=== PATIENT | female | born 1965 | race Caucasian/White ===

== ENCOUNTER → 2017-08-04 | Day surgery (SDC) | payer OTHER ==
[~2017-08-04] VITALS: Ht 170.2 cm; Wt 59.0 kg
[~2017-08-04] MED LIST: COSYNTROPIN INJ 1 MCG in SYRINGE 0 ML IV SCH; GABA-112 PO; GABA-1220 PO; GEODON; HYDR-600 PO; LIDOCAINE PATCH; MORP15TA19; NAPR-22; SIMV10TA2; TRAZ100T29 PO; TRICOR; VENL150C71 PO; [UNRECOGNIZED DRUG - OTHER] PO; [UNRECOGNIZED DRUG - OTHER] PO; cymbalta
[2017-08-04 08:01] VITALS: BP 105/68; PULSE 65; TEMP 36.6; O2SAT 98; Ht 170.2 cm; Wt 59.0 kg
[2017-08-04 08:55] VITALS: BP 107/67; PULSE 51; TEMP 36.6
[2017-08-04 09:27] VITALS: BP 96/45; PULSE 54; TEMP 36.5
--- NOTE | 2017-08-06 14:06 | EDITING REQUIRED CODING QUERY ---
TREATMENT RENDERED WITHOUT A DIAGNOSIS To promote full compliance with coding requirements relating to patient care, physician participation is requested in all cases of remote coders uncertainty. Please assist us with the question(s) below: Coding Question: The patient is receiving CORTROSYN INJECTION, as noted in the ORDER HISTORY of the record. Please document the diagnosis that is being addressed by the medication/treatment. Provider Response: Thank you Anna De Jesus
--- NOTE | 2017-09-04 08:59 | CODING QUERY NO DIAGNOSIS ---
TREATMENT RENDERED WITHOUT A DIAGNOSIS To promote full compliance with coding requirements relating to patient care, physician participation is requested in all cases of poultry scientist uncertainty. Please assist us with providing a diagnosis/symptom for the test(s) below: A diagnosis/symptom was not documented on your Order. A valid diagnosis/symptom is required to bill all insurances. Please remember that we are unable to code a diagnosis of rule out, probable, possible, questionable, or suspected. Tests that require a diagnosis: * IV COSYNTROPIN DIAGNOSIS: * DOS: 08/03/17 Provider Signature: Date: Thank you Anna De Jesus Health Information Management Once completed, please kindly fax back to [phone] For questions please call [phone]
== END | disposition home or self-care (01) ==
LOC: C.MTU 07:41
PROVIDERS: ATTEND Internal Medicine Endocrinology, Diabetes & Metabolism
DX: E27.40 Unspecified adrenocortical insufficiency (principal)

== ENCOUNTER 2024-04-01 12:08 | Inpatient (IN) ==
[2024-04-01 12:59] LABS: Appearance Urine Clear (Clear); Bilirubin Urine Negative (Negative); Blood Urine Negative (Negative); Color Urine Yellow; Glucose Urine UA Negative (Negative); Ketones Urine Trace (Negative); Leukocyte Esterase Urine Negative (Negative); Nitrite Urine Negative (Negative); Protein Urine Negative (Negative); Specific Gravity Urine 1.008 (1.000-1.030); Urobilinogen Urine Negative (Negative); pH Urine 6.5 (4.5-7.5)
[2024-04-01 13:17] LABS: Basophils # (auto) 0.08 K/uL (0.00-0.20); Basophils % (auto) 0.9 %; Eosinophils # (auto) 0.08 K/uL (0.00-0.50); Eosinophils % (auto) 0.9 %; Hematocrit (blood only) 50.3 % (37.0-47.0); Hemoglobin 17.2 g/dl (12.0-16.0); Immature Granulocytes # (auto) 0.03 K/uL (0.01-0.20); Immature Granulocytes % (auto) 0.3 %; Lymphocytes # (auto) 2.01 K/uL (1.20-3.40); Lymphocytes % (auto) 22.3 %; Mean Corpuscular Hemoglobin 28.8 pg (25.0-34.0); Mean Corpuscular Hgb Conc 34.2 g/dL (32.0-36.0); Mean Corpuscular Volume 84.3 fL (80.0-100.0); Mean Platelet Volume 9.9 fL (9.4-12.4); Monocytes # (auto) 0.65 K/uL (0.11-0.59); Monocytes % (auto) 7.2 %; Neutrophils # (auto) 6.18 K/uL (1.40-6.50); Neutrophils % (auto) 68.4 %; Platelet Count 299 K/uL (130-400); RDW Coefficient of Variation 14.2 % (11.5-14.5); RDW Standard Deviation 43.2 fL (36.4-46.3); Red Blood Count 5.97 M/uL (4.20-5.40); White Blood Count 9.03 K/ul (4.8-10.8)
[2024-04-01 13:38] LABS: Albumin Globulin Ratio 1.5 (0.9-2); Albumin Level 4.7 gm/dl (3.4-5.0); BUN Creatinine Ratio 14.7 (10-20); Bilirubin,Total 0.7 mg/dl (0.2-1.0); Calcium 10.3 mg/dl (8.6-10.3); Globulin 3.2 gm/dl (2.5-4.0); Total Protein 7.9 gm/dl (6.0-8.3)
--- NOTE | 2024-04-01 14:36 | Emergency Department Note ---
Impression & Plan Decreased sensation, Bilateral leg weakness, Back pain ED Provider Note Name: ZAY CREWS Age: 58 Sex: Female Arrives Via: Ambulance Informant: Patient ED Provider: Marcellus Pressley MD Chief Complaint: Leg paresthesias and weakness Impression: As per impressions above Medical Decision Makin-year-old female with a history of smoking and back surgeries arrives for evaluation of acute onset bilateral leg weakness and paresthesias. Patient states she awoke with left leg paresthesias and weakness which progressed to the right leg and then to mid abdomen downward. Initially associate with no pain whatsoever. On my evaluation patient has a cool somewhat mottled left lower leg which I cannot palpate pulses either posterior knee or in foot. Leg was wrapped in warm blankets and she was started on IV fluids and taken emergently to CT. CT angiography of abdomen with bilateral leg runoff was obtained. Fortunately shows no clear obstruction and by the time patient arrived back in the ER she has no further discoloration of legs they are now warm and pulses have returned. Unfortunately she is now describing severe lower back pain. She was given IV Dilaudid x 2 with improvement. Unclear etiology of acute ischemic findings of left leg but is now clearly resolved. Possibly just some sort of vasospasm in the setting of underlying pathology. Due to the now development of severe back pain and still having weakness of bilateral legs though no no loss of bowel bladder control MRIs indicated. MRI of thoracic and lumbar spine is ordered as symptoms are from umbilicus downward only. In the setting of degree of symptoms and and need for advanced imaging plan will be to bring in all awaiting imaging complete and for further workup. Orthopedic spine is on-call and is the surgeon who is previously operated on her. Patient has no upper neurodeficits or focal deficits on 1 side versus other thus we will hold off on neuroimaging of brain at this time. Triage/Nursing Notes reviewed by Me Differential:Infection, dehydration, metabolic abnormality, hypo/hyperglycemia, electrolyte disturbance, anemia, hypoxia, cardiac sources, intracerebral event, toxicologic, neurologic, as well as other pathologies. Vital Signs: reviewed and remarkable for no significant abnormalities Interventions: Dilaudid IV x 2, Decadron IV Labs:ED labs Reviewed by me and remarkable for no significant abnormalities Imaging:CT angiography of the abdomen and bilateral leg runoff reveals no evidence of occlusion as per my informal interpretation. This was confirmed by radiologist. MRI of the lumbar and thoracic spine ordered and pending. Consults:Discussed with hospitalist for further management and evaluation. Plan: Disposition:Hospitalization. Condition: Good History of Present Illness: 58-year-old female arrives for evaluation of bilateral leg weakness. Patient notes that she awoke this morning and felt like her left leg was dull and numb. It rapidly extended to her right leg. She now cannot use her legs there is severely weak. She states she cannot feel either leg either. Notes she has been told her left leg is very cold. She now cannot feel anything from her mid abdomen downwards. She denies any specific pain associated with this. She has had no recent falls, trauma, injuries. She has no history of similar and at times her left leg hurts due to previous surgery but this does not feel like those previous issues. Patient notes she had a fall a couple weeks ago but no specific injury at that time. She has no history of occlusive issues. She is a smoker. She does not have a history of A-fib or irregular heartbeats. Does have a history of low blood pressure at times. Past Medical History:See Below Home Medications:See Below Allergies:See Below Vitals:Blood Pressure: 142/95, Pulse 76, RR 18, T 36.7C, O2 99% on RA Physical Exam: GENERAL: Patient is mildly anxious appearing and in minimal distress. RESPIRATORY: No dyspnea. Clear to auscultation and equal bilaterally. CARDIOVASCULAR: Regular rate and rhythm.No murmur appreciated. GASTROINTESTINAL: Abdomen soft, non-tender, no peritonitis. BACK: No midline tenderness, no CVA tenderness EXTREMITIES: Left lower extremity is cool to touch mildly erythematous without pulses. Unable to move foot or knee. Unable to feel any sensation to left leg. Right foot is a bit warmer with better coloration. Very slight anterior foot pulse noted but no posterior pulse noted. Unable to palpate pulse behind knee either. NEUROLOGIC: Alert and oriented. No focal neurologic deficits appreciated SKIN: No rash, no jaundice, no diaphoresis. PSYCH: Appropriate GCS: 15 ED Course: Times/Reassessments: On return from CT patient noting severe low back pain following moving back and forth trying to get on and off the CT table. Does note that she can now feel her legs a little bit better though. She by examination has pulses in bilateral lower legs now left leg is better colored still complaining of decreased sensation. States feeling tingling and [id number] in the leg. Marcellus Pressley MD Past Med/Surg History Problem List (Updated 04/02/24 @ 14:46 by Marcellus Pressley MD) Back pain (Acute) Bilateral leg weakness (Acute) Decreased sensation (Acute) Encounter for pre-operative examination Medical History (Updated 04/02/24 @ 14:46 by Marcellus Pressley MD) Poor historian Necrotizing fasciitis Rectal bleeding complaints after lap babita (11/2019) > [place] CTS with evidence of right buttocks necrotizing fasciitis > life flighted to [facility], debridement/colostomy, I&D > subsequent colostomy reversal, no recent issues Rheumatoid arthritis Osteoarthritis Chronic back pain Cervical/lumbar region [place] disease Monitored by PCP (per 05/2020 note, "stable. Continue midodrine for hypotension. Not currently on steroids.") Chronic headaches Follows with Dr. Orellana Reflex sympathetic dystrophy Hx (reason for LLE ana cristina) Depression Anxiety Orthostatic hypotension Surgical History History of appendectomy Per [facility] records History of colon surgery Takedown loop sigmoid colostomy, sigmoid colectomy with colocolonic anastomosis per [facility] records History of laparotomy History of cholecystectomy Lap cholecystectomy (10/24/19): Grade view 1, [place]#2, ETT 7.0 at [facility] History of colonoscopy History of knee surgery x4 (including LLE ana cristina) History of hysterectomy + USO H/O section x3 Family History Father Arthritis Cardiac disorder Hypertension Thyroid disease Cancer Mother Thyroid disease Hypertension Kidney disease Cancer Social History (Updated 11/23/20 @ 16:03 by Nicki Peterson RN) Smoking Status: Current every day smoker Tobacco Type: Cigarettes Cigarettes Per Day: 1 pack/day; Second Hand Exposure: Yes (PARENTS SMOKED); Do You Dip or Chew Tobacco: No; Hx Alcohol Use: No Hx Substance Use: No Preferred Language: Paraguayan Communication Ability: Effective Antique Furniture Repairer Required: No Beliefs That Will Affect Care: None Current Living Situation: Family Current Living Situation Comment: granddaughter lives with her current occupational status: disabled Feels Safe at Home: Yes Safety Concerns: Feels Safe At This Time Assistive Devices: Cane Allergies Allergies Allergy/AdvReac Type Severity Reaction Status Date / Time No Known Allergies Allergy Verified 12/11/20 08:46 Home Meds Home Medications Medication Instructions Recorded Confirmed aspirin 81 mg tablet,delayed 81 mg PO DAILY 04/01/24 04/01/24 release atorvastatin 40 mg tablet (Lipitor) 40 mg PO DAILY 04/01/24 04/01/24 baclofen 20 mg tablet 20 mg PO TID 04/01/24 04/01/24 betamethasone dipropionate 0.05 % 1 applic topical BID 04/01/24 04/01/24 topical cream duloxetine 60 mg capsule,delayed 60 mg PO DAILY 04/01/24 04/01/24 release furosemide 40 mg tablet (Lasix) 40 mg PO DAILY PRN swelling 04/01/24 04/01/24 gabapentin 400 mg capsule 400 mg PO TID 04/01/24 04/01/24 hydrocortisone 5 mg tablet See Rx Instructions .Route .COMPLEX 04/01/24 04/01/24 hydroxychloroquine 200 mg tablet 400 mg PO HS 04/01/24 04/01/24 hydroxyzine HCl 25 mg tablet 25 mg PO TID PRN Anxiety 04/01/24 04/01/24 midodrine 10 mg tablet 10 mg PO TID 04/01/24 04/01/24 mirtazapine 7.5 mg tablet 7.5 mg PO HS 04/01/24 04/01/24 pantoprazole 40 mg tablet,delayed 40 mg PO BID 04/01/24 04/01/24 release plecanatide 3 mg tablet (Trulance) 3 mg PO DAILY 04/01/24 04/01/24 potassium chloride 10 mEq 10 meq PO BID 04/01/24 04/01/24 capsule,extended release ropinirole 2 mg tablet 2 mg PO HS 04/01/24 04/01/24 semaglutide (weight loss) 0.25 0.5 mg subcut WK 04/01/24 04/01/24 mg/0.5 mL subcutaneous pen injector (Yassine) trazodone 100 mg tablet 100 mg PO HS 04/01/24 04/01/24 Results & Data (ED) Vital Signs Vital Signs - 24 hr 04/01/24 15:00 04/01/24 15:00 04/01/24 15:02 Pulse Rate 85 Pulse Rate [Apical] 87 Pulse Rate from SpO2 Sensor 78 Respiratory Rate 21 23 Respiratory Effort / Characteristics Non-Labored Spontaneous Respiratory Depth Normal Respiratory Pattern Regular Blood Pressure 132/93 Blood Pressure [Right Arm] 132/93 Blood Pressure Mean 118 Blood Pressure Mean [Right Arm] 106 Blood Pressure Position [Right Arm] Lying Pulse Oximetry 97 96 Oxygen Delivery Method Room Air 04/01/24 15:02 04/01/24 15:06 04/01/24 15:17 Pulse Rate 79 Pulse Rate [Apical] Pulse Rate from SpO2 Sensor 80 Respiratory Rate 27 H Respiratory Effort / Characteristics Respiratory Depth Respiratory Pattern Blood Pressure 132/93 146/107 H Blood Pressure [Right Arm] Blood Pressure Mean 118 129 Blood Pressure Mean [Right Arm] Blood Pressure Position [Right Arm] Pulse Oximetry 99 Oxygen Delivery Method 04/01/24 15:17 04/01/24 15:17 04/01/24 15:18 Pulse Rate Pulse Rate [Apical] 77 Pulse Rate from SpO2 Sensor Respiratory Rate 19 Respiratory Effort / Characteristics Non-Labored Spontaneous Respiratory Depth Normal Respiratory Pattern Regular Blood Pressure 146/107 H 146/107 H Blood Pressure [Right Arm] 146/107 H Blood Pressure Mean 129 129 Blood Pressure Mean [Right Arm] 120 Blood Pressure Position [Right Arm] Lying Pulse Oximetry 97 Oxygen Delivery Method Room Air 04/01/24 15:21 04/01/24 15:45 04/01/24 15:45 Pulse Rate 79 Pulse Rate [Apical] Pulse Rate from SpO2 Sensor 78 Respiratory Rate 15 Respiratory Effort / Characteristics Respiratory Depth Respiratory Pattern Blood Pressure 147/83 H 147/83 H Blood Pressure [Right Arm] Blood Pressure Mean 111 111 Blood Pressure Mean [Right Arm] Blood Pressure Position [Right Arm] Pulse Oximetry 96 Oxygen Delivery Method 04/01/24 15:45 04/01/24 15:57 04/01/24 16:01 Pulse Rate 81 Pulse Rate [Apical] Pulse Rate from SpO2 Sensor 79 Respiratory Rate 18 Respiratory Effort / Characteristics Respiratory Depth Respiratory Pattern Blood Pressure 147/83 H 124/87 Blood Pressure [Right Arm] Blood Pressure Mean 111 115 Blood Pressure Mean [Right Arm] Blood Pressure Position [Right Arm] Pulse Oximetry 95 Oxygen Delivery Method 04/01/24 16:06 04/01/24 16:15 04/01/24 16:30 Pulse Rate 72 71 Pulse Rate [Apical] 63 Pulse Rate from SpO2 Sensor 73 69 Respiratory Rate 11 L 12 13 Respiratory Effort / Characteristics Non-Labored Spontaneous Respiratory Depth Normal Respiratory Pattern Regular Blood Pressure Blood Pressure [Right Arm] 143/81 H Blood Pressure Mean Blood Pressure Mean [Right Arm] 101 Blood Pressure Position [Right Arm] Semi-fowlers Pulse Oximetry 96 99 100 Oxygen Delivery Method Room Air 04/01/24 16:31 04/01/24 16:31 04/01/24 18:00 Pulse Rate Pulse Rate [Apical] 69 Pulse Rate from SpO2 Sensor Respiratory Rate 19 Respiratory Effort / Characteristics Non-Labored Spontaneous Respiratory Depth Normal Respiratory Pattern Regular Blood Pressure 159/114 H 159/114 H Blood Pressure [Right Arm] 135/89 Blood Pressure Mean 125 125 Blood Pressure Mean [Right Arm] 104 Blood Pressure Position [Right Arm] Semi-fowlers Pulse Oximetry 97 Oxygen Delivery Method Room Air 04/01/24 18:03 04/01/24 18:04 Pulse Rate 77 Pulse Rate [Apical] Pulse Rate from SpO2 Sensor 77 Respiratory Rate 11 L Respiratory Effort / Characteristics Respiratory Depth Respiratory Pattern Blood Pressure 135/89 Blood Pressure [Right Arm] Blood Pressure Mean 121 Blood Pressure Mean [Right Arm] Blood Pressure Position [Right Arm] Pulse Oximetry 98 Oxygen Delivery Method Laboratory Data 04/02/24 06:43 04/02/24 06:43 Lab Results 04/01/24 04/01/24 Range/Units 12:45 13:00 WBC 9.03 (4.8-10.8) K/ul RBC 5.97 H (4.20-5.40) M/uL Hgb 17.2 H (12.0-16.0) g/dl Hct 50.3 H (37.0-47.0) % MCV 84.3 (80.0-100.0) fL MCH 28.8 (25.0-34.0) pg MCHC 34.2 (32.0-36.0) g/dL RDW Std Deviation 43.2 (36.4-46.3) fL RDW Coeff of Marcy 14.2 (11.5-14.5) % Plt Count 299 (130-400) K/uL MPV 9.9 (9.4-12.4) fL Immature Gran % (Auto) 0.3 % Neut % (Auto) 68.4 % Lymph % (Auto) 22.3 % Catron % (Auto) 7.2 % Eos % (Auto) 0.9 % Baso % (Auto) 0.9 % Neut # (Auto) 6.18 (1.40-6.50) K/uL Lymph # (Auto) 2.01 (1.20-3.40) K/uL Catron # (Auto) 0.65 H (0.11-0.59) K/uL Eos # (Auto) 0.08 (0.00-0.50) K/uL Baso # (Auto) 0.08 (0.00-0.20) K/uL Immature Gran # (Auto) 0.03 (0.01-0.20) K/uL PT 10.9 (9.0-12.0) Seconds INR 1.0 (0.9-1.1) APTT 28 (21-31) Seconds PTT Ratio 1.0 Sodium 142 (136-145) mmol/L Potassium 4.0 (3.5-5.1) mmol/L Chloride 106 (98-107) mmol/L Carbon Dioxide 26 (21-32) mmol/L Anion Gap 10 (3-11) BUN 15 (6-23) mg/dl Creatinine 1.02 (0.6-1.2) mg/dl Est Cr Clr Drug Dosing 71.0 ml/min eGFR 63.77 BUN/Creatinine Ratio 14.7 (10-20) Glucose 81 (70-99(Fasting)) mg/dl Calcium 10.3 (8.6-10.3) mg/dl Total Bilirubin 0.7 (0.2-1.0) mg/dl AST 20 (13-39) U/L ALT 16 (7-52) U/L Alkaline Phosphatase 131 H (34-104) U/L Total Creatine Kinase 65 (26-192) U/L Total Protein 7.9 (6.0-8.3) gm/dl Albumin 4.7 (3.4-5.0) gm/dl Globulin 3.2 (2.5-4.0) gm/dl Albumin/Globulin Ratio 1.5 (0.9-2) Vitamin B12 437 (180-914) pg/ml TSH 0.895 (0.300-4.500) uIu/ml Urine Color Yellow Urine Appearance Clear (Clear) Urine pH 6.5 (4.5-7.5) Ur Specific [place] 1.008 (1.000-1.030) Urine Protein Negative (Negative) Urine Glucose (UA) Negative (Negative) Urine Ketones Trace H (Negative) Urine Blood Negative (Negative) Urine Nitrite Negative (Negative) Urine Bilirubin Negative (Negative) Urine Urobilinogen Negative (Negative) Ur Leukocyte Esterase Negative (Negative) Administered Medications Atorvastatin Calcium (Atorvastatin 40 Mg Tab) 40 mg PO DAILY KAREEN Stop: 05/02/24 08:59 Last Admin: 04/02/24 07:52 Dose: 40 mg Documented By: LISAR Duloxetine HCl (Duloxetine Hcl 60 Mg Cap) 60 mg PO DAILY KAREEN Stop: 05/02/24 08:59 Last Admin: 04/02/24 07:51 Dose: Not Given Documented By: LISAR Gabapentin (Gabapentin 400 Mg Cap) 400 mg PO TID KAREEN Stop: 05/01/24 20:59 Last Admin: 04/02/24 12:31 Dose: 400 mg Documented By: Admin: 04/02/24 07:51 Dose: 400 mg Documented By: Admin: 04/01/24 21:50 Dose: 400 mg Documented By: CRICKET Heparin Sodium (Porcine) (Heparin Sod 5,000 Unit/0.5 Ml Vial) 5,000 units SQ Q8 KAREEN Stop: 05/01/24 21:59 Last Admin: 04/02/24 12:33 Dose: 5,000 units Documented By: Admin: 04/02/24 04:31 Dose: Not Given Documented By: Admin: 04/01/24 21:57 Dose: Not Given Documented By: CRICKET Hydrocortisone (Hydrocortisone 10 Mg Tab) 5 mg PO DAILY@1400 KAREEN Stop: 05/02/24 13:59 Last Admin: 04/02/24 12:30 Dose: 5 mg Documented By: TOM Hydroxychloroquine Sulfate (Hydroxychloroquine Sulfate 200 Mg Tab) 400 mg PO HS KAREEN Stop: 05/01/24 20:59 Last Admin: 04/01/24 21:51 Dose: 400 mg Documented By: CRICKET Midodrine (Midodrine Hcl 10 Mg Tab) 10 mg PO 0700,1200,1500 KAREEN Stop: 05/02/24 06:59 Last Admin: 04/02/24 12:31 Dose: 10 mg Documented By: Admin: 04/02/24 07:50 Dose: 10 mg Documented By: TOM Mirtazapine (Mirtazapine Tab 15 Mg Tab) 7.5 mg PO HS [facility] Stop: 05/01/24 20:59 Last Admin: 04/01/24 21:52 Dose: 7.5 mg Documented By: CRICKET Miscellaneous (Order Awaiting Action) 1 each N/A QS KAREEN Stop: 05/02/24 00:00 Last Admin: 04/02/24 07:01 Dose: Not Given Documented By: Admin: 04/02/24 00:06 Dose: Not Given Documented By: CRICKET Oxycodone HCl (Oxycodone Hcl Ir 5 Mg Tab (Immediate Release)) 5 mg PO Q6H PRN PRN Reason: Mod-Sev Pain (Scale 4-10) Stop: 04/15/24 21:34 Last Admin: 04/02/24 07:57 Dose: 5 mg Documented By: Admin: 04/01/24 21:49 Dose: 5 mg Documented By: CRICKET Pantoprazole Sodium (Pantoprazole 40 Mg Tab) 40 mg PO BID [facility] Stop: 05/01/24 20:59 Last Admin: 04/02/24 07:51 Dose: 40 mg Documented By: Admin: 04/01/24 21:51 Dose: 40 mg Documented By: CRICKET Potassium Chloride (Potassium Chloride 10 Meq Tabcr) 10 meq PO BID [facility] Stop: 05/01/24 20:59 Last Admin: 04/02/24 07:54 Dose: 10 meq Documented By: Admin: 04/01/24 21:50 Dose: 10 meq Documented By: CRICKET Ropinirole HCl (Ropinirole Hcl 2 Mg Tablet) 2 mg PO HS [facility] Stop: 05/01/24 20:59 Last Admin: 04/01/24 21:53 Dose: 2 mg Documented By: CRICKET Triamcinolone Acetonide (Triamcinolone Acet 0.5% Cr 15 Gm Tube) 1 appln TOP BID [facility] Stop: 05/01/24 20:59 Last Admin: 04/02/24 07:53 Dose: Not Given Documented By: Admin: 04/01/24 21:51 Dose: Not Given Documented By: CRICKET Discontinued Medications Dexamethasone Sodium Phosphate (DexamethasonePf 10 Mg/Ml Vial) 10 mg IV NOW ONE Stop: 04/01/24 16:09 Last Admin: 04/01/24 16:27 Dose: 10 mg Documented By: JOHN Hydromorphone HCl (Hydromorphone Inj 1 Mg/Ml Syringe) 1 mg IV NOW STA Stop: 04/01/24 15:10 Last Admin: 04/01/24 15:16 Dose: 1 mg Documented By: JOHN Sodium Chloride (Nss) 1,000 mls @ 999 mls/hr IV .Q1H1M ONE Stop: 04/01/24 15:36 Last Infusion: 04/01/24 16:23 Dose: Infused Documented By: Admin: 04/01/24 15:06 Dose: 999 mls/hr Documented By: JOHN Ioversol (Optiray 320 125ml) 120 ml IV ONCE ONE Stop: 04/01/24 14:45 Last Admin: 04/01/24 14:44 Dose: 120 ml Documented By: FLOYD Discharge Plan Visit Data Chief Complaint: Leg Weakness, Bilateral Stated Complaint: numbness torso down ED Provider: Marcellus Pressley Discharge Problem: Decreased sensation, Bilateral leg weakness, Back pain Patient Disposition: Admitted As Inpatient Discharge Instructions Interventions: ED Discharge Assessment Last Done: 04/01/24 20:09 Discharge Problem: Back pain Qualifiers: Back pain location: low back pain Chronicity: acute Back pain laterality: b ilateral Sciatica presence: without sciatica Qualified Code(s): M54.50 - Low back pain, unspecified
[2024-04-01] MEDS: OPTIRAY 320 125ml IV ONE (14:44)
[2024-04-01] MEDS: SODIUM CHLORIDE 0.9% 1,000 ML IV ONE (15:06)
[2024-04-01] MEDS: HYDROmorphone INJ 1 MG/ML SYRINGE IV STA (15:16)
[2024-04-01 15:41] LABS: Partial Thromboplastin Time 28 Seconds (21-31); Prothrombin Time 10.9 Seconds (9.0-12.0)
--- NOTE | 2024-04-01 15:42 | CT Scan Report ---
CT ang AA amara velasquez prosper CLINICAL HISTORY: aortic occlusion concern TECHNIQUE: CT angiography of the abdomen and pelvis with bilateral lower extremity runoff after 120 c c Optiray IV. Sagittal and coronal reformats and MIPS were created. DLP is [id number]. COMPARISON STUDY: 11/03/[address] FINDINGS: Vascular findings: There are mild scattered atherosclerotic calcifications most prominent at the dist al aorta. No abdominal aortic aneurysm or significant aortic luminal narrowing seen. Mesenteric and r enal arteries are patent. Bilateral common, internal, and external iliac and bilateral common femoral arteries show no significant narrowing or occlusion. Right lower extremity: Deep femoral artery is patent. Right SFA/pop shows no significant narrowing or occlusion. There is three-vessel runoff to the right foot. Left lower extremity: Deep femoral artery is patent. Left SFA/pop shows no significant narrowing. The re is three-vessel runoff to the left foot. ABDOMEN: Gallbladder is surgically absent. Liver, spleen, pancreas, and adrenal glands are unremarkab le. Kidneys show no hydronephrosis. ABDOMEN: Wood catheter is present in the urinary bladder is decompressed. Uterus is absent. No adnex al mass. There is an interval [id number] sigmoid surgical anastomosis. No bowel inflammation or obs truction seen. No free fluid or free air. No enlarged adenopathy. Osseous structures: There is lower lumbar metallic fusion. José Miguel is present from the proximal left femu r to the distal left tibia. No acute osseous findings. IMPRESSION: 1. No acute findings. 2. No significant arterial narrowing or occlusion seen. 3. Otherwise as described. ACT 112: Negative or not required by law. Electronically signed by: Earl Alfonso M.D. 04/01/2024 3:40 PM
[2024-04-01] MEDS: dexAMETHasone**PF** 10 MG/ML VIAL IV ONE (16:27)
[2024-04-01] MEDS ORDERED: POLYETHYLENE (MIRALAX) 17 GM PACK PO PRN (18:37)
[2024-04-01] MEDS ORDERED: ACETAMINOPHEN 325 MG TAB PO PRN (18:37)
[2024-04-01] MEDS ORDERED: ALUMINUM/MAGNESIUM SUSP 30 ML UDC PO PRN (18:37)
[2024-04-01] MEDS ORDERED: MAGNESIUM HYDROXIDE SUSP 30 ML UDC PO PRN (18:37)
--- NOTE | 2024-04-01 18:44 | History & Physical Report ---
Date of Service April 01, 2024 Assessment & Plan (1) Decreased sensation: Plan Past medical history of Maxx's disease, hyperlipidemia, orthostatic hypotension, GERD, irritable bowel syndrome, CKD, lumbar degenerative disease, osteoarthritis, lupus, generalized anxiety disorder presented to the hospital for evaluation of decreased sensation gradually progressing from her feet since this morning up to mid abdomen. Altered sensorium of Lower extremities Patient presents with pins and needlelike sensation extending from feet up to subxiphoid area gradually over few hours. No motor weakness (left leg weakness at baseline). No history of trauma/fall recently. Electrolytes within normal limits CK within normal limits CTA aorta with runoffno acute finding MRI lumbar spine shows multilevel lumbar disc pathology and postoperative status at L1-L2 through L5-S1 level. Multiple other findings present. MRI of the thoracic spine showed a small round T1w/T2w hyperintense focus at T1 vertebral body. Will consult Ortho spine for further assessment; patient had a history of back surgery in [address] Tena as per records. Obtain vitamin B12 level, TSH. 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 It may contain grammatical, syntax or spelling errors. Any formal questions or concerns about the content, text or information contained within the body of this dictation should be directly addressed to the provider for clarification History of Present Illness Chief Complaint: Ascending decreasing sensation for 1 day Primary Care Provider: Shazia Bee MD History obtained from interview with the patient and chart review. Past medical history of Custer's disease, hyperlipidemia, orthostatic hypotension, GERD, irritable bowel syndrome, CKD, lumbar degenerative disease, osteoarthritis, lupus, generalized anxiety disorder Patient presented to the hospital for evaluation of decreased sensation gradually progressing from her feet since this morning up to mid abdomen. She reports that she started to feel "pins and needle" sensation starting in her bilateral foot that gradually ascending upward to just below subxiphoid area. She denies any recent fall, trauma or injuries. She has no motor issues. Patient denies any recent viral illness, diarrhea, fever, chills, sore throat, chest pain, shortness of breath or abdominal pain. Allergies Allergy/AdvReac Type Severity Reaction Status Date / Time No Known Allergies Allergy Verified 12/11/20 08:46 Home Medications Medication Instructions Recorded Confirmed Type aspirin 81 mg tablet,delayed 81 mg PO DAILY 04/01/24 04/01/24 History release atorvastatin 40 mg tablet (Lipitor) 40 mg PO DAILY 04/01/24 04/01/24 History baclofen 20 mg tablet 20 mg PO TID 04/01/24 04/01/24 History betamethasone dipropionate 0.05 % 1 applic topical BID 04/01/24 04/01/24 History topical cream duloxetine 60 mg capsule,delayed 60 mg PO DAILY 04/01/24 04/01/24 History release furosemide 40 mg tablet (Lasix) 40 mg PO DAILY PRN swelling 04/01/24 04/01/24 History gabapentin 400 mg capsule 400 mg PO TID 04/01/24 04/01/24 History hydrocortisone 5 mg tablet See Rx Instructions .Route .COMPLEX 04/01/24 04/01/24 History hydroxychloroquine 200 mg tablet 400 mg PO HS 04/01/24 04/01/24 History hydroxyzine HCl 25 mg tablet 25 mg PO TID PRN Anxiety 04/01/24 04/01/24 History midodrine 10 mg tablet 10 mg PO TID 04/01/24 04/01/24 History mirtazapine 7.5 mg tablet 7.5 mg PO HS 04/01/24 04/01/24 History pantoprazole 40 mg tablet,delayed 40 mg PO BID 04/01/24 04/01/24 History release plecanatide 3 mg tablet (Trulance) 3 mg PO DAILY 04/01/24 04/01/24 History potassium chloride 10 mEq 10 meq PO BID 04/01/24 04/01/24 History capsule,extended release ropinirole 2 mg tablet 2 mg PO HS 04/01/24 04/01/24 History semaglutide (weight loss) 0.25 0.5 mg subcut WK 04/01/24 04/01/24 History mg/0.5 mL subcutaneous pen injector ([email or web address]) trazodone 100 mg tablet 100 mg PO HS 04/01/24 04/01/24 History Past Med/Surg History Problem List (Updated 04/01/24 @ 19:54 by Hong Bobo MD) Decreased sensation Encounter for pre-operative examination Medical History (Updated 04/01/24 @ 19:54 by Hong Bobo MD) Poor historian Necrotizing fasciitis Rectal bleeding complaints after lap babita (11/2019) > [place] [facility] CTS with evidence of right buttocks necrotizing fasciitis > life flighted to [facility] [place], debridement/colostomy, I&D > subsequent colostomy reversal, no recent issues Rheumatoid arthritis Osteoarthritis Chronic back pain Cervical/lumbar region Custer disease Monitored by PCP (per 05/2020 note, "stable. Continue midodrine for hypotension. Not currently on steroids.") Chronic headaches Follows with Dr. Orellana Reflex sympathetic dystrophy Hx (reason for LLE ana cristina) Depression Anxiety Orthostatic hypotension Surgical History History of appendectomy Per [facility] records History of colon surgery Takedown loop sigmoid colostomy, sigmoid colectomy with colocolonic anastomosis per [facility] records History of laparotomy History of cholecystectomy Lap cholecystectomy (10/24/19): Grade view 1, Woodson#2, ETT [address] [facility] History of colonoscopy History of knee surgery x4 (including LLE ana cristina) History of hysterectomy + USO H/O section x3 Family History Father Arthritis Cardiac disorder Hypertension Thyroid disease Cancer Mother Thyroid disease Hypertension Kidney disease Cancer Social History (Updated 11/23/20 @ 16:03 by Nicki Peterson RN) Smoking Status: Current every day smoker Tobacco Type: Cigarettes Cigarettes Per Day: 20 cigs/day (tobacco use x 40 years); Second Hand Exposure: Yes (PARENTS SMOKED); Do You Dip or Chew Tobacco: No; Hx Alcohol Use: Yes Alcohol type: hard liquor Hx Substance Use: No Preferred Language: Sami Communication Ability: Effective Cns Required: No Beliefs That Will Affect Care: None Current Living Situation: Family Current Living Situation Comment: GRANDDAUGHTER-LIVES W PT CURRENTLY current occupational status: disabled Feels Safe at Home: Yes Assistive Devices: None Review of Systems Review of Systems: All systems reviewed & are unremarkable except as noted in Subjective Physical Exam Physical Exam: Constitutional: Alert oriented x 3; not in distress. Respiratory: Bilateral vesicular breath sound. Cardiovascular: RRR, no murmur, no edema Vessels: no JVD or carotid bruit Chest: normal inspection of chest Abdomen: normal bowel sounds, soft, nontender, no hepatosplenomegaly Musculoskeletal: no cyanosis or clubbing, extremities motor strength 5/5 Skin: no rashes, warm and dry normal turgor Neurologic: PERRL, EOMI, accommodation nl, no face palsy, no dysarthria Motor strength 5 x 5 in all extremities except left lower extremity. Reports that her left leg is weak at baseline due to " titanium" brought. Decree sensation to light touch after subxiphoid area. She withdraws to painful stimuli at some areas. Psychiatric: A+Ox3, euthymic affect Results & Data Results & Data Vital Signs (Past 12 Hours) Vital Signs Temp Pulse Pulse Resp BP BP Pulse Ox 04/01/24 18:00 69 19 135/89 97 04/01/24 16:15 63 12 143/81 H 99 04/01/24 15:18 77 19 146/107 H 97 04/01/24 15:00 87 21 132/93 97 04/01/24 13:30 76 18 142/95 H 99 04/01/24 13:30 142/95 H 04/01/24 13:18 74 18 98 04/01/24 13:00 153/85 H 04/01/24 12:33 77 16 96 04/01/24 12:25 75 04/01/24 12:20 36.7 C 78 14 133/80 98 04/01/24 12:17 133/80 O2 Del Method 04/01/24 18:00 Room Air 04/01/24 16:15 Room Air 04/01/24 15:18 Room Air 04/01/24 15:00 Room Air 04/01/24 13:30 Room Air 04/01/24 13:30 04/01/24 13:18 04/01/24 13:00 04/01/24 12:33 04/01/24 12:25 04/01/24 12:20 Room Air 04/01/24 12:17
--- NOTE | 2024-04-01 18:46 | Magnetic Resonance Report ---
EXAM: MR thoracic spine wo con CLINICAL HISTORY: Bilateral leg weakness. Numb umbilicus to toes. TECHNIQUE: Multiplanar multi-sequential MRI sequences of the thoracic spine without contrast administration were obtained. COMPARISON: None. FINDINGS: Vertebrae: Normal alignment of the thoracic vertebrae. No fractures, lytic or sclerotic lesions. Mild spondylotic change noted. Schmor's node at the upper endplate of T7 vertebra. A small round T1W/T2W hyperintense focus at T11 vertebral body, could be a hemangioma. Intervertebral Discs: Mild decreased height and signal intensity of the intervertebral discs. Pfirmann grade 2. Level by level analysis: C7-T1: No significant disc pathology. No significant spinal canal stenosis. T1-T2: No significant disc pathology. No significant spinal canal stenosis. T2-T3: No significant disc pathology. No significant spinal canal stenosis. T3-T4: No significant disc pathology. No significant spinal canal stenosis. T4-T5: No significant disc pathology. No significant spinal canal stenosis. T5-T6: No significant disc pathology. No significant spinal canal stenosis. T6-T7: Minimal posterior central disc protrusion, indenting ventral thecal aspect and no foraminal compromise. No significant spinal canal stenosis. T7-T8: No significant disc pathology. No significant spinal canal stenosis. T8-T9: No significant disc pathology. No significant spinal canal stenosis. T9-T10: No significant disc pathology. No significant spinal canal stenosis. T10-T11: No significant disc pathology. No significant spinal canal stenosis. T11-T12: No significant disc pathology. No significant spinal canal stenosis. Spinal Cord: Normal signal intensity and morphology of the spinal cord. No evidence of intrinsic cord lesions, syrinx, or abnormal signal changes. Spinal Canal and Neural Foramina: Spinal canal is of normal caliber with no evidence of spinal stenosis. Neural foramina are patent bilaterally at all levels. No evidence of nerve root compression. Normal ligamentum flava morphology. Facet Joints: Normal appearance of the facet joints. No evidence of facet arthropathy or significant degenerative changes. Soft Tissues: Normal appearance of the paraspinal soft tissues. No abnormal masses, fluid collections, or signs of inflammation. Thoracic Kyphosis: Normal thoracic kyphosis without abnormal curvature. IMPRESSION: 1. Normal alignment of the thoracic vertebral bodies, intervertebral discs, spinal cord, nerve roots, and paraspinal soft tissues. 2. A small round T1W/T2W hyperintense focus at T11 vertebral body, could be a hemangioma. Electronically signed by Mel Cornejo 04-01-2024 6:46 PM
--- NOTE | 2024-04-01 19:12 | Magnetic Resonance Report ---
EXAM: MR lumbar spine wo con CLINICAL HISTORY: bilateral leg weakness/numbness. TECHNIQUE: Different MRI pulse sequences were performed in different planes for the lumbar spine without contrast. Images were sent through PACs for diagnostic interpretation. COMPARISON: MRI lumbar spine 03/08/2021. FINDINGS: Preserved physiological lumbar lordosis. Status post metallic hardware fixation by transpedicular screws/ana cristina device at L4, L5 and S1 vertebrae. Metallic interbody fusion devices. The metallic hardware induces inevitable blooming (ferromagnetic) artifacts that degrade the image quality. Spinolaminectomies of L4 and L5 neural arches opposite the corresponding L4-L5 and L5-S1 intervertebral discs. Postoperative changes are seen in the paraspinal muscles and posterior subcutaneous fat. Posteriorly oriented orthostatic subcutaneous edema is seen opposite the lumbar vertebrae, exhibiting low signals on T1 WI and bright signals on T2 on STIRWI. Schmorl's node and buckling of the upper vertebral endplate of the L5 vertebra. Schmorl's node is seen at the L4 lower vertebral endplate. Modic II marrow change is seen, with no other remarkable marrow changes. The scanned intervertebral discs show variable degrees of degeneration, denoted by low signal intensity on T2 WI and a relative reduction in height. Marginal osteophytes are also seen. Level by Level analysis: T12-L1: There is no focal disc pathology, spinal canal stenosis, or neural foraminal stenosis. L1-L2: There is a 2.3 mm annular bulge and 3.8 mm right central and subarticular extrusion with cranial migration indenting the thecal sac and compromising subarticular recesses more on the right side with impingement of the emerging nerve roots. There is mild spinal canal stenosis. No neural foraminal stenosis.Buckled ligamenta flava and arthropathic facet joints augment effects. L2-L3: There are 3 mm subarticular protrusions compromising subarticular recesses and neural foramina with impingement of the emerging nerve roots. Buckled ligamenta flava and arthropathic facet joints augment effects. L3-L4: There is a 3.3 mm annular bulge indenting the thecal sac, compromising the subarticular recesses. There is mild central canal stenosis and mild bilateral neural foraminal stenosis with impingement of the emerging nerve roots. Buckled ligamenta flava and arthropathic facet joints augment effects. L4-L5: There is postoperative bone hypertrophy and Condensed right perineural scarring, compromising. The subarticular recesses more on the right side with entrapment of the L5 nerve roots. A contrast-enhanced MRI study is recommended. L5-S1: There is A 2.4 mm annular bulge and 3.4 mm recurrent central herniation indenting the anterior epidural fat attenuating the subarticular recesses with mild bilateral neural foraminal stenosis with impingement of the emerging nerve roots. Arthropathic facet joints augment effects. The lower dorsal spinal cord, conus medullaris, and cauda equina nerve roots are unremarkable. Paravertebral soft tissue is unremarkable. No developmental canal stenosis. IMPRESSION: 1. Multilevel lumbar disc pathologies and postoperative status at the L1-L2 through the L5-S1 levels with effects exerted upon the spinal canal, subarticular recesses, and neural foramina with impingement of the emerging nerve roots. Postoperative scarring, buckled ligamenta flava and arthropathic facet joints augment effects. 2. Posteriorly oriented orthostatic subcutaneous edema is seen opposite the lumbar vertebrae, exhibiting low signals on T1 WI and bright signals on T2 on STIRWI. 3. Modic II marrow change. 4. L1-L2: There is a 2.3 mm annular bulge and 3.8 mm right central and subarticular extrusion with cranial migration. 5. L2-L3: There are 3 mm subarticular protrusions. 6. L3-L4: There is a 3.3 mm annular bulge. 7. L4-L5: There is postoperative bone hypertrophy and Condensed right perineural scarring. 8. L5-S1: There is A 2.4 mm annular bulge and 3.4 mm recurrent central herniation. 9. The comparison is consistent with a stationary course. 10. The reported findings explain the current clinical status. Electronically signed by Mel Cornejo 04-01-2024 7:12 PM
--- OUTSIDE RECORDS SUMMARY | 2024-04-01 20:44 | External Medical Summary | Summary of Care ---
Author Name Unknown Organization [facility] Address [address] [facility] [address] Phone [phone] Care Team Providers Care Supervisor Display [employer]ation Name Role Phone Shazia Bee MD Primary Care Provide r Reason for Visit * Reason Comments eRx-Medication Refill Encounter Details Date Type Department Care Team (Late st Contact Info) Description 03/26/2024 Refill Gastroenterology [address] [place] [address] Sheryl Orellana CRNP [address] [place] [address] Allergies No known active allergiesdocumented as of this encounter (statuses as of 03/28/2024) Medications BLOOD PRESSURE CUFF MISCIndications:F all for home BP monitoring 1 Kit 1 014 Active FOLIC ACID 800 MCG PO TABS Take 1 Tablet by mouth in the morning. 014 Active CYANOCOBALAMIN (VITAMIN B-12) 100 MCG Tablet Take 1 Tablet by mouth in the morning. Active calcium-vit D 500mg-200 units per tab 500-200 MG-UNIT per tablet Take 2 Tablets by mouth every morning. 020 Active Iron 325 (65 Fe) MG Oral Tablet Take 1 Tablet by mouth at bedtime. Active Magnesium 500 MG Oral Tablet Take 1 Tablet by mouth in the morning. Active Pramoxine HCl 1 % External LotionIndications :Cutaneous lupus erythematosus Apply to back twice daily as needed (please provide lotion wand, pt lives alone) 222 mL 2 022 Active Aspirin EC 81 MG Oral Tablet Delayed Release Take 1 Tablet by mouth in the morning. Active hydrOXYzine HCl 25 MG Oral Tablet TAKE ONE TABLET BY MOUTH IN THE MORNING, at noon, in the evening, and before bedtime if needed for itching or anxiety 40 Tablet 022 Active traZODone HCl 100 MG Oral Tablet (Desyrel)Indicati ons:Other insomnia Take 2 tablets for the first week and then reduce to just 1 tablet at bedtime. 30 Tablet 5 023 Active Additional Information Patient taking differently: 200 mg Oral HS, Take 2 tablets for the first week and then reduce to just 1 tablet at bedtime., Reported on 03/07/2024 Mirtazapine 7.5 MG Oral Tablet (Remeron) Take 1 Tablet by mouth at bedtime. 023 Active Ondansetron 4 MG Oral Tablet Disintegrating Place 1 Tablet on tongue every 8 hours as needed for Nausea or Vomiting. dissolve on tongue. 30 Tablet 5 023 Active Midodrine HCl 10 MG Oral Tablet (Proamatine)Indic ations:Orthostati c hypotension,Hypot ension, unspecified hypotension type Take one tablet shortly before or upon rising in the morning, midday, and late afternoon (not later than 6 PM) 270 Tablet 3 024 Active Potassium Chloride ER 10 MEQ Oral Capsule Extended ReleaseIndication s:Hypokalemia Take 1 Capsule by mouth in the morning and 1 Capsule before bedtime. 180 Capsule 1 024 Active Hydroxychloroquin e Sulfate 200 MG Oral Tablet (Plaquenil)Indica tions:Cutaneous lupus erythematosus 2 tablets each evening 180 Tablet 1 024 Active Atorvastatin Calcium 40 MG Oral Tablet (Lipitor) TAKE ONE TABLET BY MOUTH IN THE MORNING 90 Tablet 2 024 Active Furosemide 40 MG Oral Tablet (Lasix)Indication s:Bilateral lower extremity edema TAKE ONE TABLET BY MOUTH DAILY NEEDED for swelling 90 Tablet 2 024 Active Pantoprazole Sodium 40 MG Oral Tablet Delayed Release (Protonix)Indicat ions:Nausea and vomiting, unspecified vomiting type Take 1 Tablet by mouth in the morning and 1 Tablet before bedtime. Do not crush, split or chew the tablet. 60 Tablet 5 024 Active DULoxetine HCl 60 MG Oral Capsule Delayed Release Particles (Cymbalta) 024 Active Gabapentin 400 MG Oral Capsule (Neurontin)Indica tions:Spinal stenosis of lumbar region with neurogenic claudication Take 1 Capsule by mouth in the morning and 1 Capsule at noon and 1 Capsule before bedtime. 270 Capsule 3 024 Active Meloxicam 7.5 MG Oral Tablet (Mobic)Indication s:Degeneration of intervertebral disc of lumbar region with discogenic back pain and lower extremity pain,DDD (degenerative disc disease), cervical Take 1 Tablet by mouth in the morning and 1 Tablet before bedtime. for pain.. 180 Tablet 3 024 Active rOPINIRole HCl 2 MG Oral Tablet (Requip)Indicatio ns:RLS (restless legs syndrome) TAKE ONE TABLET BY MOUTH ONCE DAILY IN THE EVENING 90 Tablet 1 024 Active Hydrocortisone 5 MG Oral Tablet (Cortef)Indicatio ns:History of adrenal insufficiency 2 tab in the morning, and 1 tab around 2 pm, triple dose during illness, MDD 9 tabs 270 Tablet 3 024 Active Sucralfate 1 GM Oral Tablet (Carafate) TAKE ONE TABLET BY MOUTH AT BEDTIME. may also take up to 4 times daily if needed for nausea, epigastric pain 360 Tablet 1 024 Active Additional Information Patient taking differently: CAN TAKE UP TO 4 TIMES A DAY NEEDED, AND AT BEDTIME, Reported on 03/07/2024 Baclofen 20 MG Oral TabletIndications :Lumbar degenerative disc disease TAKE ONE TABLET BY MOUTH IN THE MORNING, at noon, and before bedtime if needed for muscle spasms 90 Tablet 025 Active Betamethasone Dipropionate 0.05 % External Cream (Diprosone) Apply topically to affected area 2 times a day. To affected area. Maximum 2 weeks at a time 45 g 3 025 Active Wegovy 0.5 MG/0.5ML Subcutaneous Solution Auto-injector (Semaglutide-Miguelg Management)Indica tions:Obesity (BMI 30-39.9) Inject 0.5 mg (1 pen) under the skin once a week. 2 mL 1 025 Active Trulance 3 MG Oral Tablet (Plecanatide) TAKE ONE TABLET BY MOUTH EVERY DAY 30 Tablet 025 Active Trulance 3 MG Oral Tablet (Plecanatide) Take 3 mg by mouth daily. 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 Spinal stenosis of lumbar re gion with neurogenic claudication 07/16/2021 Primary adrenocortical insufficiency 06/22/2020 Moderate episode of recurrent major depressive d isorder 04/01/2019 Orthostatic hypotension 12/17/2018 Hx of nonmelanoma skin cancer 06/18/2016 Overview (10/21/2022): BCC L NLF 2015 LEVI (generalized anxiety disorder) 04/26/2015 Osteoarthritis of knee 06/29/2012 Joint arthrodesis status 06/10/2012 Overview (10/24/2014): left knee Lumbar degenerative disc disease 05/14/2012 Dyslipidemia, goal LDL below 130 10/04/2010 Tobacco use disorder 01/08/2007 Reflex sympathetic dystrophy of lower limb 10/09 Overview (12/01/2016): ICD-10 update of inactive term Osteoarthrosis, localized, primary, involving lo wer leg 08/23/2004 Overview (12/03/2020): ICD-10 update of inactive term Reflex sympathetic dystrophy of upper extremity 12/09/2000 Overview (12/01/2016): ICD-10 update of inactive term Loss of teeth due to trauma, extraction, or periodontal disease Degenerative disc disease, cervical documented as of this encounter (statuses as of 03/28/2024) Resolved Problems Problem Noted Date Diagnosed Date Resolved Date Necrotizing fasciitis 01/25/20242024 Encounter for long-term (cur rent) use of medications 04/27/2023 01/25/2024 Lupus erythematosus tumidus 11/26/2022 10/30/2023 Hx of atypical nevus 10/21/2022 024 Sacroiliitis 04/30/2022 10/30/2023 Parastomal hernia 04/27/2020 06/22/2020 Colostomy status 11/22/2019 06/22/2020 Urinary retention 11/08/2019 12/13/2019 Sepsis 2019 11/22/2019 Necrotizing fasciitis 11/03/20192020 Overview (2019): Right buttock and perianal region Encounter for examination fo r normal comparison and control in clinical research program 01/05/2019 04/24/2020 Overview (06/18/2020): PERT (Performance of Epi proColon in Repeated Testing in the Intended Use Population) Epi proColon is an FDA approved blood test designed to detect Colon Cancer. The object of this study is to evaluate longitudinal performance of Epi proColon with respect to test positivity, longitudinal adherence to Epi proColon screening, adherence to follow-up colonoscopy and diagnostic yield, as well as assay failure rates. Contacts: PI: Dr. Shima De Jesus [facility]- Keri Zaman ([phone]) [facility]- Cate Trinidad ([phone]) Tiffanie Quinonez CRC- Julia Villafana ([phone]) Diagnosis changed due to Research Module. Go to Snapshot for study details. Anxiety 04/26/2015 11/20/2016 Recurrent major depressive disorder 04/14/2014 06/21/2019 Adrenal insufficiency 12/12/20132016 [employer] OTHER*[id number] 11/02/2013 03/19/2016 Overview (03/19/2016): Patient has completed participation in this research study. 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 015 Osteoarthritis, knee 05/14/2012 013 Primary localized osteoarthrosis, lower leg 10/04/2010 10/24/2014 Dyslipidemia, goal to be determined 02/06/2009 12/03/2009 Overview (02/06/2009): Per Lipid Taxonomy. Glucocorticoid deficiency 09/04/2008 ADVANCE DIRECTIVE INFORMATION 05/30/2005 01/04/2024 Overview (05/30/2005): No, Advance Directive brochure given to patient at prior appointment. Excessive menstruation 12/26/200306/11 LUMBAGO 10/05/2003 10/24/2014 Dental caries 11/17/2002 12/01/2012 Overview (06/05/2015): ICD-10 update of inactive term JOINT PAIN-L-LEG 03/31/2002 10/24/2014 Overview (06/11/2012): S/p left knee fusion on 06/10/12 Cervicalgia 03/31/2002 10/24/2014 CERVICAL DISC DISPLACMNT 07/20/2001 Mixed dyslipidemia 12/09/2000 9 Overview (02/06/2009): Per Lipid Taxonomy. Hypothyroidism 10/24/2014 documented as of this encounter (statuses as of 03/28/2024) Immunizations Name Administration Dates Next Due Hepatitis B, 20+ yrs 03/07/2024 Pneumococcal Conjugate Vacci ne, 20-valent ([id number]) 11/15/2021 Pneumococcal Polysaccharide PPV23 (Pneumovax) 06/26/2008 Seasonal Influenza Vac., MDV , IM, 0.5 mL (Fluzone) 12/01/2013,12/06/2012,11/18/2011,12/06,12/03/2009,12/26/2008,12/27/2007 ,01/08/2007,12/09/2005 Seasonal Influenza, PF, 6 M & above, IM , (FluLaval or Fluzone) 01/20/2023,11/15/2021,12/04/2020,11/21,12/17/2018,11/19/2017,11/20/2016 Seasonal Influenza, Quadriva lent, No Preserve, IM 12/17/2015,12/27/2014 Seasonal Influenza, Trivalen t, (IIV3), PF, (Fluzone) 11/06/2023 TDAP (age 10 and older)(Boostrix) 06/08/2018 TDAP, Age 7 and older, IM (Adacel) 08/27/2007 Zoster Vaccine Recombinant (Shingrix) 05/31/2019 ,04/01/2019 documented as of this encounter Social History Tobacco Use Types Packs/Day Years Used Date Smoking Tobacco: Every Day Cigarettes 1 42 Smokeless Tobacco: Never Alcohol Use Standard Drinks/Week Comments Not Currently 0 (1 standard drink = 0.6 oz pur e alcohol) PHQ-2 Answer Date Recorded PHQ Adult Total Score 16 01/25/2024 Hunger Vital Sign Answer Date Recorded Within the past 12 months, y ou worried that your food would run out before you got the money to buy more. Never true Within the past 12 months, t he food you bought just didn't last and you didn't have money to get more. Sometimes true Childcare Answer Date Recorded Do you feel overwhelmed with taking care of a child, family member or friend? No 10/23/2023 Does your family need help f inding childcare? (Household - for ages 0-17 years) Not on file 10/23/2023 Clothing Answer Date Recorded Have you been unable to get clothing when it was really needed? No 10/23/2023 Is your family able to get c lothes or diapers when needed? (Household - for ages 0-17 years) Not on file 10/23/2023 Personal Safety Answer Date Recorded Do you feel unsafe or have concerns for your saf ety? No 10/23/2023 Do you have concerns for you r family's safety? (Household - for ages 0-17 years) Not on file 10/23/2023 Utilities Answer Date Recorded Do you have trouble paying y our heating, water, or electric bill? No 10/23/2023 Is your family able to pay t he heat, water, or electric bill? (Household - for ages 0-17 years) Not on file 10/23/2023 Does your family have access to good internet? (Household - for ages 0-17 years) Not on file 10/23/2023 Employment Status Answer Date Recorded Are you unemployed or without regular income? No 10/23/2023 Does the household have a re gular source of income? (Household - for ages 0-17 years) Not on file 10/23/2023 Social Connections Answer Date Recorded How often do you feel lonely or isolated from those around you? Sometimes 10/23/2023 Financial Resource Strain Answer Date R ecorded Do you have any trouble payi ng for your medications, or do you think you might in the future? No 10/23/2023 Does your family have troubl e paying for medicine? (Household - for ages 0-17 years) Not on file 10/23/2023 Transportation Needs Answer Date Record ed READ ONLY Do you have troubl e getting a ride to medical visits or work? Never True 10/23/2023 Does your family have a hard time getting a ride to doctors visits? (Household - for ages 0-17 years) Not on file 10/23/2023 Has lack of transportation k ept you from medical appointments, meetings, work, or from getting things needed for daily living? Check all that apply. No 10/23/2023 Do you (or your family) have trouble finding or paying for a ride (transportation)? (Household - for ages 0-17 years) Not on file 10/23/2023 Housing Stability Answer Date Recorded Do you currently live in a s helter or have no steady place to sleep at night? No 10/23/2023 READ ONLY Do you think you a re at risk of becoming homeless? No 10/23/2023 Does your family worry about paying for your home or becoming homeless? (Household - for ages 0-17 years) Not on file 0 10/23/2023 Are you homeless or worried that you might be in the future? No 10/23/2023 Are you (or your family) gina eless or worried that you might be in the future? (Household - for ages 0-17 years) Not on file Food Insecurity Answer Date Recorded Do you need food for this week? No 10/23/2023 Are you able to get enough f ood for your family? (Household - for ages 0-17 years) Not on file 10/23/2023 Does your family need food t his week? (Household - for ages 0-17 years) Not on file 10/23/2023 Do you always have enough fo od for your family? (Household - for ages 0-17 years) Not on file 10/23/2023 Comments No Sex and Gender Information Value Date Recorded Sex Assigned at Female 06/13/2021 7:46 AM EDT Legal Sex Female 5:26 AM EST Gender Identity Female 06/13/2021 7:46 AM EDT Sexual Orientation Straight 06/13/2021 7: 46 AM EDT Occupation Industry Job Start Date Job End Date Not on file Not on file Not on file Not on file documented as of this encounter Functional Status * Are you deaf or do you have serious difficulty hearing? Answer Date of Assessment Author No 04/24/2020 5:38 PM Alexis Tran RN * Are you blind or do you have serious difficulty seeing, even when wearing glasses? Answer Date of Assessment Author No 04/24/2020 5:38 PM Alexis Tran RN * Do you have serious difficulty walking or climbing stairs? (5 years old or older) Answer Date of Assessment Author No 04/26/2020 12:17 PM Liliana Mas RN * Do you have difficulty dressing or bathing? (5 years old or older) Answer Date of Assessment Author No 04/24/2020 5:38 PM Alexis Tran RN * Because of a physical, mental, or emotional condition, do you have difficulty doing errands alone such as visiting a doctors office or shopping? (15 years old or older) Answer Date of Assessment Author No 04/24/2020 5:38 PM Alexis Tran RN documented as of this encounter Mental Status * Because of a physical, mental, or emotional condition, do you have serious difficulty concentrating, remembering, or making decisions? (5 years old or older) Answer Entry Date Author No 04/24/2020 5:38 PM EST Alexis Florez RN documented in this encounter Miscellaneous Notes * Telephone Encounter - Sheryl Orellana CRNP - 03/28/2024 2:19 PM EST Signed Prescriptions: Disp Refills Trulance 3 MG Oral Tablet (Plecanatide) 30 Tab*0 Sig: TAKE ONE TABLET BY MOUTH EVERY DAY Authorizing Provider: SHERYL ORELLANA * Telephone Encounter - Marissa Rosario CMA - 03/28/2024 7:50 AM ESTPending Prescriptions: Disp Refills Trulance 3 MG Oral Tablet [Pharmacy Med Na*30 Tab*0 Sig: TAKE ONE TABLET BY MOUTH EVERY DAY * Telephone Encounter - Interface, [facility] S[facility] Inbound - 03/28/2024 6:03 AM EST Pending Prescriptions: Disp Refills Trulance 3 MG Oral Tablet [Pharmacy Med Na*30 Tab*0 Sig: TAKE ONE TABLET BY MOUTH EVERY DAY * Telephone Encounter - Tawanda Lamin deshaun - 03/26/2024 5:07 PM ESTPending Prescriptions: Disp Refills Trulance 3 MG Oral Tablet [Pharmacy Med Na*30 Tab*0 Sig: TAKE ONE TABLET BY MOUTH EVERY DAY * Telephone Encounter - Tawanda Lamin deshaun - 03/26/2024 5:04 PM EST Did you pend patient's preferred pharmacy and medication before forwarding?yes Pharmacy: [facility] [id number] Pending Prescriptions: Disp Refills Trulance 3 MG Oral Tablet (Plecanatide) [*30 Tab*0 Sig: TAKE ONE TABLET BY MOUTH EVERY DAY Last Visit: 11/06/2023 (in office), Visit date not found (telemedicine) Next Visit: Visit date not found If no future appointments scheduled, and last appointment is greater than a year ago, please schedule patient for a follow-up appointment Last date the medication was ordered: 11/23/2023 Is this request for a controlled substance?No Urine Drug Screen:No results found. However, due to the size of the patient record, not all encounters were searched. Please check Results Review for a complete set of results. Patient Phone Numbers Labs: Lab Results Component Value Date/Time CREAT 1.1 (H) 01/20/2024 01:50 PM CREAT 1.11 (A) 08/21/2023 12:00 AM CREAT 1.0 11/22/2019 12:25 PM POTASSIUM 4.6 01/20/2024 01:50 PM POTASSIUM 4.5 08/21/2023 12:00 AM POTASSIUM 4.1 11/22/2019 12:25 PM TSH 1.56 01/20/2024 01:56 PM TSH 1.120 01/19/2023 12:00 AM TSH 0.63 2019 10:03 PM LDL 83 10/08/2023 09:40 AM LDL 82 05/02/2022 01:19 PM LDL 104 04/01/2019 03:51 PM LDL NOT APPLICABLE 04/01/2019 03:51 PM ALT 24 01/20/2024 01:50 PM ALT 41 (H) 10/19/2019 11:43 AM HGBA1C 5.7 (H) 03/31/2023 01:35 PM HGBA1C 5.4 11/02/2013 12:36 PM documented in this encounter Plan of Treatment Upcoming Encounters Date Type Department Care Team (Late st Contact Info) Description 04/27/2024 1:40 PM EST Office Visit Family Medicine [address] [place] [phone] Arlet Groves MD [address] [place] [address] [place] [phone] 05/24/2024 9:00 AM EDT Office Visit Cardiology [address] [place] [address] Quinn Uriostegui PA-C [address] [place] [address] 06/20/2024 8:40 AM EDT Office Visit Neurology [facility] [address] [place] [address] Cesar Palma MD [address] [facility] [place] [address] 10/18/2024 12:30 PM EDT Imaging Radiology [address] [place] [address] 01/30/2025 1:20 PM EST Office Visit Rheumatology [facility] [address] [place] [phone] Isidro Phillips MD [address] [employer] [place] [address] 03/15/2025 3:40 PM EST Office Visit Dermatology [address] [place] [address] Zonia Jordan PA-C [address] [place] [address] [place] [phone] Health Maintenance Due Date Last Done Comments COVID-19 Vaccine (#1) 1970 Fecal Occult Blood Test 2010 Sigmoidoscopy 2010 CKD PHOS USE SMARTSET 90174 04/30/2021 03/0 03/2020, 04/29/2020, 04/28/2020, Additional history exists Cologuard 06/02/2021 06/02/2018 Hepatitis B Vaccine (2 of 3 - 19+ 3-dose series) 04/04/2024 03/07/2024 GFR 07/19/2024 01/20/2024, 08/01, 06/22/2023, Additional history exists Mammogram 10/14/2024 10/15/2023, 10/01, 08/30/2021, Additional history exists CKD HGB USE SMARTSET 93352 12/27/202412/27, 08/21/2023, 06/22/2023, Additional history exists Albumin/Creatinine Ratio 01/19/2025 01/20/2024 DISCUSS TOBACCO CESSATION (REFER TO SMARTSET #7111) 01/24/2025 01/25/2024 (Discussed) Depression Monitoring 01/24/2025 01/25/2024 Diabetes Screening 01/19/2027 01/20/2024, 0 08/21/2023, 06/22/2023, Additional history exists Colonoscopy 02/08/2027 02/09/2024, 01/30, 04/24/2020, Additional history exists Colorectal Cancer Screening 02/08/2027 DTap/Tdap Vaccines (3 - Td or Tdap) 06/08/2028 06/08/2018, 08/27/2007 Lipid Panel 10/07/2028 10/08/2023, 03/0 04/2022, 03/25/2021, Additional history exists Zoster Vaccines Completed 05/31/2019, 04/01/2019 Pneumococcal Vaccine: 50+ Years Completed 11/15/2021, 06/26/2008 Influenza Vaccine (FLU shot) Completed 08/2023, 01/20/2023, 11/15/2021, Additional history exists Lung Cancer Screening Completed 11/12/2023, 022 HPV (Gardasil) Vaccine Aged Out No lo nger eligible based on patient's age to complete this topic MENINGOCOCCAL (MENACTRA/MENVEO) Aged Out No longer eligible based on patient's age to complete this topic documented as of this encounter Medical Devices Implanted Type Area Job Honer Device Identifier Shelf Expiration Date Model / Serial / Lot Alfonzo Arthrodesis Nail, Left Implanted:Qty: 1 on 06/10/2012 at [place] [facility] [place] - Non Human Left: Leg Upper ALFONZO 04/01/2016 [id number] S / / [id number] Screw Locking 1896-5035s - [id number] Implanted:Qty: 1 on 06/10/2012 at [place] [facility] Left: Leg Upper ALFONZO : TRAUMA 08/29/2013 [id number] S / / [id number] Screw Locking 1896-5030s - [id number] Implanted:Qty: 1 on 06/10/2012 at [place] [facility] ALFONZO : TRAUMA 04/29/2013 [id number] S / / [id number] Screw Threaded Lckg 5x42.5mm - [id number] Implanted:05/31 (Quantity not on file) Left: Leg Upper ALFONZO : OR[employer] 12/31/2015 [id number] S / / [id number] Screw Locking 1896-5040s - [id number] Implanted:Qty: 1 on 06/10/2012 at [place] [facility] Left: Leg Upper ALFONZO : TRAUMA 07/30/2014 [id number] S / / [id number] Screw Compression 1825-0000s - [id number] Implanted:Qty: 1 on 06/10/2012 at [place] [facility] Left: Leg Upper ALFONZO : TRAUMA 12/30/2012 [id number] S / / [id number] Screw Shaft 189-5045s - [id number] Implanted:Qty: 1 on 06/10/2012 at [place] [facility] Left: Leg Upper ALFONZO : ORTHOPAEDICS 12/31/2015 [id number] S / / [id number] Mesh Vicryl 12 X 12 Vkm-L - [id number] Implanted:Qty: 1 on 04/25/2020 by Dejuan Kaufman MD at [place] [facility] N/A: Abdomen JNJ : [employer] 04/29/2024 VKM-L / / [id number] Mesh Soft [id number] - [id number] Implanted:Qty: 1 on 04/25/2020 by Dejuan Kaufman MD at [place] [facility] N/A: Abdomen CR BARD : DAVOL [id number] 07/27/2024 [id number] / / [id number] documented as of this encounter Advance Directives * Full Code (Latest Code Status on File) Date Activated Date Inactivated Comments 04/24/2020 5:21 PM 04/30/2020 5:25 PM Question Answer Comments Discussion of Advance Directives occurred with: Not Discussed Does the patient have a Living Will? No Does the patient have Health Care Power of Attor dajuan? No * Full Code Date Activated Date Inactivated Comments 2019 9:38 PM 11/15/2019 6:40 PM This order re flects the patients wishes and were consensually agreed upon. * Full Code Date Activated Date Inactivated Comments 06/10/2012 1:34 PM 06/12/2012 3:09 PM . Question Answer Comments Discussion of Advance Directives occurred with: Not Discussed Care Teams Supervisor Display Fabrication Relationship Specialty Start Date End Date Shazia Bee MD [address] [place] [address] [place] [phone] PCP - General Family Medicine 10/30/23 documented as of this encounter
--- OUTSIDE RECORDS SUMMARY | 2024-04-01 20:44 | External Medical Summary | Summary of Care ---
Author Name Unknown Organization [facility] Address [address] [place] [address] Phone [phone] Care Team Providers Care Towel Sewer Name Role Phone Shazia Bee MD Primary Care Provide r Encounter Details Date Type Department Care Team (Late st Contact Info) Description 03/16/2024 Refill Endocrinology, [place] [address] [place] [address] Annetta Menjivar M, [facility] [address] [facility] [place] [address] Obesity (BMI 30-39.9) Allergies No known active allergiesdocumented as of this encounter (statuses as of 03/17/2024) Medications BLOOD PRESSURE CUFF MISCIndications:Fa ll for home BP monitoring 1 Kit 1 03/16/19 14 Active FOLIC ACID 800 MCG PO TABS Take 1 Tablet by mouth in the morning. 11/08/19 14 Active CYANOCOBALAMIN (VITAMIN B-12) 100 MCG Tablet Take 1 Tablet by mouth in the morning. Active calcium-vit D 500mg-200 units per tab 500-200 MG-UNIT per tablet Take 2 Tablets by mouth every morning. 10/20/19 20 Active Iron 325 (65 Fe) MG Oral Tablet Take 1 Tablet by mouth at bedtime. Active Magnesium 500 MG Oral Tablet Take 1 Tablet by mouth in the morning. Active Pramoxine HCl 1 % External LotionIndications: Cutaneous lupus erythematosus Apply to back twice daily as needed (please provide lotion wand, pt lives alone) 222 mL 2 12/13/19 22 Active Aspirin EC 81 MG Oral Tablet Delayed Release Take 1 Tablet by mouth in the morning. Active hydrOXYzine HCl 25 MG Oral Tablet TAKE ONE TABLET BY MOUTH IN THE MORNING, at noon, in the evening, and before bedtime if needed for itching or anxiety 40 Tablet 02/26/20 22 Active traZODone HCl 100 MG Oral Tablet (Desyrel)Indicatio ns:Other insomnia Take 2 tablets for the first week and then reduce to just 1 tablet at bedtime. 30 Tablet 5 03/18/19 23 Active Additional Information Patient taking differently: 200 mg Oral HS, Take 2 tablets for the first week and then reduce to just 1 tablet at bedtime., Reported on 03/07/2024 Mirtazapine 7.5 MG Oral Tablet (Remeron) Take 1 Tablet by mouth at bedtime. 04/14/19 23 Active Ondansetron 4 MG Oral Tablet Disintegrating Place 1 Tablet on tongue every 8 hours as needed for Nausea or Vomiting. dissolve on tongue. 30 Tablet 5 05/07/19 23 Active Midodrine HCl 10 MG Oral Tablet (Proamatine)Indica tions:Orthostatic hypotension,Hypote nsion, unspecified hypotension type Take one tablet shortly before or upon rising in the morning, midday, and late afternoon (not later than 6 PM) 270 Tablet 3 05/19/19 24 Active Potassium Chloride ER 10 MEQ Oral Capsule Extended ReleaseIndications :Hypokalemia Take 1 Capsule by mouth in the morning and 1 Capsule before bedtime. 180 Capsule 1 06/18/19 24 Active Hydroxychloroquine Sulfate 200 MG Oral Tablet (Plaquenil)Indicat ions:Cutaneous lupus erythematosus 2 tablets each evening 180 Tablet 1 08/19/19 24 Active Trulance 3 MG Oral Tablet (Plecanatide) Take 3 mg by mouth daily. 30 Tablet 3 11/23/19 24 Active Atorvastatin Calcium 40 MG Oral Tablet (Lipitor) TAKE ONE TABLET BY MOUTH IN THE MORNING 90 Tablet 2 01/04/20 24 Active Furosemide 40 MG Oral Tablet (Lasix)Indications :Bilateral lower extremity edema TAKE ONE TABLET BY MOUTH DAILY NEEDED for swelling 90 Tablet 2 01/04/20 24 Active Pantoprazole Sodium 40 MG Oral Tablet Delayed Release (Protonix)Indicati ons:Nausea and vomiting, unspecified vomiting type Take 1 Tablet by mouth in the morning and 1 Tablet before bedtime. Do not crush, split or chew the tablet. 60 Tablet 5 01/18/20 24 Active DULoxetine HCl 60 MG Oral Capsule Delayed Release Particles (Cymbalta) 12/26/19 24 Active Gabapentin 400 MG Oral Capsule (Neurontin)Indicat ions:Spinal stenosis of lumbar region with neurogenic claudication Take 1 Capsule by mouth in the morning and 1 Capsule at noon and 1 Capsule before bedtime. 270 Capsule 3 01/25/20 24 Active Meloxicam 7.5 MG Oral Tablet (Mobic)Indications :Degeneration of intervertebral disc of lumbar region with discogenic back pain and lower extremity pain,DDD (degenerative disc disease), cervical Take 1 Tablet by mouth in the morning and 1 Tablet before bedtime. for pain.. 180 Tablet 3 01/25/20 24 Active rOPINIRole HCl 2 MG Oral Tablet (Requip)Indication s:RLS (restless legs syndrome) TAKE ONE TABLET BY MOUTH ONCE DAILY IN THE EVENING 90 Tablet 1 01/29/20 24 Active Hydrocortisone 5 MG Oral Tablet (Cortef)Indication s:History of adrenal insufficiency 2 tab in the morning, and 1 tab around 2 pm, triple dose during illness, MDD 9 tabs 270 Tablet 3 01/29/20 24 Active Sucralfate 1 GM Oral Tablet (Carafate) TAKE ONE TABLET BY MOUTH AT BEDTIME. may also take up to 4 times daily if needed for nausea, epigastric pain 360 Tablet 1 02/25/20 24 Active Additional Information Patient taking differently: CAN TAKE UP TO 4 TIMES A DAY NEEDED, AND AT BEDTIME, Reported on 03/07/2024 Baclofen 20 MG Oral TabletIndications: Lumbar degenerative disc disease TAKE ONE TABLET BY MOUTH IN THE MORNING, at noon, and before bedtime if needed for muscle spasms 90 Tablet 03/03/19 25 Active Betamethasone Dipropionate 0.05 % External Cream (Diprosone) Apply topically to affected area 2 times a day. To affected area. Maximum 2 weeks at a time 45 g 3 03/07/19 25 Active Wegovy 0.5 MG/0.5ML Subcutaneous Solution Auto-injector (Semaglutide-Weigh t Management)Indicat ions:Obesity (BMI 30-39.9) Inject 0.5 mg under the skin once a week. 2 mL 1 03/17/19 25 Active Wegovy 0.5 MG/0.5ML Subcutaneous Solution Auto-injector (Semaglutide-Weigh t Management)Indicat ions:Obesity (BMI 30-39.9) Inject 0.5 mg under the skin once a week. 2 mL 5 1:47 PM EST 01/20/20 24 025 Discontin ued(Refil l) documented as of this encounter (statuses as of 03/17/2024) Active Problems Problem Noted Date Diagnosed Date Chronic kidney disease, stage 3a 02/08/2024 Overview: Per CKD protocol GERD (gastroesophageal reflux disease) 4 Food insecurity 11/09/2023 Overview: Per [employer] [...] as of this encounter (statuses as of 03/17/2024) Resolved Problems Problem Noted Date Diagnosed Date [...] Dr. Shima De Jesus CRC- Keri Zaman ([phone]) [facility]- Cate Trinidad ([phone]) [facility]- Julia Villafana ([phone]) Diagnosis changed due to Research Module. Go to Snapshot for study details. Anxiety 04/26/2015 11/20/2016 Recurrent major depressive disorder 04/14/2014 06/21/2019 Adrenal insufficiency 12/12/20132016 [employer]CE TJR RESEARCH OTHER*[id number] 11/02/2013 03/19/2016 Overview (03/19/2016): Patient has completed [...] as of this encounter (statuses as of 03/17/2024) Immunizations Name Administration Dates Next Due Hepatitis B, 20+ yrs 03/07/2024 Pneumococcal Conjugate Vacci ne, 20-valent ([id number]) 11/15/2021 Pneumococcal Polysaccharide PPV23 (Pneumovax) 06/26/2008 Seasonal [...] of Assessment Author No 04/24/2020 5:38 PM EST Alexis Florez RN documented as of this encounter Mental Status * Because of a physical, mental, or emotional condition, do you have serious difficulty concentrating, remembering, or making decisions? (5 years old or older) Answer Entry Date Author No 04/24/2020 5:38 PM EST Alexis Florez RN documented in this encounter Miscellaneous Notes * Telephone Encounter - Tiara Gautam PA-C - 03/17/2024 2:20 PM EST Signed Prescriptions: Disp Refills Wegovy 0.5 MG/0.5ML Subcutaneous Solution *2 mL 1 Sig: Inject 0.5 mg under the skin once a week.Authorizing Provider: TIARA GAUTAM * Telephone Encounter - Annetta Menjivar RPh - 03/16/2024 2:54 PM EST Good afternoon, Patient doing well on Wegovy. Last dispensed 03/03/24 for a 28 days supply with 0 refills remaining. Please sign pended rx if agreeable to continue. Thanks! Annetta Menjivar RPh, Pharm.D., CACP Clinical Pharmacist [facility] documented in this encounter Plan of Treatment Upcoming Encounters Date Type Department Care Team (Late st Contact Info) Description 04/27/2024 1:40 PM EST Office Visit Family Medicine [address] [place] [phone] Arlet Groves MD [address] [place] [address] [place] [phone] 05/24/2024 9:00 AM EDT Office Visit Cardiology [address] [place] [address] Quinn Uriostegui, PAOpalC [address] [place] [address] 06/20/2024 8:40 AM EDT Office Visit Neurology [facility] [address] [facility] [place] [address] Cesar Palma MD [address] [place] [address] 10/18/2024 12:30 PM EDT Imaging Radiology [address] [place] [address] 01/30/2025 1:20 PM EST Office Visit Rheumatology [facility] [address] [place] [phone] Isidro Phillips MD [facility] [place] [address] 03/15/2025 3:40 PM EST Office Visit Dermatology [address] [place] [address] Zonia Jordan PA-C [address] [place] [address] [place] [address] Health Maintenance Due Date Last Done Comments COVID-19 Vaccine (#1) 1970 Fecal Occult Blood Test 2010 Sigmoidoscopy 2010 CKD PHOS USE SMARTSET 88293 04/30/2021 03/0 03/2020, 04/29/2020, 04/28/2020, Additional history exists Cologuard 06/02/2021 06/02/2018 Hepatitis B Vaccine (2 of 3 - 19+ 3-dose series) 04/04/2024 03/07/2024 GFR 07/19/2024 01/20/2024, 08/01, 06/22/2023, Additional history exists Mammogram 10/14/2024 10/15/2023, 10/01, 08/30/2021, Additional history exists CKD HGB USE SMARTSET 32904 12/27/202412/27, 08/21/2023, 06/22/2023, Additional history exists Albumin/Creatinine Ratio 01/19/2025 01/20/2024 DISCUSS TOBACCO CESSATION (REFER TO SMARTSET #3291) 01/24/2025 01/25/2024 (Discussed) Depression Monitoring 01/24/2025 01/25/2024 [...] this encounter Medical Devices Implanted Type Area Tractor Trailer Truck Driver Device Identifier Shelf Expiration Date Model / Serial / Lot [place] Arthrodesis Nail, Left Implanted:Qty: 1 on 06/10/2012 at OR [facility] [place] Tissue - Non Human Left: Leg Upper ALFONZO 04/01/2016 2220-0259 S / / [id number] Screw Locking 1896-5035s - [id number] Implanted:Qty: 1 on 06/10/2012 at OR [facility] [place] Left: Leg Upper ALFONZO : TRAUMA 08/29/2013 [id number] S / / [id number] Screw Locking 1896-5030s - [id number] Implanted:Qty: 1 on 06/10/2012 at OR [facility] [place] ALFONZO : TRAUMA 04/29/2013 [id number] S / / [id number] Screw Threaded Lckg 5x42.5mm - [id number] Implanted:05/31 (Quantity not on file) Left: Leg Upper ALFONZO : ORTHOPAEDICS 12/31/2015 2036-8480 S / / [id number] Screw Locking 1896-5040s - [id number] Implanted:Qty: 1 on 06/10/2012 at OR [facility] [place] Left: Leg Upper ALFONZO : TRAUMA 07/30/2014 [id number] S / / [id number] Screw Compression 1825-0000s - [id number] Implanted:Qty: 1 on 06/10/2012 at OR [facility] [place] Left: Leg Upper ALFONZO : TRAUMA 12/30/2012 8635-2078 S / / [id number] Screw Shaft 1891-5045s - [id number] Implanted:Qty: 1 on 06/10/2012 at OR [facility] [place] Left: Leg Upper ALFONZO : ORTHOPAEDICS 12/31/2015 5968-2137 S / / [id number] Mesh Vicryl 12 X 12 Vkm-L - [id number] Implanted:Qty: 1 on 04/25/2020 by Dejuan Kaufman MD at OR [facility] [place] N/A: Abdomen JNJ : [employer] 04/29/2024 VKM-L / / [id number] Mesh Soft [id number] - [id number] Implanted:Qty: 1 on 04/25/2020 by Dejuan Kaufman MD at OR [facility] [place] N/A: Abdomen CR BARD : DAVOL [id number] 07/27/2024 [id number] / / [id number] documented as of this encounter Visit Diagnoses Diagnosis Obesity (BMI 30-39.9) Obesity, unspecified documented in this encounter Advance Directives * Full Code [...] Directives occurred with: Not Discussed Care Teams Towel Sewer Relationship Specialty Start Date End Date Shazia Bee MD [address] [place] [address] [place] [phone] PCP - General Family Medicine 10/30/23 documented as of this encounter
--- OUTSIDE RECORDS SUMMARY | 2024-04-01 20:44 | External Medical Summary | Summary of Care ---
Author Name Unknown Organization [facility] Address [address] [facility] [address] Phone [phone] Care Team Providers Care Egg Producer Name Role Phone Sahzia Bee MD Primary Care Provide r Reason for Visit * Reason Onset Date Comments Precert Approved 03/30/2024 Trulance Encounter Details Date Type Department Care Team (Late st Contact Info) Description 03/30/2024 Telephone Gastroenterology, [facility] [address] [place] [address] Sheryl Low CRNP [address] [facility] [place] [address] Precert Approved (Trulance) Allergies No known active allergiesdocumented as of this encounter (statuses as of 03/31/2024) Medications BLOOD PRESSURE CUFF MISCIndications:Fa ll for [...] PM) 270 Tablet 3 05/19/19 24 Active Atorvastatin Calcium 40 MG Oral [...] Management)Indicat ions:Obesity (BMI 30-39.9) Inject 0.5 mg (1 pen) under the skin once a week. 2 mL 1 03/30/2024 2:38 PM EST 03/17/19 25 Active Trulance 3 MG Oral Tablet (Plecanatide) TAKE ONE TABLET BY MOUTH EVERY DAY 30 Tablet 03/28/19 25 Active Potassium Chloride ER 10 MEQ Oral Capsule Extended ReleaseIndications :Hypokalemia Take 1 Capsule by mouth in the morning and 1 Capsule before bedtime. 180 Capsule 1 03/29/19 25 Active Hydroxychloroquine Sulfate 200 MG Oral Tablet (Plaquenil)Indicat ions:Cutaneous lupus erythematosus 2 tablets each evening 180 Tablet 1 03/29/19 25 Active documented as of this encounter (statuses as of 03/31/2024) Active Problems Problem Noted Date Diagnosed Date Irritable bowel syndrome with constipation 03/30 Chronic kidney disease, stage 3a 02/08/2024 Overview: [...] as of this encounter (statuses as of 03/31/2024) Resolved Problems Problem Noted Date Diagnosed Date [...] Dr. Shima De Jesus [facility]- Keri Zaman ([phone]) [facility] CRC- Cate Trinidad ([phone]) [facility] Quinonez CRC- Julia Villafana ([phone]) Diagnosis changed due to Research Module. Go to Snapshot for study details. Anxiety 04/26/2015 11/20/2016 Recurrent major depressive disorder 04/14/2014 06/21/2019 Adrenal insufficiency 12/12/20132016 [employer] LILIAR RESEARCH OTHER*[id number] 11/02/2013 03/19/2016 Overview (03/19/2016): Patient has completed [...] as of this encounter (statuses as of 03/31/2024) Immunizations Name Administration Dates Next Due Hepatitis B, 20+ yrs 03/07/2024 Pneumococcal Conjugate Vacci ne, 20-valent (Upardcs55) 11/15/2021 Pneumococcal Polysaccharide PPV23 (Pneumovax) 06/26/2008 Seasonal Influenza Vac., MDV , IM, 0.5 mL (Fluzone) 12/01/2013,12/06/2012,11/18/2011,12/06,12/03/2009,12/26/2008,12/27/2007 ,01/08/2007,12/09/2005,01/02/2005,12/31 Seasonal Influenza, PF, 6 M & above, [...] 10/23/2023 Transportation Needs Answer Date Record ed Do you have trouble getting a ride to medical visits or work? (Adult - for ages 18 years and over) Not on file 10/23/2023 Does your family have a hard [...] place to sleep at night? No 10/23/2023 Do you think you are at risk of becoming homeless? (Adult - for ages 18 years and over) Not on file 10/23/2023 Does your family worry about paying [...] Entry Date Author No 04/24/2020 5:38 PM Alexis Tran RN documented in this encounter Miscellaneous Notes * Telephone Encounter - Marissa Rosario CMA - 03/31/2024 11:34 AM EST Type Date User Summary Attachment Precert 03/31/2024 10:40 AM Mey Perez OSA Please see scanned fax from insurance under the Media Tab. - Note: Please see scanned fax from insurance under the Media Tab. Approved/Denied: approved Drug Name and Formulation: Trulance 3 MG Oral Tablet (Plecanatide) TAKE ONE TABLET BY MOUTH EVERY DAY How Prescribed(directions/sig): Trulance 3 MG Oral Tablet (Plecanatide) TAKE ONE TABLET BY MOUTH EVERY DAY Qty and Day Supply: 30 Did you receive insurance information from outside the chart? No, received insurance information within the chart Valid auth start date: 03/02/2024 Valid auth end date: 03/31/2025 Rx Insurance Info: omi [place] Reference #: Mey Perez Medication Data Processing Control Clerk III [facility] ([facility]) P: [phone] F: [phone] 03/31/24,10:39 AM . Type Date User Summary Attachment Precert 03/31/2024 6:15 AM Mey Perez OSA [facility] Authorization Submission - Note: [facility] Authorization Submission Submission Information: Medication: Trulance 3 MG Oral Tablet (Plecanatide) TAKE ONE TABLET BY MOUTH EVERY DAY Portal used: [facility] Insurance: OMI Authorization #/Ray: [id number] * Telephone Encounter - Lashawn Armstrong LPN - 03/30/2024 1:36 PM EST Gastro Pre-Cert Request Specialty Medication: No. Medication/Disease State Information: Medication: Trulance 3 MG Oral Tablet (Plecanatide) TAKE ONE TABLET BY MOUTH EVERY DAY Diagnosis (including ICD-10): Irritable bowel syndrome with constipation [K58.1] Site of care: Self-administered - route pre-cert request to [id number] Office Information: Prescriber: RAJWINDER Celeste documented in this encounter Plan of Treatment Upcoming Encounters Date Type Department Care Team (Late st Contact Info) Description 04/27/2024 1:40 PM EST Office Visit Family Medicine [address] [place] [phone] Arlet Groves MD [address] [place] [address] [place] [phone] 05/24/2024 9:00 AM EDT Office Visit Cardiology [address] [place] [address] Quinn Uriostegui, PA-C [address] [place] [address] 06/20/2024 8:40 AM EDT Office Visit Neurology [facility] [address] [facility] [place] [address] Cesar Palma MD [address], [place] [phone] 10/18/2024 12:30 PM EDT Imaging Radiology [address] [place] [address] 01/30/2025 1:20 PM EST Office Visit Rheumatology [facility] [address] [place] [phone] Isidro Phillips MD [address] [facility] [place] [address] 03/15/2025 3:40 PM EST Office Visit Dermatology [address] [place] [address] Zonia Jordan PA-C [address] [place] [address] [place] [address] Health Maintenance Due Date Last Done Comments COVID-19 Vaccine (#1) 1970 Fecal Occult Blood Test 2010 Sigmoidoscopy 2010 CKD PHOS USE SMARTSET 57373 04/30/2021 03/0 03/2020, 04/29/2020, 04/28/2020, Additional history exists Cologuard 06/02/2021 06/02/2018 Hepatitis B Vaccine (2 of 3 - 19+ 3-dose series) 04/04/2024 03/07/2024 GFR 07/19/2024 01/20/2024, 08/01, 06/22/2023, Additional history exists Mammogram 10/14/2024 10/15/2023, 10/01, 08/30/2021, Additional history exists Albumin/Creatinine Ratio 01/19/2025 01/20/2024 DISCUSS TOBACCO CESSATION (REFER TO SMARTSET #1346) 01/24/2025 01/25/2024 (Discussed) Depression Monitoring 01/24/2025 01/25/2024 CKD HGB USE SMARTSET 48207 03/30/202503/30, 03/30/2024, 12/28/2023, Additional history exists Diabetes Screening 01/19/2027 01/20/2024, 0 08/21/2023, 06/22/2023, [...] this encounter Medical Devices Implanted Type Area Roll Mill Operator Device Identifier Shelf Expiration Date Model / Serial / Lot Alfonzo Arthrodesis Nail, Left Implanted:Qty: 1 on 06/10/2012 at OR [facility] [place] Tissue - Non Human Left: Leg Upper ALFONZO 04/01/2016 1488-9973 S / / [id number] Screw Locking 1896-5035s - [id number] Implanted:Qty: 1 on 06/10/2012 at OR [facility] [place] Left: Leg Upper ALFONZO : TRAUMA 08/29/2013 0342-6648 S / / [id number] Screw Locking 1896-5030s - [id number] Implanted:Qty: 1 on 06/10/2012 at OR [facility] [place] ALFONZO : TRAUMA 04/29/2013 8982-0801 S / / [id number] Screw Threaded Lckg 5x42.5mm - [id number] Implanted:05/31 (Quantity not on file) Left: Leg Upper ALFONZO : ORTHOPAEDICS 12/31/2015 3108-0415 S / / [id number] Screw Locking 1896-5040s - [id number] Implanted:Qty: 1 on 06/10/2012 at OR [facility] [place] Left: Leg Upper ALFONZO : TRAUMA 07/30/2014 0844-4426 S / / [id number] Screw Compression 1825-0000s - [id number] Implanted:Qty: 1 on 06/10/2012 at [facility] Left: Leg Upper ALFONZO : TRAUMA 12/30/2012 7833-9082 S / / [id number] Screw Shaft 1891-5045s - [id number] Implanted:Qty: 1 on 06/10/2012 at OR [facility] [place] Left: Leg Upper ALFONZO : ORTHOPAEDICS 12/31/2015 9369-3894 S / / [id number] Mesh Vicryl 12 X 12 Vkm-L - [id number] Implanted:Qty: 1 on 04/25/2020 by Dejuan Kaufman MD at OR [facility] [place] N/A: Abdomen JNJ : [employer] 04/29/2024 VKM-L / / [id number] Mesh Soft [id number] - [id number] Implanted:Qty: 1 on 04/25/2020 by Dejuan Kaufman MD at OR [facility] [place] N/A: Abdomen CR BARD : DAVOL [id number] 07/27/2024 [id number] / / [id number] documented as of this encounter Visit Diagnoses Diagnosis Irritable bowel syndrome with constipation- Primary Irritable bowel syndrome documented in this encounter Advance Directives * [...] Directives occurred with: Not Discussed Care Teams Egg Producer Relationship Specialty Start Date End Date Shazia Bee MD [address] [place] [address] [place] [phone] PCP - General Family Medicine 10/30/23 documented as of this encounter
--- OUTSIDE RECORDS SUMMARY | 2024-04-01 20:44 | External Medical Summary ---
Author Name Unknown Address Unknown Organization K01:[facility] [address] [facility] [address] Laboratory Report Ordering Provider Test Date Status CARMEN DURAN 03/30/2024 11:59:22 Final Observation Date Value Abnormality Reference (Units ) Status WBC, Total 03/30/2024 11:59:22 7.26 4.00-10.80 (K/uL) Final RBC 03/30/2024 11:59:22 5.58 3.85-5.15 (M/uL) Final Hemoglobin 03/30/2024 11:59:22 16.3 Above high normal 12.0-15.3 (g/dL) Final HCT 03/30/2024 11:59:22 49.3 Above high normal 36.0-45.2 (%) Final MCV 03/30/2024 11:59:22 88.4 81.5-97.5 (fL) Final MCH 03/30/2024 11:59:22 29.2 27.0-34.0 (pg) Final MCHC 03/30/2024 11:59:22 33.1 32.0-36.0 (g/dL) Final RDW 03/30/2024 11:59:22 14.6 11.5-15.5 (%) Final Platelets 03/30/2024 11:59:22 316 140-400 (K/uL) Final MPV 03/30/2024 11:59:22 10.5 6.6-11.1 (fL) Final Nucleated erythrocytes/100 leukocytes [Ratio] in Blood by Automated count 03/30/2024 11:59:22 0 <=0 (/100 WBCs) Final Performing Location [facility] [place] [address] [place] [address]
--- OUTSIDE RECORDS SUMMARY | 2024-04-01 20:44 | External Medical Summary ---
Author Name Unknown Address Unknown Organization K01:LABORATORY [facility] - [address] [place] [address] Laboratory Report Ordering Provider Test Date Status CARMEN DURAN 03/30/2024 11:59:22 Final Observation Date Value Abnormality Reference (Units ) Status [facility]DH 03/30/2024 11:59:22 194 <=250 (U/L ) Final Performing Location LABORATORY [facility] - [address] [place] [address]
--- OUTSIDE RECORDS SUMMARY | 2024-04-01 20:44 | External Medical Summary | Summary of Care ---
Author Name Unknown Organization [facility] Address [address] [facility] [address] Phone [phone] Care Team Providers Care Licensed Reactor Operator Name Role Phone Shazia Bee MD Primary Care Provide r Reason for Visit * Reason Onset Date Comments Precert In Process 03/30/2024 30 Mey Edwards verScript Trulanclisa Encounter Details Date Type Department Care Team (Late st Contact Info) Description 03/30/2024 Telephone Gastroenterology, [facility] [address] [place] [address] Sheryl Low CRNP [address] [place] [address] Precert In Process (30 Mey Jacobpt... Allergies No known active allergiesdocumented as of [...] twice daily as needed (please provide lotion wanzuleika, pt lives alone) 222 mL 2 12/13/19 [...] Dr. Shima De Jesus CRC- Keri Zaman ([phone]) [facility]- Cate Trinidad ([phone]) Tiffanie Keenans CRC- Julia Villafana ([phone]) Diagnosis changed due to Research Module. Go to Snapshot for study details. Anxiety 04/26/2015 11/20/2016 Recurrent major depressive disorder 04/14/2014 06/21/2019 Adrenal insufficiency 12/12/20132016 FORCE TJR RESEARCH OTHER*[id number] 11/02/2013 03/19/2016 Overview (03/19/2016): Patient has completed [...] yrs 03/07/2024 Pneumococcal Conjugate Vacci ne, 20-valent ([id number]) 11/15/2021 Pneumococcal Polysaccharide PPV23 (Pneumovax) 06/26/2008 Seasonal [...] of Assessment Author No 04/24/2020 5:38 PM Lisa Tran RN * Are you blind or do you have serious difficulty seeing, even when wearing glasses? Answer Date of Assessment Author No 04/24/2020 5:38 PM Lisa Tran RN * Do you have serious difficulty walking or climbing stairs? (5 years old or older) Answer Date of Assessment Author No 04/26/2020 12:17 PM Liliana Mas RN * Do you have difficulty dressing or bathing? (5 years old or older) Answer Date of Assessment Author No 04/24/2020 5:38 PM Lisa Tran RN * Because of a physical, mental, or emotional condition, do you have difficulty doing errands alone such as visiting a doctors office or shopping? (15 years old or older) Answer Date of Assessment Author No 04/24/2020 5:38 PM EST Lisa Florez RN documented as of this encounter Mental Status * Because of a physical, mental, or emotional condition, do you have serious difficulty concentrating, remembering, or making decisions? (5 years old or older) Answer Entry Date Author No 04/24/2020 5:38 PM EST Lisa Florez RN documented in this encounter Miscellaneous Notes * Telephone Encounter - Lashawn Armstrong LPN - 03/30/2024 1:36 PM EST Gastro Pre-Cert Request Specialty Medication: No. Medication/Disease State Information: Medication: Trulance 3 MG Oral Tablet (Plecanatide) TAKE ONE TABLET BY MOUTH EVERY DAY Diagnosis (including ICD-10): Irritable bowel syndrome with constipation [K58.1] Site of care: Self-administered - route pre-cert request to [facility] Office Information: Prescriber: RAJWINDER Celeste documented in this encounter Plan of Treatment Upcoming Encounters Date Type Department Care Team (Late st Contact Info) Description 04/27/2024 1:40 PM EST Office Visit Family Medicine [address] [place] [address] Arlet Groves MD [address] [place] [address] [place] [phone] 05/24/2024 9:00 AM EDT Office Visit Cardiology [address] [place] [address] Quinn Uriostegui PA-C [address] [place] [address] 06/20/2024 8:40 AM EDT Office Visit Neurology Nikki Villagran [place] [address] [facility] [place] [address] Cesar Palma MD [address] [facility] [place] [address] 10/18/2024 12:30 PM EDT Imaging Radiology [address] [place] [address] 01/30/2025 1:20 PM EST Office Visit Rheumatology [facility] [address] [place] [phone] Isidro Phillips MD [facility] [place] [address] 03/15/2025 3:40 PM EST Office Visit Dermatology [address] [place] [address] Zonia Jordan PA-C [address] [place] [address] [place] [address] Health Maintenance Due Date Last Done Comments COVID-19 Vaccine (#1) 1970 Fecal Occult Blood Test 2010 Sigmoidoscopy 2010 CKD PHOS USE SMARTSET 22207 04/30/2021 03/0 03/2020, 04/29/2020, 04/28/2020, Additional history exists Cologuard 06/02/2021 06/02/2018 Hepatitis B Vaccine (2 of 3 - 19+ 3-dose series) 04/04/2024 03/07/2024 GFR 07/19/2024 01/20/2024, 08/01, 06/22/2023, Additional history exists Mammogram 10/14/2024 10/15/2023, 10/01, 08/30/2021, Additional history exists Albumin/Creatinine Ratio 01/19/2025 01/20/2024 DISCUSS TOBACCO CESSATION (REFER TO SMARTSET #6352) 01/24/2025 01/25/2024 (Discussed) Depression Monitoring 01/24/2025 01/25/2024 CKD HGB USE SMARTSET 61427 03/30/202503/30, 03/30/2024, 12/28/2023, Additional history exists Diabetes [...] this encounter Medical Devices Implanted Type Area Commercial Hvac Service Technician Device Identifier Shelf Expiration Date Model / Serial / Lot Alfonzo Arthrodesis Nail, Left Im[place]ed:[place] [facility] [place] Human Left: Leg Upper ALFONZO 04/01/2016 [id number] S / / [id number] Screw Locking 1896-5035s - [id number] Implanted:Qty: 1 [place]10[place] [facility] [place]: Leg Upper ALFONZO : TRAUMA 08/29/2013 8967-3442 S / / [id number] Screw Locking 1896-5030s - [id number] Implanted:Qty: 1 on 06[place]10/2012 [place] [facility] [place]FONZO : TRAUMA 04/29/2013 4882-9664 S / / [id number] Screw Threaded Lckg 5x42.5mm - [id number] Implanted:05/31 (Quantity not on file) Left: Leg Upper ALFONZO : ORTHOPAEDICS 12/31/2015 3368-0293 S / / [id number] Screw Locking 1896-5040s - [id number] Implanted:Qty: 1 on 06/10/2012 [place] [facility] [place]: Leg Upper ALFONZO : TRAUMA 07/30/2014 2279-2364 S / / [id number] Screw Compression 1825-0000s - [id number] Implanted:Qty: 1 [place] 06/10/2012 [place] [facility] [place]: Leg Upper ALFONZO : TRAUMA 12/30/2012 1147-4303 S / / [id number] Screw Shaft 1891-5045s - [id number] Implanted:Qty: 1 on 06/10/2012 [place] [facility] [place]: Leg Upper ALFONZO : ORTHOPAEDICS 12/31/2015 4423-6991 S / / [id number] Mesh Vicryl 12 X 12 Vkm-L - [id number] Implanted:Qty: 1 on 04/25/2020 by Dejuan Kaufman [place] [facility] [place]/A: Abdomen JNJ : [employer] 04/29/2024 VKM-L / / [id number] Mesh Soft [id number] - [id number] Implanted:Qty: 1 on 04/25/2020 by Dejuan Kaufman [place] [facility] [place]/A: Abdomen CR BARD : DAVOL [id number] 07/27/2024 [id number] / / [id number] documented as of this encounter Visit Diagnoses [...] Directives occurred with: Not Discussed Care Teams Licensed Reactor Operator Relationship Specialty Start Date End Date Shazia Bee MD [address] [place] [address] [place] [address] PCP - General Family Medicine 10/30/23 documented as of this encounter
--- OUTSIDE RECORDS SUMMARY | 2024-04-01 20:44 | External Medical Summary ---
Author Name Unknown Address Unknown Organization K01:LABORATORY [facility] - [address] [place] [address] Laboratory Report Ordering Provider Test Date Status CARMEN DURAN 03/30/2024 11:59:22 Final Observation Date Value Abnormality Reference (Units ) Status SYNC LEUKOCYTES IN BLOOD BY AUTOMATED COUNT 03/30/2024 11:59:22 7.26 4.00-10.80 (K/uL) Final Segs 03/30/2024 11:59:22 57.9 40.0-75.0 (%) Final Lymphs % 03/30/2024 11:59:22 31.1 18.0-42.0 (%) Final Monos 03/30/2024 11:59:22 6.3 1.0-11.0 (%) Final Eosinophils 03/30/2024 11:59:22 3.0 0.0-6.0 (%) Final Basos 03/30/2024 11:59:22 1.4 0.0-2.0 (%) Final Immature Granulocyte, Percent 03/30/2024 11:59:22 0.3 0.0-2.0 (%) Final Absolute Segs 03/30/2024 11:59:22 4.20 1.80-7.70 (K/uL) Final Lymphs, absolute 03/30/2024 11:59:22 2.26 1.00-4.80 (K/ul) Final Monos, Abs 03/30/2024 11:59:22 0.46 0.00-1.10 (K/uL) Final Eos, Abs 03/30/2024 11:59:22 0.22 0.00-0.70 (K/uL) Final Basos, Abs 03/30/2024 11:59:22 0.10 0.00-0.20 (K/uL) Final Immature Granulocytes, Number 03/30/2024 11:59:22 0.02 0.00-0.20 (K/uL) Final Performing Location LABORATORY [facility] - [address] [facility] [address]
--- OUTSIDE RECORDS SUMMARY | 2024-04-01 20:44 | External Medical Summary | Summary of Care ---
Author Name Unknown Organization [facility] Address [address] [facility] [address] Phone [phone] Care Team Providers Care Bark Press Operator Name Role Phone Shazia Bee MD Primary Care Provide r Reason for Visit * Reason Onset Date Comments Precert Approved 03/30/2024 Trulance Encounter Details Date Type Department Care Team (Late st Contact Info) Description 03/30/2024 Telephone Gastroenterology, [facility] [address] [place] [address] Sheryl Low CRNP [address] [place] [address] Precert Approved (Trulance) Allergies No known active [...] Dr. Shima De Jesus CRC- Keri Zaman ([phone]) [facility] CRC- Cate Trinidad ([phone]) Tiffanie Quinonez CRC- Julia Villafana ([phone]) Diagnosis changed due to Research Module. Go to Snapshot for study details. Anxiety 04/26/2015 11/20/2016 Recurrent major depressive disorder 04/14/2014 06/21/2019 Adrenal insufficiency 12/12/20132016 FORCE LILIAR RESEARCH OTHER*[id number] 11/02/2013 03/19/2016 Overview (03/19/2016): Patient has completed [...] yrs 03/07/2024 Pneumococcal Conjugate Vacci ne, 20-valent ([id number]) 11/15/2021 Pneumococcal Polysaccharide PPV23 (Pneumovax) 06/26/2008 Seasonal [...] om[place] Reference #: Mey Perez Medication Tents Assembler III [facility] ([facility]) P: [phone] F: [phone] 03/31/24,10:39 AM . Type Date User Summary Attachment Precert 03/31/2024 6:15 AM Mey Perez OSA [facility] Authorization Submission - Note: [facility] Authorization Submission Submission Information: Medication: Trulance 3 MG Oral Tablet (Plecanatide) TAKE ONE TABLET BY MOUTH EVERY DAY Portal used: [facility] Insurance: OMI Authorization #/Ray: [id number] * Telephone Encounter - Lashawn Armstrong LPN - 03/30/2024 1:36 PM EST Gastro Pre-Cert Request Specialty Medication: No. Medication/Disease State Information: Medication: Trulance 3 MG Oral Tablet (Plecanatide) TAKE ONE TABLET BY MOUTH EVERY DAY Diagnosis (including ICD-10): Irritable bowel syndrome with constipation [K58.1] Site of care: Self-administered - route pre-cert request to [id number] Office Information: Prescriber: RAJWINDER Celeste documented in this encounter Plan of Treatment Upcoming Encounters Date Type Department Care Team (Late st Contact Info) Description 04/27/2024 1:40 PM EST Office Visit Family Medicine [address] [place] [phone] Arlet Groves MD [address] [place] [address] [place] [phone] 05/24/2024 9:00 AM EDT Office Visit Cardiology [address] [place] [address] Quinn Uriostegui, PA-C [address] [place] [address] 06/20/2024 8:40 AM EDT Office Visit Neurology [facility] [place] [address] [facility] [place] [address] Cesar Palma MD [address] [place], [place] [address] 10/18/2024 12:30 PM EDT Imaging Radiology [address] [place] [address] 01/30/2025 1:20 PM EST Office Visit Rheumatology [facility] [address] [place] [phone] Isidro Phillips MD [address] [facility] [place] [address] 03/15/2025 3:40 PM EST Office Visit Dermatology [address] [place] [address] Zonia Jordan PA-C [address] [place] [address] [place] [address] Health Maintenance Due Date Last Done Comments COVID-19 Vaccine (#1) 1970 Fecal Occult Blood Test 2010 Sigmoidoscopy 2010 CKD PHOS USE SMARTSET 45034 04/30/2021 03/0 03/2020, 04/29/2020, 04/28/2020, Additional history exists Cologuard 06/02/2021 06/02/2018 Hepatitis B Vaccine (2 of 3 - 19+ 3-dose series) 04/04/2024 03/07/2024 GFR 07/19/2024 01/20/2024, 08/01, 06/22/2023, Additional history exists Mammogram 10/14/2024 10/15/2023, 10/01, 08/30/2021, Additional history exists Albumin/Creatinine Ratio 01/19/2025 01/20/2024 DISCUSS TOBACCO CESSATION (REFER TO SMARTSET #6125) 01/24/2025 01/25/2024 (Discussed) Depression Monitoring 01/24/2025 01/25/2024 CKD HGB USE SMARTSET 74828 03/30/202503/30, 03/30/2024, 12/28/2023, Additional history exists Diabetes [...] this encounter Medical Devices Implanted Type Area Data Deliverables Manager Device Identifier Shelf Expiration Date Model / Serial / Lot Alfonzo Arthrodesis Nail, Left Implanted:Qty: 1 [place] [facility] [place] Human Left: Leg Upper ALFONZO 04/01/2016 5429-8245 S / / [id number] Screw Locking 1896-5035s - [id number] Implanted:Qty: 1 [place]10/2012 [place] [facility] [place]: Leg Upper ALFONZO : TRAUMA 08/29/2013 0837-5956 S / / [id number] Screw Locking 1896-5030s - [id number] Implanted:Qty: 1 on 06/10/2012 [place] [facility] [place]FONZO : TRAUMA 04/29/2013 2199-2794 S / / [id number] Screw Threaded Lckg 5x42.5mm - [id number] Implanted:05/31 (Quantity not on file) Left: Leg Upper ALFONZO : ORTHOPAEDICS 12/31/2015 3662-8326 S / / [id number] Screw Locking 1896-5040s - [id number] Implanted:Qty: 1 [place] 06[place]10/2012 [place] [facility] [place]: Leg Upper ALFONZO : TRAUMA 07/30/2014 2377-5922 S / / [id number] Screw Compression 1825-0000s - [id number] Implanted:Qty: 1 on 06/10/2012 at [facility] Left: Leg Upper ALFONZO : TRAUMA 12/30/2012 4884-4171 S / / [id number] Screw Shaft 1891-5045s - [id number] Implanted:Qty: 1 on 06/10/2012 [place] [facility] [place]: Leg Upper ALFONZO : ORTHOPAEDICS 12/31/2015 3248-1466 S / / [id number] Mesh Vicryl 12 X 12 Vkm-L - [id number] Implanted:Qty: 1 on 04/25/2020 by Dejuan [place]aufman [place] [facility] [place]A: Abdomen JNJ : [employer] 04/29/2024 VKM-L / / [id number] Mesh Soft [id number] - [id number] Implanted:Qty: 1 on 04/25/2020 by Dejuan Kaufman [place] [facility] [place]A: Abdomen CR BARD : DAVOL [id number] 07/27/2024 [id number] / / [id number] documented as of this encounter Visit Diagnoses [...] Directives occurred with: Not Discussed Care Teams Bark Press Operator Relationship Specialty Start Date End Date Shazia Bee MD [address] [place] [address] [place] [address] PCP - General Family Medicine 10/30/23 documented as of this encounter
--- OUTSIDE RECORDS SUMMARY | 2024-04-01 20:45 | External Medical Summary | Summary of Care ---
Author Name Unknown Organization [facility] Address [address] [facility] [place] [address] Phone [phone] Care Team Providers Care Strategy Manager Name Role Phone Shazia Bee MD Primary Care Provide r Reason for Visit * Reason Onset Date Comments Medication Refill 02/29/2024 Encounter Details Date Type Department Care Team (Late st Contact Info) Description 02/29/2024 Refill Family Medicine [address] [phone] Shazia Bee MD [address] [place], [place] [address] [address] Obesity (BMI 30-39.9) Allergies No known active allergiesdocumented as of this encounter (statuses as of 03/01/2024) Medications BLOOD PRESSURE CUFF MISCIndications:Fa ll for [...] just 1 tablet at bedtime., Reported on 02/09/2024 Mirtazapine 7.5 MG Oral Tablet (Remeron) Take [...] tablet. 60 Tablet 5 01/18/20 24 Active Wegovy 0.5 MG/0.5ML Subcutaneous Solution Auto-injector (Semaglutide-Weigh t Management)Indicat ions:Obesity (BMI 30-39.9) Inject 0.5 mg under the skin once a week. 2 mL 01/20/20 24 Active DULoxetine HCl 60 MG Oral [...] tabs 270 Tablet 3 01/29/20 24 Active Baclofen 20 MG Oral TabletIndications: Lumbar degenerative disc disease TAKE ONE TABLET BY MOUTH IN THE MORNING, at noon, and before bedtime if needed for muscle spasms 90 Tablet 02/03/20 24 Active Sucralfate 1 GM Oral Tablet (Carafate) TAKE ONE TABLET BY MOUTH AT BEDTIME. may also take up to 4 times daily if needed for nausea, epigastric pain 360 Tablet 1 02/25/20 24 Active documented as of this encounter (statuses as of 03/01/2024) Active Problems Problem Noted Date Diagnosed Date Chronic kidney disease, stage 3a 02/08/2024 Overview: Per CKD protocol Necrotizing fasciitis 01/25/2024 GERD (gastroesophageal reflux disease) Food insecurity 11/09/2023 [...] as of this encounter (statuses as of 03/01/2024) Resolved Problems Problem Noted Date Diagnosed Date Resolved Date Encounter for long-term (cur rent) use of [...] Dr. Shima De Jesus CRC- Keri Zaman ([phone]) [facility]- Cate Trinidad ([phone]) [facility] CRC- Julia Villafana ([phone]) Diagnosis changed due to Research Module. Go to Snapshot for study details. Anxiety 04/26/2015 11/20/2016 Recurrent major depressive disorder 04/14/2014 06/21/2019 Adrenal insufficiency 12/12/20132016 FORCE TJR RESEARCH OTHER*[id number] 11/02/2013 03/19/2016 Overview (03/19/2016): Patient has completed [...] as of this encounter (statuses as of 03/01/2024) Immunizations Name Administration Dates Next Due Pneumococcal Conjugate Vacci ne, 20-valent ([id number]) 11/15/2021 Pneumococcal Polysaccharide PPV23 (Pneumovax) 06/26/2008 Seasonal [...] encounter Miscellaneous Notes * Telephone Encounter - Shazia Bee MD - 03/01/2024 8:39 AM EST Refused Prescriptions: Disp Refills Wegovy 0.5 MG/0.5ML Subcutaneous Solution *2 mL 0 Sig: Inject 0.5 mg under the skin once a week. Refused By: SHAZIA BEE Reason for Refusal: Managed by another physician * Telephone Encounter - Rose Sparrow RN - 02/29/2024 3:33 PM ESTPending Prescriptions: Disp Refills Wegovy 0.5 MG/0.5ML Subcutaneous Solution *2 mL 0 Sig: Inject 0.5 mg under the skin once a week. * Telephone Encounter - Sarika Watson OSA - 02/29/2024 10:58 AM EST Did you pend patient's preferred pharmacy and medication before forwarding?yes Pharmacy: [id number] [address] [facility] Pending Prescriptions: Disp Refills Wegovy 0.5 MG/0.5ML Subcutaneous Solution*2 mL 0 Sig: Inject 0.5 mg under the skin once a week. Last Visit: 01/25/2024 (in office), Visit date not found (telemedicine) Next Visit: 04/27/2024 If no future appointments scheduled, and last appointment is greater than a year ago, please schedule patient for a follow-up appointment Last date the medication was ordered: 01.20.24 Is this request for a controlled substance?No [...] 1:40 PM EST Office Visit Family Medicine [address] [place] [phone] Arlet Groves MD [address] [place] [address] [place] [phone] 05/24/2024 9:00 AM EDT Office Visit Cardiology [address] [place] [address] Quinn Uriostegui PA-C [address] [place] [address] 06/20/2024 8:40 AM EDT Office Visit Neurology Nikki Villagran [place] 200 [facility] [place] [address] Cesar Palma MD [address] [place] [address] 10/18/2024 12:30 PM EDT Imaging Radiology [address] [place] [address] 01/30/2025 1:20 PM EST Office Visit Rheumatology [address] [place] [address] Isidro Phillips MD [address] [place] [address] [place] [address] Health Maintenance Due Date Last Done Comments COVID-19 Vaccine (#1) 1970 Albumin/Creatinine Ratio 11/04/1983 Hepatitis B Vaccine (1 of 3 - 19+ 3-dose series) 1984 Fecal Occult Blood Test 2010 Sigmoidoscopy 2010 CKD PHOS USE SMARTSET 06878 04/30/2021 03/0 03/2020, 04/29/2020, 04/28/2020, Additional history exists Cologuard 06/02/2021 06/02/2018 GFR 07/19/2024 01/20/2024, 08/01, 06/22/2023, Additional history exists Mammogram 10/14/2024 10/15/2023, 10/01, 08/30/2021, Additional history exists CKD HGB USE SMARTSET 87982 12/27/202412/27, 08/21/2023, 06/22/2023, Additional history exists DISCUSS TOBACCO CESSATION (REFER TO SMARTSET #3291) [...] this encounter Medical Devices Implanted Type Area Bilingual School Psychologist Device Identifier Shelf Expiration Date Model / Serial / Lot Alfonzo Arthrodesis Nail, Left Implanted:Qty: 1 on 06/10/2012 at [place] [facility] [place] Tissue - Non Human Left: Leg Upper ALFONZO 04/01/2016 4681-0738 S / / [id number] Screw Locking 1896-5035s - [id number] Implanted:Qty: 1 on 06/10/2012 at [place] [facility] [place] Left: Leg Upper ALFONZO : TRAUMA 08/29/2013 4568-4370 S / / [id number] Screw Locking 1896-5030s - [id number] Implanted:Qty: 1 on 06/10/2012 at [place] [facility] [place] ALFONZO : TRAUMA 04/29/2013 8828-7422 S / / [id number] Screw Threaded Lckg 5x42.5mm - [id number] Implanted:05/31 (Quantity not on file) Left: Leg Upper ALFONZO : ORTHOPAEDICS 12/31/2015 7992-8873 S / / [id number] Screw Locking 1896-5040s - [id number] Implanted:Qty: 1 on 06/10/2012 at OR [facility] [place] Left: Leg Upper ALFONZO : TRAUMA 07/30/2014 0305-4036 S / / [id number] Screw Compression 1825-0000s - [id number] Implanted:Qty: 1 on 06/10/2012 at OR [facility] [place] Left: Leg Upper ALFONZO : TRAUMA 12/30/2012 2413-8032 S / / [id number] Screw Shaft 1891-5045s - [id number] Implanted:Qty: 1 on 06/10/2012 at OR [facility] [place] Left: Leg Upper ALFONZO : ORTHOPAEDICS 12/31/2015 2879-6591 S / / [id number] Mesh Vicryl 12 X 12 Vkm-L - [id number] Implanted:Qty: 1 on 04/25/2020 by Dejuan Kaufman MD at OR [facility] [place] N/A: Abdomen JNJ : [employer] 04/29/2024 VKM-L / / [id number] Mesh Soft [id number] - [id number] Implanted:Qty: 1 on 04/25/2020 by Dejuan Kaufman MD at OR [facility] [place] N/A: Abdomen CR BARD : DAVOL [id number] 07/27/2024 [id number] / / [id number] documented as of this encounter Visit Diagnoses [...] Directives occurred with: Not Discussed Care Teams Strategy Manager Relationship Specialty Start Date End Date Shazia Bee MD [address] [place] [address] [place] [phone] PCP - General Family Medicine 10/30/23 documented as of this encounter
--- OUTSIDE RECORDS SUMMARY | 2024-04-01 20:45 | External Medical Summary | Summary of Care ---
Author Name Unknown Organization [facility] Address [address] [facility] [place] [address] Phone [phone] Care Team Providers Care Wood Tank Erector Name Role Phone Shazia Bee MD Primary Care Provide r Reason for Visit * Reason Comments Dosage Adjustment Via Phone (anticoag Cl inic) Encounter Details Date Type Department Care Team (Late st Contact Info) Description 03/16/2024 3:30 PM EST Telemedicine Endocrinology, [place] [address] [place] [address] Escobar, Pharmacist Endocrinology [address] [place] [address] Class 2 severe obesity due to excess calories with serious comorbidity and body mass index (BMI) of 35.0 to 35.9 in adult (HCC)* Allergies No known active allergiesdocumented as of this encounter (statuses as of 03/16/2024) Medications BLOOD PRESSURE CUFF MISCIndications:Fa ll for [...] the skin once a week. 2 mL 03/03/2024 1:47 PM EST 01/20/20 24 Active DULoxetine HCl 60 MG [...] time 45 g 3 03/07/19 25 Active documented as of this encounter (statuses as of 03/16/2024) Active Problems Problem Noted Date Diagnosed Date [...] as of this encounter (statuses as of 03/16/2024) Resolved Problems Problem Noted Date Diagnosed Date [...] Dr. Shima De Jesus CRC- Keri Zaman ([phone]) [facility] CRC- Cate Trinidad ([phone]) Tiffanie Keenans CRC- Julia Villafana ([phone]) Diagnosis changed due to Research Module. Go to Snapshot for study details. Anxiety 04/26/2015 11/20/2016 Recurrent major depressive disorder 04/14/2014 06/21/2019 Adrenal insufficiency 12/12/20132016 FORCE TJR RESEARCH OTHER*[id number] 11/02/2013 03/19/2016 Overview (03/19/2016): Patient has completed [...] as of this encounter (statuses as of 03/16/2024) Immunizations Name Administration Dates Next Due Hepatitis B, 20+ yrs 03/07/2024 Pneumococcal Conjugate Vacci ne, 20-valent ([id number]) 11/15/2021 Pneumococcal Polysaccharide PPV23 (Pneumovax) 06/26/2008 Seasonal [...] Alexis Florez RN documented in this encounter Progress Notes * Annetta Menjivar [facility] - 03/16/2024 2:57 PM EST I was present for visit and agree with the plan as outlined. Refill pended to provider. Annetta Menjivar [facility], Pharm.D., CACP Clinical Pharmacist Medication Therapy Management Clinic documented in this encounter Plan of Treatment Upcoming Encounters Date Type Department Care Team (Late st Contact Info) Description 04/27/2024 1:40 PM EST Office Visit Family Medicine [address] [phone] Arlet Groves MD [address] [place] [address] [place] [phone] 05/24/2024 9:00 AM EDT Office Visit Cardiology [address] [place] [address] Quinn Uriostegui, PAOpalC [address] [place] [address] 06/20/2024 8:40 AM EDT Office Visit Neurology [facility] [address] [place] [address] Cesar Palma MD [address] [place] [address] 10/18/2024 12:30 PM EDT Imaging Radiology [address] [place] [address] 01/30/2025 1:20 PM EST Office Visit Rheumatology [facility] [address] [place] [phone] Isidro Phillips MD [address] [place], [place] [address] 03/15/2025 3:40 PM EST Office Visit Dermatology [address] [place] [address] Zonia Jordan PA-C [address] [place] [address] [place] [address] Health Maintenance Due Date Last Done Comments COVID-19 Vaccine (#1) 1970 Fecal Occult Blood Test 2010 Sigmoidoscopy 2010 CKD PHOS USE SMARTSET 76311 04/30/2021 03/0 03/2020, 04/29/2020, 04/28/2020, Additional history exists Cologuard 06/02/2021 06/02/2018 Hepatitis B Vaccine (2 of 3 - 19+ 3-dose series) 04/04/2024 03/07/2024 GFR 07/19/2024 01/20/2024, 08/01, 06/22/2023, Additional history exists Mammogram 10/14/2024 10/15/2023, 10/01, 08/30/2021, Additional history exists CKD HGB USE SMARTSET 62888 12/27/202412/27, 08/21/2023, 06/22/2023, Additional history exists Albumin/Creatinine Ratio 01/19/2025 01/20/2024 DISCUSS TOBACCO CESSATION (REFER TO SMARTSET #3611) 01/24/2025 01/25/2024 (Discussed) Depression Monitoring 01/24/2025 01/25/2024 [...] this encounter Medical Devices Implanted Type Area Endbander Device Identifier Shelf Expiration Date Model / Serial / Lot [place] Arthrodesis Nail, Left Implanted:Qty: 1 on 06/10/2012 at [place] [facility] [place] Tissue - Non Human Left: Leg Upper ALFONZO 04/01/2016 [id number] S / / [id number] Screw Locking 1896-5035s - [id number] Implanted:Qty: 1 on 06/10/2012 at [place] [facility] [place] Left: Leg Upper ALFONZO : TRAUMA 08/29/2013 2033-7399 S / / [id number] Screw Locking 1896-5030s - [id number] Implanted:Qty: 1 on 06/10/2012 at [place] [facility] [place] ALFONZO : TRAUMA 04/29/2013 5304-7378 S / / [id number] Screw Threaded Lckg 5x42.5mm - [id number] Implanted:05/31 (Quantity not on file) Left: Leg Upper ALFONZO : ORTHOPAEDICS 12/31/2015 3178-7425 S / / [id number] Screw Locking 1896-5040s - [id number] Implanted:Qty: 1 on 06/10/2012 at [place] [facility] [place] Left: Leg Upper ALFONZO : TRAUMA 07/30/2014 5992-5720 S / / [id number] Screw Compression 1825-0000s - [id number] Implanted:Qty: 1 on 06/10/2012 at [place] [facility] [place] Left: Leg Upper ALFONZO : TRAUMA 12/30/2012 8119-4413 S / / [id number] Screw Shaft 189-5045s - [id number] Implanted:Qty: 1 on 06/10/2012 at [place] [facility] [place] Left: Leg Upper ALFONZO : ORTHOPAEDICS 12/31/2015 1369-5210 S / / [id number] Mesh Vicryl 12 X 12 Vkm-L - [id number] Implanted:Qty: 1 on 04/25/2020 by Dejuan Kaufman MD at [place] [facility] [place] N/A: Abdomen JNJ : [employer] 04/29/2024 VKM-L / / [id number] Mesh Soft [id number] - [id number] Implanted:Qty: 1 on 04/25/2020 by Dejuan Kaufman MD at [place] [facility] [place] N/A: Abdomen CR BARD : DAVOL [id number] 07/27/2024 [id number] / / [id number] documented as of this encounter Visit Diagnoses Diagnosis Class 2 severe obesity due to excess calories with serious comorbidity and body mass index (BMI) of 35.0 to 35.9 in adult (HCC)- Primary documented in this encounter Advance Directives * [...] Directives occurred with: Not Discussed Care Teams Wood Tank Erector Relationship Specialty Start Date End Date Shazia Bee MD [address] [place] [address] [place] [phone] PCP - General Family Medicine 10/30/23 documented as of this encounter
--- OUTSIDE RECORDS SUMMARY | 2024-04-01 20:45 | External Medical Summary | Summary of Care ---
Author Name Unknown Organization [facility] Address [address] [place] [address] Phone [phone] Care Team Providers Care Devops Developer Name Role Phone Shazia Bee MD Primary Care Provide r Reason for Visit * Reason Comments eRx-Medication Refill Encounter Details Date Type Department Care Team (Late st Contact Info) Description 03/13/2024 Refill Family Medicine [address] [phone] Kian Braswell MD [address] [place] [address] [place] [address] Spinal stenosis of lumbar region with neurogenic claudication Allergies No known active allergiesdocumented as of this encounter (statuses as of 03/14/2024) Medications BLOOD PRESSURE CUFF MISCIndications:Fa ll for [...] as of this encounter (statuses as of 03/14/2024) Active Problems Problem Noted Date Diagnosed Date [...] as of this encounter (statuses as of 03/14/2024) Resolved Problems Problem Noted Date Diagnosed Date [...] assay failure rates. Contacts: PI: Dr. Shima [facility] De Jesus CRC- Keri Zaman ([phone]) [facility] CRC- Cate Trinidad ([phone]) [facility] CRC- Julia Villafana ([phone]) Diagnosis changed due to Research Module. Go to Snapshot for study details. Anxiety 04/26/2015 11/20/2016 Recurrent major depressive disorder 04/14/2014 06/21/2019 Adrenal insufficiency 12/12/20132016 FORCE LILIAR RESEARCH OTHER*[id number] 11/02/2013 03/19/2016 Overview (03/19/2016): Patient has completed [...] as of this encounter (statuses as of 03/14/2024) Immunizations Name Administration Dates Next Due Hepatitis B, 20+ yrs 03/07/2024 Pneumococcal Conjugate Vacci ne, 20-valent (Ulspxhx26) 11/15/2021 Pneumococcal Polysaccharide PPV23 (Pneumovax) 06/26/2008 Seasonal [...] encounter Miscellaneous Notes * Telephone Encounter - Krystle Sparrow RN - 03/14/2024 10:11 AM ESTRefused Prescriptions: Disp Refills Gabapentin 600 MG Oral Tablet (Neurontin) 270 Ta*0 Sig: take 1tablet in the morning, 1 tablet at noon and 1 tablet before bedtimeRefused By: KRYSTLE SPARROW MReasonfor Refusal: Too soonReason for Refusal Comment: sent 01/25/24 with refills * Telephone Encounter - Lamin Neff - 03/13/2024 1:47 PM ESTPending Prescriptions: Disp Refills Gabapentin 600 MG Oral Tablet [Pharmacy Me*270 Ta*0 Sig: take 1tablet in the morning, 1 tablet at noon and 1 tablet before bedtime documented in this encounter Plan of Treatment Upcoming Encounters Date Type Department Care Team (Late st Contact Info) Description 04/27/2024 1:40 PM EST Office Visit Family Medicine [address] [place] [phone] Arlet Groves MD [address] [place] [address] [place] [phone] 05/24/2024 9:00 AM EDT Office Visit Cardiology [address] [place] [address] Quinn Uriostegui, PAOpalC [address] [place] [address] 06/20/2024 8:40 AM EDT Office Visit Neurology [facility] [address] [place] [address] Cesar Palma MD [address] [place], [place] [id number] 10/18/2024 12:30 PM EDT Imaging Radiology [address] [place] [address] 01/30/2025 1:20 PM EST Office Visit Rheumatology [facility] [address] [place] [phone] Isidro Phillips MD [facility] [place] [address] 03/15/2025 3:40 PM EST Office Visit Dermatology [address] [place] [address] Zonia Jordan PA-C [address] [place] [address] [place] [address] Health Maintenance Due Date Last Done Comments COVID-19 Vaccine (#1) 1970 Fecal Occult Blood Test 2010 Sigmoidoscopy 2010 CKD PHOS USE SMARTSET 97983 04/30/2021 03/0 03/2020, 04/29/2020, 04/28/2020, Additional history exists Cologuard 06/02/2021 06/02/2018 Hepatitis B Vaccine (2 of 3 - 19+ 3-dose series) 04/04/2024 03/07/2024 GFR 07/19/2024 01/20/2024, 08/01, 06/22/2023, Additional history exists Mammogram 10/14/2024 10/15/2023, 10/01, 08/30/2021, Additional history exists CKD HGB USE SMARTSET 59125 12/27/202412/27, 08/21/2023, 06/22/2023, Additional history exists Albumin/Creatinine Ratio 01/19/2025 01/20/2024 DISCUSS TOBACCO CESSATION (REFER TO SMARTSET #0855) 01/24/2025 01/25/2024 (Discussed) Depression Monitoring 01/24/2025 01/25/2024 [...] this encounter Medical Devices Implanted Type Area Barrel Bung Remover And Dumper Device Identifier Shelf Expiration Date Model / Serial / Lot Alfonzo Arthrodesis Nail, Left Implanted:Qty: 1 on 06/10[place]2012 [place] [facility] [place] - Non Human Left: Leg Upper ALFONZO 04/01/2016 0574-3644 S / / [id number] Screw Locking 1896-5035s - [id number] Implanted:Qty: 1 on 06/10/2012 [place] [facility] [place]: Leg Upper ALFONZO : TRAUMA 08/29/2013 1409-1764 S / / [id number] Screw Locking 1896-5030s - [id number] Implanted:Qty: 1 on 06/10/2012 [place] [facility] [place]FONZO : TRAUMA 04/29/2013 4319-6015 S / / [id number] Screw Threaded Lckg 5x42.5mm - [id number] Implanted:05/31 (Quantity not on file) Left: Leg Upper ALFONZO : ORTHOPAEDICS 12/31/2015 8721-7073 S / / [id number] Screw Locking 1896-5040s - [id number] Implanted:Qty: 1 on 06/10/2012 [place] [facility] [place]: Leg Upper ALFONZO : TRAUMA 07/30/2014 5432-3637 S / / [id number] Screw Compression 1825-0000s - [id number] Implanted:Qty: 1 on 06/10/2012 [place] [facility] [place]: Leg Upper ALFONZO : TRAUMA 12/30/2012 6899-3160 S / / [id number] Screw Shaft 1891-5045s - [id number] Implanted:Qty: 1 on 06/10/2012 [place] [facility] [place]: Leg Upper ALFONZO : ORTHOPAEDICS 12/31/2015 4252-8606 S / / [id number] Mesh Vicryl 12 X 12 Vkm-L - [id number] Implanted:Qty: 1 on 04/25/2020 by Dejuan Kaufman MD [place] [facility] [place]/A: Abdomen JNJ : [employer] 04/29/2024 VKM-L / / [id number] Mesh Soft [id number] - [id number] Implanted:Qty: 1 on 04/25/2020 by Dejuan Kaufman MD [place] [facility] [place]/A: Abdomen CR BARD : DAVOL [id number] 07/27/2024 [id number] / / [id number] documented as of this encounter Visit Diagnoses Diagnosis Spinal stenosis of lumbar region with neurogenic claudication Spinal stenosis, lumbar region, with neurogenic claudication documented in this encounter Advance Directives * [...] Directives occurred with: Not Discussed Care Teams Devops Developer Relationship Specialty Start Date End Date Shazia Bee MD [address] [place] [address] [place] [address] PCP - General Family Medicine 10/30/23 documented as of this encounter
--- OUTSIDE RECORDS SUMMARY | 2024-04-01 20:45 | External Medical Summary | Summary of Care ---
Author Name Unknown Organization [facility] Address [address] [facility] Phone [phone] Care Team Providers Care Skin Drier Name Role Phone Shazia Bee MD Primary Care Provide r Reason for Visit * Reason Comments Dosage Adjustment Via Phone (anticoag Cl inic) Encounter Details Date Type Department Care Team (Late st Contact Info) Description 03/16/2024 3:30 PM EST Telemedicine Endocrinology, [place] [address] [place] [address] Escobar, Pharmacist Endocrinology [address] [place] [address] Class 2 severe obesity due [...] Dr. Shima De Jesus CRC- Keri Zaman ([phone]) [facility] CRC- Cate Trinidad ([phone]) Tiff[facility] Keenans CRC- Julia Villafana ([phone]) Diagnosis changed due to Research Module. Go to Snapshot for study details. Anxiety 04/26/2015 11/20/2016 Recurrent major depressive disorder 04/14/2014 06/21/2019 Adrenal insufficiency 12/12/20132016 FORCE TJR RESEARCH OTHER*[id number] 11/02/2013 03/19/2016 Overview (03/19/2016): Patient has completed [...] yrs 03/07/2024 Pneumococcal Conjugate Vacci ne, 20-valent (Ukqvcli18) 11/15/2021 Pneumococcal Polysaccharide PPV23 (Pneumovax) 06/26/2008 Seasonal [...] Progress Notes * Annetta Menjivar [facility] - 03/16/2024 2:57 PM EST I was present for visit and agree with the plan as outlined. Refill pended to provider. Annetta Menjivar [facility], Pharm.D., CACP Clinical Pharmacist Medication Therapy Management Clinic * Terri Ramirez, PHARM Student - 03/16/2024 12:57 PM EST GLP-1 Medication Therapy Status Check After connecting to the patient via telephone, the patient was identified by name and date of . Patient was then informed that this was a telephone call only visit. The patient agreed to participate Visit Disposition: Status check Duration: 3:08 minutes Name: Tracy Benavides Diagnosis: Obesity Current GLP1 therapy: Wegovy 0.25mg weekly OBJECTIVE Estimated body mass index is 37.61 kg/m as calculated from the following: Height as of 03/07/24: 1.651 m (5' 5"). Weight as of 03/07/24: 102.5 kg (226 lb). BP Readings from Last 3 Encounters: 03/07/24 122/76 02/09/24 107/62 01/25/24 100/62 Hemoglobin AIC Results: Lab Results Component Value Date/Time HEMOGLOBIN A1C - [facility] 5.7 (H) 03/31/2023 01:35 PM HEMOGLOBIN A1C - [facility] 5.3 09/15/2022 01:12 PM HEMOGLOBIN A1C - [facility] 5.4 11/02/2013 12:36 PM No results found for: "MICROALBUMIN" MEDICATION USE ASSESSMENT Patient is adherent to current prescribed dose of GLP1 therapy? No, patient is not taking as prescribed. Unable to get medication in January due to shortage so went whole month without any doses. Back to prescribed dose as of first week of march Allergic / Local Reactions Reported: No Side Effects Reported: No side effects, tolerating well PLAN The patient was educated on when to contact provider with change of symptoms or tolerability to medication. Continue medication as prescribed. Terri Ramirez, PHARM Student Clinical Pharmacist Medication Therapy Disease Management 03/16/2024,12:57 PM documented in this encounter Plan of Treatment Upcoming Encounters Date Type Department Care Team (Late st Contact Info) Description 04/27/2024 1:40 PM EST Office Visit Family Medicine [address] [place] [phone] Arlet Groves MD [address] [place] [address] [place] [phone] 05/24/2024 9:00 AM EDT Office Visit Cardiology [address] [place] [address] Quinn Uriostegui PA-C [address] [place] [address] 06/20/2024 8:40 AM EDT Office Visit Neurology [facility] [address] [place] [address] Cesar Palma MD [address] [facility] [place] [phone] 10/18/2024 12:30 PM EDT Imaging Radiology [address] [place] [address] 01/30/2025 1:20 PM EST Office Visit Rheumatology [facility] [address] [place] [phone] Isidro Phillips MD [facility] [place] [address] 03/15/2025 3:40 PM EST Office Visit Dermatology [address] [place] [address] Zonia Jordan PA-C [address] [place] [address] [place] [phone] Health Maintenance Due Date Last Done Comments COVID-19 Vaccine (#1) 1970 Fecal Occult Blood Test 2010 Sigmoidoscopy 2010 CKD PHOS USE SMARTSET 92727 04/30/2021 03/0 03/2020, 04/29/2020, 04/28/2020, Additional history exists Cologuard 06/02/2021 06/02/2018 Hepatitis B Vaccine (2 of 3 - 19+ 3-dose series) 04/04/2024 03/07/2024 GFR 07/19/2024 01/20/2024, 08/01, 06/22/2023, Additional history exists Mammogram 10/14/2024 10/15/2023, 10/01, 08/30/2021, Additional history exists CKD HGB USE SMARTSET 06920 12/27/202412/27, 08/21/2023, 06/22/2023, Additional history exists Albumin/Creatinine Ratio 01/19/2025 01/20/2024 DISCUSS TOBACCO CESSATION (REFER TO SMARTSET #5318) 01/24/2025 01/25/2024 (Discussed) Depression Monitoring 01/24/2025 01/25/2024 [...] this encounter Medical Devices Implanted Type Area City Administrator Device Identifier Shelf Expiration Date Model / Serial / Lot Alfonzo Arthrodesis Nail, Left Implanted:Qty: 1 [place] [facility] [place] Human Left: Leg Upper ALFONZO 04/01/2016 2977-9074 S / / [id number] Screw Locking 1896-5035s - [id number] Implanted:Qty: 1 on 06/10/2012 [place] [facility] [place]: Leg Upper ALFONZO : TRAUMA 08/29/2013 6610-4972 S / / [id number] Screw Locking 1896-5030s - [id number] Implanted:Qty: 1 on 06/10/2012 at [facility] ALFONZO : TRAUMA 04/29/2013 6423-1857 S / / [id number] Screw Threaded Lckg 5x42.5mm - [id number] Implanted:05/31 (Quantity not on file) Left: Leg Upper ALFONZO : ORTHOPAEDICS 12/31/2015 6084-0960 S / / [id number] Screw Locking 1896-5040s - [id number] Implanted:Qty: 1 on 06/10/2012 [place] [facility] [place]: Leg Upper ALFNOZO : TRAUMA 07/30/2014 6168-4428 S / / [id number] Screw Compression 1825-0000s - [id number] Implanted:Qty: 1 on 06/10/2012 at [facility] Left: Leg Upper ALFONZO : TRAUMA 12/30/2012 7640-5493 S / / [id number] Screw Shaft 1891-5045s - [id number] Implanted:Qty: 1 on 06/10/2012 [place] [facility] [place]: Leg Upper ALFONZO : ORTHOPAEDICS 12/31/2015 2721-8668 S / / [id number] Mesh Vicryl 12 X 12 Vkm-L - [id number] Implanted:Qty: 1 on 04/25/2020 by Dejuan Kaufman [place] [facility] [place]A: Abdomen JNJ : [employer] 04/29/2024 VKM-L / / [id number] Mesh Soft [id number] - [id number] Implanted:Qty: 1 on 04/25/2020 by Dejuan Kaufman [place] [facility] [place]A: Abdomen CR BARD : DAVOL [id number] 07/27/2024 [id number] / / [id number] documented as of this encounter Visit Diagnoses [...] Directives occurred with: Not Discussed Care Teams Skin Drier Relationship Specialty Start Date End Date Shazia Bee MD [address] [place] [address] [place] [phone] PCP - General Family Medicine 10/30/23 documented as of this encounter
--- OUTSIDE RECORDS SUMMARY | 2024-04-01 20:45 | External Medical Summary | Summary of Care ---
Author Name Unknown Organization [facility] Address [address] [place] [address] Phone [phone] Care Team Providers Care Point Of Sale Associate Name Role Phone Shazia Bee MD Primary Care Provide r Reason for Referral * Evaluate & Treat - Unlimited Visits (Within 10 days (routine)) - Authorized Specialty Diagnoses / Procedures Referred By Amna alves Referred To Contact Dermatology Diagnoses Cutaneous lupus erythematosus Arlet Groves MD [address] [place] [address] [place] [phone] Phone: tel: fax: Referral ID Status Reason Start Date Expiration Date Visits Requested Visits Authorized [id number] Authorized Specialty Services Required 03/07/2024 999 999 Question Answer Referral Priority Within 10 days (routine) Where should this appointment be scheduled? [facility] Are you referring the patient for Mohs Surgery and have a current positive skin cancer biopsy result? No What is the reason for the patient referral? Rash/Skin Check/Eval of Lesion or Mole - cutaneous lupus, followed prior with Derm Reason for Visit * Reason Comments Acute Encounter Details Date Type Department Care Team (Latest Contact Info) Description 03/07/2024 2:40 PM EST Office Visit Family Medicine [address] [place] [address] Arlet Groves MD [address] [place] [address] [place] [phone] Cutaneous lupus erythematosus*; Chronic kidney disease, stage 3a (HCC); Primary adrenocortical insufficiency (HCC); Vaccine for viral hepatitis Allergies No known active allergiesdocumented as of this encounter (statuses as of 03/07/2024) Medications BLOOD PRESSURE CUFF MISCIndications:Fa ll for [...] time 45 g 3 03/07/19 25 Active Hepatitis B Vac Recombinant 20 MCG/ML Injection Suspension (Engerix-B)Indicat ions:Cutaneous lupus erythematosus,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 1 mL 03/07/19 25 025 Active documented as of this encounter (statuses as of 03/07/2024) Active Problems Problem Noted Date Diagnosed Date [...] as of this encounter (statuses as of 03/07/2024) Resolved Problems Problem Noted Date Diagnosed Date [...] Dr. Shima De Jesus [facility]- Keri Zaman ([phone]) [facility]- Cate Trinidad ([phone]) [facility]- Julia Villafana ([phone]) Diagnosis changed due to Research Module. Go to Snapshot for study details. Anxiety 04/26/2015 11/20/2016 Recurrent major depressive disorder 04/14/2014 06/21/2019 Adrenal insufficiency 12/12/20132016 FORCE TJR RESEARCH OTHER*[id number] 11/02/2013 03/19/2016 Overview (03/19/2016): Patient has completed [...] as of this encounter (statuses as of 03/07/2024) Immunizations Name Administration Dates Next Due Pneumococcal Conjugate Vacci ne, 20-valent ([id number]) 11/15/2021 Pneumococcal Polysaccharide PPV23 (Pneumovax) 06/26/2008 Seasonal [...] on file documented as of this encounter Last Filed Vital Signs Vital Sign Reading Time Taken Comments Blood Pressure 122/76 03/07/2024 2:26 PM EST Pulse 96 03/07/2024 2:26 PM EST Temperature 35.7 C (96.2 F) 03/07/2024 2:26 PM ES T Respiratory Rate - - Oxygen Saturation 94% 03/07/2024 2:26 PM EST Inhaled Oxygen Concentration - - Weight 102.5 kg (226 lb) 03/07/2024 2:26 PM EST Height 165.1 cm (5' 5") 03/07/2024 2:26 PM EST Body Mass Index 37.61 03/07/2024 2:26 PM EST documented in this encounter Functional Status * Are you [...] of Assessment Author No 04/26/2020 12:17 PM EST Liliana Meng RN * Do you have difficulty dressing [...] Alexis Tran RN documented in this encounter Progress Notes * Arlet Groves MD - 03/07/2024 2:31 PM EST Images from the original note were not included. History of Present Illness Tracy Benavides is a 58 year old female that presents for Acute Here today for rash on her back. Saw Derm previously. Dx with cutaneous lupus. Missed her appt in the fall. Worsened significantly again last week. Very itchy, scratches and open opens spots. All over her body. Spots on her back and both arms. Hx of lupus. Skin is very dry, does use moisturizers. Is on plaquenil. Getting an infusion. Starts as little red bumps, coleases into patches and gets very itchy. Does take PO steroids for adrenal insufficiency. Requesting Hep B vaccine, was to have at last visit and forgot prior to leaving. Physical Exam BP 122/76 | Pulse 96 | Temp 96.2 F (35.7 C) (Tympanic) | Ht 5' 5" (1.651 m) | Wt 226 lb (102.5 kg) | SpO2 94% | BMI 37.61 kg/m | BSA 2.17 m Physical Exam Vitals and nursing note reviewed. Constitutional: Appearance: Normal appearance. HENT: Head: Normocephalic and atraumatic. Mouth/Throat: Mouth: Mucous membranes are moist. Eyes: Extraocular Movements: Extraocular movements intact. Cardiovascular: Rate and Rhythm: Normal rate and regular rhythm. Pulmonary: Effort: Pulmonary effort is normal. Breath sounds: Normal breath sounds. Musculoskeletal: Cervical back: Normal range of motion and neck supple. Skin: General: Skin is warm. Findings: Rash present. Rash is macular and papular. Comments: Red macular papular rash over bilateral arms and low back, excoriation, some scabbed spots Neurological: Mental Status: She is alert and oriented to person, place, and time. Psychiatric: Mood and Affect: Mood normal. Behavior: Behavior normal. Assessment and Plan Cutaneous lupus erythematosus Will refer back to derm. With the acute worsened itchiness, will treat with topical betamethasone, no longer than 2 weeks at a time. Continue lupus treatment and infusions as well. - DERMATOLOGY REFERRAL OP Chronic kidney disease, stage 3a (HCC) Stable over the last year Primary adrenocortical insufficiency (HCC) On PO steroids chronically, to continue Need for Hep B vaccine First dosage today of 2. Wrap-Up Follow Up: Return if symptoms worsen or fail to improve. Time: I spent a total of 20-29 minutes (exact time 24 mins) on the date of service in preparation, delivery, and documentation of the care provided to Tracy Benavides excluding any time spent in the performance of separately billed services. documented in this encounter Nursing Notes * Angela Stallworth CMA - 03/07/2024 2:33 PM EST Pt here for referral to Derm. has developed rash on her back that is very itchy documented in this encounter Plan of Treatment Upcoming Encounters Date Type Department Care Team (Late st Contact Info) Description 04/27/2024 1:40 PM EST Office Visit Family Medicine [address] [place] [phone] Arlet Groves MD [address] [place] [address] [place] [phone] 05/24/2024 9:00 AM EDT Office Visit Cardiology [address] [place] [address] Quinn Uriostegui PA-C [address] [place] [address] 06/20/2024 8:40 AM EDT Office Visit Neurology [facility] [address] [place] [address] Cesar Palma MD [address] [place] [address] 10/18/2024 12:30 PM EDT Imaging Radiology [address] [place] [address] 01/30/2025 1:20 PM EST Office Visit Rheumatology [address] [place] [address] Isidro Phillips MD [address] [place] [address] 03/15/2025 3:40 PM EST Office Visit Dermatology [address] [place] [address] Zonia Jordan PA-C [address] [place] [address] [place] [phone] Scheduled Referrals Name Type Priority Associated Diagnoses Orde r Schedule DERMATOLOGY REFERRAL OP Referral Within 10 days (routine) Cutaneous lupus erythematosus Ordered: 03/07/2024 Health Maintenance Due Date Last Done Comments COVID-19 Vaccine (#1) 1970 Hepatitis B Vaccine (1 of 3 - 19+ 3-dose series) 1984 Fecal Occult Blood Test 2010 Sigmoidoscopy 2010 CKD PHOS USE SMARTSET 86512 04/30/2021 03/0 03/2020, 04/29/2020, 04/28/2020, Additional history exists Cologuard 06/02/2021 06/02/2018 GFR 07/19/2024 01/20/2024, 08/01, 06/22/2023, Additional history exists Mammogram 10/14/2024 10/15/2023, 10/01, 08/30/2021, Additional history exists CKD HGB USE SMARTSET 85656 12/27/202412/27, 08/21/2023, 06/22/2023, Additional history exists Albumin/Creatinine Ratio 01/19/2025 01/20/2024 DISCUSS TOBACCO CESSATION (REFER TO SMARTSET #5972) 01/24/2025 01/25/2024 (Discussed) Depression Monitoring 01/24/2025 01/25/2024 [...] this encounter Medical Devices Implanted Type Area Hop Grower Device Identifier Shelf Expiration Date Model / Serial / Lot [place] Arthrodesis Nail, Left Implanted:Qty: 1 on 06/10[place]2012 [place] [facility] [place] Human Left: Leg Upper ALFONZO 04/01/2016 [id number] S / / [id number] Screw Locking 1896-5035s - [id number] Implanted:Qty: 1 on 06/10/2012 [place] [facility] [place]: Leg Upper ALFONZO : TRAUMA 08/29/2013 [id number] S / / [id number] Screw Locking 1896-5030s - [id number] Implanted:Qty: 1 on 06/10/2012 [place] [facility] [place]FONZO : TRAUMA 04/29/2013 5093-7986 S / / [id number] Screw Threaded Lckg 5x42.5mm - [id number] Implanted:05/31 (Quantity not on file) Left: Leg Upper ALFONZO : ORTHOPAEDICS 12/31/2015 7558-1705 S / / [id number] Screw Locking 1896-5040s - [id number] Implanted:Qty: 1 on 06/10/2012 [place] [facility] [place]: Leg Upper ALFONZO : TRAUMA 07/30/2014 [id number] S / / [id number] Screw Compression 1825-0000s - [id number] Implanted:Qty: 1 on 06/10/2012 [place] [facility] [place]: Leg Upper ALFONZO : TRAUMA 12/30/2012 9687-3736 S / / [id number] Screw Shaft 189-5045s - [id number] Implanted:Qty: 1 on 06/10/2012 at [place] [facility] [place]: Leg Upper ALFONZO : ORTHOPAEDICS 12/31/2015 [id number] S / / [id number] Mesh Vicryl 12 X 12 Vkm-L - [id number] Implanted:Qty: 1 on 04/25/2020 by Dejuan Kaufman MD at [place] [facility] [place] N/A: Abdomen JNJ : [employer] 04/29/2024 VKM-L / / [id number] Mesh Soft 02s07ou - [id number] Implanted:Qty: 1 on 04/25/2020 by Dejuan Kaufman MD at [place] [facility] [place] N/A: Abdomen CR BARD : DAVOL [id number] 07/27/2024 [id number] / / [id number] documented as of this encounter Visit Diagnoses Diagnosis Cutaneous lupus erythematosus- Primary Lupus erythematosus Chronic kidney disease, stage 3a (HCC) Primary adrenocortical insufficiency (HCC) Glucocorticoid deficiency Vaccine for viral hepatitis Need for prophylactic vaccination and inoculation against viral hepatitis documented in this encounter Advance Directives * [...] 9:38 PM 11/15/2019 6:40 PM This order r eflects the patients wishes and were consensually agreed upon. * Full Code Date Activated Date Inactivated Comments 06/10/2012 1:34 PM 06/12/2012 3:09 PM . Question Answer Comments Discussion of Advance Directives occurred with: Not Discussed Care Teams Point Of Sale Associate Relationship Specialty Start Date End Date Shazia Bee MD [address] [place] [address] [place] [phone] PCP - General Family Medicine 10/30/23 documented as of this encounter
--- OUTSIDE RECORDS SUMMARY | 2024-04-01 20:45 | External Medical Summary | Summary of Care ---
Author Name Unknown Organization [facility] Address [address] [place] [address] Phone [phone] Care Team Providers Care Rock Wool Insulator Name Role Phone Shazia Bee MD Primary Care Provide r Reason for Referral * Evaluate & Treat - Unlimited Visits (Within 10 days (routine)) - Authorized Specialty Diagnoses / Procedures Referred By Amna alves Referred To Contact Dermatology Diagnoses Cutaneous lupus erythematosus Arlet Groves MD [address] [place] [address] [place] [phone] Phone: tel: fax: Referral ID Status Reason Start Date Expiration Date Visits Requested Visits Authorized [id number] Authorized Specialty Services Required 03/07/2024 999 999 [...] 2:40 PM EST Office Visit Family Medicine [address] [place] [phone] Arlet Groves MD [address] [place] [address] [place] [phone] Cutaneous lupus erythematosus*; Chronic [...] mL 5 1:47 PM EST 01/20/20 24 Active DULoxetine [...] 20 MCG/ML Injection Suspension (Engerix-B)Indicat ions:Cutaneous lupus erythematosus,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 1 mL 03/07/19 25 025 Discontin ued(Medic ation List Clean Up) documented as of this encounter (statuses as [...] assay failure rates. Contacts: PI: Dr. Shima Burns CRC- Keri Zaman ([phone]) [facility] CRC- Cate Trinidad ([phone]) [facility] CRC- Julia Villafana ([phone]) Diagnosis changed due to Research Module. Go to Snapshot for study details. Anxiety 04/26/2015 11/20/2016 Recurrent major depressive disorder 04/14/2014 06/21/2019 Adrenal insufficiency 12/12/20132016 FORCE TJR RESEARCH OTHER*[id number] 11/02/2013 03/19/2016 Overview (03/19/2016): Patient has completed [...] 03/07/2024) Immunizations Name Administration Dates Next Due Hepatitis B, 20+ yrs 03/07/2024 Pneumococcal Conjugate Vacci ne, 20-valent (Ozytkyz72) 11/15/2021 Pneumococcal Polysaccharide PPV23 (Pneumovax) 06/26/2008 Seasonal [...] documented in this encounter Progress Notes * Octavia Vargas, Arlet Kraus MD - 03/07/2024 2:31 PM EST Images [...] documented in this encounter Nursing Notes * Beryr Ramirez CMA - 03/07/2024 2:33 PM EST Pt here for referral to Derm. has developed rash on her back that is very itchy documented in this encounter Miscellaneous Notes * Addendum Note - Berry Ramirez CMA - 03/07/2024 3:06 PM ESTAddended by: BERRY RAMIREZ on: 03/07/2024 03:06 PM Modules accepted: Orders documented in this encounter Plan of Treatment Upcoming Encounters Date Type Department Care Team (Late st Contact Info) Description 04/27/2024 1:40 PM EST Office Visit Family Medicine [address] [place] [phone] Arlet Groves MD [address] [place] [address] [place] [phone] 05/24/2024 9:00 AM EDT Office Visit Cardiology [address] [place] [address] Quinn Uriostegui PA-C [address] [place] [address] 06/20/2024 8:40 AM EDT Office Visit [facility] [address] [place] [address] Cesar Palma MD [address] [place] [address] 10/18/2024 12:30 PM EDT Imaging Radiology [address] [place] [address] 01/30/2025 1:20 PM EST Office Visit Rheumatology [place] [address] [facility] [place] [address] Isidro Phillips MD [address] [facility] [place] [address] 03/15/2025 3:40 PM EST Office Visit Dermatology [address] [place] [address] Zonia Jordan PA-C [address] [place] [address] [place] [phone] Scheduled Referrals Name Type Priority Associated Diagnoses Orde r Schedule DERMATOLOGY REFERRAL OP Referral Within 10 days (routine) Cutaneous lupus erythematosus Ordered: 03/07/2024 Health Maintenance Due Date Last Done Comments COVID-19 Vaccine (#1) 1970 Fecal Occult Blood Test 2010 Sigmoidoscopy 2010 CKD PHOS USE SMARTSET 05925 04/30/2021 03/0 03/2020, 04/29/2020, 04/28/2020, Additional history exists Cologuard 06/02/2021 06/02/2018 Hepatitis B Vaccine (2 of 3 - 19+ 3-dose series) 04/04/2024 03/07/2024 GFR 07/19/2024 01/20/2024, 08/01, 06/22/2023, Additional history exists Mammogram 10/14/2024 10/15/2023, 10/01, 08/30/2021, Additional history exists CKD HGB USE SMARTSET 07489 12/27/202412/27, 08/21/2023, 06/22/2023, Additional history exists Albumin/Creatinine Ratio 01/19/2025 01/20/2024 DISCUSS TOBACCO CESSATION (REFER TO SMARTSET #3291) 01/24/2025 01/25/2024 (Discussed) Depression Monitoring 01/24/2025 01/25/2024 Diabetes Screening 01/19/2027 01/20/2024, 0 08/21/2023, 06/22/2023, Additional history exists Colonoscopy 02/08/2027 02/09/2024, 01/30, 04/24/2020, Additional history exists Colorectal Cancer Screening 02/08/2027 DTap/Tdap Vaccines (3 - Td or Tdap) 06/08/2028 06/08/2018, 08/27/2007 Lipid Panel 10/07/2028 10/08/2023, 0304/2022, 03/25/2021, Additional history exists Zoster Vaccines Completed [...] this encounter Medical Devices Implanted Type Area Sterilisation Technician Device Identifier Shelf Expiration Date Model / Serial / Lot [place] Arthrodesis Nail, Left [place]ed:[place] [facility] [place] Human Left: Leg Upper ALFONZO 04/01/2016 [id number] S / / [id number] Screw Locking 1896-5035s - [id number] Implanted:Qty: 1 [place]10[place] [facility] [place]: Leg Upper ALFONZO : TRAUMA 08/29/2013 [id number] S / / [id number] Screw Locking 1896-5030s - [id number] Implanted:Qty: 1 [place] 06[place]10/2012 [place] [facility] [place]FONZO : TRAUMA 04/29/2013 [id number] S / / [id number] Screw Threaded Lckg 5x42.5mm - [id number] Implanted:05/31 (Quantity not on file) Left: Leg Upper ALFONZO : ORTHOPAEDICS 12/31/2015 8904-4425 S / / [id number] Screw Locking 1896-5040s - [id number] Implanted:Qty: 1 [place] 06/10/2012 [place] [facility] [place]: Leg Upper ALFONZO : TRAUMA 07/30/2014 [id number] S / / [id number] Screw Compression 1825-0000s - [id number] Implanted:Qty: 1 [place] 06[place]10[place]2012 [place] [facility] [place]: Leg Upper ALFONZO : TRAUMA 12/30/2012 [id number] S / / [id number] Screw Shaft 1891-5045s - [id number] Implanted:Qty: 1 [place] 06/10/2012 [place] [facility] [place]: Leg Upper ALFONZO : ORTHOPAEDICS 12/31/2015 [id number] S / / [id number] Mesh Vicryl 12 X 12 Vkm-L - [id number] Implanted:Qty: 1 on 04/25/2020 by Dejuan Kaufman [place] [facility] [place]A: Abdomen JNJ : [employer] 04/29/2024 VKM-L / / [id number] Mesh Soft [id number] - [id number] Implanted:Qty: 1 on 04/25/2020 by Dejuan Kaufman [place] [facility] [place]A: Abdomen CR BARD : DAVOL [id number] 07/27/2024 [id number] / / [id number] documented as of this encounter Visit Diagnoses [...] Directives occurred with: Not Discussed Care Teams Rock Wool Insulator Relationship Specialty Start Date End Date Shazia Bee MD [address] [place] [address] [place] [address] PCP - General Family Medicine 10/30/23 documented as of this encounter
--- OUTSIDE RECORDS SUMMARY | 2024-04-01 20:45 | External Medical Summary | Summary of Care ---
Author Name Unknown Organization [facility] Address [address] [facility] [place] [address] Phone [phone] Care Team Providers Care Registrar Nurses' Registry Name Role Phone Shazia Bee MD Primary Care Provide r Reason for Visit * Reason Comments eRx-Medication Refill Encounter Details Date Type Department Care Team (Late st Contact Info) Description 03/02/2024 Refill Family Medicine [address] [phone] Shazia Bee MD [address] [place] [address] [place] [address] Lumbar degenerative disc disease Allergies No known active allergiesdocumented as of this encounter (statuses as of 03/03/2024) Medications BLOOD PRESSURE CUFF MISCIndications:F all for [...] each evening 180 Tablet 1 024 Active Trulance 3 MG Oral Tablet (Plecanatide) Take 3 mg by mouth daily. 30 Tablet 3 024 Active Atorvastatin Calcium 40 MG Oral [...] the tablet. 60 Tablet 5 024 Active Wegovy 0.5 MG/0.5ML Subcutaneous Solution Auto-injector (Semaglutide-Weig ht Management)Indica tions:Obesity (BMI 30-39.9) Inject 0.5 mg under the skin once a week. 2 mL 024 Active DULoxetine HCl 60 MG Oral [...] epigastric pain 360 Tablet 1 024 Active Baclofen 20 MG Oral TabletIndications :Lumbar degenerative disc disease TAKE ONE TABLET BY MOUTH IN THE MORNING, at noon, and before bedtime if needed for muscle spasms 90 Tablet 025 Active Baclofen 20 MG Oral TabletIndications :Lumbar degenerative disc disease TAKE ONE TABLET BY MOUTH IN THE MORNING, at noon, and before bedtime if needed for muscle spasms 90 Tablet 12/04/2 024 2024 Discontinued documented as of this encounter (statuses as of 03/03/2024) Active Problems Problem Noted Date Diagnosed Date Chronic kidney disease, stage 3a 02/08/2024 Overview: Per CKD protocol Necrotizing fasciitis 01/25/2024 GERD (gastroesophageal reflux disease) 4 Food insecurity [...] as of this encounter (statuses as of 03/03/2024) Resolved Problems Problem Noted Date Diagnosed Date [...] [facility]- Keri Zaman ([phone]) [facility]- Cate Trinidad ([phone]) [facility] CRC- Julia Villafana ([phone]) Diagnosis changed due to Research Module. Go to Snapshot for study details. Anxiety 04/26/2015 11/20/2016 Recurrent major depressive disorder 04/14/2014 06/21/2019 Adrenal insufficiency 12/12/20132016 [employer]CE TJR RESEARCH OTHER*[id number] 11/02/2013 03/19/2016 Overview (03/19/2016): Patient has completed participation in this research study. 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 015 Osteoarthritis, knee 05/14/2012 03/15/2 013 Primary localized osteoarthrosis, lower leg 10/04/2010 [...] as of this encounter (statuses as of 03/03/2024) Immunizations Name Administration Dates Next Due Pneumococcal Conjugate Vacci ne, 20-valent ([id number]) 11/15/2021 Pneumococcal Polysaccharide PPV23 (Pneumovax) 06/26/2008 Seasonal [...] of Assessment Author No 04/24/2020 5:38 PM Rose Tran RN * Because of a physical, [...] Telephone Encounter - Shazia Bee MD - 03/03/2024 10:10 AM EST Signed Prescriptions: Disp Refills Baclofen 20 MG Oral Tablet 90 Tab*0 Sig: TAKE ONE TABLET BY MOUTH IN THE MORNING, at noon, and before bedtime if needed for muscle spasms Authorizing Provider: SHAZIA BEE * Telephone Encounter - Judith Cortez LPN - 03/03/2024 9:16 AM ESTPending Prescriptions: Disp Refills Baclofen 20 MG Oral Tablet [Pharmacy Med N*90 Tab*0 Sig: TAKE ONE TABLET BY MOUTH IN THE MORNING, at noon, and before bedtime if needed for muscle spasms * Telephone Encounter - Judith Cortez LPN - 03/03/2024 9:15 AM EST Did you pend patient's preferred pharmacy and medication before forwarding?yes Pharmacy: [id number] [address] [facility] Pending Prescriptions: Disp Refills Baclofen 20 MG Oral Tablet [Pharmacy Med *90 Tab*0 Sig: TAKE ONE TABLET BY MOUTH IN THE MORNING, at noon, and before bedtime if needed for muscle spasms Last Visit: 01/25/2024 (in office), Visit date not found (telemedicine) Next Visit: 04/27/2024 If no future appointments scheduled, and last appointment is greater than a year ago, please schedule patient for a follow-up appointment Last date the medication was ordered: 02/03/24 Is this request for a controlled substance?No [...] 01:35 PM HGBA1C 5.4 11/02/2013 12:36 PM * Telephone Encounter - Lamin Neff - 03/02/2024 1:37 PM ESTPending Prescriptions: Disp Refills Baclofen 20 MG Oral Tablet [Pharmacy Med N*90 Tab*0 Sig: TAKE ONE TABLET BY MOUTH IN THE MORNING, at noon, and before bedtime if needed for muscle spasms documented in this encounter Plan of Treatment Upcoming Encounters Date Type Department Care Team (Late st Contact Info) Description 04/27/2024 1:40 PM EST Office Visit Family Medicine [address] [place] [phone] Arlet Groves MD [address] [place] [address] [place] [phone] 05/24/2024 9:00 AM EDT Office Visit Cardiology [address] [place] [address] Quinn Uriostegui PA-C [address] [place] [address] 06/20/2024 8:40 AM EDT Office Visit Neurology [facility] [place] [address] [place] [address] Cesar Palma MD [address] [place], [place] [id number] 10/18/2024 12:30 PM EDT Imaging Radiology [address] [place] [address] 01/30/2025 1:20 PM EST Office Visit Rheumatology [facility] [address] [facility] [place] [address] Isidro Phillips MD [address] [facility] [place] [address] Health Maintenance Due Date Last Done Comments COVID-19 Vaccine (#1) 1970 Albumin/Creatinine Ratio 11/04/1983 Hepatitis B Vaccine (1 of 3 - 19+ 3-dose series) 1984 Fecal Occult Blood Test 2010 Sigmoidoscopy 2010 CKD PHOS USE SMARTSET 18169 04/30/2021 03/0 03/2020, 04/29/2020, 04/28/2020, Additional history exists Cologuard 06/02/2021 06/02/2018 GFR 07/19/2024 01/20/2024, 06/2 03/2023, 06/22/2023, Additional history exists Mammogram 10/14/2024 10/15/2023, 10/01, 08/30/2021, Additional history exists CKD HGB USE SMARTSET 11114 12/27/202412/27, 08/21/2023, 06/22/2023, Additional history exists DISCUSS TOBACCO CESSATION (REFER TO SMARTSET #6463) 01/24/2025 01/25/2024 (Discussed) Depression Monitoring 01/24/2025 01/25/2024 [...] this encounter Medical Devices Implanted Type Area Truck Railroad And Bus Motor Mechanic Device Identifier Shelf Expiration Date Model / Serial / Lot [place] Arthrodesis Nail, Left Implanted:Qty: 1 on 06/10/2012 [place] [facility] [place] - Non Human Left: Leg Upper ALFONZO 04/01/2016 0680-2375 S / / [id number] Screw Locking 1896-5035s - [id number] Implanted:Qty: 1 on 06/10/2012 [place] [facility] [place]: Leg Upper ALFONZO : TRAUMA 08/29/2013 4085-9698 S / / [id number] Screw Locking 1896-5030s - [id number] Implanted:Qty: 1 on 06/10/2012 [place] [facility] [place] ALFONZO : TRAUMA 04/29/2013 0536-2115 S / / [id number] Screw Threaded Lckg 5x42.5mm - [id number] Implanted:05/31 (Quantity not on file) Left: Leg Upper ALFONZO : ORTHOPAEDICS 12/31/2015 7053-4998 S / / [id number] Screw Locking 1896-5040s - [id number] Implanted:Qty: 1 on 06/10/2012 [place] [facility] [place]: Leg Upper ALFONZO : TRAUMA 07/30/2014 6401-3739 S / / [id number] Screw Compression 1825-0000s - [id number] Implanted:Qty: 1 on 06/10/2012 [place] [facility] [place]: Leg Upper ALFONZO : TRAUMA 12/30/2012 2117-0474 S / / [id number] Screw Shaft 1891-5045s - [id number] Implanted:Qty: 1 on 06/10/2012 at [place] [facility] [place]: Leg Upper ALFONZO : ORTHOPAEDICS 12/31/2015 9666-2968 S / / [id number] Mesh Vicryl 12 X 12 Vkm-L - [id number] Implanted:Qty: 1 on 04/25/2020 by Dejuan Kaufman MD at [place] [facility] [place] N/A: Abdomen JNJ : [employer] 04/29/2024 VKM-L / / [id number] Mesh Soft 32n66co - [id number] Implanted:Qty: 1 on 04/25/2020 by Dejuan Kaufman MD at [place] [facility] [place] N/A: Abdomen CR BARD : DAVOL [id number] 07/27/2024 [id number] / / [id number] documented as of this encounter Visit Diagnoses Diagnosis Lumbar degenerative disc disease Degeneration of lumbar or lumbosacral intervertebral disc documented in this encounter Advance Directives * [...] Directives occurred with: Not Discussed Care Teams Registrar Nurses' Registry Relationship Specialty Start Date End Date Shazia Bee MD [address] [place] [address] [place] [phone] PCP - General Family Medicine 10/30/23 documented as of this encounter
--- OUTSIDE RECORDS SUMMARY | 2024-04-01 20:45 | External Medical Summary | Summary of Care ---
Author Name Unknown Organization [facility] Address [address] [place] [address] Phone [phone] Care Team Providers Care Picking Crew Supervisor Name Role Phone Shazia Bee MD Primary Care Provide r Reason for Referral * Evaluate & Treat - Unlimited Visits (Within 10 days (routine)) - Authorized Specialty Diagnoses / Procedures Referred By Amna alves Referred To Contact Dermatology Diagnoses Cutaneous lupus erythematosus Arlet Groves MD [address] [place] [address] [place] [phone] Phone: tel: fax: Referral ID Status Reason Start Date Expiration Date Visits Requested Visits Authorized [id number] Authorized Specialty Services Required 03/07/2024 999 999 [...] 2:40 PM EST Office Visit Family Medicine [address] [place] [phone] Arlet Groves MD [address] [place] [address] [place] [phone] Cutaneous lupus erythematosus*; Chronic [...] 20 MCG/ML Injection Suspension (Engerix-B)Indicat ions:Cutaneous lupus erythematosus,Dairy Farm Supervisor krzysztof kidney disease, stage 3a (HCC),Vaccine for [...] PI: Dr. Shima Burns CRC- Keri Zaman ([phone]) [facility] CRC- Cate Trinidad ([phone]) [facility] CRC- Julia Villafana ([phone]) Diagnosis changed due to Research Module. Go to Snapshot for study details. Anxiety 04/26/2015 11/20/2016 Recurrent major depressive disorder 04/14/2014 06/21/2019 Adrenal insufficiency 12/12/20132016 [employer] TJR RESEARCH OTHER*[id number] 11/02/2013 03/19/2016 Overview (03/19/2016): Patient has completed [...] yrs 03/07/2024 Pneumococcal Conjugate Vacci ne, 20-valent ([id number]) 11/15/2021 Pneumococcal Polysaccharide PPV23 (Pneumovax) 06/26/2008 Seasonal [...] documented in this encounter Nursing Notes * Berry Ramirez CMA - 03/07/2024 2:33 PM EST [...] 1:40 PM EST Office Visit Family Medicine [address] [place] [phone] Arlet Groves MD [address] [place] [address] [place] [phone] 05/24/2024 9:00 AM EDT Office Visit Cardiology [address] [place] [address] Quinn Uriostegui PA-C [address] [place] [address] 06/20/2024 8:40 AM EDT Office Visit Neurology [facility] [address] [place] [address] Cesar Palma MD [address] [place] [address] 10/18/2024 12:30 PM EDT Imaging Radiology [address] [place] [address] 01/30/2025 1:20 PM EST Office Visit Rheumatology [place] [address] [facility] [place] [address] Isidro Phillips MD [address] [facility] [place] [address] 03/15/2025 3:40 PM EST Office Visit Dermatology [address] [place] [address] Zonia Jordan PA-C [address] [place] [address] [place] [address] Scheduled Referrals Name Type Priority Associated Diagnoses Orde r Schedule DERMATOLOGY REFERRAL OP Referral Within 10 days (routine) Cutaneous lupus erythematosus Ordered: 03/07/2024 Health Maintenance Due Date Last Done Comments COVID-19 Vaccine (#1) 1970 Fecal Occult Blood Test 2010 Sigmoidoscopy 2010 CKD PHOS USE SMARTSET 54828 04/30/2021 03/0 03/2020, 04/29/2020, 04/28/2020, Additional history exists Cologuard 06/02/2021 06/02/2018 Hepatitis B Vaccine (2 of 3 - 19+ 3-dose series) 04/04/2024 03/07/2024 GFR 07/19/2024 01/20/2024, 08/01, 06/22/2023, Additional history exists Mammogram 10/14/2024 10/15/2023, 10/01, 08/30/2021, Additional history exists CKD HGB USE SMARTSET 39381 12/27/202412/27, 08/21/2023, 06/22/2023, Additional history exists Albumin/Creatinine [...] this encounter Medical Devices Implanted Type Area Anchor Operator Device Identifier Shelf Expiration Date Model / Serial / Lot [place] Arthrodesis Nail, Left Implanted:Qty: 1 on 06/10/2012 at [place] [facility] [place] Tissue - Non Human Left: Leg Upper ALFONZO 04/01/2016 7217-3133 S / / [id number] Screw Locking 1896-5035s - [id number] Implanted:Qty: 1 on 06/10/2012 at OR [facility] [place] Left: Leg Upper ALFONZO : TRAUMA 08/29/2013 2897-4221 S / / [id number] Screw Locking 1896-5030s - [id number] Implanted:Qty: 1 on 06/10/2012 at OR [facility] [place] ALFONZO : TRAUMA 04/29/2013 8863-9272 S / / [id number] Screw Threaded Lckg 5x42.5mm - [id number] Implanted:05/31 (Quantity not on file) Left: Leg Upper ALFONZO : ORTHOPAEDICS 12/31/2015 6813-1708 S / / [id number] Screw Locking 1896-5040s - [id number] Implanted:Qty: 1 on 06/10/2012 at OR [facility] [place] Left: Leg Upper ALFONZO : TRAUMA 07/30/2014 5140-1260 S / / [id number] Screw Compression 1825-0000s - [id number] Implanted:Qty: 1 on 06/10/2012 at OR [facility] [place] Left: Leg Upper ALFONZO : TRAUMA 12/30/2012 5746-2308 S / / [id number] Screw Shaft 1891-5045s - [id number] Implanted:Qty: 1 on 06/10/2012 at OR [facility] [place] Left: Leg Upper ALFONZO : ORTHOPAEDICS 12/31/2015 8633-6281 S / / [id number] Mesh Vicryl 12 X 12 Vkm-L - [id number] Implanted:Qty: 1 on 04/25/2020 by Dejuan Kaufman MD at OR [facility] [place] N/A: Abdomen JNJ : [employer] 04/29/2024 VKM-L / / [id number] Mesh Soft 82r40oq - [id number] Implanted:Qty: 1 on 04/25/2020 by Dejuan Kaufman MD at OR [facility] [place] N/A: Abdomen CR BARD : DAVOL [id number] 07/27/2024 [id number] / / [id number] documented as of this encounter Visit Diagnoses [...] Directives occurred with: Not Discussed Care Teams Picking Crew Supervisor Relationship Specialty Start Date End Date Shazia Bee MD [address] [place] [address] [place] [phone] PCP - General Family Medicine 10/30/23 documented as of this encounter
--- OUTSIDE RECORDS SUMMARY | 2024-04-01 20:46 | External Medical Summary | Summary of Care ---
Author Name Unknown Organization [facility] Address [address] [facility] [place] [address] Phone [phone] Care Team Providers Care Hall Monitor Name Role Phone Shazia Bee MD Primary Care Provide r Reason for Visit * Reason Comments eRx-Medication Refill Encounter Details Date Type Department Care Team (Late st Contact Info) Description 02/24/2024 Refill Gastroenterology [address] [place] [address] Sheryl Orellana CRNP [address] [place] [address] Allergies No known active allergiesdocumented as of this encounter (statuses as of 02/25/2024) Medications BLOOD PRESSURE CUFF MISCIndications:F all for [...] or chew the tablet. 60 Tablet 5 Active Wegovy 0.5 MG/0.5ML Subcutaneous Solution Auto-injector (Semaglutide-Miguelg ht Management)Indica tions:Obesity (BMI 30-39.9) Inject 0.5 mg under the skin once a week. 2 mL Active DULoxetine HCl 60 MG Oral Capsule Delayed Release Particles (Cymbalta) Active Gabapentin 400 MG Oral Capsule (Neurontin)Indica tions:Spinal stenosis of lumbar region with neurogenic claudication Take 1 Capsule by mouth in the morning and 1 Capsule at noon and 1 Capsule before bedtime. 270 Capsule 3 Active Meloxicam 7.5 MG Oral Tablet (Mobic)Indication [...] 9 tabs 270 Tablet 3 024 Active Baclofen 20 MG Oral TabletIndications :Lumbar degenerative disc disease TAKE ONE TABLET BY MOUTH IN THE MORNING, at noon, and before bedtime if needed for muscle spasms 90 Tablet 024 Active Sucralfate 1 GM Oral Tablet (Carafate) TAKE ONE TABLET BY MOUTH AT BEDTIME. may also take up to 4 times daily if needed for nausea, epigastric pain 360 Tablet 1 Active Sucralfate 1 GM Oral Tablet (Carafate) TAKE ONE TABLET BY MOUTH AT BEDTIME. may also take additionally up to 4 times daily if needed for nausea, epigastric pain 360 Tablet 024 2023 Discontinued documented as of this encounter (statuses as of 02/25/2024) Active Problems Problem Noted Date Diagnosed Date [...] as of this encounter (statuses as of 02/25/2024) Resolved Problems Problem Noted Date Diagnosed Date [...] rates. Contacts: PI: Dr. Shima [facility]- Keri Zaman ([phone]) [facility] CRC- Cate Trinidad ([phone]) [facility] CRC- Julia Villafana ([phone]) Diagnosis changed due to Research Module. Go to Snapshot for study details. Anxiety 04/26/2015 11/20/2016 Recurrent major depressive disorder 04/14/2014 06/21/2019 Adrenal insufficiency 12/12/20132016 [employer] TJR RESEARCH OTHER*[id number] 11/02/2013 03/19/2016 Overview (03/19/2016): Patient has completed [...] as of this encounter (statuses as of 02/25/2024) Immunizations Name Administration Dates Next Due Pneumococcal Conjugate Vacci ne, 20-valent ([id number]) 11/15/2021 Pneumococcal Polysaccharide PPV23 (Pneumovax) 06/26/2008 Seasonal [...] encounter Miscellaneous Notes * Telephone Encounter - Shaina James [facility] - 02/25/2024 4:20 PM ESTSigned Prescriptions: Disp Refills Sucralfate 1 GM Oral Tablet (Carafate) 360 Ta*1 Sig: TAKE ONE TABLET BY MOUTH AT BEDTIME. may also take up to 4 times daily if needed for nausea, epigastric painAuthorizing Provider: SHERYL ORELLANA User: SHAINA JAMES * Telephone Encounter - Shaina James [facility] - 02/25/2024 3:17 PM ESTPending Prescriptions: Disp Refills Sucralfate 1 GM Oral Tablet (Carafate) 360 Ta*0 Sig: TAKE ONE TABLET BY MOUTH AT BEDTIME. MAY ALSO TAKE ADDITIONALLY UP TO 4 TIMES DAILY IF NEEDED FOR NAUSEA, EPIGASTRIC PAIN documented in this encounter Plan of Treatment Upcoming Encounters Date Type Department Care Team (Late st Contact Info) Description 04/27/2024 1:40 PM EST Office Visit Family Medicine [address] [place] [phone] Arlet Groves MD [address] [place] [address] [place] [phone] 05/24/2024 9:00 AM EDT Office Visit Cardiology [address] [place] [phone] Quinn Uriostegui PA-C [address] [place] [address] 06/20/2024 8:40 AM EDT Office Visit Neurology [facility] [address] [place] [address] Cesar Palma MD [address] [facility] [place] [address] 10/18/2024 12:30 PM EDT Imaging Radiology [address] [place] [address] 01/30/2025 1:20 PM EST Office Visit Rheumatology [facility] [address] [place] [address] Isidro Phillips MD [address] [employer] [place] [address] Health Maintenance Due Date Last Done Comments COVID-19 Vaccine (#1) 1970 Albumin/Creatinine Ratio 11/04/1983 Hepatitis B Vaccine (1 of 3 - 19+ 3-dose series) 1984 Fecal Occult Blood Test 2010 Sigmoidoscopy 2010 CKD PHOS USE SMARTSET 67035 04/30/2021 03/0 03/2020, 04/29/2020, 04/28/2020, Additional history exists Cologuard 06/02/2021 06/02/2018 GFR 07/19/2024 01/20/2024, 08/01, 06/22/2023, Additional history exists Mammogram 10/14/2024 10/15/2023, 10/01, 08/30/2021, Additional history exists CKD HGB USE SMARTSET 30009 12/27/202412/27, 08/21/2023, 06/22/2023, Additional history exists DISCUSS TOBACCO CESSATION (REFER TO SMARTSET #1181) 01/24/2025 01/25/2024 (Discussed) Depression Monitoring 01/24/2025 01/25/2024 [...] this encounter Medical Devices Implanted Type Area Massotherapist Device Identifier Shelf Expiration Date Model / Serial / Lot [place] Arthrodesis Nail, Left Implanted:Qty: 1 on 06/10/2012 [place] [facility] [place] - Non Human Left: Leg Upper ALFONZO 04/01/2016 3107-1944 S / / [id number] Screw Locking 1896-5035s - [id number] Implanted:Qty: 1 on 06/10/2012 at [place] [facility] [place] Left: Leg Upper ALFONZO : TRAUMA 08/29/2013 8681-3633 S / / [id number] Screw Locking 1896-5030s - [id number] Implanted:Qty: 1 on 06/10/2012 at [place] [facility] [place] ALFONZO : TRAUMA 04/29/2013 2511-1016 S / / [id number] Screw Threaded Lckg 5x42.5mm - [id number] Implanted:05/31 (Quantity not on file) Left: Leg Upper ALFONZO : ORTHOPAEDICS 12/31/2015 3099-1746 S / / [id number] Screw Locking 1896-5040s - [id number] Implanted:Qty: 1 on 06/10/2012 at [place] [facility] [place] Left: Leg Upper ALFONZO : TRAUMA 07/30/2014 7168-7249 S / / [id number] Screw Compression 1825-0000s - [id number] Implanted:Qty: 1 on 06/10/2012 at [facility] Left: Leg Upper ALFONZO : TRAUMA 12/30/2012 6750-2885 S / / [id number] Screw Shaft 1891-5045s - [id number] Implanted:Qty: 1 on 06/10/2012 at [place] [facility] [place] Left: Leg Upper ALFONZO : ORTHOPAEDICS 12/31/2015 7019-0157 S / / [id number] Mesh Vicryl 12 X 12 Vkm-L - [id number] Implanted:Qty: 1 on 04/25/2020 by Dejuan Kaufman MD at OR [facility] [place] N/A: Abdomen JNJ : [employer] 04/29/2024 VKM-L / / [id number] Mesh Soft [id number] - [id number] Implanted:Qty: 1 on 04/25/2020 by Dejuan Kaufman MD at OR [facility] [place] N/A: Abdomen CR BARD : DAVOL [id number] 07/27/2024 [id number] / / [id number] documented as of this encounter Advance Directives [...] Directives occurred with: Not Discussed Care Teams Hall Monitor Relationship Specialty Start Date End Date Shazia Bee MD [address] [place] [address] [place] [address] PCP - General Family Medicine 10/30/23 documented as of this encounter
--- OUTSIDE RECORDS SUMMARY | 2024-04-01 20:46 | External Medical Summary | Summary of Care ---
Author Name Unknown Organization [facility] Address [address] [facility] [place] [address] Phone [phone] Care Team Providers Care School Bus Inspector Name Role Phone Shazia Bee MD Primary Care Provide r Reason for Visit * Reason Onset Date Comments Health Maintenance 02/19/2024 Encounter Details Date Type Department Care Team (Late st Contact Info) Description 02/19/2024 Telephone Family Medicine [address] [place] [phone] Shazia Bee MD [address] [place], [place] [address] [phone] Health Maintenance Allergies No known active allergiesdocumented as of this encounter (statuses as of 02/19/2024) Medications BLOOD PRESSURE CUFF MISCIndications:Fa ll for [...] evening 180 Tablet 1 08/19/19 24 Active Sucralfate 1 GM Oral Tablet (Carafate) TAKE ONE TABLET BY MOUTH AT BEDTIME. may also take additionally up to 4 times daily if needed for nausea, epigastric pain 360 Tablet 11/22/19 24 Active Trulance 3 MG Oral Tablet [...] muscle spasms 90 Tablet 02/03/20 24 Active documented as of this encounter (statuses as of 02/19/2024) Active Problems Problem Noted Date Diagnosed Date [...] as of this encounter (statuses as of 02/19/2024) Resolved Problems Problem Noted Date Diagnosed Date [...] Dr. Shima De Jesus [facility]- Keri Zaman ([phone]) [facility]- Cate Trinidad ([phone]) [facility]- Julia Villafana ([phone]) Diagnosis changed due to Research Module. Go to Snapshot for study details. Anxiety 04/26/2015 11/20/2016 Recurrent major depressive disorder 04/14/2014 06/21/2019 Adrenal insufficiency 12/12/20132016 [facility] RESEARCH OTHER*[id number] 11/02/2013 03/19/2016 Overview (03/19/2016): Patient has completed [...] as of this encounter (statuses as of 02/19/2024) Immunizations Name Administration Dates Next Due Pneumococcal Conjugate Vacci ne, 20-valent ([id number]) 11/15/2021 Pneumococcal Polysaccharide PPV23 (Pneumovax) 06/26/2008 Seasonal [...] encounter Miscellaneous Notes * Telephone Encounter - Valarie Hadley LPN - 02/19/2024 8:24 AM EST Care Gaps Comprehensive Care Outreach Last Office/Telemedicine Visit: 01/25/2024 (in office), Visit date not found (telemedicine) Next Office Visit: 04/27/2024 Hemoglobin AIC Results: Lab Results Component Value Date/Time HEMOGLOBIN A1C - [facility] 5.7 (H) 03/31/2023 01:35 PM HEMOGLOBIN A1C - [facility] 5.3 09/15/2022 01:12 PM HEMOGLOBIN A1C - [facility] 5.4 11/02/2013 12:36 PM BP Readings from Last 1 Encounters: 02/09/24 107/62 Reviewed Health Maintenance below: Health Maintenance Topic Date Due COVID-19 Vaccine (1) Never done Albumin/Creatinine Ratio Never done Hepatitis B Vaccine (1 of 3 - 19+ 3-dose series) Never done CKD PHOS USE SMARTSET 36283 04/30/2021 GFR 07/19/2024 Labs apr Mamm already scheduled for aug order placed Care Gap Outreach Action Taken: Left message documented in this encounter Plan of Treatment Upcoming Encounters Date Type Department Care Team (Late st Contact Info) Description 04/27/2024 1:40 PM EST Office Visit Family Medicine [address] [place] [phone] Arlet Groves MD [address] [place] [address] [place] [phone] 05/24/2024 9:00 AM EDT Office Visit Cardiology [address] [place] [address] Quinn Uriostegui PA-C [address] [facility] [address] 06/20/2024 8:40 AM EDT Office Visit Neurology [facility] [address] [place] [address] [facility] Palma [facility] [address] [facility] [address] 10/18/2024 12:30 PM EDT Imaging Radiology [address] [place] [address] 01/30/2025 1:20 PM EST Office Visit Rheumatology [place] [address] [employer] [place] [address] Isidro Phillips MD [address] [place] [address] Scheduled Orders Name Type Priority Associated Diagnoses Orde r Schedule MAMMOGRAM SCREENING TAMIR BILATERAL Medical Imaging Routine Encounter for screening mammogram for malignant neoplasm of breast Expected: 02/19/2024, Expires: 03/21/2025 Health Maintenance Due Date Last Done Comments COVID-19 Vaccine (#1) 1970 Albumin/Creatinine Ratio 11/04/1983 Hepatitis B Vaccine (1 of 3 - 19+ 3-dose series) 1984 Fecal Occult Blood Test 2010 Sigmoidoscopy 2010 CKD PHOS USE SMARTSET 11885 04/30/2021 03/0 03/2020, 04/29/2020, 04/28/2020, Additional history exists Cologuard 06/02/2021 06/02/2018 GFR 07/19/2024 01/20/2024, 08/01, 06/22/2023, Additional history exists Mammogram 10/14/2024 10/15/2023, 10/01, 08/30/2021, Additional history exists CKD HGB USE SMARTSET 43604 12/27/202412/27, 08/21/2023, 06/22/2023, Additional history exists DISCUSS TOBACCO CESSATION (REFER TO SMARTSET #3567) 01/24/2025 01/25/2024 (Discussed) Depression Monitoring 01/24/2025 01/25/2024 Diabetes Screening 01/19/2027 01/20/2024, 0 08/21/2023, 06/22/2023, Additional history exists Colonoscopy 02/08/2027 02/09/2024, 01/30, 04/24/2020, Additional history exists Colorectal Cancer Screening 02/08/2027 DTap/Tdap Vaccines (3 - Td or Tdap) 06/08/2028 06/08/2018, 08/27/2007 Lipid Panel 10/07/2028 10/08/2023, 03/0 04/2022, 03/25/2021, Additional history exists Zoster Vaccines Completed 05/31/2019, 04/01/2019 Pneumococcal Vaccine: Pediatrics (0 to 5 Years) and At-Risk Patients (6 to 64 Years) Completed 11/15/2021, 06/26/2008 Influenza Vaccine (FLU shot) Completed 08/2023, 01/20/2023, 11/15/2021, Additional history exists Lung Cancer Screening Completed 11/12/2023, 022 HPV (Gardasil) Vaccine Aged Out No lo nger eligible based on patient's age to complete this topic MENINGOCOCCAL (MENACTRA/MENVEO) Aged Out No longer eligible based on patient's age to complete this topic documented as of this encounter Medical Devices Implanted Type Area Geographic Information Systems Director Device Identifier Shelf Expiration Date Model / Serial / Lot [place] Arthrodesis Nail, Left Im[place]ed:Q[place]: 1 on 06[place]10/2012 [place] [facility] [place] - Non Human Left: Leg Upper ALFONZO 04/01/2016 [id number] S / / [id number] Screw Locking 1896-5035s - [id number] Implanted:Qty: 1 on 06/10/2012 [place] [facility] [place]: Leg Upper ALFONZO : TRAUMA 08/29/2013 5410-1427 S / / [id number] Screw Locking 1896-5030s - [id number] Implanted:Qty: 1 on 06/10/2012 [place] [facility] [place]FONZO : TRAUMA 04/29/2013 [id number] S / / [id number] Screw Threaded Lckg 5x42.5mm - [id number] Implanted:05/31 (Quantity not on file) Left: Leg Upper ALFONZO : ORTHOPAEDICS 12/31/2015 2150-3059 S / / [id number] Screw Locking 1896-5040s - [id number] Implanted:Qty: 1 on 06/10/2012 [place] [facility] [place]: Leg Upper ALFONZO : TRAUMA 07/30/2014 0359-1113 S / / [id number] Screw Compression 1825-0000s - [id number] Implanted:Qty: 1 on 06/10/2012 [place] [facility] [place]: Leg Upper ALFONZO : TRAUMA 12/30/2012 [id number] S / / [id number] Screw Shaft 1891-5045s - [id number] Implanted:Qty: 1 on 06/10/2012 [place] [facility] [place]: Leg Upper ALFONZO : ORTHOPAEDICS 12/31/2015 7981-0146 S / / [id number] Mesh Vicryl 12 X 12 Vkm-L - [id number] Implanted:Qty: 1 on 04/25/2020 by Dejuan Kaufman MD at [place] [facility] [place] N/A: Abdomen JNJ : [employer] 04/29/2024 VKM-L / / [id number] Mesh Soft [id number] - [id number] Implanted:Qty: 1 on 04/25/2020 by Dejuan Kaufman MD at [place] [facility] [place]/A: Abdomen CR BARD : DAVOL [id number] 07/27/2024 [id number] / / [id number] documented as of this encounter Visit Diagnoses Diagnosis Encounter for screening mammogram for malignant neoplasm of breast- Primary Other screening mammogram documented in this encounter Advance Directives * [...] Directives occurred with: Not Discussed Care Teams School Bus Inspector Relationship Specialty Start Date End Date Shazia Bee MD [address] [place] [address] [place] [phone] PCP - General Family Medicine 10/30/23 documented as of this encounter
--- OUTSIDE RECORDS SUMMARY | 2024-04-01 20:46 | External Medical Summary | Summary of Care ---
Author Name Unknown Organization [facility] Address [address] [place] [address] Phone [phone] Care Team Providers Care Grounds Foreman Name Role Phone Shazia Bee MD Primary Care Provide r Reason for Visit * Auth/Cert Specialty Diagnoses / Procedures Referred By Contdoug t Referred To Contact Diagnoses History of colon polyps Blood in stool History of colon polyps [Z86.0100] Blood in stool [K92.1] Procedures COLONOSCOPY, DIAGNOSTIC (RECTUM) COLONOSCOPY FLEXIBLE PROXIMAL DIAGNOSTIC Sixto Cedillo MD [address] [place] [address] Phone: tel: fax: [facility]O [facility], Endoscopy Room [facility] [address] [place] [address] Phone: tel: Referral ID Status Reason Start Date Expiration Date Visits Re quested Visits Authorized [id number] Encounter Details Date Type Department Care Team (Latest Contact Info) Description 02/09/2024 9:59 AM EST - 02/09/2024 12:51 PM EST Hospital Encounter [facility], Endoscopy Room [facility] [address] [place] [id number] Lee Porras MD [address] [place] [address] Colonoscopy Discharge Disposition: Home - Self Care Allergies No known active allergiesdocumented as of this encounter (statuses as of 02/10/2024) Medications BLOOD PRESSURE CUFF MISCIndications:F all for [...] later than 6 PM) 270 Tablet 3 03/19/2 024 Active Potassium Chloride ER 10 MEQ Oral Capsule Extended ReleaseIndication s:Hypokalemia Take 1 Capsule by mouth in the morning and 1 Capsule before bedtime. 180 Capsule 1 Active Hydroxychloroquin e Sulfate 200 MG Oral Tablet (Plaquenil)Indica tions:Cutaneous lupus erythematosus 2 tablets each evening 180 Tablet 1 024 Active Sucralfate 1 GM Oral Tablet (Carafate) TAKE ONE TABLET BY MOUTH AT BEDTIME. may also take additionally up to 4 times daily if needed for nausea, epigastric pain 360 Tablet 024 Active Trulance 3 MG Oral Tablet [...] DAILY IN THE EVENING 90 Tablet 1 Active Hydrocortisone 5 MG Oral Tablet (Cortef)Indicatio ns:History of adrenal insufficiency 2 tab in the morning, and 1 tab around 2 pm, triple dose during illness, MDD 9 tabs 270 Tablet 3 Active Baclofen 20 MG Oral TabletIndications :Lumbar degenerative disc disease TAKE ONE TABLET BY MOUTH IN THE MORNING, at noon, and before bedtime if needed for muscle spasms 90 Tablet Active Baclofen 20 MG Oral TabletIndications :Lumbar degenerative disc disease TAKE ONE TABLET BY MOUTH IN THE MORNING, at noon, and before bedtime if needed for muscle spasms 90 Tablet 024 2023 Discontinued documented as of this encounter (statuses as of 02/10/2024) Active Problems Problem Noted Date Diagnosed Date Necrotizing fasciitis 01/25/2024 GERD (gastroesophageal reflux disease) [...] as of this encounter (statuses as of 02/10/2024) Resolved Problems Problem Noted Date Diagnosed Date [...] [facility]- Keri Zaman ([phone]) [facility]- Cate Trinidad ([phone]) [facility] ([phone]) Diagnosis changed due to Research Module. Go to Snapshot for study details. Anxiety 04/26/2015 11/20/2016 Recurrent major depressive disorder 04/14/2014 06/21/2019 Adrenal insufficiency 12/12/20132016 [facility]EARCH OTHER*[id number] 11/02/2013 03/19/2016 Overview (03/19/2016): Patient has completed [...] as of this encounter (statuses as of 02/10/2024) Immunizations Name Administration Dates Next Due Pneumococcal Conjugate Vacci ne, 20-valent ([id number]) 11/15/2021 Pneumococcal Polysaccharide PPV23 (Pneumovax) 06/26/2008 Seasonal [...] Sign Reading Time Taken Comments Blood Pressure 107/62 02/09/2024 12:19 PM EST Pulse 66 02/09/2024 12:19 PM EST Temperature 36.1 C (97 F) 02/09/2024 12:19 PM EST Respiratory Rate 16 02/09/2024 12:19 PM EST Oxygen Saturation 94% 02/09/2024 12:19 PM EST Inhaled Oxygen Concentration - - Weight 98.4 kg (217 lb) 02/02/2024 3:02 PM EST Height 165.1 cm (5' 5") 02/02/2024 3:02 PM EST Body Mass Index 36.11 02/02/2024 3:02 PM EST documented in this encounter Functional Status * Are you deaf or do you have serious difficulty hearing? Answer Date of Assessment Author No 04/24/2020 5:38 PM EST Alexis Florez RN * Are you blind or do [...] Alexis Tran RN documented in this encounter H&P Notes * Lee Porras MD - 02/09/2024 11:29 AM EST Endoscopy Pre-Procedure Assessment Name: Tracy Benavides Date: 02/09/2024 Time: 11:36 AM Procedure(s): Colonoscopy; with Indication(s) of colon polyp surveillance Endoscopy Pre-Procedure Assessment: Prior to the procedure, the patient is identified. The patient's history, medications and allergieshave been reviewed. The patient is competent. The risks and benefits of the proposed procedure and the planned sedation have been discussed with the patient. All questions have been answered and informed consent for the procedure has been obtained. Prior to Admission medications Medication Sig Last Dose Discont. Baclofen 20 MG Oral Tablet TAKE ONE TABLET BY MOUTH IN THE MORNING, at noon, and before bedtime if needed for muscle spasms 02/09/2024 Hydrocortisone 5 MG Oral Tablet (Cortef) 2 tab in the morning, and 1 tab around 2 pm, triple dose during illness, MDD 9 tabs 02/09/2024 Morning rOPINIRole HCl 2 MG Oral Tablet (Requip) TAKE ONE TABLET BY MOUTH ONCE DAILY IN THE EVENING 02/08/2024 Bedtime Gabapentin 400 MG Oral Capsule (Neurontin) Take 1 Capsule by mouth in the morning and 1 Capsule at noon and 1 Capsule before bedtime. 02/09/2024 Meloxicam 7.5 MG Oral Tablet (Mobic) Take 1 Tablet by mouth in the morning and 1 Tablet before bedtime. for pain.. 02/09/2024 DULoxetine HCl 60 MG Oral Capsule Delayed Release Particles (Cymbalta) Past Month Wegovy 0.5 MG/0.5ML Subcutaneous Solution Auto-injector (Semaglutide-Weight Management) Inject 0.5 mg under the skin once a week. 01/26/2024 Pantoprazole Sodium 40 MG Oral Tablet Delayed Release (Protonix) Take 1 Tablet by mouth in the morning and 1 Tablet before bedtime. Do not crush, split or chew the tablet. 02/09/2024 Atorvastatin Calcium 40 MG Oral Tablet (Lipitor) TAKE ONE TABLET BY MOUTH IN THE MORNING 02/09/2024 Furosemide 40 MG Oral Tablet (Lasix) TAKE ONE TABLET BY MOUTH DAILY NEEDED for swelling Past Month Trulance 3 MG Oral Tablet (Plecanatide) Take 3 mg by mouth daily. 02/08/2024 Sucralfate 1 GM Oral Tablet (Carafate) TAKE ONE TABLET BY MOUTH AT BEDTIME. may also take additionally up to 4 times daily if needed for nausea, epigastric pain 02/08/2024 Bedtime Hydroxychloroquine Sulfate 200 MG Oral Tablet (Plaquenil) 2 tablets each evening 02/08/2024 Bedtime Potassium Chloride ER 10 MEQ Oral Capsule Extended Release Take 1 Capsule by mouth in the morning and 1 Capsule before bedtime. Past Month Midodrine HCl 10 MG Oral Tablet (Proamatine) Take one tablet shortly before or upon rising in the morning, midday, and late afternoon (not later than 6 PM) 02/09/2024 at 5:30 AM Ondansetron 4 MG Oral Tablet Disintegrating Place 1 Tablet on tongue every 8 hours as needed for Nausea or Vomiting. dissolve on tongue. 02/09/2024 Mirtazapine 7.5 MG Oral Tablet (Remeron) Take 1 Tablet by mouth at bedtime. 02/08/2024 Bedtime traZODone HCl 100 MG Oral Tablet (Desyrel) Take 2 tablets for the first week and then reduce to just 1 tablet at bedtime. Patient taking differently: Take 2 Tablets by mouth at bedtime. Take 2 tablets for the first week and then reduce to just 1 tablet at bedtime. 02/08/2024 Bedtime hydrOXYzine HCl 25 MG Oral Tablet TAKE ONE TABLET BY MOUTH IN THE MORNING, at noon, in the evening,and before bedtime if needed for itching or anxiety Past Week Aspirin EC 81 MG Oral Tablet Delayed Release Take 1 Tablet by mouth in the morning. Past Week Pramoxine HCl 1 % External Lotion Apply to back twice daily as needed (please provide lotion wand, pt lives alone) Past Month Iron 325 (65 Fe) MG Oral Tablet Take 1 Tablet by mouth at bedtime. Past Month Magnesium 500 MG Oral Tablet Take 1 Tablet by mouth in the morning. Past Month calcium-vit D 500mg-200 units per tab 500-200 MG-UNIT per tablet Take 2 Tablets by mouth every morning. Past Month CYANOCOBALAMIN (VITAMIN B-12) 100 MCG Tablet Take 1 Tablet by mouth in the morning. Past Month FOLIC ACID 800 MCG PO TABS Take 1 Tablet by mouth in the morning. Past Month BLOOD PRESSURE CUFF MISC for home BP monitoring Review of patient's allergies indicates: No Known Allergies BP 133/69 | Pulse 76 | Temp 36.9 C (98.5 F) (Tympanic) | Resp 17 | Ht 1.651 m (5' 5") | Wt 98.4kg (217 lb) | SpO2 98% | BMI 36.11 kg/m | BSA 2.12 m Physical Exam: Mental Status Examination: alert and oriented. Airway Examination: normal oropharyngeal airway and neck mobility. Respiratory Examination: clear to auscultation. CV Examination: normal. ASA Grade: III - A patient with severe systemic disease. Abdomen: negative This patient has undergone a preprocedural evaluation. A determination has been made to proceed with the planned procedure under [facility] procedural guidelines and the [facility] Non-Emergent, Elective Medical Services and Treatment Recommendations (published on 06-07-19). The community and hospital prevalence of COVID-19 has been discussed as well as this patient's specific risks associated with SARS-CoV-19 infection. Based upon the clinical acuity and patient-specific care considerations, this procedure is deemed a Tier II - Intermediate acuity treatment or service with either progression or the threat of progressive disease related to the delay in treatment. Not providing the service has the potential for increasing morbidity or mortality. After reviewing the risks and benefits, the patient is deemed in satisfactory condition to undergo the procedure. The anesthesia plan is to use general anesthesia. Lee Porras MD 02/09/2024 documented in this encounter Procedure Notes * Shazia Bee MD - 02/09/2024 11:47 AM ESTAssociated Order(s): COLONOSCOPY [facility] Patient Name: Tracy Benavides Procedure Date: 02/09/2024 11:47 AM Date of : 1965 Admit Type: Outpatient Note Status: Finalized Date of : 1965 Admit Type: Outpatient Age: 58 Room: Endo 3 Gender: Female Note Status: Finalized Procedure: Colonoscopy Indications: Rectal bleeding Providers: Lee Porras MD (Doctor) Referring MD: Shazia Bee MD (Referring MD) Medicines: See the Anesthesia note for documentation of the administered medications Complications: No immediate complications. Procedure: Pre-Anesthesia Assessment: - After reviewing the risks and benefits, the patient was deemed in satisfactory condition to undergo the procedure. - The heart rate, respiratory rate, oxygen saturations, blood pressure, adequacy of pulmonary ventilation, and response to care were monitored throughout the procedure. - ASA Grade Assessment: III - A patient with severe systemic disease. After I obtained informed consent, the scope was passed under direct vision. All instruments were visually inspected immediately before and after removal from the patient to ensure they are fully intact. Throughout the procedure, the patient's blood pressure, pulse, and oxygen saturations were monitored continuously. The [id number] Colonoscope ([id number]) was introduced through the anus and advanced to the cecum, identified by appendiceal orifice and ileocecal valve. The colonoscopy was performed without difficulty. The patient tolerated the procedure well. The quality of the bowel preparation was fair to poor. The quality of the bowel preparation was evaluated using the BBPS (Hardin Bowel Preparation Scale) with scores of: Right Colon = 1 (portion of mucosa seen, but other areas not well seen due to staining, residual stool and/or opaque liquid), Transverse Colon = 2 (minor amount of residual staining, small fragments of stool and/or opaque liquid, but mucosa seen well) and Left Colon = 2 (minor amount of residual staining, small fragments of stool and/or opaque liquid, but mucosa seen well). The total BBPS score equals 5. Findings & Specimens: The perianal and digital rectal examinations was significant for skin tags. There was evidence of a prior end-to-side colo-colonic anastomosis in the sigmoid colon. This was patent and was characterized by healthy appearing mucosa. The anastomosis was traversed. On rectal retroflexion, there were large hemorrhoids. There was prolapse change, with an erosion atthe dentate line. The exam was otherwise without abnormality, but was limited by prep quality. Impression: Rectal bleeding likely related to hemorrhoids. Otherwise unremarkable post surgical exam, but limited. Recommendation: - Discharge patient to home. - Repeat colonoscopy with more extensive laxative prep. Lee Porras MD 02/09/2024 12:15:07 PM This report has been signed electronically. documented in this encounter Nursing Notes * Em Paz RN - 02/09/2024 12:04 PM EST See anesthesia record for medication administered during procedure. Em Paz RN Pre cleaning of scope at the bedside started by support service tech. Pt tolerated her colonoscopy well. Abdominal pressure used during the procedure to assist with advancement of the scope under the direction of Dr. Porras, pt tolerated this well also. Escorted to the PACU lying quietly on her left side. * Christel Page RN - 02/09/2024 12:04 PM EST Patient transferred to post endo s/p colonoscopy. Patient awake Respirations are even and unlabored on room air. NSR in the 60s on the monitor. Abdomen soft and non distended. Vital signs stable. * Arabella Lozano RN - 02/09/2024 10:52 AM EST Pt arrived and prepped for GI procedure. Given opportunity to ask questions. No concerns or complaints at this time. Pt ready for procedure and call light in reach. The following pt discharge instructions reviewed with pt prior to prodedure: No driving today. No alcohol today. No signing of legal documents. Rest as much as possible today and can return to normal activities tomorrow. No operating any heavy equipment today. Diet as tolerated. Pt verbalized understanding. documented in this encounter Plan of Treatment Upcoming Encounters Date Type Department Care Team (Late st Contact Info) Description 04/27/2024 1:40 PM EST Office Visit Family Medicine [address] [place] [address] Arlet Groves MD [address] [place] [address] [place] [phone] 05/24/2024 9:00 AM EDT Office Visit Cardiology [address] [place] [address] Quinn Uriostegui PA-Mason [address] [place] [address] 06/20/2024 8:40 AM EDT Office Visit Neurology [facility] [place] [address] [facility] [place] [address] Cesar Palma MD [address] [place] [address] 10/18/2024 12:30 PM EDT Imaging Radiology [address] [place] [address] 01/30/2025 1:20 PM EST Office Visit Rheumatology [address] [place] [address] Isidro Phillips MD [facility] [place] [address] Scheduled Orders Name Type Priority Associated Diagnoses Orde r Schedule GLUCOSE METER, POINT OF CARE (COMMUNICATION ORDER) Point of Care Testing Routine As Needed until discontinued starting 02/09/2024 Health Maintenance Due Date Last Done Comments COVID-19 Vaccine (#1) 1970 Hepatitis B Vaccine (1 of 3 - 19+ 3-dose series) 1984 Fecal Occult Blood Test 2010 Sigmoidoscopy 2010 Cologuard 06/02/2021 06/02/2018 Mammogram 10/14/2024 10/15/2023, 10/01, 08/30/2021, Additional history exists DISCUSS TOBACCO CESSATION (REFER TO SMARTSET #3291) 01/24/2025 01/25/2024 (Discussed) Depression Monitoring 01/24/2025 01/25/2024 Diabetes Screening 01/19/2027 01/20/2024, 0 08/21/2023, 06/22/2023, Additional history exists Colonoscopy 02/08/2027 02/09/2024, 04/03, 04/24/2020 Colorectal Cancer Screening 02/08/2027 DTap/Tdap Vaccines (3 [...] this encounter Medical Devices Implanted Type Area Flooring Machine Feeder Device Identifier Shelf Expiration Date Model / Serial / Lot Alfonzo Arthrodesis Nail, Left Implanted:Qty: 1 on 06/10/2012 at OR [facility] [place] Tissue - Non Human Left: Leg Upper ALFONZO 04/01/2016 [id number] S / / [id number] Screw Locking 1896-5035s - [id number] Implanted:Qty: 1 on 06/10/2012 at OR [facility] [place] Left: Leg Upper ALFONZO : TRAUMA 08/29/2013 [id number] S / / [id number] Screw Locking 1896-5030s - [id number] Implanted:Qty: 1 on 06/10/2012 at OR [facility] [place] ALFONZO : TRAUMA 04/29/2013 0643-9714 S / / [id number] Screw Threaded Lckg 5x42.5mm - [id number] Implanted:05/31 (Quantity not on file) Left: Leg Upper ALFONZO : ORTHOPAEDICS 12/31/2015 [id number] S / / [id number] Screw Locking 1896-5040s - [id number] Implanted:Qty: 1 on 06/10/2012 at OR [facility] [place] Left: Leg Upper ALFONZO : TRAUMA 07/30/2014 9148-8114 S / / [id number] Screw Compression 1825-0000s - [id number] Implanted:Qty: 1 on 06/10/2012 at [facility] Left: Leg Upper ALFONZO : TRAUMA 12/30/2012 5105-9342 S / / [id number] Screw Shaft 1891-5045s - [id number] Implanted:Qty: 1 on 06/10/2012 at OR [facility] [place] Left: Leg Upper ALFONZO : ORTHOPAEDICS 12/31/2015 0616-8260 S / / [id number] Mesh Vicryl 12 X 12 Vkm-L - [id number] Implanted:Qty: 1 on 04/25/2020 by Dejuan Kaufman MD at OR [facility] [place] N/A: Abdomen JNJ : [employer] 04/29/2024 VKM-L / / [id number] Mesh Soft [id number] - [id number] Implanted:Qty: 1 on 04/25/2020 by Dejuan Kaufman MD at OR [facility] [place] N/A: Abdomen CR BARD : DAVOL [id number] 07/27/2024 [id number] / / [id number] documented as of this encounter Procedures Procedure Name Priority Date/Time Associated Diagnosis Comments COLONOSCOPY 02/09/2024 11:47 AM EST documented in this encounter Results * COLONOSCOPY (02/09/2024 11:47 AM EST) 02/09/2024 11:4 7 AM EST Narrative Procedure Note Shazia Bee MD - 02/09/2024 11:47 AM EST [facility] Patient Name: Tracy Benavides Procedure Date: 02/09/2024 11:47 AM Date of : 1965 Admit Type: Outpatient Note Status:Finalized Date of : 1965 Admit Type: Outpatient Age: 58 Room: Endo 3 Gender: Female Note Status: Finalized Procedure: Colonoscopy Indications: Rectal bleeding Providers: Lee Porras MD (Doctor) Referring MD: Shazia Bee MD (Referring MD) Medicines: See the Anesthesia note for documentation of theadministered medications Complications: No immediate complications. Procedure: Pre-Anesthesia Assessment: - After reviewing the risks and benefits, thepatient was deemed in satisfactory condition to undergo the procedure. - The heart rate, respiratory rate, oxygensaturations, blood pressure, adequacy of pulmonary ventilation, and response to care weremonitored throughout the procedure. - ASA Grade Assessment: III - A patient with severesystemic disease. After I obtained informed consent, the scope waspassed under direct vision. All instruments were visually inspected immediatelybefore and after removal from the patient to ensure they are fully intact. Throughout the procedure, the patient's bloodpressure, pulse, and oxygen saturations were monitored continuously. The [id number] ([id number]) was introduced through the anus and advanced to the cecum,identified by appendiceal orifice and ileocecal valve. The colonoscopy was performedwithout difficulty. The patient tolerated the procedure well. The quality of thebowel preparation was fair to poor. The quality of the bowel preparation was evaluatedusing the BBPS (Hardin Bowel Preparation Scale) with scores of: Right Colon = 1(portion of mucosa seen, but other areas not well seen due to staining, residual stooland/or opaque liquid), Transverse Colon = 2 (minor amount of residual staining, smallfragments of stool and/or opaque liquid, but mucosa seen well) and Left Colon = 2(minor amount of residual staining, small fragments of stool and/or opaque liquid, butmucosa seen well). The total BBPS score equals 5. Findings & Specimens: The perianal and digital rectal examinations was significant for skintags. There was evidence of a prior end-to-side colo-colonic anastomosis inthe sigmoid colon. This was patent and was characterized by healthy appearing mucosa. Theanastomosis was traversed. On rectal retroflexion, there were large hemorrhoids. There wasprolapse change, with an erosion at the dentate line. The exam was otherwise without abnormality, but was limited by prepquality. Impression: Rectal bleeding likely related to hemorrhoids.Otherwise unremarkable post surgical exam, but limited. Recommendation: - Discharge patient to home. - Repeat colonoscopy with more extensive laxativeprep. Lee Porras MD 02/09/2024 12:15:07 PM This report has been signed electronically. Shazia Bee MD [facility] Final Result documented in this encounter Administered Medications Inactive Administered Medications - up to 3 most recent administrations Medication Order MAR Action Action Date Dose Rate Site Acetaminophen (Tylenol) tab 650 mg 650 mg, Oral, PRN Pain, Mild, Starting on Thu02/09/24 at 1215, Until Thu02/09/24 at 1653, For 1 dose, Maximum of 4 grams (4000 mg) per day., Post-op Isolyte-S pH 7.4 infusion Intravenous, at 75 mL/hr, for Outpatient patient Plasma-LYTE 148, isolyte-S, and isolyte-S pH 7.4 are considered equivalent - including for MAR barcode scanning., CONTINUOUS, Starting on Thu02/09/24 at 1130, Until Thu02/09/24 at 1653, Pre-Op New Bag 02/09/2024 11:39 AM EST 50 mL/hr documented in this encounter Active and Recently Administered Medications Times are shown in EST. Continuous Medication Order 02/07/2024 02/08/2024 02/09/2024 Isolyte-S pH 7.4 infusion Intravenous, at 75 mL/hr, for Outpatient patient Plasma-LYTE 148, isolyte-S, and isolyte-S pH 7.4 are considered equivalent - including for MAR barcode scanning., CONTINUOUS, Starting on Thu02/09/24 at 1130, Until Thu02/09/24 at 1653, Pre-Op 1139 (New Bag - Prov ider: Stefany Atkinson CRNA)1205 (Anes Intra-Op Fluid - Provider: Stefany Atkinson CRNA) PRN Medication Order 02/07/2024 02/08/2024 02/09/2024 Acetaminophen (Tylenol) tab 650 mg 650 mg, Oral, PRN Pain, Mild, Starting on Thu02/09/24 at 1215, Until Thu02/09/24 at 1653, For 1 dose, Maximum of 4 grams (4000 mg) per day., Post-op documented in this encounter Advance Directives * [...] Directives occurred with: Not Discussed Care Teams Grounds Foreman Relationship Specialty Start Date End Date Shazia Bee MD [address] [place] [address] [place] [address] PCP - General Family Medicine 10/30/23 documented as of this encounter
--- OUTSIDE RECORDS SUMMARY | 2024-04-01 20:46 | External Medical Summary | Summary of Care ---
Author Name Unknown Organization [facility] Address [address] [facility] [address] Phone [phone] Care Team Providers Care Liquefaction Supervisor Name Role Phone Shazia Bee MD Primary Care Provide r Encounter Details Date Type Department Care Team (Late st Contact Info) Description 02/02/2024 Result Scan Unspecified Department Shazia Bee MD [address] [place] [address] [place] [phone] <No scans attached> Allergies No known active allergiesdocumented as of this encounter (statuses as of 02/09/2024) Medications BLOOD PRESSURE CUFF MISCIndications:F all for home BP monitoring 1 Kit 1 03/16/19 14 Suspended FOLIC ACID 800 MCG PO TABS Take 1 Tablet by mouth in the morning. 11/08/19 14 Suspended CYANOCOBALAMIN (VITAMIN B-12) 100 MCG Tablet Take 1 Tablet by mouth in the morning. Suspended calcium-vit D 500mg-200 units per tab 500-200 MG-UNIT per tablet Take 2 Tablets by mouth every morning. 10/20/19 20 Suspended Iron 325 (65 Fe) MG Oral Tablet Take 1 Tablet by mouth at bedtime. Suspended Magnesium 500 MG Oral Tablet Take 1 Tablet by mouth in the morning. Suspended Pramoxine HCl 1 % External LotionIndications :Cutaneous lupus erythematosus Apply to back twice daily as needed (please provide lotion wand, pt lives alone) 222 mL 2 12/13/19 22 Suspended Aspirin EC 81 MG Oral Tablet Delayed Release Take 1 Tablet by mouth in the morning. Suspended hydrOXYzine HCl 25 MG Oral Tablet TAKE ONE TABLET BY MOUTH IN THE MORNING, at noon, in the evening, and before bedtime if needed for itching or anxiety 40 Tablet 02/26/20 22 Suspended traZODone HCl 100 MG Oral Tablet (Desyrel)Indicati ons:Other insomnia Take 2 tablets for the first week and then reduce to just 1 tablet at bedtime. 30 Tablet 5 03/18/19 23 Suspended Additional Information Patient taking differently: 200 mg Oral HS, Take 2 tablets for the first week and then reduce to just 1 tablet at bedtime., Reported on 02/09/2024 Mirtazapine 7.5 MG Oral Tablet (Remeron) Take 1 Tablet by mouth at bedtime. 04/14/19 23 Suspended Ondansetron 4 MG Oral Tablet Disintegrating Place 1 Tablet on tongue every 8 hours as needed for Nausea or Vomiting. dissolve on tongue. 30 Tablet 5 05/07/19 23 Suspended Midodrine HCl 10 MG Oral Tablet (Proamatine)Indic ations:Orthostati c hypotension,Hypot ension, unspecified hypotension type Take one tablet shortly before or upon rising in the morning, midday, and late afternoon (not later than 6 PM) 270 Tablet 3 05/19/19 24 Suspended Potassium Chloride ER 10 MEQ Oral Capsule Extended ReleaseIndication s:Hypokalemia Take 1 Capsule by mouth in the morning and 1 Capsule before bedtime. 180 Capsule 1 06/18/19 24 Suspended Hydroxychloroquin e Sulfate 200 MG Oral Tablet (Plaquenil)Indica tions:Cutaneous lupus erythematosus 2 tablets each evening 180 Tablet 1 08/19/19 24 Suspended Sucralfate 1 GM Oral Tablet (Carafate) TAKE ONE TABLET BY MOUTH AT BEDTIME. may also take additionally up to 4 times daily if needed for nausea, epigastric pain 360 Tablet 11/22/19 24 Suspended Trulance 3 MG Oral Tablet (Plecanatide) Take 3 mg by mouth daily. 30 Tablet 3 11/23/19 24 Suspended Atorvastatin Calcium 40 MG Oral Tablet (Lipitor) TAKE ONE TABLET BY MOUTH IN THE MORNING 90 Tablet 2 01/04/20 24 Suspended Furosemide 40 MG Oral Tablet (Lasix)Indication s:Bilateral lower extremity edema TAKE ONE TABLET BY MOUTH DAILY NEEDED for swelling 90 Tablet 2 01/04/20 24 Suspended Pantoprazole Sodium 40 MG Oral Tablet Delayed Release (Protonix)Indicat ions:Nausea and vomiting, unspecified vomiting type Take 1 Tablet by mouth in the morning and 1 Tablet before bedtime. Do not crush, split or chew the tablet. 60 Tablet 5 01/18/20 24 Suspended Wegovy 0.5 MG/0.5ML Subcutaneous Solution Auto-injector (Semaglutide-Weig ht Management)Indica tions:Obesity (BMI 30-39.9) Inject 0.5 mg under the skin once a week. 2 mL 01/20/20 24 Suspended DULoxetine HCl 60 MG Oral Capsule Delayed Release Particles (Cymbalta) 12/26/19 24 Suspended Gabapentin 400 MG Oral Capsule (Neurontin)Indica tions:Spinal stenosis of lumbar region with neurogenic claudication Take 1 Capsule by mouth in the morning and 1 Capsule at noon and 1 Capsule before bedtime. 270 Capsule 3 01/25/20 24 Suspended Meloxicam 7.5 MG Oral Tablet (Mobic)Indication s:Degeneration of intervertebral disc of lumbar region with discogenic back pain and lower extremity pain,DDD (degenerative disc disease), cervical Take 1 Tablet by mouth in the morning and 1 Tablet before bedtime. for pain.. 180 Tablet 3 01/25/20 24 Suspended rOPINIRole HCl 2 MG Oral Tablet (Requip)Indicatio ns:RLS (restless legs syndrome) TAKE ONE TABLET BY MOUTH ONCE DAILY IN THE EVENING 90 Tablet 1 01/29/20 24 Suspended Hydrocortisone 5 MG Oral Tablet (Cortef)Indicatio ns:History of adrenal insufficiency 2 tab in the morning, and 1 tab around 2 pm, triple dose during illness, MDD 9 tabs 270 Tablet 3 01/29/20 24 Suspended Baclofen 20 MG Oral TabletIndications :Lumbar degenerative disc disease TAKE ONE TABLET BY MOUTH IN THE MORNING, at noon, and before bedtime if needed for muscle spasms 90 Tablet 02/03/20 24 Suspended documented as of this encounter (statuses as of 02/09/2024) Active Problems Problem Noted Date Diagnosed Date [...] as of this encounter (statuses as of 02/09/2024) Resolved Problems Problem Noted Date Diagnosed Date [...] [facility]- Keri Zaman ([phone]) [facility]- Cate Trinidad ([phone]) [facility]- Julia Villafana ([phone]) Diagnosis changed due to Research Module. Go to Snapshot for study details. Anxiety 04/26/2015 11/20/2016 Recurrent major depressive disorder 04/14/2014 06/21/2019 Adrenal insufficiency 12/12/20132016 [employer] [facility] RESEARCH OTHER*[id number] 11/02/2013 03/19/2016 Overview (03/19/2016): Patient has completed [...] as of this encounter (statuses as of 02/09/2024) Immunizations Name Administration Dates Next Due Pneumococcal Conjugate Vacci ne, 20-valent ([id number]) 11/15/2021 Pneumococcal Polysaccharide PPV23 (Pneumovax) 06/26/2008 Seasonal [...] Alexis Tran RN documented in this encounter Plan of Treatment Upcoming Encounters Date Type Department Care Team (Late st Contact Info) Description 04/27/2024 1:40 PM EST Office Visit Family Medicine [address] [place] [phone] Arlet Groves MD [address] [place] [address] [place] [phone] 05/24/2024 9:00 AM EDT Office Visit Cardiology [address] [place] [address] Quinn Uriostegui PA-C [address] [place] [address] 06/20/2024 8:40 AM EDT Office Visit Neurology [facility] [address] [place] [address] Cesar Palma MD [address] [place] [address] 10/18/2024 12:30 PM EDT Imaging Radiology [address] [place] [address] 01/30/2025 1:20 PM EST Office Visit Rheumatology [facility] [address] [place] [address] Isidro Phillips MD [address] [place] [address] Scheduled Procedures Name Priority Associated Diagnoses Date/Ti me COLONOSCOPY FLEXIBLE PROXIMAL DIAGNOSTIC Recall History of colon polyps Blood in stool 02/09/2024 11:33 AM EST Health Maintenance Due Date Last Done Comments COVID-19 Vaccine (#1) 1970 Hepatitis B Vaccine (1 of 3 - 19+ 3-dose series) 1984 Fecal Occult Blood Test 2010 Sigmoidoscopy 2010 Cologuard 06/02/2021 06/02/2018 Colonoscopy 04/24/2023 04/24/2020, 04/24/2020 Colorectal Cancer Screening 04/24/2023 Mammogram 10/14/2024 10/15/2023, 10/01, 08/30/2021, Additional history exists DISCUSS TOBACCO CESSATION (REFER TO SMARTSET #1441) 01/24/2025 01/25/2024 (Discussed) Depression Monitoring 01/24/2025 01/25/2024 Diabetes Screening 01/19/2027 01/20/2024, 0 08/21/2023, 06/22/2023, Additional history exists DTap/Tdap Vaccines (3 - Td or Tdap) 06/08/2028 06/08/2018, 08/27/2007 Lipid Panel 10/07/2028 10/08/2023, 03/04/2022, 03/25/2021, Additional history exists Zoster Vaccines Completed [...] this encounter Medical Devices Implanted Type Area Detailer Furniture Device Identifier Shelf Expiration Date Model / Serial / Lot [place] Arthrodesis Nail, Left Implanted:Qty: 1 on 06/10/2012 at [place] [facility] Tissue - Non Human Left: Leg Upper ALFONZO 04/01/2016 [id number] S / / [id number] Screw Locking 1896-5035s - [id number] Implanted:Qty: 1 on 06/10/2012 at [place] [facility] Left: Leg Upper ALFONZO : TRAUMA 08/29/2013 9101-1629 S / / [id number] Screw Locking 1896-5030s - [id number] Implanted:Qty: 1 on 06/10/2012 at [place] [facility] ALFONZO : TRAUMA 04/29/2013 6945-2648 S / / [id number] Screw Threaded Lckg 5x42.5mm - [id number] Implanted:05/31 (Quantity not on file) Left: Leg Upper ALFONZO : ORTHOPAEDICS 12/31/2015 5277-2205 S / / [id number] Screw Locking 1896-5040s - [id number] Implanted:Qty: 1 on 06/10/2012 at [facility] Left: Leg Upper ALFONZO : TRAUMA 07/30/2014 3328-4464 S / / [id number] Screw Compression 1825-0000s - [id number] Implanted:Qty: 1 on 06/10/2012 at [place] [facility] Left: Leg Upper ALFONZO : TRAUMA 12/30/2012 1851-7525 S / / [id number] Screw Shaft [id number] - [id number] Implanted:Qty: 1 on 06/10/2012 at OR [facility] Left: Leg Upper ALFONZO : ORTHOPAEDICS 12/31/2015 6314-7249 S / / [id number] Mesh Vicryl 12 X 12 Vkm-L - [id number] Implanted:Qty: 1 on 04/25/2020 by Dejuan Kaufman MD at [place] [facility] N/A: Abdomen JNJ : [employer] 04/29/2024 VKM-L / / [id number] Mesh Soft 52q59ok - [id number] Implanted:Qty: 1 on 04/25/2020 by Dejuan Kaufman MD at [place] [facility] N/A: Abdomen CR BARD : DAVOL [id number] 07/27/2024 [id number] / / [id number] documented as of this encounter Procedures Procedure Name Priority Date/Time Associated Diagnosis Comments PATHOLOGY SCANNED RESULT 02/02/2024 documented in this encounter Results * PATHOLOGY SCANNED RESULT (02/02/2024) 02/02/2024 Shazia Bee MD PATHOLOGY Final Result documented in this encounter Advance Directives * [...] Directives occurred with: Not Discussed Care Teams Liquefaction Supervisor Relationship Specialty Start Date End Date Shazia Bee MD [address] [place] [address] [place] [phone] PCP - General Family Medicine 10/30/23 documented as of this encounter
--- OUTSIDE RECORDS SUMMARY | 2024-04-01 20:46 | External Medical Summary | Summary of Care ---
Author Name Unknown Organization [facility] Address [address] [place] [address] Phone [phone] Care Team Providers Care Geospatial Technologist Name Role Phone Shazia Bee MD Primary Care Provide r Reason for Visit * Reason Onset Date Comments Medication Refill 01/29/2024 Encounter Details Date Type Department Care Team (Late st Contact Info) Description 01/29/2024 Refill [facility] [address] [place], [place] [phone] Joan López MD [address] [place], [place] [phone] History of adrenal insufficiency Allergies No known active allergiesdocumented as of this encounter (statuses as of 02/01/2024) Medications BLOOD PRESSURE CUFF MISCIndications:F all for [...] just 1 tablet at bedtime., Reported on 01/25/2024 Mirtazapine 7.5 MG Oral Tablet (Remeron) Take [...] mouth daily. 30 Tablet 3 024 Active Baclofen 20 MG Oral TabletIndications :Lumbar degenerative disc disease TAKE ONE TABLET BY MOUTH IN THE MORNING, at noon, and before bedtime if needed for muscle spasms 90 Tablet Active Atorvastatin Calcium 40 MG Oral Tablet (Lipitor) TAKE ONE TABLET BY MOUTH IN THE MORNING 90 Tablet 2 Active Furosemide 40 MG Oral Tablet (Lasix)Indication [...] Active Wegovy 0.5 MG/0.5ML Subcutaneous Solution Auto-injector (SemaglutideBactest Management)Indica tions:Obesity (BMI 30-39.9) Inject 0.5 mg [...] before bedtime. for pain.. 180 Tablet 3 Active Hydrocortisone 5 MG Oral Tablet (Cortef)Indicatio ns:History of adrenal insufficiency 2 tab in the morning, and 1 tab around 2 pm, triple dose during illness, MDD 9 tabs 270 Tablet 3 Active Hydrocortisone 5 MG Oral Tablet (Cortef)Indicatio ns:History of adrenal insufficiency 2 tab in the morning, and 1 tab around 2 pm, triple dose during illness, MDD 9 tabs 270 Tablet 3 024 2023 Discontinued(R efill) rOPINIRole HCl 2 MG Oral Tablet (Requip)Indicatio ns:RLS (restless legs syndrome) TAKE ONE TABLET BY MOUTH ONCE DAILY IN THE EVENING 90 Tablet 024 2023 Discontinued documented as of this encounter (statuses as of 02/01/2024) Active Problems Problem Noted Date Diagnosed Date [...] as of this encounter (statuses as of 02/01/2024) Resolved Problems Problem Noted Date Diagnosed Date [...] [facility]- Keri Zaman ([phone]) [facility]- Cate Trinidad ([phone]) [facility]- Juliasole Villafana ([phone]) Diagnosis changed due to Research Module. Go to Snapshot for study details. Anxiety 04/26/2015 11/20/2016 Recurrent major depressive disorder 04/14/2014 06/21/2019 Adrenal insufficiency 12/12/20132016 [employer] [facility] RESEARCH OTHER*[id number] 11/02/2013 03/19/2016 Overview (03/19/2016): Patient has completed [...] as of this encounter (statuses as of 02/01/2024) Immunizations Name Administration Dates Next Due Pneumococcal Conjugate Vacci ne, 20-valent ([id number]) 11/15/2021 Pneumococcal Polysaccharide PPV23 (Pneumovax) 06/26/2008 Seasonal [...] encounter Miscellaneous Notes * Telephone Encounter - Franchesca Roe DO - 01/29/2024 2:18 PM ESTSigned Prescriptions: Disp Refills Hydrocortisone 5 MG Oral Tablet (Cortef) 270 Ta*3 Si tab in the morning, and 1 tab around 2 pm, triple dose during illness, MDD 9 tabs Authorizing Provider: FRANCHESCA ROE * Telephone Encounter - Olivia Lynch LPN - 01/29/2024 12:56 PM ESTPending Prescriptions: Disp Refills Hydrocortisone 5 MG Oral Tablet (Cortef) 270 Ta*3 Si tab in the morning, and 1 tab around 2 pm, triple dose during illness, MDD 9 tabs * Telephone Encounter - Olivia Lynch LPN - 01/29/2024 12:54 PM EST Please contact patient to schedule a follow up visit. Thank you! Pending Prescriptions: Disp Refills Hydrocortisone 5 MG Oral Tablet (Cortef) 270 Ta*3 Si tab in the morning, and 1 tab around 2 pm, triple dose during illness, MDD 9 tabs 05/01/2023 (in office), Visit date not found (telemedicine) Last date the medication was ordered: 05/15/2023 Pharmacy: [id number] [address] [facility] * Telephone Encounter - Saadia Eldridge OSA - 01/29/2024 12:16 PM ESTPending Prescriptions: Disp Refills Hydrocortisone 5 MG Oral Tablet (Cortef) 270 Ta*3 Si tab inthe morning, and 1 tab around 2 pm, triple dose during illness, MDD 9 tabs documented in this encounter Plan of Treatment Upcoming Encounters Date Type Department Care Team (Late st Contact Info) Description 04/27/2024 1:40 PM EST Office Visit Family Medicine [address] [place] [phone] Arlet Groves MD [address] [place] [address] [place] [phone] 05/24/2024 9:00 AM EDT Office Visit Cardiology [address] [place] [address] Quinn Uriostegui PA-C [address] [place] [address] 06/20/2024 8:40 AM EDT Office Visit Neurology [facility] [place] [address] [facility] [place] [address] Cesar Palma MD [address] [place] [address] 10/18/2024 12:30 PM EDT Imaging Radiology [address] [place] [address] 01/30/2025 1:20 PM EST Office Visit Rheumatology [address] [place] [address] Franchesca Phillips MD [facility] [place] [address] Scheduled Procedures Name Priority Associated Diagnoses Date/Ti me COLONOSCOPY FLEXIBLE PROXIMAL DIAGNOSTIC Recall History of colon polyps Health Maintenance Due Date Last Done Comments [...] this encounter Medical Devices Implanted Type Area Seam Feller Device Identifier Shelf Expiration Date Model / Serial / Lot Alfonzo Arthrodesis Nail, Left Implanted:Qty: 1 on 06/10/2012 at [place] [facility] [place] Tissue - Non Human Left: Leg Upper ALFONZO 04/01/2016 [id number] S / / [id number] Screw Locking 1896-7888s - [id number] Implanted:Qty: 1 on 06/10/2012 at OR [facility] [place] Left: Leg Upper ALFONZO : TRAUMA 08/29/2013 0680-2586 S / / [id number] Screw Locking 1896-5030s - [id number] Implanted:Qty: 1 on 06/10/2012 at OR [facility] [place] ALFONZO : TRAUMA 04/29/2013 3367-9485 S / / [id number] Screw Threaded Lckg 5x42.5mm - [id number] Implanted:05/31 (Quantity not on file) Left: Leg Upper ALFONZO : ORTHOPAEDICS 12/31/2015 4603-3187 S / / [id number] Screw Locking 1896-5040s - [id number] Implanted:Qty: 1 on 06/10/2012 at OR [facility] [place] Left: Leg Upper ALFONZO : TRAUMA 07/30/2014 3794-7383 S / / [id number] Screw Compression 1825-0000s - [id number] Implanted:Qty: 1 on 06/10/2012 at OR [facility] [place] Left: Leg Upper ALFONZO : TRAUMA 12/30/2012 8750-0341 S / / [id number] Screw Shaft 1891-5045s - [id number] Implanted:Qty: 1 on 06/10/2012 at OR [facility] [place] Left: Leg Upper ALFONZO : ORTHOPAEDICS 12/31/2015 7968-3730 S / / [id number] Mesh Vicryl 12 X 12 Vkm-L - [id number] Implanted:Qty: 1 on 04/25/2020 by Dejuan Kaufman MD at OR [facility] [place] N/A: Abdomen JNJ : [employer] 04/29/2024 VKM-L / / [id number] Mesh Soft [id number] - [id number] Implanted:Qty: 1 on 04/25/2020 by Dejuan Kaufman MD at [facility] N/A: Abdomen CR BARD : DAVOL [id number] 07/27/2024 [id number] / / [id number] documented as of this encounter Visit Diagnoses Diagnosis History of adrenal insufficiency Personal history of other endocrine, metabolic, and immunity disorders documented in this encounter Advance Directives * [...] Directives occurred with: Not Discussed Care Teams Geospatial Technologist Relationship Specialty Start Date End Date Shazia Bee MD [address] [place] [address] [place] [phone] PCP - General Family Medicine 10/30/23 documented as of this encounter
--- OUTSIDE RECORDS SUMMARY | 2024-04-01 20:46 | External Medical Summary | Summary of Care ---
Author Name Unknown Organization [facility] Address [address] [place] [address] Phone [phone] Care Team Providers Care Curtain Hemmer Automatic Name Role Phone Shazia Bee MD Primary Care Provide r Reason for Visit * Reason Comments eRx-Medication Refill Encounter Details Date Type Department Care Team (Late st Contact Info) Description 02/02/2024 Refill Family Medicine [address] [phone] Shazia Bee MD [address] [place], [place] [address] [address] Lumbar degenerative disc disease Allergies No known active allergiesdocumented as of this encounter (statuses as of 02/03/2024) Medications BLOOD PRESSURE CUFF MISCIndications:F all for [...] twice daily as needed (please provide lotion gato, pt lives alone) 222 mL 2 022 [...] just 1 tablet at bedtime., Reported on 02/02/2024 Mirtazapine 7.5 MG Oral Tablet (Remeron) Take [...] DAILY NEEDED for swelling 90 Tablet 2 Active Pantoprazole Sodium 40 MG Oral Tablet [...] bedtime. for pain.. 180 Tablet 3 Active rOPINIRole HCl 2 MG Oral Tablet [...] for muscle spasms 90 Tablet 024 Active Baclofen 20 MG Oral TabletIndications :Lumbar degenerative disc disease TAKE ONE TABLET BY MOUTH IN THE MORNING, at noon, and before bedtime if needed for muscle spasms 90 Tablet 024 2023 Discontinued documented as of this encounter (statuses as of 02/03/2024) Active Problems Problem Noted Date Diagnosed Date [...] as of this encounter (statuses as of 02/03/2024) Resolved Problems Problem Noted Date Diagnosed Date [...] [facility]- Keri Zaman ([phone]) [facility]- Cate Trinidad ([phone]) [facility] Julia Villafana ([phone]) Diagnosis changed due to Research Module. Go to Snapshot for study details. Anxiety 04/26/2015 11/20/2016 Recurrent major depressive disorder 04/14/2014 06/21/2019 Adrenal insufficiency 12/12/20132016 FORCE TJR RESEARCH OTHER*[id number] 11/02/2013 03/19/2016 Overview (03/19/2016): Patient has completed [...] as of this encounter (statuses as of 02/03/2024) Immunizations Name Administration Dates Next Due Pneumococcal Conjugate Vacci ne, 20-valent ([id number]) 11/15/2021 Pneumococcal Polysaccharide PPV23 (Pneumovax) 06/26/2008 Seasonal [...] Telephone Encounter - Shazia Bee MD - 02/03/2024 12:46 PM EST Signed Prescriptions: Disp Refills Baclofen 20 MG Oral Tablet 90 Tab*0 Sig: TAKE ONE TABLET BY MOUTH IN THE MORNING, at noon, and before bedtime if needed for muscle spasms Authorizing Provider: SHAZIA BEE * Telephone Encounter - Paulino Shaw [facility] - 02/03/2024 12:37 PM EST Pending Prescriptions: Disp Refills Baclofen 20 MG Oral Tablet [Pharmacy Med N*90 Tab*0 Sig: TAKE ONE TABLET BY MOUTH IN THE MORNING, at noon, and before bedtime if needed for muscle spasms * Telephone Encounter - Paulino Shaw [facility] - 02/03/2024 12:36 PM EST Refill pharmacists currently not authorized to approve refills for this class of medication per refill protocol. Please approve if appropriate. Pending Prescriptions: Disp Refills Baclofen 20 MG Oral Tablet [Pharmacy Med N*90 Tab*0 Sig: TAKE ONE TABLET BY MOUTH IN THE MORNING, at noon, and before bedtime if needed for muscle spasms 01/25/2024 (in office), Visit date not found (telemedicine) 04/27/2024 If no future appointments scheduled, and last appointment is greater than a year ago, please schedule patient for a follow-up appointment Last date the medication was ordered: 01/04/2024 Pharmacy: [id number] [address] [facility] Is this request for a controlled substance? no Patient Phone Numbers Labs: Lab Results Component [...] 01:35 PM HGBA1C 5.4 11/02/2013 12:36 PM Thank You, Paulino Shaw, Pharm-D Clinical Pharmacist Telepharmacy 02/03/2024, 12:36 PM documented in this encounter Plan of Treatment Upcoming Encounters Date Type Department Care Team (Latest Contact Info) Description 02/09/2024 11:15 AM EST Hospital Encounter ENDO OSSC, Endoscopy Room [facility] [address] [place] [phone] Lee Porras MD [address] [place] [address] 02/09/2024 11:15 AM EST - 02/09/2024 11:45 AM EST Surgery ENDO O[facility]C, Endoscopy Room [facility] [address] [phone] Lee Porras MD [address] [place] [address] COLONOSCOPY FLEXIBLE PROXIMAL DIAGNOSTIC 04/27/2024 1:40 PM EST Office Visit Family Medicine [address] [place] [phone] Arlet Groves MD [address] [place] [address] [place] [phone] 05/24/2024 9:00 AM EDT Office Visit Cardiology [address] [place] [address] Quinn Uriostegui PA-C [address] [place] [address] 06/20/2024 8:40 AM EDT Office Visit Neurology [facility] [place] [address] [place] [address] Cesar Palma MD [address] [place], [place] [id number] 10/18/2024 12:30 PM EDT Imaging Radiology [address] [place] [address] 01/30/2025 1:20 PM EST Office Visit Rheumatology [address] [place] [address] Isidro Phillips MD [address] [place] [address] [place] [address] Scheduled Procedures Name Priority Associated Diagnoses Date/Ti me COLONOSCOPY FLEXIBLE PROXIMAL DIAGNOSTIC Recall History of colon polyps Blood in stool 02/09/2024 11:15 AM EST Health Maintenance Due Date Last Done Comments COVID-19 Vaccine (#1) 1970 Hepatitis B Vaccine (1 of 3 - 19+ 3-dose series) 1984 Fecal Occult Blood Test 2010 Sigmoidoscopy 2010 Cologuard 06/02/2021 06/02/2018 Colonoscopy 04/24/2023 04/24/2020, 04/24/2020 Colorectal Cancer Screening 04/24/2023 Mammogram 10/14/2024 10/15/2023, 10/01, 08/30/2021, Additional history exists DISCUSS TOBACCO CESSATION (REFER TO SMARTSET #2525) 01/24/2025 01/25/2024 (Discussed) Depression Monitoring 01/24/2025 01/25/2024 [...] this encounter Medical Devices Implanted Type Area Environmental Services Attendant Device Identifier Shelf Expiration Date Model / Serial / Lot Alfonzo Arthrodesis Nail, Left Implanted:Qty: 1 on 06/10/2012 at OR [facility] Tissue - Non Human Left: Leg Upper ALFONZO 04/01/2016 6121-5925 S / / [id number] Screw Locking 1896-5035s - [id number] Implanted:Qty: 1 on 06/10/2012 at OR [facility] Left: Leg Upper ALFONZO : TRAUMA 08/29/2013 2984-1083 S / / [id number] Screw Locking 1896-5030s - [id number] Implanted:Qty: 1 on 06/10/2012 at OR [facility] ALFONZO : TRAUMA 04/29/2013 1609-4596 S / / [id number] Screw Threaded Lckg 5x42.5mm - [id number] Implanted:05/31 (Quantity not on file) Left: Leg Upper ALFONZO : ORTHOPAEDICS 12/31/2015 5078-4830 S / / [id number] Screw Locking 1896-5040s - [id number] Implanted:Qty: 1 on 06/10/2012 at OR [facility] Left: Leg Upper ALFONZO : TRAUMA 07/30/2014 7566-1093 S / / [id number] Screw Compression 1825-0000s - [id number] Implanted:Qty: 1 on 06/10/2012 at OR [facility] Left: Leg Upper ALFONZO : TRAUMA 12/30/2012 7915-0241 S / / [id number] Screw Shaft 1891-5045s - [id number] Implanted:Qty: 1 on 06/10/2012 at OR [facility] Left: Leg Upper ALFONZO : ORTHOPAEDICS 12/31/2015 9446-9446 S / / [id number] Mesh Vicryl 12 X 12 Vkm-L - [id number] Implanted:Qty: 1 on 04/25/2020 by Dejuan Kaufman MD at OR [facility] N/A: Abdomen JNJ : [employer] 04/29/2024 VKM-L / / [id number] Mesh Soft [id number] - [id number] Implanted:Qty: 1 on 04/25/2020 by Dejuan Kaufman MD at OR [facility] N/A: Abdomen CR BARD : DAVOL [id number] 07/27/2024 [id number] / / [id number] documented as of this encounter Visit Diagnoses Diagnosis Lumbar degenerative disc disease Degeneration of lumbar or lumbosacral intervertebral disc History of colon polyps Personal history of colonic polyps Blood in stool documented in this encounter Advance Directives * [...] Directives occurred with: Not Discussed Care Teams Curtain Hemmer Automatic Relationship Specialty Start Date End Date Shazia Bee MD [address] [place] [address] [place] [address] PCP - General Family Medicine 10/30/23 documented as of this encounter
--- OUTSIDE RECORDS SUMMARY | 2024-04-01 20:46 | External Medical Summary | Summary of Care ---
Author Name Unknown Organization [facility] Address [address] [place] [address] Phone [phone] Care Team Providers Care Sprinkler Driver Name Role Phone Shazia Bee MD Primary Care Provide r Encounter Details Date Type Department Care Team (Late st Contact Info) Description 02/02/2024 Result Scan Unspecified Department <No scans attached> Allergies No known active allergiesdocumented as of this encounter (statuses as of 02/03/2024) Medications BLOOD PRESSURE CUFF MISCIndications:Fa ll for [...] needed for itching or anxiety 40 Tablet 12/27/20 22 Active traZODone HCl 100 MG Oral [...] daily. 30 Tablet 3 11/23/19 24 Active Baclofen 20 MG Oral TabletIndications: Lumbar degenerative disc disease TAKE ONE TABLET BY MOUTH IN THE MORNING, at noon, and before bedtime if needed for muscle spasms 90 Tablet 01/04/20 24 Active Atorvastatin Calcium 40 MG Oral [...] tabs 270 Tablet 3 01/29/20 24 Active documented as of this encounter (statuses as of 02/03/2024) Active Problems Problem Noted Date Diagnosed Date Necrotizing fasciitis 01/25/2024 GERD (gastroesophageal reflux disease) 4 Food insecurity 11/09/2023 Overview: Per [facility] Pharmacy Protocol Multinodular goiter 01/16/2023 Mild carotid [...] Dr. [facility]- Keri Zaman ([phone]) [facility]- Cate Trinidad ([phone]) [facility]- Julia Villafana ([phone]) Diagnosis changed due to Research Module. Go to Snapshot for study details. Anxiety 04/26/2015 11/20/2016 Recurrent major depressive disorder 04/14/2014 06/21/2019 Adrenal insufficiency 12/12/20132016 FORCE TJR RESEARCH OTHER*[id number] 11/02/2013 03/19/2016 Overview (03/19/2016): Patient has completed [...] Next Due Pneumococcal Conjugate Vacci ne, 20-valent ([id number]) 11/15/2021 Pneumococcal Polysaccharide PPV23 (Pneumovax) 06/26/2008 Seasonal [...] (Latest Contact Info) Description 02/09/2024 11:15 AM [facility] Hospital Encounter ENDO OSS, Endoscopy Room [facility] [address] [place] [phone] Lee Porras MD [address] [place] [address] 02/09/2024 11:15 AM EST - 02/09/2024 11:45 AM EST Surgery ENDO OSS, Endoscopy Room [facility] [address] [place] [phone] Lee Porras MD [address] [place] [address] COLONOSCOPY FLEXIBLE PROXIMAL DIAGNOSTIC 04/27/2024 1:40 PM EST Office Visit Family Medicine [address] [place] [phone] Arlet Groves MD [address] [place] [address] [place] [phone] 05/24/2024 9:00 AM EDT Office Visit Cardiology [address] [place] [address] Quinn Uriostegui PA-C [address] [place] [address] 06/20/2024 8:40 AM EDT Office Visit Neurology [facility] [place] [address] [place] [address] Cesar Palma MD [address] [place], [place] [address] 10/18/2024 12:30 PM EDT Imaging Radiology [address] [place] [address] 01/30/2025 1:20 PM EST Office Visit Rheumatology [facility] [address] [facility] [place] [address] Isidro Phillips MD [address] [place] [address] Scheduled Procedures Name Priority Associated Diagnoses Date/Ti [...] exists DISCUSS TOBACCO CESSATION (REFER TO SMARTSET #7228) 01/24/2025 01/25/2024 (Discussed) Depression Monitoring 01/24/2025 01/25/2024 [...] this encounter Medical Devices Implanted Type Area Post Closing Specialist Device Identifier Shelf Expiration Date Model / Serial / Lot Alfonzo Arthrodesis Nail, Left Implanted:Qty: 1 on 06/10/2012 [place] [facility] [place] - Non Human Left: Leg Upper ALFONZO 04/01/2016 4770-2845 S / / [id number] Screw Locking 1896-5035s - [id number] Implanted:Qty: 1 on 06/10/2012 [place] [facility]: Leg Upper ALFONZO : TRAUMA 08/29/2013 4124-1562 S / / [id number] Screw Locking 1896-5030s - [id number] Implanted:Qty: 1 on 06/10/2012 [place] [facility] ALFONZO : TRAUMA 04/29/2013 2638-7103 S / / [id number] Screw Threaded Lckg 5x42.5mm - [id number] Implanted:05/31 (Quantity not on file) Left: Leg Upper ALFONZO : ORTHOPAEDICS 12/31/2015 0957-2319 S / / [id number] Screw Locking 1896-5040s - [id number] Implanted:Qty: 1 on 06/10/2012 at [place] [facility] Left: Leg Upper ALFONZO : TRAUMA 07/30/2014 1274-5333 S / / [id number] Screw Compression 1825-0000s - [id number] Implanted:Qty: 1 on 06/10/2012 at [place] [facility] Left: Leg Upper ALFONZO : TRAUMA 12/30/2012 7910-0588 S / / [id number] Screw Shaft 189-5045s - [id number] Implanted:Qty: 1 on 06/10/2012 at [place] [facility] Left: Leg Upper ALFONZO : ORTHOPAEDICS 12/31/2015 1397-8438 S / / [id number] Mesh Vicryl 12 X 12 Vkm-L - [id number] Implanted:Qty: 1 on 04/25/2020 by Dejuan Kaufman MD at [place] [facility] N/A: Abdomen JNJ : [employer] 04/29/2024 VKM-L / / [id number] Mesh Soft [id number] - [id number] Implanted:Qty: 1 on 04/25/2020 by Dejuan Kaufman MD at [place] [facility] N/A: Abdomen CR BARD : DAVOL [id number] 07/27/2024 [id number] / / [id number] documented as of this encounter Procedures Procedure Name Priority Date/Time Associated Diagnosis Comments RADIOLOGY SCANNED RESULT 02/02/2024 documented in this encounter Results * RADIOLOGY SCANNED RESULT (02/02/2024) 02/02/2024 us No Physician Data Unknown DIAGNOSTIC RADIOLOGY S ERVICES Final Result documented in this encounter Advance [...] Directives occurred with: Not Discussed Care Teams Sprinkler Driver Relationship Specialty Start Date End Date Shazia Bee MD [address] [place] [address] [place] [address] PCP - General Family Medicine 10/30/23 documented as of this encounter
--- OUTSIDE RECORDS SUMMARY | 2024-04-01 20:46 | External Medical Summary | Summary of Care ---
Author Name Unknown Organization [facility] Address [address] [place] [address] Phone [phone] Care Team Providers Care Library Services Dean Name Role Phone Shazia Bee MD Primary Care Provide r Reason for Visit * Reason Comments eRx-Medication Refill Encounter Details Date Type Department Care Team (Late st Contact Info) Description 01/27/2024 Refill Neurology [facility] [place] [address] [place] [address] Cesar Castro MD [address] [place] [address] RLS (restless legs syndrome) Allergies No known active allergiesdocumented as of this encounter (statuses as of 01/29/2024) Medications BLOOD PRESSURE CUFF MISCIndications:F all for home BP monitoring 1 Kit 1 014 Active FOLIC ACID 800 MCG PO TABS Take 1 Tablet by mouth in the morning. Active CYANOCOBALAMIN (VITAMIN B-12) 100 MCG Tablet Take 1 Tablet by mouth in the morning. Active calcium-vit D 500mg-200 units per tab 500-200 MG-UNIT per tablet Take 2 Tablets by mouth every morning. Active Iron 325 (65 Fe) MG Oral [...] for muscle spasms 90 Tablet 024 Active Atorvastatin Calcium 40 MG Oral [...] Active Wegovy 0.5 MG/0.5ML Subcutaneous Solution Auto-injector (Semaglutide-Sunfireg ht Management)Indica tions:Obesity (BMI 30-39.9) Inject 0.5 [...] THE EVENING 90 Tablet 1 024 Active rOPINIRole HCl 2 MG Oral Tablet (Requip)Indicatio ns:RLS (restless legs syndrome) TAKE ONE TABLET BY MOUTH ONCE DAILY IN THE EVENING 90 Tablet 024 2023 Discontinued documented as of this encounter (statuses as of 01/29/2024) Active Problems Problem Noted Date Diagnosed Date Necrotizing fasciitis 01/25/2024 GERD (gastroesophageal reflux disease) 4 Food insecurity 11/09/2023 Overview: Per [facility] Protocol Joe mcdonalditer 01/16/2023 Mild carotid artery disease 04/30/2022 Severe [...] as of this encounter (statuses as of 01/29/2024) Resolved Problems Problem Noted Date Diagnosed Date [...] rates. Contacts: PI: Dr. Shima [facility]- Keri Zaman ([phone]) [facility]- Cate Trinidad ([phone]) [facility]- Julia Villafana ([phone]) Diagnosis changed due to Research Module. Go to Snapshot for study details. Anxiety 04/26/2015 11/20/2016 Recurrent major depressive disorder 04/14/2014 06/21/2019 Adrenal insufficiency 12/12/20132016 FORCE TJR RESEARCH OTHER*[id number] 11/02/2013 03/19/2016 Overview (03/19/2016): Patient has completed [...] as of this encounter (statuses as of 01/29/2024) Immunizations Name Administration Dates Next Due Pneumococcal Conjugate Vacci ne, 20-valent ([id number]) 11/15/2021 Pneumococcal Polysaccharide PPV23 (Pneumovax) 06/26/2008 Seasonal [...] encounter Miscellaneous Notes * Telephone Encounter - Jose Armando Lund [facility] - 01/29/2024 2:55 PM ESTSigned Prescriptions: Disp Refills rOPINIRole HCl 2 MG Oral Tablet (Requip) 90 Tab*1 Sig: TAKE ONE TABLET BY MOUTH ONCE DAILY IN THE EVENINGAuthorizing Provider: Sourav CASTRO User: AQUILES LUND * Telephone Encounter - Lamin Neff - 01/27/2024 7:19 PM ESTPending Prescriptions: Disp Refills rOPINIRole HCl 2 MG Oral Tablet [Pharmacy *90 Tab*0 Sig: TAKE ONE TABLET BY MOUTH ONCE DAILY IN THE EVENING * Telephone Encounter - Lamin Neff - 01/27/2024 7:17 PM EST Did you pend patient's preferred pharmacy and medication before forwarding?yes Pharmacy: [id number] [address] [facility] Pending Prescriptions: Disp Refills rOPINIRole HCl 2 MG Oral Tablet (Requip) *90 Tab*0 Sig: TAKE ONE TABLET BY MOUTH ONCE DAILY IN THE EVENING Last Visit: 12/14/2023 (in office), Visit date not found (telemedicine) Next Visit: 06/20/2024 If no future appointments scheduled, and last appointment is greater than a year ago, please schedule patient for a follow-up appointment Last date the medication was ordered: 11/10/2023 Is this request for a controlled substance?No [...] 1:40 PM EST Office Visit Family Medicine [address] [place] [phone] Arlet Groves MD [address] [place] [address] [place] [phone] 05/24/2024 9:00 AM EDT Office Visit Cardiology [address] [place] [address] Quinn Uriostegui, PA-C [address] [facility] [place] [address] 06/20/2024 8:40 AM EDT Office Visit Neurology [facility] [place] [address] [place] [address] Cesar Castro MD [address] [facility] [place] [address] 10/18/2024 12:30 PM EDT Imaging Radiology [address] [place] [address] 01/30/2025 1:20 PM EST Office Visit Rheumatology [facility] [address] [place] [address] Isidro Phillips MD [address] [place] [address] Scheduled Procedures Name Priority Associated Diagnoses Date/Ti [...] this encounter Medical Devices Implanted Type Area Flight Data Technician Device Identifier Shelf Expiration Date Model / Serial / Lot [place] Arthrodesis Nail, Left Implanted:Qty: 1 on [place]10[place]2012 [place] [facility] - Non Human Left: Leg Upper ALFONZO 04/01/2016 [id number] S / / [id number] Screw Locking 1896-5035s - [id number] Implanted:Qty: 1 on 06/10/2012 [place] [facility] [place]: Leg Upper ALFONZO : TRAUMA 08/29/2013 7671-4884 S / / [id number] Screw Locking 1896-5030s - [id number] Implanted:Qty: 1 on 06/10/2012 [place] [facility] ALFONZO : TRAUMA 04/29/2013 7444-0034 S / / [id number] Screw Threaded Lckg 5x42.5mm - [id number] Implanted:05/31 (Quantity not on file) Left: Leg Upper ALFONZO : ORTHOPAEDICS 12/31/2015 0533-6225 S / / [id number] Screw Locking 1896-5040s - [id number] Implanted:Qty: 1 on 06/10/2012 [place] [facility] [place]: Leg Upper ALFONZO : TRAUMA 07/30/2014 5467-4577 S / / [id number] Screw Compression 1825-0000s - [id number] Implanted:Qty: 1 on 06/10/2012 [place] [facility] [place]: Leg Upper ALFONZO : TRAUMA 12/30/2012 1061-0342 S / / [id number] Screw Shaft 1891-5045s - [id number] Implanted:Qty: 1 on 06/10/2012 [place] [facility] [place]: Leg Upper ALFONZO : ORTHOPAEDICS 12/31/2015 0567-3281 S / / [id number] Mesh Vicryl 12 X 12 Vkm-L - [id number] Implanted:Qty: 1 on 04/25/2020 by Dejuan Kaufman MD [place] [facility] [place]/A: Abdomen JNJ : [employer] 04/29/2024 VKM-L / / [id number] Mesh Soft [id number] - [id number] Implanted:Qty: 1 on 04/25/2020 by Dejuan Kaufman MD [place] [facility]/A: Abdomen CR BARD : ASHTYN [id number] 07/27/2024 [id number] / / [id number] documented as of this encounter Visit Diagnoses Diagnosis RLS (restless legs syndrome) Restless legs syndrome (RLS) documented in this encounter Advance Directives * [...] Directives occurred with: Not Discussed Care Teams Library Services Dean Relationship Specialty Start Date End Date Shazia Bee MD [address] [place] [address] [place] [address] PCP - General Family Medicine 10/30/23 documented as of this encounter
--- OUTSIDE RECORDS SUMMARY | 2024-04-01 20:46 | External Medical Summary | Summary of Care ---
Author Name Unknown Organization [facility] Address [address] [place] [address] Phone [phone] Care Team Providers Care Duplicator Punch Set Up Operator Name Role Phone Shazia Bee MD Primary Care Provide r Reason for Visit * Reason Onset Date Comments Medication Refill 01/29/2024 Encounter Details Date Type Department Care Team (Late st Contact Info) Description 01/29/2024 Refill [facility] [address] [place], [place] [phone] Joan López MD [address] [place], [place] [phone] History of adrenal insufficiency Allergies No known active allergiesdocumented as of this encounter (statuses as of 01/29/2024) Medications BLOOD PRESSURE CUFF MISCIndications:Fa ll for [...] evening 180 Tablet 1 08/19/19 24 Active rOPINIRole HCl 2 MG Oral Tablet (Requip)Indication s:RLS (restless legs syndrome) TAKE ONE TABLET BY MOUTH ONCE DAILY IN THE EVENING 90 Tablet 11/10/19 24 Active Sucralfate 1 GM Oral Tablet [...] pain.. 180 Tablet 3 01/25/20 24 Active Hydrocortisone 5 MG Oral Tablet (Cortef)Indication s:History of adrenal insufficiency 2 tab in the morning, and 1 tab around 2 pm, triple dose during illness, MDD 9 tabs 270 Tablet 3 01/29/20 24 Active Hydrocortisone 5 MG Oral Tablet (Cortef)Indication s:History of adrenal insufficiency 2 tab in the morning, and 1 tab around 2 pm, triple dose during illness, MDD 9 tabs 270 Tablet 3 05/15/19 24 024 Discontin ued(Refil l) documented as of this [...] Dr. Shima De Jesus CRC- Keri Zaman ([phone]) [facility]- Cate Trinidad ([phone]) [facility] Julia Villafana ([phone]) Diagnosis changed due to Research Module. Go to Snapshot for study details. Anxiety 04/26/2015 11/20/2016 Recurrent major depressive disorder 04/14/2014 06/21/2019 Adrenal insufficiency 12/12/20132016 [facility]CE [facility] RESEARCH OTHER*[id number] 11/02/2013 03/19/2016 Overview (03/19/2016): Patient has completed [...] Next Due Pneumococcal Conjugate Vacci ne, 20-valent ([id number]) 11/15/2021 Pneumococcal Polysaccharide PPV23 (Pneumovax) 06/26/2008 Seasonal [...] Entry Date Author No 04/24/2020 5:38 PM Aelxis Tran RN documented in this encounter Miscellaneous [...] the medication was ordered: 05/15/2023 Pharmacy: [id number] [address] [facility] * Telephone Encounter - Saadia Eldridge [...] 1:40 PM EST Office Visit Family Medicine [address] [place] [phone] Arlet Groves MD [address] [place] [address] [place] [phone] 05/24/2024 9:00 AM EDT Office Visit Cardiology [address] [place] [address] Quinn Uriostegui PA-C [address] [facility] [place] [address] 06/20/2024 8:40 AM EDT Office Visit Neurology [facility] [place] [address] [place] [address] Cesar Palma MD [address] [place] [address] 10/18/2024 12:30 PM EDT Imaging Radiology [address] [place] [address] 01/30/2025 1:20 PM EST Office Visit Rheumatology [place] [phone] [employer] [place], [place] [address] Franchesca Phillips MD [address] [employer] [facility] [place] [address] Scheduled Procedures Name Priority Associated Diagnoses Date/Ti me COLONOSCOPY FLEXIBLE PROXIMAL DIAGNOSTIC Recall History of colon polyps Health Maintenance Due Date Last Done Comments COVID-19 Vaccine (#1) 1970 Hepatitis B Vaccine (1 of 3 - 19+ 3-dose series) 1984 Fecal Occult Blood Test 2010 Sigmoidoscopy 2010 Cologuard 06/02/2021 06/02/2018 Colonoscopy 04/24/2023 04/24/2020, 04/24/2020 Colorectal Cancer Screening 04/24/2023 Mammogram 10/14/2024 10/15/2023, 08/2 04/2022, 08/30/2021, Additional history exists DISCUSS TOBACCO CESSATION [...] this encounter Medical Devices Implanted Type Area General Service Officer Device Identifier Shelf Expiration Date Model / Serial / Lot [place] Arthrodesis Nail, Left Implanted:Qty: 1 on 06[place]10[place] [facility] [place] - Non Human Left: Leg Upper ALFONZO 04/01/2016 [id number] S / / [id number] Screw Locking 1896-5030s - [id number] Implanted:Qty: 1 on 06/10/2012 [place] [facility] [place]: Leg Upper ALFONZO : TRAUMA 08/29/2013 [id number] S / / [id number] Screw Locking 1896-5030s - [id number] Implanted:Qty: 1 on 06/10/2012 [place] [facility] [place] ALFONZO : TRAUMA 04/29/2013 3112-9927 S / / [id number] Screw Threaded Lckg 5x42.5mm - [id number] Implanted:05/31 (Quantity not on file) Left: Leg Upper ALFONZO : ORTHOPAEDICS 12/31/2015 1511-3690 S / / [id number] Screw Locking 1896-5040s - [id number] Implanted:Qty: 1 on 06/10/2012 [place] [facility] [place]: Leg Upper ALFONZO : TRAUMA 07/30/2014 0246-7119 S / / [id number] Screw Compression 1825-0000s - [id number] Implanted:Qty: 1 on 06/10/2012 [place] [facility] [place]: Leg Upper ALFONZO : TRAUMA 12/30/2012 8090-9866 S / / [id number] Screw Shaft 1891-5045s - [id number] Implanted:Qty: 1 on 06/10/2012 [place] [facility] [place]: Leg Upper ALFONZO : ORTHOPAEDICS 12/31/2015 [id number] S / / [id number] Mesh Vicryl 12 X 12 Vkm-L - [id number] Implanted:Qty: 1 on 04/25/2020 by Dejuan Kaufman MD at [place] [facility] N/A: Abdomen JNJ : [employer] 04/29/2024 VKM-L / / [id number] Mesh Soft [id number] - [id number] Implanted:Qty: 1 on 04/25/2020 by Dejuan Kaufman MD at [place] [facility] N/A: Abdomen CR BARD : DAVOL [id number] 07/27/2024 [id number] / / [id number] documented as of this encounter Visit Diagnoses [...] Directives occurred with: Not Discussed Care Teams Duplicator Punch Set Up Operator Relationship Specialty Start Date End Date Shazia Bee MD [address] [place] [address] [place] [phone] PCP - General Family Medicine 10/30/23 documented as of this encounter
--- OUTSIDE RECORDS SUMMARY | 2024-04-01 20:47 | External Medical Summary | Summary of Care ---
Author Name Unknown Organization [facility] Address [address] [facility] [place] [address] Phone [phone] Care Team Providers Care Speech Language Pathologist Assistant Name Role Phone Shazia Bee MD Primary Care Provide r Reason for Visit * Reason Comments Outpatient Testing Encounter Details Date Type Department Care Team (Late st Contact Info) Description 01/20/2024 1:50 PM EST Laboratory Laboratory [address] [place] [phone] [place] [address] Non-toxic multinodular goiter Allergies No known active allergiesdocumented as of this encounter (statuses as of 01/20/2024) Medications BLOOD PRESSURE CUFF MISCIndications:Fa ll for [...] Tablet by mouth in the morning. Active valACYclovir HCl 1 GM Oral Tablet (Valtrex) as needed. 07/28/19 22 Active Pramoxine HCl 1 % External LotionIndications: [...] just 1 tablet at bedtime., Reported on 01/20/2024 Mirtazapine 7.5 MG Oral Tablet (Remeron) Take 1 Tablet by mouth at bedtime. 04/14/19 23 Active Ondansetron 4 MG Oral Tablet Disintegrating Place 1 Tablet on tongue every 8 hours as needed for Nausea or Vomiting. dissolve on tongue. 30 Tablet 5 05/07/19 23 Active Hydrocortisone 5 MG Oral Tablet (Cortef)Indication s:History of adrenal insufficiency 2 tab in the morning, and 1 tab around 2 pm, triple dose during illness, MDD 9 tabs 270 Tablet 3 05/15/19 24 Active Midodrine HCl 10 MG Oral Tablet [...] evening 180 Tablet 1 08/19/19 24 Active Gabapentin 600 MG Oral Tablet (Neurontin)Indicat ions:Spinal stenosis of lumbar region with neurogenic claudication take 1 tablet in the morning, 1 tablet at noon and 1 tablet before bedtime 270 Tablet 1 09/14/19 24 Active Meloxicam 15 MG Oral Tablet (Mobic)Indications :Lumbar degenerative disc disease,DDD (degenerative disc disease), cervical Take 1 Tablet by mouth in the morning. for pain.. 90 Tablet 1 10/30/19 24 Active rOPINIRole HCl 2 MG Oral Tablet (Requip)Indication s:RLS (restless legs syndrome) TAKE ONE TABLET BY MOUTH ONCE DAILY IN THE EVENING 90 Tablet 11/10/19 24 Active Wegovy 0.25 MG/0.5ML Subcutaneous Solution Auto-injector (Semaglutide-Weigh t Management) Inject 0.25 mg (1 pen) under the skin once a week. 2 mL 5 4 8:56 AM EDT 11/20/19 Active Additional Information Patient not taking.Reported on 01/20/2024 Sucralfate 1 GM Oral Tablet (Carafate) TAKE [...] MG Oral Capsule Delayed Release Particles (Cymbalta) 10/26/20 24 Active documented as of this encounter (statuses as of 01/20/2024) Active Problems Problem Noted Date Diagnosed Date GERD (gastroesophageal reflux disease) Food insecurity 11/09/2023 Overview: Per [facility] Protocol Encounter for long-term (current) use of medicat ions 04/27/2023 Hx of atypical nevus 10/21/2022 Mild carotid artery disease 04/30/2022 Thyroid nodule 01/21/2022 Lupus erythematosus tumidus [...] as of this encounter (statuses as of 01/20/2024) Resolved Problems Problem Noted Date Diagnosed Date Resolved Date 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 Shima Burns CRC- Keri Zaman ([phone]) [facility] CRC- Cate Trinidad ([phone]) [facility] CRC- Julia Villafana ([phone]) Diagnosis changed due to Research Module. Go to Snapshot for study details. Anxiety 04/26/2015 11/20/2016 Recurrent major depressive disorder 04/14/2014 06/21/2019 Adrenal insufficiency 12/12/20132016 [employer] [facility] RESEARCH OTHER*[id number] 11/02/2013 03/19/2016 Overview (03/19/2016): Patient has completed [...] as of this encounter (statuses as of 01/20/2024) Immunizations Name Administration Dates Next Due Pneumococcal Conjugate Vacci ne, 20-valent ([id number]) 11/15/2021 Pneumococcal Polysaccharide PPV23 (Pneumovax) 06/26/2008 Seasonal [...] Used Date Smoking Tobacco: Every Day Cigarettes 0.5 42 Smokeless Tobacco: Never Alcohol Use Standard Drinks/Week Comments Not Currently 0 (1 standard drink = 0.6 oz pur e alcohol) PHQ-2 Answer Date Recorded PHQ-2 Score 0 12/13/2019 Hunger Vital Sign Answer Date Recorded Within [...] Care Team (Late st Contact Info) Description 01/22/2024 2:00 PM EST Imaging Radiology [address] [place] [address] 05/24/2024 9:00 AM EDT Office Visit Cardiology [address] [place] [address] Quinn Uriostegui, [place]-C [address] [place] [address] 06/20/2024 8:40 AM EDT Office Visit Neurology [facility] [address] [place] [address] Cesar Palma MD [address] [place] [facility] [place] [address] 10/18/2024 12:30 PM EDT Imaging Radiology [address] [place] [address] 01/30/2025 1:20 PM EST Office Visit Rheumatology [facility] [address] [place] [address] Isidro Phillips MD [address] [employer] [place] [address] Pending Results Name Type Priority Associated Diagnoses Date /Time TSH Lab Routine Non-toxic multinodular goiter 01/20/2024 1:56 PM EST Scheduled Procedures Name Priority Associated Diagnoses Date/Ti me COLONOSCOPY FLEXIBLE PROXIMAL DIAGNOSTIC Recall History of colon polyps Health Maintenance Due Date Last Done Comments DISCUSS TOBACCO CESSATION (REFER TO SMARTSET #8699) 1965 COVID-19 Vaccine (#1) 1970 Hepatitis B Vaccine (1 of 3 - 19+ 3-dose series) 1984 Fecal Occult Blood Test 2010 Sigmoidoscopy 2010 Depression Monitoring 12/12/2020 12/13/2019 Cologuard 06/02/2021 06/02/2018 Colonoscopy 04/24/2023 04/24/2020, 04/24/2020 Colorectal Cancer Screening 04/24/2023 Mammogram 10/14/2024 10/15/2023, 10/01, 08/30/2021, Additional history exists Diabetes Screening 08/20/2026 08/21/2023, 0 06/22/2023, 03/31/2023, Additional history exists DTap/Tdap Vaccines (3 - Td or Tdap) 06/08/2028 06/08/2018, 08/27/2007 Lipid Panel 10/07/2028 10/08/2023, 04/2022, 03/25/2021, Additional history exists Zoster Vaccines [...] this encounter Medical Devices Implanted Type Area Beam Saw Operator Device Identifier Shelf Expiration Date Model / Serial / Lot [place] Arthrodesis Nail, Left Implanted:Qty: 1 on 06/10/2012 at [place] [facility] [place] Tissue - Non Human Left: Leg Upper ALFONZO 04/01/2016 [id number] S / / [id number] Screw Locking 1896-5035s - [id number] Implanted:Qty: 1 on 06/10/2012 at [place] [facility] [place] Left: Leg Upper ALFONZO : TRAUMA 08/29/2013 9422-1957 S / / [id number] Screw Locking 1896-5030s - [id number] Implanted:Qty: 1 on 06/10/2012 at [place] [facility] [place] ALFONZO : TRAUMA 04/29/2013 4815-4777 S / / [id number] Screw Threaded Lckg 5x42.5mm - [id number] Implanted:05/31 (Quantity not on file) Left: Leg Upper ALFONZO : ORTHOPAEDICS 12/31/2015 8544-5229 S / / [id number] Screw Locking 1896-5040s - [id number] Implanted:Qty: 1 on 06/10/2012 at [place] [facility] [place] Left: Leg Upper ALFONZO : TRAUMA 07/30/2014 4903-4105 S / / [id number] Screw Compression 1825-0000s - [id number] Implanted:Qty: 1 on 06/10/2012 at [place] [facility] Left: Leg Upper ALFONZO : TRAUMA 12/30/2012 0385-8125 S / / [id number] Screw Shaft 1891-5045s - [id number] Implanted:Qty: 1 on 06/10/2012 at [place] [facility] Left: Leg Upper ALFONZO : ORTHOPAEDICS 12/31/2015 6099-0014 S / / [id number] Mesh Vicryl 12 X 12 Vkm-L - [id number] Implanted:Qty: 1 on 04/25/2020 by Dejuan Kaufman MD at [place] [facility] N/A: Abdomen JNJ : [employer] 04/29/2024 VKM-L / / [id number] Mesh Soft [id number] - [id number] Implanted:Qty: 1 on 04/25/2020 by Dejuan Kaufman MD at OR [facility] N/A: Abdomen CR BARD : DAVOL [id number] 07/27/2024 [id number] / / [id number] documented as of this encounter Visit Diagnoses Diagnosis Non-toxic multinodular goiter Nontoxic multinodular goiter documented in this encounter Advance Directives * [...] Directives occurred with: Not Discussed Care Teams Speech Language Pathologist Assistant Relationship Specialty Start Date End Date Shazia Bee MD [address] [place] [address] [place] [address] PCP - General Family Medicine 10/30/23 documented as of this encounter
--- OUTSIDE RECORDS SUMMARY | 2024-04-01 20:47 | External Medical Summary | Summary of Care ---
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 Name Role Phone Shazia Bee MD Primary Care Provide r Reason for Visit * Reason Onset Date Comments Medication Refill 09/12/2023 Encounter Details Date Type Department Care Team (Late st Contact Info) Description 09/12/2023 Refill Family Medicine [address] [place] [phone] Shazia Bee MD [address] [place] [address] [place] [phone] Spinal stenosis of lumbar region with neurogenic claudication Allergies No known active allergiesdocumented as of this encounter (statuses as of 01/22/2024) Medications BLOOD PRESSURE CUFF MISCIndications:F all for [...] 1 GM Oral Tablet (Valtrex) as needed. 022 Active Pramoxine HCl 1 % External LotionIndications :Cutaneous lupus erythematosus Apply to back twice daily as needed (please provide lotion wanzuleika, pt lives alone) 222 mL 2 022 [...] on tongue. 30 Tablet 5 023 Active Hydrocortisone 5 MG Oral Tablet (Cortef)Indicatio ns:History of adrenal insufficiency 2 tab in the morning, and 1 tab around 2 pm, triple dose during illness, MDD 9 tabs 270 Tablet 3 024 Active Midodrine HCl 10 MG Oral Tablet [...] each evening 180 Tablet 1 024 Active Gabapentin 600 MG Oral Tablet (Neurontin)Indica tions:Spinal stenosis of lumbar region with neurogenic claudication take 1 tablet in the morning, 1 tablet at noon and 1 tablet before bedtime 270 Tablet 1 024 Active Omeprazole 40 MG Oral Capsule Delayed Release (PriLOSEC) Take by mouth 1 Capsule in the morning. 90 Capsule 3 022 2023 Discontinued(M edication List Clean Up) DULoxetine HCl 60 MG Oral Capsule Delayed Release Particles (Cymbalta)Indicat ions:LEVI (generalized anxiety disorder),Moderat e episode of recurrent major depressive disorder (HCC) Take by mouth 2 Capsules in the morning. 180 Capsule 1 022 2023 Discontinued(M edication List Clean Up) busPIRone HCl 10 MG Oral Tablet (Buspar) TAKE ONE TABLET BY MOUTH IN THE MORNING, at noon, and before bedtime for anxiety 270 Tablet 1 023 2023 Discontinued(M edication List Clean Up) Atorvastatin Calcium 40 MG Oral Tablet (Lipitor) TAKE 1 TABLET BY MOUTH EVERY MORNING 90 Tablet 1 023 2023 Discontinued Gabapentin 600 MG Oral Tablet (Neurontin)Indica tions:Spinal stenosis of lumbar region with neurogenic claudication take 1 tablet in the morning, 1 tablet at noon and 1 tablet before bedtime 270 Tablet 3 023 2023 Discontinued(R efill) Pantoprazole Sodium 40 MG Oral Tablet Delayed Release (Protonix)Indicat ions:Nausea and vomiting, unspecified vomiting type Take 1 Tablet by mouth in the morning. 30 minutes before the first meal of the day. Do not crush, split or chew the tablet. 30 Tablet 5 024 2023 Discontinued Furosemide 40 MG Oral Tablet (Lasix)Indication s:Bilateral lower extremity edema TAKE ONE TABLET BY MOUTH DAILY NEEDED for swelling 90 Tablet 1 024 2023 Discontinued rOPINIRole HCl 2 MG Oral Tablet (Requip)Indicatio ns:RLS (restless legs syndrome) TAKE ONE TABLET BY MOUTH ONCE DAILY IN THE EVENING 90 Tablet 024 2023 Discontinued Linzess 72 MCG Oral Capsule (linaCLOtide) TAKE 1 CAPSULE BY MOUTH DAILY BEFORE BREAKFAST 90 Capsule 3 024 2023 Discontinued Wegovy 0.25 MG/0.5ML Subcutaneous Solution Auto-injector (Semaglutide-Weig ht Management)Indica tions:Class 1 obesity due to excess calories with serious comorbidity and body mass index (BMI) of 31.0 to 31.9 in adult Inject 0.25 mg under the skin once a week. 2 mL 3 024 2023 Discontinued Sucralfate 1 GM Oral Tablet (Carafate) TAKE ONE TABLET BY MOUTH AT BEDTIME. may also take additionally up to 4 times daily if needed for nausea, epigastric pain 360 Tablet 024 2023 Discontinued Baclofen 20 MG Oral TabletIndications :Lumbar degenerative disc disease TAKE ONE TABLET BY MOUTH THREE TIMES DAILY in the morning, at noon, and before bedtime if needed for muscle spasms 90 Tablet 2 024 2023 Discontinued documented as of this encounter (statuses as of 01/22/2024) Active Problems Problem Noted Date Diagnosed Date [...] as of this encounter (statuses as of 01/22/2024) Resolved Problems Problem Noted Date Diagnosed Date [...] PI: Dr. Shima Burns [facility]- Keri Zaman ([phone]) [facility]- Cate Trinidad ([phone]) [facility]- Julia Villafana ([phone]) Diagnosis changed due to Research Module. Go to Snapshot for study details. Anxiety 04/26/2015 11/20/2016 Recurrent major depressive disorder 04/14/2014 06/21/2019 Adrenal insufficiency 12/12/20132016 [facility] RESEARCH OTHER*[id number] 11/02/2013 03/19/2016 Overview (03/19/2016): Patient has completed [...] as of this encounter (statuses as of 01/22/2024) Immunizations Name Administration Dates Next Due Pneumococcal Conjugate Vacci ne, 20-valent ([id number]) 11/15/2021 Pneumococcal Polysaccharide PPV23 (Pneumovax) 06/26/2008 Seasonal [...] encounter Miscellaneous Notes * Telephone Encounter - Dawson Berger OSA - 01/22/2024 1:54 PM ESTSigned Prescriptions: Disp Refills Gabapentin 600 MG Oral Tablet (Neurontin) 270 Ta*1 Sig: take 1 tablet in the morning, 1 tablet at noon and 1 tablet before bedtimeAuthorizing Provider: SHIVA DANGELO * Telephone Encounter - Dawson Berger OSA - 01/22/2024 1:53 PM EST I spoke to pt. She is scheduled with Dr. Dudley * Telephone Encounter - Rose Sparrow RN - 09/14/2023 11:22 AM EDTPending Prescriptions: Disp Refills Gabapentin 600 MG Oral Tablet (Neurontin) 270 Ta*3 Sig: take 1 tablet in the morning, 1 tablet at noon and 1 tablet before bedtime * Telephone Encounter - Rose Sparrow RN - 09/14/2023 11:21 AM EDT Meds pended. Lisbet, please call pt with an appt to establish( ok for wait list for new provider) * Telephone Encounter - Rose Sparrow RN - 09/14/2023 11:21 AM EDT Pending Prescriptions: Disp Refills Gabapentin 600 MG Oral Tablet (Neurontin) 270 Ta*3 Sig: take 1 tablet in the morning, 1 tablet at noon and 1 tablet before bedtime Last Visit: 07/20/2023 (in office), Visit date not found (telemedicine) Next Visit: Visit date not found Last date the medication was ordered: 09/2022 Patient Active Problem List Diagnosis Reflex sympathetic dystrophy of upper extremity Osteoarthrosis, localized, primary, involving lower leg ADVANCE DIRECTIVE INFORMATION Reflex sympathetic dystrophy of lower limb Tobacco use disorder Loss of teeth due to trauma, extraction, or periodontal disease Dyslipidemia, goal LDL below 130 Lumbar degenerative disc disease Degenerative disc disease, cervical Osteoarthritis of knee Joint arthrodesis status LEVI (generalized anxiety disorder) Hx of nonmelanoma skin cancer Orthostatic hypotension Moderate episode of recurrent major depressive disorder (HCC) Primary adrenocortical insufficiency (HCC) Spinal stenosis of lumbar region with neurogenic claudication Lupus erythematosus tumidus Thyroid nodule Sacroiliitis (HCC) Mild carotid artery disease (HCC) Severe obesity with body mass index (BMI) of 35.0 to 39.9 with serious comorbidity (HCC) Hx of atypical nevus Lupus erythematosus tumidus Encounter for long-term (current) use of medications Labs: Lab Results Component Value Date/Time CREATININE - [facility] 1.1 (H) 03/31/2023 01:35 PM CREATININE - [facility] 1.0 11/22/2019 12:25 PM CREATININE-[facility] 1.11 (A) 08/21/2023 12:00 AM Lab Results Component Value Date/Time POTASSIUM - [facility] 5.1 03/31/2023 01:35 PM POTASSIUM - [facility] 4.1 11/22/2019 12:25 PM POTASSIUM, RANDOM URINE - [facility] 47.2 11/04/2019 02:00 PM POTASSIUM, WHOLE BLOOD - [facility] 3.8 04/25/2020 10:33 AM POTASSIUM-[facility] 4.5 08/21/2023 12:00 AM Lab Results Component Value Date/Time TSH - [facility] 1.04 03/31/2023 01:35 PM TSH - [facility] 0.63 2019 10:03 PM TSH - [facility] 1.120 01/19/2023 12:00 AM Lab Results Component Value Date/Time LDL CHOLESTEROL (CALCULATED) - [facility] 82 05/02/2022 01:19 PM LDL CHOLESTEROL (CALCULATED) - [facility] 78 03/25/2021 02:49 PM LDL CHOLESTEROL (CALCULATED) - [facility] 104 04/01/2019 03:51 PM LDL CHOLESTEROL (CALCULATED) - [facility] 120 06/08/2018 09:56 AM LDL CHOLESTEROL (DIRECT MEASURE) - [facility] 140 (H) 04/16/2020 09:59 AM LDL CHOLESTEROL (DIRECT MEASURE) - [facility] NOT APPLICABLE 04/01/2019 03:51 PM LDL CHOLESTEROL (DIRECT MEASURE) - [facility] NOT APPLICABLE 06/08/2018 09:56 AM Lab Results Component Value Date/Time ALT - [facility] 22 03/31/2023 01:35 PM ALT - [facility] 41 (H) 10/19/2019 11:43 AM Hemoglobin AIC Results: Lab Results Component Value Date/Time HEMOGLOBIN A1C - [facility] 5.7 (H) 03/31/2023 01:35 PM HEMOGLOBIN A1C - [facility] 5.3 09/15/2022 01:12 PM HEMOGLOBIN A1C - [facility] 5.4 11/02/2013 12:36 PM * Telephone Encounter - Lamin Neff - 09/12/2023 2:26 PM EDTPending Prescriptions: Disp Refills Gabapentin 600 MG Oral Tablet (Neurontin) 270 Ta*3 Sig: take 1 tablet in the morning, 1 tablet at noon and 1 tablet before bedtime documented in this encounter Plan of Treatment Upcoming Encounters Date Type Department Care Team (Late st Contact Info) Description 01/22/2024 2:00 PM EST Imaging Radiology [address] [place] [address] Non-toxic multinodular goiter 01/25/2024 2:00 PM EST Office Visit Family Medicine [address] [place] [phone] Arlet Groves MD [address] [place] [address] [place] [phone] 05/24/2024 9:00 AM EDT Office Visit Cardiology [address] [place] [address] Quinn Uriostegui PA-C [address] [facility] [place] [address] 06/20/2024 8:40 AM EDT Office Visit Neurology [facility] [place] [address] [place] [address] Cesar Palma MD [address] [place] [address] 10/18/2024 12:30 PM EDT Imaging Radiology [address] [place] [address] 01/30/2025 1:20 PM EST Office Visit Rheumatology [facility] [address] [place] [address] Isidro Phillips MD [address] [place] [address] Scheduled Procedures Name Priority Associated Diagnoses Date/Ti me COLONOSCOPY FLEXIBLE PROXIMAL DIAGNOSTIC Recall History of colon polyps Health Maintenance Due Date Last Done Comments DISCUSS TOBACCO CESSATION (REFER TO SMARTSET #3625) 1965 COVID-19 Vaccine (#1) 1970 Hepatitis B Vaccine (1 of 3 - 19+ 3-dose series) 1984 Fecal Occult Blood Test 2010 Sigmoidoscopy 2010 Depression Monitoring 12/12/2020 12/13/2019 Cologuard 06/02/2021 06/02/2018 Colonoscopy 04/24/2023 04/24/2020, 04/24/2020 Colorectal Cancer Screening 04/24/2023 Mammogram 10/14/2024 10/15/2023, 10/01, 08/30/2021, Additional history exists Diabetes Screening 01/19/2027 01/20/2024, [...] this encounter Medical Devices Implanted Type Area Mirror Inspector Device Identifier Shelf Expiration Date Model / Serial / Lot Alfonzo Arthrodesis Nail, Left Implanted:Qty: 1 on 06/10/2012 at [place] [facility] Tissue - Non Human Left: Leg Upper ALFONZO 04/01/2016 [id number] S / / [id number] Screw Locking 1896-5035s - [id number] Implanted:Qty: 1 on 06/10/2012 at [place] [facility] [place] Left: Leg Upper ALFONZO : TRAUMA 08/29/2013 [id number] S / / [id number] Screw Locking 1896-5030s - [id number] Implanted:Qty: 1 on 06/10/2012 at [place] [facility] [place] ALFONZO : TRAUMA 04/29/2013 [id number] S / / [id number] Screw Threaded Lckg 5x42.5mm - [id number] Implanted:05/31 (Quantity not on file) Left: Leg Upper ALFONZO : ORTHOPAEDICS 12/31/2015 [id number] S / / [id number] Screw Locking 1896-5040s - [id number] Implanted:Qty: 1 on 06/10/2012 at [place] [facility] [place] Left: Leg Upper ALFONZO : TRAUMA 07/30/2014 [id number] S / / [id number] Screw Compression 1825-0000s - [id number] Implanted:Qty: 1 on 06/10/2012 at [place] [facility] Left: Leg Upper ALFONZO : TRAUMA 12/30/2012 [id number] S / / [id number] Screw Shaft 1891-5045s - [id number] Implanted:Qty: 1 on 06/10/2012 at [place] [facility] [place] Left: Leg Upper ALFONZO : ORTHOPAEDICS 12/31/2015 [id number] S / / [id number] Mesh Vicryl 12 X 12 Vkm-L - [id number] Implanted:Qty: 1 on 04/25/2020 by Dejuan Kaufman MD at [place] [facility] N/A: Abdomen JNJ : [employer] 04/29/2024 VKM-L / / [id number] Mesh Soft [id number] - [id number] Implanted:Qty: 1 on 04/25/2020 by Dejuan Kaufman MD at [place] [facility] N/A: Abdomen CR BARD : DAVOL [id number] 07/27/2024 [id number] / / [id number] documented as of this encounter Visit Diagnoses Diagnosis Spinal stenosis of lumbar region with neurogenic claudication Spinal stenosis, lumbar region, with neurogenic claudication Non-toxic multinodular goiter Nontoxic multinodular goiter documented [...] Directives occurred with: Not Discussed Care Teams Poultry Inseminator Relationship Specialty Start Date End Date Shazia Bee MD [address] [place] [address] [place] [phone] PCP - General Family Medicine 10/30/23 documented as of this encounter
--- OUTSIDE RECORDS SUMMARY | 2024-04-01 20:47 | External Medical Summary | Summary of Care ---
Author Name Unknown Organization [facility] Address [address] [place] [address] Phone [phone] Care Team Providers Care Construction Carpenters Helper Name Role Phone Shazia Bee MD Primary Care Provide r Reason for Referral * Ancillary Services (Within 10 days (routine)) - Authorized Specialty Diagnoses / Procedures Referred By Contac t Referred To Contact Gastroenterology Diagnoses Blood in stool Hx of necrotizing fasciitis Arlet Groves MD [address] [place] [address] [place] [phone] Phone: tel: fax: Referral ID Status Reason Start Date Expiration Date Visits Requested Visits Authorized [id number] Authorized Ancillary Services Required 4 [phone] Question Answer Referral Priority Within 10 days (routine) Where should this appointment be scheduled? Aditya Comments ALERT: Do not order for pediatric patients (18 years or younger). Cancel off screen and order PEDS GASTROENTEROLOGY CONSULT (Type: 1 visit only-Evaluate and Treat) The following Pt. Instructions are available: - Gastro Colonoscopy Prep Instructions [[id number]] - Gastro Colonoscopy Prep Instructions (Filipino Version) [[id number]] Go to the Pt. Instructions section within the Visit Navigator to access. Colonoscopy ASGE Guidelines: Hx of nec fasc, recommend close f/u; blood in stool ADDITIONAL INFORMATION 1. Is the patient on Coumadin? No 2. Is the patient on Pradaxa? No Reason for Visit * Reason Comments Re-Check Encounter Details Date Type Department Care Team (Latest Contact Info) Description 01/25/2024 2:00 PM EST Office Visit Family Medicine [address] [place] [phone] Arlet Groves MD [address] [place] [address] [place] [phone] Spinal stenosis of lumbar region with neurogenic claudication*; Degeneration of intervertebral disc of lumbar region with discogenic back pain and lower extremity pain; DDD (degenerative disc disease), cervical; Blood in stool; Hx of necrotizing fasciitis; Other polyneuropathy; COVID-19 vaccination refused; Moderate episode of recurrent major depressive disorder (HCC); Orthostatic hypotension; Tobacco use disorder; Severe obesity with body mass index (BMI) of 35.0 to 39.9 with serious comorbidity (HCC) Allergies No known active allergiesdocumented as of this encounter (statuses as of 01/25/2024) Medications BLOOD PRESSURE CUFF MISCIndications:F all for [...] each evening 180 Tablet 1 024 Active rOPINIRole HCl 2 MG Oral Tablet (Requip)Indicatio ns:RLS (restless legs syndrome) TAKE ONE TABLET BY MOUTH ONCE DAILY IN THE EVENING 90 Tablet 024 Active Sucralfate 1 GM [...] if needed for muscle spasms 90 Tablet 11/04/2 024 Active Atorvastatin Calcium 40 MG Oral [...] Active Wegovy 0.5 MG/0.5ML Subcutaneous Solution Auto-injector (Semaglutide-Yelp Management)Indica tions:Obesity (BMI 30-39.9) Inject 0.5 mg [...] bedtime. for pain.. 180 Tablet 3 Active valACYclovir HCl 1 GM Oral Tablet (Valtrex) as needed. 022 2023 Discontinued Gabapentin 600 MG Oral Tablet (Neurontin)Indica tions:Spinal stenosis of lumbar region with neurogenic claudication take 1 tablet in the morning, 1 tablet at noon and 1 tablet before bedtime 270 Tablet 1 024 2023 Discontinued(R efill) Meloxicam 15 MG Oral Tablet (Mobic)Indication s:Lumbar degenerative disc disease,DDD (degenerative disc disease), cervical Take 1 Tablet by mouth in the morning. for pain.. 90 Tablet 1 024 2023 Discontinued(R efill) Wegovy 0.25 MG/0.5ML Subcutaneous Solution Auto-injector (Semaglutide-Weig ht Management) Inject 0.25 mg (1 pen) under the skin once a week. 2 mL 5 12/31/19 24 8:56 AM EDT 024 2023 Discontinued documented as of this encounter (statuses as of 01/25/2024) Active Problems Problem Noted Date Diagnosed Date [...] as of this encounter (statuses as of 01/25/2024) Resolved Problems Problem Noted Date Diagnosed Date [...] Dr. Shima De Jesus CRC- Keri Zaman ([phone]) [facility] CRC- Cate Trinidad ([phone]) [facility] CRC- Julia Villafana ([phone]) Diagnosis changed due to Research Module. Go to Snapshot for study details. Anxiety 04/26/2015 11/20/2016 Recurrent major depressive disorder 04/14/2014 06/21/2019 Adrenal insufficiency 12/12/20132016 JAMESON [facility] RESEARCH OTHER*[id number] 11/02/2013 03/19/2016 Overview (03/19/2016): Patient has completed [...] as of this encounter (statuses as of 01/25/2024) Immunizations Name Administration Dates Next Due Pneumococcal Conjugate Vacci ne, 20-valent ([id number]) 11/15/2021 Pneumococcal Polysaccharide PPV23 (Pneumovax) 06/26/2008 Seasonal [...] Sign Reading Time Taken Comments Blood Pressure 100/62 01/25/2024 1:46 PM EST Pulse 88 01/25/2024 1:46 PM EST Temperature 35.4 C (95.7 F) 01/25/2024 1:46 PM ES T Respiratory Rate - - Oxygen Saturation 95% 01/25/2024 1:46 PM EST Inhaled Oxygen Concentration - - Weight 101.2 kg (223 lb) 01/25/2024 1:46 PM EST Height 165.1 cm (5' 5") 01/25/2024 1:46 PM EST Body Mass Index 37.11 01/25/2024 1:46 PM EST documented in this encounter Functional [...] * Octavia Vargas, Arlet Kraus MD - 01/25/2024 1:49 PM EST Images from the original note were not included. History of Present Illness Tracy Benavides is a 58 year old female that presents for Re-Check. Pt of Dr Bee. Needs refill of the gabapentin. Uses for pain, will be seeing [facility] tomorrow. Takes meloxicam once daily. Opiates did help, had them after she had nec fasc. Depression- PHQ score today 16. States that her mood hasn't been great. Sees [facility] in [place]. Is on mertazepine. No SI or HI. Due for colonoscopy. Had nec fasc in the past. Last done in Apr 2020, they recommend more frequent follow up. Is having blood in the stool recently. Smoking- smokes about a pack per day since age 11. Not interested in quitting right now. Tried patches and gum. Has some stress at home, has custody of her granddaughter. Not interested in Covid vaccines. Uses lasix about 3x week for leg swelling. Is on midodrine for orthostatic hypotension. PHQ Adult 01/25/2024 13:51 Depression Screening (PHQ2_9)-Adult (Pt Reported) Little interest or pleasure in doing things More than half the days [2] Feeling down, depressed or hopeless More than half the days [2] Trouble falling or staying asleep, or sleeping too much Nearly everyday [3] Feeling tired or having little energy Nearly everyday [3] Poor appetite or overeating Not at all [0] Feeling bad about yourself - or that you are a failure, or have let yourself or your family down Several days [1] Trouble concentrating on things, such as reading the newspaper or watching television More than half the days [2] Moving or speaking so slowly that other people could have noticed. Or the opposite - being so fidgety or restless that you have been moving around a lot more than usual Nearly everyday [3] Thoughts that you would be better off , or of hurting yourself Not at all [0] PHQ Adult Total Score 16 PHQ Adult Score Description Moderately Severe Depression Depression Screening (PHQ2) - Adult Little interest or pleasure in doing things More than half the days [2] Feeling down, depressed or hopeless More than half the days [2] Details Patient-reported Physical Exam BP 100/62 | Pulse 88 | Temp 95.7 F (35.4 C) (Infrared ) | Ht 5' 5" (1.651 m) | Wt 223 lb (101.2kg) | SpO2 95% | BMI 37.11 kg/m | BSA 2.15 m Physical Exam Vitals and nursing note reviewed. Constitutional: General: She is not in acute distress. HENT: Head: Normocephalic and atraumatic. Eyes: Extraocular Movements: Extraocular movements intact. Neck: Thyroid: No thyromegaly. Cardiovascular: Rate and Rhythm: Normal rate and regular rhythm. Pulmonary: Breath sounds: Normal breath sounds. No wheezing or rhonchi. Abdominal: General: Bowel sounds are normal. There is no distension. Palpations: Abdomen is soft. Tenderness: There is no abdominal tenderness. Musculoskeletal: Cervical back: Normal range of motion and neck supple. Right lower leg: Edema present. Left lower leg: Edema present. Comments: Trace edema bilaterally; L leg held straight at rest Skin: General: Skin is warm and dry. Findings: No lesion or rash. Neurological: Mental Status: She is alert and oriented to person, place, and time. Psychiatric: Mood and Affect: Mood normal. Behavior: Behavior normal. Assessment and Plan Spinal stenosis of lumbar region with neurogenic claudication Chronic pain related to back issues. She is on gabapentin 600 mg three times daily. Took herself down to twice a day. States that she does not feel it really works. Interested in weaning off. We willtake it down to 400 mg and if no worsening of symptoms, can consider weaning further at next visit.To see pain management tomorrow for appointment - Gabapentin 400 MG Oral Capsule (Neurontin); Take 1 Capsule by mouth in the morning and 1 Capsule at noon and 1 Capsule before bedtime. Lumbar degenerative disc disease; DDD cervical As above. Feels that the meloxicam wears off by afternoon. Discussed that 15 mg is the maximum daily dose. Can try 7.5 mg twice a day however. - Meloxicam 7.5 MG Oral Tablet (Mobic); Take 1 Tablet by mouth in the morning and 1 Tablet before bedtime. for pain.. Blood in stool; Hx of necrotizing fasciitis Chronic issues. Patient states that she is overdue for a colonoscopy as she had to cancel the previously scheduled one. We will put in referral to GI for repeat at this time - COLONOSCOPY, GI REFERRAL OP COVID-19 vaccination refused Patient declines COVID vaccine Moderate episode of recurrent major depressive disorder (HCC) PHQ score today elevated. Patient is under the care of Psychiatry. Denies suicidal ideation and contracts for safety. Likely worsened by her chronic pain issues Orthostatic hypotension Is on midodrine, to continue Tobacco use disorder Up-to-date lung cancer screening. She declines tobacco cessation counseling at this time. Severe obesity with body mass index (BMI) of 35.0 to 39.9 with serious comorbidity (HCC) Recommend healthy lifestyle, has difficulty with exercise due to her chronic knee issues and back issues Wrap-Up Follow Up: Return in about 3 months (around 04/26/2024) for Return with Physician. | For: Return with Physician Time: I spent a total of 30-39 minutes (exact time 39 mins) on the date of service in preparation, delivery, and documentation of the care provided to Tracy Benavides excluding any time spent in the performance of separately billed services. documented in this encounter Nursing Notes * Angela Stallworth CMA - 01/25/2024 1:54 PM EST Was advised needed seen for Gabapentin for refills documented in this encounter Plan of Treatment Upcoming Encounters Date Type Department Care Team (Late st Contact Info) Description 04/27/2024 1:40 PM EST Office Visit Family Medicine [address] [place] [phone] Arlet Groves MD [address] [place] [address] [place] [phone] 05/24/2024 9:00 AM EDT Office Visit Cardiology [address] [place] [address] Quinn Uriostegui PA-C [address] [place] [address] 06/20/2024 8:40 AM EDT Office Visit Neurology [facility] [address] [place] [address] Cesar Palma MD [address] [facility] [place] [address] 10/18/2024 12:30 PM EDT Imaging Radiology [address] [place] [address] 01/30/2025 1:20 PM EST Office Visit Rheumatology [address] [place] [address] Isidro Phillips MD [address] [place] [address] [place] [address] Scheduled Procedures Name Priority Associated Diagnoses Date/Ti me COLONOSCOPY FLEXIBLE PROXIMAL DIAGNOSTIC Recall History of colon polyps Scheduled Referrals Name Type Priority Associated Diagnoses Orde r Schedule COLONOSCOPY, GI REFERRAL OP Referral Within 10 days (routine) Blood in stool Hx of necrotizing fasciitis Ordered: 01/25/2024 Health Maintenance Due Date Last Done Comments COVID-19 Vaccine (#1) 1970 Hepatitis B Vaccine (1 of 3 - 19+ 3-dose series) 1984 Fecal Occult Blood Test 2010 Sigmoidoscopy 2010 Cologuard 06/02/2021 06/02/2018 Colonoscopy 04/24/2023 04/24/2020, 04/24/2020 Colorectal Cancer Screening 04/24/2023 Mammogram 10/14/2024 10/15/2023, 10/01, 08/30/2021, Additional history exists DISCUSS TOBACCO CESSATION (REFER TO SMARTSET #1493) 01/24/2025 01/25/2024 (Discussed) Depression Monitoring 01/24/2025 01/25/2024 [...] this encounter Medical Devices Implanted Type Area Punch Press Operator Helper Device Identifier Shelf Expiration Date Model / Serial / Lot Wildwood Arthrodesis Nail, Left Implanted:Qty: 1 on 06/10/2012 [place] [facility] [place] - Non Human Left: Leg Upper ALFONZO 04/01/2016 [id number] S / / [id number] Screw Locking 1896-1365s - [id number] Implanted:Qty: 1 on 06/10/2012 at [place] [facility] [place] Left: Leg Upper ALFONZO : TRAUMA 08/29/2013 [id number] S / / [id number] Screw Locking 1896-5030s - [id number] Implanted:Qty: 1 on 06/10/2012 at [place] [facility] [place] ALFONZO : TRAUMA 04/29/2013 4840-9437 S / / [id number] Screw Threaded Lckg 5x42.5mm - [id number] Implanted:05/31 (Quantity not on file) Left: Leg Upper ALFONZO : ORTHOPAEDICS 12/31/2015 9014-2973 S / / [id number] Screw Locking 1896-5040s - [id number] Implanted:Qty: 1 on 06/10/2012 at [place] [facility] [place] Left: Leg Upper ALFONZO : TRAUMA 07/30/2014 9089-6963 S / / [id number] Screw Compression 1825-0000s - [id number] Implanted:Qty: 1 on 06/10/2012 at [place] [facility] [place] Left: Leg Upper ALFONZO : TRAUMA 12/30/2012 [id number] S / / [id number] Screw Shaft 1891-5045s - [id number] Implanted:Qty: 1 on 06/10/2012 at [place] [facility] [place] Left: Leg Upper ALFONZO : ORTHOPAEDICS 12/31/2015 1206-2875 S / / [id number] Mesh Vicryl 12 X 12 Vkm-L - [id number] Implanted:Qty: 1 on 04/25/2020 by Dejuan Kaufman MD at [place] [facility] [place] N/A: Abdomen JNJ : [employer] 04/29/2024 VKM-L / / [id number] Mesh Soft [id number] - [id number] Implanted:Qty: 1 on 04/25/2020 by Dejuan Kaufman MD at [place] [facility] [place] N/A: Abdomen CR BARD : DAVOL [id number] 07/27/2024 [id number] / / [id number] documented as of this encounter Visit Diagnoses Diagnosis Spinal stenosis of lumbar region with neurogenic claudication- Primary Spinal stenosis, lumbar region, with neurogenic claudication Degeneration of intervertebral disc of lumbar region with discogenic back pain and lower extremity pain DDD (degenerative disc disease), cervical Degeneration of cervical intervertebral disc Blood in stool Hx of necrotizing fasciitis Personal history of diseases of skin and subcutaneous tissue Other polyneuropathy COVID-19 vaccination refused Moderate episode of recurrent major depressive disorder (HCC) Orthostatic hypotension Tobacco use disorder Severe obesity with body mass index (BMI) of 35.0 to 39.9 with serious comorbidity (HCC) documented in this encounter Advance Directives * [...] Directives occurred with: Not Discussed Care Teams Construction Carpenters Helper Relationship Specialty Start Date End Date Shazia Bee MD [address] [place] [address] [place] [phone] PCP - General Family Medicine 10/30/23 documented as of this encounter
--- OUTSIDE RECORDS SUMMARY | 2024-04-01 20:47 | External Medical Summary | Summary of Care ---
Author Name Unknown Organization [facility] Address [address] [place] [address] Phone [phone] Care Team Providers Care Project Control Analyst Name Role Phone Shazia Bee MD Primary Care Provide r Reason for Visit * Reason Comments eRx-Medication Refill Encounter Details Date Type Department Care Team (Late st Contact Info) Description 01/23/2024 Refill Family Medicine [address] [phone] Shazia Bee MD [address] [place] [address] [place] [address] Lumbar degenerative disc disease; DDD (degenerative disc disease), cervical Allergies No known active allergiesdocumented as of this encounter (statuses as of 01/25/2024) Medications BLOOD PRESSURE CUFF MISCIndications:Fa ll for [...] 2 Tablets by mouth every morning. 10/20/19 Active Iron 325 (65 Fe) MG Oral Tablet Take 1 Tablet by mouth at bedtime. Active Magnesium 500 MG Oral Tablet Take 1 Tablet by mouth in the morning. Active valACYclovir HCl 1 GM Oral Tablet (Valtrex) as needed. 07/28/19 Active Pramoxine HCl 1 % External LotionIndications: [...] mL 5 4 8:56 AM EDT 11/20/19 24 Active Additional Information Patient not taking.Reported on [...] Delayed Release Particles (Cymbalta) 12/26/19 24 Active documented as of this encounter [...] Dr. Shima De Jesus CRC- Keri Zaman ([phone]) [facility]- Cate Trinidad ([phone]) [facility]- Julia Villafana ([phone]) Diagnosis changed due to Research Module. Go to Snapshot for study details. Anxiety 04/26/2015 11/20/2016 Recurrent major depressive disorder 04/14/2014 06/21/2019 Adrenal insufficiency 12/12/20132016 [facility] RESEARCH OTHER*[id number] 11/02/2013 03/19/2016 Overview (03/19/2016): Patient has completed [...] Next Due Pneumococcal Conjugate Vacci ne, 20-valent ([id number]) 11/15/2021 Pneumococcal Polysaccharide PPV23 (Pneumovax) 06/26/2008 Seasonal [...] Miscellaneous Notes * Telephone Encounter - Franchesca Villalobos, [facility] - 01/25/2024 9:15 AM ESTRefused Prescriptions: Disp Refills Meloxicam 15 MG Oral Tablet (Mobic) 90 Tab*0 Sig: TAKE ONE TABLET BY MOUTH IN THE MORNING for pain Refused By: FRANCHESCA VILLALOBOS Reason for Refusal: Too soon * Telephone Encounter - Interface, E-Rx Ss Inbound - 01/25/2024 6:04 AM EST Pending Prescriptions: Disp Refills Meloxicam 15 MG Oral Tablet [Pharmacy Med *90 Tab*0 Sig: TAKE ONE TABLET BY MOUTH IN THE MORNING for pain documented in this encounter Plan of Treatment Upcoming Encounters Date Type Department Care Team (Late st Contact Info) Description 01/25/2024 2:00 PM EST Office Visit Family Medicine [address] [phone] Arlet Groves MD [address] [place] [address] [place] [phone] 05/24/2024 9:00 AM EDT Office Visit Cardiology [address] [place] [address] Quinn Uriostegui PA-Mason [address] [place] [address] 06/20/2024 8:40 AM EDT Office Visit Neurology [facility] [place] [address] [facility] [place] [address] Cesar Palma MD [address] [place] [facility] [place] [address] 10/18/2024 12:30 PM EDT Imaging Radiology [address] [place] [address] 01/30/2025 1:20 PM EST Office Visit Rheumatology [place] [address] [employer] [place] [address] Franchesca Phillips MD [facility] [email or web address] [place] [address] Scheduled Procedures Name Priority Associated Diagnoses Date/Ti me COLONOSCOPY FLEXIBLE PROXIMAL DIAGNOSTIC Recall History of colon polyps Health Maintenance Due Date Last Done Comments DISCUSS TOBACCO CESSATION (REFER TO SMARTSET #1344) 1965 COVID-19 Vaccine (#1) 1970 Hepatitis B [...] this encounter Medical Devices Implanted Type Area Tree Pruner Device Identifier Shelf Expiration Date Model / Serial / Lot Alfonzo Arthrodesis Nail, Left Implanted:Qty: 1 [place] [facility] [place] Human Left: Leg Upper ALFONZO 04/01/2016 [id number] S / / [id number] Screw Locking 1896-5035s - [id number] Implanted:Qty: 1 on 06/10/2012 [place] [facility] [place]: Leg Upper ALFONZO : TRAUMA 08/29/2013 6260-1328 S / / [id number] Screw Locking 1896-5030s - [id number] Implanted:Qty: 1 on 06/10/2012 [place] [facility] [place] ALFONZO : TRAUMA 04/29/2013 2882-0131 S / / [id number] Screw Threaded Lckg 5x42.5mm - [id number] Implanted:05/31 (Quantity not on file) Left: Leg Upper ALFONZO : ORTHOPAEDICS 12/31/2015 6261-7056 S / / [id number] Screw Locking 1896-5040s - [id number] Implanted:Qty: 1 on 06/10/2012 [place] [facility] [place]: Leg Upper ALFONZO : TRAUMA 07/30/2014 1556-2367 S / / [id number] Screw Compression 1825-0000s - [id number] Implanted:Qty: 1 on 06/10/2012 at [facility] Left: Leg Upper ALFONZO : TRAUMA 12/30/2012 6228-9719 S / / [id number] Screw Shaft 1891-5045s - [id number] Implanted:Qty: 1 on 06/10/2012 [place] [facility] [place]: Leg Upper ALFONZO : ORTHOPAEDICS 12/31/2015 6529-7470 S / / [id number] Mesh Vicryl 12 X 12 Vkm-L - [id number] Implanted:Qty: 1 on 04/25/2020 by Dejuan Kaufman MD [place] [facility] [place] N/A: Abdomen JNJ : [employer] 04/29/2024 VKM-L / / [id number] Mesh Soft [id number] - [id number] Implanted:Qty: 1 on 04/25/2020 by Dejuan Kaufman MD [place] [facility] [place]/A: Abdomen CR BARD : DAVOL [id number] 07/27/2024 [id number] / / [id number] documented as of this encounter Visit Diagnoses Diagnosis Lumbar degenerative disc disease Degeneration of lumbar or lumbosacral intervertebral disc DDD (degenerative disc disease), cervical Degeneration of cervical intervertebral disc documented in this encounter Advance [...] Directives occurred with: Not Discussed Care Teams Project Control Analyst Relationship Specialty Start Date End Date Shazia Bee MD [address] [place] [address] [place] [phone] PCP - General Family Medicine 10/30/23 documented as of this encounter
--- OUTSIDE RECORDS SUMMARY | 2024-04-01 20:47 | External Medical Summary | Summary of Care ---
Author Name Unknown Organization [facility] Address [address] [facility] [place] [address] Phone [phone] Care Team Providers Care Machine Sizer Name Role Phone Shazia Bee MD Primary Care Provide r Reason for Visit * Reason Onset Date Comments Appointment 01/25/2024 Colonoscopy Encounter Details Date Type Department Care Team (Late st Contact Info) Description 01/25/2024 Telephone Family Medicine [address] [place] [phone] Arlet Groves MD [address] [place] [address] [place] [phone] Appointment (Colonoscopy ) Allergies No known active allergiesdocumented as of [...] skin once a week. 2 mL 01/20/20 Active DULoxetine HCl 60 MG Oral Capsule [...] pain.. 180 Tablet 3 01/25/20 24 Active documented as of this encounter [...] Shima [facility]- Keri Zaman ([phone]) [facility]- Cate Trinidad ([phone]) [facility] CRC- Julia Villafana ([phone]) Diagnosis changed due to Research Module. Go to Snapshot for study details. Anxiety 04/26/2015 11/20/2016 Recurrent major depressive disorder 04/14/2014 06/21/2019 Adrenal insufficiency 12/12/20132016 FORCE TJR RESEARCH OTHER*[id number] 11/02/2013 03/19/2016 Overview (03/19/2016): Patient has completed [...] Next Due Pneumococcal Conjugate Vacci ne, 20-valent ([id number]) 11/15/2021 Pneumococcal Polysaccharide PPV23 (Pneumovax) 06/26/2008 Seasonal [...] encounter Miscellaneous Notes * Telephone Encounter - Carolyn Keenan OSA - 01/25/2024 2:29 PM EST Tracy gray scheduled for colonoscopy for: Blood in stool [K92.1] Hx of necrotizing fasciitis [Z87.39] documented in this encounter Plan of Treatment Upcoming Encounters Date Type Department Care Team (Late st Contact Info) Description 04/27/2024 1:40 PM EST Office Visit Family Medicine [address] [place] [phone] Arlet Groves MD [address] [place] [address] [place] [phone] 05/24/2024 9:00 AM EDT Office Visit Cardiology [address] [place] [address] Quinn Uriostegui PA-C [address] [place] [address] 06/20/2024 8:40 AM EDT Office Visit Neurology [facility] [address] [place] [address] Cesar Palma MD [address] [place], [place] [id number] 10/18/2024 12:30 PM EDT Imaging Radiology [address] [place] [address] 01/30/2025 1:20 PM EST Office Visit Rheumatology [address] [place] [address] Isidro Phillips MD [facility] [place] [address] Scheduled Procedures Name Priority Associated Diagnoses Date/Ti [...] this encounter Medical Devices Implanted Type Area Ship Boss Device Identifier Shelf Expiration Date Model / Serial / Lot Torreon Arthrodesis Nail, Left Implanted:Qty: 1 on 06/10/2012 at [place] [facility] Tissue - Non Human Left: Leg Upper ALFONZO 04/01/2016 [id number] S / / [id number] Screw Locking 1896-5035s - [id number] Implanted:Qty: 1 on 06/10/2012 at OR [facility] Left: Leg Upper ALFONZO : TRAUMA 08/29/2013 3817-4106 S / / [id number] Screw Locking 1896-5030s - [id number] Implanted:Qty: 1 on 06/10/2012 at OR [facility] ALFONZO : TRAUMA 04/29/2013 2188-6812 S / / [id number] Screw Threaded Lckg 5x42.5mm - [id number] Implanted:05/31 (Quantity not on file) Left: Leg Upper ALFONZO : ORTHOPAEDICS 12/31/2015 3619-2473 S / / [id number] Screw Locking 1895040s - [id number] Implanted:Qty: 1 on 06/10/2012 at OR [facility] Left: Leg Upper ALFONZO : TRAUMA 07/30/2014 4942-5060 S / / [id number] Screw Compression 1825-0000s - [id number] Implanted:Qty: 1 on 06/10/2012 at OR [facility] Left: Leg Upper ALFONZO : TRAUMA 12/30/2012 7813-0662 S / / [id number] Screw Shaft 1895045s - [id number] Implanted:Qty: 1 on 06/10/2012 at OR [facility] Left: Leg Upper ALFONZO : ORTHOPAEDICS 12/31/20151359-9721 S / / [id number] Mesh Vicryl 12 X 12 Vkm-L - [id number] Implanted:Qty: 1 on 04/25/2020 by Dejuan Kaufman MD at OR [facility] N/A: Abdomen JNJ : [employer] 04/29/2024 VKM-L / / [id number] Mesh Soft [id number] - [id number] Implanted:Qty: 1 on 04/25/2020 by Dejuan Kaufman MD at OR [facility] N/A: Abdomen CR BARD : DAVOL [id number] 07/27/2024 [id number] / / [id number] documented as of this encounter Advance Directives [...] Directives occurred with: Not Discussed Care Teams Machine Sizer Relationship Specialty Start Date End Date Shazia Bee MD [address] [place] [address] [place] [address] PCP - General Family Medicine 10/30/23 documented as of this encounter
--- OUTSIDE RECORDS SUMMARY | 2024-04-01 20:47 | External Medical Summary | Summary of Care ---
Author Name Unknown Organization [facility] Address [address] [place] [address] Phone [phone] Care Team Providers Care Open Hearth Furnace Operator Helper Name Role Phone Shazia Bee MD Primary Care Provide r Reason for Visit * Reason Comments Rheum Follow Up Follow up - lupus Encounter Details Date Type Department Care Team (Latest Contact Info) Description 01/20/2024 1:20 PM EST Office Visit Rheumatology [place] [address] [place] [address] Isidro Phillips MD [facility] [place] [address] Lupus erythematosus tumidus*; Encounter for long-term (current) use of medications Allergies No known active allergiesdocumented as of [...] Delayed Release Particles (Cymbalta) 12/26/19 24 Active busPIRone HCl 10 MG Oral Tablet (Buspar) TAKE ONE TABLET BY MOUTH IN THE MORNING, at noon, and before bedtime for anxiety 270 Tablet 1 03/11/19 23 024 Discontin ued(Medic ation List Clean Up) documented as of this encounter (statuses as of 01/20/2024) Active Problems Problem Noted Date Diagnosed Date GERD (gastroesophageal reflux disease) 4 Food insecurity [...] Dr. Shima De Jesus CRC- Keri Zaman ([phone]) [facility] CRC- Cate Trinidad ([phone]) [facility] CRC- Julia Villafana ([phone]) Diagnosis changed due to Research Module. Go to Snapshot for study details. Anxiety 04/26/2015 11/20/2016 Recurrent major depressive disorder 04/14/2014 06/21/2019 Adrenal insufficiency 12/12/20132016 FORCE TJR RESEARCH OTHER*[id number] 11/02/2013 03/19/2016 Overview (03/19/2016): Patient has completed [...] Next Due Pneumococcal Conjugate Vacci ne, 20-valent (Tlyepjj27) 11/15/2021 Pneumococcal Polysaccharide PPV23 (Pneumovax) 06/26/2008 Seasonal [...] Day Cigarettes 0.5 42 Smokeless Tobacco: Never Tobacco Cessation:Ready to Q uit: Not Asked; Counseling Given: Not Answered Alcohol Use Standard Drinks/Week Comments Not Currently [...] Sign Reading Time Taken Comments Blood Pressure - - Pulse - - Temperature 36.3 C (97.3 F) 01/20/2024 12:[address] Respiratory Rate - - Oxygen Saturation - - Inhaled Oxygen Concentration - - Weight 98.9 kg (218 lb) 01/20/2024 12:58 PM EST Height - - Body Mass Index 36.28 11/05/2023 11:36 AM EDT documented in this encounter Functional Status * [...] documented in this encounter Progress Notes * Isidro Phillips MD - 01/20/2024 1:02 PM EST Subjective: Patient seen today for 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 Since the last visit she has been dong overall well on saphnelo. She still gets mild skin lesions but netter. Also on plaquenil. She did have an eye exam through Dr Rivera's office. It is not scanned into the chart. This was done in October. She does follow with Hematology Oncology as well as Dermatology. Reviewed recent hematology note-no concerns for a myelodysplastic syndrome.. She continues to struggle with chronic pain from her RSD. She has a fused left knee. She reports that she is going to see pain management todiscuss medications for her pain as she was failing injection therapies to the back. Musculoskeletal ROS: . Abnormal: joint pain and back pain . Pain scale (0-10): 7 Other ROS: . Constitutional: weight loss, trouble sleeping . Head headaches . Eyes: normal . Ears, nose, throat, mouth: dry mouth . Cardiovascular: chest pain . Respiratory: shortness of breath . Gastrointestinal: normal . Genitourinary: normal . Skin: See above . Neuro: RSD All other ros reviewed and negative Social History: Social History Tobacco Use Smoking status: Every Day Current packs/day: 0.50 Average packs/day: 0.5 packs/day for 42.0 years (21.0 ttl pk-yrs) Types: Cigarettes Smokeless tobacco: Never Substance Use Topics Alcohol use: Not Currently Vaping/E-Cigarette Use Vaping/E-Cigarette Use Never User Passive Exposure No Counseling Given? No Vaping/E-Cigarette Substances Nicotine No Other No Flavoring No THC No Cannabidiol (CBD) No Vaping/E-Cigarette Devices Disposable No Pre-filled or Refillable Cartridge No Refillable Tank No Pre-filled Pod No Current Outpatient Medications Medication Sig Dispense Refill BLOOD PRESSURE CUFF MISC for home BP monitoring 1 Kit 1 FOLIC ACID 800 MCG PO TABS Take 1 Tablet by mouth in the morning. CYANOCOBALAMIN (VITAMIN B-12) 100 MCG Tablet Take 1 Tablet by mouth in the morning. calcium-vit D 500mg-200 units per tab 500-200 MG-UNIT per tablet Take 2 Tablets by mouth every morning. Iron 325 (65 Fe) MG Oral Tablet Take 1 Tablet by mouth at bedtime. Magnesium 500 MG Oral Tablet Take 1 Tablet by mouth in the morning. valACYclovir HCl 1 GM Oral Tablet (Valtrex) as needed. Pramoxine HCl 1 % External Lotion Apply to back twice daily as needed (please provide lotion wand, pt lives alone) 222 mL 2 Aspirin EC 81 MG Oral Tablet Delayed Release Take 1 Tablet by mouth in the morning. hydrOXYzine HCl 25 MG Oral Tablet TAKE ONE TABLET BY MOUTH IN THE MORNING, at noon, in the evening,and before bedtime if needed for itching or anxiety 40 Tablet 0 traZODone HCl 100 MG Oral Tablet (Desyrel) Take 2 tablets for the first week and then reduce to just 1 tablet at bedtime. (Patient taking differently: Take 2 Tablets by mouth at bedtime. Take 2 tablets for the first week and then reduce to just 1 tablet at bedtime.) 30 Tablet 5 Mirtazapine 7.5 MG Oral Tablet (Remeron) Take 1 Tablet by mouth at bedtime. Ondansetron 4 MG Oral Tablet Disintegrating Place 1 Tablet on tongue every 8 hours as needed for Nausea or Vomiting. dissolve on tongue. 30 Tablet 5 Hydrocortisone 5 MG Oral Tablet (Cortef) 2 tab in the morning, and 1 tab around 2 pm, triple dose during illness, MDD 9 tabs 270 Tablet 3 Midodrine HCl 10 MG Oral Tablet (Proamatine) Take one tablet shortly before or upon rising in the morning, midday, and late afternoon (not later than 6 PM) 270 Tablet 3 Potassium Chloride ER 10 MEQ Oral Capsule Extended Release Take 1 Capsule by mouth in the morning and 1 Capsule before bedtime. 180 Capsule 1 Hydroxychloroquine Sulfate 200 MG Oral Tablet (Plaquenil) 2 tablets each evening 180 Tablet 1 Gabapentin 600 MG Oral Tablet (Neurontin) take 1 tablet in the morning, 1 tablet at noon and 1 tablet before bedtime 270 Tablet 1 Meloxicam 15 MG Oral Tablet (Mobic) Take 1 Tablet by mouth in the morning. for pain.. 90 Tablet 1 rOPINIRole HCl 2 MG Oral Tablet (Requip) TAKE ONE TABLET BY MOUTH ONCE DAILY IN THE EVENING 90 Tablet 0 Sucralfate 1 GM Oral Tablet (Carafate) TAKE ONE TABLET BY MOUTH AT BEDTIME. may also take additionally up to 4 times daily if needed for nausea, epigastric pain 360 Tablet 0 Trulance 3 MG Oral Tablet (Plecanatide) Take 3 mg by mouth daily. 30 Tablet 3 Baclofen 20 MG Oral Tablet TAKE ONE TABLET BY MOUTH IN THE MORNING, at noon, and before bedtime if needed for muscle spasms 90 Tablet 0 Atorvastatin Calcium 40 MG Oral Tablet (Lipitor) TAKE ONE TABLET BY MOUTH IN THE MORNING 90 Tablet 2 Furosemide 40 MG Oral Tablet (Lasix) TAKE ONE TABLET BY MOUTH DAILY NEEDED for swelling 90 Tablet 2 Pantoprazole Sodium 40 MG Oral Tablet Delayed Release (Protonix) Take 1 Tablet by mouth in the morning and 1 Tablet before bedtime. Do not crush, split or chew the tablet. 60 Tablet 5 Wegovy 0.5 MG/0.5ML Subcutaneous Solution Auto-injector (Semaglutide-Weight Management) Inject 0.5 mg under the skin once a week. 2 mL 0 DULoxetine HCl 60 MG Oral Capsule Delayed Release Particles (Cymbalta) Wegovy 0.25 MG/0.5ML Subcutaneous Solution Auto-injector (Semaglutide-Weight Management) Inject 0.25 mg (1 pen) under the skin once a week. (Patient not taking: Reported on 01/20/2024) 2 mL 5 No current facility-administered medications for this visit. Physical Exam: Temp 36.3 C (97.3 F) (Infrared ) | Wt 98.9 kg (218 lb) | BMI 36.28 kg/m | BSA 2.13 m General: alert, no distress, and well nourished HENT: normocephalic, external ears normal, no mucosal erythema, no mucosal edema, moist mucosa, no oral ulcers Eye Exam: PERRL, EOMI, conjunctiva are pink and non-injected, sclera clear Neck: supple, no adenopathy, thyroid normal size, non-tender, without nodularity Lymph: no palpable lymphadenopathy Heart: regular rate & rhythm and no gallops Lungs: clear to auscultation , no rales, wheezes or rhonchi Abdomen: abdomen soft, non-tender, and normal bowel sounds Skin: skin color, texture, turgor are normal, no rashes or significant lesions Musculoskeletal Exam: Diffuse soft tissue tenderness on exam Left leg is an extended position because of fusion at the knee Assessment: (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 Asked her to have the Plaquenil eye exam sent to us. Will remain on her IV treatment every 4 weeks. Plan: 1. Lab work ordered and given to her to get done in March 2. Continue with IV treatment saphnelo 300mg every 4 weeks 3. Remains on Plaquenil-have eye exam sent to us 4. Return to clinic 1 year Isidro Phillips MD Department of Rheumatology documented in this encounter Nursing Notes * Shima Lin LPN - 01/20/2024 12:56 PM EST Chief Complaint Patient presents with Rheum Follow Up Follow up - lupus documented in this encounter Plan of Treatment Upcoming Encounters Date Type Department Care Team (Late st Contact Info) Description 01/22/2024 2:00 PM EST Imaging Radiology [address] [place] [address] 05/24/2024 9:00 AM EDT Office Visit Cardiology [address] [place] [address] Quinn Uriostegui PA-C [address] [place] [address] 06/20/2024 8:40 AM EDT Office Visit Neurology [facility] [address] [facility] [place] [address] Cesar Palma MD [address] [facility] [address] 10/18/2024 12:30 PM EDT Imaging Radiology [address] [place] [address] 01/30/2025 1:20 PM EST Office Visit Rheumatology [place] [phone] [employer] [place] [address] Isidro Phillips MD [address] [place] [address] Pending Results Name Type Priority Associated Diagnoses Date /Time COMPREHENSIVE METABOLIC PANEL Lab Routine Lupus erythematosus tumidus Encounter for long-term (current) use of medications 01/20/2024 1:50 PM EST PROTEIN/ CREATININE RATIO, URINE Lab Routine Lupus erythematosus tumidus Encounter for long-term (current) use of medications 01/20/2024 1:50 PM EST URINALYSIS, REFLEX TO MICROSCOPIC Lab Routine Lupus erythematosus tumidus Encounter for long-term (current) use of medications 01/20/2024 1:50 PM EST COMPLEMENT C3 Lab Routine Lupus erythematosus tumidus Encounter for long-term (current) use of medications 01/20/2024 1:50 PM EST COMPLEMENT C4 Lab Routine Lupus erythematosus tumidus Encounter for long-term (current) use of medications 01/20/2024 1:50 PM EST Scheduled Procedures Name Priority Associated Diagnoses Date/Ti me COLONOSCOPY FLEXIBLE PROXIMAL DIAGNOSTIC Recall History of colon polyps Health Maintenance Due Date Last Done Comments DISCUSS TOBACCO CESSATION (REFER TO SMARTSET #7250) 1965 COVID-19 Vaccine (#1) 1970 Hepatitis B Vaccine (1 of 3 - 19+ 3-dose series) 1984 Fecal Occult Blood Test 2010 Sigmoidoscopy 2010 Depression Monitoring 12/12/2020 12/13/2019 Cologuard 06/02/2021 06/02/2018 Colonoscopy 04/24/2023 04/24/2020, 04/24/2020 Colorectal Cancer Screening 04/24/2023 Mammogram 10/14/2024 10/15/2023, 0804/2022, 08/30/2021, Additional history exists Diabetes Screening 08/20/2026 [...] this encounter Medical Devices Implanted Type Area Help Desk Consultant Device Identifier Shelf Expiration Date Model / Serial / Lot [place]fonzo Arthrodesis Nail, Left Implanted:Qty: 1 on 06/10/2012 [place] [facility] [place] - Non Human Left: Leg Upper ALFONZO 04/01/2016 0899-3354 S / / [id number] Screw Locking 1896-1668s - [id number] Implanted:Qty: 1 on 06/10/2012 [place] [facility] Left: Leg Upper ALFONZO : TRAUMA 08/29/2013 1722-6321 S / / [id number] Screw Locking 1896-5030s - [id number] Implanted:Qty: 1 on 06/10/2012 [place] [facility] ALOFNZO : TRAUMA 04/29/2013 7098-4353 S / / [id number] Screw Threaded Lckg 5x42.5mm - [id number] Implanted:05/31 (Quantity not on file) Left: Leg Upper ALFONZO : ORTHOPAEDICS 12/31/2015 9206-5707 S / / [id number] Screw Locking 1896-5040s - [id number] Implanted:Qty: 1 on 06/10/2012 [place] [facility] Left: Leg Upper ALFONZO : TRAUMA 07/30/2014 2675-8603 S / / [id number] Screw Compression 1825-0000s - [id number] Implanted:Qty: 1 on 06/10/2012 [place] [facility] Left: Leg Upper ALFONZO : TRAUMA 12/30/2012 9576-4447 S / / [id number] Screw Shaft 1891-5045s - [id number] Implanted:Qty: 1 on 06/10/2012 [place] [facility] Left: Leg Upper ALFONZO : ORTHOPAEDICS 12/31/2015 0291-1202 S / / [id number] Mesh Vicryl 12 X 12 Vkm-L - [id number] Implanted:Qty: 1 on 04/25/2020 by Dejuan Kaufman MD [place] [facility] N/A: Abdomen JNJ : [employer] 04/29/2024 VKM-L / / [id number] Mesh Soft 85i16kg - [id number] Implanted:Qty: 1 on 04/25/2020 by Dejuan Kaufman MD [place] [facility] N/A: Abdomen CR BARD : DAVOL [id number] 07/27/2024 [id number] / / [id number] documented as of this encounter Visit Diagnoses Diagnosis Lupus erythematosus tumidus- Primary Lupus erythematosus Encounter for long-term (current) use of medications Encounter for long-term (current) use of other medications documented in this encounter Advance Directives * [...] Directives occurred with: Not Discussed Care Teams Open Hearth Furnace Operator Helper Relationship Specialty Start Date End Date Shazia Bee MD [address] [place] [address] [place] [address] PCP - General Family Medicine 10/30/23 documented as of this encounter"
--- OUTSIDE RECORDS SUMMARY | 2024-04-01 20:47 | External Medical Summary | Summary of Care ---
Author Name Unknown Organization [facility] Address [address] [facility] [place] [address] Phone [phone] Care Team Providers Care Resource Management Planner Name Role Phone Shazia Bee MD Primary Care Provide r Reason for Visit * Reason Comments Outpatient Testing Encounter Details Date Type Department Care Team (Late st Contact Info) Description 01/20/2024 1:50 PM EST Laboratory Laboratory [address] [place] [phone] [place] [address] Non-toxic multinodular goiter Allergies No known active [...] PI: Dr. Shima Burns CRC- Keri Zaman ([phone]) [facility] CRC- Cate Trinidad ([phone]) [facility] CRC- Julia Villafana ([phone]) Diagnosis changed due to Research Module. Go to Snapshot for study details. Anxiety 04/26/2015 11/20/2016 Recurrent major depressive disorder 04/14/2014 06/21/2019 Adrenal insufficiency 12/12/20132016 FORCE TJR RESEARCH OTHER*[id number] 11/02/2013 03/19/2016 Overview (03/19/2016): Patient has completed [...] Next Due Pneumococcal Conjugate Vacci ne, 20-valent (Hyrawpx08) 11/15/2021 Pneumococcal Polysaccharide PPV23 (Pneumovax) 06/26/2008 Seasonal [...] Description 01/22/2024 2:00 PM EST Imaging Radiology [address] [place] [address] 05/24/2024 9:00 AM EDT Office Visit Cardiology [address] [place] [address] Quinn Uriostegui, ALE[place]-C [address] [place] [address] 06/20/2024 8:40 AM EDT Office Visit Neurology [facility] [address] [place] [address] Cesar Palma MD [address] [place] [facility] [place] [address] 10/18/2024 12:30 PM EDT Imaging Radiology [address] [place] [address] 01/30/2025 1:20 PM EST Office Visit Rheumatology [facility] [address] [place] [address] Isidro Phillips MD [address] [employer] [place] [address] Pending Results Name Type Priority Associated Diagnoses Date /Time TSH Lab Routine Non-toxic multinodular goiter 01/20/2024 1:56 PM EST Scheduled Procedures Name Priority Associated Diagnoses Date/Ti me COLONOSCOPY FLEXIBLE PROXIMAL DIAGNOSTIC Recall History of colon polyps Health Maintenance Due Date Last Done Comments DISCUSS TOBACCO CESSATION (REFER TO SMARTSET #7539) 1965 COVID-19 Vaccine (#1) 1970 Hepatitis B [...] this encounter Medical Devices Implanted Type Area Rail Switch Operator Device Identifier Shelf Expiration Date Model / Serial / Lot [place] Arthrodesis Nail, Left Implanted:Qty: 1 on 06/10/2012 [place] [facility] [place] - Non Human Left: Leg Upper ALFONZO 04/01/2016 3479-1349 S / / [id number] Screw Locking 1896-5035s - [id number] Implanted:Qty: 1 on 06/10/2012 [place] [facility] [place]: Leg Upper ALFONZO : TRAUMA 08/29/2013 2376-7398 S / / [id number] Screw Locking 1896-5030s - [id number] Implanted:Qty: 1 on 06/10/2012 [place] [facility] ALFONZO : TRAUMA 04/29/2013 0688-9766 S / / [id number] Screw Threaded Lckg 5x42.5mm - [id number] Implanted:05/31 (Quantity not on file) Left: Leg Upper ALFONZO : ORTHOPAEDICS 12/31/2015 2618-1407 S / / [id number] Screw Locking 1896-5040s - [id number] Implanted:Qty: 1 on 06/10/2012 at [place] [facility] [place] Left: Leg Upper ALFONZO : TRAUMA 07/30/2014 3917-2046 S / / [id number] Screw Compression 1825-0000s - [id number] Implanted:Qty: 1 on 06/10/2012 [place] [facility] Left: Leg Upper ALFONZO : TRAUMA 12/30/2012 8590-3241 S / / [id number] Screw Shaft 1891-5045s - [id number] Implanted:Qty: 1 on 06/10/2012 at [place] [facility] [place] Left: Leg Upper ALFONZO : ORTHOPAEDICS 12/31/2015 9033-7789 S / / [id number] Mesh Vicryl 12 X 12 Vkm-L - [id number] Implanted:Qty: 1 on 04/25/2020 by Dejuan Kaufman MD at [place] [facility] [place] N/A: Abdomen JNJ : [employer] 04/29/2024 VKM-L / / [id number] Mesh Soft [id number] - [id number] Implanted:Qty: 1 on 04/25/2020 by Dejuan Kaufman MD at [place] [facility] [place] N/A: Abdomen CR BARD : DAVOL [id number] 07/27/2024 [id number] / / [id number] documented as of this encounter Visit Diagnoses [...] Directives occurred with: Not Discussed Care Teams Resource Management Planner Relationship Specialty Start Date End Date Shazia eBe MD [address] [place] [address] [place] [address] PCP - General Family Medicine 10/30/23 documented as of this encounter
--- OUTSIDE RECORDS SUMMARY | 2024-04-01 20:48 | External Medical Summary ---
Author Name Unknown Address Unknown Organization K01:LABORATORY [facility] [place] - [address] [facility] [address] Laboratory Report Ordering Provider Test Date Status FRANCHESCA,ARIA 01/20/2024 13:50:52 Final Observation Date Value Abnormality Reference (Units ) Status Color of Urine by Auto 01/20/2024 13:50:52 Light Yellow Colorless, Light Yellow, Yellow, Dark Yellow Final Clarity, Urine 01/20/2024 13:50:52 Clear Clear Final Glucose [Mass/volume] in Urine by Automated test strip 01/20/2024 13:50:52 Negative Negative (mg/dL) Final Bilirubin.total [Presence] in Urine by Automated test strip 01/20/2024 13:50:52 Negative Negative Final Ketones [Mass/volume] in Urine by Automated test strip 01/20/2024 13:50:52 Negative Negative (mg/dL) Final Specific gravity, Urine 01/20/2024 13:50:52 1.009 1.003-1.030 Final Hemoglobin [Presence] in Urine by Automated test strip 01/20/2024 13:50:52 Negative Negative Final pH, Urine 01/20/2024 13:50:52 6.5 5.0-7.5 (Units) Final Protein [Mass/volume] in Urine by Automated test strip 01/20/2024 13:50:52 Negative Negative (mg/dL) Final Urobilinogen [Mass/volume] in Urine by Automated test strip 01/20/2024 13:50:52 Normal Normal (mg/dL) Final Nitrite [Presence] in Urine by Automated test strip 01/20/2024 13:50:52 Negative Negative Final Leukocyte esterase [Presence] in Urine by Automated test strip 01/20/2024 13:50:52 Large Abnormal Negative Final RBC, Urine 01/20/2024 13:50:52 0-2 0-2 (/HPF) Final WBC, Urine 01/20/2024 13:50:52 6-9 Abnormal 0-2 (/HPF) Final Bacteria [#/area] in Urine sediment by Microscopy high power field 01/20/2024 13:50:52 0-25 0-25 (/HPF) Final Performing Location LABORATORY [facility] [place] - [facility] [address] [facility] [address]
--- OUTSIDE RECORDS SUMMARY | 2024-04-01 20:48 | External Medical Summary ---
Author Name Unknown Address Unknown Organization K01:LABORATORY [facility] [place] - [address] [facility] [address] Laboratory Report Ordering Provider Test Date Status ARIA SORENSEN 01/20/2024 13:50:52 Final Normal: <150 mg/ g creatinine
High: 150-500 mg/g creatinine
Very High: >500 mg/g creatinine
Nephrotic: >3000 mg/g creatinine Observation Date Value Abnormality Reference (Units ) Status Protein/Creatinine [Ratio] in Urine 01/20/2024 13:50:52 <176 Above high normal <150 (mg/g ) Final Protein, Urine 01/20/2024 13:50:52 <6 (mg/dL) Final Creatinine, Urine 01/20/2024 13:50:52 34 (mg/dL) Final Performing Location LABORATORY [facility] [place] - [address] [place] [address]
--- OUTSIDE RECORDS SUMMARY | 2024-04-01 20:48 | External Medical Summary ---
Author Name Unknown Address Unknown Organization K01:LABORATORY [facility] [place] - [address] [address] Laboratory Report Ordering Provider Test Date Status ARIA SORENSEN 01/20/2024 13:50:52 Final Observation Date Value Abnormality Reference (Units ) Status Complement C3c [Mass/volume] in Serum or Plasma 01/20/2024 13:50:52 167 90-180 (mg/dL) Final Performing Location LABORATORY [facility] - [address] [address]
--- OUTSIDE RECORDS SUMMARY | 2024-04-01 20:48 | External Medical Summary | Summary of Care ---
Author Name Unknown Organization [facility] Address [address] [facility] [place] [address] Phone [phone] Care Team Providers Care Hi Lift Operator Name Role Phone Shazia Bee MD Primary Care Provide r Reason for Visit * Reason Comments eRx-Medication Refill Encounter Details Date Type Department Care Team (Late st Contact Info) Description 01/16/2024 Refill Gastroenterology [address] [place] [address] Sheryl Orellana CRNP [address] [place] [address] Nausea and vomiting, unspecified vomiting type Allergies No known active allergiesdocumented as of this encounter (statuses as of 01/18/2024) Medications BLOOD PRESSURE CUFF MISCIndications:F all for [...] 1 GM Oral Tablet (Valtrex) as needed. Active Pramoxine HCl 1 % External LotionIndications :Cutaneous lupus erythematosus Apply to back twice daily as needed (please provide lotion wanzuleika, pt lives alone) 222 mL 2 Active Aspirin EC 81 MG Oral Tablet Delayed Release Take 1 Tablet by mouth in the morning. Active hydrOXYzine HCl 25 MG Oral Tablet TAKE ONE TABLET BY MOUTH IN THE MORNING, at noon, in the evening, and before bedtime if needed for itching or anxiety 40 Tablet 022 Active busPIRone HCl 10 MG Oral Tablet (Buspar) TAKE ONE TABLET BY MOUTH IN THE MORNING, at noon, and before bedtime for anxiety 270 Tablet 1 023 Active Additional Information Patient taking differently: BID (.AM/PM), Reported on 01/08/2024 traZODone HCl 100 MG Oral Tablet (Desyrel)Indicati ons:Other insomnia Take 2 tablets for the first week and then reduce to just 1 tablet at bedtime. 30 Tablet 5 023 Active Additional Information Patient taking differently: 200 mg Oral HS, Take 2 tablets for the first week and then reduce to just 1 tablet at bedtime., Reported on 01/08/2024 Mirtazapine 7.5 MG Oral Tablet (Remeron) Take [...] before bedtime 270 Tablet 1 024 Active Meloxicam 15 MG Oral Tablet (Mobic)Indication s:Lumbar degenerative disc disease,DDD (degenerative disc disease), cervical Take 1 Tablet by mouth in the morning. for pain.. 90 Tablet 1 024 Active rOPINIRole HCl 2 MG Oral Tablet (Requip)Indicatio ns:RLS (restless legs syndrome) TAKE ONE TABLET BY MOUTH ONCE DAILY IN THE EVENING 90 Tablet 024 Active Wegovy 0.25 MG/0.5ML Subcutaneous Solution Auto-injector (Semaglutide-DecoSnap Management) Inject 0.25 mg (1 pen) under the skin once a week. 2 mL 5 12/31/19 24 8:56 AM EDT 024 Active Sucralfate 1 GM Oral Tablet [...] the tablet. 60 Tablet 5 024 Active Pantoprazole Sodium 40 MG Oral Tablet Delayed Release (Protonix)Indicat ions:Nausea and vomiting, unspecified vomiting type Take 1 Tablet by mouth in the morning and 1 Tablet before bedtime. Do not crush, split or chew the tablet. 60 Tablet 1 024 2023 Discontinued documented as of this encounter (statuses as of 01/18/2024) Active Problems Problem Noted Date Diagnosed Date [...] as of this encounter (statuses as of 01/18/2024) Resolved Problems Problem Noted Date Diagnosed Date [...] PI: Dr. Shima Burns CRC- Keri Zaman ([phone]) [facility] CRC- Cate Trinidad ([phone]) [facility] CRC- Julia Villafana ([phone]) Diagnosis changed due to Research Module. Go to Snapshot for study details. Anxiety 04/26/2015 11/20/2016 Recurrent major depressive disorder 04/14/2014 06/21/2019 Adrenal insufficiency 12/12/20132016 [facility]EARCH OTHER*[id number] 11/02/2013 03/19/2016 Overview (03/19/2016): Patient has completed [...] as of this encounter (statuses as of 01/18/2024) Immunizations Name Administration Dates Next Due Pneumococcal Conjugate Vacci ne, 20-valent ([id number]) 11/15/2021 Pneumococcal Polysaccharide PPV23 (Pneumovax) 06/26/2008 Seasonal [...] * Telephone Encounter - Jose Armando Lund [facility] - 01/18/2024 11:00 AM ESTSigned Prescriptions: Disp Refills Pantoprazole Sodium 40 MG Oral Tablet Jenniffer*60 Tab*5 Sig: Take 1Tablet by mouth in the morning and 1 Tablet before bedtime. Do not crush, split or chew the tablet.Authorizing Provider: SHERYL ORELLANA User: JOSE ARMANDO LUND * Telephone Encounter - Interface, [facility] Inbound - 01/18/2024 6:04 AM EST Pending Prescriptions: Disp Refills Pantoprazole Sodium 40 MG Oral Tablet Jenniffer*60 Tab*0 Sig: Take 1 Tablet by mouth in the morning and 1 Tablet before bedtime. Do not crush, split or chew the tablet. documented in this encounter Plan of Treatment Upcoming Encounters Date Type Department Care Team (Late st Contact Info) Description 01/20/2024 1:20 PM EST Office Visit Rheumatology [address] [place] [address] Isidro Phillips MD [facility] [employer] [place] [address] 05/24/2024 9:00 AM EDT Office Visit Cardiology [address] [place] [address] Quinn Uriostegui PA-C [address] [place] [address] 06/20/2024 8:40 AM EDT Office Visit Neurology [employer] [address] [place] [address] Cesar Palma MD [address] [facility] [place] [address] 10/18/2024 12:30 PM EDT Imaging Radiology [address] [place] [address] Scheduled Procedures Name Priority Associated Diagnoses Date/Ti me COLONOSCOPY FLEXIBLE PROXIMAL DIAGNOSTIC Recall History of colon polyps Health Maintenance Due Date Last Done Comments DISCUSS TOBACCO CESSATION (REFER TO SMARTSET #0806) 1965 COVID-19 Vaccine (#1) 1970 Hepatitis B [...] this encounter Medical Devices Implanted Type Area Molder Sweep Device Identifier Shelf Expiration Date Model / Serial / Lot [place] Arthrodesis Nail, Left Implanted:Qty: 1 on 06/10/2012 at [place] [facility] [place] Tissue - Non Human Left: Leg Upper ALFONZO 04/01/2016 [id number] S / / [id number] Screw Locking 1896-5035s - [id number] Implanted:Qty: 1 on 06/10/2012 at [place] [facility] [place] Left: Leg Upper ALFONZO : TRAUMA 08/29/2013 0016-2672 S / / [id number] Screw Locking 1896-5030s - [id number] Implanted:Qty: 1 on 06/10/2012 at [place] [facility] [place] ALFONZO : TRAUMA 04/29/2013 4078-1522 S / / [id number] Screw Threaded Lckg 5x42.5mm - [id number] Implanted:05/31 (Quantity not on file) Left: Leg Upper ALFONZO : ORTHOPAEDICS 12/31/2015 4543-2022 S / / [id number] Screw Locking 1896-5040s - [id number] Implanted:Qty: 1 on 06/10/2012 at [place] [facility] [place] Left: Leg Upper ALFONZO : TRAUMA 07/30/2014 2130-2816 S / / [id number] Screw Compression 1825-0000s - [id number] Implanted:Qty: 1 on 06/10/2012 at [place] [facility] [place] Left: Leg Upper ALFONZO : TRAUMA 12/30/2012 8096-0900 S / / [id number] Screw Shaft 1891-5045s - [id number] Implanted:Qty: 1 on 06/10/2012 at [place] [facility] [place] Left: Leg Upper ALFONZO : ORTHOPAEDICS 12/31/2015 3528-4008 S / / [id number] Mesh Vicryl 12 X 12 Vkm-L - [id number] Implanted:Qty: 1 on 04/25/2020 by Dejuan Kaufman MD at [place] [facility] [place] N/A: Abdomen JNJ : [employer] 04/29/2024 VKM-L / / [id number] Mesh Soft [id number] - [id number] Implanted:Qty: 1 on 04/25/2020 by Dejuan Kaufman MD at [place] [facility] [place] N/A: Abdomen CR BARD : DAVOL [id number] 07/27/2024 [id number] / / [id number] documented as of this encounter Visit Diagnoses Diagnosis Nausea and vomiting, unspecified vomiting type documented in this encounter Advance Directives * [...] Directives occurred with: Not Discussed Care Teams Hi Lift Operator Relationship Specialty Start Date End Date Shazia Bee MD [address] [place] [address] [place] [address] PCP - General Family Medicine 10/30/23 documented as of this encounter
--- OUTSIDE RECORDS SUMMARY | 2024-04-01 20:48 | External Medical Summary | Summary of Care ---
Author Name Unknown Organization [facility] Address [address] [facility] [place] [address] Phone [phone] Care Team Providers Care Sales Representative Printing Paper Name Role Phone Shazia Bee MD Primary Care Provide r Reason for Visit * Reason Comments Back Pain Neck Pain * Evaluate & Treat - Unlimited Visits (Within 10 days (routine)) - Authorized Specialty Diagnoses / Procedures Referred By Contac t Referred To Contact Pain Management / Pain Medicine Diagnoses Lumbar degenerative disc disease Spinal stenosis of lumbar region with neurogenic claudication DDD (degenerative disc disease), cervical Shazia Bee MD [address] [place] [address] [place] [address] Phone: tel: fax: Referral ID Status Reason Start Date Expiration Date Visits Requested Visits Authorized [id number] Authorized Specialty Services Required 10/30/2023 [id number] Encounter Details Date Type Department Care Team (Late st Contact Info) Description 01/08/2024 12:20 PM EST Office Visit [facility], [address] [place] [address] Anni Gomez MD [address] [place] [id number] History of lumbar fusion*; Other chronic pain Allergies No known active allergiesdocumented as of this encounter (statuses as of 01/08/2024) Medications BLOOD PRESSURE CUFF MISCIndications:Fa ll for [...] or anxiety 40 Tablet 02/26/20 22 Active busPIRone HCl 10 MG Oral Tablet (Buspar) TAKE ONE TABLET BY MOUTH IN THE MORNING, at noon, and before bedtime for anxiety 270 Tablet 1 03/11/19 23 Active Additional Information Patient taking differently: BID (.AM/PM), Reported on 01/08/2024 traZODone HCl 100 MG Oral Tablet (Desyrel)Indicatio [...] THE EVENING 90 Tablet 11/10/19 24 Active Pantoprazole Sodium 40 MG Oral Tablet Delayed Release (Protonix)Indicati ons:Nausea and vomiting, unspecified vomiting type Take 1 Tablet by mouth in the morning and 1 Tablet before bedtime. Do not crush, split or chew the tablet. 60 Tablet 1 11/06/19 24 Active Wegovy 0.25 MG/0.5ML Subcutaneous Solution Auto-injector (Semaglutide-Weigh t Management) Inject 0.25 mg (1 pen) under the skin once a week. 2 mL 5 4 8:56 AM EDT 11/20/19 24 Active Sucralfate 1 GM Oral Tablet [...] swelling 90 Tablet 2 01/04/20 24 Active documented as of this encounter (statuses as of 01/08/2024) Active Problems Problem Noted Date Diagnosed Date [...] as of this encounter (statuses as of 01/08/2024) Resolved Problems Problem Noted Date Diagnosed Date [...] PI: Dr. Shima Burns [facility]- Keri Zaman ([phone]) [facility]- Cate Trinidad ([phone]) [facility]- Julia Villafana ([phone]) Diagnosis changed due to Research Module. Go to Snapshot for study details. Anxiety 04/26/2015 11/20/2016 Recurrent major depressive disorder 04/14/2014 06/21/2019 Adrenal insufficiency 12/12/20132016 [employer]EARCH OTHER*[id number] 11/02/2013 03/19/2016 Overview (03/19/2016): Patient has completed [...] as of this encounter (statuses as of 01/08/2024) Immunizations Name Administration Dates Next Due Pneumococcal Conjugate Vacci ne, 20-valent ([id number]) 11/15/2021 Pneumococcal Polysaccharide PPV23 (Pneumovax) 06/26/2008 Seasonal [...] 04/24/2020 5:38 PM Rose Tran RN * Do you have serious [...] documented in this encounter Progress Notes * Anni Gomez MD - 01/08/2024 12:36 PM EST Subjective: Tracy Chen is a 58 year old female who we are seeing for Back Pain and Neck Pain Today, she presents with recurrent low back pain with radiation to the bilateral lower extremities R>L. Describes a dull, achy pain in her back with stabbing/tingling into the right leg. Increaseswith standing, walking, sitting. Some relief with laying down with a blanket under her back. Previously underwent ESIs with Dr. Bansal which she states only helped for 1 week at a time. Also states she underwent SCS trial through [employer] though I can't find records of that. Denies progressive motor weakness or numbness. No saddle anesthesia. MEDICATIONS: Current Outpatient Medications Medication Sig Dispense Refill Atorvastatin Calcium 40 MG Oral Tablet (Lipitor) TAKE ONE TABLET BY MOUTH IN THE MORNING 90 Tablet 2 Baclofen 20 MG Oral Tablet TAKE ONE TABLET BY MOUTH IN THE MORNING, at noon, and before bedtime if needed for muscle spasms 90 Tablet 0 Furosemide 40 MG Oral Tablet (Lasix) TAKE ONE TABLET BY MOUTH DAILY NEEDED for swelling 90 Tablet 2 Trulance 3 MG Oral Tablet (Plecanatide) Take 3 mg by mouth daily. 30 Tablet 3 Sucralfate 1 GM Oral Tablet (Carafate) TAKE ONE TABLET BY MOUTH AT BEDTIME. may also take additionally up to 4 times daily if needed for nausea, epigastric pain 360 Tablet 0 Wegovy 0.25 MG/0.5ML Subcutaneous Solution Auto-injector (Semaglutide-Weight Management) Inject 0.25 mg (1 pen) under the skin once a week. 2 mL 5 rOPINIRole HCl 2 MG Oral Tablet (Requip) TAKE ONE TABLET BY MOUTH ONCE DAILY IN THE EVENING 90 Tablet 0 Pantoprazole Sodium 40 MG Oral Tablet Delayed Release (Protonix) Take 1 Tablet by mouth in the morning and 1 Tablet before bedtime. Do not crush, split or chew the tablet. 60 Tablet 1 Meloxicam 15 MG Oral Tablet (Mobic) Take 1 Tablet by mouth in the morning. for pain.. 90 Tablet 1 Gabapentin 600 MG Oral Tablet (Neurontin) take 1 tablet in the morning, 1 tablet at noon and 1 tablet before bedtime 270 Tablet 1 Hydroxychloroquine Sulfate 200 MG Oral Tablet (Plaquenil) 2 tablets each evening 180 Tablet 1 Potassium Chloride ER 10 MEQ Oral Capsule Extended Release Take 1 Capsule by mouth in the morning and 1 Capsule before bedtime. 180 Capsule 1 Midodrine HCl 10 MG Oral Tablet (Proamatine) Take one tablet shortly before or upon rising in the morning, midday, and late afternoon (not later than 6 PM) 270 Tablet 3 Mirtazapine 7.5 MG Oral Tablet (Remeron) Take 1 Tablet by mouth at bedtime. traZODone HCl 100 MG Oral Tablet (Desyrel) Take 2 tablets for the first week and then reduce to just 1 tablet at bedtime. (Patient taking differently: Take 2 Tablets by mouth at bedtime. Take 2 tablets for the first week and then reduce to just 1 tablet at bedtime.) 30 Tablet 5 busPIRone HCl 10 MG Oral Tablet (Buspar) TAKE ONE TABLET BY MOUTH IN THE MORNING, at noon, and before bedtime for anxiety (Patient taking differently: 2 times a day.) 270 Tablet 1 hydrOXYzine HCl 25 MG Oral Tablet TAKE ONE TABLET BY MOUTH IN THE MORNING, at noon, in the evening,and before bedtime if needed for itching or anxiety 40 Tablet 0 Aspirin EC 81 MG Oral Tablet Delayed Release Take 1 Tablet by mouth in the morning. Pramoxine HCl 1 % External Lotion Apply to back twice daily as needed (please provide lotion wand, pt lives alone) 222 mL 2 valACYclovir HCl 1 GM Oral Tablet (Valtrex) as needed. Iron 325 (65 Fe) MG Oral Tablet Take 1 Tablet by mouth at bedtime. Magnesium 500 MG Oral Tablet Take 1 Tablet by mouth in the morning. calcium-vit D 500mg-200 units per tab 500-200 MG-UNIT per tablet Take 2 Tablets by mouth every morning. CYANOCOBALAMIN (VITAMIN B-12) 100 MCG Tablet Take 1 Tablet by mouth in the morning. FOLIC ACID 800 MCG PO TABS Take 1 Tablet by mouth in the morning. Hydrocortisone 5 MG Oral Tablet (Cortef) 2 tab in the morning, and 1 tab around 2 pm, triple dose during illness, MDD 9 tabs 270 Tablet 3 Ondansetron 4 MG Oral Tablet Disintegrating Place 1 Tablet on tongue every 8 hours as needed for Nausea or Vomiting. dissolve on tongue. 30 Tablet 5 BLOOD PRESSURE CUFF [facility] for home BP monitoring 1 Kit 1 No current facility-administered medications for this visit. ALLERGIES: Patient has no known allergies. PAST MEDICAL AND SURGICAL HISTORY: Past Medical History: Diagnosis Date [place]'s disease (HCC) Cervical radiculopathy Cervical spinal stenosis Cervicalgia Degenerative disc disease, cervical Displacement of cervical intervertebral disc without myelopathy Hypothyroidism Joint arthrodesis status 06/10/2012 left knee Loss of teeth due to trauma, extraction, or periodontal disease Lumbar degenerative disc disease 05/14/2012 Lumbar radiculopathy Lumbar stenosis Lupus Mixed dyslipidemia OA (osteoarthritis) Osteoarthritis, knee 05/14/2012 Pain in joint involving lower leg Reflex sympathetic dystrophy of the upper limb Tobacco use disorder Past Surgical History: Procedure Laterality Date BREAST BIOPSY Left benign DELIVERY 1985,1987,1990 COLONOSCOPY, DIAGNOSTIC (RECTUM) 04/24/2020 adenomatous polyp, diverticulosis, repeat 3 yrs / COLONOSCOPY FLEXIBLE PROXIMAL DIAGNOSTIC performed by Mart Kyle MD at [facility] COLOSTOMY N/A 11/11/2019 COLOSTOMY performed by Dejuan Kaufman MD at [facility] DRAINAGE OF RECTAL ABSCESS, DEEP Bilateral 11/11/2019 INCISION AND DRAINAGE DEEP RECTAL ABSCESS performed by Dejuan Kaufman MD at [facility] EGD, FLEXIBLE, DIAGNOSTIC 01/06/2022 ESOPHAGOGASTRODUODENOSCOPY (EGD), FLEXIBLE, TRANSORAL, DIAGNOSTIC performed by Mart Kyle MD at [facility] EGD, W/ENDOSCOPIC US N/A 09/06/2019 dilation CBD, sludge CBD/small amount of food in esophagus/ESOPHAGOGASTRODUODENOSCOPY (EGD), FLEXIBLE, TRANSORAL, ENDOSCOPIC ULTRASOUND performed by Mart Kyle MD at OR [facility] EGD, W/ENDOSCOPIC US 01/06/2022 Normal scope, evid of cholecystectomy, pancreatic paranchymal abnormalities consisting of diffuse echogenicity / no specimens collected / ESOPHAGOGASTRODUODENOSCOPY (EGD), FLEXIBLE, TRANSORAL, ENDOSCOPIC ULTRASOUND performed by Mart Kyle MD at [facility] ENDOSCOPY, ERCP, W/BIOPSY 10/19/2019 Choledocholithiasis, stent removed / ENDOSCOPIC RETROGRADE CHOLANGIOPANCREATOGRAPHY (ERCP) BIOPSY performed by Mart Kyle MD at ENDOSCOPY [facility] ERCP, DIAGNOSTIC, SPECIMEN COLLECTION N/A 09/06/2019 biliary papillary stenosis/1 plastic pancreatic stent ventral pancreatic duct/1 plastic biliary stent CBD/repeat 6 weeks/ENDOSCOPIC RETROGRADE CHOLANGIOPANCREATOGRAPHY (ERCP) DIAGNOSTIC performed by Mart Kyle MD at OR [facility] FUSION OF KNEE 06/10/2012 ARTHRODESIS KNEE performed by Marcellus Vallecillo MD at [place] [facility] IMPLANT MESH W/ ABD HERNIA REPR/DEBRIDE N/A 04/25/2020 IMPLANTATION MESH WITH INCISIONAL/VENTRAL HERNIA performed by Dejuan Kaufman MD at [facility] INFORMATION left knee surgery INJECT DX/THER SUBSTANCE INTERLAMINAR CERVICAL/THORACIC W IMAGE GUIDE 08/20/2022 INJECTION SPINE LUMBAR CERVICAL OR THORACIC performed by Heriberto Isidro Bansal, DO at OR [facility] INJECT DX/THER SUBSTANCE INTERLAMINAR LUMBAR/SACRAL W IMAGE GUIDE 06/07/2018 INJECTION SPINE LUMBAR OR SACRAL performed by [facility] Nimisha, DO at OR [facility] INJECT DX/THER SUBSTANCE INTERLAMINAR LUMBAR/SACRAL W IMAGE GUIDE 07/21/2019 INJECTION SPINE LUMBAR OR SACRAL performed by Heriberto Isidro Bansal, DO [facility] INJECT DX/THER SUBSTANCE INTERLAMINAR LUMBAR/SACRAL W IMAGE GUIDE 09/01/2019 INJECTION SPINE LUMBAR OR SACRAL performed by Heriberto Isidro Bansal, DO at OR [facility] INJECT DX/THER SUBSTANCE INTERLAMINAR LUMBAR/SACRAL W IMAGE GUIDE 07/31/2020 INJECTION SPINE LUMBAR OR SACRAL performed by [place] Isidro Bansal, DO at OR [facility] INJECT DX/THER SUBSTANCE INTERLAMINAR LUMBAR/SACRAL W IMAGE GUIDE 09/04/2020 INJECTION SPINE LUMBAR OR SACRAL performed by Heriberto Isidro Bansal, DO at OR [facility] INJECT DX/THER SUBSTANCE INTERLAMINAR LUMBAR/SACRAL W IMAGE GUIDE 05/21/2022 INJECTION SPINE LUMBAR OR SACRAL performed by [place] Isidor Bansal, DO at OR [facility] KNEE ARTHROSCOPY/SURGERY LAPAROSCOPY DIAGNOSTIC 11/11/2019 LAPAROSCOPY DIAGNOSTIC performed by Dejuan Kaufman MD at [facility] LAPAROSCOPY; CHOLECYSTECTOMY 10/24/2019 LUMBAR / SACRAL EPIDURAL, SINGLE LEVEL 06/28/2018 INJECTION TRANSFORAMINAL EPIDURAL LUMBAR OR SACRAL performed by Heriberto Desiree Bansal, DO at OR [facility] MUSCLE/FASCIA DEBRIDEMENT, FIRST 20 CM2 Right 2019 DEBRIDEMENT SKIN SUBCUTANEOUS TISSUE AND MUSCLE performed by Dejuan Kaufman MD at [place] [facility] REMOVAL OF SMALL INTESTINE W/FUSION N/A 04/25/2020 ENTERECTOMY SMALL BOWEL RESECTION performed by Dejuan Kaufman MD at [facility] REMOVE FOOT TENDON LESION Right 04/14/2019 EXCISION LESION TENDON FOOT performed by Sana Burgos DPM at [facility] REPAIR BOWEL OPENING N/A 04/25/2020 CLOSURE ENTEROSTOMY performed by [facility] at [facility] REPAIR INITIAL INCISIONAL OR VENTRAL HERNIA; REDUCIBLE N/A 04/25/2020 REPAIR INITIAL INCISIONAL /VENTRAL HERNIA REDUCIBLE performed by Dejuan Kaufman MD at [facility] SACROILIAC JOINT INJECT W/GUIDANCE 12/18/2021 INJECTION SACROILIAC JOINT performed by Heriberto Bansal DO at OR [facility] SACROILIAC JOINT INJECT W/GUIDANCE 02/19/2022 INJECTION SACROILIAC JOINT performed by Heriberto Bansal DO at OR [facility] SPINE SURGERY PROCEDURE NEC 11/2020 SUBQ DEBRIDEMENT, FIRST 20 CM2 N/A 11/05/2019 DEBRIDEMENT SKIN AND SUBCUTANEOUS TISSUE performed by Williams Barrientos MD at [facility] TOTAL ABD HYSTERECTOMY W/WO REMOVAL OF TUBE(S) 01/2004 has left ovary SOCIAL AND FAMILY HISTORY: Social History Tobacco Use Smoking status: Every [...] No Refillable Tank No Pre-filled Pod No Family History Problem Relation Name Age of Onset Alcohol and Other Disorders Associated Mother paresh garza Thyroid Disorder Mother paresh garza Arthritis Father petey garza Heart Disorder Father petey garza Hypertension Father petey garza Thyroid Disorder Father petey garza Cancer Sister remission Mental Disorder Daughter Mental Disorder Daughter chealsee chen Breast Cancer Aunt (Unspecified) Diabetes Uncle (Unspecified) Heart Disorder Uncle (Unspecified) Hypertension Uncle (Unspecified) Breast Cancer Aunt (Maternal) REVIEW OF SYSTEMS: A comprehensive ROS was performed and is negative except where noted in the HPI. Review of Interval Labs/Studies: - MRI lumbar spine 05/08/22 by my review does not show any high grade stenosis to explain her symptoms. There is moderate L4-5 central stenosis due to ligamentum hypertrophy as well as moderate bilateral L5 foraminal stenosis Objective: Physical Exam: Physical examination: Vitals: There were no vitals taken for this visit. Generally: Alert and Awake, No acute distress. Speech was appropriate and coherent. HEENT: Normoephalic/Atraumatic, No scleral icterus, Mucous membranes moist. Skin: No rashes or lesions at exposed areas with normal warmth. Neck: Trachea was midline, No gross masses Pulmonary: Respiratory effort was within normal limits, No audible wheezes Abdomen: Nondistended Psych: Normal mood and affect. Neuromuscular: MMT 5/5 intact bilateral lower extremities, left knee fused Sensation to light touch was intact on the right, but completely insensate on the left Reflexes were 2+ symmetrical Assessment: Tracy Chen is a 58 year old year-old female who returns with: ICD-10-CM 1. History of lumbar fusion Z98.1 2. Other chronic pain G89.29 Plan: - None. Previously failed ESIs. States she failed a trial of spinal cord stimulation though I was unable to find records. - Consider MTM clinic or MPP program referrals. She will need to discuss this with her PCP. Follow Up: None documented in this encounter Nursing Notes * Patricia Mckeon LPN - 01/08/2024 12:22 PM EST Patient here for low back, b/l lower ext pain and neck pain Difficulty getting out of bed Last lumbar injection -Caudal epidural steroid injection. 05-21-22 Cervical epidural steroid injection C7-T1. 08-22-22 documented in this encounter Plan of Treatment Upcoming Encounters Date Type Department Care Team (Late st Contact Info) Description 01/20/2024 1:20 PM EST Office Visit Rheumatology [facility] [address] [facility] [place] [address] Isidro Phillips MD [address] [place] [address] 05/24/2024 9:00 AM EDT Office Visit Cardiology [address] [place] [address] Quinn Uriostegui, PA-C [address] [place] [address] 06/20/2024 8:40 AM EDT Office Visit Neurology [facility] [address] [place] [phone] Cesar Palma MD [address] [place] [address] 10/18/2024 12:30 PM EDT Imaging Radiology [address] [place] [address] Scheduled Procedures Name Priority Associated Diagnoses Date/Ti me COLONOSCOPY FLEXIBLE PROXIMAL DIAGNOSTIC Recall History of colon polyps Scheduled Referrals Name Type Priority Associated Diagnoses Orde r Schedule PAIN MEDICINE REFERRAL OP Referral Within 10 days (routine) Lumbar degenerative disc disease Spinal stenosis of lumbar region with neurogenic claudication DDD (degenerative disc disease), cervical Ordered: 10/30/2023 Health Maintenance Due Date Last Done Comments DISCUSS TOBACCO CESSATION (REFER TO SMARTSET #[id number]) 1965 COVID-19 Vaccine (#1) 1970 Hepatitis B [...] this encounter Medical Devices Implanted Type Area Retail Support Manager Device Identifier Shelf Expiration Date Model / Serial / Lot Alfonzo Arthrodesis Nail, Left Implanted:Qty: 1 on 06/10/2012 at [place] [facility] Tissue - Non Human Left: Leg Upper ALFONZO 04/01/2016 5590-0368 S / / [id number] Screw Locking 1896-5035s - [id number] Implanted:Qty: 1 on 06/10/2012 at [place] [facility] Left: Leg Upper ALFONZO : TRAUMA 08/29/2013 4084-2590 S / / [id number] Screw Locking 1896-5030s - [id number] Implanted:Qty: 1 on 06/10/2012 at [place] [facility] ALFONZO : TRAUMA 04/29/2013 [id number] S / / [id number] Screw Threaded Lckg 5x42.5mm - [id number] Implanted:05/31 (Quantity not on file) Left: Leg Upper ALFONZO : ORTHOPAEDICS 12/31/2015 6774-1719 S / / [id number] Screw Locking 1896-5040s - [id number] Implanted:Qty: 1 on 06/10/2012 at [place] [facility] Left: Leg Upper ALFONZO : TRAUMA 07/30/2014 7085-6563 S / / [id number] Screw Compression 1825-0000s - [id number] Implanted:Qty: 1 on 06/10/2012 at [place] [facility] Left: Leg Upper ALFONZO : TRAUMA 12/30/2012 8545-7308 S / / [id number] Screw Shaft 1891-5045s - [id number] Implanted:Qty: 1 on 06/10/2012 at [place] [facility] Left: Leg Upper ALFONZO : ORTHOPAEDICS 12/31/2015 0079-8801 S / / [id number] Mesh Vicryl 12 X 12 Vkm-L - [id number] Implanted:Qty: 1 on 04/25/2020 by Dejuan Kaufman MD at [place] [facility] N/A: Abdomen JNJ : [employer] 04/29/2024 VKM-L / / [id number] Mesh Soft [id number] - [id number] Implanted:Qty: 1 on 04/25/2020 by Dejuan Kaufman MD at [place] [facility] N/A: Abdomen CR BARD : DAVOL [id number] 07/27/2024 [id number] / / [id number] documented as of this encounter Visit Diagnoses Diagnosis History of lumbar fusion- Primary Other chronic pain documented in this encounter Advance Directives * [...] Directives occurred with: Not Discussed Care Teams Sales Representative Printing Paper Relationship Specialty Start Date End Date Shazia Bee MD [address] [place] [address] [place] [phone] PCP - General Family Medicine 10/30/23 documented as of this encounter
--- OUTSIDE RECORDS SUMMARY | 2024-04-01 20:48 | External Medical Summary ---
Author Name Unknown Address Unknown Organization K01:LABORATORY [facility] - [address] [place] [address] Laboratory Report Ordering Provider Test Date Status DANA CABRERA 01/20/2024 13:56:54 Final Observation Date Value Abnormality Reference (Units ) Status TSH 01/20/2024 13:56:54 1.56 0.27-4.20 (uIU/mL) Final Performing Location LABORATORY [facility] - [address] [place] [address]
--- OUTSIDE RECORDS SUMMARY | 2024-04-01 20:48 | External Medical Summary | Summary of Care ---
Author Name Unknown Organization [facility] Address [address] [place] [address] Phone [phone] Care Team Providers Care [employer] Name Role Phone Shazia Bee MD Primary Care Provide r Reason for Visit * Reason Comments eRx-Medication Refill Encounter Details Date Type Department Care Team (Late st Contact Info) Description 01/01/2024 Refill Family Medicine [address] [phone] Shazia Bee MD [address] [place] [address] [place] [address] Nausea and vomiting, unspecified vomiting type; Lumbar degenerative disc disease Allergies No known active allergiesdocumented as of this encounter (statuses as of 01/04/2024) Medications Medication Sig Dispensed Refills Start Date End Date Status BLOOD PRESSURE CUFF MISCIndications:Fa ll for home BP monitoring 1 Kit 1 4 Active FOLIC ACID 800 MCG PO TABS Take 1 Tablet by mouth in the morning. 4 Active CYANOCOBALAMIN (VITAMIN B-12) 100 MCG Tablet Take 1 Tablet by mouth in the morning. Active calcium-vit D 500mg-200 units per tab 500-200 MG-UNIT per tablet Take 2 Tablets by mouth every morning. 0 Active Iron 325 (65 Fe) MG Oral Tablet Take 1 Tablet by mouth at bedtime. Active Magnesium 500 MG Oral Tablet Take 1 Tablet by mouth in the morning. Active valACYclovir HCl 1 GM Oral Tablet (Valtrex) as needed. 2 Active Pramoxine HCl 1 % External LotionIndications: Cutaneous lupus erythematosus Apply to back twice daily as needed (please provide lotion wanzuleika, pt lives alone) 222 mL 2 2 Active Aspirin EC 81 MG Oral Tablet Delayed Release Take 1 Tablet by mouth in the morning. Active hydrOXYzine HCl 25 MG Oral Tablet TAKE ONE TABLET BY MOUTH IN THE MORNING, at noon, in the evening, and before bedtime if needed for itching or anxiety 40 Tablet 2 Active busPIRone HCl 10 MG Oral Tablet (Buspar) TAKE ONE TABLET BY MOUTH IN THE MORNING, at noon, and before bedtime for anxiety 270 Tablet 1 3 Active Additional Information Patient taking differently: BID (.AM/PM), Reported on 12/14/2023 traZODone HCl 100 MG Oral Tablet (Desyrel)Indicatio ns:Other insomnia Take 2 tablets for the first week and then reduce to just 1 tablet at bedtime. 30 Tablet 5 3 Active Additional Information Patient taking differently: 200 mg Oral HS, Take 2 tablets for the first week and then reduce to just 1 tablet at bedtime., Reported on 10/29/2022 Mirtazapine 7.5 MG Oral Tablet (Remeron) Take 1 Tablet by mouth at bedtime. 3 Active Ondansetron 4 MG Oral Tablet Disintegrating Place 1 Tablet on tongue every 8 hours as needed for Nausea or Vomiting. dissolve on tongue. 30 Tablet 5 3 Active Hydrocortisone 5 MG Oral Tablet (Cortef)Indication s:History of adrenal insufficiency 2 tab in the morning, and 1 tab around 2 pm, triple dose during illness, MDD 9 tabs 270 Tablet 3 4 Active Midodrine HCl 10 MG Oral Tablet (Proamatine)Indica tions:Orthostatic hypotension,Hypote nsion, unspecified hypotension type Take one tablet shortly before or upon rising in the morning, midday, and late afternoon (not later than 6 PM) 270 Tablet 3 4 Active Potassium Chloride ER 10 MEQ Oral Capsule Extended ReleaseIndications :Hypokalemia Take 1 Capsule by mouth in the morning and 1 Capsule before bedtime. 180 Capsule 1 4 Active Hydroxychloroquine Sulfate 200 MG Oral Tablet (Plaquenil)Indicat ions:Cutaneous lupus erythematosus 2 tablets each evening 180 Tablet 1 4 Active Gabapentin 600 MG Oral Tablet (Neurontin)Indicat ions:Spinal stenosis of lumbar region with neurogenic claudication take 1 tablet in the morning, 1 tablet at noon and 1 tablet before bedtime 270 Tablet 1 4 Active Meloxicam 15 MG Oral Tablet (Mobic)Indications :Lumbar degenerative disc disease,DDD (degenerative disc disease), cervical Take 1 Tablet by mouth in the morning. for pain.. 90 Tablet 1 4 Active rOPINIRole HCl 2 MG Oral Tablet (Requip)Indication s:RLS (restless legs syndrome) TAKE ONE TABLET BY MOUTH ONCE DAILY IN THE EVENING 90 Tablet 4 Active Pantoprazole Sodium 40 MG Oral Tablet Delayed Release (Protonix)Indicati ons:Nausea and vomiting, unspecified vomiting type Take 1 Tablet by mouth in the morning and 1 Tablet before bedtime. Do not crush, split or chew the tablet. 60 Tablet 1 4 Active Wegovy 0.25 MG/0.5ML Subcutaneous Solution Auto-injector (Semaglutide-beRecruited t Management) Inject 0.25 mg (1 pen) under the skin once a week. 2 mL 5 4 Active Sucralfate 1 GM Oral Tablet (Carafate) TAKE ONE TABLET BY MOUTH AT BEDTIME. may also take additionally up to 4 times daily if needed for nausea, epigastric pain 360 Tablet 4 Active Trulance 3 MG Oral Tablet (Plecanatide) Take 3 mg by mouth daily. 30 Tablet 3 4 Active Baclofen 20 MG Oral TabletIndications: Lumbar degenerative disc disease TAKE ONE TABLET BY MOUTH IN THE MORNING, at noon, and before bedtime if needed for muscle spasms 90 Tablet 4 Active Furosemide 40 MG Oral Tablet (Lasix)Indications :Bilateral lower extremity edema TAKE ONE TABLET BY MOUTH DAILY NEEDED for swelling 90 Tablet 4 01/04/20 24 Discontinued Atorvastatin Calcium 40 MG Oral Tablet (Lipitor) TAKE ONE TABLET BY MOUTH IN THE MORNING 90 Tablet 4 01/04/20 24 Discontinued Baclofen 20 MG Oral TabletIndications: Lumbar degenerative disc disease TAKE ONE TABLET BY MOUTH THREE TIMES DAILY in the morning, at noon, and before bedtime if needed for muscle spasms 90 Tablet 4 01/04/20 24 Discontinued documented as of this encounter (statuses as of 01/04/2024) Active Problems Problem Noted Date Diagnosed Date [...] 12/17/2018 Hx of nonmelanoma skin cancer 06/18/2016 Overview: BCC L NLF 2015 LEVI (generalized anxiety disorder) 04/26/2015 Osteoarthritis of knee 06/29/2012 Joint arthrodesis status 06/10/2012 Overview: left knee Lumbar degenerative disc disease 05/14/2012 Dyslipidemia, goal LDL below 130 10/04/2010 Tobacco use disorder 01/08/2007 Reflex sympathetic dystrophy of lower limb 10/09 Overview: ICD-10 update of inactive term ADVANCE DIRECTIVE INFORMATION 05/30/2005 Overview: No, Advance Directive brochure given to patient at prior appointment. 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 Shima De Jesus [facility]- Keri Zaman ([phone]) [facility]- Cate Trinidad ([phone]) [facility]- Julia Villafana ([phone]) Diagnosis changed due to Research Module. Go to Snapshot for study details. Anxiety 04/26/2015 11/20/2016 Recurrent major depressive disorder 04/14/2014 06/21/2019 Adrenal insufficiency 12/12/20132016 FORCE TJR RESEARCH OTHER*[id number] 11/02/2013 03/19/2016 Overview: Patient has completed participation in this research study. 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 015 Osteoarthritis, knee 05/14/2012 013 Primary localized osteoarthrosis, lower leg 10/04/2010 10/24/2014 Dyslipidemia, goal to be determined 02/06/2009 12/03/2009 Overview: Per Lipid Taxonomy. Glucocorticoid deficiency 09/04/2008 Excessive menstruation 12/26/200306/11 LUMBAGO 10/05/2003 10/24/2014 Dental caries 11/17/2002 12/01/2012 Overview: ICD-10 update of inactive term JOINT PAIN-L-LEG 03/31/2002 10/24/2014 Overview: S/p left knee fusion on 06/10/12 Cervicalgia 03/31/2002 10/24/2014 CERVICAL DISC DISPLACMNT 07/20/2001 Mixed dyslipidemia 12/09/2000 9 Overview: Per Lipid Taxonomy. Hypothyroidism 10/24/2014 documented as of this encounter (statuses as of 01/04/2024) Immunizations Name Administration Dates Next Due Pneumococcal Conjugate Vacci ne, 20-valent ([id number]) 11/15/2021 Pneumococcal Polysaccharide PPV23 (Pneumovax) 06/26/2008 Seasonal [...] ages 0-17 years) Not on file 10/23/2023 Sex and Gender Information Value Date Recorded Sex Assigned at Female 06/13/2021 7:46 AM EDT Gender Identity Female 06/13/2021 7:46 AM EDT Sexual Orientation Straight 06/13/2021 7: 46 AM EDT Job Start Date Occupation Industry Not on file Not on file Not on file documented as of this encounter Functional Status Functional Status Response Date of Assess ment Are you deaf or do you have serious difficulty h earing? No 04/24/2020 Are you blind or do you have serious difficulty seeing, even when wearing glasses? No 04/24/2020 Do you have serious difficul ty walking or climbing stairs? (5 years old or older) No 04/26/2020 Do you have difficulty dress ing or bathing? (5 years old or older) No 04/24/2020 Because of a physical, menta l, or emotional condition, do you have difficulty doing errands alone such as visiting a doctor s office or shopping? (15 years old or older) No 04/24/19 Cognitive Status Response Date of Assessm ent Because of a physical, menta l, or emotional condition, do you have serious difficulty concentrating, remembering, or making decisions? (5 years old or older) No 04/24/2020 documented as of this encounter Miscellaneous Notes * Telephone Encounter - Shazia Bee MD - 01/04/2024 10:49 AM EST Signed Prescriptions: Disp Refills Baclofen 20 MG Oral Tablet 90 Tab*0 Sig: TAKE ONE TABLET BY MOUTH IN THE MORNING, at noon, and before bedtime if needed for muscle spasms Authorizing Provider: SHAZIA BEE Refused Prescriptions: Disp Refills Pantoprazole Sodium 40 MG Oral Tablet Jenniffer*30 Tab*0 Sig: Take 1 Table t by mouth in the morning 30 minutes before the first meal of the day. Do not crush, split or chew the tablet. Refused By: MARTA MARMOLEJO Reason for Refusal: Managed by another physician Reason for Refusal Comment: gastro * Telephone Encounter - Interface, E-Rx Ss Inbound - 01/03/2024 7:03 AM EST Pending Prescriptions: Disp Refills Baclofen 20 MG Oral Tablet 90 Tab*0 Sig: TAKE ONE TABLET BY MOUTH IN THE MORNING, at noon, and before bedtime if needed for muscle spasms Refused Prescriptions: Disp Refills Pantoprazole Sodium 40 MG Oral Tablet Jenniffer*30 Tab*0 Sig: Take 1 Tablet by mouth in the morning 30 minutes befor e the first meal of the day. Do not crush, split or chew the tablet. Refused By: MARTA MARMOLEJO Reason for Refusal: Managed by another physician Reason for Refusal Comment: gastro * Telephone Encounter - Marta Marmolejo [facility] - 01/02/2024 6:41 AM EDTPending Prescriptions: Disp Refills Baclofen 20 MG Oral Tablet 90 Tab*0 Sig: TAKE ONE TABLET BY MOUTH IN THE MORNING, at noon, and before bedtime if needed for muscle spasms Refused Prescriptions: Disp Refills Pantoprazole Sodium 40 MG Oral Tablet Jenniffer*30 Tab*0 Sig: Take 1 Tablet by mouth in the morning 30 minutes befor e the first meal of the day. Do not crush, split or chew the tablet. Refused By: MARTA MARMOLEJO Reason for Refusal: Managed by another physician Reason for Refusal Comment: gastro * Telephone Encounter - Marta Marmolejo [facility] - 01/02/2024 6:40 AM EDT [facility] is currently not authorized to approve refills for the pended medication(s) per refill protocol. Please approve if appropriate. Thank you, Marta Marmolejo, PharmD Clinical Pharmacist [facility] ([facility]) [phone] 01/02/2024, 6:40 AM Pending Prescriptions: Disp Refills Baclofen 20 MG Oral Tablet [Pharmacy Med *90 Tab*0 Sig: TAKE ONE TABLET BY MOUTH IN THE MORNING, at noon, and before bedtime if needed for muscle spasms Refused Prescriptions: Disp Refills Pantoprazole Sodium 40 MG Oral Tablet Jenniffer*30 Tab*0 Sig: Take 1 Tablet by mouth in the morning 30 minutes before the first meal of the day. Do not crush, split or chew the tablet. Refused By: MARTA MARMOLEJO Reason for Refusal: Managed by another physician Reason for Refusal Comment: gastro Last Visit: 10/30/2023 (in office), Visit date not found (telemedicine) Next Visit: Visit date not found If no future appointments scheduled, and last appointment is greater than a year ago, please schedule patient for a follow-up appointment Last date the medication was ordered: 12/06 Pharmacy: [id number] [facility] Is this request for a controlled substance? No Urine Drug Screen:No results found. However, due to the size of the patient record, not all encounters were searched. Please check Results Review for a complete set of results. Patient Phone Numbers Labs: Lab Results Component Value Date/Time CREAT 1.11 (A) 08/21/2023 12:00 AM CREAT 1.0 11/22/2019 12:25 PM POTASSIUM 4.5 08/21/2023 12:00 AM POTASSIUM 4.1 11/22/2019 12:25 PM TSH 1.04 03/31/2023 01:35 PM TSH 1.120 01/19/2023 12:00 AM TSH 0.63 2019 10:03 PM LDL 83 10/08/2023 09:40 AM LDL 82 05/02/2022 01:19 PM LDL 104 04/01/2019 03:51 PM LDL NOT APPLICABLE 04/01/2019 03:51 PM ALT 22 03/31/2023 01:35 PM ALT 41 (H) 10/19/2019 11:43 AM HGBA1C 5.7 (H) 03/31/2023 01:35 PM HGBA1C 5.4 11/02/2013 12:36 PM documented in this encounter Plan of Treatment Upcoming Encounters Date Type Department Care Team (Late st Contact Info) Description 01/08/2024 12:20 PM EST Office Visit [facility]ventional [facility], [facility] [address] [facility] [place] [address] Anni Gomez MD [address] [place], [place] [id number] 01/20/2024 1:20 PM EST Office [facility] [address] [facility] [place] [address] Isidro Phillips MD [facility] [place] [address] 05/24/2024 9:00 AM EDT Office Visit Cardiology [address] [place] [address] Quinn Uriostegui, PA-C [address] [facility] [place] [address] 06/20/2024 8:40 AM EDT Office Visit Neurology [facility] [address] [place] [address] Cesar Palma MD [address] [facility] [place], [place] [id number] 10/18/2024 12:30 PM EDT Imaging Radiology [address] [place] [address] Scheduled Procedures Name Priority Associated Diagnoses Date/Ti me COLONOSCOPY FLEXIBLE PROXIMAL DIAGNOSTIC Recall History of colon polyps Health Maintenance Due Date Last Done Comments DISCUSS TOBACCO CESSATION (REFER TO SMARTSET #7251) 1965 COVID-19 Vaccine (#1) 1970 Hepatitis B [...] this encounter Medical Devices Implanted Type Area Special Events Assistant Device Identifier Shelf Expiration Date Model / Serial / Lot Alfonzo Arthrodesis Nail, Left Implanted:Qty: 1 on 06/10/2012 at OR [facility] Tissue - Non Human Left: Leg Upper ALFONZO 04/01/2016 2789-0892 S / / [id number] Screw Locking 18965035s - [id number] Implanted:Qty: 1 on 06/10/2012 at OR [facility] Left: Leg Upper ALFONZO : TRAUMA 08/29/2013 3502-7146 S / / [id number] Screw Locking 1896-5030s - [id number] Implanted:Qty: 1 on 06/10/2012 at OR [facility] ALFONZO : TRAUMA 04/29/2013 7289-4135 S / / [id number] Screw Threaded Lckg 5x42.5mm - [id number] Implanted:05/31 (Quantity not on file) Left: Leg Upper ALFONZO : ORTHOPAEDICS 12/31/2015 7578-2614 S / / [id number] Screw Locking 1896-5040s - [id number] Implanted:Qty: 1 on 06/10/2012 at OR [facility] Left: Leg Upper ALFONZO : TRAUMA 07/30/2014 9595-5759 S / / [id number] Screw Compression 1825-0000s - [id number] Implanted:Qty: 1 on 06/10/2012 at OR [facility] Left: Leg Upper ALFONZO : TRAUMA 12/30/2012 8531-5650 S / / [id number] Screw Shaft 1891-5045s - [id number] Implanted:Qty: 1 on 06/10/2012 at OR [facility] Left: Leg Upper ALFONZO : ORTHOPAEDICS 12/31/2015 6318-7750 S / / [id number] Mesh Vicryl 12 X 12 Vkm-L - [id number] Implanted:Qty: 1 on 04/25/2020 by Dejuan Kaufman MD at OR [facility] N/A: Abdomen JNJ : [employer] 04/29/2024 VKM-L / / [id number] Mesh Soft [id number] - [id number] Implanted:Qty: 1 on 04/25/2020 by Dejuan Kaufman MD at OR [facility] N/A: Abdomen CR BARD : DAVOL [id number] 07/27/2024 [id number] / / [id number] documented as of this encounter Visit Diagnoses Diagnosis Nausea and vomiting, unspecified vomiting type Lumbar degenerative disc disease Degeneration of lumbar [...] Directives occurred with: Not Discussed Care Teams [employer] Relationship Specialty Start Date End Date Shazia Bee MD [address] [place] [address] [place] [address] PCP - General Family Medicine 10/30/23 documented as of this encounter
--- OUTSIDE RECORDS SUMMARY | 2024-04-01 20:48 | External Medical Summary | Summary of Care ---
Author Name Unknown Organization [facility] Address [address] [place] [address] Phone [phone] Care Team Providers Care Firer Boiler Name Role Phone Shazia Bee MD Primary Care Provide r Encounter Details Date Type Department Care Team (Late st Contact Info) Description 01/20/2024 Orders Only Radiology [address] [place] [address] Requisition, External Radiology [address] [place] [address] Non-toxic multinodular goiter* Allergies No known active allergiesdocumented as of [...] Oral Capsule Delayed Release Particles (Cymbalta) 12/26/19 Active documented as of this encounter (statuses [...] [facility]- Keri Zaman ([phone]) [facility]- Cate Trinidad ([phone]) [facility]- Julia Villafana ([phone]) Diagnosis changed due to Research Module. Go to Snapshot for study details. Anxiety 04/26/2015 11/20/2016 Recurrent major depressive disorder 04/14/2014 06/21/2019 Adrenal insufficiency 12/12/20132016 [employer]CE TJR RESEARCH OTHER*[id number] 11/02/2013 03/19/2016 Overview (03/19/2016): Patient has completed [...] Next Due Pneumococcal Conjugate Vacci ne, 20-valent ([id number]) 11/15/2021 Pneumococcal Polysaccharide PPV23 (Pneumovax) 06/26/2008 Seasonal [...] Description 01/22/2024 2:00 PM EST Imaging Radiology [address] [place] [address] 05/24/2024 9:00 AM EDT Office Visit Cardiology [address] [place] [address] Quinn Uriostegui PA-C [address] [place] [address] 06/20/2024 8:40 AM EDT Office Visit Neurology [facility] [address] [place] [address] Cesar Palma MD [address] [facility], [place] [address] 10/18/2024 12:30 PM EDT Imaging Radiology [address] [place] [address] 01/30/2025 1:20 PM EST Office Visit Rheumatology [facility] [address] [facility] [place] [address] Isidro Phillips MD [address] [place] [address] Scheduled Orders Name Type Priority Associated Diagnoses Orde r Schedule US HEAD AND NECK Medical Imaging Routine Non-toxic multinodular goiter Expected: 02/19/2024, Expires: 02/18/2025 Scheduled Procedures Name Priority Associated Diagnoses Date/Ti me COLONOSCOPY FLEXIBLE PROXIMAL DIAGNOSTIC Recall History of colon polyps Health Maintenance Due Date Last Done Comments DISCUSS TOBACCO CESSATION (REFER TO SMARTSET #4586) 1965 COVID-19 Vaccine (#1) 1970 Hepatitis B [...] this encounter Medical Devices Implanted Type Area Interpreter Deaf Device Identifier Shelf Expiration Date Model / Serial / Lot Alfonzo Arthrodesis Nail, Left Implanted:Qty: 1 on 06/10/2012 at OR [facility] Tissue - Non Human Left: Leg Upper ALFONZO 04/01/2016 8830-3263 S / / [id number] Screw Locking 1896-5035s - [id number] Implanted:Qty: 1 on 06/10/2012 at OR [facility] Left: Leg Upper ALFONZO : TRAUMA 08/29/2013 8163-8382 S / / [id number] Screw Locking 1896-5030s - [id number] Implanted:Qty: 1 on 06/10/2012 at OR [facility] ALFONZO : TRAUMA 04/29/2013 1191-4602 S / / [id number] Screw Threaded Lckg 5x42.5mm - [id number] Implanted:05/31 (Quantity not on file) Left: Leg Upper ALFONZO : ORTHOPAEDICS 12/31/2015 4041-3524 S / / [id number] Screw Locking 1896-5040s - [id number] Implanted:Qty: 1 on 06/10/2012 at OR [facility] Left: Leg Upper ALFONZO : TRAUMA 07/30/2014 9639-6520 S / / [id number] Screw Compression 1825-0000s - [id number] Implanted:Qty: 1 on 06/10/2012 at OR [facility] Left: Leg Upper ALFONZO : TRAUMA 12/30/2012 0161-9020 S / / [id number] Screw Shaft 1891-5045s - [id number] Implanted:Qty: 1 on 06/10/2012 at [facility] Left: Leg Upper ALFONZO : ORTHOPAEDICS 12/31/2015 1240-8946 S / / [id number] Mesh Vicryl 12 X 12 Vkm-L - [id number] Implanted:Qty: 1 on 04/25/2020 by Dejuan Kaufman MD at OR [facility] N/A: Abdomen JNJ : [employer] 04/29/2024 VKM-L / / [id number] Mesh Soft [id number] - [id number] Implanted:Qty: 1 on 04/25/2020 by Dejuan Kaufman MD at OR [facility] N/A: Abdomen CR BARD : DAVOL [id number] 07/27/2024 [id number] / / [id number] documented as of this encounter Visit Diagnoses Diagnosis Non-toxic multinodular goiter- Primary Nontoxic multinodular goiter documented in this encounter [...] Directives occurred with: Not Discussed Care Teams Firer Boiler Relationship Specialty Start Date End Date Shazia Bee MD [address] [place] [address] [place] [address] PCP - General Family Medicine 10/30/23 documented as of this encounter
--- OUTSIDE RECORDS SUMMARY | 2024-04-01 20:48 | External Medical Summary ---
Author Name Unknown Address Unknown Organization K01:[facility] [place] [address] [place] [address] Laboratory Report Ordering Provider Test Date Status ARIA SORENSEN 01/20/2024 13:50:52 Final Observation Date Value Abnormality Reference (Units ) Status BUN 01/20/2024 13:50:52 11 6-20 (mg/dL) Final Creatinine 01/20/2024 13:50:52 1.1 Above high normal 0.5-1.0 (mg/dL) Final Glomerular filtration rate/1.73 sq M.predicted [Volume Rate/Area] in Serum, Plasma or Blood by Creatinine-based formula (CKD-EPI) 01/20/2024 13:50:52 58 Below low normal >=60 (mL/min) Final eGFR is calculated based on the CKD-EPI 2020 equation. Sodium 01/20/2024 13:50:52 141 135-146 (m mol/L) Final Potassium 01/20/2024 13:50:52 4.6 3.5-5.1 (m mol/L) Final Cl 01/20/2024 13:50:52 102 98-107 (mm ol/L) Final CO2 01/20/2024 13:50:52 25 22-32 (mmo l/L) Final Anion gap 01/20/2024 13:50:52 14 7-15 (mmol /L) Final Glucose 01/20/2024 13:50:52 69 Below low normal 70- 120 (mg/dL) Final Albumin 01/20/2024 13:50:52 4.4 3.8-5.0 (g /dL) Final AST (Aspartate aminotransferase) 01/20/2024 13:50:52 26 10-35 (U/L) Fin al Alk Phos 01/20/2024 13:50:52 158 Above high normal 35 -130 (U/L) Final Bilirubin, Total 01/20/2024 13:50:52 0.3 <=1 .2 (mg/dL) Final Calcium 01/20/2024 13:50:52 10.0 8.4-10.2 ( mg/dL) Final Protein 01/20/2024 13:50:52 7.0 6.0-8.3 (g /dL) Final ALT (Alanine aminotransferase) 01/20/2024 13:50:52 24 10-35 (U/L) Gab jimenez Performing Location [facility] [place] [facility] [address] [facility] [address]
--- OUTSIDE RECORDS SUMMARY | 2024-04-01 20:48 | External Medical Summary | Summary of Care ---
Author Name Unknown Organization [facility] Address [address] [facility] [place] [address] Phone [phone] Care Team Providers Care Supervisor Food Checkers And Cashiers Name Role Phone Shazia Bee MD Primary Care Provide r Reason for Visit * Reason Comments Outpatient Testing Encounter Details Date Type Department Care Team (Late st Contact Info) Description 01/20/2024 1:50 PM EST Laboratory Laboratory [address] [place] [phone] [place] [address] Non-toxic multinodular goiter Allergies No known active [...] PI: Dr. Shima Burns CRC- Keri Zaman ([phone]) [facility] CRC- Cate Trinidad ([phone]) [facility] CRC- Julia Villafana ([phone]) Diagnosis changed due to Research Module. Go to Snapshot for study details. Anxiety 04/26/2015 11/20/2016 Recurrent major depressive disorder 04/14/2014 06/21/2019 Adrenal insufficiency 12/12/20132016 FORCE TJR RESEARCH OTHER*[id number] 11/02/2013 03/19/2016 Overview (03/19/2016): Patient has completed [...] Next Due Pneumococcal Conjugate Vacci ne, 20-valent ([id number]) 11/15/2021 Pneumococcal Polysaccharide PPV23 (Pneumovax) 06/26/2008 Seasonal [...] Description 01/22/2024 2:00 PM EST Imaging Radiology [address] [place] [address] 05/24/2024 9:00 AM EDT Office Visit Cardiology [address] [place] [address] Quinn Uriostegui, [place]-C [address] [place] [address] 06/20/2024 8:40 AM EDT Office Visit Neurology [facility] [address] [place] [address] Cesar Palma MD [address] [place] [facility] [place] [address] 10/18/2024 12:30 PM EDT Imaging Radiology [address] [place] [address] 01/30/2025 1:20 PM EST Office Visit Rheumatology [facility] [address] [place] [address] Isidro Phillips MD [address] [employer] [place] [address] Pending Results Name Type Priority Associated Diagnoses Date /Time TSH Lab Routine Non-toxic multinodular goiter 01/20/2024 1:56 PM EST Scheduled Procedures Name Priority Associated Diagnoses Date/Ti me COLONOSCOPY FLEXIBLE PROXIMAL DIAGNOSTIC Recall History of colon polyps Health Maintenance Due Date Last Done Comments DISCUSS TOBACCO CESSATION (REFER TO SMARTSET #4323) 1965 COVID-19 Vaccine (#1) 1970 Hepatitis B [...] this encounter Medical Devices Implanted Type Area Cold Rolling Machine Setter Device Identifier Shelf Expiration Date Model / Serial / Lot Conway Arthrodesis Nail, Left Implanted:Qty: 1 on 06/10/2012 at OR [facility] Tissue - Non Human Left: Leg Upper ALFONZO 04/01/2016 [id number] S / / [id number] Screw Locking 1896-5035s - [id number] Implanted:Qty: 1 on 06/10/2012 at OR [facility] Left: Leg Upper ALFONZO : TRAUMA 08/29/2013 5778-8565 S / / [id number] Screw Locking 1896-5030s - [id number] Implanted:Qty: 1 on 06/10/2012 at OR [facility] ALFONZO : TRAUMA 04/29/2013 9473-7830 S / / [id number] Screw Threaded Lckg 5x42.5mm - [id number] Implanted:05/31 (Quantity not on file) Left: Leg Upper ALFONZO : ORTHOPAEDICS 12/31/2015 8545-7255 S / / [id number] Screw Locking 1896-5040s - [id number] Implanted:Qty: 1 on 06/10/2012 at OR [facility] Left: Leg Upper ALFONZO : TRAUMA 07/30/2014 1249-1373 S / / [id number] Screw Compression 1825-0000s - [id number] Implanted:Qty: 1 on 06/10/2012 at OR [facility] Left: Leg Upper ALFONZO : TRAUMA 12/30/2012 2248-1196 S / / [id number] Screw Shaft 1891-5045s - [id number] Implanted:Qty: 1 on 06/10/2012 at OR [facility] Left: Leg Upper ALFONZO : ORTHOPAEDICS 12/31/2015 5033-3861 S / / [id number] Mesh Vicryl 12 X 12 Vkm-L - [id number] Implanted:Qty: 1 on 04/25/2020 by Dejuan Kaufman MD at OR [facility] N/A: Abdomen JNJ : [employer] 04/29/2024 VKM-L / / [id number] Mesh Soft [id number] - [id number] Implanted:Qty: 1 on 04/25/2020 by Dejuan Kaufman MD at OR [facility] N/A: Abdomen CR BARD : DAVOL [id number] 07/27/2024 [id number] / / [id number] documented as of this encounter Visit Diagnoses [...] occurred with: Not Discussed Care Teams Supervisor Food Checkers And Cashiers Relationship Specialty Start Date End Date Shazia Bee MD [address] [place] [address] [place] [address] PCP - General Family Medicine 10/30/23 documented as of this encounter
--- OUTSIDE RECORDS SUMMARY | 2024-04-01 20:48 | External Medical Summary | Summary of Care ---
Author Name Unknown Organization [facility] Address [address] [facility] [address] Phone [phone] Care Team Providers Care Tailing Machine Operator Name Role Phone Shazia Bee MD Primary Care Provide r Reason for Visit * Reason Comments Return Neuro Restless Leg Syndrome Encounter Details Date Type Department Care Team (Late st Contact Info) Description 12/14/2023 8:40 AM EDT Office Visit [facility] [address] [facility] [place] [address] Bridget Argueta PA-C [address] [facility] [place] [address] RLS (restless legs syndrome)*; Chronic pain syndrome Allergies No known active allergiesdocumented as of this encounter (statuses as of 12/14/2023) Medications Medication Sig Dispensed Refills Start Date End Date Status BLOOD PRESSURE CUFF MISCIndications:Fall for home BP monitoring 1 Kit 1 03/16/2013 Active FOLIC ACID 800 MCG PO TABS Take 1 Tablet by mouth in the morning. 11/07/2013 Active CYANOCOBALAMIN (VITAMIN B-12) 100 MCG Tablet Take 1 Tablet by mouth in the morning. Active calcium-vit D 500mg-200 units per tab 500-200 MG-UNIT per tablet Take 2 Tablets by mouth every morning. 10/20/2019 Active Iron 325 (65 Fe) MG Oral Tablet Take 1 Tablet by mouth at bedtime. Active Magnesium 500 MG Oral Tablet Take 1 Tablet by mouth in the morning. Active valACYclovir HCl 1 GM Oral Tablet (Valtrex) as needed. 07/27/2021 Active Pramoxine HCl 1 % External LotionIndications:Cu taneous lupus erythematosus Apply to back twice daily as needed (please provide lotion gato, pt lives alone) 222 mL 2 12/12/2021 Active Aspirin EC 81 MG Oral Tablet Delayed Release Take 1 Tablet by mouth in the morning. Active hydrOXYzine HCl 25 MG Oral Tablet TAKE ONE TABLET BY MOUTH IN THE MORNING, at noon, in the evening, and before bedtime if needed for itching or anxiety 40 Tablet 02/25/2022 Active busPIRone HCl 10 MG Oral Tablet (Buspar) TAKE ONE TABLET BY MOUTH IN THE MORNING, at noon, and before bedtime for anxiety 270 Tablet 1 03/11/2022 Active Additional Information Patient taking differently: BID (.AM/PM), Reported on 12/14/2023 traZODone HCl 100 MG Oral Tablet (Desyrel)Indications :Other insomnia Take 2 tablets for the first week and then reduce to just 1 tablet at bedtime. 30 Tablet 5 03/18/2022 Active Additional Information Patient taking differently: 200 mg Oral HS, Take 2 tablets for the first week and then reduce to just 1 tablet at bedtime., Reported on 10/29/2022 Mirtazapine 7.5 MG Oral Tablet (Remeron) Take 1 Tablet by mouth at bedtime. 04/14/2022 Active Ondansetron 4 MG Oral Tablet Disintegrating Place 1 Tablet on tongue every 8 hours as needed for Nausea or Vomiting. dissolve on tongue. 30 Tablet 5 05/06/2022 Active Hydrocortisone 5 MG Oral Tablet (Cortef)Indications: History of adrenal insufficiency 2 tab in the morning, and 1 tab around 2 pm, triple dose during illness, MDD 9 tabs 270 Tablet 3 05/15/2023 Active Midodrine HCl 10 MG Oral Tablet (Proamatine)Indicati ons:Orthostatic hypotension,Hypotens ion, unspecified hypotension type Take one tablet shortly before or upon rising in the morning, midday, and late afternoon (not later than 6 PM) 270 Tablet 3 05/19/2023 Active Potassium Chloride ER 10 MEQ Oral Capsule Extended ReleaseIndications:H ypokalemia Take 1 Capsule by mouth in the morning and 1 Capsule before bedtime. 180 Capsule 1 06/18/2023 Active Hydroxychloroquine Sulfate 200 MG Oral Tablet (Plaquenil)Indicatio ns:Cutaneous lupus erythematosus 2 tablets each evening 180 Tablet 1 08/19/2023 Active Gabapentin 600 MG Oral Tablet (Neurontin)Indicatio ns:Spinal stenosis of lumbar region with neurogenic claudication take 1 tablet in the morning, 1 tablet at noon and 1 tablet before bedtime 270 Tablet 1 09/14/2023 Active Furosemide 40 MG Oral Tablet (Lasix)Indications:B ilateral lower extremity edema TAKE ONE TABLET BY MOUTH DAILY NEEDED for swelling 90 Tablet 10/07/2023 Active Atorvastatin Calcium 40 MG Oral Tablet (Lipitor) TAKE ONE TABLET BY MOUTH IN THE MORNING 90 Tablet 10/07/2023 Active Meloxicam 15 MG Oral Tablet (Mobic)Indications:L umbar degenerative disc disease,DDD (degenerative disc disease), cervical Take 1 Tablet by mouth in the morning. for pain.. 90 Tablet 1 10/30/2023 Active rOPINIRole HCl 2 MG Oral Tablet (Requip)Indications: RLS (restless legs syndrome) TAKE ONE TABLET BY MOUTH ONCE DAILY IN THE EVENING 90 Tablet 11/10/2023 Active Pantoprazole Sodium 40 MG Oral Tablet Delayed Release (Protonix)Indication s:Nausea and vomiting, unspecified vomiting type Take 1 Tablet by mouth in the morning and 1 Tablet before bedtime. Do not crush, split or chew the tablet. 60 Tablet 1 11/06/2023 Active Wegovy 0.25 MG/0.5ML Subcutaneous Solution Auto-injector (Semaglutide-Weight Management) Inject 0.25 mg (1 pen) under the skin once a week. 2 mL 5 11/20/2023 Active Sucralfate 1 GM Oral Tablet (Carafate) TAKE ONE TABLET BY MOUTH AT BEDTIME. may also take additionally up to 4 times daily if needed for nausea, epigastric pain 360 Tablet 11/22/2023 Active Trulance 3 MG Oral Tablet (Plecanatide) Take 3 mg by mouth daily. 30 Tablet 3 11/23/2023 Active Baclofen 20 MG Oral TabletIndications:Ally mbar degenerative disc disease TAKE ONE TABLET BY MOUTH THREE TIMES DAILY in the morning, at noon, and before bedtime if needed for muscle spasms 90 Tablet 12/07/2023 Active documented as of this encounter (statuses as of 12/14/2023) Active Problems Problem Noted Date Diagnosed Date [...] as of this encounter (statuses as of 12/14/2023) Resolved Problems Problem Noted Date Diagnosed Date [...] [facility] CRC- Keri Zaman ([phone]) [facility] CRC- Cate Trinidad ([phone]) [facility] CRC- Julia Villafana ([phone]) Diagnosis changed due to Research Module. Go to Snapshot for study details. Anxiety 04/26/2015 11/20/2016 Recurrent major depressive disorder 04/14/2014 06/21/2019 Adrenal insufficiency 12/12/20132016 FORCE TJR RESEARCH OTHER*[id number] 11/02/2013 03/19/2016 Overview: Patient has completed participation [...] as of this encounter (statuses as of 12/14/2023) Immunizations Name Administration Dates Next Due Pneumococcal Conjugate Vacci ne, 20-valent ([id number]) 11/15/2021 Pneumococcal Polysaccharide PPV23 (Pneumovax) 06/26/2008 Seasonal [...] 10/23/2023 Does the household have a re lar source of income? (Household - for ages [...] Sign Reading Time Taken Comments Blood Pressure 128/78 12/14/2023 8:24 AM EDT Pulse 76 12/14/2023 8:24 AM EDT Temperature 36.4 C (97.6 F) 12/14/2023 8:24 AM ED T Respiratory Rate 16 12/14/2023 8:24 AM EDT Oxygen Saturation 98% 12/14/2023 8:24 AM EDT Inhaled Oxygen Concentration - - Weight 100.6 kg (221 lb 12.8 oz) 12/14/2023 8:24 AM EDT Height - - Body Mass Index 36.91 11/05/2023 11:36 AM EDT documented in this encounter Functional Status Functional Status Response [...] (15 years old or older) No 04/24/19 21 Cognitive Status Response Date of Assessm ent Because of a physical, menta l, or emotional condition, do you have serious difficulty concentrating, remembering, or making decisions? (5 years old or older) No 04/24/2020 documented as of this encounter Progress Notes * Bridget Argueta PA-C - 12/14/2023 8:20 AM EDT HISTORY & PHYSICAL EXAMINATION - NEUROLOGY Name: Tracy Chen Date: 12/14/2023 Time: 8:21 AM Referring Provider: Self Chief Complaint: Chief Complaint Patient presents with Return Neuro Restless Leg Syndrome This is a 58 year old right handed woman returns today for follow up for RLS and increase pain in her back and right knee. HPI & Source of HPI The patient was the historian, and she is reliable. She was last seen in our office 03/18/[address] Palma. She has a history of muscle spasms which started about 3 years ago after she had lumbar surgery (lumbar fusion by Dr. Tena in November 2020) the spasms had gotten progressively worse and also has chronic back pain. She also has history of tingling sensation in both hands and feet. EMG study in October of 2021 did not reveal any clear peripheral neuropathy, myopathy, radiculopathy or other focal nerve entrapment. She has seen by Hematology for history of hypogammaglobulinemia and free kappa light chain elevation (surveillance for MGUS, bone marrow biopsy was normal), reactive polycythemia and thrombocytosis. She is a heavy smoker, started smoking since she was 14 years old and smoked up to 3 packs a day, has been down to 1 ppd for the past 25 years. 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 Insomnia (difficulty falling and staying asleep). She gets pain injections by pain clinics into lower spine (L4,L5, S1). She is here today for a return visit since she has not been in the office since 2022. She wants to go to pain mgt which has been ordered by her PCP for injections. She says she gets a lot of numbnessin her left arm and leg and if she does not use them they get numb and cold. Denies CP, SOB, abdominal pain. She wants to schedule surgery for neck and right knee. Has been having falls because she does not want to use a cane or walker. I have reviewed the patient's medications and allergies, past medical, surgical, social and family history, updating these as appropriate. See Histories section of the electronic medical record for adisplay of this information. Patient Active Problem List Diagnosis Reflex sympathetic [...] neurogenic claudication Lupus erythematosus tumidus Thyroid nodule Mild carotid artery disease (HCC) Hx of atypical nevus Encounter for long-term (current) use of medications Food insecurity GERD (gastroesophageal reflux disease) Family History Problem Relation Name Age of Onset Alcohol and Other Disorders Associated Mother paresh garza Thyroid Disorder Mother paresh garza Arthritis Father petey garza Heart Disorder Father petey garza Hypertension Father petey garza Thyroid Disorder Father petey garza Cancer Sister remission Mental Disorder Daughter Mental Disorder Daughter berhane chen Breast Cancer Aunt (Unspecified) Diabetes Uncle (Unspecified) Heart Disorder Uncle (Unspecified) Hypertension Uncle (Unspecified) Breast Cancer Aunt (Maternal) Medications: Are you taking your medications? yes Current Outpatient Medications Medication Sig Dispense Refill FOLIC ACID 800 MCG PO TABS Take [...] for itching or anxiety 40 Tablet 0 busPIRone HCl 10 MG Oral Tablet (Buspar) TAKE ONE TABLET BY MOUTH IN THE MORNING, at noon, and before bedtime for anxiety (Patient taking differently: 2 times a day.) 270 Tablet 1 traZODone HCl 100 MG Oral Tablet (Desyrel) [...] 1 tablet before bedtime 270 Tablet 1 Furosemide 40 MG Oral Tablet (Lasix) TAKE ONE TABLET BY MOUTH DAILY NEEDED for swelling 90 Tablet 0 Atorvastatin Calcium 40 MG Oral Tablet (Lipitor) TAKE ONE TABLET BY MOUTH IN THE MORNING 90 Tablet 0 Meloxicam 15 MG Oral Tablet (Mobic) Take [...] or chew the tablet. 60 Tablet 1 Wegovy 0.25 MG/0.5ML Subcutaneous Solution Auto-injector (Semaglutide-Weight Management) Inject 0.25 mg (1 pen) under the skin once a week. 2 mL 5 Sucralfate 1 GM Oral Tablet (Carafate) TAKE ONE TABLET BY MOUTH AT BEDTIME. may also take additionally up to 4 times daily if needed for nausea, epigastric pain 360 Tablet 0 Trulance 3 MG Oral Tablet (Plecanatide) Take 3 mg by mouth daily. 30 Tablet 3 Baclofen 20 MG Oral Tablet TAKE ONE TABLET BY MOUTH THREE TIMES DAILY in the morning, at noon, and before bedtime if needed for muscle spasms 90 Tablet 0 BLOOD PRESSURE [facility] for home BP monitoring 1 Kit 1 No current facility-administered medications for this visit. Review of patient's allergies indicates: No Known Allergies Review of Systems: A total number of 10 systems were reviewed pertinent negative and positives not addressed in HPI are listed in the following review. Physical Exam: Constitutional: BP 128/78 | Pulse 76 | Temp 36.4 C (97.6 F) (Tympanic) | Resp 16 | Wt 100.6 kg (221 lb 12.8 oz) | SpO2 98% | BMI 36.91 kg/m | BSA 2.15 m , appearance over nourished and healthy Ears, Nose, Mouth and Throat: mucous membranes moist, no injection and skin normal, eyes normal Cardiovascular: normal S-1 and S-2 and regular rate and rhythm Respiratory: course distant breath sounds Musculoskeletal: no peripheral edema, left leg extended with sitting no flex at knee Skin: hypopigmentation of arms spotty Eyes: no discoloration of the irises was noted, eyes normal and sclera clear, and extraocular muscles intact (EOMI) NEUROLOGIC EXAMINATION: Mental status: Alert and interactive Oriented to person Speech fluent with no evidence of aphasia Cranial Nerves Normal findings for Cranial Nerves II - XII Coordination: on [id number] and no abnormal or extraneous movements Gait/Stance: Posture abnormal: forward head and unable to bend left leg. Gait orthopedic limping gait. . Motor: Negative for pronator drift of out stretched arms with eyes closed. Strength: generalized weakness, deconditioned, and uses arms of chair to stand up LABORATORY: Recent labs reviewed Review of prior Studies: No recent imaging available. Impression: Tracy Chen is a 58 year old woman with a history of RLS and chronic pain. Her neurologic examination today reveals no new focal deficit. The history and examination are suggestive of diagnosis/problem list. Testing and Referrals ordered: none ICD-10-CM 1. RLS (restless legs syndrome) G25.81 2. Chronic pain syndrome G89.4 Return in 6 months or sooner if needed Continue current dosing of medications Pain mgt which is already ordered needs to be scheduled Smoking cessations strongly urged PCP for medical management Call with questions concerns Medical Decision Making (determined by lowest of 2 of 3 elements): The medical decision making element of the number and complexity of problems addressed included at least 1 or more chronic illnesses with exacerbation, progression, or side effects of treatment (level 4). The medical decision making element of risk of complications, morbidity, and mortality of patient management is moderate (level 4) due to prescription drug management (moderate risk). The medical decision making element of the amount and complexity of data reviewed and analyzed included an independent interpretation of a test (level 4 at least). When 2 of 3 reach level 4, then this element is considered extensive (level 5). I personally spent a total of 30 minutes. This time was for a new office or established visit and was on the same calendar day. and This time was the total spent on the evaluation, interpretation, and documentation. Education / Consultation - Topics covered as I spent 20 minutes, which is greater than 50% of this visit, counseling the patient on: Diagnostic Results Prognosis Importance of compliance with chosen treatment options Risk factor reductions Patient and family education Consulted with physician: Huey Carlos MD was available for direct supervision. Copy of note sent toPCP and Referring Provider. Total time of visit: 30 minutes. Bridget Argueta PA-C Neurology [facility] [address] [facility] [place] [address] 12/14/2023 8:21 AM documented in this encounter Nursing Notes * Mirela Stone MED ASSIST - 12/14/2023 8:21 AM EDT Chief Complaint Patient presents with Return Neuro Restless Leg Syndrome documented in this encounter Plan of Treatment Upcoming Encounters Date Type Department Care Team (Late st Contact Info) Description 12/31/2023 8:40 AM EDT Office Visit Rheumatology [address] [place] [address] Isidro Phillips MD [address] [place] [address] [place] [address] 01/08/2024 12:20 PM EST Office Visit [facility] [address] [place] [phone] Anni Gomez MD [address] [facility] [place] [address] 05/24/2024 9:00 AM EDT Office Visit Cardiology [address] [place] [address] Quinn Uriostegui PA-C [address] [place] [address] 06/20/2024 8:40 AM EDT Office Visit Neurology [facility] [address] [facility] [place] [address] Cesar Palma MD [address] [place] [address] 10/18/2024 12:30 PM EDT Imaging Radiology [address] [place] [address] Scheduled Procedures Name Priority Associated Diagnoses Date/Ti me COLONOSCOPY FLEXIBLE PROXIMAL DIAGNOSTIC Recall History of colon polyps Health Maintenance Due Date Last Done Comments DISCUSS TOBACCO CESSATION (REFER TO SMARTSET #5940) 1965 COVID-19 Vaccine (#1) 1970 Hepatitis B [...] this encounter Medical Devices Implanted Type Area Steel Layout Worker Device Identifier Shelf Expiration Date Model / Serial / Lot Reserve Arthrodesis Nail, Left Implanted:Qty: 1 on 06/10/2012 at [place] [facility] Tissue - Non Human Left: Leg Upper ALFONZO 04/01/2016 [id number] S / / [id number] Screw Locking 1896-5035s - [id number] Implanted:Qty: 1 on 06/10/2012 at OR [facility] Left: Leg Upper ALFONZO : TRAUMA 08/29/2013 [id number] S / / [id number] Screw Locking 1896-5030s - [id number] Implanted:Qty: 1 on 06/10/2012 at OR [facility] ALFONZO : TRAUMA 04/29/2013 0344-3514 S / / [id number] Screw Threaded Lckg 5x42.5mm - [id number] Implanted:05/31 (Quantity not on file) Left: Leg Upper ALFONZO : ORTHOPAEDICS 12/31/2015 0012-8450 S / / [id number] Screw Locking 1896-5040s - [id number] Implanted:Qty: 1 on 06/10/2012 at [place] [facility] Left: Leg Upper ALFONZO : TRAUMA 07/30/2014 5424-2115 S / / [id number] Screw Compression 1825-0000s - [id number] Implanted:Qty: 1 on 06/10/2012 at [place] [facility] Left: Leg Upper ALFONZO : TRAUMA 12/30/2012 6614-2983 S / / [id number] Screw Shaft 1891-5045s - [id number] Implanted:Qty: 1 on 06/10/2012 at [place] [facility] Left: Leg Upper ALFONZO : ORTHOPAEDICS 12/31/2015 1010-5901 S / / [id number] Mesh Vicryl 12 X 12 Vkm-L - [id number] Implanted:Qty: 1 on 04/25/2020 by Dejuan Kaufman MD at OR [facility] N/A: Abdomen JNJ : [employer] 04/29/2024 VKM-L / / [id number] Mesh Soft [id number] - [id number] Implanted:Qty: 1 on 04/25/2020 by Dejuan Kaufman MD at OR [facility] N/A: Abdomen CR BARD : DAVOL [id number] 07/27/2024 [id number] / / [id number] documented as of this encounter Visit Diagnoses Diagnosis RLS (restless legs syndrome)- Primary Restless legs syndrome (RLS) Chronic pain syndrome documented in this encounter Advance Directives [...] Directives occurred with: Not Discussed Care Teams Tailing Machine Operator Relationship Specialty Start Date End Date Shazia Bee MD [address] [place] [address] [place] [address] PCP - General Family Medicine 10/30/23 documented as of this encounter"
--- OUTSIDE RECORDS SUMMARY | 2024-04-01 20:48 | External Medical Summary | Summary of Care ---
Author Name Unknown Organization [facility] Address [address] [place] [address] Phone [phone] Care Team Providers Care Artist Blacksmith Name Role Phone Shazia Bee MD Primary Care Provide r Reason for Visit * Reason Comments eRx-Medication Refill Encounter Details Date Type Department Care Team (Late st Contact Info) Description 01/02/2024 Refill Family Medicine [address] [phone] Shazia Bee MD [address] [place], [place] [address] [address] Bilateral lower extremity edema Allergies No known active allergiesdocumented as of [...] wand, pt lives alone) 222 mL 2 2 [...] 2 tablets each evening 180 Tablet 1 06/19/202 4 Active Gabapentin 600 MG Oral Tablet [...] Active Wegovy 0.25 MG/0.5ML Subcutaneous Solution Auto-injector (SemaglutideBeam Networks t Management) Inject 0.25 mg (1 pen) [...] for muscle spasms 90 Tablet 4 Active Atorvastatin Calcium 40 MG Oral Tablet (Lipitor) TAKE ONE TABLET BY MOUTH IN THE MORNING 90 Tablet 2 4 Active Furosemide 40 MG Oral Tablet (Lasix)Indications :Bilateral lower extremity edema TAKE ONE TABLET BY MOUTH DAILY NEEDED for swelling 90 Tablet 2 4 Active Furosemide 40 MG Oral Tablet (Lasix)Indications :Bilateral lower extremity edema TAKE ONE TABLET BY MOUTH DAILY NEEDED for swelling 90 Tablet 4 01/04/20 24 Discontinued Atorvastatin Calcium 40 MG Oral Tablet (Lipitor) TAKE ONE TABLET BY MOUTH IN THE MORNING 90 Tablet 4 01/04/20 24 Discontinued documented [...] [facility]- Keri Zaman ([phone]) [facility]- Cate Trinidad ([phone]) [facility]- Julia Villafana ([phone]) Diagnosis changed due to Research Module. Go to Snapshot for study details. Anxiety 04/26/2015 11/20/2016 Recurrent major depressive disorder 04/14/2014 06/21/2019 Adrenal insufficiency 12/12/20132016 FORCE TJR RESEARCH OTHER*[id number] 11/02/2013 03/19/2016 Overview: Patient has completed participation [...] Next Due Pneumococcal Conjugate Vacci ne, 20-valent (Klseshq86) 11/15/2021 Pneumococcal Polysaccharide PPV23 (Pneumovax) 06/26/2008 Seasonal [...] encounter Miscellaneous Notes * Telephone Encounter - Leonard Velasco RP - 01/04/2024 8:37 AM ESTSigned Prescriptions: Disp Refills Atorvastatin Calcium 40 MG Oral Tablet (Li*90 Tab*2 Sig: TAKE ONE TABLET BY MOUTH IN THE MORNINGAuthorizing Provider: SHAZIA BEE User: LEONARD VELASCO Furosemide 40 MG Oral Tablet (Lasix) 90 Tab*2 Sig: TAKE ONE TABLET BY MOUTH DAILY NEEDED for swellingAuthorizing Provider: SHAZIA BEE User: LEONARD VELASCO * Telephone Encounter - Interface, E-Rx Ss Inbound - 01/04/2024 5:05 AM EST Pending Prescriptions: Disp Refills Atorvastatin Calcium 40 MG Oral Tablet [Ph*90 Tab*0 Sig: TAKE ONE TABLET BY MOUTH IN THE MORNING Furosemide 40 MG Oral Tablet [Pharmacy Med*90 Tab*0 Sig: TAKE ONE TABLET BY MOUTH DAILY NEEDED for swelling documented in this encounter Plan of Treatment Upcoming Encounters Date Type Department Care Team (Late st Contact Info) Description 01/08/2024 12:20 PM EST Office Visit Interventional Pain Center, [facility] 132 [facility] [place] [address] Anni Gomez MD [address] [place] [address] 01/20/2024 1:20 PM EST Office Visit Rheumatology [address] [place] [address] Isidro Phillips MD [facility] [place] [address] 05/24/2024 9:00 AM EDT Office Visit Cardiology [address] [place] [address] Quinn Uriostegui PA-C [address] [place] [address] 06/20/2024 8:40 AM EDT Office Visit Neurology [facility] 200 [facility] [place] [address] Cesar Palma MD [address] [place] [address] 10/18/2024 12:30 PM EDT Imaging Radiology [address] [place] [address] Scheduled Procedures Name Priority Associated Diagnoses Date/Ti me COLONOSCOPY FLEXIBLE PROXIMAL DIAGNOSTIC Recall History of colon polyps Health Maintenance Due Date Last Done Comments DISCUSS TOBACCO CESSATION (REFER TO SMARTSET #3503) 1965 COVID-19 Vaccine (#1) 1970 Hepatitis B [...] this encounter Medical Devices Implanted Type Area Pharmacy Billing Adjudicator Device Identifier Shelf Expiration Date Model / Serial / Lot Alfonzo Arthrodesis Nail, Left [place]ed:[place] [facility] [place] Left: Leg Upper ALFONZO 04/01/2016 0527-4310 S / / [id number] Screw Locking 1896-1731s - [id number] Implanted:Qty: 1 [place]10[place]2012 [place] [facility] [place]: Leg Upper ALFONZO : TRAUMA 08/29/2013 0478-1554 S / / [id number] Screw Locking 1896-5030s - [id number] Implanted:Qty: 1 on 06/10/2012 at [facility] ALFONZO : TRAUMA 04/29/2013 9239-9788 S / / [id number] Screw Threaded Lckg 5x42.5mm - [id number] Implanted:05/31 (Quantity not on file) Left: Leg Upper ALFONZO : ORTHOPAEDICS 12/31/2015 1348-7074 S / / [id number] Screw Locking 1896-5040s - [id number] Implanted:Qty: 1 [place]10/2012 [place] [facility] [place]: Leg Upper ALFONZO : TRAUMA 07/30/2014 4878-8183 S / / [id number] Screw Compression 1825-0000s - [id number] Implanted:Qty: 1 on [place]10/2012 [place] [facility] [place]: Leg Upper ALFONZO : TRAUMA 12/30/2012 8762-7633 S / / [id number] Screw Shaft 1891-5045s - [id number] Implanted:Qty: 1 [place]10/2012 [place] [facility] [place]: Leg Upper ALFONZO : ORTHOPAEDICS 12/31/2015 0242-9315 S / / [id number] Mesh Vicryl 12 X 12 Vkm-L - [id number] Implanted:Qty: 1 on 04/25/2020 by Dejuan Kaufman [place] [facility] [place]/A: Abdomen JNJ : [employer] 04/29/2024 VKM-L / / [id number] Mesh Soft 93q03xg - [id number] Implanted:Qty: 1 on 04/25/2020 by Dejuan Kauf[place] [facility] [place]/A: Abdomen CR BARD : DAVOL [id number] 07/27/2024 [id number] / / [id number] documented as of this encounter Visit Diagnoses Diagnosis Bilateral lower extremity edema Edema documented in this encounter Advance Directives * [...] Directives occurred with: Not Discussed Care Teams Artist Blacksmith Relationship Specialty Start Date End Date Shazia Bee MD [address] [place] [address] [place] [address] PCP - General Family Medicine 10/30/23 documented as of this encounter
--- OUTSIDE RECORDS SUMMARY | 2024-04-01 20:49 | External Medical Summary | Summary of Care ---
Author Name Unknown Organization [facility] Address [address] [facility] [place] [address] Phone [phone] Care Team Providers Care Multiple Wire Sawyer Name Role Phone Shazia Bee MD Primary Care Provide r Reason for Visit * Reason Onset Date Comments Precert Denied 11/19/2023 Lubiprostone Encounter Details Date Type Department Care Team (Late st Contact Info) Description 11/19/2023 Telephone Gastroenterology, [facility] [address] [place] [address] Sheryl Orellana CRNP [address] [place] [address] Precert Denied (Lubiprostone) Allergies No known active allergiesdocumented as of this encounter (statuses as of 11/23/2023) Medications Medication Sig Dispensed Refills Start Date [...] anxiety 270 Tablet 1 03/11/19 23 Active traZODone HCl 100 MG Oral Tablet [...] evening 180 Tablet 1 08/19/19 24 Active Baclofen 20 MG Oral TabletIndications: Lumbar degenerative disc disease TAKE ONE TABLET BY MOUTH THREE TIMES DAILY in the morning, at noon, and before bedtime if needed for muscle spasms 90 Tablet 2 09/04/19 24 Active Gabapentin 600 MG Oral Tablet (Neurontin)Indicat ions:Spinal stenosis of lumbar region with neurogenic claudication take 1 tablet in the morning, 1 tablet at noon and 1 tablet before bedtime 270 Tablet 1 09/14/19 24 Active Furosemide 40 MG Oral Tablet (Lasix)Indications :Bilateral lower extremity edema TAKE ONE TABLET BY MOUTH DAILY NEEDED for swelling 90 Tablet 10/07/19 24 Active Atorvastatin Calcium 40 MG Oral Tablet (Lipitor) TAKE ONE TABLET BY MOUTH IN THE MORNING 90 Tablet 10/07/19 24 Active Meloxicam 15 MG Oral Tablet [...] tablet. 60 Tablet 1 11/06/19 24 Active Trulance 3 MG Oral Tablet (Plecanatide) Take 3 mg by mouth daily. 30 Tablet 3 11/23/19 24 Active Sucralfate 1 GM Oral Tablet (Carafate) TAKE ONE TABLET BY MOUTH AT BEDTIME. may also take additionally up to 4 times daily if needed for nausea, epigastric pain 360 Tablet 08/28/19 24 024 Discontinued Lubiprostone 24 MCG Oral Capsule (Amitiza) Take 1 Capsule by mouth 2 times a day with morning and evening meals. 60 Capsule 3 11/06/19 24 024 Discontinued Wegovy 0.25 MG/0.5ML Subcutaneous Solution Auto-injector (SemaglutideParrut Management) Inject 0.25 mg under the skin once a week. 2 mL 5 09/ 024 Discontinued(Re fill) documented as of this encounter (statuses as of 11/23/2023) Active Problems Problem Noted Date Diagnosed Date [...] as of this encounter (statuses as of 11/23/2023) Resolved Problems Problem Noted Date Diagnosed Date [...] Shima [facility]- Keri Zaman ([phone]) [facility]- Cate Triindad ([phone]) [facility]- Julia Villafana ([phone]) Diagnosis changed due to Research Module. Go to Snapshot for study details. Anxiety 04/26/2015 11/20/2016 Recurrent major depressive disorder 04/14/2014 06/21/2019 Adrenal insufficiency 12/12/20132016 FORCE TJR RESEARCH OTHER*[id number] 11/02/2013 03/19/2016 Overview: Patient has completed participation [...] as of this encounter (statuses as of 11/23/2023) Immunizations Name Administration Dates Next Due Pneumococcal Conjugate Vacci ne, 20-valent (Bboaiuy22) 11/15/2021 Pneumococcal Polysaccharide PPV23 (Pneumovax) 06/26/2008 Seasonal Influenza, PF, 6 M & above, IM , (FluLaval or Fluzone) 01/20/2023,11/15/2021,12/04/2020,11/21,12/17/2018,11/19/2017,11/20/2016 Seasonal Influenza, Quadriva lent, No Preserve, IM 12/17/2015,12/27/2014 Seasonal Influenza, Trivalen t, (IIV3), PF, (Fluzone) 11/06/2023 Seasonal Influenza, Trivalen t, (IIV3), with Preserv, (Fluzone) 12/01/2013,12/06/2012,11/18/2011,12/06,12/03/2009,12/26/2008,12/27/2007 ,01/08/2007,12/09/2005,01/02/2005,12/31 TDAP (age 10 and older)(Boostrix) 06/08/2018 TDAP, [...] as of this encounter Miscellaneous Notes * Addendum Note - Sheryl Orellana CRNP - 11/23/2023 11:15 AM EDTAddended by: SHERYL ORELLAAN on: 11/23/2023 11:15 AM Modules accepted: Orders * Telephone Encounter - Sheryl Orellana CRNP - 11/23/2023 11:15 AM EDT Pls inform pt of Amitiza denial. I changed Rx to Trulance 3mg daily RAJWINDER Beal * Telephone Encounter - Lashawn Armstrong LPN - 11/20/2023 3:50 PM EDT Images from the original note were not included. Type Date User Summary Attachment Precert 11/20/2023 11:22 AM Mey Perez, MORENO Please see scanned fax from insurance under the Media Tab. - Note: Please see scanned fax from insurance under the Media Tab. Approved/Denied: denied Formulary alternatives not tried/failed Drug Name and Formulation: Lubiprostone 24 MCG Oral Capsule (Amitiza) How Prescribed(directions/sig): bid Qty and Day Supply: 60/30 Did you receive insurance information from outside the chart? No, received insurance information within the chart Valid auth start date: N/A Valid auth end date: N/A Rx Insurance Info: [employer] Reference #: [id number] * Telephone Encounter - Lashawn Armstrong LPN - 11/19/2023 4:15 PM EDT Gastro Pre-Cert Request Specialty Medication: No. Medication/Disease State Information: Medication: Lubiprostone 24 MCG Oral Capsule (Amitiza) Diagnosis (including ICD-10): GERD, K21.9 Site of care: Self-administered - route pre-cert request to [facility] Office Information: Prescriber: RAJWINDER Celeste documented in this encounter Plan of Treatment Upcoming Encounters Date Type Department Care Team (Late st Contact Info) Description 12/07/2023 10:00 AM EDT Office Visit Neurology [facility] 200 [facility] [place] [address] Bridget Argueta PA-C 200 [facility] [place] [address] 12/31/2023 8:40 AM EDT Office Visit Rheumatology [place] [address] [facility] [place] [address] Isidro Phillips MD [address] [place] [address] 01/08/2024 12:20 PM EST Office Visit Interventional Pain Center, [facility] 132 [facility] [place] [address] Anni Gomez MD [address] [place] [address] [place] [address] 05/24/2024 9:00 AM EDT Office Visit Cardiology [address] [place] [address] Quinn Uriostegui PA-C [address] [place] [address] 10/18/2024 12:30 PM EDT Imaging Radiology [address] [place] [address] Scheduled Procedures Name Priority Associated Diagnoses Date/Ti me COLONOSCOPY FLEXIBLE PROXIMAL DIAGNOSTIC Recall History of colon polyps Health Maintenance Due Date Last Done Comments DISCUSS TOBACCO CESSATION (REFER TO SMARTSET #3701) 1965 COVID-19 Vaccine (#1) 1970 Hepatitis B [...] this encounter Medical Devices Implanted Type Area Large Animal Veterinarian Device Identifier Shelf Expiration Date Model / Serial / Lot Mcdonald Arthrodesis Nail, Left Implanted:Qty: 1 on 06/10/2012 [place] [facility] [place] Tissue - Non Human Left: Leg Upper ALFONZO 04/01/2016 5710-7653 S / / [id number] Screw Locking 1896-5035s - [id number] Implanted:Qty: 1 on 06/10/2012 at [place] [facility] [place] Left: Leg Upper ALFONZO : TRAUMA 08/29/2013 3936-3880 S / / [id number] Screw Locking 1896-5030s - [id number] Implanted:Qty: 1 on 06/10/2012 at [place] [facility] [place] ALFONZO : TRAUMA 04/29/2013 2297-6441 S / / [id number] Screw Threaded Lckg 5x42.5mm - [id number] Implanted:05/31 (Quantity not on file) Left: Leg Upper ALFONZO : ORTHOPAEDICS 12/31/2015 5447-7621 S / / [id number] Screw Locking 1896-5040s - [id number] Implanted:Qty: 1 on 06/10/2012 at [place] [facility] [place] Left: Leg Upper ALFONZO : TRAUMA 07/30/2014 2284-5780 S / / [id number] Screw Compression 1825-0000s - [id number] Implanted:Qty: 1 on 06/10/2012 at [place] [facility] [place] Left: Leg Upper ALFONZO : TRAUMA 12/30/2012 4113-1105 S / / [id number] Screw Shaft 1891-5045s - [id number] Implanted:Qty: 1 on 06/10/2012 at [place] [facility] [place] Left: Leg Upper ALFONZO : ORTHOPAEDICS 12/31/2015 3431-8078 S / / [id number] Mesh Vicryl 12 X 12 Vkm-L - [id number] Implanted:Qty: 1 on 04/25/2020 by Dejuan Kaufman MD at [place] [facility] [place] N/A: Abdomen JNJ : [employer] 04/29/2024 VKM-L / / [id number] Mesh Soft 72f62bp - [id number] Implanted:Qty: 1 on 04/25/2020 by Dejuan Kaufman MD at [place] [facility] [place] N/A: Abdomen CR BARD : DAVOL [id number] 07/27/2024 [id number] / / [id number] documented as of this encounter Visit Diagnoses Diagnosis GERD (gastroesophageal reflux disease)- Primary Esophageal reflux documented in this encounter Advance Directives * [...] Directives occurred with: Not Discussed Care Teams Multiple Wire Sawyer Relationship Specialty Start Date End Date Shazia Bee MD [address] [place] [address] [place] [address] PCP - General Family Medicine 10/30/23 documented as of this encounter
--- OUTSIDE RECORDS SUMMARY | 2024-04-01 20:49 | External Medical Summary | Summary of Care ---
Author Name Unknown Organization [facility] Address [address] [facility] [place] [address] Phone [phone] Care Team Providers Care Motor Builder Assembler Name Role Phone Shazia Bee MD Primary Care Provide r Reason for Visit * Reason Onset Date Comments Precert Approved 11/20/2023 Yassine Encounter Details Date Type Department Care Team (Late st Contact Info) Description 11/20/2023 Telephone Nutrition & Weight Management, [facility] [address] [place] [address] Tiara Gautam PA-C [address] [place] [address] Precert Approved (Yassine) Allergies No known active allergiesdocumented as of this encounter (statuses as of 12/03/2023) Medications Medication Sig Dispensed Refills Start Date [...] for anxiety 270 Tablet 1 03/11/2022 Active traZODone HCl 100 MG Oral Tablet (Desyrel)Indications [...] each evening 180 Tablet 1 08/19/2023 Active Baclofen 20 MG Oral TabletIndications:Ally mbar degenerative disc disease TAKE ONE TABLET BY MOUTH THREE TIMES DAILY in the morning, at noon, and before bedtime if needed for muscle spasms 90 Tablet 2 09/04/2023 Active Gabapentin 600 MG Oral Tablet (Neurontin)Indicatio [...] a week. 2 mL 5 11/20/2023 Active documented as of this encounter (statuses as of 12/03/2023) Active Problems Problem Noted Date Diagnosed Date [...] as of this encounter (statuses as of 12/03/2023) Resolved Problems Problem Noted Date Diagnosed Date [...] PI: Dr. Shima [place] CRC- Keri Zaman ([phone]) [facility] CRC- Cate Trinidad ([phone]) [facility]- Juliasole Villafana ([phone]) Diagnosis changed due to Research Module. Go to Snapshot for study details. Anxiety 04/26/2015 11/20/2016 Recurrent major depressive disorder 04/14/2014 06/21/2019 Adrenal insufficiency 12/12/20132016 FORCE TJR RESEARCH OTHER*[id number] 11/02/2013 03/19/2016 Overview: Patient has completed participation [...] CERVICAL DISC DISPLACMNT 07/20/2001 Mixed dyslipidemia 12/09/2000 12/08/200 9 Overview: Per Lipid Taxonomy. Hypothyroidism 10/24/2014 documented as of this encounter (statuses as of 12/03/2023) Immunizations Name Administration Dates Next Due Pneumococcal Conjugate Vacci ne, 20-valent (Cyrupyr40) 11/15/2021 Pneumococcal Polysaccharide PPV23 (Pneumovax) 06/26/2008 Seasonal [...] encounter Miscellaneous Notes * Telephone Encounter - Parmjit Cortez LPN - 12/03/2023 10:03 AM EDT Patient aware and voiced understanding * Telephone Encounter - Parmjit Cortez LPN - 12/03/2023 10:00 AM EDT Type Date User Summary Attachment Precert 12/03/2023 7:59 AM Julia Muhammad OSA Please see scanned fax from insurance under the Media Tab. - Note: Please see scanned fax from insurance under the Media Tab. Approved/Denied: approved Drug Name and Formulation: wegovy 0.25mg/0.5ml pen How Prescribed(directions/sig): inject 0.25mg weekly Qty and Day Supply: 2ml per 28 days Did you receive insurance information from outside the chart? No, received insurance information within the chart Valid auth start date: 12/01/23 Valid auth end date: 05/31/24 Rx [facility] Reference #: n/a Julia Muhammad Medication Pest Control Service Representative II [facility] 12/03/23,7:58 AM . * Telephone Encounter - Long Ingram PHARM Tech - 11/20/2023 1:31 PM EDT New or re-auth: new Patient Tracy Benavides needs a prior authorization for a medication through their [facility]. Medication: Wegovy Formulation: 0.25mg/0.5mL prefilled pen Dosage: 2mL for 28ds ID: [id number] BIN:[id number] PCN:[id number] Target ship date is n/a. Thank you very much, Caroline Ingram Needle Punch Machine Operator, [facility] 11/20/2023 1:32 PM documented in this encounter Plan of Treatment Upcoming Encounters Date Type Department Care Team (Late st Contact Info) Description 12/07/2023 10:00 AM EDT Office Visit Neurology [facility] 200 [facility] [place] [address] Bridget Argueta PA-C 200 [facility] [place] [address] 12/31/2023 8:40 AM EDT Office Visit Rheumatology [place] [address] [facility] [place] [address] Isidro Phillips MD [facility] [place] [address] 01/08/2024 12:20 PM EST Office Visit Interventional Pain Center, [facility] 132 [facility] [place] [address] Anni Gomez MD [address] [place] [address] 05/24/2024 9:00 AM EDT Office Visit Cardiology [address] [place] [address] Quinn Uriostegui PA-C [address] [place] [address] 10/18/2024 12:30 PM EDT Imaging Radiology [address] [place] [address] Scheduled Procedures Name Priority Associated Diagnoses Date/Ti me COLONOSCOPY FLEXIBLE PROXIMAL DIAGNOSTIC Recall History of colon polyps Health Maintenance Due Date Last Done Comments DISCUSS TOBACCO CESSATION (REFER TO SMARTSET #8751) 1965 COVID-19 Vaccine (#1) 1970 Hepatitis B [...] this encounter Medical Devices Implanted Type Area Counselor Camp Device Identifier Shelf Expiration Date Model / Serial / Lot Alfonzo Arthrodesis Nail, Left Im[place]ed:[place] [facility] [place] - Non Human Left: Leg Upper ALFONZO 04/01/2016 7435-0127 S / / [id number] Screw Locking 1896-5035s - [id number] Implanted:Qty: 1 on 06/10/2012 [place] [facility] [place]: Leg Upper ALFONZO : TRAUMA 08/29/2013 3469-2869 S / / [id number] Screw Locking 1896-5030s - [id number] Implanted:Qty: 1 [place] 06/10[place]2012 [place] [facility] [place] ALFONZO : TRAUMA 04/29/2013 4651-5742 S / / [id number] Screw Threaded Lckg 5x42.5mm - [id number] Implanted:05/31 (Quantity not on file) Left: Leg Upper ALFONZO : ORTHOPAEDICS 12/31/2015 5552-9003 S / / [id number] Screw Locking 1896-5040s - [id number] Implanted:Qty: 1 on 06/10/2012 [place] [facility] [place]: Leg Upper ALFONZO : TRAUMA 07/30/2014 2590-0137 S / / [id number] Screw Compression 1825-0000s - [id number] Implanted:Qty: 1 on 06/10/2012 [place] [facility] [place]: Leg Upper ALFONZO : TRAUMA 12/30/2012 6615-5645 S / / [id number] Screw Shaft 1891-5045s - [id number] Implanted:Qty: 1 on 06/10/2012 [place] [facility] [place]: Leg Upper ALFONZO : ORTHOPAEDICS 12/31/2015 1381-8472 S / / [id number] Mesh Vicryl 12 X 12 Vkm-L - [id number] Implanted:Qty: 1 on 04/25/2020 by Dejuan Kaufman MD [place] [facility] [place]/A: Abdomen JNJ : [employer] 04/29/2024 VKM-L / / [id number] Mesh Soft 62r22ph - [id number] Implanted:Qty: 1 on 04/25/2020 by Dejuan Kaufman MD [place] [facility] [place]/A: Abdomen CR BARD : DAVOL [id number] 07/27/2024 [id number] / / [id number] documented as of this encounter Advance Directives [...] Directives occurred with: Not Discussed Care Teams Motor Builder Assembler Relationship Specialty Start Date End Date Shazia Bee MD [address] [place] [address] [place] [address] PCP - General Family Medicine 10/30/23 documented as of this encounter
--- OUTSIDE RECORDS SUMMARY | 2024-04-01 20:49 | External Medical Summary | Summary of Care ---
Author Name Unknown Organization [facility] Address [address] [place] [address] Phone [phone] Care Team Providers Care Solar System Designer Name Role Phone Shazia Bee MD Primary Care Provide r Reason for Visit * Reason Onset Date Comments Precert Not Needed 08/31/2023 Plaquenil Encounter Details Date Type Department Care Team (Late st Contact Info) Description 08/31/2023 Telephone Dermatology [facility] [address] [place] [address] Adebayo Pressley [facility] [address] [facility] [address] Precert Not Needed (Plaquenil) Allergies No known active allergiesdocumented as of this encounter (statuses as of 11/30/2023) Medications Medication Sig Dispensed Refills Start Date [...] 1 GM Oral Tablet (Valtrex) as needed. 05/28/20 22 Active Pramoxine HCl 1 % External [...] evening 180 Tablet 1 08/19/19 24 Active Omeprazole 40 MG Oral Capsule Delayed Release (PriLOSEC) Take by mouth 1 Capsule in the morning. 90 Capsule 3 06/22/19 22 024 Discontinued(Me dication List Clean Up) DULoxetine HCl 60 MG Oral Capsule Delayed Release Particles (Cymbalta)Indicati ons:LEVI (generalized anxiety disorder),Moderate episode of recurrent major depressive disorder (HCC) Take by mouth 2 Capsules in the morning. 180 Capsule 1 11/16/19 22 024 Discontinued(Me dication List Clean Up) Atorvastatin Calcium 40 MG Oral Tablet (Lipitor) TAKE 1 TABLET BY MOUTH EVERY MORNING 90 Tablet 1 07/14/19 23 024 Discontinued Gabapentin 600 MG Oral Tablet (Neurontin)Indicat ions:Spinal stenosis of lumbar region with neurogenic claudication take 1 tablet in the morning, 1 tablet at noon and 1 tablet before bedtime 270 Tablet 3 10/07/19 23 024 Discontinued(Re fill) Pantoprazole Sodium 40 MG Oral Tablet Delayed Release (Protonix)Indicati ons:Nausea and vomiting, unspecified vomiting type Take 1 Tablet by mouth in the morning. 30 minutes before the first meal of the day. Do not crush, split or chew the tablet. 30 Tablet 5 03/31/19 24 024 Discontinued Furosemide 40 MG Oral Tablet (Lasix)Indications :Bilateral lower extremity edema TAKE ONE TABLET BY MOUTH DAILY NEEDED for swelling 90 Tablet 1 04/03/19 24 024 Discontinued Baclofen 20 MG Oral TabletIndications: Lumbar degenerative disc disease TAKE ONE TABLET BY MOUTH THREE TIMES DAILY in the morning, at noon, and before bedtime if needed for muscle spasms 90 Tablet 08/03/19 24 024 Discontinued rOPINIRole HCl 2 MG Oral Tablet (Requip)Indication s:RLS (restless legs syndrome) TAKE ONE TABLET BY MOUTH ONCE DAILY IN THE EVENING 90 Tablet 08/10/19 24 024 Discontinued Linzess 72 MCG Oral Capsule (linaCLOtide) TAKE 1 CAPSULE BY MOUTH DAILY BEFORE BREAKFAST 90 Capsule 3 08/13/19 24 024 Discontinued Wegovy 0.25 MG/0.5ML Subcutaneous Solution Auto-injector (Semaglutide-Weigh t Management)Indicat ions:Class 1 obesity due to excess calories with serious comorbidity and body mass index (BMI) of 31.0 to 31.9 in adult Inject 0.25 mg under the skin once a week. 2 mL 3 08/27/19 24 024 Discontinued Sucralfate 1 GM Oral Tablet (Carafate) TAKE ONE TABLET BY MOUTH AT BEDTIME. may also take additionally up to 4 times daily if needed for nausea, epigastric pain 360 Tablet 08/28/19 24 024 Discontinued documented as of this encounter (statuses as of 11/30/2023) Active Problems Problem Noted Date Diagnosed Date [...] as of this encounter (statuses as of 11/30/2023) Resolved Problems Problem Noted Date Diagnosed Date [...] [facility]- Keri Zaman ([phone]) [facility] CRC- Cate Trinidad ([phone]) [facility] CRC- Julia Villafana ([phone]) Diagnosis changed due to Research Module. Go to Snapshot for study details. Anxiety 04/26/2015 11/20/2016 Recurrent major depressive disorder 04/14/2014 06/21/2019 Adrenal insufficiency 12/12/20132016 [employer] [facility] RESEARCH OTHER*[id number] 11/02/2013 03/19/2016 Overview: Patient has completed participation in this research study. 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 015 Osteoarthritis, knee 05/14/2012 013 Primary localized [...] as of this encounter (statuses as of 11/30/2023) Immunizations Name Administration Dates Next Due Pneumococcal Conjugate Vacci ne, 20-valent ([id number]) 11/15/2021 Pneumococcal Polysaccharide PPV23 (Pneumovax) 06/26/2008 Seasonal Influenza, PF, 6 M & above, IM , (FluLaval or Fluzone) 01/20/2023,11/15/2021,12/04/2020,11/21,12/17/2018,11/19/2017,11/20/2016 Seasonal Influenza, Quadriva lent, No Preserve, IM 12/17/2015,12/27/2014 Seasonal Influenza, Trivalen t, (IIV3), with Preserv, (Fluzone) 12/01/2013,12/06/2012,11/18/2011,12/06,12/03/2009,12/26/2008,12/27/2007 ,01/08/2007,12/09/2005 TDAP (age 10 and older)(Boostrix) 06/08/2018 TDAP, [...] encounter Miscellaneous Notes * Telephone Encounter - Mey Perez, MORENO - 09/01/2023 9:47 AM EDT Approved/Denied: CLOSED Drug Name and Formulation: Hydroxychloroquine Sulfate 200 MG Oral Tablet (Plaquenil) BID How Prescribed(directions/sig): Hydroxychloroquine Sulfate 200 MG Oral Tablet (Plaquenil) BID Day Supply: 60/30 Did you receive insurance information from outside the chart? No, received insurance information within the chart Valid auth start date: N/A Valid auth end date: N/A Rx Insurance Info: [employer] [place] Reference #: PER [employer], PATIENT HAS ALTERNATE BENEFITS. CHECKED WILLOW. PATIENT HAS [employer] PRIMARY AND [employer] SECONDARY, RAN TEST CLAIM FOR HYDROXYCHLOROQUINE 200MG TABLETS FOR 60 PER 30 DAYS, NOT AVAILABLE FOR FILL UNTIL 09/11/2023. PA NOT NEEDED. Mey Perez Medication Office Machine Servicer III [facility] ([facility]) P: [phone] F: [phone] 09/01/23,9:44 AM * Telephone Encounter - Grover Simpson OSA - 08/31/2023 10:35 AM EDT Images from the original note were not included. Please note, new encounter created under correct department/provider. Thank you. Grover Simpson Medication Office Machine Servicer II [facility] PH: [phone] 08/31/2023, 10:38 AM documented in this encounter Plan of Treatment Upcoming Encounters Date Type Department Care Team (Late st Contact Info) Description 12/07/2023 10:00 AM EDT Office Visit Neurology [facility] [address] [place] [address] Bridget Argueta PA-C [address] [facility] [place] [address] 12/31/2023 8:40 AM EDT Office Visit Rheumatology [place] [address] [facility] [place] [address] Isidro Phillips MD [facility] [place] [address] 01/08/2024 12:20 PM EST Office Visit Interventional Pain Center, [facility] [address] [facility] [place] [address] Anni Gomez MD [address] [place] [address] 05/24/2024 9:00 AM EDT Office Visit Cardiology [address] [place] [address] Quinn Uriostegui PA-C [address] [place] [address] 10/18/2024 12:30 PM EDT Imaging Radiology [address] [place] [address] Scheduled Procedures Name Priority Associated Diagnoses Date/Ti me COLONOSCOPY FLEXIBLE PROXIMAL DIAGNOSTIC Recall History of colon polyps Health Maintenance Due Date Last Done Comments DISCUSS TOBACCO CESSATION (REFER TO SMARTSET #2213) 1965 COVID-19 Vaccine (#1) 1970 Hepatitis B [...] this encounter Medical Devices Implanted Type Area Veterinary Livestock Inspector Device Identifier Shelf Expiration Date Model / Serial / Lot [place] Arthrodesis Nail, Left Implanted:Qty: 1 on 06/10/2012 at OR [facility] Tissue - Non Human Left: Leg Upper ALFONZO 04/01/2016 [id number] S / / [id number] Screw Locking 1896-5035s - [id number] Implanted:Qty: 1 on 06/10/2012 at OR [facility] Left: Leg Upper ALFONZO : TRAUMA 08/29/2013 4423-0845 S / / [id number] Screw Locking 1896-5030s - [id number] Implanted:Qty: 1 on 06/10/2012 at OR [facility] ALFONZO : TRAUMA 04/29/2013 [id number] S / / [id number] Screw Threaded Lckg 5x42.5mm - [id number] Implanted:05/31 (Quantity not on file) Left: Leg Upper ALFONZO : ORTHOPAEDICS 12/31/2015 7608-2757 S / / [id number] Screw Locking 1896-5040s - [id number] Implanted:Qty: 1 on 06/10/2012 at OR [facility] Left: Leg Upper ALFONZO : TRAUMA 07/30/2014 3071-9957 S / / [id number] Screw Compression 1825-0000s - [id number] Implanted:Qty: 1 on 06/10/2012 at OR [facility] Left: Leg Upper ALFONZO : TRAUMA 12/30/2012 1593-4586 S / / [id number] Screw Shaft 1891-5045s - [id number] Implanted:Qty: 1 on 06/10/2012 at OR [facility] Left: Leg Upper ALFONZO : ORTHOPAEDICS 12/31/2015 7334-1574 S / / [id number] Mesh Vicryl 12 X 12 Vkm-L - [id number] Implanted:Qty: 1 on 04/25/2020 by Dejuan Kaufman MD at OR [facility] N/A: Abdomen JNJ : [employer] 04/29/2024 VKM-L / / [id number] Mesh Soft [id number] - [id number] Implanted:Qty: 1 on 04/25/2020 by Dejuan Kaufmna MD at OR [facility] N/A: Abdomen CR BARD : DAVOL [id number] 07/27/2024 [id number] / / [id number] documented as of this encounter Advance Directives [...] Directives occurred with: Not Discussed Care Teams Solar System Designer Relationship Specialty Start Date End Date Shazia Bee MD [address] [place] [address] [place] [address] PCP - General Family Medicine 10/30/23 documented as of this encounter
--- OUTSIDE RECORDS SUMMARY | 2024-04-01 20:49 | External Medical Summary | Summary of Care ---
Author Name Unknown Organization [facility] Address [address] [facility] [place] [address] Phone [phone] Care Team Providers Care Livestock Sales Representative Name Role Phone Shazia Bee MD Primary Care Provide r Reason for Visit * Reason Onset Date Comments Precert Denied 11/19/2023 Lubiprostone Encounter Details Date Type Department Care Team (Late st Contact Info) Description 11/19/2023 Telephone Gastroenterology, [facility] [address] [place] [address] Sheryl Low CRNP [address] [place] [address] Precert Denied (Lubiprostone) Allergies No known active allergiesdocumented as of this encounter (statuses as of 11/20/2023) Medications Medication Sig Dispensed Refills Start Date End Date Status BLOOD PRESSURE CUFF MISCIndications:Fal l for home BP monitoring 1 Kit 1 [...] 2 Active Pramoxine HCl 1 % External LotionIndications:C utaneous lupus erythematosus Apply to back twice daily as needed (please provide lotion gato, pt lives alone) 222 mL 2 2 [...] for anxiety 270 Tablet 1 3 Active traZODone HCl 100 MG Oral Tablet (Desyrel)Indication s:Other insomnia Take 2 tablets for the first [...] 3 Active Hydrocortisone 5 MG Oral Tablet (Cortef)Indications :History of adrenal insufficiency 2 tab in the morning, and 1 tab around 2 pm, triple dose during illness, MDD 9 tabs 270 Tablet 3 4 Active Midodrine HCl 10 MG Oral Tablet (Proamatine)Indicat ions:Orthostatic hypotension,Hypoten pop, unspecified hypotension type Take one tablet shortly before or upon rising in the morning, midday, and late afternoon (not later than 6 PM) 270 Tablet 3 4 Active Potassium Chloride ER 10 MEQ Oral Capsule Extended ReleaseIndications: Hypokalemia Take 1 Capsule by mouth in the morning and 1 Capsule before bedtime. 180 Capsule 1 4 Active Hydroxychloroquine Sulfate 200 MG Oral Tablet (Plaquenil)Indicati ons:Cutaneous lupus erythematosus 2 tablets each evening 180 Tablet 1 4 Active Sucralfate 1 GM Oral Tablet (Carafate) TAKE ONE TABLET BY MOUTH AT BEDTIME. may also take additionally up to 4 times daily if needed for nausea, epigastric pain 360 Tablet 4 Active Baclofen 20 MG Oral TabletIndications:L umbar degenerative disc disease TAKE ONE TABLET BY MOUTH THREE TIMES DAILY in the morning, at noon, and before bedtime if needed for muscle spasms 90 Tablet 2 4 Active Gabapentin 600 MG Oral Tablet (Neurontin)Indicati ons:Spinal stenosis of lumbar region with neurogenic claudication take 1 tablet in the morning, 1 tablet at noon and 1 tablet before bedtime 270 Tablet 1 4 Active Furosemide 40 MG Oral Tablet (Lasix)Indications: Bilateral lower extremity edema TAKE ONE TABLET BY MOUTH DAILY NEEDED for swelling 90 Tablet 4 Active Atorvastatin Calcium 40 MG Oral Tablet (Lipitor) TAKE ONE TABLET BY MOUTH IN THE MORNING 90 Tablet 4 Active Meloxicam 15 MG Oral Tablet (Mobic)Indications: Lumbar degenerative disc disease,DDD (degenerative disc disease), cervical Take 1 Tablet by mouth in the morning. for pain.. 90 Tablet 1 4 Active rOPINIRole HCl 2 MG Oral Tablet (Requip)Indications :RLS (restless legs syndrome) TAKE ONE TABLET BY MOUTH ONCE DAILY IN THE EVENING 90 Tablet 4 Active Lubiprostone 24 MCG Oral Capsule (Amitiza) Take 1 Capsule by mouth 2 times a day with morning and evening meals. 60 Capsule 3 4 Active Pantoprazole Sodium 40 MG Oral Tablet Delayed Release (Protonix)Indicatio ns:Nausea and vomiting, unspecified vomiting type Take 1 Tablet by mouth in the morning and 1 Tablet before bedtime. Do not crush, split or chew the tablet. 60 Tablet 1 4 Active Wegovy 0.25 MG/0.5ML Subcutaneous Solution Auto-injector (Semaglutide-Weight Management) Inject 0.25 mg under the skin once a week. 2 mL 5 4 11/19/19 24 Discontinu ed(Refill) documented as of this encounter (statuses as of 11/20/2023) Active Problems Problem Noted Date Diagnosed Date [...] as of this encounter (statuses as of 11/20/2023) Resolved Problems Problem Noted Date Diagnosed Date [...] [facility]- Keri Zaman ([phone]) [facility]- Cate Trinidad ([phone]) [facility]- Julia Villafana ([phone]) Diagnosis changed due to Research Module. Go to Snapshot for study details. Anxiety 04/26/2015 11/20/2016 Recurrent major depressive disorder 04/14/2014 06/21/2019 Adrenal insufficiency 12/12/20132016 [employer] T[employer] RESEARCH OTHER*[id number] 11/02/2013 03/19/2016 Overview: Patient has completed participation [...] as of this encounter (statuses as of 11/20/2023) Immunizations Name Administration Dates Next Due Pneumococcal Conjugate Vacci ne, 20-valent ([id number]) 11/15/2021 Pneumococcal Polysaccharide PPV23 (Pneumovax) 06/26/2008 Seasonal [...] auth end date: N/A Rx Insurance Info: [employer] [place] Reference #: [id number] * Telephone Encounter - Lashawn Armstrong LPN - 11/19/2023 4:15 PM EDT Gastro Pre-Cert Request Specialty Medication: No. Medication/Disease State Information: Medication: Lubiprostone 24 MCG Oral Capsule (Amitiza) Diagnosis (including ICD-10): GERD, K21.9 Site of care: Self-administered - route pre-cert request to [id number] Office Information: Prescriber: RAJWINDER Celeste documented in this encounter Plan of Treatment Upcoming Encounters Date Type Department Care Team (Late st Contact Info) Description 11/25/2023 11:15 AM EDT Office Visit General Surgery, [facility] [address] [place] [address] Swati Pond MD [address] [place], [place] [id number] 12/07/2023 10:00 AM EDT Office Visit Neurology [facility] [address] [place] [address] Bridget Argueta PA-C 200 [facility] [place] [address] 12/31/2023 8:40 AM EDT Office Visit Rheumatology [place] [address] [facility] [place] [address] Isidro Phillips MD [facility] [address] [place] [address] 01/08/2024 12:20 PM EST Office Visit Interventional Pain Center, [facility] 132 [facility] [place] [address] Anni Gomez MD [address] [place] [address] 05/24/2024 9:00 AM EDT Office Visit Cardiology [address] [place] [address] Quinn Uriostegui PAOpalC [address] [place] [address] 10/18/2024 12:30 PM EDT Imaging Radiology [address] [place] [address] Scheduled Procedures Name Priority Associated Diagnoses Date/Ti me COLONOSCOPY FLEXIBLE PROXIMAL DIAGNOSTIC Recall History of colon polyps Health Maintenance Due Date Last Done Comments DISCUSS TOBACCO CESSATION (REFER TO SMARTSET #7079) 1965 COVID-19 Vaccine (#1) 1970 Hepatitis B [...] this encounter Medical Devices Implanted Type Area Route Driver Device Identifier Shelf Expiration Date Model / Serial / Lot [place] Arthrodesis Nail, Left Implanted:Qty: 1 on 06/10/2012 at OR [facility] Tissue - Non Human Left: Leg Upper ALFONZO 04/01/2016 3593-6295 S / / [id number] Screw Locking 1896-5035s - [id number] Implanted:Qty: 1 on 06/10/2012 at OR [facility] Left: Leg Upper ALFONZO : TRAUMA 08/29/2013 6683-1551 S / / [id number] Screw Locking 1896-5030s - [id number] Implanted:Qty: 1 on 06/10/2012 at OR [facility] ALFONZO : TRAUMA 04/29/2013 3477-6912 S / / [id number] Screw Threaded Lckg 5x42.5mm - [id number] Implanted:05/31 (Quantity not on file) Left: Leg Upper ALFONZO : ORTHOPAEDICS 12/31/2015 3543-7668 S / / [id number] Screw Locking 1896-5040s - [id number] Implanted:Qty: 1 on 06/10/2012 at OR [facility] Left: Leg Upper ALFONZO : TRAUMA 07/30/2014 9888-5129 S / / [id number] Screw Compression 1825-0000s - [id number] Implanted:Qty: 1 on 06/10/2012 at OR [facility] Left: Leg Upper ALFONZO : TRAUMA 12/30/2012 6397-2231 S / / [id number] Screw Shaft 1891-5045s - [id number] Implanted:Qty: 1 on 06/10/2012 at OR [facility] Left: Leg Upper ALFONZO : ORTHOPAEDICS 12/31/2015 3508-4809 S / / [id number] Mesh Vicryl 12 X 12 Vkm-L - [id number] Implanted:Qty: 1 on 04/25/2020 by Dejuan Kaufman MD at OR [facility] N/A: Abdomen JNJ : [employer] 04/29/2024 VKM-L / / [id number] Mesh Soft [id number] - [id number] Implanted:Qty: 1 on 04/25/2020 by Dejuan Kaufman MD at OR [facility] N/A: Abdomen CR BARD : DAVOL [id number] 07/27/2024 [id number] / / [id number] documented as of this encounter Visit Diagnoses [...] Directives occurred with: Not Discussed Care Teams Livestock Sales Representative Relationship Specialty Start Date End Date Shazia Bee MD [address] [place] [address] [place] [address] PCP - General Family Medicine 10/30/23 documented as of this encounter
--- OUTSIDE RECORDS SUMMARY | 2024-04-01 20:49 | External Medical Summary | Summary of Care ---
Author Name Unknown Organization [facility] Address [address] [facility] [place] [address] Phone [phone] Care Team Providers Care Blacking Machine Operator Name Role Phone Shazia Bee MD Primary Care Provide r Reason for Visit * Reason Onset Date Comments Follow Up 11/06/2023 Encounter Details Date Type Department Care Team (Late st Contact Info) Description 11/06/2023 Telephone Family Medicine [address] [phone] Tiara Gautam PA-C [address] [place] [address] Follow Up Allergies No known active allergiesdocumented as of this encounter (statuses as of 12/09/2023) Medications Medication Sig Dispensed Refills Start Date [...] pain.. 90 Tablet 1 10/30/19 24 Active Pantoprazole Sodium 40 MG Oral Tablet Delayed Release (Protonix)Indicati ons:Nausea and vomiting, unspecified vomiting type Take 1 Tablet by mouth in the morning and 1 Tablet before bedtime. Do not crush, split or chew the tablet. 60 Tablet 1 11/06/19 24 Active rOPINIRole HCl 2 MG Oral Tablet (Requip)Indication s:RLS (restless legs syndrome) TAKE ONE TABLET BY MOUTH ONCE DAILY IN THE EVENING 90 Tablet 08/10/19 24 024 Discontinued Sucralfate 1 GM Oral Tablet (Carafate) TAKE ONE TABLET BY MOUTH AT BEDTIME. may also take additionally up to 4 times daily if needed for nausea, epigastric pain 360 Tablet 08/28/19 24 024 Discontinued Baclofen 20 MG Oral TabletIndications: Lumbar degenerative disc disease TAKE ONE TABLET BY MOUTH THREE TIMES DAILY in the morning, at noon, and before bedtime if needed for muscle spasms 90 Tablet 2 09/04/19 24 024 Discontinued Ozempic (0.25 or 0.5 MG/DOSE) 2 MG/3ML Solution Pen-injector (Semaglutide(0.25 or 0.5MG/DOS)) Inject 0.25mg under the skin once weekly for 4 weeks then increase to 0.5mg under the skin once weekly thereafter 9 mL 1 11/05/19 24 024 Discontinued(Re fill) Lubiprostone 24 MCG Oral Capsule (Amitiza) Take 1 Capsule by mouth 2 times a day with morning and evening meals. 60 Capsule 3 09/08/20 23 024 Discontinued documented as of this encounter (statuses as of 12/09/2023) Active Problems Problem Noted Date Diagnosed Date [...] as of this encounter (statuses as of 12/09/2023) Resolved Problems Problem Noted Date Diagnosed Date [...] [facility]- Keri Zaman ([phone]) [facility] CRC- Cate Trinidad ([phone]) [facility] CRC- Julia Villafana ([phone]) Diagnosis changed due to Research Module. Go to Snapshot for study details. Anxiety 04/26/2015 11/20/2016 Recurrent major depressive disorder 04/14/2014 06/21/2019 Adrenal insufficiency 12/12/20132016 [employer]CE TJR RESEARCH OTHER*[id number] 11/02/2013 03/19/2016 Overview: Patient has completed participation [...] as of this encounter (statuses as of 12/09/2023) Immunizations Name Administration Dates Next Due Pneumococcal Conjugate Vacci ne, 20-valent ([id number]) 11/15/2021 Pneumococcal Polysaccharide PPV23 (Pneumovax) 06/26/2008 Seasonal [...] No 04/24/2020 documented as of this encounter Plan of Treatment Upcoming Encounters Date Type Department Care Team (Late st Contact Info) Description 12/14/2023 8:40 AM EDT Office Visit Neurology [facility] [address] [facility] [place] [address] Bridget Argueta PA-C [address] [facility] [place] [address] 12/31/2023 8:40 AM EDT Office Visit Rheumatology [place] [id number] [facility] [place] [address] Isidro Phillips MD [address] [facility] [place] [address] 01/08/2024 12:20 PM EST Office Visit Interventional Pain Center, [facility] [address] [place] [address] Anni Gomez MD [address] [facility] [place] [id number] 05/24/2024 9:00 AM EDT Office Visit Cardiology [address] [place] [address] Quinn Uriostegui PA-C [address] [place] [address] 10/18/2024 12:30 PM EDT Imaging Radiology [address] [place] [address] Scheduled Procedures Name Priority Associated Diagnoses Date/Ti me COLONOSCOPY FLEXIBLE PROXIMAL DIAGNOSTIC Recall History of colon polyps Health Maintenance Due Date Last Done Comments DISCUSS TOBACCO CESSATION (REFER TO SMARTSET #2013) 1965 COVID-19 Vaccine (#1) 1970 Hepatitis B [...] this encounter Medical Devices Implanted Type Area Digital Assistant Device Identifier Shelf Expiration Date Model / Serial / Lot Alfonzo Arthrodesis Nail, Left Implanted:Qty: 1 on 06/10/[address] [facility] [place] Tissue - Non Human Left: Leg Upper ALFONZO 04/01/2016 8723-5435 S / / [id number] Screw Locking 1896-5035s - [id number] Implanted:Qty: 1 on 06/10/[address] [facility] [place] Left: Leg Upper ALFONZO : TRAUMA 08/29/2013 1857-8301 S / / [id number] Screw Locking 1896-5030s - [id number] Implanted:Qty: 1 on 06/10/[address] [facility] [place] ALFONZO : TRAUMA 04/29/2013 1803-3847 S / / [id number] Screw Threaded Lckg 5x42.5mm - [id number] Implanted:05/31 (Quantity not on file) Left: Leg Upper ALFONZO : ORTHOPAEDICS 12/31/2015 6199-6616 S / / [id number] Screw Locking 1896-5040s - [id number] Implanted:Qty: 1 on 06/10/[address] [facility] [place] Left: Leg Upper ALFONZO : TRAUMA 07/30/2014 1222-8369 S / / [id number] Screw Compression 1825-0000s - [id number] Implanted:Qty: 1 on 06/10/[address] [facility] [place] Left: Leg Upper ALFONZO : TRAUMA 12/30/2012 0059-4813 S / / [id number] Screw Shaft 1891-5045s - [id number] Implanted:Qty: 1 on 06/10/[address] [facility] [place] Left: Leg Upper ALFONZO : ORTHOPAEDICS 12/31/2015 9933-4587 S / / [id number] Mesh Vicryl 12 X 12 Vkm-L - [id number] Implanted:Qty: 1 on 04/25/2020 by Dejuan Kaufman MD at OR [facility] [place] N/A: Abdomen JNJ : [employer] 04/29/2024 VKM-L / / [id number] Mesh Soft [id number] - [id number] Implanted:Qty: 1 on 04/25/2020 by Dejuan Kaufman MD at OR [facility] [place] N/A: Abdomen CR BARD : DAVOL [id number] 07/27/2024 [id number] / / [id number] documented as of this encounter Advance Directives [...] Directives occurred with: Not Discussed Care Teams Blacking Machine Operator Relationship Specialty Start Date End Date Shazia Bee MD [address] [place] [address] [place] [address] PCP - General Family Medicine 10/30/23 documented as of this encounter
--- OUTSIDE RECORDS SUMMARY | 2024-04-01 20:49 | External Medical Summary | Summary of Care ---
Author Name Unknown Organization [facility] Address [address] [place] [address] Phone [phone] Care Team Providers Care Tile Molder Hand Name Role Phone Shazia Bee MD Primary Care Provide r Reason for Visit * Reason Comments eRx-Medication Refill Encounter Details Date Type Department Care Team (Late st Contact Info) Description 12/04/2023 Refill Family Medicine [address] [phone] Shazia Bee MD [address] [place], [place] [address] [address] Lumbar degenerative disc disease Allergies No known active allergiesdocumented as of this encounter (statuses as of 12/07/2023) Medications Medication Sig Dispensed Refills Start Date [...] Active Wegovy 0.25 MG/0.5ML Subcutaneous Solution Auto-injector (SemaglutideSahale Snacks t Management) Inject 0.25 mg (1 pen) [...] for muscle spasms 90 Tablet 4 Active Baclofen 20 MG Oral TabletIndications: Lumbar degenerative disc disease TAKE ONE TABLET BY MOUTH THREE TIMES DAILY in the morning, at noon, and before bedtime if needed for muscle spasms 90 Tablet 2 4 12/07/19 24 Discontinued documented as of this encounter (statuses as of 12/07/2023) Active Problems Problem Noted Date Diagnosed Date [...] as of this encounter (statuses as of 12/07/2023) Resolved Problems Problem Noted Date Diagnosed Date [...] [facility]- Keri Zaman ([phone]) [facility]- Cate Trinidad ([phone]) [facility] CRC- Julia Villafana ([phone]) Diagnosis changed due to Research Module. Go to Snapshot for study details. Anxiety 04/26/2015 11/20/2016 Recurrent major depressive disorder 04/14/2014 06/21/2019 Adrenal insufficiency 12/12/20132016 [employer] T[employer] RESEARCH OTHER*[id number] 11/02/2013 03/19/2016 Overview: Patient has completed participation [...] as of this encounter (statuses as of 12/07/2023) Immunizations Name Administration Dates Next Due Pneumococcal Conjugate Vacci ne, 20-valent (Keiykgb19) 11/15/2021 Pneumococcal Polysaccharide PPV23 (Pneumovax) 06/26/2008 Seasonal [...] Telephone Encounter - Shazia Bee MD - 12/07/2023 10:54 AM EDT Signed Prescriptions: Disp Refills Baclofen 20 MG Oral Tablet 90 Tab*0 Sig: TAKE ONE TABLET BY MOUTH THREE TIMES DAILY in the morning, at noon, and before bedtime if needed for muscle spasms Authorizing Provider: SHAZIA BEE * Telephone Encounter - Interface, E-Rx Ss Inbound - 12/06/2023 6:02 AM EDT Pending Prescriptions: Disp Refills Baclofen 20 MG Oral Tablet [Pharmacy Med N*90 Tab*0 Sig: TAKE ONE TABLET BY MOUTH THREE TIMES DAILY in the morning, at noon, and before bedtime if needed for muscle spasms * Telephone Encounter - Kaela Venegas RPh - 12/05/2023 1:25 PM EDT Pending Prescriptions: Disp Refills Baclofen 20 MG Oral Tablet [Pharmacy Med N*90 Tab*0 Sig: TAKE ONE TABLET BY MOUTH THREE TIMES DAILY in the morning, at noon, and before bedtime if needed for muscle spasms * Telephone Encounter - Kaela Venegas RPh - 12/05/2023 1:25 PM EDT [facility] is currently not authorized to approve refills for the pended medication(s) per refill protocol. Please approve if appropriate. Thank you, Kaela Venegas, PharmD Clinical Pharmacist [facility] ([facility]) 12/05/23 1:25 PM [phone] documented in this encounter Plan of Treatment Upcoming Encounters Date Type Department Care Team (Late st Contact Info) Description 12/14/2023 8:40 AM EDT Office Visit Neurology [facility] [place] [address] [place] [address] [address] Bridget Argueta PA-C [address] [place] [address] [address] 12/31/2023 8:40 AM EDT Office Visit Rheumatology [facility] [address] [place] [address] [address] Isidro Phillips MD [address] [facility] [place] [address] 01/08/2024 12:20 PM EST Office Visit Interventional Pain Center, [facility] [address] [place] [address] Anni Gomez MD [address] [place] [address] [place] [address] 05/24/2024 9:00 AM EDT Office Visit Cardiology [address] [place] [address] Quinn Uriostegui PA-C [address] [place] [address] 10/18/2024 12:30 PM EDT Imaging Radiology [address] [place] [address] Scheduled Procedures Name Priority Associated Diagnoses Date/Ti me COLONOSCOPY FLEXIBLE PROXIMAL DIAGNOSTIC Recall History of colon polyps Health Maintenance Due Date Last Done Comments DISCUSS TOBACCO CESSATION (REFER TO SMARTSET #8881) 1965 COVID-19 Vaccine (#1) 1970 Hepatitis B [...] this encounter Medical Devices Implanted Type Area Site Specialist Device Identifier Shelf Expiration Date Model / Serial / Lot Alfonzo Arthrodesis Nail, Left Implanted:Qty: 1 [place] [facility] [place] Non Human Left: Leg Upper ALFONZO 04/01/2016 0571-9825 S / / [id number] Screw Locking 1896-5035s - [id number] Implanted:Qty: 1 on 06/10/2012 [place] [facility] [place]: Leg Upper ALFONZO : TRAUMA 08/29/2013 3703-9523 S / / [id number] Screw Locking 1896-5030s - [id number] Implanted:Qty: 1 on 06/10/2012 [place] [facility] [place] ALFONZO : TRAUMA 04/29/2013 0021-3074 S / / [id number] Screw Threaded Lckg 5x42.5mm - [id number] Implanted:05/31 (Quantity not on file) Left: Leg Upper ALFONZO : ORTHOPAEDICS 12/31/2015 4859-8049 S / / [id number] Screw Locking 1896-5040s - [id number] Implanted:Qty: 1 on 06/10/2012 [place] [facility] [place]: Leg Upper ALFONZO : TRAUMA 07/30/2014 2501-4862 S / / [id number] Screw Compression 1825-0000s - [id number] Implanted:Qty: 1 on 06/10/2012 at [facility] Left: Leg Upper ALFONZO : TRAUMA 12/30/2012 7911-0184 S / / [id number] Screw Shaft 1891-5045s - [id number] Implanted:Qty: 1 on 06/10/2012 [place] [facility] [place]: Leg Upper ALFONZO : ORTHOPAEDICS 12/31/2015 3517-4797 S / / [id number] Mesh Vicryl 12 X 12 Vkm-L - [id number] Implanted:Qty: 1 on 04/25/2020 by Dejuan Kaufman [place] [facility] [place]/A: Abdomen JNJ : [employer] 04/29/2024 VKM-L / / [id number] Mesh Soft [id number] - [id number] Implanted:Qty: 1 on 04/25/2020 by Dejuan Kaufman [place] [facility] [place]A: Abdomen CR BARD : DAVOL [id number] 07/27/2024 [id number] / / [id number] documented as of this encounter Visit Diagnoses [...] Directives occurred with: Not Discussed Care Teams Tile Molder Hand Relationship Specialty Start Date End Date Shazia Bee MD [address] [place] [address] [place] [address] PCP - General Family Medicine 10/30/23 documented as of this encounter
--- OUTSIDE RECORDS SUMMARY | 2024-04-01 20:49 | External Medical Summary | Summary of Care ---
Author Name Unknown Organization [facility] Address [address] [facility] [place] [address] Phone [phone] Care Team Providers Care Mental Health Specialist Name Role Phone Shazia Bee MD Primary Care Provide r Reason for Visit * Reason Onset Date Comments Precert Denied 11/06/2023 OZempic Encounter Details Date Type Department Care Team (Late st Contact Info) Description 11/06/2023 Telephone Nutrition & Weight Management, [facility] [address] [place] [address] Tiara Gautam PA-C [address] [place] [address] Precert Denied (OZempic) Allergies No known active allergiesdocumented as of this encounter (statuses as of 12/01/2023) Medications Medication Sig Dispensed Refills Start Date [...] pain.. 90 Tablet 1 10/30/19 24 Active Wegovy 0.25 MG/0.5ML Subcutaneous Solution Auto-injector (Semaglutide-Weigh t Management) Inject 0.25 mg (1 pen) under the skin once a week. 2 mL 5 11/20/19 24 Active rOPINIRole HCl 2 MG Oral Tablet (Requip)Indication s:RLS (restless legs syndrome) TAKE ONE TABLET BY MOUTH ONCE DAILY IN THE EVENING 90 Tablet 08/10/19 24 024 Discontinued Sucralfate 1 GM Oral Tablet (Carafate) TAKE ONE TABLET BY MOUTH AT BEDTIME. may also take additionally up to 4 times daily if needed for nausea, epigastric pain 360 Tablet 08/28/19 24 024 Discontinued Ozempic (0.25 or 0.5 MG/DOSE) 2 MG/3ML Solution Pen-injector (Semaglutide(0.25 or 0.5MG/DOS)) Inject 0.25mg under the skin once weekly for 4 weeks then increase to 0.5mg under the skin once weekly thereafter 9 mL 1 11/05/19 24 024 Discontinued(Re fill) Wegovy 0.25 MG/0.5ML Subcutaneous Solution Auto-injector (Semaglutide-Weigh t Management) Inject 0.25 mg under the skin once a week. 2 mL 5 11/19/19 24 024 Discontinued(Re fill) documented as of this encounter (statuses as of 12/01/2023) Active Problems Problem Noted Date Diagnosed Date [...] as of this encounter (statuses as of 12/01/2023) Resolved Problems Problem Noted Date Diagnosed Date [...] PI: Dr. Shima [facility]- Keir Zaman ([phone]) [facility] CRC- Cate Trinidad ([phone]) [facility] CRC- Julia Villafana ([phone]) Diagnosis changed due to Research Module. Go to Snapshot for study details. Anxiety 04/26/2015 11/20/2016 Recurrent major depressive disorder 04/14/2014 06/21/2019 Adrenal insufficiency 12/12/20132016 [employer] TJR RESEARCH OTHER*[id number] 11/02/2013 03/19/2016 Overview: Patient has completed participation [...] as of this encounter (statuses as of 12/01/2023) Immunizations Name Administration Dates Next Due Pneumococcal Conjugate Vacci ne, 20-valent (Olosveg71) 11/15/2021 Pneumococcal Polysaccharide PPV23 (Pneumovax) 06/26/2008 Seasonal [...] encounter Miscellaneous Notes * Addendum Note - Tiara Gautam PA-C - 11/20/2023 8:03 AM EDTAddended by: TIARA GAUTAM on: 11/20/2023 08:03 AM Modules accepted: Orders * Telephone Encounter - Parmjit Cortez LPN - 11/19/2023 2:46 PM EDT Script pended to [facility] * Addendum Note - Parmjit Cortez LPN - 11/19/2023 10:36 AM EDTAddended by: PARMJIT CORTEZ on: 11/19/2023 10:36 AM Modules accepted: Orders * Telephone Encounter - Parmjit Cortez LPN - 11/18/2023 4:13 PM EDT Type Date User Summary Attachment Precert 11/18/2023 11:59 AM Julia Muhammad OSA Please see scanned fax from insurance under the MediaTab. - Note: Please see scanned fax from insurance under the Media Tab. Approved/Denied: denied Other (see below) Drug Name and Formulation: Ozempic 0.25 or 0.5mg/dose pen How Prescribed(directions/sig): Inject 0.25mg under the skin once weekly for 4 weeks then increase to 0.5mg under the skin once weekly thereafter Qty and Day Supply: 9ml per 4 days Did you receive insurance information from outside the chart? No, received insurance information within the chart Valid auth start date: N/A Valid auth end date: N/A Rx Insurance Info: [employer] [place] Reference #: n/a Julia Muhammad Medication Hairspring Studder II [facility] 11/18/23,11:58 AM . Type Date User Summary Attachment ert 11/17/2023 8:34 AM Julia Muhammad OSA Submitted to secondary with exclusion letter. - Note: Submitted to secondary with exclusion letter. [facility] Authorization Submission Submission Information: Medication: ozempic Portal used: [facility] Insurance: [employer] Authorization #/Ray: [id number] . Type Date User Summary Attachment ert 11/16/2023 2:59 PM Arina Malik OSA [employer] excludes medication. - Note: [employer] excludes medication. Message from Plan Request Reference Number: [id number]. OZEMPIC INJ 2MG/3ML is denied due to Plan Exclusion. For further questions, call . . Type Date User Summary Attachment Precert 11/09/2023 12:44 PM Julia Muhammad OSA [facility] Authorization Submission - Note: [facility] Authorization Submission Submission Information: Medication: Ozempic Portal used: [facility] Insurance: [employer] Medicare Authorization #/Ray: [id number] * Telephone Encounter - Arina Malik OSA - 11/16/2023 2:59 PM EDT Office reached out for update. [employer] excludes medication per CMM. Message from Plan Request Reference Number: [id number]. OZEMPIC INJ 2MG/3ML is denied due to Plan Exclusion. For further questions, call . Julia may you try to submit to secondary for review? Thank you Arina Malik [facility] 11/16/2023,3:00 PM * Telephone Encounter - Anna Navarro CPhT - 11/06/2023 12:37 PM EDT New or re-auth: New Patient Tracy Benavides needs a prior authorization for a medication through their [employer] insurance. Medication: Ozempic 0.25/0.5 and 0.5/0.5 Formulation: sopn Dosage: Inject 0.25mg under the skin once weekly for 4 weeks then increase to 0.5mg under the skin once weekly thereafter ID: [id number] [id number] PCN:[id number] Phone: [phone] Target ship date is na. Thank you very much, Anna Navarro [facility] 11/06/2023,12:38 PM documented in this encounter Plan of Treatment Upcoming Encounters Date Type Department Care Team (Late st Contact Info) Description 12/07/2023 10:00 AM EDT Office Visit Neurology [facility] [place] [address] [place] [address] Bridget Argueta PA-C [address] [place] [address] [place] [address] 12/31/2023 8:40 AM EDT Office Visit Rheumatology [place] [address] [place] [address] Isidro Phillips MD [facility] [place], [place] [phone] 01/08/2024 12:20 PM EST Office Visit Interventional Pain Center, [facility] [address] [place] [address] Anni Gomez MD [address] [facility] [place] [address] 05/24/2024 9:00 AM EDT Office Visit Cardiology [address] [place] [address] Quinn Uriostegui PA-C [address] [place] [address] 10/18/2024 12:30 PM EDT Imaging Radiology [address] [place] [address] Scheduled Procedures Name Priority Associated Diagnoses Date/Ti me COLONOSCOPY FLEXIBLE PROXIMAL DIAGNOSTIC Recall History of colon polyps Health Maintenance Due Date Last Done Comments DISCUSS TOBACCO CESSATION (REFER TO SMARTSET #3296) 1965 COVID-19 Vaccine (#1) 1970 Hepatitis B [...] this encounter Medical Devices Implanted Type Area Business Risk Consultant Device Identifier Shelf Expiration Date Model / Serial / Lot Alfonzo Arthrodesis Nail, Left Implanted:Qty: 1 on 06/10/2012 at [place] [facility] [place] Tissue - Non Human Left: Leg Upper ALFONZO 04/01/2016 4655-4093 S / / [id number] Screw Locking 1896-5035s - [id number] Implanted:Qty: 1 on 06/10/2012 at OR [facility] [place] Left: Leg Upper ALFONZO : TRAUMA 08/29/2013 3251-3660 S / / [id number] Screw Locking 1896-5030s - [id number] Implanted:Qty: 1 on 06/10/2012 at OR [facility] [place] ALFONZO : TRAUMA 04/29/2013 2532-8766 S / / [id number] Screw Threaded Lckg 5x42.5mm - [id number] Implanted:05/31 (Quantity not on file) Left: Leg Upper ALFONZO : ORTHOPAEDICS 12/31/2015 2476-0824 S / / [id number] Screw Locking 1896-5040s - [id number] Implanted:Qty: 1 on 06/10/2012 at OR [facility] [place] Left: Leg Upper ALFONZO : TRAUMA 07/30/2014 5911-2378 S / / [id number] Screw Compression 1825-0000s - [id number] Implanted:Qty: 1 on 06/10/2012 at OR [facility] [place] Left: Leg Upper ALFONZO : TRAUMA 12/30/2012 4701-3214 S / / [id number] Screw Shaft 1891-5045s - [id number] Implanted:Qty: 1 on 06/10/2012 at OR [facility] [place] Left: Leg Upper ALFONZO : ORTHOPAEDICS 12/31/2015 3262-0234 S / / [id number] Mesh Vicryl 12 X 12 Vkm-L - [id number] Implanted:Qty: 1 on 04/25/2020 by Dejuan Kaufman MD at OR [facility] [place] N/A: Abdomen JNJ : [employer] 04/29/2024 VKM-L / / [id number] Mesh Soft [id number] - [id number] Implanted:Qty: 1 on 04/25/2020 by Dejuan Kaufman MD at OR [facility] [place] N/A: Abdomen CR BARD : DAVOL [id number] 07/27/2024 [id number] / / [id number] documented as of this encounter Advance Directives [...] Directives occurred with: Not Discussed Care Teams Mental Health Specialist Relationship Specialty Start Date End Date Shazia Bee MD [address] [place] [address] [place] [address] PCP - General Family Medicine 10/30/23 documented as of this encounter
--- OUTSIDE RECORDS SUMMARY | 2024-04-01 20:49 | External Medical Summary | Summary of Care ---
Author Name Unknown Organization [facility] Address [address] [facility] [place] [address] Phone [phone] Care Team Providers Care Concrete Paver Name Role Phone Shazia Bee MD Primary Care Provide r Reason for Visit * Reason Comments eRx-Medication Refill Encounter Details Date Type Department Care Team (Late st Contact Info) Description 11/21/2023 Refill Gastroenterology, [facility] [address] [facility] [place] [address] Amando Pacheco CRNP [address] [place] [address] Allergies No known active allergiesdocumented as of this encounter (statuses as of 11/22/2023) Medications Medication Sig Dispensed Refills Start Date [...] each evening 180 Tablet 1 4 Active Baclofen 20 MG Oral TabletIndications: [...] nausea, epigastric pain 360 Tablet 4 Active Sucralfate 1 GM Oral Tablet (Carafate) TAKE ONE TABLET BY MOUTH AT BEDTIME. may also take additionally up to 4 times daily if needed for nausea, epigastric pain 360 Tablet 4 11/22/19 24 Discontinued documented as of this encounter (statuses as of 11/22/2023) Active Problems Problem Noted Date Diagnosed Date [...] as of this encounter (statuses as of 11/22/2023) Resolved Problems Problem Noted Date Diagnosed Date [...] [facility]- Keri Zaman ([phone]) [facility]- Cate Trinidad ([phone]) [facility] CRC- Julia Villafana ([phone]) Diagnosis changed due to Research Module. Go to Snapshot for study details. Anxiety 04/26/2015 11/20/2016 Recurrent major depressive disorder 04/14/2014 06/21/2019 Adrenal insufficiency 12/12/20132016 FORCE TJR RESEARCH OTHER*[id number] 11/02/2013 03/19/2016 Overview: Patient has completed participation [...] as of this encounter (statuses as of 11/22/2023) Immunizations Name Administration Dates Next Due Pneumococcal Conjugate Vacci ne, 20-valent ([id number]) 11/15/2021 Pneumococcal Polysaccharide PPV23 (Pneumovax) 06/26/2008 Seasonal [...] * Telephone Encounter - Jose Armando Lund RPh - 11/22/2023 10:37 AM EDTSigned Prescriptions: Disp Refills Sucralfate 1 GM Oral Tablet (Carafate) 360 Ta*0 Sig: TAKE ONE TABLET BY MOUTH AT BEDTIME. may also take additionally up to 4 times daily if needed for nausea, epigastric painAuthorizing Provider: AMANDO PACHECO User: JOSE ARMANDO LUND * Telephone Encounter - Lamin Neff - 11/21/2023 2:08 PM EDTPending Prescriptions: Disp Refills Sucralfate 1 GM Oral Tablet [Pharmacy Med *360 Ta*0 Sig: TAKE ONE TABLET BY MOUTH AT BEDTIME. may also take additionally up to 4 times daily if needed for nausea, epigastric pain * Telephone Encounter - Lamin Neff deshaun - 11/21/2023 2:05 PM EDT Did you pend patient's preferred pharmacy and medication before forwarding?yes Pharmacy: [id number] Pending Prescriptions: Disp Refills Sucralfate 1 GM Oral Tablet (Carafate) [P*360 Ta*0 Sig: TAKE ONE TABLET BY MOUTH AT BEDTIME. may also take additionally up to 4 times daily if needed for nausea, epigastric pain Last Visit: 05/06/2022 (in office), Visit date not found (telemedicine) Next Visit: Visit date not found If no future appointments scheduled, and last appointment is greater than a year ago, please schedule patient for a follow-up appointment Last date the medication was ordered: 08/28/2023 Is this request for a controlled substance?No [...] 11:15 AM EDT Office Visit General Surgery, [place] [address] [facility] [place] [address] Swati Pond MD [address] [place] [address] 12/07/2023 10:00 AM EDT Office Visit Neurology [facility] [address] [facility] [place] [address] Bridget Argueta PA-C [address] [facility] [place] [address] 12/31/2023 8:40 AM EDT Office Visit Rheumatology [place] [address] [facility] [place] [address] Isidro Phillips MD [facility] [place] [address] 01/08/2024 12:20 PM EST Office Visit Interventional Pain Center, [facility] [address] [facility] [place] [address] Anni Gomez MD [address] [place] [address] 05/24/2024 9:00 AM EDT Office Visit Cardiology [address] [place] [address] Quinn Uriostegui PA-C [address] [place] [address] 10/18/2024 12:30 PM EDT Imaging Radiology [address] [place] [address] Scheduled Procedures Name Priority Associated Diagnoses Date/Ti me COLONOSCOPY FLEXIBLE PROXIMAL DIAGNOSTIC Recall History of colon polyps Health Maintenance Due Date Last Done Comments DISCUSS TOBACCO CESSATION (REFER TO SMARTSET #9499) 1965 COVID-19 Vaccine (#1) 1970 Hepatitis B [...] this encounter Medical Devices Implanted Type Area Distributed Energy Systems Consultant Device Identifier Shelf Expiration Date Model / Serial / Lot Alfonzo Arthrodesis Nail, Left Implanted:Qty: 1 on 06/10/2012 at [place] [facility] Tissue - Non Human Left: Leg Upper ALFONZO 04/01/2016 [id number] S / / [id number] Screw Locking 1896-5587s - [id number] Implanted:Qty: 1 on 06/10/2012 at [place] [facility] Left: Leg Upper ALFONZO : TRAUMA 08/29/2013 0312-9360 S / / [id number] Screw Locking 1896-5030s - [id number] Implanted:Qty: 1 on 06/10/2012 at [place] [facility] ALFONZO : TRAUMA 04/29/2013 9736-3403 S / / [id number] Screw Threaded Lckg 5x42.5mm - [id number] Implanted:05/31 (Quantity not on file) Left: Leg Upper ALFONZO : ORTHOPAEDICS 12/31/2015 2261-4466 S / / [id number] Screw Locking 1896-5040s - [id number] Implanted:Qty: 1 on 06/10/2012 at [place] [facility] Left: Leg Upper ALFONZO : TRAUMA 07/30/2014 0953-4037 S / / [id number] Screw Compression 1825-0000s - [id number] Implanted:Qty: 1 on 06/10/2012 at [place] [facility] Left: Leg Upper ALFONZO : TRAUMA 12/30/2012 7475-9771 S / / [id number] Screw Shaft 1891-5045s - [id number] Implanted:Qty: 1 on 06/10/2012 at [place] [facility] Left: Leg Upper ALFONZO : ORTHOPAEDICS 12/31/2015 6064-0739 S / / [id number] Mesh Vicryl 12 X 12 Vkm-L - [id number] Implanted:Qty: 1 on 04/25/2020 by Dejuan Kaufman MD at [place] [facility] N/A: Abdomen JNJ : [employer] 04/29/2024 VKM-L / / [id number] Mesh Soft 02t94hr - [id number] Implanted:Qty: 1 on 04/25/2020 by Dejuan Kaufman MD at [place] [facility] N/A: Abdomen CR BARD : DAVOL [id number] 07/27/2024 [id number] / / [id number] documented as of this encounter Advance Directives [...] Directives occurred with: Not Discussed Care Teams Concrete Paver Relationship Specialty Start Date End Date Shazia Bee MD [address] [place] [address] [place] [address] PCP - General Family Medicine 10/30/23 documented as of this encounter
--- OUTSIDE RECORDS SUMMARY | 2024-04-01 20:49 | External Medical Summary | Summary of Care ---
Author Name Unknown Organization [facility] Address [address] [facility] [place] [address] Phone [phone] Care Team Providers Care Last Pattern Grader Name Role Phone Shazia Bee MD Primary Care Provide r Reason for Visit * Reason Onset Date Comments Precert Denied 11/19/2023 Lubiprostone Encounter Details Date Type Department Care Team (Late st Contact Info) Description 11/19/2023 Telephone Gastroenterology, [facility] [address] [place] [address] Sheryl Orellana CRNP [address] [place] [address] Precert Denied (Lubiprostone) Allergies No known active [...] Discontinued Wegovy 0.25 MG/0.5ML Subcutaneous Solution Auto-injector (SemaglutideTouchstone Health Management) Inject 0.25 mg under the skin [...] [place]- Keri Zaman ([phone]) [facility]- Cate Trinidad ([phone]) [facility]- Julia Villafana ([phone]) Diagnosis changed due to Research Module. Go to Snapshot for study details. Anxiety 04/26/2015 11/20/2016 Recurrent major depressive disorder 04/14/2014 06/21/2019 Adrenal insufficiency 12/12/20132016 FORCE TJR RESEARCH OTHER*[id number] 11/02/2013 03/19/2016 Overview: Patient has completed participation [...] Next Due Pneumococcal Conjugate Vacci ne, 20-valent ([id number]) 11/15/2021 Pneumococcal Polysaccharide PPV23 (Pneumovax) 06/26/2008 Seasonal [...] Telephone Encounter - Marissa Rosario CMA - 11/23/2023 11:18 AM EDT LM for pt to call back and My EpiBone message sent. * Addendum Note - Sheryl Orellana CRNP - 11/23/2023 11:15 AM EDTAddended by: SHERYL ORELLANA on: 11/23/2023 11:15 AM Modules accepted: Orders [...] Summary Attachment Precert 11/20/2023 11:22 AM Mey Perez OSA Please see scanned [...] Rx Insurance Info: optumrx [place] Reference #: [id number] * Telephone Encounter - Lashawn Armstrong LPN - 11/19/2023 4:15 PM EDT Gastro Pre-Cert Request Specialty Medication: No. Medication/Disease State Information: Medication: Lubiprostone 24 MCG Oral Capsule (Amitiza) Diagnosis (including ICD-10): GERD, K21.9 Site of care: Self-administered - route pre-cert request to [facility][note 3] Office Information: Prescriber: RAJWINDER Celeste documented in this encounter Plan of Treatment Upcoming Encounters Date Type Department Care Team (Late st Contact Info) Description 12/07/2023 10:00 AM EDT Office Visit Neurology [facility] [place] [address] [place] [address] Bridget Argueta PA-C [address] [place] [address] 12/31/2023 8:40 AM EDT Office Visit Rheumatology [place] [address] [place] [address] Isidro Phillips MD [facility] [place] [address] 01/08/2024 12:20 PM EST Office Visit Interventional Pain Center, [facility] [address] [place] [address] Anni Gomez MD [address] [place] [address] [place] [address] 05/24/2024 9:00 AM EDT Office Visit Cardiology [address] [place] [address] Quinn Uriostegui PA-C [address] [place] [address] 10/18/2024 12:30 PM EDT Imaging Radiology [address] [place] [address] Scheduled Procedures Name Priority Associated Diagnoses Date/Ti [...] this encounter Medical Devices Implanted Type Area Cereal Supervisor Device Identifier Shelf Expiration Date Model / Serial / Lot Alfonzo Arthrodesis Nail, Left Implanted:Qty: 1 on 06/10/2012 at OR [facility] Tissue - Non Human Left: Leg Upper ALFONZO 04/01/2016 1242-9340 S / / [id number] Screw Locking 1896-5035s - [id number] Implanted:Qty: 1 on 06/10/2012 at OR [facility] Left: Leg Upper ALFONZO : TRAUMA 08/29/2013 7388-7481 S / / [id number] Screw Locking 1896-5030s - [id number] Implanted:Qty: 1 on 06/10/2012 at [facility] ALFONZO : TRAUMA 04/29/2013 4382-3810 S / / [id number] Screw Threaded Lckg 5x42.5mm - [id number] Implanted:05/31 (Quantity not on file) Left: Leg Upper ALFONZO : ORTHOPAEDICS 12/31/2015 5943-3254 S / / [id number] Screw Locking 1896-5040s - [id number] Implanted:Qty: 1 on 06/10/2012 at OR [facility] Left: Leg Upper ALFONZO : TRAUMA 07/30/2014 7629-3881 S / / [id number] Screw Compression 1825-0000s - [id number] Implanted:Qty: 1 on 06/10/2012 at [facility] Left: Leg Upper ALFONZO : TRAUMA 12/30/2012 0333-3232 S / / [id number] Screw Shaft 1891-5045s - [id number] Implanted:Qty: 1 on 06/10/2012 at OR [facility] Left: Leg Upper ALFONZO : ORTHOPAEDICS 12/31/2015 1374-2132 S / / [id number] Mesh Vicryl 12 X 12 Vkm-L - [id number] Implanted:Qty: 1 on 04/25/2020 by Dejuan Kaufman MD at OR [facility] N/A: Abdomen JNJ : [employer] 04/29/2024 VKM-L / / [id number] Mesh Soft 04t34so - [id number] Implanted:Qty: 1 on 04/25/2020 by Dejuan Kaufman MD at OR [facility] N/A: Abdomen CR BARD : DAVOL [id number] 07/27/2024 [id number] / / [id number] documented as of this encounter Visit Diagnoses [...] Directives occurred with: Not Discussed Care Teams Last Pattern Grader Relationship Specialty Start Date End Date Shazia Bee MD [address] [place] [address] [place] [address] PCP - General Family Medicine 10/30/23 documented as of this encounter
--- OUTSIDE RECORDS SUMMARY | 2024-04-01 20:49 | External Medical Summary | Summary of Care ---
Author Name Unknown Organization [facility] Address [address] [facility] [place] [address] Phone [phone] Care Team Providers Care Central Control Room Operator Name Role Phone Shazia Bee MD Primary Care Provide r Reason for Visit * Reason Onset Date Comments Precert Denied 11/19/2023 Lubiprostone Encounter Details Date Type Department Care Team (Late st Contact Info) Description 11/19/2023 Telephone Gastroenterology, [facility] [address] [place] [address] Sheryl Low CRNP [address] [place] [address] Precert Denied (Lubiprostone) Allergies No known active [...] Shima [facility]- Keri Zaman ([phone]) [facility]- Cate Trinidad ([phone]) [facility]- Julia Villafana ([phone]) Diagnosis changed due to Research Module. Go to Snapshot for study details. Anxiety 04/26/2015 11/20/2016 Recurrent major depressive disorder 04/14/2014 06/21/2019 Adrenal insufficiency 12/12/20132016 FORCE TJR RESEARCH OTHER*[id number] 11/02/2013 03/19/2016 Overview: Patient has completed participation [...] Next Due Pneumococcal Conjugate Vacci ne, 20-valent (Wnurtdm15) 11/15/2021 Pneumococcal Polysaccharide PPV23 (Pneumovax) 06/26/2008 Seasonal [...] care: Self-administered - route pre-cert request to [facility] Office Information: Prescriber: RAJWINDER Celeste documented in this encounter Plan of Treatment Upcoming Encounters Date Type Department Care Team (Late st Contact Info) Description 11/25/2023 11:15 AM EDT Office Visit General Surgery, [place] [address] [place] [facility] [place] [address] Swati Pond MD [address] [place] [address] 12/07/2023 10:00 AM EDT Office Visit Neurology [facility] [place] [address] [place] [address] Bridget Argueta PA-C [address] [place] [address] 12/31/2023 8:40 AM EDT Office Visit Rheumatology [facility] [address] [place] [address] Isidro Phillips MD [address] [facility] [place] [address] 01/08/2024 12:20 PM EST Office Visit Interventional Pain Center, [facility] [address] [place] [address] Anni Gomez MD [address] [place] [address] 05/24/2024 9:00 AM EDT Office Visit Cardiology [address] [place] [address] Quinn Uriostegui PA-C [address] [place] [address] 10/18/2024 12:30 PM EDT Imaging Radiology [address] [place] [address] Scheduled Procedures Name Priority Associated Diagnoses Date/Ti me COLONOSCOPY FLEXIBLE PROXIMAL DIAGNOSTIC Recall History of colon polyps Health Maintenance Due Date Last Done Comments DISCUSS TOBACCO CESSATION (REFER TO SMARTSET #9064) 1965 COVID-19 Vaccine (#1) 1970 Hepatitis B [...] this encounter Medical Devices Implanted Type Area Information Operator Device Identifier Shelf Expiration Date Model / Serial / Lot Cal[place]a Arthrodesis Nail, Left Implanted:Qty: 1 on 06/10/2012 [place] [facility] [place] - Non Human Left: Leg Upper ALFONZO 04/01/2016 7177-4212 S / / [id number] Screw Locking 1896-5035s - [id number] Implanted:Qty: 1 on 06/10/2012 [place] [facility] Left: Leg Upper ALFONZO : TRAUMA 08/29/2013 2230-6107 S / / [id number] Screw Locking 1896-5030s - [id number] Implanted:Qty: 1 on 06/10/2012 [place] [facility] ALFONZO : TRAUMA 04/29/2013 9445-8392 S / / [id number] Screw Threaded Lckg 5x42.5mm - [id number] Implanted:05/31 (Quantity not on file) Left: Leg Upper ALFONZO : ORTHOPAEDICS 12/31/2015 1631-2243 S / / [id number] Screw Locking 1896-5040s - [id number] Implanted:Qty: 1 on 06/10/2012 at [place] [facility] [place]: Leg Upper ALFONZO : TRAUMA 07/30/2014 8877-1443 S / / [id number] Screw Compression 1825-0000s - [id number] Implanted:Qty: 1 on 06/10/2012 at [place] [facility] Left: Leg Upper ALFONZO : TRAUMA 12/30/2012 5981-8047 S / / [id number] Screw Shaft 1891-5045s - [id number] Implanted:Qty: 1 on 06/10/2012 at [place] [facility] Left: Leg Upper ALFONZO : ORTHOPAEDICS 12/31/2015 7367-6727 S / / [id number] Mesh Vicryl 12 X 12 Vkm-L - [id number] Implanted:Qty: 1 on 04/25/2020 by Dejuan Kaufman MD at [place] [facility] N/A: Abdomen JNJ : [employer] 04/29/2024 VKM-L / / [id number] Mesh Soft 13a55nr - [id number] Implanted:Qty: 1 on 04/25/2020 by Dejuan Kaufman MD at [place] [facility] N/A: Abdomen CR BARD : DAVOL [id number] 07/27/2024 [id number] / / [id number] documented as of this encounter Visit Diagnoses [...] Directives occurred with: Not Discussed Care Teams Central Control Room Operator Relationship Specialty Start Date End Date Shazia Bee MD [address] [place] [address] [place] [address] PCP - General Family Medicine 10/30/23 documented as of this encounter
--- OUTSIDE RECORDS SUMMARY | 2024-04-01 20:50 | External Medical Summary | Summary of Care ---
Author Name Unknown Organization [facility] Address [address] [facility] [place] [address] Phone [phone] Care Team Providers Care Human Factors Advisor Lead Name Role Phone Shazia Bee MD Primary Care Provide r Reason for Visit * Reason Onset Date Comments Precert Denied 11/06/2023 OZempic Encounter Details Date Type Department Care Team (Late st Contact Info) Description 11/06/2023 Telephone Nutrition & Weight Management, [facility] [address] [place] [address] Tiara Gautam PA-C [address] [place] [address] Precert Denied (OZempic) Allergies No known active allergiesdocumented as of this encounter (statuses as of 11/19/2023) Medications Medication Sig Dispensed Refills Start Date [...] nausea, epigastric pain 360 Tablet 08/28/19 24 Active Baclofen 20 MG Oral TabletIndications: [...] a week. 2 mL 5 11/19/19 24 Active rOPINIRole HCl 2 MG Oral Tablet (Requip)Indication s:RLS (restless legs syndrome) TAKE ONE TABLET BY MOUTH ONCE DAILY IN THE EVENING 90 Tablet 08/10/19 24 024 Discontinued Ozempic (0.25 or 0.5 MG/DOSE) 2 MG/3ML Solution Pen-injector (Semaglutide(0.25 or 0.5MG/DOS)) Inject 0.25mg under the skin once weekly for 4 weeks then increase to 0.5mg under the skin once weekly thereafter 9 mL 1 11/05/19 24 024 Discontinued(Re fill) documented as of this encounter (statuses as of 11/19/2023) Active Problems Problem Noted Date Diagnosed Date Food insecurity 11/09/2023 Overview: Per [employer] [...] as of this encounter (statuses as of 11/19/2023) Resolved Problems Problem Noted Date Diagnosed Date [...] PI: Dr. Shima Burns CRC- Keri Zaman ([phone]) [facility] CRC- Cate Trinidad ([phone]) [facility] CRC- Julia Villafana ([phone]) Diagnosis changed due to Research Module. Go to Snapshot for study details. Anxiety 04/26/2015 11/20/2016 Recurrent major depressive disorder 04/14/2014 06/21/2019 Adrenal insufficiency 12/12/20132016 FORCE TJR RESEARCH OTHER*[id number] 11/02/2013 03/19/2016 Overview: Patient has completed participation [...] as of this encounter (statuses as of 11/19/2023) Immunizations Name Administration Dates Next Due Pneumococcal Conjugate Vacci ne, 20-valent ([id number]) 11/15/2021 Pneumococcal Polysaccharide PPV23 (Pneumovax) 06/26/2008 Seasonal [...] EDT Script pended to [facility] * Addendum Note - Parmjit Cortez LPN [...] auth end date: N/A Rx Insurance Info: [facility] Reference #: n/a Julia Muhammad Medication Route Delivery Clerk II [facility] 11/18/23,11:58 AM . Type Date User Summary Attachment Precert 11/17/2023 8:34 AM Julia Muhammad OSA Submitted to secondary with exclusion letter. - Note: Submitted to secondary with exclusion letter. [facility] Authorization Submission Submission Information: Medication: ozempic Portal used: [facility] Insurance: [employer] Authorization #/Ray: [id number] . Type Date User Summary Attachment Precert 11/16/2023 2:59 PM Arina Malik OSA Optumrx excludes medication. - Note: Optumrx excludes medication. Message from Plan Request Reference Number: [id number]. OZEMPIC INJ 2MG/3ML is denied due to Plan Exclusion. For further questions, call . . Type Date User Summary Attachment Precert 11/09/2023 12:44 PM Julia Muhammad OSA [facility] Authorization Submission - Note: [facility] Authorization Submission Submission Information: Medication: Ozempic Portal used: [facility] Insurance: [employer] Medicare Authorization #/Ray: [id number] * Telephone Encounter - Arina Malik OSA - 11/16/2023 2:59 PM EDT Office reached out for update. Optumrx excludes medication per CMM. Message from Plan Request Reference Number: [id number]. OZEMPIC INJ 2MG/3ML is denied due to Plan Exclusion. For further questions, call . Julia may you try to submit to secondary for review? Thank you Arina Malik Scoop Machine Operator [facility] 11/16/2023,3:00 PM * Telephone Encounter - Anna Navarro, [facility] - 11/06/2023 12:37 PM EDT New or re-auth: New Patient Tracy Benavides needs a prior authorization for a medication through their OptumRX insurance. Medication: Ozempic 0.25/0.5 and 0.5/0.5 Formulation: sopn Dosage: Inject 0.25mg under the skin once weekly for 4 weeks then increase to 0.5mg under the skin once weekly thereafter ID: [id number] BIN:[id number] PCN:[id number] Phone: [phone] Target ship date is na. Thank you very much, Anna Navarro [facility] Dramatic Critic [facility] 11/06/2023,12:38 PM documented in this encounter Plan of Treatment Upcoming Encounters Date Type Department Care Team (Late st Contact Info) Description 11/25/2023 11:15 AM EDT Office Visit General Surgery, [place] [address] [place] [address] Swati Pond MD [address] [place] [address] 12/07/2023 10:00 AM EDT Office Visit Neurology [facility] [address] [facility] [place] [address] Bridget Argueta PA-C [address] [facility] [place] [address] 12/31/2023 8:40 AM EDT Office Visit Rheumatology [place] [phone] [facility] [place] [address] Isidro Phillips MD [facility] [place] [address] 01/08/2024 12:20 PM EST Office Visit Interventional Pain Center, [facility] [address] [facility] [place] [phone] Anni Gomez MD [address] [place] [address] 05/24/2024 9:00 AM EDT Office Visit Cardiology [address] [place] [address] Quinn Uriostegui PA-C [address] [place] [address] 10/18/2024 12:30 PM EDT Imaging Radiology [address] [place] [address] Scheduled Procedures Name Priority Associated Diagnoses Date/Ti me COLONOSCOPY FLEXIBLE PROXIMAL DIAGNOSTIC Recall History of colon polyps Health Maintenance Due Date Last Done Comments DISCUSS TOBACCO CESSATION (REFER TO SMARTSET #7035) 1965 COVID-19 Vaccine (#1) 1970 Hepatitis B [...] this encounter Medical Devices Implanted Type Area Head Paper Tester Device Identifier Shelf Expiration Date Model / Serial / Lot Alfonzo Arthrodesis Nail, Left Implanted:Qty: 1 on 06/10/2012 [place] [facility] - Non Human Left: Leg Upper ALFONZO 04/01/2016 7740-1721 S / / [id number] Screw Locking 1896-5035s - [id number] Implanted:Qty: 1 on 06/10/2012 at [place] [facility] Left: Leg Upper ALFONZO : TRAUMA 08/29/2013 4160-1274 S / / [id number] Screw Locking 1896-5030s - [id number] Implanted:Qty: 1 on 06/10/2012 at [place] [facility] ALFONZO : TRAUMA 04/29/2013 3824-1109 S / / [id number] Screw Threaded Lckg 5x42.5mm - [id number] Implanted:05/31 (Quantity not on file) Left: Leg Upper ALFONZO : ORTHOPAEDICS 12/31/2015 2846-5900 S / / [id number] Screw Locking 1896-5040s - [id number] Implanted:Qty: 1 on 06/10/2012 at [place] [facility] Left: Leg Upper ALFONZO : TRAUMA 07/30/2014 8920-3566 S / / [id number] Screw Compression 1825-0000s - [id number] Implanted:Qty: 1 on 06/10/2012 at [facility] Left: Leg Upper ALFONZO : TRAUMA 12/30/2012 7916-4291 S / / [id number] Screw Shaft 1891-5045s - [id number] Implanted:Qty: 1 on 06/10/2012 at [place] [facility] Left: Leg Upper ALFONZO : ORTHOPAEDICS 12/31/2015 4119-1478 S / / [id number] Mesh Vicryl 12 X 12 Vkm-L - [id number] Implanted:Qty: 1 on 04/25/2020 by Dejuan Kaufman MD at [place] [facility] N/A: Abdomen JNJ : [employer] 04/29/2024 VKM-L / / [id number] Mesh Soft 07s81qf - [id number] Implanted:Qty: 1 on 04/25/2020 by Dejuan Kaufman MD at [place] [facility] N/A: Abdomen CR BARD : DAVOL [id number] 07/27/2024 [id number] / / [id number] documented as of this encounter Advance Directives [...] Directives occurred with: Not Discussed Care Teams Human Factors Advisor Lead Relationship Specialty Start Date End Date Shazia Bee MD [address] [place] [address] [place] [address] PCP - General Family Medicine 10/30/23 documented as of this encounter
--- OUTSIDE RECORDS SUMMARY | 2024-04-01 20:50 | External Medical Summary | Summary of Care ---
Author Name Unknown Organization [facility] Address [address] [facility] [place] [address] Phone [phone] Care Team Providers Care Operations Asst Name Role Phone Shazia Bee MD Primary Care Provide r Reason for Visit * Reason Onset Date Comments Medication Problem 11/19/2023 Lubiporsotone Encounter Details Date Type Department Care Team (Late st Contact Info) Description 11/19/2023 Telephone Gastroenterology, [facility] [address] [place] [address] Sheryl Low CRNP [address] [place] [address] Medication Problem (Lubiporsotone) Allergies No known active allergiesdocumented as of [...] each evening 180 Tablet 1 08/19/2023 Active Sucralfate 1 GM Oral Tablet (Carafate) TAKE ONE TABLET BY MOUTH AT BEDTIME. may also take additionally up to 4 times daily if needed for nausea, epigastric pain 360 Tablet 08/28/2023 Active Baclofen 20 MG Oral TabletIndications:Ally mbar [...] IN THE EVENING 90 Tablet 11/10/2023 Active Lubiprostone 24 MCG Oral Capsule (Amitiza) Take 1 Capsule by mouth 2 times a day with morning and evening meals. 60 Capsule 3 11/06/2023 Active Pantoprazole Sodium 40 MG Oral Tablet Delayed Release (Protonix)Indication s:Nausea and vomiting, unspecified vomiting type Take 1 Tablet by mouth in the morning and 1 Tablet before bedtime. Do not crush, split or chew the tablet. 60 Tablet 1 11/06/2023 Active Wegovy 0.25 MG/0.5ML Subcutaneous Solution Auto-injector (Semaglutide-Weight Management) Inject 0.25 mg under the skin once a week. 2 mL 5 11/19/2023 Active documented as of this encounter (statuses [...] [facility] CRC- Keri Zaman ([phone]) [facility] CRC- Cate Trinidad ([phone]) [facility] CRC- Julia Villafana ([phone]) Diagnosis changed due to Research Module. Go to Snapshot for study details. Anxiety 04/26/2015 11/20/2016 Recurrent major depressive disorder 04/14/2014 06/21/2019 Adrenal insufficiency 12/12/20132016 FORCE TJR RESEARCH OTHER*[id number] 11/02/2013 03/19/2016 Overview: Patient has completed participation [...] Next Due Pneumococcal Conjugate Vacci ne, 20-valent ([id number]) 11/15/2021 Pneumococcal Polysaccharide PPV23 (Pneumovax) 06/26/2008 Seasonal [...] Encounter - Lashawn Armstrong LPN - 11/19/2023 4:23 PM EDT PA initiated in another encounter * Telephone Encounter - Sheryl Low CRNP - 11/19/2023 4:12 PM EDT Yes please obtain prior Auth for RAJWINDER [place] * Telephone Encounter - Tish Abbott RN - 11/19/2023 3:24 PM EDT Received letter from Medicare [employer]. Pt as give a 30 day supply of Lubiprostone 24 mcg. It is on the Quantity limits on Formulary. Linzess and Movantik also on Quantity Limit, all are Tier 3. Lactulose is Tier 2. Letter to patrick Saucedo, do you want to try for prior auth since Linzess failed or other recommendation? documented in this encounter Plan of Treatment Upcoming Encounters Date Type Department Care Team (Late st Contact Info) Description 11/25/2023 11:15 AM EDT Office Visit General Surgery, [address] [place] [address] Swati Pond MD [address] [place] [address] 12/07/2023 10:00 AM EDT Office Visit Neurology [facility] [address] [place] [address] Bridget Argueta PA-C [address] [place] [address] 12/31/2023 8:40 AM EDT Office Visit Rheumatology [facility] [address] [place] [address] Isidro Phillips MD [address] [facility] [place] [address] 01/08/2024 12:20 PM EST Office Visit Interventional Pain Center, [facility] 132 [facility] [place] [address] Anni Gomez MD [address] [place] [address] 05/24/2024 9:00 AM EDT Office Visit Cardiology [address] [place] [address] Quinn Uriostegui PAAlexsander 132 [facility] [place] [address] 10/18/2024 12:30 PM EDT Imaging Radiology [address] [place] [address] Scheduled Procedures Name Priority Associated Diagnoses Date/Ti me COLONOSCOPY FLEXIBLE PROXIMAL DIAGNOSTIC Recall History of colon polyps Health Maintenance Due Date Last Done Comments DISCUSS TOBACCO CESSATION (REFER TO SMARTSET #6576) 1965 COVID-19 Vaccine (#1) 1970 Hepatitis B [...] this encounter Medical Devices Implanted Type Area Fiberglass Auto Body Repairer Device Identifier Shelf Expiration Date Model / Serial / Lot Alfonzo Arthrodesis Nail, Left Implanted:Qty: 1 on 06/10[place]2012 [place] [facility] [place] - Non Human Left: Leg Upper ALFONZO 04/01/2016 1832-2346 S / / [id number] Screw Locking 1896-5035s - [id number] Implanted:Qty: 1 on 06/10/2012 [place] [facility] [place]: Leg Upper ALFONZO : TRAUMA 08/29/2013 9013-9544 S / / [id number] Screw Locking 1896-5030s - [id number] Implanted:Qty: 1 on 06/10/2012 [place] [facility] ALFONZO : TRAUMA 04/29/2013 5317-8184 S / / [id number] Screw Threaded Lckg 5x42.5mm - [id number] Implanted:05/31 (Quantity not on file) Left: Leg Upper ALFONZO : ORTHOPAEDICS 12/31/2015 3766-8222 S / / [id number] Screw Locking 1896-5040s - [id number] Implanted:Qty: 1 on 06/10/2012 [place] [facility] Left: Leg Upper ALFONZO : TRAUMA 07/30/2014 9986-2730 S / / [id number] Screw Compression 1825-0000s - [id number] Implanted:Qty: 1 on 06/10/2012 [place] [facility] Left: Leg Upper ALFONZO : TRAUMA 12/30/2012 2759-3384 S / / [id number] Screw Shaft 1891-5045s - [id number] Implanted:Qty: 1 on 06/10/2012 [place] [facility] Left: Leg Upper ALFONZO : ORTHOPAEDICS 12/31/201518902230-8602 S / / [id number] Mesh Vicryl 12 X 12 Vkm-L - [id number] Implanted:Qty: 1 on 04/25/2020 by Dejuan Kaufman MD [place] [facility] N/A: Abdomen JNJ : [employer] 04/29/2024 VKM-L / / [id number] Mesh Soft 04q44gi - [id number] Implanted:Qty: 1 on 04/25/2020 by Dejuan Kaufman MD [place] [facility] N/A: Abdomen CR BARD : DAVOL [id number] 07/27/2024 [id number] / / [id number] documented as of this encounter Advance Directives [...] Directives occurred with: Not Discussed Care Teams Operations Asst Relationship Specialty Start Date End Date Shazia Bee MD [address] [place] [address] [place] [address] PCP - General Family Medicine 10/30/23 documented as of this encounter
--- OUTSIDE RECORDS SUMMARY | 2024-04-01 20:50 | External Medical Summary | Summary of Care ---
Author Name Unknown Organization [facility] Address [address] [facility] [place] [address] Phone [phone] Care Team Providers Care Tapping Machine Operator Name Role Phone Shazia Bee MD Primary Care Provide r Reason for Visit * Reason Onset Date Comments Precert Denied 11/06/2023 OZempic Encounter Details Date Type Department Care Team (Late st Contact Info) Description 11/06/2023 Telephone Nutrition & Weight Management, [facility] [address] [place] [address] Tiara Gautam PA-C [address] [place] [address] Precert Denied (OZempic) Allergies No known active [...] PI: Dr. Shima Burns CRC- Keri Zaman ([phone]) [facility] CRC- Cate Trinidad ([phone]) [facility] CRC- Julia Villafana ([phone]) Diagnosis changed due to Research Module. Go to Snapshot for study details. Anxiety 04/26/2015 11/20/2016 Recurrent major depressive disorder 04/14/2014 06/21/2019 Adrenal insufficiency 12/12/20132016 FORCE TJR RESEARCH OTHER*[id number] 11/02/2013 03/19/2016 Overview: Patient has completed participation [...] Next Due Pneumococcal Conjugate Vacci ne, 20-valent (Zfaevok05) 11/15/2021 Pneumococcal Polysaccharide PPV23 (Pneumovax) 06/26/2008 Seasonal [...] encounter Miscellaneous Notes * Addendum Note - Parmjit Cortez LPN [...] auth end date: N/A Rx Insurance Info: [facility] Reference #: n/a Julia Muhammad Medication Plisse Machine Operator II [facility] 11/18/23,11:58 AM . Type Date User Summary Attachment Precert 11/17/2023 8:34 AM Julia Muhammad OSA Submitted to secondary with exclusion letter. - Note: Submitted to secondary with exclusion letter. [facility] Authorization Submission Submission Information: Medication: ozempic Portal used: [facility] Insurance: [employer] Authorization #/Ray: [id number] . Type Date User Summary Attachment Precert 11/16/2023 2:59 PM Arina Malik OSA Optumrx excludes medication. - Note: Optumrx excludes medication. Message from Plan Request Reference Number: [id number]. OZEMPIC INJ 2MG/3ML is denied due to Plan Exclusion. For further questions, call . . Type Date User Summary Attachment Precert 11/09/2023 12:44 PM Julia Muhammad OSA [facility] Authorization Submission - Note: [facility] Authorization Submission Submission Information: Medication: Ozempic Portal used: [facility] Insurance: OptumRX Medicare Authorization #/Ray: [id number] * Telephone Encounter - Arina Malik OSA - 11/16/2023 2:59 PM EDT Office reached out for update. Optumrx excludes medication per [facility]. Message from Plan Request Reference Number: [id number]. OZEMPIC INJ 2MG/3ML is denied due to Plan Exclusion. For further questions, call . Julia may you try to submit to [facility] for review? Thank you Arina Malik Assembler Fluorescent Lights [facility] 11/16/2023,3:00 PM * Telephone Encounter - Anna Navarro [facility] - 11/06/2023 12:37 PM EDT New or re-auth: New Patient Tracy Benavides needs a prior authorization for a medication through their OptumRX insurance. Medication: Ozempic 0.25/0.5 and 0.5/0.5 Formulation: sopn Dosage: Inject 0.25mg under the skin once weekly for 4 weeks then increase to 0.5mg under the skin once weekly thereafter ID: [id number] BIN:[id number] PCN:[id number] Phone: [phone] Target ship date is na. Thank you very much, Anna Navarro [facility] Counseling Case Manager [facility] 11/06/2023,12:38 PM documented in this encounter Plan of Treatment Upcoming Encounters Date Type Department Care Team (Late st Contact Info) Description 11/25/2023 11:15 AM EDT Office Visit General Surgery, [place] [address] [place] [address] Swati Pond MD [address] [place], [place] [address] 12/07/2023 10:00 AM EDT Office Visit Neurology [facility] [address] [facility] [place] [address] Bridget Argueta PA-C [address] [facility] [place] [address] 12/31/2023 8:40 AM EDT Office Visit Rheumatology [address] [place] [address] Isidro Phillips MD [address] [place] [address] [place] [address] 01/08/2024 12:20 PM EST Office Visit Interventional Pain Center, [facility] [address] [facility] [place] [address] Anni Gomez MD [address] [place] [address] 05/24/2024 9:00 AM EDT Office Visit Cardiology [address] [place] [address] Quinn Uriostegui PA-C [address] [place] [phone] 10/18/2024 12:30 PM EDT Imaging Radiology [address] [place] [address] Scheduled Procedures Name Priority Associated Diagnoses Date/Ti me COLONOSCOPY FLEXIBLE PROXIMAL DIAGNOSTIC Recall History of colon polyps Health Maintenance Due Date Last Done Comments DISCUSS TOBACCO CESSATION (REFER TO SMARTSET #9527) 1965 COVID-19 Vaccine (#1) 1970 Hepatitis B [...] this encounter Medical Devices Implanted Type Area Java Oracle Developer Device Identifier Shelf Expiration Date Model / Serial / Lot Alfonzo Arthrodesis Nail, Left Implanted:Qty: 1 on 06/10/2012 at [place] [facility] Tissue - Non Human Left: Leg Upper ALFONZO 04/01/2016 9666-7425 S / / [id number] Screw Locking 1896-5035s - [id number] Implanted:Qty: 1 on 06/10/2012 at OR [facility] Left: Leg Upper ALFONZO : TRAUMA 08/29/2013 1074-7561 S / / [id number] Screw Locking 1896-5030s - [id number] Implanted:Qty: 1 on 06/10/2012 at OR [facility] ALFONZO : TRAUMA 04/29/2013 8473-9897 S / / [id number] Screw Threaded Lckg 5x42.5mm - [id number] Implanted:05/31 (Quantity not on file) Left: Leg Upper ALFONZO : ORTHOPAEDICS 12/31/2015 8855-7286 S / / [id number] Screw Locking 1896-5040s - [id number] Implanted:Qty: 1 on 06/10/2012 at [place] [facility] Left: Leg Upper ALFONZO : TRAUMA 07/30/2014 8760-9507 S / / [id number] Screw Compression 1825-0000s - [id number] Implanted:Qty: 1 on 06/10/2012 at OR [facility] Left: Leg Upper ALFONZO : TRAUMA 12/30/2012 1953-5947 S / / [id number] Screw Shaft 1891-5045s - [id number] Implanted:Qty: 1 on 06/10/2012 at [place] [facility] Left: Leg Upper ALFONZO : ORTHOPAEDICS 12/31/2015 6097-8314 S / / [id number] Mesh Vicryl 12 X 12 Vkm-L - [id number] Implanted:Qty: 1 on 04/25/2020 by Dejuan Kaufman MD at OR [facility] N/A: Abdomen JNJ : [employer] 04/29/2024 VKM-L / / [id number] Mesh Soft 58u53lq - [id number] Implanted:Qty: 1 on 04/25/2020 by Dejuan Kaufman MD at OR [facility] N/A: Abdomen CR BARD : DAVOL [id number] 07/27/2024 [id number] / / [id number] documented as of this encounter Advance Directives [...] Directives occurred with: Not Discussed Care Teams Tapping Machine Operator Relationship Specialty Start Date End Date Shazia Bee MD [address] [place] [address] [place] [address] PCP - General Family Medicine 10/30/23 documented as of this encounter
--- OUTSIDE RECORDS SUMMARY | 2024-04-01 20:50 | External Medical Summary | Summary of Care ---
Author Name Unknown Organization [facility] Address [address] [facility] [place] [address] Phone [phone] Care Team Providers Care Cable Tool Driller Name Role Phone Shazia Bee MD Primary Care Provide r Reason for Visit * Reason Onset Date Comments Precert Denied 11/06/2023 OZempic Encounter Details Date Type Department Care Team (Late st Contact Info) Description 11/06/2023 Telephone Nutrition & Weight Management, [facility] [address] [place] [address] Tiara Gautam PA-C [address] [place] [address] Precert Denied (OZempic) Allergies No known active [...] PI: Dr. Shima Burns CRC- Keri Zaman ([phone]) [facility] CRC- Cate Trinidad ([phone]) [facility] CRC- Julia Villafana ([phone]) Diagnosis changed due to Research Module. Go to Snapshot for study details. Anxiety 04/26/2015 11/20/2016 Recurrent major depressive disorder 04/14/2014 06/21/2019 Adrenal insufficiency 12/12/20132016 FORCE TJR RESEARCH OTHER*[id number] 11/02/2013 03/19/2016 Overview: Patient has completed participation [...] Next Due Pneumococcal Conjugate Vacci ne, 20-valent (Nsllrql96) 11/15/2021 Pneumococcal Polysaccharide PPV23 (Pneumovax) 06/26/2008 Seasonal [...] auth end date: N/A Rx Insurance Info: [facility] Reference #: n/a Julia Muhammad Medication Manager Contracting II [facility] 11/18/23,11:58 AM . Type Date User Summary Attachment Precert 11/17/2023 8:34 AM Julia Muhammad OSA Submitted to secondary with exclusion letter. - Note: Submitted to secondary with exclusion letter. [facility] Authorization Submission Submission Information: Medication: ozempic Portal used: [facility] Insurance: [employer] Authorization #/Ray: [id number] . Type Date User Summary Attachment Precert 11/16/2023 2:59 PM Arina Malik OSA Optumrx excludes medication. - Note: Optumrx excludes medication. Message from Plan Request Reference Number: [id number]. OZEMPIC INJ 2MG/3ML is denied due to Plan Exclusion. For further questions, call . . Type Date User Summary Attachment Precert 11/09/2023 12:44 PM Julia Muhammad OSA [facility] Authorization Submission - Note: [facility] Authorization Submission Submission Information: Medication: Ozempic Portal used: [facility] Insurance: OptumRX Medicare Authorization #/Ray: [id number] * Telephone Encounter - Arina Malik OSA - 11/16/2023 2:59 PM EDT Office reached out for update. Optumrx excludes medication per [facility]. Message from Plan Request Reference Number: [id number]. OZEMPIC INJ 2MG/3ML is denied due to Plan Exclusion. For further questions, call . Julia may you try to submit to [facility] for review? Thank you Arina Malik Antisqueak Worker [facility] 11/16/2023,3:00 PM * Telephone Encounter - Anna Navarro [facility] - 11/06/2023 12:37 PM EDT New or re-auth: New Patient Tracy Benavides needs a prior authorization for a medication through their OptumRX insurance. Medication: Ozempic 0.25/0.5 and 0.5/0.5 Formulation: sopn Dosage: Inject 0.25mg under the skin once weekly for 4 weeks then increase to 0.5mg under the skin once weekly thereafter ID: [id number] BIN:[id number] PCN:[id number] Phone: [phone] Target ship date is na. Thank you very much, Anna Navarro [facility] Supervisor Carbon [employer] [facility] 11/06/2023,12:38 PM documented in this encounter Plan of Treatment Upcoming Encounters Date Type Department Care Team (Late st Contact Info) Description 11/25/2023 11:15 AM EDT Office Visit General Surgery, [place] [address] [place] [address] Swati Pond MD [address] [place], [place] [id number] 12/07/2023 10:00 AM EDT Office Visit Neurology [facility] [address] [place] [address] Bridget Argueta PA-C [address] [facility] [place] [address] 12/31/2023 8:40 AM EDT Office Visit Rheumatology [address] [place] [address] Isidro Phillips MD [address] [place] [address] [place] [address] 01/08/2024 12:20 PM EST Office Visit Interventional Pain Center, [facility] [address] [facility] [place] [address] Anni Gomez MD [address] [place] [address] 05/24/2024 9:00 AM EDT Office Visit Cardiology [address] [place] [address] Quinn Uriostegui PA-C [address] [place] [phone] 10/18/2024 12:30 PM EDT Imaging Radiology [address] [place] [address] Scheduled Procedures Name Priority Associated Diagnoses Date/Ti me COLONOSCOPY FLEXIBLE PROXIMAL DIAGNOSTIC Recall History of colon polyps Health Maintenance Due Date Last Done Comments DISCUSS TOBACCO CESSATION (REFER TO SMARTSET #2121) 1965 COVID-19 Vaccine (#1) 1970 Hepatitis B [...] this encounter Medical Devices Implanted Type Area Cornice Upholsterer Device Identifier Shelf Expiration Date Model / Serial / Lot Alfonzo Arthrodesis Nail, Left Im[place]ed:Q[place] 1 [place] [facility] [place] - Non Human Left: Leg Upper ALFONZO 04/01/2016 7614-8413 S / / [id number] Screw Locking 1896-5035s - [id number] Implanted:Qty: 1 [place]10[place] [facility] [place]: Leg Upper ALFONZO : TRAUMA 08/29/2013 5690-4349 S / / [id number] Screw Locking 1896-5030s - [id number] Implanted:Qty: 1 [place]10[place] [facility] [place]FONZO : TRAUMA 04/29/2013 5794-0789 S / / [id number] Screw Threaded Lckg 5x42.5mm - [id number] Implanted:05/31 (Quantity not on file) Left: Leg Upper ALFONZO : ORTHOPAEDICS 12/31/2015 4146-2896 S / / [id number] Screw Locking 1896-5040s - [id number] Implanted:Qty: 1 [place]10/[place] [facility] [place]: Leg Upper ALFONZO : TRAUMA 07/30/2014 7835-9322 S / / [id number] Screw Compression 1825-0000s - [id number] Implanted:Qty: 1 [place]10[place] [facility] [place]: Leg Upper ALFONZO : TRAUMA 12/30/2012 4249-6412 S / / [id number] Screw Shaft 1891-5045s - [id number] Implanted:Qty: 1 [place]10/[place] [facility] [place]: Leg Upper ALFONZO : ORTHOPAEDICS 12/31/2015 9223-5846 S / / [id number] Mesh Vicryl 12 X 12 Vkm-L - [id number] Implanted:Qty: 1 on 04/25/2020 by Dejuan Kaufman [place] [facility] [place]/A: Abdomen JNJ : [employer] 04/29/2024 VKM-L / / [id number] Mesh Soft 33i83hq - [id number] Implanted:Qty: 1 on 04/25/2020 by Dejuan Kaufman [place] [facility] [place] N/A: Abdomen CR BARD : DAVOL [id number] 07/27/2024 [id number] / / [id number] documented as of this encounter Advance Directives [...] Directives occurred with: Not Discussed Care Teams Cable Tool Driller Relationship Specialty Start Date End Date Shazia Bee MD [address] [place] [address] [place] [address] PCP - General Family Medicine 10/30/23 documented as of this encounter
--- OUTSIDE RECORDS SUMMARY | 2024-04-01 20:50 | External Medical Summary | Summary of Care ---
Author Name Unknown Organization [facility] Address [address] [facility] [place] [address] Phone [phone] Care Team Providers Care Clearing Supervisor Name Role Phone Shazia Bee MD Primary Care Provide r Reason for Visit * Reason Onset Date Comments Precert Denied 11/06/2023 OZempic Encounter Details Date Type Department Care Team (Late st Contact Info) Description 11/06/2023 Telephone Nutrition & Weight Management, [facility] [address] [place] [address] Tiara Gautam PA-C [address] [place] [address] Precert Denied (OZempic) Allergies No known active [...] PI: Dr. Shima Burns CRC- Keri Zaman ([phone]) [facility] CRC- Cate Trinidad ([phone]) [facility] CRC- Julia Villafana ([phone]) Diagnosis changed due to Research Module. Go to Snapshot for study details. Anxiety 04/26/2015 11/20/2016 Recurrent major depressive disorder 04/14/2014 06/21/2019 Adrenal insufficiency 12/12/20132016 FORCE TJR RESEARCH OTHER*[id number] 11/02/2013 03/19/2016 Overview: Patient has completed participation [...] Next Due Pneumococcal Conjugate Vacci ne, 20-valent (Veqtjhy49) 11/15/2021 Pneumococcal Polysaccharide PPV23 (Pneumovax) 06/26/2008 Seasonal [...] auth end date: N/A Rx Insurance Info: [facility] Reference #: n/a Julia Muhammad Medication Financial Aid Counselor II [facility] 11/18/23,11:58 AM . Type Date User Summary Attachment Precert 11/17/2023 8:34 AM Julia Muhammad OSA Submitted to secondary with exclusion letter. - Note: Submitted to secondary with exclusion letter. [facility] Authorization Submission Submission Information: Medication: ozempic Portal [facility] Insurance: [employer] Authorization #/Ray: [id number] . Type Date User Summary Attachment Precert 11/16/2023 2:59 PM Arina Malik OSA Optumrx excludes medication. - Note: Optumrx excludes medication. Message from Plan Request Reference Number: [id number]. OZEMPIC INJ 2MG/3ML is denied due to Plan Exclusion. For further questions, call . . Type Date User Summary Attachment Precert 11/09/2023 12:44 PM Julia Muhammad OSA [facility] Authorization Submission - Note: [facility] Authorization Submission Submission Information: Medication: Ozempic Portal [facility]: [facility] Insurance: OptumRX Medicare Authorization #/Ray: [id number] * Telephone Encounter - Arina Malik OSA - 11/16/2023 2:59 PM EDT Office reached out for update. Optumrx excludes medication per [facility]. Message from Plan Request Reference Number: [id number]. OZEMPIC INJ 2MG/3ML is denied due to Plan Exclusion. For further questions, call . Julia may you try to submit to [facility] for review? Thank you Arina Malik Assistant Education Director [facility] 11/16/2023,3:00 PM * Telephone Encounter - Anna Navarro [facility] - 11/06/2023 12:37 PM EDT New or re-auth: New Patient Tracy Benavides needs a prior authorization for a medication through their OptumRX insurance. Medication: Ozempic 0.25/0.5 and 0.5/0.5 Formulation: sopn Dosage: Inject 0.25mg under the skin once weekly for 4 weeks then increase to 0.5mg under the skin once weekly thereafter ID: [id number] BIN:[id number] PCN:[id number] Phone: [phone] Target ship date is na. Thank you very much, Anna Navarro [facility] Bonding Agent [facility] 11/06/2023,12:38 PM documented in this encounter Plan of Treatment Upcoming Encounters Date Type Department Care Team (Late st Contact Info) Description 11/25/2023 11:15 AM EDT Office Visit General Surgery, [place] [address] [place] [address] Swati Pond MD [address] [place], [place] [address] 12/07/2023 10:00 AM EDT Office Visit Neurology [facility] [address] [facility] [place] [address] Bridget Argueta PA-C [address] [facility] [place] [address] 12/31/2023 8:40 AM EDT Office Visit Rheumatology [address] [place] [address] Isidro Phillips MD [address] [place] [address] [place] [address] 01/08/2024 12:20 PM EST Office Visit Interventional Pain Center, [facility] [address] [facility] [place] [address] Anni Gomez MD 16 [place] [address] 05/24/2024 9:00 AM EDT Office Visit Cardiology [address] [place] [address] Quinn Uriostegui PA-C [address] [place] [phone] 10/18/2024 12:30 PM EDT Imaging Radiology [address] [place] [address] Scheduled Procedures Name Priority Associated Diagnoses Date/Ti me COLONOSCOPY FLEXIBLE PROXIMAL DIAGNOSTIC Recall History of colon polyps Health Maintenance Due Date Last Done Comments DISCUSS TOBACCO CESSATION (REFER TO SMARTSET #5477) 1965 COVID-19 Vaccine (#1) 1970 Hepatitis B [...] this encounter Medical Devices Implanted Type Area Emergency Response Officer Device Identifier Shelf Expiration Date Model / Serial / Lot Alfonzo Arthrodesis Nail, Left Implanted:Qty: 1 on 06/10/2012 at [place] [facility] [place] Tissue - Non Human Left: Leg Upper ALFONZO 04/01/2016 4210-6922 S / / [id number] Screw Locking 1896-5035s - [id number] Implanted:Qty: 1 on 06/10/2012 at OR [facility] Left: Leg Upper ALFONZO : TRAUMA 08/29/2013 0639-5718 S / / [id number] Screw Locking 1896-5030s - [id number] Implanted:Qty: 1 on 06/10/2012 at OR [facility] ALFONZO : TRAUMA 04/29/2013 2751-0942 S / / [id number] Screw Threaded Lckg 5x42.5mm - [id number] Implanted:05/31 (Quantity not on file) Left: Leg Upper ALFONZO : ORTHOPAEDICS 12/31/2015 1670-5418 S / / [id number] Screw Locking 1896-5040s - [id number] Implanted:Qty: 1 on 06/10/2012 at [place] [facility] Left: Leg Upper ALFONZO : TRAUMA 07/30/2014 9657-3181 S / / [id number] Screw Compression 1825-0000s - [id number] Implanted:Qty: 1 on 06/10/2012 at [place] [facility] Left: Leg Upper ALFONZO : TRAUMA 12/30/2012 2258-8801 S / / [id number] Screw Shaft 1891-5045s - [id number] Implanted:Qty: 1 on 06/10/2012 at OR [facility] Left: Leg Upper ALFONZO : ORTHOPAEDICS 12/31/2015 7564-8673 S / / [id number] Mesh Vicryl 12 X 12 Vkm-L - [id number] Implanted:Qty: 1 on 04/25/2020 by Dejuan Kaufman MD at OR [facility] N/A: Abdomen JNJ : [employer] 04/29/2024 VKM-L / / [id number] Mesh Soft 44i30ox - [id number] Implanted:Qty: 1 on 04/25/2020 by Dejuan Kaufman MD at [place] [facility] N/A: Abdomen CR BARD : DAVOL [id number] 07/27/2024 [id number] / / [id number] documented as of this encounter Advance Directives [...] Directives occurred with: Not Discussed Care Teams Clearing Supervisor Relationship Specialty Start Date End Date Shazia Bee MD [address] [place] [address] [place] [address] PCP - General Family Medicine 10/30/23 documented as of this encounter
--- OUTSIDE RECORDS SUMMARY | 2024-04-01 20:50 | External Medical Summary | Summary of Care ---
Author Name Unknown Organization [facility] Address [address] [facility] [place] [address] Phone [phone] Care Team Providers Care Sagger Soak Name Role Phone Shazia Bee MD Primary Care Provide r Reason for Visit * Reason Onset Date Comments Precert Denied 11/06/2023 OZempic Encounter Details Date Type Department Care Team (Late st Contact Info) Description 11/06/2023 Telephone Nutrition & Weight Management, [facility] [address] [place] [address] Tiara Gautam PA-C [address] [place] [address] Precert Denied (OZempic) Allergies No known active [...] [facility]- Keri Zaman ([phone]) [facility] CRC- Cate Trinidad ([phone]) [facility] CRC- Julia Villafana ([phone]) Diagnosis changed due to Research Module. Go to Snapshot for study details. Anxiety 04/26/2015 11/20/2016 Recurrent major depressive disorder 04/14/2014 06/21/2019 Adrenal insufficiency 12/12/20132016 FORCE TJR RESEARCH OTHER*[id number] 11/02/2013 03/19/2016 Overview: Patient has completed participation [...] Next Due Pneumococcal Conjugate Vacci ne, 20-valent (Aiuocoq80) 11/15/2021 Pneumococcal Polysaccharide PPV23 (Pneumovax) 06/26/2008 Seasonal [...] 11/19/2023 2:46 PM EDT Script pended to [facility] * Addendum Note - Parmjit Cortez LPN [...] auth end date: N/A Rx Insurance Info: [employer] [place] Reference #: n/a Julia Muhammad Medication Leave Coordinator II [facility] 11/18/23,11:58 AM . Type Date User Summary Attachment ert 11/17/2023 8:34 AM Julia Muhammad OSA Submitted to secondary with exclusion letter. - Note: Submitted to secondary with exclusion letter. [facility] Authorization Submission Submission Information: Medication: ozempic Portal used: [facility] Insurance: [employer] Authorization #/Ray: [id number] . Type Date User Summary Attachment ert 11/16/2023 2:59 PM Arina Malik OSA Optumrx excludes medication. - Note: Optumrx excludes medication. Message from Plan Request Reference Number: [id number]. OZEMPIC INJ 2MG/3ML is denied due to Plan Exclusion. For further questions, call . . Type Date User Summary Attachment ert 11/09/2023 12:44 PM Julia Muhammad OSA [facility] Authorization Submission - Note: [facility] Authorization Submission Submission Information: Medication: Ozempic Portal used: [facility] Insurance: OptumRX Medicare Authorization #/Ray: [id number] * Telephone Encounter - Arina Malik OSA - 11/16/2023 2:59 PM EDT Office reached out for update. Optumrx excludes medication per [facility]. Message from Plan Request Reference Number: [id number]. OZEMPIC INJ 2MG/3ML is denied due to Plan Exclusion. For further questions, call . Julia may you try to submit to secondary for review? Thank you Arina Malik Keno Writer / Runner [facility] 11/16/2023,3:00 PM * Telephone Encounter - Anna Navarro [facility] - 11/06/2023 12:37 PM EDT New or re-auth: New Patient Tracy Benavides needs a prior authorization for a medication through their OptumRX insurance. Medication: Ozempic 0.25/0.5 and 0.5/0.5 Formulation: sopn Dosage: Inject 0.25mg under the skin once weekly for 4 weeks then increase to 0.5mg under the skin once weekly thereafter ID: [id number] BIN:[id number] PCN:9999 Phone: [phone] Target ship date is na. Thank you very much, Anna Navarro [facility] Utilization Review Specialist [facility] 11/06/2023,12:38 PM documented in this encounter Plan of Treatment Upcoming Encounters Date Type Department Care Team (Late st Contact Info) Description 11/25/2023 11:15 AM EDT Office Visit General Surgery, [place] [address] [place] [address] Swati Pond MD [address] [place] [address] 12/07/2023 10:00 AM EDT Office Visit Neurology [employer] [address] [place] [address] Bridget Argueta PA-C [address] [place] [address] 12/31/2023 8:40 AM EDT Office Visit Rheumatology [facility] [address] [facility] [place] [address] Isidro Phillips MD [address] [place] [address] 01/08/2024 12:20 PM EST Office Visit Interventional Pain Center, [facility] [address] [facility] [place] [address] Anni Gomez MD 16 [place] [address] 05/24/2024 9:00 AM EDT Office Visit Cardiology [address] [place] [address] Quinn Uriostegui PA-C [address] [place] [address] 10/18/2024 12:30 PM EDT Imaging Radiology [address] [place] [address] Scheduled Procedures Name Priority Associated Diagnoses Date/Ti me COLONOSCOPY FLEXIBLE PROXIMAL DIAGNOSTIC Recall History of colon polyps Health Maintenance Due Date Last Done Comments DISCUSS TOBACCO CESSATION (REFER TO SMARTSET #1731) 1965 COVID-19 Vaccine (#1) 1970 Hepatitis B [...] this encounter Medical Devices Implanted Type Area Attending Pathologist Device Identifier Shelf Expiration Date Model / Serial / Lot Alfonzo Arthrodesis Nail, Left Implanted:Qty: 1 [place]10[place] [facility] - Non Human Left: Leg Upper ALFONZO 04/01/2016 5486-9520 S / / [id number] Screw Locking 1896-5035s - [id number] Implanted:Qty: 1 [place] 06/10/2012 [place] [facility]: Leg Upper ALFONZO : TRAUMA 08/29/2013 4225-6054 S / / [id number] Screw Locking 1896-5030s - [id number] Implanted:Qty: 1 [place]/10/2012 [place] [facility]FONZO : TRAUMA 04/29/2013 9166-0977 S / / [id number] Screw Threaded Lckg 5x42.5mm - [id number] Implanted:05/31 (Quantity not on file) Left: Leg Upper ALFONZO : ORTHOPAEDICS 12/31/2015 9014-4765 S / / [id number] Screw Locking 1896-5040s - [id number] Implanted:Qty: 1 on 06/10/2012 [place] [facility]: Leg Upper ALFONZO : TRAUMA 07/30/2014 7986-1615 S / / [id number] Screw Compression 1825-0000s - [id number] Implanted:Qty: 1 on 06/10/2012 [place] [facility]: Leg Upper ALFONZO : TRAUMA 12/30/2012 9071-8470 S / / [id number] Screw Shaft 1891-5045s - [id number] Implanted:Qty: 1 on 06/10/2012 [place] [facility]: Leg Upper ALFONZO : ORTHOPAEDICS 12/31/2015 7651-0193 S / / [id number] Mesh Vicryl 12 X 12 Vkm-L - [id number] Implanted:Qty: 1 on 04/25/2020 by Dejuan Kaufman [place] [facility] N/A: Abdomen JNJ : [employer] 04/29/2024 VKM-L / / [id number] Mesh Soft 11o38yh - [id number] Implanted:Qty: 1 on 04/25/2020 by Dejuan Kaufman MD [place] [facility] N/A: Abdomen CR BARD : DAVOL [id number] 07/27/2024 [id number] / / [id number] documented as of this encounter Advance Directives [...] Directives occurred with: Not Discussed Care Teams Sagger Soak Relationship Specialty Start Date End Date Shazia Bee MD [address] [place] [address] [place] [address] PCP - General Family Medicine 10/30/23 documented as of this encounter
--- OUTSIDE RECORDS SUMMARY | 2024-04-01 20:50 | External Medical Summary | Summary of Care ---
Author Name Unknown Organization [facility] Address [address] [facility] [place] [address] Phone [phone] Care Team Providers Care Recovery Rn Name Role Phone Shazia Bee MD Primary Care Provide r Reason for Visit * Reason Onset Date Comments Precert Denied 11/06/2023 OZempic Encounter Details Date Type Department Care Team (Late st Contact Info) Description 11/06/2023 Telephone Nutrition & Weight Management, [facility] [place] [address] [place] [address] Tiara Gautam PA-C [address] [place] [address] Precert Denied (OZempic) Allergies No known active [...] PI: Dr. Shima Burns CRC- Keri Zaman ([phone]) [facility] CRC- Cate Trinidad ([phone]) [facility] CRC- Julia Villafana ([phone]) Diagnosis changed due to Research Module. Go to Snapshot for study details. Anxiety 04/26/2015 11/20/2016 Recurrent major depressive disorder 04/14/2014 06/21/2019 Adrenal insufficiency 12/12/20132016 FORCE TJR RESEARCH OTHER*[id number] 11/02/2013 03/19/2016 Overview: Patient has completed participation [...] Next Due Pneumococcal Conjugate Vacci ne, 20-valent ([id number]) 11/15/2021 Pneumococcal Polysaccharide PPV23 (Pneumovax) 06/26/2008 Seasonal [...] auth end date: N/A Rx Insurance Info: [facility] Reference #: n/a Julia Muhammad Medication Coin Machine Assembler II [facility] 11/18/23,11:58 AM . Type Date User Summary Attachment Precert 11/17/2023 8:34 AM Julia Muhammad OSA Submitted to secondary with exclusion letter. - Note: Submitted to secondary with exclusion letter. [facility] Authorization Submission Submission Information: Medication: ozempic Portal used: [facility] Insurance: [employer] Authorization #/Ray: [id number] . Type Date User Summary Attachment Precert 11/16/2023 2:59 PM Arina Malik OSA Optumrx excludes medication. - Note: Optumrx excludes medication. Message from Plan Request Reference Number: [id number]. OZEMPIC INJ 2MG/3ML is denied due to Plan Exclusion. For further questions, call . . Type Date User Summary Attachment Precert 11/09/2023 12:44 PM Julia Muhammad OSA [facility] Authorization Submission - Note: [facility] Authorization Submission Submission Information: Medication: Ozempic Portal used: [facility] Insurance: [employer] Medicare Authorization #/Ray: [id number] * Telephone Encounter - Arina Malik OSA - 11/16/2023 2:59 PM EDT Office reached out for update. [facility] excludes medication per [facility]. Message from Plan Request Reference Number: [id number]. OZEMPIC INJ 2MG/3ML is denied due to Plan Exclusion. For further questions, call . Julia may you try to submit to [facility] for review? Thank you Arina Malik Conveyor Belt Installer [facility] 11/16/2023,3:00 PM * Telephone Encounter - Anna Navarro [facility] - 11/06/2023 12:37 PM EDT New or re-auth: New Patient Tracy Benavides needs a prior authorization for a medication through their [employer] insurance. Medication: Ozempic 0.25/0.5 and 0.5/0.5 Formulation: sopn Dosage: Inject 0.25mg under the skin once weekly for 4 weeks then increase to 0.5mg under the skin once weekly thereafter ID: [id number] [id number] PCN:[id number] Phone: [phone] Target ship date is na. Thank you very much, Anna Navarro [facility] Cad Design Engineer [facility] 11/06/2023,12:38 PM documented in this encounter Plan of Treatment Upcoming Encounters Date Type Department Care Team (Late st Contact Info) Description 11/25/2023 11:15 AM EDT Office Visit General Surgery, [place] [address] [place] [address] Swati Pond MD [address] [place], [place] [id number] 12/07/2023 10:00 AM EDT Office Visit Neurology [facility] [address] [place] [address] Bridget Argueta PA-C [address] [facility] [place] [address] 12/31/2023 8:40 AM EDT Office Visit Rheumatology [address] [place] [address] Isidro Phillips MD [address] [place] [address] [place] [address] 01/08/2024 12:20 PM EST Office Visit Interventional Pain Center, [facility] [place] [address] [facility] [place] [address] Anni Gomez MD [address] [facility] [address] 05/24/2024 9:00 AM EDT Office Visit Cardiology [address] [place] [address] Quinn Uriostegui PA-C [address] [place] [id number] 10/18/2024 12:30 PM EDT Imaging Radiology [address] [place] [address] Scheduled Procedures Name Priority Associated Diagnoses Date/Ti me COLONOSCOPY FLEXIBLE PROXIMAL DIAGNOSTIC Recall History of colon polyps Health Maintenance Due Date Last Done Comments DISCUSS TOBACCO CESSATION (REFER TO SMARTSET #2507) 1965 COVID-19 Vaccine (#1) 1970 Hepatitis B [...] this encounter Medical Devices Implanted Type Area Television Tube Inspector Device Identifier Shelf Expiration Date Model / Serial / Lot Alfonzo Arthrodesis Nail, Left Implanted:[place] [facility] [place] - Non Human Left: Leg Upper ALFONZO 04/01/2016 8228-5604 S / / [id number] Screw Locking 1896-5035s - [id number] Implanted:Qty: 1 [place]10/2012 [place] [facility] [place]: Leg Upper ALFONZO : TRAUMA 08/29/2013 9371-4625 S / / [id number] Screw Locking 1896-5030s - [id number] Implanted:Qty: 1 on [place]10/2012 [place] [facility] [place]FONZO : TRAUMA 04/29/2013 8518-8863 S / / [id number] Screw Threaded Lckg 5x42.5mm - [id number] Implanted:05/31 (Quantity not on file) Left: Leg Upper ALFONZO : ORTHOPAEDICS 12/31/2015 2314-2193 S / / [id number] Screw Locking 1896-5040s - [id number] Implanted:Qty: 1 on [place]10/2012 [place] [facility] [place]: Leg Upper ALFONZO : TRAUMA 07/30/2014 1759-1218 S / / [id number] Screw Compression 1825-0000s - [id number] Implanted:Qty: 1 [place]10/2012 [place] [facility] [place]: Leg Upper ALFONZO : TRAUMA 12/30/2012 5775-8959 S / / [id number] Screw Shaft 1891-5045s - [id number] Implanted:Qty: 1 [place]10/2012 [place] [facility] [place]: Leg Upper ALFONZO : ORTHOPAEDICS 12/31/2015 4097-9826 S / / [id number] Mesh Vicryl 12 X 12 Vkm-L - [id number] Implanted:Qty: 1 on 04/25/2020 by Dejuan Kaufman [place] [facility] [place]/A: Abdomen JNJ : [employer] 04/29/2024 VKM-L / / [id number] Mesh Soft 54q30mf - [id number] Implanted:Qty: 1 on 04/25/2020 by Dejuan Kaufman [place] [facility] [place] N/A: Abdomen CR BARD : DAVOL [id number] 07/27/2024 [id number] / / [id number] documented as of this encounter Advance Directives [...] Directives occurred with: Not Discussed Care Teams Recovery Rn Relationship Specialty Start Date End Date Shazia Bee MD [address] [place] [address] [place] [address] PCP - General Family Medicine 10/30/23 documented as of this encounter
--- OUTSIDE RECORDS SUMMARY | 2024-04-01 20:50 | External Medical Summary | Summary of Care ---
Author Name Unknown Organization [facility] Address [address] [facility] [place] [address] Phone [phone] Care Team Providers Care Career And Guidance Counselor Name Role Phone Shazia Bee MD Primary Care Provide r Reason for Visit * Reason Onset Date Comments Precert In Process 11/19/2023 20 Mey Opt umRX Lubiprostone Encounter Details Date Type Department Care Team (Late st Contact Info) Description 11/19/2023 Telephone Gastroenterology, [facility] [address] [place] [address] Sheryl Low CRNP [address] [place] [address] Precert In Process (20 Mey AlmonteumRX Lubi... Allergies No known active allergiesdocumented as of [...] Shima [facility] CRC- Keri Zaman ([phone]) [facility] CRC- Cate Trinidad ([phone]) [facility] CRC- Julia Vlilafana ([phone]) Diagnosis changed due to Research Module. Go to Snapshot for study details. Anxiety 04/26/2015 11/20/2016 Recurrent major depressive disorder 04/14/2014 06/21/2019 Adrenal insufficiency 12/12/20132016 FORCE TJR RESEARCH OTHER*[id number] 11/02/2013 03/19/2016 Overview: Patient has completed participation [...] Next Due Pneumococcal Conjugate Vacci ne, 20-valent ([id number]) 11/15/2021 Pneumococcal Polysaccharide PPV23 (Pneumovax) 06/26/2008 Seasonal [...] care: Self-administered - route pre-cert request to [id number] Office Information: Prescriber: RAJWINDER Celeste documented in this encounter Plan of Treatment Upcoming Encounters Date Type Department Care Team (Late st Contact Info) Description 11/25/2023 11:15 AM EDT Office Visit General Surgery, [place] [address] [place] [address] Swati Pond MD [address] [place] [address] 12/07/2023 10:00 AM EDT Office Visit Neurology [facility] [address] [place] [address] Bridget Argueta PA-C [address] [place] [address] [address] 12/31/2023 8:40 AM EDT Office Visit Rheumatology [facility] [address] [facility] [place] [address] Isidro Phillips MD [address] [facility] [place] [address] 01/08/2024 12:20 PM EST Office Visit Interventional Pain Center, [facility] [place] [address] Anni Gomez MD 16 [place] [address] 05/24/2024 9:00 AM EDT Office Visit Cardiology [address] [place] [address] Quinn Uriostegui PA-C [address] [place] [address] 10/18/2024 12:30 PM EDT Imaging Radiology [address] [place] [address] Scheduled Procedures Name Priority Associated Diagnoses Date/Ti me COLONOSCOPY FLEXIBLE PROXIMAL DIAGNOSTIC Recall History of colon polyps Health Maintenance Due Date Last Done Comments DISCUSS TOBACCO CESSATION (REFER TO SMARTSET #3869) 1965 COVID-19 Vaccine (#1) 1970 Hepatitis B [...] this encounter Medical Devices Implanted Type Area Autographer Device Identifier Shelf Expiration Date Model / Serial / Lot [place] Arthrodesis Nail, Left Implanted:Qty: 1 on 06/10/2012 [place] [facility] [place] Tissue - Non Human Left: Leg Upper ALFONZO 04/01/2016 9647-5856 S / / [id number] Screw Locking 1896-5035s - [id number] Implanted:Qty: 1 on 06/10/2012 [place] [facility] [place] Left: Leg Upper ALFONZO : TRAUMA 08/29/2013 2194-8412 S / / [id number] Screw Locking 1896-5030s - [id number] Implanted:Qty: 1 on 06/10/2012 at [place] [facility] [place] [place] ALFONZO : TRAUMA 04/29/2013 5167-2889 S / / [id number] Screw Threaded Lckg 5x42.5mm - [id number] Implanted:05/31 (Quantity not on file) Left: Leg Upper ALFONZO : ORTHOPAEDICS 12/31/2015 9231-2351 S / / [id number] Screw Locking 1896-5040s - [id number] Implanted:Qty: 1 on 06/10/2012 [place] [facility] [place] Left: Leg Upper ALFONZO : TRAUMA 07/30/2014 1530-1369 S / / [id number] Screw Compression 1825-0000s - [id number] Implanted:Qty: 1 on 06/10/2012 [place] [facility] [place] Left: Leg Upper ALFONZO : TRAUMA 12/30/2012 0329-1904 S / / [id number] Screw Shaft 1891-5045s - [id number] Implanted:Qty: 1 on 06/10/2012 [place] [facility] [place] Left: Leg Upper ALFONZO : ORTHOPAEDICS 12/31/2015 5392-8785 S / / [id number] Mesh Vicryl 12 X 12 Vkm-L - [id number] Implanted:Qty: 1 on 04/25/2020 by Dejuan Kaufman MD at [place] [facility] N/A: Abdomen JNJ : [employer] 04/29/2024 VKM-L / / [id number] Mesh Soft 31r63wm - [id number] Implanted:Qty: 1 on 04/25/2020 by Dejuan Kaufman MD [place] [facility] [place] N/A: Abdomen CR BARD : DAVOL [id number] 07/27/2024 [id number] / / [id number] documented as of this encounter Visit Diagnoses [...] Directives occurred with: Not Discussed Care Teams Career And Guidance Counselor Relationship Specialty Start Date End Date Shazia Bee MD [address] [place] [address] [place] [address] PCP - General Family Medicine 10/30/23 documented as of this encounter
--- OUTSIDE RECORDS SUMMARY | 2024-04-01 20:50 | External Medical Summary | Summary of Care ---
Author Name Unknown Organization [facility] Address [address] [facility] [place] [address] Phone [phone] Care Team Providers Care Outreach Rep Name Role Phone Shazia Bee MD Primary Care Provide r Reason for Visit * Reason Onset Date Comments Pre Cert/Prior Auth 11/19/2023 Encounter Details Date Type Department Care Team (Late st Contact Info) Description 11/19/2023 Telephone Gastroenterology, [facility] [address] [place] [address] Sheryl Low CRNP [address] [place] [address] Pre Cert/Prior Auth Allergies No known active allergiesdocumented as of [...] PI: Dr. Shima Burns CRC- Keri Zaman ([phone]) [facility] CRC- Cate Trinidad ([phone]) [facility] CRC- Julia Villafana ([phone]) Diagnosis changed due to Research Module. Go to Snapshot for study details. Anxiety 04/26/2015 11/20/2016 Recurrent major depressive disorder 04/14/2014 06/21/2019 Adrenal insufficiency 12/12/20132016 FORCE TJR RESEARCH OTHER*[id number] 11/02/2013 03/19/2016 Overview: Patient has completed participation [...] Next Due Pneumococcal Conjugate Vacci ne, 20-valent ([id number]) 11/15/2021 Pneumococcal Polysaccharide PPV23 (Pneumovax) 06/26/2008 Seasonal [...] care: Self-administered - route pre-cert [facility] Office Information: Prescriber: RAJWINDER Celeste documented in this encounter Plan of Treatment Upcoming Encounters Date Type Department Care Team (Late st Contact Info) Description 11/25/2023 11:15 AM EDT [facility] [address] [place] [address] Swati Pond MD [address] [place] [address] 12/07/2023 10:00 AM EDT Office Visit Neurology [facility] [place] [address] [place] [address] [address] Bridget Argueta PA-C [address] [place] [address] 12/31/2023 8:40 AM EDT Office Visit Rheumatology [place] [address] [place] [address] [address] Isidro Phillips MD [facility] [place] [address] 01/08/2024 12:20 PM EST Office Visit Interventional Pain Center, [facility] [address] [place] [address] Anni Gomez MD [address] [place] [address] 05/24/2024 9:00 AM EDT Office Visit Cardiology [address] [place] [address] Quinn Uriostegui PA-C [address] [place] [address] 10/18/2024 12:30 PM EDT Imaging Radiology [address] [place] [address] Scheduled Procedures Name Priority Associated Diagnoses Date/Ti me COLONOSCOPY FLEXIBLE PROXIMAL DIAGNOSTIC Recall History of colon polyps Health Maintenance Due Date Last Done Comments DISCUSS TOBACCO CESSATION (REFER TO SMARTSET #7306) 1965 COVID-19 Vaccine (#1) 1970 Hepatitis B [...] this encounter Medical Devices Implanted Type Area Ramp And Cargo Supervisor Device Identifier Shelf Expiration Date Model / Serial / Lot [place] Arthrodesis Nail, Left Implanted:Qty: 1 on 06/10/2012 at [place] [facility] [place] Tissue - Non Human Left: Leg Upper ALFONZO 04/01/2016 8693-5507 S / / [id number] Screw Locking 1896-5035s - [id number] Implanted:Qty: 1 on 06/10/2012 at [place] [facility] [place] Left: Leg Upper ALFONZO : TRAUMA 08/29/2013 3417-9783 S / / [id number] Screw Locking 1896-5030s - [id number] Implanted:Qty: 1 on 06/10/2012 at [place] [facility] [place] ALFONZO : TRAUMA 04/29/2013 1234-1444 S / / [id number] Screw Threaded Lckg 5x42.5mm - [id number] Implanted:05/31 (Quantity not on file) Left: Leg Upper ALFONZO : ORTHOPAEDICS 12/31/2015 6750-0609 S / / [id number] Screw Locking 1896-5040s - [id number] Implanted:Qty: 1 on 06/10/2012 at [place] [facility] [place] Left: Leg Upper ALFONZO : TRAUMA 07/30/2014 5830-3666 S / / [id number] Screw Compression 1825-0000s - [id number] Implanted:Qty: 1 on 06/10/2012 at [place] [facility] [place] Left: Leg Upper ALFONZO : TRAUMA 12/30/2012 6945-4059 S / / [id number] Screw Shaft 189-5045s - [id number] Implanted:Qty: 1 on 06/10/2012 at [place] [facility] [place] Left: Leg Upper ALFONZO : ORTHOPAEDICS 12/31/2015 7509-9777 S / / [id number] Mesh Vicryl 12 X 12 Vkm-L - [id number] Implanted:Qty: 1 on 04/25/2020 by Dejuan Kaufman MD at [place] [facility] [place] N/A: Abdomen JNJ : [employer] 04/29/2024 VKM-L / / [id number] Mesh Soft 58j20gm - [id number] Implanted:Qty: 1 on 04/25/2020 by Dejuan Kaufman MD at [place] [facility] [place] N/A: Abdomen CR BARD : DAVOL [id number] 07/27/2024 [id number] / / [id number] documented as of this encounter Visit Diagnoses [...] Directives occurred with: Not Discussed Care Teams Outreach Rep Relationship Specialty Start Date End Date Shazia Bee MD [address] [place] [address] [place] [phone] PCP - General Family Medicine 10/30/23 documented as of this encounter
--- OUTSIDE RECORDS SUMMARY | 2024-04-01 20:51 | External Medical Summary | Summary of Care ---
Author Name Unknown Organization [facility] Address [address] [facility] [place] [address] Phone [phone] Care Team Providers Care Office Manager Name Role Phone Unavailable Primary Care Provider Unavailabl e Reason for Visit * Reason Comments eRx-Medication Refill Encounter Details Date Type Department Care Team (Late st Contact Info) Description 10/24/2023 Refill Family Medicine [address] [place] [phone] Arianne Sotelo MD [address] [place] [address] [place] [address] Nausea and vomiting, unspecified vomiting type Allergies No known active allergiesdocumented as of this encounter (statuses as of 10/26/2023) Medications Medication Sig Dispensed Refills Start Date [...] Oral Tablet (Valtrex) as needed. 2 Active DULoxetine HCl 60 MG Oral Capsule Delayed Release Particles (Cymbalta)Indicati ons:LEVI (generalized anxiety disorder),Moderate episode of recurrent major depressive disorder (HCC) Take by mouth 2 Capsules in the morning. 180 Capsule 1 2 Active Pramoxine HCl 1 % External [...] before bedtime. 180 Capsule 1 4 Active rOPINIRole HCl 2 MG Oral Tablet (Requip)Indication s:RLS (restless legs syndrome) TAKE ONE TABLET BY MOUTH ONCE DAILY IN THE EVENING 90 Tablet 4 Active Linzess 72 MCG Oral Capsule (linaCLOtide) TAKE 1 CAPSULE BY MOUTH DAILY BEFORE BREAKFAST 90 Capsule 3 4 Active Hydroxychloroquine Sulfate 200 MG Oral Tablet (Plaquenil)Indicat ions:Cutaneous lupus erythematosus 2 tablets each evening 180 Tablet 1 4 Active Wegovy 0.25 MG/0.5ML Subcutaneous Solution Auto-injector (Semaglutide-Weigh t Management)Indicat ions:Class 1 obesity due to excess calories with serious comorbidity and body mass index (BMI) of 31.0 to 31.9 in adult Inject 0.25 mg under the skin once a week. 2 mL 3 4 Active Sucralfate 1 GM Oral Tablet [...] IN THE MORNING 90 Tablet 4 Active Pantoprazole Sodium 40 MG Oral Tablet Delayed Release (Protonix)Indicati ons:Nausea and vomiting, unspecified vomiting type Take 1 Tablet by mouth in the morning. 30 minutes before the first meal of the day. Do not crush, split or chew the tablet. 30 Tablet 1 4 Active Pantoprazole Sodium 40 MG Oral Tablet Delayed Release (Protonix)Indicati ons:Nausea and vomiting, unspecified vomiting type Take 1 Tablet by mouth in the morning. 30 minutes before the first meal of the day. Do not crush, split or chew the tablet. 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 Go to Snapshot for study details. Anxiety 04/26/2015 11/20/2016 Recurrent major depressive disorder 04/14/2014 06/21/2019 Adrenal insufficiency 12/12/20132016 [facility]EARCH OTHER*[id number] 11/02/2013 03/19/2016 Overview: Patient has completed participation [...] as of this encounter (statuses as of 10/26/2023) Immunizations Name Administration Dates Next Due Pneumococcal Conjugate Vacci ne, 20-valent ([id number]) 11/15/2021 Pneumococcal Polysaccharide PPV23 (Pneumovax) 06/26/2008 Seasonal Influenza, PF, 6 M & above, IM , (FluLaval or Fluzone) 01/20/2023,11/15/2021,12/04/2020,11/21,12/17/2018,11/19/2017,11/20/2016 Seasonal Influenza, Quadriva lent, No Preserve, IM 12/17/2015,12/27/2014 Seasonal Influenza, Split, I IV3, With Preserve, Inj 12/01/2013,12/06/2012,11/18/2011,12/06,12/03/2009,12/26/2008,12/27/2007 ,01/08/2007,12/09/2005 TDAP (age 10 and older)(Boostrix) [...] the money to buy more. Never true 03/30/19 24 Within the past 12 months, t he food you bought just didn't last and you didn't have money to get more. Never true 03/30/2023 Childcare Answer Date Recorded Do you feel overwhelmed with taking care of a child, family member or friend? No 03/30/2023 Does your family need help f inding childcare? (Household - for ages 0-17 years) Not on file 03/30/2023 Clothing Answer Date Recorded Have you been unable to get clothing when it was really needed? Yes 03/30/2023 Is your family able to get c lothes or diapers when needed? (Household - for ages 0-17 years) Not on file 03/30/2023 Personal Safety Answer Date Recorded Do you feel unsafe or have concerns for your saf ety? No 03/30/2023 Do you have concerns for you r family's safety? (Household - for ages 0-17 years) Not on file 03/30/2023 Utilities Answer Date Recorded Do you have trouble paying y our heating, water, or electric bill? Yes 03/30/2023 Is your family able to pay t he heat, water, or electric bill? (Household - for ages 0-17 years) Not on file 03/30/2023 Does your family have access to good internet? (Household - for ages 0-17 years) Not on file 03/30/2023 Employment Status Answer Date Recorded Are you unemployed or without regular income? No 03/30/2023 Does the household have a re gular source of income? (Household - for ages 0-17 years) Not on file 03/30/2023 Social Connections Answer Date Recorded How often do you feel lonely or isolated from those around you? Sometimes 03/30/2023 Financial Resource Strain Answer Date R ecorded Do you have any trouble payi ng for your medications, or do you think you might in the future? No 03/30/2023 Does your family have troubl e paying for medicine? (Household - for ages 0-17 years) Not on file 03/30/2023 Transportation Needs Answer Date Record ed READ ONLY Do you have troubl e getting a ride to medical visits or work? Never True 03/30/2023 Does your family have a hard time getting a ride to doctors visits? (Household - for ages 0-17 years) Not on file 03/30/2023 Has lack of transportation k ept you from medical appointments, meetings, work, or from getting things needed for daily living? Check all that apply. (Adult - for ages 18 years and over) Not on file 03/30/2023 Do you (or your family) have trouble finding or paying for a ride (transportation)? (Household - for ages 0-17 years) Not on file 03/30/2023 Housing Stability Answer Date Recorded Do you currently live in a s helter or have no steady place to sleep at night? No 03/30/2023 READ ONLY Do you think you a re at risk of becoming homeless? No 03/30/2023 Does your family worry about paying for your home or becoming homeless? (Household - for ages 0-17 years) Not on file 0 03/30/2023 Are you homeless or worried that you might be in the future? (Adult - for ages 18 years and over) Not on file Are you (or your family) gina eless or worried that you might be in the future? (Household - for ages 0-17 years) Not on file Food Insecurity Answer Date Recorded Do you need food for this week? No 03/30/2023 Are you able to get enough f ood for your family? (Household - for ages 0-17 years) Not on file 03/30/2023 Does your family need food t his week? (Household - for ages 0-17 years) Not on file 03/30/2023 Do you always have enough fo od for your family? (Household - for ages 0-17 years) Not on file 03/30/2023 Sex and Gender Information Value Date Recorded [...] encounter Miscellaneous Notes * Telephone Encounter - Ria Bragg [facility] - 10/26/2023 12:38 PM EDTSigned Prescriptions: Disp Refills Pantoprazole Sodium 40 MG Oral Tablet Jenniffer*30 Tab*1 Sig: Take 1 Tablet by mouth in the morning. 30 minutes before the first meal of the day. Do not crush, split or chew the tablet. Authorizing Provider: SHAZIA BEE Ordering User: RIA BRAGG * Telephone Encounter - Interface, [facility] - 10/26/2023 6:03 AM EDT Pending Prescriptions: Disp Refills Pantoprazole Sodium 40 MG Oral Tablet Jenniffer*30 Tab*0 Sig: Take 1Tablet by mouth in the morning. 30 minutes before the first meal of the day. Do not crush, split orchew the tablet. documented in this encounter Plan of Treatment Upcoming Encounters Date Type Department Care Team (Late st Contact Info) Description 10/30/2023 9:20 AM EDT Office Visit Family Medicine [address] [place] [phone] Shazia Bee MD [address] [place] [address] [place] [address] 11/05/2023 11:40 AM EDT Office Visit Nutrition & Weight Management, [facility] [address] [place] [address] Tiara Gautam PA-C [address] [place] [address] 11/13/2023 9:15 AM EDT Office Visit Dermatology [facility] [address] [facility] [place] [address] Adebayo Pressley MD [address] [facility] [place] [address] 12/31/2023 8:40 AM EDT Office Visit Rheumatology [place] [address] [facility] [place] [address] Isidro Phillips MD [facility] [place] [address] 01/01/2024 12:00 PM EDT Office Visit Gastroenterology [address] [place] [address] Sheryl Low CRNP [address] [place] [address] 05/24/2024 9:00 AM EDT Office Visit Cardiology [address] [place] [address] Quinn Uriostegui PA-C [address] [place] [address] 10/18/2024 12:30 PM EDT Imaging Radiology [address] [place] [address] Scheduled Procedures Name Priority Associated Diagnoses Date/Ti [...] 04/24/2023 04/24/2020, 04/24/2020 Colorectal Cancer Screening 04/24/2023 Influenza Vaccine (FLU shot) (#1) 2023 01/20/2023, 11/15/2021, 12/04/2020, Additional history exists Mammogram 10/14/2024 10/15/2023, 10/01, 08/30/2021, Additional history exists Diabetes Screening 08/20/2026 08/21/2023, 0 06/22/2023, 03/31/2023, Additional history exists DTaP,Tdap,and Td Vaccines (3 - Td or Tdap) 06/08/2028 06/08/2018, 08/27/2007 Lipid Panel 10/07/2028 10/08/2023, 03/0 04/2022, 03/25/2021, Additional history exists Zoster Vaccines Completed 05/31/2019, 04/01/2019 Pneumococcal Vaccine: Pediatrics (0 to 5 Years) and At-Risk Patients (6 to 64 Years) Completed 11/15/2021, 06/26/2008 Lung Cancer Screening Completed 01/15/2022 HPV (Gardasil) Vaccine Aged Out No lo nger eligible based on patient's age to complete this topic MENINGOCOCCAL (MENACTRA/MENVEO) Aged Out No longer eligible based on patient's age to complete this topic documented as of this encounter Medical Devices Implanted Type Area Silverware Washer Device Identifier Shelf Expiration Date Model / Serial / Lot Alfonzo Arthrodesis Nail, Left Implanted:Q[place]: 1 on [place] [facility] [place] Human Left: Leg Upper ALFONZO 04/01/2016 [id number] S / / [id number] Screw Locking 1896-5035s - [id number] Implanted:Qty: 1 on 06/10/2012 [place] [facility] [place]: Leg Upper ALFONZO : TRAUMA 08/29/2013 [id number] S / / [id number] Screw Locking 1896-5030s - [id number] Implanted:Qty: 1 on 06/10/2012 [place] [facility] [place]FONZO : TRAUMA 04/29/2013 [id number] S / / [id number] Screw Threaded Lckg 5x42.5mm - [id number] Implanted:05/31 (Quantity not on file) Left: Leg Upper ALFONZO : ORTH[employer] 12/31/2015 5008-8580 S / / [id number] Screw Locking 1896-5040s - [id number] Implanted:Qty: 1 on 06/10/2012 [place] [facility] [place]: Leg Upper ALFONZO : TRAUMA 07/30/2014 [id number] S / / [id number] Screw Compression 1825-0000s - [id number] Implanted:Qty: 1 on 06/10/2012 [place] [facility] [place]: Leg Upper ALFONZO : TRAUMA 12/30/2012 0785-5897 S / / [id number] Screw Shaft 1891-5045s - [id number] Implanted:Qty: 1 on 06/10/2012 [place] [facility] [place]: Leg Upper ALFONZO : ORTHOPAEDICS 12/31/2015 [id number] S / / [id number] Mesh Vicryl 12 X 12 Vkm-L - [id number] Implanted:Qty: 1 on 04/25/2020 by Dejuan Kaufman [place] [facility] [place]/A: Abdomen JNJ : [employer] 04/29/2024 VKM-L / / [id number] Mesh Soft [id number] - [id number] Implanted:Qty: 1 on 04/25/2020 by Dejuan Kaufman MD [place] [facility] [place]/A: Abdomen CR BARD : ASHTYN [id number] 07/27/2024 [id number] / / [id number] documented as of this encounter Visit Diagnoses [...]
--- OUTSIDE RECORDS SUMMARY | 2024-04-01 20:51 | External Medical Summary | Summary of Care ---
Author Name Unknown Organization [facility] Address [address] [facility] [place] [address] Phone [phone] Care Team Providers Care Music Engraver Name Role Phone Shazia Bee MD Primary Care Provide r Reason for Visit * Reason Comments Follow Up Pt here to f/u for G ERD/constipation. Pt c/o increased reflux. Pt still taking the Protonix 40mg daily and Carafate. BM's every 3-4 days. Pt states when she takes Linzess she gets diarrhea/urgency. Only taking on days she knows she's not leaving the house. Encounter Details Date Type Department Care Team (Latest Contact Info) Description 11/06/2023 12:30 PM EDT Office Visit Gastroenterology [address] [place] [address] Sheryl Low CRNP [address] [place] [address] Gastroesophageal reflux disease without esophagitis*; Nausea and vomiting, unspecified vomiting type; Chronic constipation Allergies No known active allergiesdocumented as of this encounter (statuses as of 11/06/2023) Medications Medication Sig Dispensed Refills Start Date [...] bedtime. 180 Capsule 1 06/18/19 24 Active rOPINIRole HCl 2 MG Oral Tablet (Requip)Indication s:RLS (restless legs syndrome) TAKE ONE TABLET BY MOUTH ONCE DAILY IN THE EVENING 90 Tablet 08/10/19 24 Active Hydroxychloroquine Sulfate 200 MG Oral [...] pain.. 90 Tablet 1 10/30/19 24 Active Ozempic (0.25 or 0.5 MG/DOSE) 2 MG/3ML Solution Pen-injector (Semaglutide(0.25 or 0.5MG/DOS)) Inject 0.25mg under the skin once weekly for 4 weeks then increase to 0.5mg under the skin once weekly thereafter 9 mL 1 11/05/19 24 Active Lubiprostone 24 MCG Oral Capsule (Amitiza) Take 1 Capsule by mouth 2 times a day with morning and evening meals. 60 Capsule 3 11/06/19 24 Active Pantoprazole Sodium 40 MG Oral Tablet Delayed Release (Protonix)Indicati ons:Nausea and vomiting, unspecified vomiting type Take 1 Tablet by mouth in the morning and 1 Tablet before bedtime. Do not crush, split or chew the tablet. 60 Tablet 1 11/06/19 24 Active Linzess 72 MCG Oral Capsule (linaCLOtide) TAKE 1 CAPSULE BY MOUTH DAILY BEFORE BREAKFAST 90 Capsule 3 08/13/19 24 024 Discontinued Pantoprazole Sodium 40 MG Oral Tablet Delayed Release (Protonix)Indicati ons:Nausea and vomiting, unspecified vomiting type Take 1 Tablet by mouth in the morning. 30 minutes before the first meal of the day. Do not crush, split or chew the tablet. 30 Tablet 1 10/26/19 24 024 Discontinued(Re fill) documented as of this encounter (statuses as of 11/06/2023) Active Problems Problem Noted Date Diagnosed Date [...] as of this encounter (statuses as of 11/06/2023) Resolved Problems Problem Noted Date Diagnosed Date [...] PI: Dr. Shima Burns [facility]- Keri Zaman ([phone]) [facility]- Cate Trinidad ([phone]) [facility]- Julia Vilalfana ([phone]) Diagnosis changed due to Research Module. Go to Snapshot for study details. Anxiety 04/26/2015 11/20/2016 Recurrent major depressive disorder 04/14/2014 06/21/2019 Adrenal insufficiency 12/12/20132016 [employer] [facility] RESEARCH OTHER*[id number] 11/02/2013 03/19/2016 Overview: Patient has completed participation [...] as of this encounter (statuses as of 11/06/2023) Immunizations Name Administration Dates Next Due Pneumococcal Conjugate Vacci ne, 20-valent ([id number]) 11/15/2021 Pneumococcal Polysaccharide PPV23 (Pneumovax) 06/26/2008 Seasonal [...] Sign Reading Time Taken Comments Blood Pressure 143/74 11/06/2023 12:23 PM EDT Pulse 85 11/06/2023 12:23 PM EDT Temperature 36.7 C (98 F) 11/06/2023 12:23 PM EDT Respiratory Rate - - Oxygen Saturation - - Inhaled Oxygen Concentration - - Weight 98.4 kg (217 lb) 11/06/2023 12:23 PM EDT Height - - Body Mass Index 36.11 11/05/2023 11:36 AM EDT documented in this [...] as of this encounter Progress Notes * Sheryl Low CRNP - 11/06/2023 12:37 PM EDT DATE OF SERVICE: 11/06/2023 REFERRING PHYSICIAN: Shazia Bee MD CC: Heartburn HPI: Tracy Chen is a 58 year old female w hx of GERD, constipation, who is seen today w c/o increase heartburn. Reports that she'd had issues with this for years but recently worse. She had been onWegovy in the past but hasn't been able to get this med for months. Just prescribed Ozempic yesterday but hasn't picked this up. She is currently taking Pantoprazole 40mg daily & Carafate 1g qHS. Denies any food triggers. + smoker, denies ETOH, denies NSAIDs. She has issues w constipation but only takes Linzess on prn basis as it makes her stools very loose. Takes this med every 3 days or so.Has had hematochezia before. She is due for screening colonoscopy this year but hasn't been able tofind a hazardous materials tanker driver to get to her colonoscopy appt. Will try asking her son. Prior Diagnostic Testing: Esophagram May 2021: severe GERD. Labs: tTG normal in 2021 EUS 01/06/22: Pancreatic parenchymal abnormalities consisting of diffuse echogenicity were noted in the entire pancreas, otherwise normal. Labs: LFTs and lipase normal except mildly elevated Alk Phos at 226 in Apr 2021. ESR and Sed were normal on various dates. NM GES 04/23/21: Normal. CTAP 2022: 1. No acute abdominal or pelvic findings. 2. A region of ovoid soft tissue density in the right perianal subcutaneous fat is noted and is stable compared with the prior exam likely related to postoperative scarring. 3. Diffuse hypodensity of the liver is noted consistent with fatty infiltration. 4. Old granulomatous changes of the liver with evidence of hepatic steatosis. Similar rounded low-density lesion in the anterior left lobe of the liver which is too small to characterize, statistically benign. CTAP IV and oral 03/20/21: normal post partial colectomy. Colonoscopy 04/24/20: 8 mm ascending colon polyp removed. There was a widely patent loop colostomy with normal mucosa, both sides, sigmoid colon. Sigmoid diverticulosis and hemorrhoids EGD August 2019: Gastritis, small amount of food residue. Complete Abd US 01/20/22: Status post cholecystectomy. Mild hepatomegaly. Suspect tiny bilateral parapelvic cysts. Suspect tiny/punctate nonobstructing left intrarenal calculus. 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/2012 left knee Loss of teeth due to trauma, extraction, or periodontal disease Lumbar degenerative disc disease 05/14/2012 Lumbar radiculopathy Lumbar stenosis Lupus (HCC) Mixed dyslipidemia OA (osteoarthritis) Osteoarthritis, knee 05/14/2012 Pain in joint involving lower leg Reflex sympathetic dystrophy of the upper limb Tobacco use disorder Family History Problem Relation Name Age of [...] Hypertension Uncle (Unspecified) Breast Cancer Aunt (Maternal) Past Surgical History: Procedure Laterality Date BREAST BIOPSY Left benign DELIVERY 1985,1987,1990 COLONOSCOPY, DIAGNOSTIC (RECTUM) 04/24/2020 adenomatous polyp, diverticulosis, repeat 3 yrs / COLONOSCOPY FLEXIBLE PROXIMAL DIAGNOSTIC performed by Mart Kyle MD at ENDOSCOPY [facility] COLOSTOMY N/A 11/11/2019 COLOSTOMY performed by Dejuan Kaufman MD at [place] [facility] DRAINAGE OF RECTAL ABSCESS, DEEP Bilateral 11/11/2019 INCISION AND DRAINAGE DEEP RECTAL ABSCESS performed by Dejuan Kaufman MD at [facility] EGD, FLEXIBLE, DIAGNOSTIC 01/06/2022 ESOPHAGOGASTRODUODENOSCOPY (EGD), FLEXIBLE, TRANSORAL, DIAGNOSTIC performed by Mart Kyle MD at ENDOSCOPY [facility] EGD, W/ENDOSCOPIC US N/A 09/06/2019 dilation CBD, sludge CBD/small amount of food in esophagus/ESOPHAGOGASTRODUODENOSCOPY (EGD), FLEXIBLE, TRANSORAL, ENDOSCOPIC ULTRASOUND performed by Mart Kyle MD at OR [facility] EGD, W/ENDOSCOPIC US 01/06/2022 Normal scope, evid of cholecystectomy, pancreatic paranchymal abnormalities consisting of diffuse echogenicity / no specimens collected / ESOPHAGOGASTRODUODENOSCOPY (EGD), FLEXIBLE, TRANSORAL, ENDOSCOPIC ULTRASOUND performed by Mart Kyle MD at ENDOSCOPY [facility] ENDOSCOPY, ERCP, W/BIOPSY 10/19/2019 Choledocholithiasis, stent removed / ENDOSCOPIC RETROGRADE CHOLANGIOPANCREATOGRAPHY (ERCP) BIOPSY performed by Mart Kyle MD at ENDOSCOPY [facility] ERCP, DIAGNOSTIC, SPECIMEN COLLECTION N/A 09/06/2019 biliary papillary stenosis/1 plastic pancreatic stent ventral pancreatic duct/1 plastic biliary stent CBD/repeat 6 weeks/ENDOSCOPIC RETROGRADE CHOLANGIOPANCREATOGRAPHY (ERCP) DIAGNOSTIC performed by Mart Kyle MD at OR [facility] FUSION OF KNEE 06/10/2012 ARTHRODESIS KNEE performed by Marcellus Vallecillo MD at [place] [facility] IMPLANT MESH W/ ABD HERNIA REPR/DEBRIDE N/A 04/25/2020 IMPLANTATION MESH WITH INCISIONAL/VENTRAL HERNIA performed by Dejuan Kaufman MD at [place] [facility] INFORMATION left knee surgery INJECT DX/THER SUBSTANCE INTERLAMINAR CERVICAL/THORACIC W IMAGE GUIDE 08/20/2022 INJECTION SPINE LUMBAR CERVICAL OR THORACIC performed by Heriberto Bansal, DO at OR [facility] INJECT DX/THER SUBSTANCE INTERLAMINAR LUMBAR/SACRAL W IMAGE GUIDE 06/07/2018 INJECTION SPINE LUMBAR OR SACRAL performed by Heriberto Desiree Bansal, DO at OR [facility] INJECT DX/THER [...] SPINE LUMBAR OR SACRAL performed by Heriberto Bansal, DO at OR [facility] INJECT DX/THER SUBSTANCE INTERLAMINAR LUMBAR/SACRAL W IMAGE GUIDE 05/21/2022 INJECTION SPINE LUMBAR OR SACRAL performed by Heriberto Isidro Bansal, DO at OR [facility] KNEE ARTHROSCOPY/SURGERY LAPAROSCOPY DIAGNOSTIC 11/11/2019 LAPAROSCOPY DIAGNOSTIC performed by Dejuan Kaufman MD at [place] [facility] LAPAROSCOPY; CHOLECYSTECTOMY 10/24/2019 LUMBAR / SACRAL EPIDURAL, SINGLE LEVEL 06/28/2018 INJECTION TRANSFORAMINAL EPIDURAL LUMBAR OR SACRAL performed by Heriberto Bansal, DO at OR [facility] MUSCLE/FASCIA DEBRIDEMENT, FIRST 20 CM2 Right 2019 DEBRIDEMENT SKIN SUBCUTANEOUS TISSUE AND MUSCLE performed by Dejuan Kaufman MD at [place] [facility] REMOVAL OF SMALL INTESTINE W/FUSION N/A 04/25/2020 ENTERECTOMY SMALL BOWEL RESECTION performed by Dejuan Kaufman MD at [place] [facility] REMOVE FOOT TENDON LESION Right 04/14/2019 EXCISION LESION TENDON FOOT performed by Sana Burgos DPM at OR [facility] REPAIR BOWEL OPENING N/A 04/25/2020 CLOSURE ENTEROSTOMY performed by Dejuan Kaufman MD at [place] [facility] REPAIR INITIAL INCISIONAL OR VENTRAL HERNIA; REDUCIBLE N/A 04/25/2020 REPAIR INITIAL INCISIONAL /VENTRAL HERNIA REDUCIBLE performed by Dejuan Kaufman MD at [place] [facility] SACROILIAC JOINT INJECT W/GUIDANCE 12/18/2021 INJECTION SACROILIAC JOINT performed by Heriberto Bansal DO at OR [facility] SACROILIAC JOINT INJECT W/GUIDANCE 02/19/2022 INJECTION SACROILIAC JOINT performed by Heriberto Bansal DO at OR [facility] SPINE SURGERY PROCEDURE NEC 11/2020 SUBQ DEBRIDEMENT, FIRST 20 CM2 N/A 11/05/2019 DEBRIDEMENT SKIN AND SUBCUTANEOUS TISSUE performed by Williams Barrientos MD at [place] [facility] TOTAL ABD HYSTERECTOMY W/WO REMOVAL OF TUBE(S) 01/2004 has left ovary Social History Tobacco Use Smoking status: Every Day Current packs/day: 0.50 Average packs/day: 0.5 packs/day for 42.0 years (21.0 ttl pk-yrs) Types: Cigarettes Smokeless tobacco: Never Vaping Use Vaping status: Never Used Substance Use Topics Alcohol use: Not Currently Drug use: No Review of patient's allergies indicates: No Known Allergies Current Outpatient Medications Medication Sig Dispense Refill [...] gato, pt lives alone) 222 mL 2 Aspirin [...] before bedtime for anxiety 270 Tablet 1 traZODone HCl 100 MG [...] 1 Capsule before bedtime. 180 Capsule 1 rOPINIRole HCl 2 MG Oral Tablet (Requip) TAKE ONE TABLET BY MOUTH ONCE DAILY IN THE EVENING 90 Tablet 0 Hydroxychloroquine Sulfate 200 MG Oral Tablet (Plaquenil) 2 tablets each evening 180 Tablet 1 Sucralfate 1 GM Oral Tablet (Carafate) TAKE ONE TABLET BY MOUTH AT BEDTIME. may also take additionally up to 4 times daily if needed for nausea, epigastric pain 360 Tablet 0 Baclofen 20 MG Oral Tablet TAKE ONE TABLET BY MOUTH THREE TIMES DAILY in the morning, at noon, and before bedtime if needed for muscle spasms 90 Tablet 2 Gabapentin 600 MG Oral Tablet (Neurontin) take [...] the morning. for pain.. 90 Tablet 1 Lubiprostone 24 MCG Oral Capsule (Amitiza) Take 1 Capsule by mouth 2 times a day with morning and evening meals. 60 Capsule 3 Pantoprazole Sodium 40 MG Oral Tablet Delayed Release (Protonix) Take 1 Tablet by mouth in the morning and 1 Tablet before bedtime. Do not crush, split or chew the tablet. 60 Tablet 1 BLOOD PRESSURE CUFF [facility] for home BP monitoring 1 Kit 1 valACYclovir HCl 1 GM Oral Tablet (Valtrex) as needed. (Patient not taking: Reported on 11/05/2023) Ozempic (0.25 or 0.5 MG/DOSE) 2 MG/3ML Solution Pen-injector (Semaglutide(0.25 or 0.5MG/DOS)) Inject 0.25mg under the skin once weekly for 4 weeks then increase to 0.5mg under the skin once weekly thereafter 9 mL 1 No current facility-administered medications for this visit. REVIEW OF SYSTEMS: See HPI above; All other findings negative. EXAM: Filed Vitals: 11/06/23 1223 BP: 143/74 Pulse: 85 Temp: 36.7 C (98 F) Weight: 98.4 kg (217 lb) GENERAL: Well developed and well nourished in no acute distress. SKIN: No rashes, ulcers, jaundice or spider angiomata. HEENT: Normocephalic, sclera clear. NECK: Supple, trachea midline, no JVD. LUNGS: Clear to auscultation bilaterally, no respiratory distress or accessory muscles used. HEART: Regular rate & rhythm, no murmurs and no gallops. ABDOMEN: Normal bowel sounds, soft and diffuse tenderness EXTREMITIES: No palmar erythema, no ankle edema, no skin discoloration, no clubbing, no cyanosis. NEURO: No lateralizing findings. Sensory/Motor grossly normal. ASSESSMENT AND PLAN: Tracy Chen is a 58 year old female w increased heartburn on daily Protonix and Carafate. + constipation and using Linzess every 3 days. - Trial increase of Protonix to 40mg bid - DC Linzess; will try Amitiza 24mcg bid - GERD diet and lifestyle modifications - Advised to quit smoking - Increase fluids and fiber in diet I spent a total of 30 minutes on the date of service in review of patient's record, and previously obtained information in person and appropriate medical visit, discussion and education of plan, withpatient and/or caregiver, placing orders for tests/referral/procedures as medically necessary and documentation of pertinent clinical information in patient's medical records for their visit today. RETURN TO CLINIC: PRN ; pt will update me on symptoms within 2 weeks via [employer] message [facility], [facility] documented in this encounter Nursing Notes * Marissa Rosario CMA - 11/06/2023 12:23 PM EDT Chief Complaint Patient presents with Follow Up Pt here to f/u for GERD/constipation. Pt c/o increased reflux. Pt still taking the Protonix 40mg daily and Carafate. BM's every 3-4 days. Pt states when she takes Linzess she gets diarrhea/urgency. Only taking on days she knows she's not leaving the house. documented in this encounter Plan of Treatment Upcoming Encounters Date Type Department Care Team (Late st Contact Info) Description 11/06/2023 3:20 PM EDT Immunization Ancillary [address] [place] [address] [place], [place] [address] [place] [address] 11/12/2023 9:45 AM EDT Imaging Radiology [facility] 1[facility], [address] [place] [address] 11/25/2023 11:15 AM EDT Office Visit General Surgery, [place] [address] [place] [address] Swati Pond MD [address] [place] [address] 12/31/2023 8:40 AM EDT Office Visit Rheumatology [address] [place] [address] Isidro Phillips MD [address] [place] [address] [place] [address] 01/08/2024 12:20 PM EST Office Visit Interventional Pain Center, [facility] [address] [facility] [place] [address] Anni Gomez MD [address] [place] [address] 05/24/2024 9:00 AM EDT Office Visit Cardiology [address] [place] [address] Quinn Uriostegui PA-C [address] [facility] [place] [address] 10/18/2024 12:30 PM EDT Imaging Radiology [address] [place] [address] Scheduled Procedures Name Priority Associated Diagnoses Date/Ti [...] 12/04/2020, Additional history exists Mammogram 10/14/2024 10/15/2023, 08/2 04/2022, 08/30/2021, Additional history exists Diabetes Screening 08/20/2026 [...] this encounter Medical Devices Implanted Type Area Manager Android Device Identifier Shelf Expiration Date Model / Serial / Lot Spring Arthrodesis Nail, Left Implanted:Qty: 1 on 06/10/2012 at [place] [facility] Tissue - Non Human Left: Leg Upper ALFONZO 04/01/2016 [id number] S / / [id number] Screw Locking 1896-5035s - [id number] Implanted:Qty: 1 on 06/10/2012 at [place] [facility] Left: Leg Upper ALFONZO : TRAUMA 08/29/2013 [id number] S / / [id number] Screw Locking 1896-5030s - [id number] Implanted:Qty: 1 on 06/10/2012 at [place] [facility] ALFONZO : TRAUMA 04/29/2013 [id number] S / / [id number] Screw Threaded Lckg 5x42.5mm - [id number] Implanted:05/31 (Quantity not on file) Left: Leg Upper ALFONZO : ORTHOPAEDICS 12/31/2015 [id number] S / / [id number] Screw Locking 1896-5040s - [id number] Implanted:Qty: 1 on 06/10/2012 at [place] [facility] Left: Leg Upper ALFONZO : TRAUMA 07/30/2014 2667-1753 S / / [id number] Screw Compression 1825-0000s - [id number] Implanted:Qty: 1 on 06/10/2012 at [facility] Left: Leg Upper ALFONZO : TRAUMA 12/30/2012 2628-2565 S / / [id number] Screw Shaft 1891-5045s - [id number] Implanted:Qty: 1 on 06/10/2012 at [place] [facility] Left: Leg Upper ALFONZO : ORTHOPAEDICS 12/31/2015 [id number] S / / [id number] Mesh Vicryl 12 X 12 Vkm-L - [id number] Implanted:Qty: 1 on 04/25/2020 by Dejuan Kaufman MD at [place] [facility] N/A: Abdomen JNJ : [employer] 04/29/2024 VKM-L / / [id number] Mesh Soft [id number] - [id number] Implanted:Qty: 1 on 04/25/2020 by Dejuan Kaufman MD at [place] [facility] N/A: Abdomen CR BARD : DAVOL [id number] 07/27/2024 [id number] / / [id number] documented as of this encounter Visit Diagnoses Diagnosis Gastroesophageal reflux disease without esophagitis- Primary Esophageal reflux Nausea and vomiting, unspecified vomiting type Chronic constipation Unspecified constipation documented in this encounter Advance Directives * [...] Directives occurred with: Not Discussed Care Teams Music Engraver Relationship Specialty Start Date End Date Shazia Bee MD [address] [place] [address] [place] [address] PCP - General Family Medicine 10/30/23 documented as of this encounter
--- OUTSIDE RECORDS SUMMARY | 2024-04-01 20:51 | External Medical Summary | Summary of Care ---
Author Name Unknown Organization [facility] Address [address] [facility] [place] [address] Phone [phone] Care Team Providers Care Core Maker Name Role Phone Shazia Bee MD Primary Care Provide r Reason for Visit * Reason Onset Date Comments Precert Denied 11/06/2023 OZempic Encounter Details Date Type Department Care Team (Late st Contact Info) Description 11/06/2023 Telephone Nutrition & Weight Management, [facility] [address] [place] [address] Tiara Gautam PA-C [address] [place] [address] Precert Denied (OZempic) Allergies No known active [...] PI: Dr. Shima Burns CRC- Keri Zaman ([phone]) [facility] CRC- Cate Trinidad ([phone]) [facility] CRC- Julia Villafana ([phone]) Diagnosis changed due to Research Module. Go to Snapshot for study details. Anxiety 04/26/2015 11/20/2016 Recurrent major depressive disorder 04/14/2014 06/21/2019 Adrenal insufficiency 12/12/20132016 [employer]CE T[facility] RESEARCH OTHER*[id number] 11/02/2013 03/19/2016 Overview: Patient has completed participation [...] Next Due Pneumococcal Conjugate Vacci ne, 20-valent ([id number]) 11/15/2021 Pneumococcal Polysaccharide PPV23 (Pneumovax) 06/26/2008 Seasonal [...] Miscellaneous Notes * Telephone Encounter - Parmjit Cortez, CATHY - 11/18/2023 4:13 PM EDT Type Date [...] auth end date: N/A Rx [place] Info[place] [facility] [place] Reference #: n/a Julia Muhammad Medication Fitter Welder II [facility] 11/18/23,11:58 AM . Type Date User Summary Attachment Precert 11/17/2023 8:34 AM Julia Muhammad OSA Submitted to secondary with exclusion letter. - Note: Submitted to secondary with exclusion letter. [facility] Authorization Submission Submission Information: Medication: ozempic Portal used: [facility] Insurance: sifonr Authorization #/Ray: [id number] . Type Date User Summary Attachment Precert 11/16/2023 2:59 PM Arina Malik OSA [employer] excludes medication. - Note: [employer] excludes medication. Message from Plan Request Reference Number: [id number]. OZEMPIC INJ 2MG/3ML is denied due to Plan Exclusion. For further questions, call . . Type Date User Summary Attachment Precert 11/09/2023 12:44 PM Julia Muhammad OSA [facility] Authorization Submission - Note: [facility] Authorization Submission Submission Information: Medication: Ozempic Portal used: [facility] Insurance: [employer] Medicare Authorization #/Ray: [id number] * Telephone Encounter - Arina Malik OSA - 11/16/2023 2:59 PM EDT Office reached out for update. [employer] excludes medication per [facility]. Message from Plan Request Reference Number: [id number]. OZEMPIC INJ 2MG/3ML is denied due to Plan Exclusion. For further questions, call . Julia may you try to submit to [facility] for review? Thank you Arina Malik Hand Paint Mixer [facility] 11/16/2023,3:00 PM * Telephone Encounter - Anna Navarro CPhT - 11/06/2023 12:37 PM EDT New or re-auth: New Patient Tracy Benavides needs a prior authorization for a medication through their [employer] insurance. Medication: Ozempic 0.25/0.5 and 0.5/0.5 Formulation: sopn Dosage: Inject 0.25mg under the skin once weekly for 4 weeks then increase to 0.5mg under the skin once weekly thereafter ID: [id number] [id number] PCN:[id number] Phone: [phone] Target ship date is na. Thank you very much, Anna Navarro [facility] Sales And Marketing Engineer [facility] 11/06/2023,12:38 PM documented in this encounter Plan of Treatment Upcoming Encounters Date Type Department Care Team (Late st Contact Info) Description 11/25/2023 11:15 AM EDT Office Visit General Surgery, [place] [address] [facility] [place] [address] Swati Pond MD [address] [facility] [place] [address] 12/07/2023 10:00 AM EDT Office Visit Neurology [facility] [address] [place] [address] Bridget Argueta PA-C [address] [place] [address] 12/31/2023 8:40 AM EDT Office Visit Rheumatology [place] [address] [place] [address] Isidro Phillips MD [facility] [place] [address] 01/08/2024 12:20 PM EST Office Visit Interventional Pain Center, [facility] [address] [facility] [place] [address] Anni Gomez MD [address] [place] [address] 05/24/2024 9:00 AM EDT Office Visit Cardiology [address] [place] [address] Quinn Uriostegui PA-C [address] [place] [address] 10/18/2024 12:30 PM EDT Imaging Radiology [address] [place] [address] Scheduled Procedures Name Priority Associated Diagnoses Date/Ti me COLONOSCOPY FLEXIBLE PROXIMAL DIAGNOSTIC Recall History of colon polyps Health Maintenance Due Date Last Done Comments DISCUSS TOBACCO CESSATION (REFER TO SMARTSET #5924) 1965 COVID-19 Vaccine (#1) 1970 Hepatitis B [...] this encounter Medical Devices Implanted Type Area Surgical Instrument Mechanic Device Identifier Shelf Expiration Date Model / Serial / Lot [place] Arthrodesis Nail, Left Implanted:Qty: 1 on 06/10/2012 at OR [facility] Tissue - Non Human Left: Leg Upper ALFONZO 04/01/2016 9336-0060 S / / [id number] Screw Locking 1896-5038s - [id number] Implanted:Qty: 1 on 06/10/2012 at OR [facility] Left: Leg Upper ALFONZO : TRAUMA 08/29/2013 6127-3617 S / / [id number] Screw Locking 1896-5030s - [id number] Implanted:Qty: 1 on 06/10/2012 at OR [facility] ALFONZO : TRAUMA 04/29/2013 4638-2624 S / / [id number] Screw Threaded Lckg 5x42.5mm - [id number] Implanted:05/31 (Quantity not on file) Left: Leg Upper ALFONZO : ORTHOPAEDICS 12/31/2015 0081-1220 S / / [id number] Screw Locking 1896-5040s - [id number] Implanted:Qty: 1 on 06/10/2012 at OR [facility] Left: Leg Upper ALFONZO : TRAUMA 07/30/2014 7362-5428 S / / [id number] Screw Compression 1825-0000s - [id number] Implanted:Qty: 1 on 06/10/2012 at OR [facility] Left: Leg Upper ALFONZO : TRAUMA 12/30/2012 1979-5179 S / / [id number] Screw Shaft 1891-5045s - [id number] Implanted:Qty: 1 on 06/10/2012 at OR [facility] Left: Leg Upper ALFONZO : ORTHOPAEDICS 12/31/2015 6685-8735 S / / [id number] Mesh Vicryl 12 X 12 Vkm-L - [id number] Implanted:Qty: 1 on 04/25/2020 by Dejuan Kaufman MD at OR [facility] N/A: Abdomen JNJ : [employer] 04/29/2024 VKM-L / / [id number] Mesh Soft [id number] - [id number] Implanted:Qty: 1 on 04/25/2020 by Dejuan Kaufman MD at OR [facility] N/A: Abdomen CR BARD : DAVOL [id number] 07/27/2024 [id number] / / [id number] documented as of this encounter Advance Directives [...] Directives occurred with: Not Discussed Care Teams Core Maker Relationship Specialty Start Date End Date Shazia Bee MD [address] [place] [address] [place] [address] PCP - General Family Medicine 10/30/23 documented as of this encounter
--- OUTSIDE RECORDS SUMMARY | 2024-04-01 20:51 | External Medical Summary | Summary of Care ---
Author Name Unknown Organization [facility] Address [address] [facility] [place] [address] Phone [phone] Care Team Providers Care [employer] French Teacher Name Role Phone Shazia Bee MD Primary Care Provide r Reason for Visit * Reason Comments Follow Up Pt here for follow u p; concerns with medication availability and minimal weight loss; needs form filled out for medical assistance Encounter Details Date Type Department Care Team (Late st Contact Info) Description 11/05/2023 11:40 AM EDT Office Visit Nutrition & Weight Management, [facility] [address] [place] [address] Tiara Gautam PA-C [address] [place] [address] Class 2 severe obesity due to excess calories with serious comorbidity and body mass index (BMI) of 35.0 to 35.9 in adult (HCC)* Allergies No known active allergiesdocumented as of this encounter (statuses as of 11/05/2023) Medications Medication Sig Dispensed Refills Start Date [...] THE EVENING 90 Tablet 08/10/19 24 Active Linzess 72 MCG Oral Capsule (linaCLOtide) TAKE 1 CAPSULE BY MOUTH DAILY BEFORE BREAKFAST 90 Capsule 3 08/13/19 24 Active Hydroxychloroquine Sulfate 200 MG Oral [...] THE MORNING 90 Tablet 10/07/19 24 Active Pantoprazole Sodium 40 MG Oral Tablet Delayed Release (Protonix)Indicati ons:Nausea and vomiting, unspecified vomiting type Take 1 Tablet by mouth in the morning. 30 minutes before the first meal of the day. Do not crush, split or chew the tablet. 30 Tablet 1 10/26/19 24 Active Meloxicam 15 MG Oral Tablet [...] thereafter 9 mL 1 11/05/19 24 Active DULoxetine HCl 60 MG Oral Capsule Delayed Release Particles (Cymbalta)Indicati ons:LEVI (generalized anxiety disorder),Moderate episode of recurrent major depressive disorder (HCC) Take by mouth 2 Capsules in the morning. 180 Capsule 1 11/16/19 22 024 Discontinued(Or dication List Clean Up) Wegovy 0.25 MG/0.5ML Subcutaneous Solution Auto-injector (Semaglutide-Weigh t Management)Indicat ions:Class 1 obesity due to excess calories with serious comorbidity and body mass index (BMI) of 31.0 to 31.9 in adult Inject 0.25 mg under the skin once a week. 2 mL 3 08/27/19 24 024 Discontinued documented as of this encounter (statuses as of 11/05/2023) Active Problems Problem Noted Date Diagnosed Date [...] as of this encounter (statuses as of 11/05/2023) Resolved Problems Problem Noted Date Diagnosed Date [...] PI: Dr. Shima Burns CRC- Keri Zaman ([phone]) [facility] CRC- Cate Trinidad ([phone]) Tiffanie Keenans CRC- Julia Villafana ([phone]) Diagnosis changed due to Research Module. Go to Snapshot for study details. Anxiety 04/26/2015 11/20/2016 Recurrent major depressive disorder 04/14/2014 06/21/2019 Adrenal insufficiency 12/12/20132016 [employer] T[facility] RESEARCH OTHER*[id number] 11/02/2013 03/19/2016 Overview: Patient has completed participation [...] as of this encounter (statuses as of 11/05/2023) Immunizations Name Administration Dates Next Due Pneumococcal Conjugate Vacci ne, 20-valent ([id number]) 11/15/2021 Pneumococcal Polysaccharide PPV23 (Pneumovax) 06/26/2008 Seasonal [...] Tobacco: Never Tobacco Cessation:Ready to Q uit: No; Counseling Given: Yes Alcohol Use Standard Drinks/Week Comments Not Currently [...] Sign Reading Time Taken Comments Blood Pressure 128/72 11/05/2023 11:36 AM EDT Pulse 68 11/05/2023 11:36 AM EDT Temperature 36.6 C (97.9 F) 11/05/2023 11:36 AM E DT Respiratory Rate 20 11/05/2023 11:36 AM EDT Oxygen Saturation - - Inhaled Oxygen Concentration - - Weight 96 kg (211 lb 9.6 oz) 11/05/2023 11:36 AM EDT Height 165.1 cm (5' 5") 11/05/2023 11:36 AM EDT Body Mass Index 35.21 11/05/2023 11:36 AM EDT documented in this [...] as of this encounter Progress Notes * Tiara Gautam PA-C - 11/05/2023 11:37 AM EDT Comprehensive Weight Management Clinic Note Nursing Notes: Marah Saxena RN 11/05/23 1141 Signed Chief Complaint Patient presents with Follow Up Pt here for follow up; concerns with medication availability and minimal weight loss; needs form filled out for medical assistance Tracy Benavides presents in follow up to the comprehensive weight management clinic. The patient is a 58 year old female Wt Readings from Last 6 Encounters: 11/05/23 96 kg (211 lb 9.6 oz) 10/30/23 93.9 kg (207 lb) 10/08/23 93.4 kg (206 lb) 08/21/23 90.2 kg (198 lb 14.4 oz) 07/29/23 90.3 kg (199 lb) 07/20/23 90.2 kg (198 lb 14.4 oz) Patient is receiving ongoing education regarding dietary and physical modifications for weight loss. Initial clinic visit 05/02/22. Weight 218 lbs Height 65 Body mass index is 36.36 kg/m. - Today's weight: 211 lbs - Total weight loss of -7 since initial weight in clinic - Patient's last follow up with GI/Nutrition clinic was on 05/14/23. 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 -Depression is so-so -Pt wanting to get back on wegovy 05/14/23 -off Wegovy 2.4mg dose since Mar - d/t PA issue -feels like she is losing more weight now that she is off Wegovy -was 198lbs in Mar when stopped, now 188lbs -struggling with diarrhea - taking Pepto, which seems to help -trying to increase protein, though getting minimal in -doesn't feel hungry at all 09/03/22 -Routine dietary visit -Wegovy 1.7 mg a little heatburn -Granddaughter is home with pt and cooking supper at night -Going well:having granddaughter home is making her feel better -Challenge: depression, does therapy weekly -Recent fall last week fell 6 times, bruised eye, scrapped arm 07/03/22 On wegovy, 0.5 mg dose No EDI No new meds or med changes Admits to not making any changes since KELLY. Has not even attempted to incorporate previous recommendations into lifestyle. 06/03/22 -Initial RD visit -Not a big eater, drinks a lot of water, not hungry -On Wegovy .25 no GI issues -Does not like to cook when it is just her at home, will cook when her granddaughter is home -Going to court tomorrow for custody issues with granddaughter 05/02/22 -Initial NWM visit with provider - Overall goal: be healthier, feel better, be more mobile - Wt hx: struggled more since 2020 after ostomy (hx of partial colectomy and ostomy formation then ostomy reversal, having had about 2 inches removed (necrotizing fasciitis 2019)) - Barriers: back and leg pain, depression Patient Active Problem List Diagnosis Reflex sympathetic [...] Encounter for long-term (current) use of medications Review of Systems: Review of Systems Constitutional: Positive for fatigue. Gastrointestinal: Negative for abdominal pain, constipation, diarrhea, nausea and vomiting. All other systems reviewed and are negative. Current Medications: Current Outpatient Medications Medication Sig Dispense Refill [...] 1 Tablet by mouth in the morning. Aspirin EC 81 MG Oral Tablet Delayed [...] Take 1 Tablet by mouth at bedtime. Hydrocortisone 5 MG Oral Tablet (Cortef) 2 [...] DAILY IN THE EVENING 90 Tablet 0 Linzess 72 MCG Oral Capsule (linaCLOtide) TAKE 1 CAPSULE BY MOUTH DAILY BEFORE BREAKFAST 90 Capsule3 Hydroxychloroquine Sulfate 200 MG Oral Tablet (Plaquenil) [...] the morning. for pain.. 90 Tablet 1 Ozempic (0.25 or 0.5 MG/DOSE) 2 MG/3ML Solution Pen-injector (Semaglutide(0.25 or 0.5MG/DOS)) Inject 0.25mg under the skin once weekly for 4 weeks then increase to 0.5mg under the skin once weekly thereafter 9 mL 1 BLOOD PRESSURE CUFF MISC for home BP monitoring 1 Kit 1 valACYclovir HCl 1 GM Oral Tablet (Valtrex) as needed. (Patient not taking: Reported on 11/05/2023) Pramoxine HCl 1 % External Lotion Apply to back twice daily as needed (please provide lotion wand, pt lives alone) 222 mL 2 Ondansetron 4 MG Oral Tablet Disintegrating Place 1 Tablet on tongue every 8 hours as needed for Nausea or Vomiting. dissolve on tongue. 30 Tablet 5 Pantoprazole Sodium 40 MG Oral Tablet Delayed Release (Protonix) Take 1 Tablet by mouth in the morning. 30 minutes before the first meal of the day. Do not crush, split or chew the tablet. 30 Tablet 1 No current facility-administered medications for this visit. Water intake: no Prescribed diet: 2176-3034 Low Fat Diet Current diet: Breakfast--2 sausage patties, 3 coffee, water Snack-- skips Lunch-- sandwich, fruit Snack-- skips Dinner-- meat, potato, veggie Snack-- skips Drinks-- water Meals Away from Home-- never Food logs: No Type of exercise: ADL Weight loss Pharmacotherapy: yes Semaglutide 0.25 mg weekly BP 128/72 | Pulse 68 | Temp 36.6 C (97.9 F) | Resp 20 | Ht 1.651 m (5' 5") | Wt 96 kg (211 lb 9.6 oz) | BMI 35.21 kg/m | BSA 2.1 m PHYSICAL EXAMINATION: General: Patient awake alert and oriented. Patient is well appearing and in no acute distress. Skin: No rashes. HEENT: Head is atraumatic, normocephalic. EOMs intact Abdomen: Obese Neuro: No focal deficits Psych: Appropriate mood and affect. Assessment and Plan: Abnormal weight gain / Body mass index is 35.21 kg/m. / Class I obesity: - Would like to proceed with medical management - Barriers are consistency. - Motivators are feeling better overall, avoiding/reducing co-morbid conditions. - The patient was encouraged to to avoid all fruit juices and regular sodas, consume at least 64 ounces of water per day, keep food logs and get weighed on a weekly basis. They were encouraged to increase physical activity as prescribed. - Handouts regarding nutrition and physical activity were provided, as appropriate. 1. Keep a food log. If you bite it, write it! Apps like IsoPlexis or Streamix Calorie goal: 1500 2. Drink 48-64 ounces of non-caloric beverages per day. No fruit juices or regular soda Try crystal light, propel, zero calorie flavored water, plain water 3. Goal of 30 minutes of exercise 5 days per week (150 minutes per week--can be divided up however you would like) Aim for aerobic activity and muscle strengthening activities 4. Increase fruit and vegetable servings to 5-6 per day. 1/2 of your plate should be fruits and vegetables 5. Eat 100-200 calories within 1-2 hours of awakening, and every 4 - 6 hours while awake. (3 meals with snacks in between) Choose 100 calorie or less snacks, protein snacks 7. Weight yourself weekly and follow trend over time (day to day weight fluctuations can be discouraging) 8. Decrease starches like bread, pasta, cereal, potatoes and corn. Aim for of your plate Try substitutions like zoodles, lentil pasta, cauliflower mashed potatoes, whole grain foods, quinoa Limit junk/processed foods Chips, pretzels, cookies, cakes, sweets White bread/rolls/wraps/bagels, white rice 9. Increase protein to feel full longer (1/4 of your plate) Tracy was seen today for follow up. Diagnoses and all orders for this visit: Class 2 severe obesity due to excess calories with serious comorbidity and body mass index (BMI) of35.0 to 35.9 in adult (HCC) - Ozempic (0.25 or 0.5 MG/DOSE) 2 MG/3ML Solution Pen-injector (Semaglutide(0.25 or 0.5MG/DOS)); Inject 0.25mg under the skin once weekly for 4 weeks then increase to 0.5mg under the skin once weeklythereafter -switch to Ozempic - more consistently in stock -doing well with intake currently Abnormal weight gain Dyslipidemia, goal LDL below 130 -continue statin Primary adrenocortical insufficiency (HCC) -following with endocrinology -on hydrocortisone Mild carotid artery disease (HCC) Lupus erythematosus tumidus Tobacco use disorder -stop smoking - pt is cutting back Moderate episode of recurrent major depressive disorder (HCC) -continue current regimen -Remeron may be contributing to weight gain LEVI (generalized anxiety disorder) Gastro-esophageal reflux disease with esophagitis, without bleeding -continue PPI The patient agreed to try the plan as discussed and return in 1 months. They were encouraged to call or send a patient portal message in the meantime with any questions or concerns prior to their next clinic visit. I spent a total of 20 minutes on the date of service in preparation, delivery, and documentation ofthe care provided to Tracy Benavides excluding any time spent in the performance of separately billed services. This included but was no limited to providing counseling about the benefits of weight loss, about their nutritional status, detailed explanations about calorie count, types of nutrients to choose, and composition of the meals. Motivational interview provided in order to prepare the patient to achieve future goals. Tiara Gautam PA-C documented in this encounter Nursing Notes * Marah Saxena RN - 11/05/2023 11:41 AM EDT Chief Complaint Patient presents with Follow Up Pt here for follow up; concerns with medication availability and minimal weight loss; needs form filled out for medical assistance documented in this encounter Plan of Treatment Upcoming Encounters Date Type Department Care Team (Late st Contact Info) Description 11/06/2023 12:30 PM EDT Office Visit Gastroenterology [address] [place] [id number] Sheryl Low CRNP [address] [facility] [place] [address] 11/06/2023 3:20 PM EDT Immunization Ancillary [address] [place] [address] [place] [address] [place] [address] 11/12/2023 9:45 AM EDT Imaging Radiology [facility] [address] [place] [address] 11/13/2023 9:15 AM EDT Office Visit Dermatology [facility] [address] [place] [address] Adebayo Pressley MD [address] [place] [address] 11/25/2023 11:15 AM EDT Office Visit General Surgery, [place] [address] [place] [address] Swati Pond MD [address] [place], [place] [id number] 12/31/2023 8:40 AM EDT Office Visit Rheumatology [address] [place] [address] Isidro Phillips MD [address] [place] [address] [place] [address] 01/08/2024 12:20 PM EST Office Visit Interventional Pain Center, [facility] [address] [place] [address] Anni Gomez MD [address] [place] [address] 05/24/2024 9:00 AM EDT Office Visit Cardiology [address] [place] [address] Quinn Uriostegui PA-C [address] [place] [address] 10/18/2024 12:30 PM EDT Imaging Radiology [address] [place] [address] Scheduled Procedures Name Priority Associated Diagnoses Date/Ti me COLONOSCOPY FLEXIBLE PROXIMAL DIAGNOSTIC Recall History of colon polyps Health Maintenance Due Date Last Done Comments DISCUSS TOBACCO CESSATION (REFER TO SMARTSET #0413) 1965 COVID-19 Vaccine (#1) 1970 Hepatitis B [...] this encounter Medical Devices Implanted Type Area Home Care Giver Device Identifier Shelf Expiration Date Model / Serial / Lot [place] Arthrodesis Nail, Left Implanted:Qty: 1 on 06/10/2012 at OR [facility] Tissue - Non Human Left: Leg Upper ALFONZO 04/01/2016 [id number] S / / [id number] Screw Locking 1896-5035s - [id number] Implanted:Qty: 1 on 06/10/2012 at OR [facility] Left: Leg Upper ALFONZO : TRAUMA 08/29/2013 8556-8997 S / / [id number] Screw Locking 1896-5030s - [id number] Implanted:Qty: 1 on 06/10/2012 at OR [facility] ALFONZO : TRAUMA 04/29/2013 5725-7673 S / / [id number] Screw Threaded Lckg 5x42.5mm - [id number] Implanted:05/31 (Quantity not on file) Left: Leg Upper ALFONZO : ORTHOPAEDICS 12/31/2015 5972-9276 S / / [id number] Screw Locking 1896-5040s - [id number] Implanted:Qty: 1 on 06/10/2012 at OR [facility] Left: Leg Upper ALFONZO : TRAUMA 07/30/2014 2985-2379 S / / [id number] Screw Compression 1825-0000s - [id number] Implanted:Qty: 1 on 06/10/2012 at OR [facility] Left: Leg Upper ALFONZO : TRAUMA 12/30/2012 0619-3368 S / / [id number] Screw Shaft 1891-5045s - [id number] Implanted:Qty: 1 on 06/10/2012 at OR [facility] Left: Leg Upper ALFONZO : ORTHOPAEDICS 12/31/2015 1829-9647 S / / [id number] Mesh Vicryl 12 X 12 Vkm-L - [id number] Implanted:Qty: 1 on 04/25/2020 by Dejuan Kaufman MD at OR [facility] N/A: Abdomen JNJ : [employer] 04/29/2024 VKM-L / / [id number] Mesh Soft [id number] - [id number] Implanted:Qty: 1 on 04/25/2020 by Dejuan Kaufman MD at OR [facility] N/A: Abdomen CR BARD : DAVOL [id number] 07/27/2024 [id number] / / [id number] documented as of this encounter Visit Diagnoses [...] Directives occurred with: Not Discussed Care Teams [employer] French Teacher Relationship Specialty Start Date End Date Shazia Bee MD [address] [place] [address] [place] [address] PCP - General Family Medicine 10/30/23 documented as of this encounter
--- OUTSIDE RECORDS SUMMARY | 2024-04-01 20:51 | External Medical Summary | Summary of Care ---
Author Name Unknown Organization [facility] Address [address] [facility] [place] [address] Phone [phone] Care Team Providers Care Shift Lab Technician Name Role Phone Shazia Bee MD Primary Care Provide r Reason for Visit * Reason Onset Date Comments Medication Administration 11/06/2023 Flu an d/or Pneumo Inj Encounter Details Date Type Department Care Team (Late st Contact Info) Description 11/06/2023 3:20 PM EDT Immunization Ancillary [address] [place] [address] [place] [address] [place] [address] Need for prophylactic vaccination and inoculation against influenza* Allergies No known active allergiesdocumented as of [...] before bedtime. 180 Capsule 1 06/18/2023 Active rOPINIRole HCl 2 MG Oral Tablet (Requip)Indications: RLS (restless legs syndrome) TAKE ONE TABLET BY MOUTH ONCE DAILY IN THE EVENING 90 Tablet 08/10/2023 Active Hydroxychloroquine Sulfate 200 MG Oral Tablet [...] for pain.. 90 Tablet 1 10/30/2023 Active Ozempic (0.25 or 0.5 MG/DOSE) 2 MG/3ML Solution Pen-injector (Semaglutide(0.25 or 0.5MG/DOS)) Inject 0.25mg under the skin once weekly for 4 weeks then increase to 0.5mg under the skin once weekly thereafter 9 mL 1 11/05/2023 Active Lubiprostone 24 MCG Oral Capsule (Amitiza) [...] the tablet. 60 Tablet 1 11/06/2023 Active documented as of this encounter (statuses [...] PI: Dr. Shima Burns CRC- Keri Zaman ([phone]) [facility] CRC- Cate Trinidad ([phone]) [facility] CRC- Julia Villafana ([phone]) Diagnosis changed due to Research Module. Go to Snapshot for study details. Anxiety 04/26/2015 11/20/2016 Recurrent major depressive disorder 04/14/2014 06/21/2019 Adrenal insufficiency 12/12/20132016 FORCE TJR RESEARCH OTHER*[id number] 11/02/2013 03/19/2016 Overview: Patient has completed participation [...] Next Due Pneumococcal Conjugate Vacci ne, 20-valent ([id number]) 11/15/2021 Pneumococcal Polysaccharide PPV23 (Pneumovax) 06/26/2008 Seasonal [...] No 04/24/2020 documented as of this encounter Nursing Notes * Carly Anthony LPN - 11/06/2023 3:38 PM EDT Immunization Administration Documentation Time Out Procedure Performed: Yes Patient Identified (Ask Name/Date of ): Yes Does the patient have a fever greater than 101 degrees today? No Patient allergic to latex? No VFC Stock: No Immunization(s) verified: Yes, Immunization Name: Flu, VIS Sheet(s) given: Yes Verified Side and Site: Yes Verified Shot(s) with Parent(s)/Patient: Yes documented in this encounter Plan of Treatment Upcoming Encounters Date Type Department Care Team (Late st Contact Info) Description 11/12/2023 9:45 AM EDT Imaging Radiology [address] [address] 11/25/2023 11:15 AM EDT Office Visit General Surgery, [place] [address] [place] [address] Swati Pond MD [address] [place] [address] 12/31/2023 8:40 AM EDT Office Visit Rheumatology [place] [phone] [facility] [address] Isidro Phillips MD [facility] [place] [address] 01/08/2024 12:20 PM EST Office Visit Interventional Pain Center, [facility] [address] [place] [address] Anni Gomez MD [address] [place] [address] [place] [address] 05/24/2024 9:00 AM EDT Office Visit Cardiology [address] [place] [address] Quinn Uriostegui PA-C [address] [place] [address] 10/18/2024 12:30 PM EDT Imaging Radiology [address] [place] [address] Scheduled Procedures Name Priority Associated Diagnoses Date/Ti me COLONOSCOPY FLEXIBLE PROXIMAL DIAGNOSTIC Recall History of colon polyps Health Maintenance Due Date Last Done Comments DISCUSS TOBACCO CESSATION (REFER TO SMARTSET #5622) 1965 COVID-19 Vaccine (#1) 1970 Hepatitis B [...] 11/15/2021, 06/26/2008 Lung Cancer Screening Completed 01/15/2022 Influenza Vaccine (FLU shot) Completed 08/2023, 01/20/2023, 11/15/2021, Additional history exists HPV (Gardasil) Vaccine Aged Out No lo nger eligible based on patient's age to complete this topic MENINGOCOCCAL (MENACTRA/MENVEO) Aged Out No longer eligible based on patient's age to complete this topic documented as of this encounter Medical Devices Implanted Type Area Card Clothier Device Identifier Shelf Expiration Date Model / Serial / Lot Alfonzo Arthrodesis Nail, Left [place] [facility] [place] Human Left: Leg Upper ALFONZO 04/01/2016 [id number] S / / [id number] Screw Locking 1896-5035s - [id number] Implanted:Qty: 1 on [place]10[place] [facility] [place]: Leg Upper ALFONZO : TRAUMA 08/29/2013 7214-5083 S / / [id number] Screw Locking 1896-5030s - [id number] Implanted:Qty: 1 [place]10[place] [facility] [place]FONZO : TRAUMA 04/29/2013 5322-8897 S / / [id number] Screw Threaded Lckg 5x42.5mm - [id number] Implanted:05/31 (Quantity not on file) Left: Leg Upper ALFONZO : ORTHOPAEDICS 12/31/2015 1690-0452 S / / [id number] Screw Locking 1896-5040s - [id number] Implanted:Qty: 1 on 06/10[place] [facility] [place]: Leg Upper ALFONZO : TRAUMA 07/30/2014 0641-9740 S / / [id number] Screw Compression 1825-0000s - [id number] Implanted:Qty: 1 on 06/10/2012 at [facility] Left: Leg Upper ALFONZO : TRAUMA 12/30/2012 8182-3912 S / / [id number] Screw Shaft 1891-5045s - [id number] Implanted:Qty: 1 on 06/10/2012 [place] [facility] [place]: Leg Upper ALFONZO : ORTHOPAEDICS 12/31/2015 4869-7760 S / / [id number] Mesh Vicryl 12 X 12 Vkm-L - [id number] Implanted:Qty: 1 on 04/25/2020 by Dejuan Kaufman [place] [facility] [place]A: Abdomen JNJ : [employer] 04/29/2024 VKM-L / / [id number] Mesh Soft [id number] - [id number] Implanted:Qty: 1 on 04/25/2020 by Dejuan Kaufman [place] [facility] [place]A: Abdomen CR BARD : DAVOL [id number] 07/27/2024 [id number] / / [id number] documented as of this encounter Visit Diagnoses Diagnosis Need for prophylactic vaccination and inoculation against influenza- Primary documented in this encounter Advance Directives [...] Directives occurred with: Not Discussed Care Teams Shift Lab Technician Relationship Specialty Start Date End Date Shazia Bee MD [address] [place] [address] [place] [address] PCP - General Family Medicine 10/30/23 documented as of this encounter
--- OUTSIDE RECORDS SUMMARY | 2024-04-01 20:51 | External Medical Summary | Summary of Care ---
Author Name Unknown Organization [facility] Address [address] [facility] [place] [address] Phone [phone] Care Team Providers Care Outboard Motorboat Operator Name Role Phone Shazia Bee MD Primary Care Provide r Reason for Visit * Reason Onset Date Comments Precert Denied 11/06/2023 OZempic Encounter Details Date Type Department Care Team (Late st Contact Info) Description 11/06/2023 Telephone Nutrition & Weight Management, [facility] [address] [place] [address] Tiara Gautam PA-C [address] [place] [address] Precert Denied (OZempic) Allergies No known active [...] PI: Dr. Shima Burns CRC- Keri Zaman ([phone]) [facility]- Cate Trinidad ([phone]) [facility] CRC- Julia Villafana ([phone]) Diagnosis changed due to Research Module. Go to Snapshot for study details. Anxiety 04/26/2015 11/20/2016 Recurrent major depressive disorder 04/14/2014 06/21/2019 Adrenal insufficiency 12/12/20132016 [employer]CE [facility]JR RESEARCH OTHER*[id number] 11/02/2013 03/19/2016 Overview: Patient has completed participation [...] Next Due Pneumococcal Conjugate Vacci ne, 20-valent (Upvbmkz36) 11/15/2021 Pneumococcal Polysaccharide PPV23 (Pneumovax) 06/26/2008 Seasonal [...] auth end date: N/A Rx Insurance Info: [facility] [place] Reference #: n/a Julia Muhammad Medication Vp Sales II [facility] 11/18/23,11:58 AM . Type Date User Summary Attachment Precert 11/17/2023 8:34 AM Julia Muhammad OSA Submitted to secondary with exclusion letter. - Note: Submitted to secondary with exclusion letter. [facility] Authorization Submission Submission Information: Medication: ozempic Portal used: [facility] Insurance: [employer] Authorization #/Ray: [id number] . Type Date User Summary Attachment Precert 11/16/2023 2:59 PM Arina Malik OSA [employer] excludes medication. - Note: [employer] excludes medication. Message from Plan Request Reference Number: [id number]. OZEMPIC INJ 2MG/3ML is denied due to Plan Exclusion. For further questions, call . . Type Date User Summary Attachment Precert 11/09/2023 12:44 PM Julia Muhammad OSA [facility] Authorization Submission - Note: [facility] Authorization Submission Submission Information: Medication: Ozempic Portal used: [facility] Insurance: [employer] Medicare Authorization #/Ray: [id number] * Telephone Encounter - Arina Malik OSA - 11/16/2023 2:59 PM EDT Office reached out for update. [employer] excludes medication per [facility]. Message from Plan Request Reference Number: [id number]. OZEMPIC INJ 2MG/3ML is denied due to Plan Exclusion. For further questions, call . Julia may you try to submit to [facility] for review? Thank you Arina Malik Publishing Systems Analyst [facility] 11/16/2023,3:00 PM * Telephone Encounter - Anna Navarro CPhT - 11/06/2023 12:37 PM EDT New or re-auth: New Patient Tracy Benavides needs a prior authorization for a medication through their [employer] insurance. Medication: Ozempic 0.25/0.5 and 0.5/0.5 Formulation: sopn Dosage: Inject 0.25mg under the skin once weekly for 4 weeks then increase to 0.5mg under the skin once weekly thereafter ID: [id number] [id number] PCN:[id number] Phone: [phone] Target ship date is na. Thank you very much, Anna Navarro [facility] Manager Quality Compliance [facility] 11/06/2023,12:38 PM documented in this encounter Plan of Treatment Upcoming Encounters Date Type Department Care Team (Late st Contact Info) Description 11/25/2023 11:15 AM EDT Office Visit General Surgery, [place] [address] [facility] [place] [address] Swati Pond MD [address] [facility] [place] [address] 12/07/2023 10:00 AM EDT Office Visit Neurology [facility] [address] [place] [address] Bridget Argueta PA-C [address] [place] [address] 12/31/2023 8:40 AM EDT Office Visit Rheumatology [place] [address] [facility] [place] [address] Isidro Phillips MD [facility] [employer] [facility] [place] [address] 01/08/2024 12:20 PM EST Office Visit Interventional Pain Center, [facility] [address] [facility] [place] [address] Anni Gomez MD [address] [facility] [place] [address] 05/24/2024 9:00 AM EDT Office Visit Cardiology [address] [place] [address] Quinn Uriostegui PA-C [address] [place] [address] 10/18/2024 12:30 PM EDT Imaging Radiology [address] [place] [address] Scheduled Procedures Name Priority Associated Diagnoses Date/Ti me COLONOSCOPY FLEXIBLE PROXIMAL DIAGNOSTIC Recall History of colon polyps Health Maintenance Due Date Last Done Comments DISCUSS TOBACCO CESSATION (REFER TO SMARTSET #0282) 1965 COVID-19 Vaccine (#1) 1970 Hepatitis B [...] this encounter Medical Devices Implanted Type Area It Risk And Assurance Senior Manager Device Identifier Shelf Expiration Date Model / Serial / Lot [place] [place] Arthrodesis Nail, Left Implanted:Qty: 1 on 06/10/2012 at [place] [facility] [place] Tissue - Non Human Left: Leg Upper ALFONZO 04/01/2016 8675-9265 S / / [id number] Screw Locking 1896-5039s - [id number] Implanted:Qty: 1 on 06/10/2012 at [place] [facility] [place] Left: Leg Upper ALFONZO : TRAUMA 08/29/2013 3252-5446 S / / [id number] Screw Locking 1896-5030s - [id number] Implanted:Qty: 1 on 06/10/2012 at [place] [facility] [place] ALFONZO : TRAUMA 04/29/2013 8821-7405 S / / [id number] Screw Threaded Lckg 5x42.5mm - [id number] Implanted:05/31 (Quantity not on file) Left: Leg Upper ALFONZO : ORTHOPAEDICS 12/31/2015 3787-3608 S / / [id number] Screw Locking 1896-5040s - [id number] Implanted:Qty: 1 on 06/10/2012 at [place] [facility] [place] Left: Leg Upper ALFONZO : TRAUMA 07/30/2014 7446-0974 S / / [id number] Screw Compression 1825-0000s - [id number] Implanted:Qty: 1 on 06/10/2012 at [place] [facility] [place] Left: Leg Upper ALFONZO : TRAUMA 12/30/2012 2438-4827 S / / [id number] Screw Shaft 1891-5045s - [id number] Implanted:Qty: 1 on 06/10/2012 at [place] [facility] [place] Left: Leg Upper ALFONZO : ORTHOPAEDICS 12/31/2015 9712-2132 S / / [id number] Mesh Vicryl 12 X 12 Vkm-L - [id number] Implanted:Qty: 1 on 04/25/2020 by Dejuan Kaufman MD at [place] [facility] [place] N/A: Abdomen JNJ : [employer] 04/29/2024 VKM-L / / [id number] Mesh Soft [id number] - [id number] Implanted:Qty: 1 on 04/25/2020 by Dejuan Kaufman MD at [place] [facility] [place] N/A: Abdomen CR BARD : DAVOL [id number] 07/27/2024 [id number] / / [id number] documented as of this encounter Advance Directives [...] Directives occurred with: Not Discussed Care Teams Outboard Motorboat Operator Relationship Specialty Start Date End Date Shazia Bee MD [address] [place] [address] [place] [address] PCP - General Family Medicine 10/30/23 documented as of this encounter
--- OUTSIDE RECORDS SUMMARY | 2024-04-01 20:51 | External Medical Summary | Summary of Care ---
Author Name Unknown Organization [facility] Address [address] [facility] [place] [place] [address] Phone [phone] Care Team Providers Care Supervisor [employer] Name Role Phone Unavailable Primary Care Provider Unavailabl e Reason for Referral * Precert (Within 10 days (routine)) - Authorized Specialty Diagnoses / Procedures Referred By Contac t Referred To Contact Radiology Diagnoses History of tobacco abuse Procedures CT CHEST LOW DOSE SCAN LUNG CANCER SCREEN 1 YEAR FOLLOW UP LUNG CANCER SCREENING PROGRAM REFERRAL Shazia Bee MD [address] [place] [address] [place] [phone] Referral ID Status Reason Start Date Expiration Date V isits Requested Visits Authorized [id number] Authorized 10/30/2023 999 999 * Evaluate & Treat - Unlimited Visits (Within 10 days (routine)) - Authorized Specialty Diagnoses / Procedures Referred By Contac t Referred To Contact Pain Management / Pain Medicine Diagnoses Lumbar degenerative disc disease Spinal stenosis of lumbar region with neurogenic claudication DDD (degenerative disc disease), cervical Shazia Bee MD [address] [place] [address] [place] [phone] Referral ID Status Reason Start Date Expiration Date Visits Requested Visits Authorized [id number] Authorized Specialty Services Required 10/30/2023 999 999 Question Answer Referral Priority Within 10 days (routine) Where should this appointment be scheduled? [facility] Reason for referral? Interventional Pain Management - (Injection) What condition is the patient being referred for? Cervical Radiculopathy - and lumbar radiculopathy What is the preferred location to have this test performed? [facility] Comments Patient Name: Tracy Crews Date of : 1965 Department Phone Number: : [phone] (if unable to have a MRI) is recommended if any of the following apply: 1. Patient has neck or back pain with radiation to extremities. A previous MRI will be accepted if symptoms unchanged since prior MRI. 2. Spinal surgery since last MRI. If yes, order a MRI with and without contrast. 3. Hx or ongoing cancer treatment. Patient will need spine x-ray (Ap/Lat) for axial neck or back pain if not done previously. Fax No. [facility] [phone] or contact front office manager [phone] Fax No. [facility] [phone] or contact front office manager [phone] Fax No. [facility] [phone] or contact front office manager [phone] Reason for Visit * Reason Comments Acute Encounter Details Date Type Department Care Team (Latest Contact Info) Description 10/30/2023 9:20 AM EDT Office Visit Family Medicine [address] [phone] Shazia Bee MD [address] [place] [address] [place] [phone] Lumbar degenerative disc disease*; DDD (degenerative disc disease), cervical; Joint arthrodesis status; Ventral hernia without obstruction or gangrene; LEVI (generalized anxiety disorder); Spinal stenosis of lumbar region with neurogenic claudication; Lupus erythematosus tumidus; Moderate episode of recurrent major depressive disorder (HCC); Primary adrenocortical insufficiency (HCC); Orthostatic hypotension; History of tobacco abuse Allergies No known active allergiesdocumented as of this encounter (statuses as of 10/30/2023) Medications Medication Sig Dispensed Refills Start Date [...] Oral Tablet (Valtrex) as needed. 07/27/2021 Active DULoxetine HCl 60 MG Oral Capsule Delayed Release Particles (Cymbalta)Indication s:LEVI (generalized anxiety disorder),Moderate episode of recurrent major depressive disorder (HCC) Take by mouth 2 Capsules in the morning. 180 Capsule 1 11/15/2021 Active Pramoxine HCl 1 % External LotionIndications:Cu taneous lupus erythematosus Apply to back twice daily as needed (please provide lotion wand, pt lives alone) 222 mL 2 12/12/2021 [...] IN THE EVENING 90 Tablet 08/10/2023 Active Linzess 72 MCG Oral Capsule (linaCLOtide) TAKE 1 CAPSULE BY MOUTH DAILY BEFORE BREAKFAST 90 Capsule 3 08/13/2023 Active Hydroxychloroquine Sulfate 200 MG Oral Tablet (Plaquenil)Indicatio ns:Cutaneous lupus erythematosus 2 tablets each evening 180 Tablet 1 08/19/2023 Active Wegovy 0.25 MG/0.5ML Subcutaneous Solution Auto-injector (Semaglutide-Weight Management)Indicatio ns:Class 1 obesity due to excess calories with serious comorbidity and body mass index (BMI) of 31.0 to 31.9 in adult Inject 0.25 mg under the skin once a week. 2 mL 3 08/27/2023 Active Additional Information Patient not taking.Reported on 10/30/2023 Sucralfate 1 GM Oral Tablet (Carafate) TAKE [...] IN THE MORNING 90 Tablet 10/07/2023 Active Pantoprazole Sodium 40 MG Oral Tablet Delayed Release (Protonix)Indication s:Nausea and vomiting, unspecified vomiting type Take 1 Tablet by mouth in the morning. 30 minutes before the first meal of the day. Do not crush, split or chew the tablet. 30 Tablet 1 10/26/2023 Active Meloxicam 15 MG Oral Tablet (Mobic)Indications:L umbar degenerative disc disease,DDD (degenerative disc disease), cervical Take 1 Tablet by mouth in the morning. for pain.. 90 Tablet 1 10/30/2023 Active documented as of this encounter (statuses as of 10/30/2023) Active Problems Problem Noted Date Diagnosed Date [...] as of this encounter (statuses as of 10/30/2023) Resolved Problems Problem Noted Date Diagnosed Date [...] Dr. Shima De Jesus [facility]- Keri Zaman ([phone]) [facility]- Cate Trinidad ([phone]) [facility]- Julia Villafana ([phone]) Diagnosis changed due to Research Module. Go to Snapshot for study details. Anxiety 04/26/2015 11/20/2016 Recurrent major depressive disorder 04/14/2014 06/21/2019 Adrenal insufficiency 12/12/20132016 [facility] OTHER*[id number] 11/02/2013 03/19/2016 Overview: Patient has completed participation [...] as of this encounter (statuses as of 10/30/2023) Immunizations Name Administration Dates Next Due Pneumococcal Conjugate Vacci ne, 20-valent ([id number]) 11/15/2021 Pneumococcal Polysaccharide PPV23 (Pneumovax) 06/26/2008 Seasonal [...] Sign Reading Time Taken Comments Blood Pressure 112/76 10/30/2023 9:11 AM EDT Pulse 96 10/30/2023 9:11 AM EDT Temperature 36.5 C (97.7 F) 10/30/2023 9:11 AM ED T Respiratory Rate - - Oxygen Saturation 96% 10/30/2023 9:11 AM EDT Inhaled Oxygen Concentration - - Weight 93.9 kg (207 lb) 10/30/2023 9:11 AM EDT Height - - Body Mass Index 34.45 08/21/2023 11:06 AM EDT documented in this encounter Functional [...] No 04/24/2020 documented as of this encounter Patient Instructions * Patient Instructions* Sahzia Bee MD - 10/30/2023 9:42 AM EDT Tracy Crews [phone] Benefits of Quitting Smoking Why should I quit smoking? Smoking is bad for you and bad for others around you. Smoking causes cancer, heart attacks, hardening of the arteries, bronchitis, emphysema, cough, shortness of breath, wrinkles, and premature aging. It stains teeth and fingers, irritates the eyes, furs the tongue, and causes bad breath. People are living longer today than their parents did, so it makes sense to work on staying healthy and independent. One of the best ways to do this is to quit smoking. Benefits of quitting smoking It takes time to reverse many years' worth of smoking damage to your body, but some benefits of quitting smoking begin immediately. For example, you're financially better off on day one. Your health starts to improve right away, too, because you remove a former constant source of irritation from your lungs. People may comment that you no longer cough. Your blood circulation is likely to improve, so your hands and feet may feel warmer. Your teeth, breath, and fingers are no longer a turn-off. Benefits that you're less aware of also begin to occur. These include better resistance to colds and respiratory infections, less likelihood of major heart and circulation problems, less risk of high blood pressure or stroke, and less risk of developing cancer. The following arguments are often presented by smokers as justifications for their continuing to smoke: "I have to sometime, so I might as well enjoy life until then." True, but as a smoker you're much more likely to of a heart attack or cancer - neither of whichare very pleasant ways to go. "I'm only hurting myself." True, if you don't count the heartache and grief you may cause your loved ones by your early or permanent disability, or the damage of your smoke to others. "Lots of people who smoke live to ripe old ages in perfect health." True, but this is rare. Nearly all smokers have significant health problems. "Smoking is one of my pleasures. I don't want to quit." Smoking is associated with pleasure because the nicotine in tobacco is an addictive drug. Your bodywill continue to crave a regular supply until you can overcome the habit. Smoking is always a disadvantage to your health and that of your loved ones. "It's my choice and I choose to smoke." True. It is your choice. In a survey of older former smokers, more than 90% quit on their own because they decided to do so. The main reasons they gave for quitting were wanting to stay healthy, following health care provider's advice, regaining control of their lives, and making a loved one happy . [place] Department of Health Quit Line ercan [employer] Free Quitline 5-658 QUIT NOW ( ) Your insurance company may also have more information and helpful programs to help you quit. Some may even help cover some of the costs. For example, [facility] members can call to find out about their smoking cessation program and medication coverage. Developed by Michelle Contreras MD, for [employer]. Published by [employer]. Last modified: 2005-07-11 Last reviewed: 2005-04-30 This content is reviewed periodically and is subject to change as new health information becomes available. The information is intended to inform and educate and is not a replacement for medical evaluation, advice, diagnosis or treatment by a healthcare professional. Adult Health Advisor 2006.4 Index Adult Health Advisor 2006.4 Credits Copyright 2006 [employer] and/or one of its subsidiaries. All Rights Reserved. documented in this encounter Progress Notes * Shazia Bee MD - 10/30/2023 9:22 AM EDT Subjective: Tracy Crews is a 57 year old female. Chief Complaint Patient presents with Acute HPI: Brief Clinical History Ms. Crews is a 57 year old female last seen in Family Medicine [facility] on 07/20/2023 by Christel Baker She has a h/o the following chronic conditions indicated on the problem list: Chronic Conditions None Having a lot of neck and low back pain. States she was told she needed to have neck surgery but shedoes not want to pursue this. Has had injections in the past that helped. Is also having low back pain, for which injections have been helpful. Has previously seen Dr. Bansal and would like to return to [facility] for injections. Is on gabapentin 600 mg TID, Baclofen, and Cymbalta for pain. Wondering if she can take anything else for the pain. Was referred to general surgery in [place] for ventral hernia but could not afford the gas so she canceled. Needs scheduled for a new appointment. Is having pain across the left side of her abdomen. Having monthly infusions for lupus and also on hydroxychloroquine for lupus. She is following with rheumatology and dermatology. She is having the infusions done at the [facility] monthly. She is following with hematology at [facility] for elevated hemoglobin. Has been having a lot of labs done but has not been started on anything or gotten a specific diagnosis. She is a smoker. Is overdue for low dose lung cancer screening. It was scheduled this spring but was canceled because her insurance would not cover it. She now has Medicare. Is still smoking and has smoked since she was a teenager. Is not interested in quitting. Following with endocrinology for adrenal insufficiency. Was determined her thyroid nodule that was biopsied in 2012 and was benign and has not changed in 10 years so no further follow-up needed for it at this time. She is on hydrocortisone and is to stress dose when ill. She is also on midodrine for orthostasis. Still coping with losing her 5 years ago. Has good days and bad days. Is on mirtazapine, Trazodone, buspirone, hydroxyzine, and Duloxetine. Following with weight management. Had lost a lot of weight on Wegovy and was stopped. Gained the weight back and it was restarted but is now on back order. CBC Results: Results for orders placed or performed in visit on 09/15/22 CBC Result Value Ref Range WBC 9.13 4.00 - 10.80 K/uL RBC 5.70 3.85 - 5.15 M/uL HGB 16.5 (H) 12.0 - 15.3 g/dL HCT 49.7 (H) 36.0 - 45.2 % MCV 87.2 81.5 - 97.5 fL MCH 28.9 27.0 - 34.0 pg MCHC 33.2 32.0 - 36.0 g/dL RDW 15.0 11.5 - 15.5 % PLT 347 140 - 400 K/uL MPV 10.4 6.6 - 11.1 fL nRBCs 0 <=0 /100 WBCs Lab Results Component Value Date/Time TSH - [facility] 1.04 03/31/2023 01:35 PM TSH - [facility] 1.19 08/07/2022 03:36 PM TSH - [facility] 1.35 05/24/2020 10:09 AM TSH - [facility] 0.63 2019 10:03 PM TSH - [facility] 0.39 06/08/2018 09:56 AM TSH - [facility] 1.25 03/10/2017 10:44 AM TSH - [facility] 1.120 01/19/2023 12:00 AM TSH - [facility] 2.030 08/10/2017 12:00 AM Basic Panel Results: Results for orders placed or performed during the hospital encounter of 04/24/20 BASIC METABOLIC PANEL Result Value Ref Range BUN 4 (L) 6 - 20 mg/dL Creatinine 0.8 0.5 - 1.0 mg/dL Estimated Glomerular Filtration Rate 83.9 >=60.0 mL/min Sodium 139 135 - 146 mmol/L Potassium 3.4 (L) 3.5 - 5.1 mmol/L Chloride 102 98 - 107 mmol/L CO2 28 22 - 32 mmol/L Anion Gap 9 7 - 15 mmol/L Glucose 95 70 - 120 mg/dL Calcium 9.4 8.4 - 10.2 mg/dL ALT Results: Lab Results Component Value Date/Time ALT - [facility] 22 03/31/2023 01:35 PM ALT - [facility] 26 09/15/2022 01:12 PM ALT - [facility] 36 (H) 05/08/2022 12:12 PM ALT - [facility] 41 (H) 10/19/2019 11:43 AM ALT - [facility] 66 (H) 09/21/2019 02:19 PM ALT - [facility] 39 (H) 08/31/2019 08:07 AM Lipid Panel Results: Results for orders placed or performed in visit on 10/08/23 LIPID PANEL WITH DIRECT LDL IF TG IS HIGH Result Value Ref Range Triglycerides 203 (H) <=174 mg/dL Cholesterol 192 <200 mg/dL HDL Cholesterol 79 >49 mg/dL Non-HDL Cholesterol 113 <=159 mg/dL Results for orders placed or performed in visit on 10/08/23 LIPID PANEL WITH DIRECT LDL IF TG IS HIGH Result Value Ref Range Triglycerides 203 (H) <=174 mg/dL Cholesterol 192 <200 mg/dL HDL Cholesterol 79 >49 mg/dL Non-HDL Cholesterol 113 <=159 mg/dL MYCODE SST1 Result Value Ref Range MyCode Specimen Freezing of extracted DNA, whole blood and/or serum. MYCODE SST2 Result Value Ref Range MyCode Specimen Freezing of extracted DNA, whole blood and/or serum. LDL CHOLESTEROL (DIRECT MEASURE) Result Value Ref Range LDL Cholesterol (Direct Measure) 83 <=129 mg/dL *Note: Due to a large number of results and/or encounters for the requested time period, some results have not been displayed. A complete set of results can be found in Results Review. PHM: Patient Active Problem List Diagnosis Reflex sympathetic [...] Encounter for long-term (current) use of medications Current Outpatient Medications Medication Sig Dispense Refill [...] 1 GM Oral Tablet (Valtrex) as needed. DULoxetine HCl 60 MG Oral Capsule Delayed Release Particles (Cymbalta) Take by mouth 2 Capsules in the morning. 180 Capsule 1 Pramoxine HCl 1 % External Lotion Apply [...] MOUTH IN THE MORNING 90 Tablet 0 Pantoprazole Sodium 40 MG Oral Tablet Delayed Release (Protonix) Take 1 Tablet by mouth in the morning. 30 minutes before the first meal of the day. Do not crush, split or chew the tablet. 30 Tablet 1 Meloxicam 15 MG Oral Tablet (Mobic) Take 1 Tablet by mouth in the morning. for pain.. 90 Tablet 1 Wegovy 0.25 MG/0.5ML Subcutaneous Solution Auto-injector (Semaglutide-Weight Management) Inject 0.25 mg under the skin once a week. (Patient not taking: Reported on 10/30/2023) 2 mL 3 No current facility-administered medications for this visit. Past Medical History: Diagnosis Date [place]'s disease (HCC) Cervical radiculopathy Cervical spinal stenosis [...] performed by Mart Kyle MD at [facility] COLOSTOMY N/A 11/11/2019 COLOSTOMY performed by Dejuan Kaufman MD at [facility] DRAINAGE OF RECTAL ABSCESS, DEEP Bilateral 11/11/2019 INCISION AND DRAINAGE DEEP RECTAL ABSCESS performed by Dejuan Kaufman MD at [facility] EGD, FLEXIBLE, DIAGNOSTIC 01/06/2022 ESOPHAGOGASTRODUODENOSCOPY (EGD), FLEXIBLE, TRANSORAL, DIAGNOSTIC performed by Mart Kyle MD at [facility] EGD, W/ENDOSCOPIC US N/A 09/06/2019 dilation CBD, sludge CBD/small amount of food in esophagus/ESOPHAGOGASTRODUODENOSCOPY (EGD), FLEXIBLE, TRANSORAL, ENDOSCOPIC ULTRASOUND performed by Mart Kyle MD at OR [facility] EGD, W/ENDOSCOPIC US 01/06/2022 Normal scope, evid of cholecystectomy, pancreatic paranchymal abnormalities consisting of diffuse echogenicity / no specimens collected / ESOPHAGOGASTRODUODENOSCOPY (EGD), FLEXIBLE, TRANSORAL, ENDOSCOPIC ULTRASOUND performed by Mart Kyle MD at [facility] ENDOSCOPY, ERCP, W/BIOPSY 10/19/2019 Choledocholithiasis, stent removed / ENDOSCOPIC RETROGRADE CHOLANGIOPANCREATOGRAPHY (ERCP) BIOPSY performed by Mart Kyle MD at [facility] ERCP, DIAGNOSTIC, SPECIMEN COLLECTION N/A 09/06/2019 biliary papillary stenosis/1 plastic pancreatic stent ventral pancreatic duct/1 plastic biliary stent CBD/repeat 6 weeks/ENDOSCOPIC RETROGRADE CHOLANGIOPANCREATOGRAPHY (ERCP) DIAGNOSTIC performed by Mart Kyle MD at OR [facility] FUSION OF KNEE 06/10/2012 ARTHRODESIS KNEE performed by Marcellus Vallecillo MD at OR [facility] IMPLANT MESH W/ ABD HERNIA REPR/DEBRIDE N/A 04/25/2020 IMPLANTATION MESH WITH INCISIONAL/VENTRAL HERNIA performed by Dejuan Kaufman MD at OR [facility] INFORMATION left knee surgery INJECT DX/THER SUBSTANCE [...] SPINE LUMBAR OR SACRAL performed by Heriberto Bansal DO at OR [facility] KNEE ARTHROSCOPY/SURGERY LAPAROSCOPY DIAGNOSTIC 11/11/2019 LAPAROSCOPY DIAGNOSTIC performed by Dejuan Kaufman MD at [facility] LAPAROSCOPY; CHOLECYSTECTOMY 10/24/2019 LUMBAR / SACRAL EPIDURAL, SINGLE LEVEL 06/28/2018 INJECTION TRANSFORAMINAL EPIDURAL LUMBAR OR SACRAL performed by Heriberto Bansal DO at OR [facility] MUSCLE/FASCIA DEBRIDEMENT, FIRST 20 CM2 Right 2019 DEBRIDEMENT SKIN SUBCUTANEOUS TISSUE AND MUSCLE performed by Dejuan Kaufman MD at [facility] REMOVAL OF SMALL INTESTINE W/FUSION N/A 04/25/2020 ENTERECTOMY SMALL BOWEL RESECTION performed by Dejuan Kaufman MD at [facility] REMOVE FOOT TENDON LESION Right 04/14/2019 EXCISION LESION TENDON FOOT performed by Sana Burgos DPM at OR [facility] REPAIR BOWEL OPENING N/A 04/25/2020 CLOSURE ENTEROSTOMY performed by Dejuan Kaufman MD at [facility] REPAIR INITIAL INCISIONAL OR VENTRAL HERNIA; REDUCIBLE N/A 04/25/2020 REPAIR INITIAL INCISIONAL /VENTRAL HERNIA REDUCIBLE performed by Dejuan Kaufman MD at OR [facility] SACROILIAC JOINT INJECT W/GUIDANCE 12/18/2021 INJECTION SACROILIAC JOINT performed by Heriberto Bansal DO at OR [facility] SACROILIAC JOINT INJECT W/GUIDANCE 02/19/2022 INJECTION SACROILIAC JOINT performed by Heriberto Bansal DO at OR [facility] SPINE SURGERY PROCEDURE NEC 11/2020 SUBQ DEBRIDEMENT, FIRST 20 CM2 N/A 11/05/2019 DEBRIDEMENT SKIN AND SUBCUTANEOUS TISSUE performed by Williams Barrientos MD at OR [facility] TOTAL ABD HYSTERECTOMY W/WO REMOVAL OF TUBE(S) 01/2004 has left ovary Social History Socioeconomic History Marital status: Spouse name: Will Number of children: 3 Years of education: Not on file Highest education level: Not on file Occupational History Employer: [employer] Tobacco Use Smoking status: Every Day Current packs/day: 0.50 Average packs/day: 0.5 packs/day for 42.0 years (21.0 ttl pk-yrs) Types: Cigarettes Smokeless tobacco: Never Vaping Use Vaping status: Never Used Substance and Sexual Activity Alcohol use: Not Currently Drug use: No Sexual activity: Yes Partners: Male Other Topics Concern Not on file Social History Narrative Not on file Social Determinants of Health Financial Resource Strain: Low Risk (10/23/2023) Financial Resource Strain Do you have any trouble paying for your medications, or do you think you might in the future? (Adult - for ages 18 years and over): No Does your family have trouble paying for medicine? (Household - for ages 0-17 years): Not on file Food Insecurity: No Food Insecurity (10/23/2023) Food Insecurity Do you need food for this week? (Adult - for ages 18 years and over): No Are you able to get enough food for your family? (Household - for ages 0-17 years): Not on file Does your family need food this week? (Household - for ages 0-17 years): Not on file Do you always have enough food for your family? (Household - for ages 0-17 years): Not on file Recent Concern: Food Insecurity - Food Insecurity Present (10/23/2023) Hunger Vital Sign Worried About Running Out of Food in the Last Year: Never true Ran Out of Food in the Last Year: Sometimes true Transportation Needs: No Transportation Needs (10/23/2023) Transportation Needs Do you have trouble getting a ride to medical visits or work? (Adult - for ages 18 years and over):Never True Does your family have a hard time getting a ride to doctors visits? (Household - for ages 0-17 years): Not on file Has lack of transportation kept you from medical appointments, meetings, work, or from getting things needed for daily living? Check all that apply. (Adult - for ages 18 years and over): No Do you (or your family) have trouble finding or paying for a ride (transportation)? (Household - for ages 0-17 years): Not on file Social Connections: Socially Integrated (10/23/2023) Social Connections How often do you feel lonely or isolated from those around you? (Adult - for ages 18 years and over): Sometimes Housing Stability: Low Risk (10/23/2023) Housing Stability Do you currently live in a senior care or have no steady place to sleep at night? (Adult - for ages 18 years and over): No Do you think you are at risk of becoming homeless? (Adult - for ages 18 years and over): No Does your family worry about paying for your home or becoming homeless? (Household - for ages 0-17 years): Not on file Are you homeless or worried that you might be in the future? (Adult - for ages 18 years and over): No Are you (or your family) homeless or worried that you might be in the future? (Household - for ages0-17 years): Not on file Review of patient's allergies indicates: No Known Allergies Objective: BP 112/76 | Pulse 96 | Temp 36.5 C (97.7 F) (Tympanic) | Wt 93.9 kg (207 lb) | SpO2 96% | BMI 34.45 kg/m | BSA 2.08 m Physical Exam: General: alert, no distress, well nourished, and well developed Head: Normocephalic, No masses, lesions, tenderness or abnormalities Eye Exam: PERRLA, extraocular movements intact, conjunctiva are pink and non- injected, sclera clear Ears: External ears normal Nose: no mucosal erythema, no mucosal edema, no purulent discharge Oropharynx: no exudate, no erythema, lips, buccal mucosa, and tongue normal, and mucous membranes are moist Neck: supple, no adenopathy Heart: regular rate & rhythm, no murmur, and no gallops Lungs: chest symmetric with normal AP diameter, no chest deformities noted, no chest wall tenderness, lungs clear to auscultation, decreased breath sounds Abdomen: abdomen soft, normal bowel sounds, no masses or organomegaly, and +several healed scars and tenderness over left side of abdomen Back: Some limitation of flexion Extremities: no edema, no clubbing, no cyanosis, +left knee fused in extended position Neuro Exam: alert & oriented x 3 with fluent speech, no focal motor/sensory deficits Extensive ROS Constitutional (f/c/wt/vision/hearing): see above hpi Resp (cough/sob/olivarez): see above hpi CV (cp/palp/fluttering/diaphoresis/olivarez/pnd):Orthostatic hypotension GI (n/v/d/hrtburn): Negative Endo (hair/cold or heat intol/ 3 p's): see above hpi Neuro (shaking/weak/fatigu/parasthesi/): see above hpi Skin (rash/easy bruis/xerosis): Negative Psy (si/hi/halluc/): see above hpi (nocturia/hesit/drib/sexual review): Negative Lymph (swollen glands/b sx's/: Negative ASSESSMENT: Lumbar degenerative disc disease (Primary)--patient with ongoing neck and back pain. Has done well with injections in the past. Does not want spine surgery. Add Meloxicam to pain regimen. - PAIN MEDICINE REFERRAL OP - Meloxicam 15 MG Oral Tablet (Mobic); Take 1 Tablet by mouth in the morning. for pain.. DDD (degenerative disc disease), cervical--as above - PAIN MEDICINE REFERRAL OP - Meloxicam 15 MG Oral Tablet (Mobic); Take 1 Tablet by mouth in the morning. for pain.. Joint arthrodesis status--has fused left knee Ventral hernia without obstruction or gangrene--will reschedule with general surgery in [place]. LEVI (generalized anxiety disorder)--continue buspirone, Duloxetine, and mirtazapine. Spinal stenosis of lumbar region with neurogenic claudication--as above - PAIN MEDICINE REFERRAL OP Lupus erythematosus tumidus--following with dermatology ad on hydroxychloroquine. Also follows withrheumatology for monthly infusions. Moderate episode of recurrent major depressive disorder (HCC)--continue Duloxetine 120 mg daily, mirtazapine, and Trazodone Primary adrenocortical insufficiency (HCC)--following with endocrinology. On hydrocortisone and midodrine Orthostatic hypotension--continue midodrine. History of tobacco abuse--due for low dose lung cancer screening CT. Not ready to quit smoking. - CT CHEST LOW DOSE SCAN LUNG CANCER SCREEN 1 YEAR FOLLOW UP; Future; Expected date: 10/30/2023 Follow Up: Return in about 6 months (around 04/29/2024) for Clinic Visit. | For: Clinic Visit | Check-out note: Needs rescheduled with general surgery in [place] for ventral hernia. Referral placed in June PLAN: Continue present medication(s): Begin medication(s): Meloxicam 15 mg daily for pain Study(ies) ordered: Low dose lung cancer screening CT Referral(s) to: Pain medicine for injections of back and neck if appropriate. Will reschedule with general surgery regarding ventral hernia. Patient education: Discussed referrals and specialist visits. Reviewed recommendation on thyroid nodule, which has been stable since benign biopsy in 2013 and no further follow-up recommended at thistime. Discussed low dose lung cancer screening CT and smoking cessation. Discussed hepatitis B vaccine and will consider getting it if covered by insurance. Follow up: in 6 month(s). Shazia Bee MD The following information was reviewed/discussed with the patient: Benefits & harms of screening Potential indications for follow-up testing, if/when necessary Risk of over-diagnosis, false positive findings, and radiation exposure Importance of cigarette smoking abstinence, if applicable Annual adherence to lung cancer screening Impact of comorbidities and ability or willingness to undergo diagnostic testing and/or treatment if something concerning is identified during screening. documented in this encounter Nursing Notes * Cyndee Flores LPN - 10/30/2023 9:10 AM EDT Follow up on pain Has a lot of pain Referral to pain management Seeing weight management next week Cannot get Wegovy currently documented in this encounter Plan of Treatment Upcoming Encounters Date Type Department Care Team (Late st Contact Info) Description 11/05/2023 11:40 AM EDT Office Visit Nutrition & Weight Management, [facility] [address] [place] [address] Tiara Gautam PA-C [address] [place] [address] 11/13/2023 9:15 AM EDT Office Visit Dermatology [facility] [place] [facility] [place] [address] Adebayo Pressley MD 200 [facility] [place] [address] 11/25/2023 11:15 AM EDT Office Visit General Surgery, [address] [address] Swati Pond MD [address] [place] [address] 12/31/2023 8:40 AM EDT Office Visit Rheumatology [place] [address] [facility] [place] [address] Isidro Phillips MD [address] [place] [address] [place] [address] 01/01/2024 12:00 PM EDT Office Visit Gastroenterology [address] [place] [address] Sheryl Low CRNP [address] [place] [address] 01/08/2024 12:20 PM EST Office Visit Interventional Pain Center, [facility] [address] [place] [address] Anni Gomez MD [address] [place] [address] 05/24/2024 9:00 AM EDT Office Visit Cardiology [address] [place] [address] Quinn Uriostegui PA-C [address] [place] [address] 10/18/2024 12:30 PM EDT Imaging Radiology [address] [place] [address] Scheduled Orders Name Type Priority Associated Diagnoses Orde r Schedule CT CHEST LOW DOSE SCAN LUNG CANCER SCREEN 1 YEAR FOLLOW UP Medical Imaging Routine History of tobacco abuse Expected: 10/30/2023, Expires: 10/29/2025 Scheduled Procedures Name Priority Associated Diagnoses Date/Ti [...] this encounter Medical Devices Implanted Type Area Forepart Laster Device Identifier Shelf Expiration Date Model / Serial / Lot [place] Arthrodesis Nail, Left Implanted:Qty: 1 on 06/10/2012 at OR [facility] Tissue - Non Human Left: Leg Upper ALFONZO 04/01/2016 4504-3105 S / / [id number] Screw Locking 1896-5035s - [id number] Implanted:Qty: 1 on 06/10/2012 at OR [facility] Left: Leg Upper ALFONZO : TRAUMA 08/29/2013 1710-5906 S / / [id number] Screw Locking 1896-5030s - [id number] Implanted:Qty: 1 on 06/10/2012 at OR [facility] ALFONZO : TRAUMA 04/29/2013 9011-6999 S / / [id number] Screw Threaded Lckg 5x42.5mm - [id number] Implanted:05/31 (Quantity not on file) Left: Leg Upper ALFONZO : ORTHOPAEDICS 12/31/2015 3442-5822 S / / [id number] Screw Locking 1896-5040s - [id number] Implanted:Qty: 1 on 06/10/2012 at OR [facility] Left: Leg Upper AFLONZO : TRAUMA 07/30/2014 9224-3592 S / / [id number] Screw Compression 1825-0000s - [id number] Implanted:Qty: 1 on 06/10/2012 at OR [facility] Left: Leg Upper ALFONZO : TRAUMA 12/30/2012 4198-8180 S / / [id number] Screw Shaft 1891-5045s - [id number] Implanted:Qty: 1 on 06/10/2012 at OR [facility] Left: Leg Upper ALFONZO : ORTHOPAEDICS 12/31/2015 3198-8370 S / / [id number] Mesh Vicryl 12 X 12 Vkm-L - [id number] Implanted:Qty: 1 on 04/25/2020 by Dejuan Kaufman MD at OR [facility] N/A: Abdomen JNJ : [employer] 04/29/2024 VKM-L / / [id number] Mesh Soft [id number] - [id number] Implanted:Qty: 1 on 04/25/2020 by Dejuan Kaufman MD at OR [facility] N/A: Abdomen CR BARD : ASHTYN [id number] 07/27/2024 [id number] / / [id number] documented as of this encounter Visit Diagnoses Diagnosis Lumbar degenerative disc disease- Primary Degeneration of lumbar or lumbosacral intervertebral disc DDD (degenerative disc disease), cervical Degeneration of cervical intervertebral disc Joint arthrodesis status Arthrodesis status Ventral hernia without obstruction or gangrene Ventral hernia, unspecified, without mention of obstruction or gangrene LEVI (generalized anxiety disorder) Generalized anxiety disorder Spinal stenosis of lumbar region with neurogenic claudication Spinal stenosis, lumbar region, with neurogenic claudication Lupus erythematosus tumidus Lupus erythematosus Moderate episode of recurrent major depressive disorder (HCC) Primary adrenocortical insufficiency (HCC) Glucocorticoid deficiency Orthostatic hypotension History of tobacco abuse Personal history of tobacco use, presenting hazards to health documented in this encounter Advance Directives * [...]
--- OUTSIDE RECORDS SUMMARY | 2024-04-01 20:51 | External Medical Summary | Summary of Care ---
Author Name Unknown Organization [facility] Address [address] [facility] [place] [address] Phone [phone] Care Team Providers Care Sewing Department Supervisor Name Role Phone Shazia Bee MD Primary Care Provide r Reason for Visit * Reason Onset Date Comments Medication Refill 11/10/2023 Encounter Details Date Type Department Care Team (Late st Contact Info) Description 11/10/2023 Refill Nutrition & Weight Management, [facility] [address] [place] [address] Tiara Gautam PA-C [address] [place] [address] Allergies No known active allergiesdocumented as of this encounter (statuses as of 11/10/2023) Medications Medication Sig Dispensed Refills Start Date [...] IN THE EVENING 90 Tablet 4 Active Hydroxychloroquine Sulfate 200 MG Oral [...] for pain.. 90 Tablet 1 4 Active Lubiprostone 24 MCG Oral Capsule [...] the tablet. 60 Tablet 1 4 Active Ozempic (0.25 or 0.5 MG/DOSE) 2 MG/3ML Solution Pen-injector (Semaglutide(0.25 or 0.5MG/DOS)) Inject 0.25mg under the skin once weekly for 4 weeks then increase to 0.5mg under the skin once weekly thereafter 9 mL 1 4 Active Ozempic (0.25 or 0.5 MG/DOSE) 2 MG/3ML Solution Pen-injector (Semaglutide(0.25 or 0.5MG/DOS)) Inject 0.25mg under the skin once weekly for 4 weeks then increase to 0.5mg under the skin once weekly thereafter 9 mL 1 4 11/10/19 24 Discontinu ed(Refill) documented as of this encounter (statuses as of 11/10/2023) Active Problems Problem Noted Date Diagnosed Date [...] as of this encounter (statuses as of 11/10/2023) Resolved Problems Problem Noted Date Diagnosed Date [...] [facility]- Keri Zaman ([phone]) [facility]- Cate Trinidad ([phone]) [facility] Julia Villafana ([phone]) Diagnosis changed due to Research Module. Go to Snapshot for study details. Anxiety 04/26/2015 11/20/2016 Recurrent major depressive disorder 04/14/2014 06/21/2019 Adrenal insufficiency 12/12/20132016 FORCE TJR RESEARCH OTHER*[id number] 11/02/2013 03/19/2016 Overview: Patient has completed participation [...] as of this encounter (statuses as of 11/10/2023) Immunizations Name Administration Dates Next Due Pneumococcal Conjugate Vacci ne, 20-valent ([id number]) 11/15/2021 Pneumococcal Polysaccharide PPV23 (Pneumovax) 06/26/2008 Seasonal [...] encounter Miscellaneous Notes * Telephone Encounter - Reyna Espinosa RPh - 11/10/2023 11:07 AM EDT Pt requested transfer to [facility] pharmacy. Janice Espinosa, Pharm.D. Clinical Specialty Pharmacist [facility] 11/10/2023, 11:07 AM documented in this encounter Plan of Treatment Upcoming Encounters Date Type Department Care Team (Late st Contact Info) Description 11/12/2023 9:45 AM EDT Imaging Radiology [address] 132 [place] [address] 11/25/2023 11:15 AM EDT Office Visit General Surgery, [place] [address] [place] [address] Swati Pond MD [address] [facility] [place] [address] 12/31/2023 8:40 AM EDT Office Visit Rheumatology [place] [address] [place] [address] Isidro Phillips MD [address] [email or web address] [address] 01/08/2024 12:20 PM EST Office Visit Interventional Pain Center, [facility] [address] [place] [address] Anni Gomez MD [address] [place] [address] 05/24/2024 9:00 AM EDT Office Visit Cardiology [address] [place] [address] Quinn Uriostegui PA-C [address] [place] [address] 10/18/2024 12:30 PM EDT Imaging Radiology [address] [place] [address] Scheduled Procedures Name Priority Associated Diagnoses Date/Ti me COLONOSCOPY FLEXIBLE PROXIMAL DIAGNOSTIC Recall History of colon polyps Health Maintenance Due Date Last Done Comments DISCUSS TOBACCO CESSATION (REFER TO SMARTSET #0180) 1965 COVID-19 Vaccine (#1) 1970 Hepatitis B [...] this encounter Medical Devices Implanted Type Area Applications Tester Device Identifier Shelf Expiration Date Model / Serial / Lot [place] Arthrodesis Nail, Left Implanted:Qty: 1 on 06/10/2012 at OR [facility] Tissue - Non Human Left: Leg Upper ALFONZO 04/01/2016 9624-8915 S / / [id number] Screw Locking 1896-5035s - [id number] Implanted:Qty: 1 on 06/10/2012 at OR [facility] Left: Leg Upper ALFONZO : TRAUMA 08/29/2013 0527-8760 S / / [id number] Screw Locking 1896-5030s - [id number] Implanted:Qty: 1 on 06/10/2012 at OR [facility] ALFONZO : TRAUMA 04/29/2013 8527-9152 S / / [id number] Screw Threaded Lckg 5x42.5mm - [id number] Implanted:05/31 (Quantity not on file) Left: Leg Upper ALFONZO : ORTHOPAEDICS 12/31/2015 7740-7400 S / / [id number] Screw Locking 1896-5040s - [id number] Implanted:Qty: 1 on 06/10/2012 at OR [facility] Left: Leg Upper ALFONZO : TRAUMA 07/30/2014 4949-8654 S / / [id number] Screw Compression 1825-0000s - [id number] Implanted:Qty: 1 on 06/10/2012 at OR [facility] Left: Leg Upper ALFONZO : TRAUMA 12/30/2012 9968-8151 S / / [id number] Screw Shaft 1891-5045s - [id number] Implanted:Qty: 1 on 06/10/2012 at OR [facility] Left: Leg Upper ALFONZO : ORTHOPAEDICS 12/31/2015 1929-7768 S / / [id number] Mesh Vicryl 12 X 12 Vkm-L - [id number] Implanted:Qty: 1 on 04/25/2020 by Dejuan Kaufman MD at OR [facility] N/A: Abdomen JNJ : [employer] 04/29/2024 VKM-L / / [id number] Mesh Soft [id number] - [id number] Implanted:Qty: 1 on 04/25/2020 by Dejuan Kaufman MD at OR [facility] N/A: Abdomen CR BARD : DAVOL [id number] 07/27/2024 [id number] / / [id number] documented as of this encounter Advance Directives [...] Directives occurred with: Not Discussed Care Teams Sewing Department Supervisor Relationship Specialty Start Date End Date Shazia Bee MD [address] [place] [address] [place] [address] PCP - General Family Medicine 10/30/23 documented as of this encounter
--- OUTSIDE RECORDS SUMMARY | 2024-04-01 20:51 | External Medical Summary | Summary of Care ---
Author Name Unknown Organization [facility] Address [address] [place] [address] Phone [phone] Care Team Providers Care Manager Meat Name Role Phone Shazia Bee MD Primary Care Provide r Reason for Visit * Reason Comments eRx-Medication Refill Encounter Details Date Type Department Care Team (Late st Contact Info) Description 11/06/2023 Refill Neurology [facility] [place] [address] [place] [address] Cesar Castro MD [address] [place] [address] RLS (restless legs syndrome) Allergies [...] THE EVENING 90 Tablet 11/10/19 24 Active Lubiprostone 24 MCG Oral Capsule [...] [facility]- Keri Zaman ([phone]) [facility]- Cate Trinidad ([phone]) [facility]- Julia Villafana ([phone]) Diagnosis changed due to Research Module. Go to Snapshot for study details. Anxiety 04/26/2015 11/20/2016 Recurrent major depressive disorder 04/14/2014 06/21/2019 Adrenal insufficiency 12/12/20132016 [employer]CE TJR RESEARCH OTHER*[id number] 11/02/2013 03/19/2016 Overview: Patient has completed participation [...] Next Due Pneumococcal Conjugate Vacci ne, 20-valent ([id number]) 11/15/2021 Pneumococcal Polysaccharide PPV23 (Pneumovax) 06/26/2008 Seasonal [...] encounter Miscellaneous Notes * Telephone Encounter - Cesar Castro MD - 11/10/2023 4:04 PM EDTSigned Prescriptions: Disp Refills rOPINIRole HCl 2 MG Oral Tablet (Requip) 90 Tab*0 Sig: TAKE ONE TABLET BY MOUTH ONCE DAILY IN THE EVENING Authorizing Provider: CESAR CASTRO * Telephone Encounter - Mona Joyce LPN - 11/10/2023 1:56 PM EDT Pending Prescriptions: Disp Refills rOPINIRole HCl 2 MG Oral Tablet [Pharmacy *90 Tab*0 Sig: TAKE ONE TABLET BY MOUTH ONCE DAILY IN THE EVENING * Telephone Encounter - Xochitl Zurita, assistant professor of german - 11/10/2023 11:56 AM EDT Pending Prescriptions: Disp Refills rOPINIRole HCl 2 MG Oral Tablet [Pharmacy *90 Tab*0 Sig: TAKE ONE TABLET BY MOUTH ONCE DAILY IN THE EVENING * Telephone Encounter - Xochitl Zurita assistant professor of german - 11/10/2023 11:32 AM EDT Received message from [facility] regarding patient needing an appointment. Call Placed warm transfer to neuro scheduling Appt scheduled for 12/07/2023 Thank you for your assistance Xochitl Zurita Physical Ther II [facility] 11/10/2023,11:32 AM * Telephone Encounter - Interface, E-Rx Ss Inbound - 11/10/2023 6:02 AM EDT Pending Prescriptions: Disp Refills rOPINIRole HCl 2 MG Oral Tablet [Pharmacy *90 Tab*0 Sig: TAKE ONE TABLET BY MOUTH ONCE DAILY IN THE EVENING * Telephone Encounter - Jose Armando Lund [facility] - 11/09/2023 9:23 AM EDTPending Prescriptions: Disp Refills rOPINIRole HCl 2 MG Oral Tablet [Pharmacy *90 Tab*0 Sig: TAKE ONE TABLET BY MOUTH ONCE DAILY IN THE EVENING * Telephone Encounter - Jose Armando Lund RPh - 11/09/2023 9:22 AM EDT 3rd attempt Please contact patient so that an appointment can be scheduled with her NEUROLOGY provider before this refill can be authorized. After contacting patient, please forward request to [email or web address] [phone]. Last Visit: 03/18/2022 (in office), Visit date not found (telemedicine) Next Visit: Visit date not found Venkatesh Avila, PharmD Clinical Pharmacist [facility] [phone] 11/09/2023 9:22 AM * Telephone Encounter - Interface, E-Rx Ss Inbound - 11/08/2023 6:02 AM EDT Pending Prescriptions: Disp Refills rOPINIRole HCl 2 MG Oral Tablet [Pharmacy *90 Tab*0 Sig: TAKE ONE TABLET BY MOUTH ONCE DAILY IN THE EVENING documented in this encounter Plan of Treatment Upcoming Encounters Date Type Department Care Team (Late st Contact Info) Description 11/12/2023 9:45 AM EDT Imaging Radiology [address], [place] 132 [facility] [place] [address] 11/25/2023 11:15 AM EDT Office Visit General Surgery, [place] [address] [place] [address] Swati Pond MD [address] [place] [address] 12/07/2023 10:00 AM EDT Office Visit Neurology [facility] [address] [place] [address] Bridget Argueta PA-C [address] [place] [address] 12/31/2023 8:40 AM EDT Office Visit Rheumatology [facility] [address] [facility] [place] [address] Isidro Phillips MD [address] [facility] [place] [address] 01/08/2024 12:20 PM EST Office Visit Interventional Pain Center, [facility] 132 [facility] [place] [address] Anni Gomez MD [address] [place] [address] 05/24/2024 9:00 AM EDT Office Visit Cardiology [address] [place] [address] Quinn Uriostegui PA-C 132 [facility] [place] [address] 10/18/2024 12:30 PM EDT Imaging Radiology [address] [place] [address] Scheduled Procedures Name Priority Associated Diagnoses Date/Ti me COLONOSCOPY FLEXIBLE PROXIMAL DIAGNOSTIC Recall History of colon polyps Health Maintenance Due Date Last Done Comments DISCUSS TOBACCO CESSATION (REFER TO SMARTSET #0597) 1965 COVID-19 Vaccine (#1) 1970 Hepatitis B [...] this encounter Medical Devices Implanted Type Area Research Physiologist Device Identifier Shelf Expiration Date Model / Serial / Lot [place] Arthrodesis Nail, Left Implanted:Qty: 1 on 06/10/2012 at OR [facility] Tissue - Non Human Left: Leg Upper ALFONZO 04/01/2016 9333-2361 S / / [id number] Screw Locking 1896-5035s - [id number] Implanted:Qty: 1 on 06/10/2012 at OR [facility] Left: Leg Upper ALFONZO : TRAUMA 08/29/2013 3851-1221 S / / [id number] Screw Locking 1896-5030s - [id number] Implanted:Qty: 1 on 06/10/2012 at OR [facility] ALFONZO : TRAUMA 04/29/2013 1490-5553 S / / [id number] Screw Threaded Lckg 5x42.5mm - [id number] Implanted:05/31 (Quantity not on file) Left: Leg Upper ALFONZO : ORTHOPAEDICS 12/31/2015 0466-4724 S / / [id number] Screw Locking 1896-5040s - [id number] Implanted:Qty: 1 on 06/10/2012 at OR [facility] Left: Leg Upper ALFONZO : TRAUMA 07/30/2014 0821-7650 S / / [id number] Screw Compression 1825-0000s - [id number] Implanted:Qty: 1 on 06/10/2012 at OR [facility] Left: Leg Upper ALFONZO : TRAUMA 12/30/2012 4007-2910 S / / [id number] Screw Shaft 1891-5045s - [id number] Implanted:Qty: 1 on 06/10/2012 at OR [facility] Left: Leg Upper ALFONZO : ORTHOPAEDICS 12/31/2015 8697-0194 S / / [id number] Mesh Vicryl 12 X 12 Vkm-L - [id number] Implanted:Qty: 1 on 04/25/2020 by Dejuan Kaufman MD at OR [facility] N/A: Abdomen JNJ : [employer] 04/29/2024 VKM-L / / [id number] Mesh Soft 22n91cc - [id number] Implanted:Qty: 1 on 04/25/2020 by Dejuan Kaufman MD at OR [facility] N/A: Abdomen CR BARD : DAVOL [id number] 07/27/2024 [id number] / / [id number] documented as of this encounter Visit Diagnoses [...] Directives occurred with: Not Discussed Care Teams Manager Meat Relationship Specialty Start Date End Date Shazia Bee MD [address] [place] [address] [place] [phone] PCP - General Family Medicine 10/30/23 documented as of this encounter
--- OUTSIDE RECORDS SUMMARY | 2024-04-01 20:52 | External Medical Summary | Summary of Care ---
Author Name Unknown Organization [facility] Address [address] [place] [address] Phone [phone] Care Team Providers Care Bedspread Inspector Name Role Phone Shazia Bee MD Primary Care Provide r Encounter Details Date Type Department Care Team (Latest Contact Info) Description 10/22/2022 1:30 PM EDT - 10/22/2022 11:59 PM EDT Hospital Encounter Radiology Film File [address] [place] [address] Discharge Disposition: Home - Self Care Allergies No known active allergiesdocumented as of this encounter (statuses as of 10/24/2023) Medications Medication Sig Dispensed Refills Start Date [...] on tongue. 30 Tablet 5 05/06/2022 Active documented as of this encounter (statuses as of 10/24/2023) Active Problems Problem Noted Date Diagnosed Date [...] as of this encounter (statuses as of 10/24/2023) Resolved Problems Problem Noted Date Diagnosed Date [...] assay failure rates. Contacts: PI: Dr. Shima WANG Keri Zaman ([phone]) [facility] CRC- Cate Vivi ([phone]) [facility] CRC- Julia Villafana ([phone]) Diagnosis changed due to Research Module. Go to Snapshot for study details. Anxiety 04/26/2015 11/20/2016 Recurrent major depressive disorder 04/14/2014 06/21/2019 Adrenal insufficiency 12/12/20132016 FORCE TJR RESEARCH OTHER*[id number] 11/02/2013 03/19/2016 Overview: Patient has completed participation [...] as of this encounter (statuses as of 10/24/2023) Immunizations Name Administration Dates Next Due Pneumococcal Conjugate Vacci ne, 20-valent (Onsctkd26) 11/15/2021 Pneumococcal Polysaccharide PPV23 (Pneumovax) 06/26/2008 Seasonal Influenza, PF, 6 M & above, IM , (FluLaval or Fluzone) 11/15/2021,12/04/2020,11/22/2019,12/17,11/19/2017,11/20/2016 Seasonal Influenza, Quadriva lent, No Preserve, IM [...] 9:20 AM EDT Office Visit Family Medicine [address] [place] [phone] Shazia Bee MD [address] [place] [address] [place] [address] 11/05/2023 11:40 AM EDT Office Visit Nutrition & Weight Management, [facility] [address] [place] [address] Tiara Gautam PA-C [address] [place] [address] 11/13/2023 9:15 AM EDT Office Visit Dermatology [facility] [address] [facility] [place] [address] Adebayo Pressley MD [address] [facility] [place] [address] 12/31/2023 8:40 AM EDT Office Visit Rheumatology [place] [phone] [facility] [place] [address] Isidro Phillips MD [facility] [place] [address] 01/01/2024 12:00 PM EDT Office Visit Gastroenterology [address] [place] [address] Sheryl Low CRNP [address] [place] [address] 05/24/2024 9:00 AM EDT Office Visit Cardiology [address] [place] [address] Quinn Uriostegui PA-C [address] [place] [address] 10/18/2024 12:30 PM EDT Imaging Radiology [address] [place] [address] Scheduled Procedures Name Priority Associated Diagnoses Date/Ti me COLONOSCOPY FLEXIBLE PROXIMAL DIAGNOSTIC Recall History of colon polyps Health Maintenance Due Date Last Done Comments DISCUSS TOBACCO CESSATION (REFER TO SMARTSET #5414) 1965 COVID-19 Vaccine (#1) 1970 Hepatitis B Vaccine (1 of 3 - 19+ 3-dose series) 1984 Fecal Occult Blood Test 2010 Sigmoidoscopy 2010 Depression Monitoring 12/12/2020 12/13/2019 Cologuard 06/02/2021 06/02/2018 Colonoscopy 04/24/2023 04/24/2020, 04/24/2020 Colorectal Cancer Screening 04/24/2023 Mammogram 10/23/2023 10/22/2022, 07/0 03/2021, 08/30/2021, Additional history exists Influenza Vaccine (FLU shot) (#1) 2023 01/20/2023, 11/15/2021, 12/04/2020, Additional history exists Diabetes Screening 08/20/2026 08/21/2023, [...] this encounter Medical Devices Implanted Type Area Guest Services Officer Device Identifier Shelf Expiration Date Model / Serial / Lot [place] Arthrodesis Nail, Left Implanted:Qty: 1 on 06/10/2012 at [place] [facility] [place] Tissue - Non Human Left: Leg Upper ALFONZO 04/01/2016 [id number] S / / [id number] Screw Locking 1896-5032s - [id number] Implanted:Qty: 1 on 06/10/2012 at [place] [facility] [place] Left: Leg Upper ALFONZO : TRAUMA 08/29/2013 5517-0030 S / / [id number] Screw Locking 1896-5030s - [id number] Implanted:Qty: 1 on 06/10/2012 at [place] [facility] [place] ALFONZO : TRAUMA 04/29/2013 0271-1645 S / / [id number] Screw Threaded Lckg 5x42.5mm - [id number] Implanted:05/31 (Quantity not on file) Left: Leg Upper ALFONZO : ORTHOPAEDICS 12/31/2015 9343-1655 S / / [id number] Screw Locking 1896-5040s - [id number] Implanted:Qty: 1 on 06/10/2012 at OR [facility] [place] Left: Leg Upper ALFONZO : TRAUMA 07/30/2014 3589-4347 S / / [id number] Screw Compression 1825-0000s - [id number] Implanted:Qty: 1 on 06/10/2012 at [place] [facility] [place] Left: Leg Upper ALFONZO : TRAUMA 12/30/2012 9097-0177 S / / [id number] Screw Shaft 1891-5045s - [id number] Implanted:Qty: 1 on 06/10/2012 at [place] [facility] [place] Left: Leg Upper ALFONZO : ORTHOPAEDICS 12/31/2015 1838-1726 S / / [id number] Mesh Vicryl 12 X 12 Vkm-L - [id number] Implanted:Qty: 1 on 04/25/2020 by Dejuan Kaufman MD at OR [facility] [place] N/A: Abdomen JNJ : [employer] 04/29/2024 VKM-L / / [id number] Mesh Soft [id number] - [id number] Implanted:Qty: 1 on 04/25/2020 by Dejuan Kaufman MD at OR [facility] [place] N/A: Abdomen CR BARD : DAVOL [id number] 07/27/2024 [id number] / / [id number] documented as of this encounter Procedures Procedure Name Priority Date/Time Associated Diagnosis Comments RADIOLOGY EXAM - MAMMOGRAPHY (IMAGES ONLY, NO REPORT) Routine 10/22/2022 1:30 PM EDT documented in this encounter Results * RADIOLOGY EXAM - MAMMOGRAPHY (IMAGES ONLY, NO REPORT) (10/22/2022 1:30 PM EDT) 10/22/2022 1:27 PM EDT Narrative Scheduling, Silent - 10/23/2023 2:37 PM EDT This is an imaging study not interpreted or resulted by a [facility] or [facility] contracted radiologist. Lizzie Cortes Rika SLATER APPRENTICE RAD MAMMOGRAPHY documented in this encounter Advance Directives * [...] Directives occurred with: Not Discussed Care Teams Bedspread Inspector Relationship Specialty Start Date End Date Shazia Bee MD [address] [place] [address] [place] [address] PCP - General Family Medicine 08/22/13 09/11/23 documented as of this encounter
--- OUTSIDE RECORDS SUMMARY | 2024-04-01 20:52 | External Medical Summary | Summary of Care ---
Author Name Unknown Organization [facility] Address [address] [facility] [place] [address] Phone [phone] Care Team Providers Care Sales Assistant Displays Name Role Phone Unavailable Primary Care Provider Unavailabl e Reason for Visit * Reason Comments eRx-Medication Refill Encounter Details Date Type Department Care Team (Late st Contact Info) Description 10/03/2023 Refill Family Medicine [address] [place] [address] Shazia Bee MD [address] [place] [address] [place] [address] Encounter for long-term (current) use of medications*; Bilateral lower extremity edema; Dyslipidemia, goal LDL below 130 Allergies No known active allergiesdocumented as of this encounter (statuses as of 10/07/2023) Medications Medication Sig Dispensed Refills Start Date [...] before bedtime 270 Tablet 1 4 Active Pantoprazole Sodium 40 MG Oral Tablet Delayed Release (Protonix)Indicati ons:Nausea and vomiting, unspecified vomiting type Take 1 Tablet by mouth in the morning. 30 minutes before the first meal of the day. Do not crush, split or chew the tablet. 30 Tablet 4 Active Furosemide 40 MG Oral Tablet (Lasix)Indications :Bilateral lower extremity edema TAKE ONE TABLET BY MOUTH DAILY NEEDED for swelling 90 Tablet 4 Active Atorvastatin Calcium 40 MG Oral Tablet (Lipitor) TAKE ONE TABLET BY MOUTH IN THE MORNING 90 Tablet 4 Active Atorvastatin Calcium 40 MG Oral Tablet (Lipitor) TAKE 1 TABLET BY MOUTH EVERY MORNING 90 Tablet 1 3 10/07/19 24 Discontinued Furosemide 40 MG Oral Tablet (Lasix)Indications :Bilateral lower extremity edema TAKE ONE TABLET BY MOUTH DAILY NEEDED for swelling 90 Tablet 1 4 10/07/19 24 Discontinued documented as of this encounter (statuses as of 10/07/2023) Active Problems Problem Noted Date Diagnosed Date [...] as of this encounter (statuses as of 10/07/2023) Resolved Problems Problem Noted Date Diagnosed Date [...] [facility]- Keri Zaman ([phone]) [facility] CRC- Cate Trinidad ([phone]) [facility] CRC- Julia Villafana ([phone]) Diagnosis changed due to Research Module. Go to Snapshot for study details. Anxiety 04/26/2015 11/20/2016 Recurrent major depressive disorder 04/14/2014 06/21/2019 Adrenal insufficiency 12/12/20132016 FORCE TJR RESEARCH OTHER*[id number] 11/02/2013 03/19/2016 Overview: Patient has completed participation [...] as of this encounter (statuses as of 10/07/2023) Immunizations Name Administration Dates Next Due Pneumococcal Conjugate Vacci ne, 20-valent (Draybsf19) 11/15/2021 Pneumococcal Polysaccharide PPV23 (Pneumovax) 06/26/2008 Seasonal [...] encounter Miscellaneous Notes * Telephone Encounter - Lorena Baker PA-C - 10/07/2023 8:47 AM EDTSigned Prescriptions: Disp Refills Furosemide 40 MG Oral Tablet (Lasix) 90 Tab*0 Sig: TAKE ONE TABLET BY MOUTH DAILY NEEDED for swelling Authorizing Provider: LORENA BAKER Atorvastatin Calcium 40 MG Oral Tablet (Li*90 Tab*0 Sig: TAKE ONE TABLET BY MOUTH IN THE MORNING Authorizing Provider: LORENA BAKER * Telephone Encounter - Interface, E-Rx Ss Inbound - 10/07/2023 6:03 AM EDT Pending Prescriptions: Disp Refills Furosemide 40 MG Oral Tablet (Lasix) 90 Tab*0 Sig: TAKE ONE TABLET BY MOUTH DAILY NEEDED for swelling Atorvastatin Calcium 40 MG Oral Tablet (Li*90 Tab*0 Sig: TAKE ONE TABLET BY MOUTH IN THE MORNING * Telephone Encounter - Interface, E-Rx Ss Inbound - 10/05/2023 6:03 AM EDT Pending Prescriptions: Disp Refills Furosemide 40 MG Oral Tablet (Lasix) 90 Tab*0 Sig: TAKE ONE TABLET BY MOUTH DAILY NEEDED for swelling Atorvastatin Calcium 40 MG Oral Tablet (Li*90 Tab*0 Sig: TAKE ONE TABLET BY MOUTH IN THE MORNING * Telephone Encounter - Cathy Holden [facility] - 10/04/2023 11:20 AM EDT Pending Prescriptions: Disp Refills Furosemide 40 MG Oral Tablet (Lasix) 90 Tab*0 Sig: TAKE ONE TABLET BY MOUTH DAILY NEEDED for swelling Atorvastatin Calcium 40 MG Oral Tablet (Li*90 Tab*0 Sig: TAKE ONE TABLET BY MOUTH IN THE MORNING * Telephone Encounter - Cathy Holden [facility] - 10/04/2023 11:19 AM EDT Patient has no PCP under whom to authorize refills. Please approve if appropriate. Thank you, Cathy Holden [facility] Clinical Pharmacist [facility] ([facility]) 10/04/23 11:19 AM [phone] * Telephone Encounter - Cathy Holdenog [facility] - 10/04/2023 11:14 AM EDT Did you pend patient's preferred pharmacy and medication before forwarding?yes Pharmacy: [id number] [id number] [facility] Pending Prescriptions: Disp Refills Furosemide 40 MG Oral Tablet (Lasix) [Pha*90 Tab*0 Sig: TAKE ONE TABLET BY MOUTH DAILY NEEDED for swelling Atorvastatin Calcium 40 MG Oral Tablet (L*90 Tab*0 Sig: TAKE ONE TABLET BY MOUTH IN THE MORNING Last Visit: 07/20/2023 (in office), Visit date not found (telemedicine) Next Visit: Visit date not found If no future appointments scheduled, and last appointment is greater than a year ago, please schedule patient for a follow-up appointment Last date the medication was ordered: 04/03/2023; 07/13/2022 Is this request for a controlled substance?No [...] 12:00 AM TSH 0.63 2019 10:03 PM LDLCALC 82 05/02/2022 01:19 PM LDLCALC 104 04/01/2019 03:51 PM LDLDIRECT 140 (H) 04/16/2020 09:59 AM LDLDIRECT NOT APPLICABLE 04/01/2019 03:51 PM ALT 22 03/31/2023 01:35 PM ALT 41 (H) 10/19/2019 11:43 AM HGBA1C 5.7 (H) 03/31/2023 01:35 PM HGBA1C 5.4 11/02/2013 12:36 PM documented in this encounter Plan of Treatment Upcoming Encounters Date Type Department Care Team (Late st Contact Info) Description 10/08/2023 9:00 AM EDT Office Visit Cardiology [address] [place] [address] Quinn Uriostegui PA-C [address] [place] [address] 10/15/2023 12:30 PM EDT Imaging Radiology [address] [place] [address] 11/13/2023 9:15 AM EDT Office Visit Dermatology [facility] [address] [facility] [place] [address] Adebayo Pressley MD [address] [facility] [place] [address] 11/16/2023 10:40 AM EDT Office Visit Nutrition & Weight Management, [facility] [address] [place] [address] Tiara Gautam PA-C [address] [place] [address] 12/31/2023 8:40 AM EDT Office Visit Rheumatology [place] [address] [facility] [place] [address] Isidro Phillips MD [facility] [facility] [place] [address] 02/19/2024 9:30 AM EST Office Visit Gastroenterology [address] [place] [address] Sheryl Low CRNP [address] [place] [address] Scheduled Orders Name Type Priority Associated Diagnoses Orde r Schedule LIPID PANEL WITH DIRECT LDL IF TG IS HIGH Lab Routine Encounter for long-term (current) use of medications Dyslipidemia, goal LDL below 130 Expected: 10/18/2023 (Approximate), Expires: 10/04/2024 Scheduled Procedures Name Priority Associated Diagnoses Date/Ti me COLONOSCOPY FLEXIBLE PROXIMAL DIAGNOSTIC Recall History of colon polyps Health Maintenance Due Date Last Done Comments DISCUSS TOBACCO CESSATION (REFER TO SMARTSET #0544) 1965 COVID-19 Vaccine (#1) 1970 Hepatitis B [...] 08/21/2023, 0 06/22/2023, 03/31/2023, Additional history exists Lipid Panel 05/03/2027 05/02/2022, 03/03, 01/22/2021, Additional history exists DTaP,Tdap,and Td Vaccines (3 - Td or Tdap) 06/08/2028 06/08/2018, 08/27/2007 Zoster Vaccines Completed 05/31/2019, 04/01/2019 Pneumococcal Vaccine: [...] Expiration Date Model / Serial / Lot [place] Arthrodesis Nail, Left Implanted:Qty: 1 on 06/10/2012 at OR [facility] [place] Tissue - Non Human Left: Leg Upper ALFONZO 04/01/2016 [id number] S / / [id number] Screw Locking 1896-5035s - [id number] Implanted:Qty: 1 on 06/10/2012 at OR [facility] [place] Left: Leg Upper ALFONZO : TRAUMA 08/29/2013 5156-1419 S / / [id number] Screw Locking 1896-5030s - [id number] Implanted:Qty: 1 on 06/10/2012 at OR [facility] [place] ALFONZO : TRAUMA 04/29/2013 2540-6341 S / / [id number] Screw Threaded Lckg 5x42.5mm - [id number] Implanted:05/31 (Quantity not on file) Left: Leg Upper ALFONZO : ORTHOPAEDICS 12/31/2015 6508-1516 S / / [id number] Screw Locking 1896-5040s - [id number] Implanted:Qty: 1 on 06/10/2012 at OR [facility] [place] Left: Leg Upper ALFONZO : TRAUMA 07/30/2014 [id number] S / / [id number] Screw Compression 1825-0000s - [id number] Implanted:Qty: 1 on 06/10/2012 at OR [facility] [place] Left: Leg Upper ALFONZO : TRAUMA 12/30/2012 [id number] S / / [id number] Screw Shaft 1891-5045s - [id number] Implanted:Qty: 1 on 06/10/2012 at OR [facility] [place] Left: Leg Upper ALFONZO : ORTHOPAEDICS 12/31/2015 2835-2810 S / / [id number] Mesh Vicryl 12 X 12 Vkm-L - [id number] Implanted:Qty: 1 on 04/25/2020 by Dejuan Kaufman MD at OR [facility] [place] N/A: Abdomen JNJ : [employer] 04/29/2024 VKM-L / / [id number] Mesh Soft [id number] - [id number] Implanted:Qty: 1 on 04/25/2020 by Dejuan Kaufman MD at OR [facility] [place] N/A: Abdomen CR BARD : [id number] 07/27/2024 [id number] / / [id number] documented as of this encounter Visit Diagnoses Diagnosis Encounter for long-term (current) use of medications- Primary Encounter for long-term (current) use of other medications Bilateral lower extremity edema Edema Dyslipidemia, goal LDL below 130 Other and unspecified hyperlipidemia documented in this encounter Advance Directives * [...]
--- OUTSIDE RECORDS SUMMARY | 2024-04-01 20:52 | External Medical Summary | Summary of Care ---
Author Name Unknown Organization [facility] Address [address] [place] [address] Phone [phone] Care Team Providers Care Materials Management Manager Name Role Phone Unavailable Primary Care Provider Unavailabl e Reason for Visit * Reason Comments Follow Up Encounter Details Date Type Department Care Team (Late st Contact Info) Description 10/08/2023 9:00 AM EDT Office Visit Cardiology [address] [place] [address] Quinn Uriostegui, PAOpalC [address] [place] [address] Palpitations*; Hypotension, unspecified hypotension type; Mild carotid artery disease (HCC); Dyslipidemia, goal LDL below 100 Allergies No known active allergiesdocumented as of this encounter (statuses as of 10/11/2023) Medications Medication Sig Dispensed Refills Start Date [...] a week. 2 mL 3 08/27/2023 Active Sucralfate 1 GM Oral Tablet (Carafate) [...] before bedtime 270 Tablet 1 09/14/2023 Active Pantoprazole Sodium 40 MG Oral Tablet Delayed Release (Protonix)Indication s:Nausea and vomiting, unspecified vomiting type Take 1 Tablet by mouth in the morning. 30 minutes before the first meal of the day. Do not crush, split or chew the tablet. 30 Tablet 09/25/2023 Active Furosemide 40 MG Oral Tablet (Lasix)Indications:B ilateral lower extremity edema TAKE ONE TABLET BY MOUTH DAILY NEEDED for swelling 90 Tablet 10/07/2023 Active Atorvastatin Calcium 40 MG Oral Tablet (Lipitor) TAKE ONE TABLET BY MOUTH IN THE MORNING 90 Tablet 10/07/2023 Active documented as of this encounter (statuses as of 10/11/2023) Active Problems Problem Noted Date Diagnosed Date [...] as of this encounter (statuses as of 10/11/2023) Resolved Problems Problem Noted Date Diagnosed Date [...] [facility]- Keri Zaman ([phone]) [facility]- Cate Trinidad ([phone]) [facility]- Juliasole Villafana ([phone]) Diagnosis changed due to Research Module. Go to Snapshot for study details. Anxiety 04/26/2015 11/20/2016 Recurrent major depressive disorder 04/14/2014 06/21/2019 Adrenal insufficiency 12/12/20132016 [facility]CE [facility] RESEARCH OTHER*[id number] 11/02/2013 03/19/2016 Overview: Patient has completed participation [...] as of this encounter (statuses as of 10/11/2023) Immunizations Name Administration Dates Next Due Pneumococcal Conjugate Vacci ne, 20-valent ([id number]) 11/15/2021 Pneumococcal Polysaccharide PPV23 (Pneumovax) 06/26/2008 Seasonal [...] 03/30/2023 Does the household have a re lar [...] Sign Reading Time Taken Comments Blood Pressure 106/64 10/08/2023 8:52 AM EDT Pulse 100 10/08/2023 8:52 AM EDT Temperature - - Respiratory Rate 16 10/08/2023 8:52 AM EDT Oxygen Saturation 94% 10/08/2023 8:52 AM EDT RA Inhaled Oxygen Concentration - - Weight 93.4 kg (206 lb) 10/08/2023 8:52 AM EDT Height - - Body Mass Index 34.28 08/21/2023 11:06 AM EDT documented in this [...] as of this encounter Progress Notes * Quinn Uriostegui PA-C - 10/08/2023 9:08 AM EDT History of Present Illness: Tracy Benavides is a 57 year old female here today for routine cardiology follow-up. Two weeks ago, around 11 or 12 at night, she got up out of bed and went to the kitchen table to drink water and smoke a cigarettes. She got up from the kitchen table, while talking to her granddaughter, and had a fall/near syncope episode. No seizure, tongue biting, or incontinence. No true syncope. She take furosemide as needed, last about 3-4 months ago. Stable palpitations, prior Zio revealing symptoms in association with sinus and sinus tachycardia. No chest pain or discomfort No unusual shortness of breath. No orthopnea or PND. No fevers or chills. No night sweats. No epistaxis, hemoptysis, melena, hematochezia, or hematuria. Patient Active Problem List Diagnosis Reflex sympathetic [...] Encounter for long-term (current) use of medications Past Medical History: Diagnosis Date Trigg's disease (HCC) Cervical radiculopathy Cervical spinal stenosis [...] performed by Mart Kyle MD at [facility] COLOSTOMY N/A 11/11/2019 COLOSTOMY performed by Dejuan Kaufman MD at [facility] DRAINAGE OF RECTAL ABSCESS, DEEP Bilateral 11/11/2019 INCISION AND DRAINAGE DEEP RECTAL ABSCESS performed by Dejuan Kaufman MD at [facility] EGD, FLEXIBLE, DIAGNOSTIC 01/06/2022 ESOPHAGOGASTRODUODENOSCOPY (EGD), FLEXIBLE, TRANSORAL, DIAGNOSTIC performed by Mart Kyle MD at [facility] EGD, W/ENDOSCOPIC US N/A 09/06/2019 dilation CBD, sludge CBD/small amount of food in esophagus/ESOPHAGOGASTRODUODENOSCOPY (EGD), FLEXIBLE, TRANSORAL, ENDOSCOPIC ULTRASOUND performed by Mart Kyle MD at OR [facility] EGD, W/ENDOSCOPIC US 01/06/2022 Normal scope, evid of cholecystectomy, pancreatic paranchymal abnormalities consisting of diffuse echogenicity / no specimens collected / ESOPHAGOGASTRODUODENOSCOPY (EGD), FLEXIBLE, TRANSORAL, ENDOSCOPIC ULTRASOUND performed by Mart Kyle MD at [facility] ENDOSCOPY, ERCP, W/BIOPSY 10/19/2019 Choledocholithiasis, stent removed / ENDOSCOPIC RETROGRADE CHOLANGIOPANCREATOGRAPHY (ERCP) BIOPSY performed by Mart Kyle MD at [facility] ERCP, DIAGNOSTIC, SPECIMEN COLLECTION N/A 09/06/2019 biliary papillary stenosis/1 plastic pancreatic stent ventral pancreatic duct/1 plastic biliary stent CBD/repeat 6 weeks/ENDOSCOPIC RETROGRADE CHOLANGIOPANCREATOGRAPHY (ERCP) DIAGNOSTIC performed by Mart Kyle MD at OR [facility] FUSION OF KNEE 06/10/2012 ARTHRODESIS KNEE performed by Marcellus Vallecillo MD at [facility] IMPLANT MESH W/ ABD HERNIA REPR/DEBRIDE N/A 04/25/2020 IMPLANTATION MESH WITH INCISIONAL/VENTRAL HERNIA performed by Dejuan Kaufman MD at [facility] INFORMATION left knee surgery INJECT DX/THER SUBSTANCE INTERLAMINAR CERVICAL/THORACIC W IMAGE GUIDE 08/20/2022 INJECTION SPINE LUMBAR CERVICAL OR THORACIC performed by [place] Isidro Bansal, DO at OR [facility] INJECT DX/THER SUBSTANCE INTERLAMINAR LUMBAR/SACRAL W IMAGE GUIDE 06/07/2018 INJECTION SPINE LUMBAR OR SACRAL performed by [place] Desiree Bansal, DO at [facility] INJECT DX/THER SUBSTANCE INTERLAMINAR LUMBAR/SACRAL W IMAGE GUIDE 07/21/2019 INJECTION SPINE LUMBAR OR SACRAL performed by [place] Isidro Bansal, DO at OR [facility] INJECT DX/THER SUBSTANCE INTERLAMINAR LUMBAR/SACRAL W IMAGE GUIDE 09/01/2019 INJECTION SPINE LUMBAR OR SACRAL performed by [place] Isidro Bansal, DO at [facility] INJECT DX/THER SUBSTANCE INTERLAMINAR LUMBAR/SACRAL W IMAGE GUIDE 07/31/2020 INJECTION SPINE LUMBAR OR SACRAL performed by Heriberto Isidro Bansal, DO at OR [facility] INJECT DX/THER SUBSTANCE INTERLAMINAR LUMBAR/SACRAL W IMAGE GUIDE 09/04/2020 INJECTION SPINE LUMBAR OR SACRAL performed by [place] Isidro Bansal, DO at [facility] INJECT DX/THER SUBSTANCE INTERLAMINAR LUMBAR/SACRAL W IMAGE GUIDE 05/21/2022 INJECTION SPINE LUMBAR OR SACRAL performed by Heriberto Isidro Bansal, DO at OR [facility] KNEE ARTHROSCOPY/SURGERY LAPAROSCOPY DIAGNOSTIC 11/11/2019 LAPAROSCOPY DIAGNOSTIC performed by Dejuan Kaufman MD at [facility] LAPAROSCOPY; CHOLECYSTECTOMY 10/24/2019 LUMBAR / SACRAL EPIDURAL, SINGLE LEVEL 06/28/2018 INJECTION TRANSFORAMINAL EPIDURAL LUMBAR OR SACRAL performed by Heriberto Bansal DO at OR [facility] MUSCLE/FASCIA DEBRIDEMENT, FIRST 20 CM2 Right 2019 DEBRIDEMENT SKIN SUBCUTANEOUS TISSUE AND MUSCLE performed by Dejuan Kaufman MD at [facility] REMOVAL OF SMALL INTESTINE W/FUSION N/A 04/25/2020 ENTERECTOMY SMALL BOWEL RESECTION performed by Dejuan Kaufman MD at [facility] REMOVE FOOT TENDON LESION Right 04/14/2019 EXCISION LESION TENDON FOOT performed by Sana Burgos DPM at [facility] REPAIR BOWEL OPENING N/A 04/25/2020 CLOSURE ENTEROSTOMY performed by Dejuan Kaufman MD at [facility] REPAIR INITIAL INCISIONAL OR VENTRAL HERNIA; REDUCIBLE N/A 04/25/2020 REPAIR INITIAL INCISIONAL /VENTRAL HERNIA REDUCIBLE performed by Dejuan Kaufman MD at [facility] SACROILIAC JOINT INJECT W/GUIDANCE 12/18/2021 INJECTION SACROILIAC JOINT performed by Heriberto Bansal DO at OR [facility] SACROILIAC JOINT INJECT W/GUIDANCE 02/19/2022 INJECTION SACROILIAC JOINT performed by Heriberto Bansal DO at [facility] SPINE SURGERY PROCEDURE NEC 11/2020 SUBQ DEBRIDEMENT, FIRST 20 CM2 N/A 11/05/2019 DEBRIDEMENT SKIN AND SUBCUTANEOUS TISSUE performed by Williams Barrientos MD at [facility] TOTAL ABD HYSTERECTOMY W/WO REMOVAL OF TUBE(S) 01/2004 has left ovary Family History: Father in 2019 at the age of 89. Mother's history is unknown. 12 siblings. Two siblings diseased. Sister Gayla was killed in an MVA. Sister Lili passed with pancreatic cancer. Aunt with breast cancer. Uncle with CHF. Social History: Dedicated smoker, starting at the age of 13, smoking up to 2 ppd, currently smokingabout 1/2 ppd. No smokeless tobacco use. Rare alcohol. No illegal drug use. (Will). Three children without cardiac issues. Complete Review of Systems is as stated above, negative, or noncontributory. Review of patient's allergies indicates: No Known Allergies Current Outpatient Medications Medication Sig Dispense Refill Atorvastatin Calcium 40 MG Oral Tablet (Lipitor) TAKE ONE TABLET BY MOUTH IN THE MORNING 90 Tablet 0 Furosemide 40 MG Oral Tablet (Lasix) TAKE ONE TABLET BY MOUTH DAILY NEEDED for swelling 90 Tablet 0 Pantoprazole Sodium 40 MG Oral Tablet Delayed Release (Protonix) Take 1 Tablet by mouth in the morning. 30 minutes before the first meal of the day. Do not crush, split or chew the tablet. 30 Tablet 0 Gabapentin 600 MG Oral Tablet (Neurontin) take 1 tablet in the morning, 1 tablet at noon and 1 tablet before bedtime 270 Tablet 1 Baclofen 20 MG Oral Tablet TAKE ONE TABLET BY MOUTH THREE TIMES DAILY in the morning, at noon, and before bedtime if needed for muscle spasms 90 Tablet 2 Sucralfate 1 GM Oral Tablet (Carafate) TAKE ONE TABLET BY MOUTH AT BEDTIME. may also take additionally up to 4 times daily if needed for nausea, epigastric pain 360 Tablet 0 Wegovy 0.25 MG/0.5ML Subcutaneous Solution Auto-injector (Semaglutide-Weight Management) Inject 0.25 mg under the skin once a week. 2 mL 3 Hydroxychloroquine Sulfate 200 MG Oral Tablet (Plaquenil) 2 tablets each evening 180 Tablet 1 Linzess 72 MCG Oral Capsule (linaCLOtide) TAKE 1 CAPSULE BY MOUTH DAILY BEFORE BREAKFAST 90 Capsule3 rOPINIRole HCl 2 MG Oral Tablet (Requip) TAKE ONE TABLET BY MOUTH ONCE DAILY IN THE EVENING 90 Tablet 0 Potassium Chloride ER 10 MEQ Oral Capsule Extended Release Take 1 Capsule by mouth in the morning and 1 Capsule before bedtime. 180 Capsule 1 Midodrine HCl 10 MG Oral Tablet (Proamatine) Take one tablet shortly before or upon rising in the morning, midday, and late afternoon (not later than 6 PM) 270 Tablet 3 Hydrocortisone 5 MG Oral Tablet (Cortef) 2 tab in the morning, and 1 tab around 2 pm, triple dose during illness, MDD 9 tabs 270 Tablet 3 Ondansetron 4 MG Oral Tablet Disintegrating Place 1 Tablet on tongue every 8 hours as needed for Nausea or Vomiting. dissolve on tongue. 30 Tablet 5 Mirtazapine 7.5 MG Oral [...] before bedtime for anxiety 270 Tablet 1 hydrOXYzine HCl 25 MG Oral Tablet TAKE ONE TABLET BY MOUTH IN THE MORNING, at noon, in the evening,and before bedtime if needed for itching or anxiety 40 Tablet 0 Aspirin EC 81 MG Oral Tablet Delayed Release Take 1 Tablet by mouth in the morning. DULoxetine HCl 60 MG Oral Capsule Delayed Release Particles (Cymbalta) Take by mouth 2 Capsules in the morning. 180 Capsule 1 valACYclovir HCl 1 GM Oral Tablet [...] wand, pt lives alone) 222 mL 2 BLOOD PRESSURE CUFF MISC for home BP monitoring 1 Kit 1 No current facility-administered medications for this visit. PHYSICAL EXAMINATION: BP 106/64 | Pulse 100 | Resp 16 | Wt 93.4 kg (206 lb) | SpO2 94% Comment: RA | BMI 34.28 kg/m | BSA 2.07 m General: A&Ox3. NAD. HEENT: Normocephalic. Atraumatic. PER. Conjunctiva pink, sclera clear. Neck: Left carotid bruit. No overt JVD. Heart: RRR 90 bpm. No murmur. No rub. No gallop. Lungs: Decreased. Diminished. Left mid lung wheeze. No rhonchi. No rales. Abdomen: +BS. Soft. Nontender. No masses or organomegaly. Extremities: No clubbing. No cyanosis. No edema. Limited neurological examination is without focal deficits. Pulses: Posterior tibial=1/4. Data: Monitoring in June 2020 revealed sinus rhythm with an average heart rate of 82 bpm. Minimum heart rate was 64 bpm. Maximum heart rate was 123 bpm. Rare atrial and ventricular ectopy noted. Multiple episodes of dizziness correlated with normal sinus rhythm. No significant arrhythmias observed. February 07, 2022 TTE Interpretation Summary (as per Dr. Chowdhury): The stress echo is negative for inducible ischemia. The stress EKG response showed no evidence of ischemia. The stress test was terminated due to target heart rate achieved. The patient described 7/10 intensity chest pressure at peak stress that resolved early in the post stress recovery interval. The heart rate response to stresswas normal. The blood pressure response to stress was normal. No significant valvular pathology waspresent on the resting study. June 2022 Zio Monitor: Patient had a min HR of 57 bpm, max HR of 134 bpm, and avg HR of 88 bpm. Predominant underlying rhythm was Sinus Rhythm. Isolated SVEs were rare (<1.0%), SVE Couplets were rare (<1.0%), and no SVE Triplets were present. Isolated VEs were rare (<1.0%), and no VE Couplets or VE Triplets were present. 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 Chronic orthostatic hypotension. General measures advised. Hydration encouraged. Compression stockings discussed. Continue midodrine 10 mg 3 times per day - shortly before or upon rising in the morning, midday, and late afternoon (not later than 6 pm). Suspect baclofen, trazodone, and Requip may becontributing factors; recommend reduction/discontinuation if possible. Resting echocardiography offered to reassess LV function and declined. Chronic mild intermittent lower extremity edema, quiescent. General measures advised. Avoid furosemide. Left carotid bruit. Carotid duplex in December 2022 revealed stable mild bilateral internal carotidartery disease. Tobacco cessation urged. Continue aspirin and statin. Chronic tobacco abuse. Cessation advised. Dyslipidemia. Followed by PCP. LDL cholesterol 82 mg/dL on May 02, 2022. On Atorvastatin 40 mg/day. Consider targeting an optimal LDL cholesterol of less than 70 mg/dL. Suspected nocturnal hypoxemia and/or sleep apnea. Evaluation declined. Generalized anxiety. Depression. Followed by PCP. Cervical and lumbar degenerative disc disease, lumbar spinal stenosis, osteoarthritis Lupus erythematosus tumidus Secondary polycythemia, reactive MGUS, iron deficiency anemia. Followed by [facility] Hematology/Oncology. Routine cardiology follow-up. ER with emergencies. Quinn Uriostegui PA-C Department of Cardiology I spent a total of 20-29 minutes (exact time 26 mins) on the date of service in preparation, delivery, and documentation of the care provided to Tracy Benavides excluding any time spent in the performance of separately billed services. This visit involved medical care services related to at least one serious condition or complex condition requiring ongoing care. This chart was completed in part utilizing [employer] App Speech Voice Recognition Software. Grammatical errors, random word insertions, prounoun errors, and incomplete sentences are an occasional consequence of this system due to software limitations, ambient noise, and hardware issues. Any formal questions or concerns about the content, text, or information contained within the body of this dictation should be directly addressed to the provider for clarification. documented in this encounter Procedure Notes * Ephraim Montalvo MD - 10/08/2023 8:58 AM EDTAssociated Order(s): EKG REASON FOR STUDY: routine;routine CONCLUSIONS: Sinus tachycardia Biatrial enlargement Abnormal ECG When compared with ECG of 29-Oct-2022 10:31, No significant change was found Ventricular Rate: 101 Atrial Rate: 101 NH Interval: 172 QRS Duration: 96 QT/QTc: 370/479 ms P-R-T Thayne: 71 : 80 : 53 degrees documented in this encounter Nursing Notes * Ginny Gresham LPN - 10/08/2023 8:55 AM EDT Examination Room: 4 Name: Tracy Benavides Date of : 1965 Reason for Visit: Follow up Problems/Concerns: Fall 2 weeks ago, lightheaded, no LOC granddaughter witnessed, [facility] Hosp(s): denies Chest Pain/SOB: denies MyChart Discussed: ALREADY ACTIVE Patient was instructed to not get up on the exam table until directed and assisted by their provider; patient is to remain seated in the chair/ wheelchair/ exam table for fall prevention and safety reasons. Patient is aware staff will assist stepping down off exam table with personnel. documented in this encounter Plan of Treatment Upcoming Encounters Date Type Department Care Team (Late st Contact Info) Description 10/15/2023 12:30 PM EDT Imaging Radiology [address] [place] [address] 11/13/2023 9:15 AM EDT Office Visit Dermatology [facility] [address] [facility] [place] [address] Adebayo Pressley MD [address] [facility] [place] [address] 11/16/2023 10:40 AM EDT Office Visit Nutrition & Weight Management, [facility] [address] [place] [address] Tiara Gautam PA-C [address] [place] [address] 12/31/2023 8:40 AM EDT Office Visit Rheumatology [address] [place] [address] Isidro Phillips MD [address] [place] [address] [place] [address] 02/19/2024 9:30 AM EST Office Visit Gastroenterology [address] [place] [address] Sheryl Low CRNP [address] [place] [address] 05/24/2024 9:00 AM EDT Office Visit Cardiology [address] [place] [address] Quinn Uriostegui PA-C [address] [place] [address] Scheduled Procedures Name Priority Associated Diagnoses Date/Ti me COLONOSCOPY FLEXIBLE PROXIMAL DIAGNOSTIC Recall History of colon polyps Health Maintenance Due Date Last Done Comments DISCUSS TOBACCO CESSATION (REFER TO SMARTSET #8750) 1965 COVID-19 Vaccine (#1) 1970 Hepatitis B [...] this encounter Medical Devices Implanted Type Area Jukebox Checker Device Identifier Shelf Expiration Date Model / Serial / Lot [place] Arthrodesis Nail, Left Implanted:Qty: 1 on 06/10/2012 at [place] [facility] Tissue - Non Human Left: Leg Upper ALFONZO 04/01/2016 [id number] S / / [id number] Screw Locking 1896-5035s - [id number] Implanted:Qty: 1 on 06/10/2012 at [place] [facility] Left: Leg Upper ALFONZO : TRAUMA 08/29/2013 [id number] S / / [id number] Screw Locking 1896-5030s - [id number] Implanted:Qty: 1 on 06/10/2012 at [place] [facility] ALFONZO : TRAUMA 04/29/2013 [id number] S / / [id number] Screw Threaded Lckg 5x42.5mm - [id number] Implanted:05/31 (Quantity not on file) Left: Leg Upper ALFONZO : ORTHOPAEDICS 12/31/2015 1250-3298 S / / [id number] Screw Locking 1896-5040s - [id number] Implanted:Qty: 1 on 06/10/2012 at [place] [facility] Left: Leg Upper ALFONZO : TRAUMA 07/30/2014 [id number] S / / [id number] Screw Compression 1825-0000s - [id number] Implanted:Qty: 1 on 06/10/2012 at [place] [facility] Left: Leg Upper ALFONZO : TRAUMA 12/30/2012 [id number] S / / [id number] Screw Shaft 1891-5045s - [id number] Implanted:Qty: 1 on 06/10/2012 at [place] [facility] Left: Leg Upper ALFONZO : ORTHOPAEDICS 12/31/2015 [id number] S / / [id number] Mesh Vicryl 12 X 12 Vkm-L - [id number] Implanted:Qty: 1 on 04/25/2020 by Dejuan Kaufman MD at [facility] N/A: Abdomen JNJ : [employer] 04/29/2024 VKM-L / / [id number] Mesh Soft [id number] - [id number] Implanted:Qty: 1 on 04/25/2020 by Dejuan Kaufman MD at [facility] N/A: Abdomen CR BARD : DAVOL [id number] 07/27/2024 [id number] / / [id number] documented as of this encounter Procedures Procedure Name Priority Date/Time Associated Diagnosis Comments NH ECG ROUTINE ECG W/LEAST 12 LDS W/I&R Routine 10/08/2023 8:58 AM EDT Hypotension, unspecified hypotension type Mild carotid artery disease (HCC) Dyslipidemia, goal LDL below 100 Palpitations documented in this encounter Results * EKG (10/08/2023 8:58 AM EDT) 10/08/2023 8:58 AM EDT Narrative Procedure Note Ephraim Montalvo MD - 10/08/2023 8:58 AM EDT REASON FOR STUDY: routine;routine CONCLUSIONS: Sinus tachycardia Biatrial enlargement Abnormal ECG When compared with ECG of 29-Oct-2022 10:31, No significant change was found Ventricular Rate: 101 Atrial Rate: 101 NH Interval: 172 QRS Duration: 96 QT/QTc: 370/479 ms P-R-T Thayne: 71 : 80 : 53 degrees Quinn Uriostegui PA-C EKG [facility] documented in this encounter Visit Diagnoses Diagnosis Palpitations- Primary Hypotension, unspecified hypotension type Mild carotid artery disease (HCC) Unspecified disorders of arteries and arterioles Dyslipidemia, goal LDL below 100 Other and unspecified hyperlipidemia documented in this [...] Discussion of Advance Directives occurred with: Not Discussed"
--- OUTSIDE RECORDS SUMMARY | 2024-04-01 20:52 | External Medical Summary | Summary of Care ---
Author Name Unknown Organization [facility] Address [address] [place] [address] Phone [phone] Care Team Providers Care Disk Recordist Name Role Phone Shazia Bee MD Primary Care Provide r Encounter Details Date Type Department Care Team (Latest Contact Info) Description 08/06/2015 9:20 AM EDT Hospital Encounter Radiology Film File [address] [place], [place] [phone] Discharge Disposition: Home - Self Care Allergies No known active allergiesdocumented as of this encounter (statuses as of 10/24/2023) Medications Medication Sig Dispensed Refills Start Date End Date Status BLOOD PRESSURE CUFF MISCIndications:Fall for home BP monitoring 1 Kit 1 03/16/2013 Active FOLIC ACID 800 MCG PO TABS Take 1 Tablet by mouth in the morning. 11/07/2013 Active documented as of this encounter (statuses [...] Dr. Shima [place] [facility]- Keri Zaman ([phone]) [facility]- Cate Trinidad ([phone]) [facility]- Julia Villafana ([phone]) Diagnosis changed due to Research Module. Go to Snapshot for study details. Anxiety 04/26/2015 11/20/2016 Recurrent major depressive disorder 04/14/2014 06/21/2019 Adrenal insufficiency 12/12/20132016 FORCE TJR RESEARCH OTHER*[id number] 11/02/2013 03/19/2016 Overview: Patient has completed participation [...] Immunizations Name Administration Dates Next Due Pneumococcal Polysaccharide PPV23 (Pneumovax) 06/26/2008 Seasonal Influenza, Quadriva lent, No Preserve, IM 12/27/2014 Seasonal Influenza, Split, I IV3, With Preserve, Inj 12/01/2013,12/06/2012,11/18/2011,12/06,12/03/2009,12/26/2008,12/27/2007 ,01/08/2007,12/09/2005 TDAP, Age 7 and older, IM (Adacel) 08/27/2007 documented as of this encounter Social History Tobacco Use Types Packs/Day Years Used Date Smoking Tobacco: Every Day Cigarettes 1.5 36 Smokeless Tobacco: Never Alcohol Use Standard Drinks/Week Comments Yes 0 (1 standard drink = 0.6 oz pur e alcohol) occasioinally PHQ-2 Answer Date Recorded PHQ-2 Score 0 [...] file Not on file Not on file COVID-19 Exposure Response Date Recorded In the last month, have you been in contact with someone who was confirmed or suspected to have Coronavirus / COVID-19? No / Unsure 2019 5:42 PM EDT documented as of this encounter Plan of Treatment Upcoming Encounters Date Type Department Care Team (Late st Contact Info) Description 10/30/2023 9:20 AM EDT Office Visit Family Medicine [address] [place] [address] Shazia Bee MD [address] [place] [address] [place] [address] 11/05/2023 11:40 AM EDT Office Visit Nutrition & [facility] Management, [facility] [place] [address] Tiara Gautam PA-C [address] [place] [address] 11/13/2023 9:15 AM EDT Office Visit Dermatology [facility] [address] [facility] [place] [address] Adebayo Pressley MD [address] [facility] [place] [address] 12/31/2023 8:40 AM EDT Office Visit Rheumatology [place] [address] [facility] [place] [address] Isidro Phillips MD [facility] [employer] [place] [address] 01/01/2024 12:00 PM EDT Office Visit Gastroenterology [address] [place] [address] Sheryl oLw CRNP [address] [place] [address] 05/24/2024 9:00 AM EDT Office Visit Cardiology [address] [place] [address] Quinn Uriostegui PA-C [address] [place] [address] 10/18/2024 12:30 PM EDT Imaging Radiology [address] [place] [address] Scheduled Procedures Name Priority Associated Diagnoses Date/Ti me COLONOSCOPY FLEXIBLE PROXIMAL DIAGNOSTIC Recall History of colon polyps Health Maintenance Due Date Last Done Comments DISCUSS TOBACCO CESSATION (REFER TO SMARTSET #9991) 1965 COVID-19 Vaccine (#1) 1970 Hepatitis B [...] this encounter Medical Devices Implanted Type Area Asbestos Removal Worker Device Identifier Shelf Expiration Date Model / Serial / Lot [place] Arthrodesis Nail, Left Implanted:Qty: 1 on 06/10/2012 [place] [facility] Tissue - Non Human Left: Leg Upper ALFONZO 04/01/2016 7482-8613 S / / [id number] Screw Locking 1896-5035s - [id number] Implanted:Qty: 1 on 06/10/2012 at [place] [facility] [place] Left: Leg Upper ALFONZO : TRAUMA 08/29/2013 3814-8192 S / / [id number] Screw Locking 1896-5030s - [id number] Implanted:Qty: 1 on 06/10/2012 at [facility] ALFONZO : TRAUMA 04/29/2013 1829-4188 S / / [id number] Screw Threaded Lckg 5x42.5mm - [id number] Implanted:05/31 (Quantity not on file) Left: Leg Upper ALFONZO : ORTHOPAEDICS 12/31/2015 0663-4866 S / / [id number] Screw Locking 1896-5040s - [id number] Implanted:Qty: 1 on 06/10/2012 at [place] [facility] [place] Left: Leg Upper ALFONZO : TRAUMA 07/30/2014 2276-9779 S / / [id number] Screw Compression 1825-0000s - [id number] Implanted:Qty: 1 on 06/10/2012 at [facility] Left: Leg Upper ALFONZO : TRAUMA 12/30/2012 8175-8432 S / / [id number] Screw Shaft 1891-5045s - [id number] Implanted:Qty: 1 on 06/10/2012 at [place] [facility] [place] Left: Leg Upper ALFONZO : ORTHOPAEDICS 12/31/2015 9349-3782 S / / [id number] Mesh Vicryl 12 X 12 Vkm-L - [id number] Implanted:Qty: 1 on 04/25/2020 by Dejuan Kaufman MD at [place] [facility] [place] N/A: Abdomen JNJ : [employer] 04/29/2024 VKM-L / / [id number] Mesh Soft [id number] - [id number] Implanted:Qty: 1 on 04/25/2020 by Dejuan Kaufman MD at [place] [facility] [place] N/A: Abdomen CR BARD : DAVOL [id number] 07/27/2024 [id number] / / [id number] documented as of this encounter Procedures Procedure Name Priority Date/Time Associated Diagnosis Comments RADIOLOGY EXAM - MAMMOGRAPHY (IMAGES ONLY, NO REPORT) Routine 08/06/2015 9:20 AM EDT documented in this encounter Results * RADIOLOGY EXAM - MAMMOGRAPHY (IMAGES ONLY, NO REPORT) (08/06/2015 9:20 AM EDT) 08/06/2015 9:17 AM EDT Narrative Scheduling, Silent - 10/23/2023 2:38 PM EDT This is an imaging study not interpreted or resulted by a [facility] or [employer] [facility] contracted radiologist. Jonoraisa Meléndez RISK CONSULTING TREASURY DIRECTOR RAD MAMMOGRAPHY documented in this encounter Advance [...] Directives occurred with: Not Discussed Care Teams Disk Recordist Relationship Specialty Start Date End Date Shazia Bee MD [address] [place] [address] [place] [phone] PCP - General Family Medicine 08/22/13 09/11/23 documented as of this encounter
--- OUTSIDE RECORDS SUMMARY | 2024-04-01 20:52 | External Medical Summary ---
Author Name Unknown Address Unknown Organization K01:[facility] [place] [address] [place] [address] Laboratory Report Ordering Provider Test Date Status RENETTA MORGAN 10/08/2023 09:40:28 Final Observation Date Value Abnormality Reference (Units ) Status MYCODE SPECIMEN-SST 10/08/2023 09:40:28 Freezing of extracted DNA, whole blood and/or serum. Final Performing Location LABORATORY C - [address] [place] [address]
--- OUTSIDE RECORDS SUMMARY | 2024-04-01 20:52 | External Medical Summary ---
Author Name Unknown Address Unknown Organization K01:[facility] [place] [address] [place] [address] Laboratory Report Ordering Provider Test Date Status RENETTA MORGAN 10/08/2023 09:40:28 Final Observation Date Value Abnormality Reference (Units ) Status MYCODE SPECIMEN-SST 10/08/2023 09:40:28 Freezing of extracted DNA, whole blood and/or serum. Final Performing Location LABORATORY C - [address] [place] [address]
--- OUTSIDE RECORDS SUMMARY | 2024-04-01 20:52 | External Medical Summary | Summary of Care ---
Author Name Unknown Organization [facility] Address [address] [facility] [place] [address] Phone [phone] Care Team Providers Care Glass Blowing Lathe Operator Name Role Phone Unavailable Primary Care Provider Unavailabl e Reason for Visit * Reason Comments Outpatient Testing Encounter Details Date Type Department Care Team (Late st Contact Info) Description 10/08/2023 9:30 AM EDT Laboratory Laboratory [address] [place] [phone] [place] [address] [employer] Other*[id number]; Encounter for long-term (current) use of medications; Dyslipidemia, goal LDL below 130 Allergies No known active allergiesdocumented as of this encounter (statuses as of 10/08/2023) Medications Medication Sig Dispensed Refills Start Date [...] as of this encounter (statuses as of 10/08/2023) Active Problems Problem Noted Date Diagnosed Date [...] as of this encounter (statuses as of 10/08/2023) Resolved Problems Problem Noted Date Diagnosed Date [...] Shima [facility]- Keri Zaman ([phone]) [facility]- Cate Trinidad ([phone]) [facility]- Julia Villafana ([phone]) Diagnosis changed due to Research Module. Go to Snapshot for study details. Anxiety 04/26/2015 11/20/2016 Recurrent major depressive disorder 04/14/2014 06/21/2019 Adrenal insufficiency 12/12/20132016 FORCE TJR RESEARCH OTHER*[id number] 11/02/2013 03/19/2016 Overview: Patient has completed participation [...] as of this encounter (statuses as of 10/08/2023) Immunizations Name Administration Dates Next Due Pneumococcal Conjugate Vacci ne, 20-valent (Ifkmgiw23) 11/15/2021 Pneumococcal Polysaccharide PPV23 (Pneumovax) 06/26/2008 Seasonal [...] Description 10/15/2023 12:30 PM EDT Imaging Radiology [address] [place] [address] 11/13/2023 9:15 AM EDT Office Visit Dermatology [facility] [address] [facility] [place] [address] Adebayo Pressley MD [address] [facility] [place] [address] 11/16/2023 10:40 AM EDT Office Visit Nutrition & Weight Management, [facility] [address] [place] [address] Tiara Gautam PA-C [address] [place] [address] 12/31/2023 8:40 AM EDT Office Visit Rheumatology [address] [place] [address] Isidro Phillips MD [address] [place] [address] [place] [address] 02/19/2024 9:30 AM EST Office Visit Gastroenterology [address] [place] [address] Sheryl Low CRNP [address] [place] [address] 05/24/2024 9:00 AM EDT Office Visit Cardiology [address] [place] [address] Quinn Uriostegui PA-C [address] [place] [address] Pending Results Name Type Priority Associated Diagnoses Date /Time MYCODE SUBSEQUENT ADULT Lab Routine MyCode Research Other*[id number] 10/08/2023 9:40 AM EDT LIPID PANEL WITH DIRECT LDL IF TG IS HIGH Lab Routine Encounter for long-term (current) use of medications Dyslipidemia, goal LDL below 130 10/08/2023 9:40 AM EDT MYCODE SST1 Lab Routine MyCode Research Other*[id number] 10/08/2023 9:40 AM EDT MYCODE SST2 Lab Routine MyCode Research Other*[id number] 10/08/2023 9:40 AM EDT Scheduled Procedures Name Priority Associated Diagnoses Date/Ti [...] this encounter Medical Devices Implanted Type Area Offensive Coordinator Device Identifier Shelf Expiration Date Model / Serial / Lot Alfonzo Arthrodesis Nail, Left Implanted:Qty: 1 on 06/10/2012 at [place] [facility] Tissue - Non Human Left: Leg Upper ALFONZO 04/01/2016 2186-6962 S / / [id number] Screw Locking 1896-5035s - [id number] Implanted:Qty: 1 on 06/10/2012 at OR [facility] Left: Leg Upper ALFONZO : TRAUMA 08/29/2013 3139-7133 S / / [id number] Screw Locking 1896-5030s - [id number] Implanted:Qty: 1 on 06/10/2012 at OR [facility] ALFONZO : TRAUMA 04/29/2013 3108-2948 S / / [id number] Screw Threaded Lckg 5x42.5mm - [id number] Implanted:05/31 (Quantity not on file) Left: Leg Upper ALFONZO : ORTHOPAEDICS 12/31/2015 3125-0870 S / / [id number] Screw Locking 1896-5040s - [id number] Implanted:Qty: 1 on 06/10/2012 at OR [facility] Left: Leg Upper ALFONZO : TRAUMA 07/30/2014 1070-6168 S / / [id number] Screw Compression 1825-0000s - [id number] Implanted:Qty: 1 on 06/10/2012 at [facility] Left: Leg Upper ALFONZO : TRAUMA 12/30/2012 0003-9197 S / / [id number] Screw Shaft 1891-5045s - [id number] Implanted:Qty: 1 on 06/10/2012 at OR [facility] Left: Leg Upper ALFONZO : ORTHOPAEDICS 12/31/2015 4415-3029 S / / [id number] Mesh Vicryl 12 X 12 Vkm-L - [id number] Implanted:Qty: 1 on 04/25/2020 by Dejuan Kaufman MD at OR [facility] N/A: Abdomen JNJ : [employer] 04/29/2024 VKM-L / / [id number] Mesh Soft 66s99yp - [id number] Implanted:Qty: 1 on 04/25/2020 by Dejuan Kaufman MD at OR [facility] N/A: Abdomen CR BARD : DAVOL [id number] 07/27/2024 [id number] / / [id number] documented as of this encounter Visit Diagnoses Diagnosis MyCode Research Other*[id number] Encounter for long-term (current) use of medications Encounter for long-term (current) use of other medications Dyslipidemia, goal LDL below 130 Other and [...]
--- OUTSIDE RECORDS SUMMARY | 2024-04-01 20:52 | External Medical Summary | Summary of Care ---
Author Name Unknown Organization [facility] Address [address] [place] [address] Phone [phone] Care Team Providers Care Die Attaching Machine Tender Name Role Phone Shazia Bee MD Primary Care Provide r Encounter Details Date Type Department Care Team (Latest Contact Info) Description 08/12/2016 9:05 AM EDT Hospital Encounter Radiology Film File [address] [place], [place] [phone] Discharge Disposition: Home - Self Care Allergies [...] Dr. Shima [place] [facility]- Keri Zaman ([phone]) [facility]- Cate Trinidad ([phone]) [facility]- Julia Villafana ([phone]) Diagnosis changed due to Research Module. Go to Snapshot for study details. Anxiety 04/26/2015 11/20/2016 Recurrent major depressive disorder 04/14/2014 06/21/2019 Adrenal insufficiency 12/12/20132016 FORCE TJR RESEARCH OTHER*[id number] 11/02/2013 03/19/2016 Overview: Patient has completed participation [...] 9:20 AM EDT Office Visit Family Medicine [address] [place] [address] Shazia Bee MD [address] [place] [address] [place] [address] 11/05/2023 11:40 AM EDT Office Visit Nutrition & Weight Management, [facility] 132 [facility] [place] [address] Tiara Gautam PA-C [address] [place] [address] 11/13/2023 9:15 AM EDT Office Visit Dermatology [facility] [place] [address] [facility] [place] [address] Adebayo Pressley MD [address] [facility] [place] [address] 12/31/2023 8:40 AM EDT Office Visit Rheumatology [place] [address] [place] [address] Isidro Phillips MD [facility] [place] [address] 01/01/2024 12:00 PM EDT Office Visit Gastroenterology [address] [place] [address] Sheryl Low CRNP [address] [place] [address] 05/24/2024 9:00 AM EDT Office Visit Cardiology [address] [place] [address] Quinn Uriostegui PA-C [address] [place] [address] 10/18/2024 12:30 PM EDT Imaging Radiology [address] [place] [address] Scheduled Procedures Name Priority Associated Diagnoses Date/Ti me COLONOSCOPY FLEXIBLE PROXIMAL DIAGNOSTIC Recall History of colon polyps Health Maintenance Due Date Last Done Comments DISCUSS TOBACCO CESSATION (REFER TO SMARTSET #7960) 1965 COVID-19 Vaccine (#1) 1970 Hepatitis B [...] this encounter Medical Devices Implanted Type Area Block Chopper Hand Device Identifier Shelf Expiration Date Model / Serial / Lot [place] Arthrodesis Nail, Left Implanted:Qty: 1 on 06/10/[address] [facility] [place] Tissue - Non Human Left: Leg Upper ALFONZO 04/01/2016 4584-7990 S / / [id number] Screw Locking 1896-5035s - [id number] Implanted:Qty: 1 on 06/10/[address] [facility] [place] Left: Leg Upper ALFONZO : TRAUMA 08/29/2013 1612-0334 S / / [id number] Screw Locking 1896-5030s - [id number] Implanted:Qty: 1 on 06/10/[address] [facility] [place] ALFONZO : TRAUMA 04/29/2013 5647-2287 S / / [id number] Screw Threaded Lckg 5x42.5mm - [id number] Implanted:05/31 (Quantity not on file) Left: Leg Upper ALFONZO : ORTHOPAEDICS 12/31/2015 8848-3841 S / / [id number] Screw Locking 1896-5040s - [id number] Implanted:Qty: 1 on 06/10/[address] [facility] [place] Left: Leg Upper ALFONZO : TRAUMA 07/30/2014 5689-2928 S / / [id number] Screw Compression 1825-0000s - [id number] Implanted:Qty: 1 on 06/10/[address] [facility] [place] Left: Leg Upper ALFONZO : TRAUMA 12/30/2012 5551-1592 S / / [id number] Screw Shaft 1891-5045s - [id number] Implanted:Qty: 1 on 06/10/[address] [facility] [place] Left: Leg Upper ALFONZO : ORTHOPAEDICS 12/31/2015 7771-8766 S / / [id number] Mesh Vicryl 12 X 12 Vkm-L - [id number] Implanted:Qty: 1 on 04/25/2020 by Dejuan Kaufman MD at OR [facility] [place] N/A: Abdomen JNJ : [employer] 04/29/2024 VKM-L / / [id number] Mesh Soft 07s26ry - [id number] Implanted:Qty: 1 on 04/25/2020 by Dejuan Kaufman MD at OR [facility] [place] N/A: Abdomen CR BARD : DAVOL [id number] 07/27/2024 [id number] / / [id number] documented as of this encounter Procedures Procedure Name Priority Date/Time Associated Diagnosis Comments RADIOLOGY EXAM - MAMMOGRAPHY (IMAGES ONLY, NO REPORT) Routine 08/12/2016 9:05 AM EDT documented in this encounter Results * RADIOLOGY EXAM - MAMMOGRAPHY (IMAGES ONLY, NO REPORT) (08/12/2016 9:05 AM EDT) 08/12/2016 9:02 AM EDT Narrative Scheduling, Silent - 10/23/2023 2:38 PM EDT This is an imaging study not interpreted or resulted by a [facility] or [facility] contracted radiologist. Lizzie Meléndez WARD AIDE RAD MAMMOGRAPHY documented in this encounter Advance [...] Directives occurred with: Not Discussed Care Teams Die Attaching Machine Tender Relationship Specialty Start Date End Date Shazia Bee MD [address] [place] [address] [place] [phone] PCP - General Family Medicine 08/22/13 09/11/23 documented as of this encounter
--- OUTSIDE RECORDS SUMMARY | 2024-04-01 20:52 | External Medical Summary | Summary of Care ---
Author Name Unknown Organization [facility] Address [address] [place] [address] Phone [phone] Care Team Providers Care Acquisition Specialist Name Role Phone Unavailable Primary Care Provider Unavailabl e Encounter Details Date Type Department Care Team (Late st Contact Info) Description 10/19/2023 Orders Only Outcomes Research Department [address] [place] [address] Noreen Schrader CHRA [employer] Research Other*[id number] Allergies No known active allergiesdocumented as of this encounter (statuses as of 10/19/2023) Medications Medication Sig Dispensed Refills Start Date [...] back twice daily as needed (please provide mikeion gato, pt lives alone) 222 mL 2 [...] as of this encounter (statuses as of 10/19/2023) Active Problems Problem Noted Date Diagnosed Date [...] as of this encounter (statuses as of 10/19/2023) Resolved Problems Problem Noted Date Diagnosed Date [...] [facility] [place] [facility]- Keri Zaman ([phone]) [facility]- Cate Trinidad ([phone]) [facility] Julia Villafana ([phone]) Diagnosis changed due to Research Module. Go to Snapshot for study details. Anxiety 04/26/2015 11/20/2016 Recurrent major depressive disorder 04/14/2014 06/21/2019 Adrenal insufficiency 12/12/20132016 FORCE TJR RESEARCH OTHER*[id number] 11/02/2013 03/19/2016 Overview: Patient has completed participation [...] as of this encounter (statuses as of 10/19/2023) Immunizations Name Administration Dates Next Due Pneumococcal Conjugate Vacci ne, 20-valent ([id number]) 11/15/2021 Pneumococcal Polysaccharide PPV23 (Pneumovax) 06/26/2008 Seasonal [...] Care Team (Late st Contact Info) Description 11/13/2023 9:15 AM EDT Office Visit Dermatology [facility] [address] [place] [address] Adebayo Pressley MD [address] [facility] [place] [address] 11/16/2023 10:40 AM EDT Office Visit Nutrition & Weight Management, [facility] [address] [place] [address] Tiara Gautam PA-C [address] [place] [address] 12/31/2023 8:40 AM EDT Office Visit Rheumatology [address] [place] [address] Isidro Phillips MD [facility]EARCH [place] [address] 01/01/2024 12:00 PM EDT Office Visit Gastroenterology [address] [place] [address] Sheryl Low CRNP [address] [place] [address] 05/24/2024 9:00 AM EDT Office Visit Cardiology [address] [place] [address] Quinn Uriostegui PAAlexsander [address] [place] [address] 10/18/2024 12:30 PM EDT Imaging Radiology [address] [place] [address] Scheduled Orders Name Type Priority Associated Diagnoses Orde r Schedule MYCODE SUBSEQUENT ADULT Lab Routine MyCode Research Other*[id number] Every 6 Months for 2 Occurrences starting 10/19/2023 until 11/07/2024 Scheduled Procedures Name Priority Associated Diagnoses Date/Ti me COLONOSCOPY FLEXIBLE PROXIMAL DIAGNOSTIC Recall History of colon polyps Health Maintenance Due Date Last Done Comments DISCUSS TOBACCO CESSATION (REFER TO SMARTSET #1607) 1965 COVID-19 Vaccine (#1) 1970 Hepatitis B [...] this encounter Medical Devices Implanted Type Area Casing Worker Device Identifier Shelf Expiration Date Model / Serial / Lot Alfonzo Arthrodesis Nail, Left Implanted:Qty: 1 on 06/10/2012 at OR [facility] Tissue - Non Human Left: Leg Upper ALFONZO 04/01/2016 0305-3292 S / / [id number] Screw Locking 1896-5035s - [id number] Implanted:Qty: 1 on 06/10/2012 at OR [facility] Left: Leg Upper ALFONZO : TRAUMA 08/29/2013 6199-7003 S / / [id number] Screw Locking 1896-5030s - [id number] Implanted:Qty: 1 on 06/10/2012 at OR [facility] ALFONZO : TRAUMA 04/29/2013 1625-2703 S / / [id number] Screw Threaded Lckg 5x42.5mm - [id number] Implanted:05/31 (Quantity not on file) Left: Leg Upper ALFONZO : ORTHOPAEDICS 12/31/2015 6935-2002 S / / [id number] Screw Locking 1896-5040s - [id number] Implanted:Qty: 1 on 06/10/2012 at OR [facility] Left: Leg Upper ALFONZO : TRAUMA 07/30/2014 4357-5634 S / / [id number] Screw Compression 1825-0000s - [id number] Implanted:Qty: 1 on 06/10/2012 at OR [facility] Left: Leg Upper ALFONZO : TRAUMA 12/30/2012 0051-4410 S / / [id number] Screw Shaft 1891-5045s - [id number] Implanted:Qty: 1 on 06/10/2012 at OR [facility] Left: Leg Upper ALFONZO : ORTHOPAEDICS 12/31/2015 0957-5331 S / / [id number] Mesh Vicryl 12 X 12 Vkm-L - [id number] Implanted:Qty: 1 on 04/25/2020 by Dejuan Kaufman MD at OR [facility] N/A: Abdomen JNJ : [employer] 04/29/2024 VKM-L / / [id number] Mesh Soft 04t85vz - [id number] Implanted:Qty: 1 on 04/25/2020 by Dejuan Kaufman MD at OR [facility] N/A: Abdomen CR BARD : DAVOL [id number] 07/27/2024 [id number] / / [id number] documented as of this encounter Visit Diagnoses Diagnosis MyCode Research Other*[id number] documented in this encounter Advance Directives * [...]
--- OUTSIDE RECORDS SUMMARY | 2024-04-01 20:52 | External Medical Summary | Summary of Care ---
Author Name Unknown Organization [facility] Address [address] [place] [address] Phone [phone] Care Team Providers Care Aerospace Engineer Name Role Phone Shazia Bee MD Primary Care Provide r Encounter Details Date Type Department Care Team (Latest Contact Info) Description 08/24/2018 10:15 AM EDT Hospital Encounter Radiology Film File [address] [place], [place] [id number] Discharge Disposition: Home - Self Care Allergies [...] Dr. Shima De Jesus [facility]- Keri Zaman ([phone]) [facility]- Cate Trindiad ([phone]) [facility] Keenans [facility]- Julia Villafana ([phone]) Diagnosis changed due to Research Module. Go to Snapshot for study details. Anxiety 04/26/2015 11/20/2016 Recurrent major depressive disorder 04/14/2014 06/21/2019 Adrenal insufficiency 12/12/20132016 FORCE TJR RESEARCH OTHER*[id number] 11/02/2013 03/19/2016 Overview: Patient has completed participation [...] & above, IM , (FluLaval or Fluzone) 11/19/2017,11/20/2016 Seasonal Influenza, Quadriva lent, No Preserve, IM [...] 9:20 AM EDT Office Visit Family Medicine [address] [address] Shazia Bee MD [address] [place] [address] [place] [address] 11/05/2023 11:40 AM EDT Office Visit Nutrition & Weight Management, [facility] [address] [place] [address] Tiara Gautam PA-C [address] [place] [address] 11/13/2023 9:15 AM EDT Office Visit Dermatology [facility] Sparkle [place]tr[place] [address] [place] [address] Adebayo Pressley MD [address] [place] [address] 12/31/2023 8:40 AM EDT Office Visit Rheumatology [address] [place], [place] [address] Isidro Phillips MD [address] [employer] [place] [address] 01/01/2024 12:00 PM EDT Office Visit Gastroenterology [address] [place] [address] Sheryl Low CRNP [address] [place] [address] 05/24/2024 9:00 AM EDT Office Visit Cardiology [address] [place] [address] Quinn Uriostegui PA-C [address] [place] [address] 10/18/2024 12:30 PM EDT Imaging Radiology [address] [place] [address] Scheduled Procedures Name Priority Associated Diagnoses Date/Ti me COLONOSCOPY FLEXIBLE PROXIMAL DIAGNOSTIC Recall History of colon polyps Health Maintenance Due Date Last Done Comments DISCUSS TOBACCO CESSATION (REFER TO SMARTSET #9378) 1965 COVID-19 Vaccine (#1) 1970 Hepatitis B [...] this encounter Medical Devices Implanted Type Area Lubrication Worker Device Identifier Shelf Expiration Date Model / Serial / Lot Alfonzo Arthrodesis Nail, Left [place]ed:[place] [facility] [place] Left: Leg Upper ALFONZO 04/01/2016 3299-2491 S / / [id number] Screw Locking 1896-5035s - [id number] Implanted:Qty: 1 [place] [facility] [place]: Leg Upper ALFONZO : TRAUMA 08/29/2013 7171-5120 S / / [id number] Screw Locking 1896-5030s - [id number] Implanted:Qty: 1 [place] [facility] [place]FONZO : TRAUMA 04/29/2013 0158-2248 S / / [id number] Screw Threaded Lckg 5x42.5mm - [id number] Implanted:05/31 (Quantity not on file) Left: Leg Upper ALFONZO : ORTHOPAEDICS 12/31/2015 8601-5004 S / / [id number] Screw Locking 1896-5040s - [id number] Implanted:Qty: 1 on 06[place]10[place] [facility] [place]: Leg Upper ALFONZO : TRAUMA 07/30/2014 7366-9179 S / / [id number] Screw Compression 1825-0000s - [id number] Implanted:Qty: 1 [place] [facility] [place]: Leg Upper ALFONZO : TRAUMA 12/30/2012 3497-3666 S / / [id number] Screw Shaft 189-5045s - [id number] Implanted:Qty: 1 on 06[place]10/2012 [place] [facility] [place]: Leg Upper ALFONZO : ORTHOPAEDICS 12/31/2015 1957-7036 S / / [id number] Mesh Vicryl 12 X 12 Vkm-L - [id number] Implanted:Qty: 1 on 04/25/2020 by Dejuan Kaufman [place] [facility] [place]: Abdomen JNJ : [employer] 04/29/2024 VKM-L / / [id number] Mesh Soft 94p77th - [id number] Implanted:Qty: 1 on 04/25/2020 by Dejuan Kaufman [place] [facility] [place] Abdomen CR BARD : DAVOL [id number] 07/27/2024 [id number] / / [id number] documented as of this encounter Procedures Procedure Name Priority Date/Time Associated Diagnosis Comments RADIOLOGY EXAM - MAMMOGRAPHY (IMAGES ONLY, NO REPORT) Routine 08/24/2018 10:15 AM EDT documented in this encounter Results * RADIOLOGY EXAM - MAMMOGRAPHY (IMAGES ONLY, NO REPORT) (08/24/2018 10:15 AM EDT) 08/24/2018 10:1 2 AM EDT Narrative Scheduling, Silent - 10/23/2023 2:35 PM EDT This is an imaging study not interpreted or resulted by a [facility] or [facility] contracted radiologist. Lizzie Meléndez OUTDOOR POWER EQUIPMENT MECHANIC RAD MAMMOGRAPHY documented in this encounter Advance [...] Directives occurred with: Not Discussed Care Teams Aerospace Engineer Relationship Specialty Start Date End Date Shazia Bee MD [address] [place] [address] [place] [address] PCP - General Family Medicine 08/22/13 09/11/23 documented as of this encounter
--- OUTSIDE RECORDS SUMMARY | 2024-04-01 20:52 | External Medical Summary ---
Author Name Unknown Address Unknown Organization K01:LABORATORY [facility] - [address] [place] [address] Laboratory Report Ordering Provider Test Date Status STEPHANI ECHEVERRIA 10/08/2023 09:40:28 Final Observation Date Value Abnormality Reference (Units ) Status LDL, (direct) 10/08/2023 09:40:28 83 <=129 (mg/dL) Final LDL Cholesterol Reference Ra nges (mg/dL):
<70 Target level for high risk ASCVD patient
<100 Optimal for general population
100-129 Near optimal for general population
130-159 Borderline high
160-189 High
>=190 Very high Performing Location LAB[facility]ATORY [facility] - [address] [place] [address]
--- OUTSIDE RECORDS SUMMARY | 2024-04-01 20:52 | External Medical Summary | Summary of Care ---
Author Name Unknown Organization [facility] Address [address] [place] [address] Phone [phone] Care Team Providers Care Discharge Specialist Name Role Phone Shazia Bee MD Primary Care Provide r Encounter Details Date Type Department Care Team (Latest Contact Info) Description 08/18/2017 7:55 AM EDT Hospital Encounter Radiology Film File [address] [place], [place] [phone] Discharge Disposition: Home - Self Care Allergies [...] Dr. Shima De Jesus [facility]- Keri Zaman ([phone]) [facility]- Cate Trinidad ([phone]) [facility] Keenans [facility]- Julia Villafana ([phone]) Diagnosis changed due to Research Module. Go to Snapshot for study details. Anxiety 04/26/2015 11/20/2016 Recurrent major depressive disorder 04/14/2014 06/21/2019 Adrenal insufficiency 12/12/20132016 FORCE TJR RESEARCH OTHER*[id number] 11/02/2013 03/19/2016 Overview: Patient has completed participation [...] & above, IM , (FluLaval or Fluzone) 11/20/2016 Seasonal Influenza, Quadriva lent, No Preserve, IM [...] 9:20 AM EDT Office Visit Family Medicine [address] [place] [address] Shazia Bee MD [address] [place] [address] [place] [address] 11/05/2023 11:40 AM EDT Office Visit Nutrition & Weight Management, [facility] [address] [facility] [place] [address] Tiara Gautam PA-C [address] [place] [address] 11/13/2023 9:15 AM EDT Office Visit Dermatology [facility] [place] [address] [facility] [place] [address] Adebayo Pressley MD [address] [facility] [place] [address] 12/31/2023 8:40 AM EDT Office Visit Rheumatology [address] [place] [address] Isidro Phillips MD [address] [employer] [place] [address] 01/01/2024 12:00 PM EDT Office Visit Gastroenterology [address] [place] [address] Sheryl Low CRNP [address] [place] [address] 05/24/2024 9:00 AM EDT Office Visit Cardiology [address] [place] [address] Quinn Uriostegui PA-C [address] [place] [address] 10/18/2024 12:30 PM EDT Imaging Radiology [address] [place] [address] Scheduled Procedures Name Priority Associated Diagnoses Date/Ti me COLONOSCOPY FLEXIBLE PROXIMAL DIAGNOSTIC Recall History of colon polyps Health Maintenance Due Date Last Done Comments DISCUSS TOBACCO CESSATION (REFER TO SMARTSET #9778) 1965 COVID-19 Vaccine (#1) 1970 Hepatitis B [...] this encounter Medical Devices Implanted Type Area Resource Paraprofessional Device Identifier Shelf Expiration Date Model / Serial / Lot Alfonzo Arthrodesis Nail, Left Implanted:Qty: 1 [place] [facility] [place] Left: Leg Upper ALFONZO 04/01/2016 7870-4212 S / / [id number] Screw Locking 1896-5035s - [id number] Implanted:Qty: 1 on 06[place]10/2012 [place] [facility] [place]: Leg Upper ALFONZO : TRAUMA 08/29/2013 7193-4805 S / / [id number] Screw Locking 1896-5030s - [id number] Implanted:Qty: 1 on 06/10/2012 [place] [facility] [place]FONZO : TRAUMA 04/29/2013 8755-4820 S / / [id number] Screw Threaded Lckg 5x42.5mm - [id number] Implanted:05/31 (Quantity not on file) Left: Leg Upper ALFONZO : ORTHOPAEDICS 12/31/2015 5013-6886 S / / [id number] Screw Locking 1896-5040s - [id number] Implanted:Qty: 1 on 06/10/2012 [place] [facility] [place]: Leg Upper ALFONZO : TRAUMA 07/30/2014 1315-5545 S / / [id number] Screw Compression 1825-0000s - [id number] Implanted:Qty: 1 on 06/10/2012 [place] [facility] [place]: Leg Upper ALFONZO : TRAUMA 12/30/2012 9940-2381 S / / [id number] Screw Shaft 1891-5045s - [id number] Implanted:Qty: 1 on 06/10/2012 [place] [facility] [place]: Leg Upper ALFONZO : ORTHOPAEDICS 12/31/2015 3264-1099 S / / [id number] Mesh Vicryl 12 X 12 Vkm-L - [id number] Implanted:Qty: 1 on 04/25/2020 by Dejuan Kaufman [place] [facility] [place]A: Abdomen JNJ : [employer] 04/29/2024 VKM-L / / [id number] Mesh Soft [id number] - [id number] Implanted:Qty: 1 on 04/25/2020 by Dejuan Kaufman MD [place] [facility] [place]A: Abdomen CR BARD : DAVOL [id number] 07/27/2024 [id number] / / [id number] documented as of this encounter Procedures Procedure Name Priority Date/Time Associated Diagnosis Comments RADIOLOGY EXAM - MAMMOGRAPHY (IMAGES ONLY, NO REPORT) Routine 08/18/2017 7:55 AM EDT documented in this encounter Results * RADIOLOGY EXAM - MAMMOGRAPHY (IMAGES ONLY, NO REPORT) (08/18/2017 7:55 AM EDT) 08/18/2017 7:55 AM EDT Narrative Scheduling, Silent - 10/23/2023 2:36 PM EDT This is an imaging study not interpreted or resulted by a [facility] or [facility] contracted radiologist. Lizzie PURDY RAD MAMMOGRAPHY documented in this encounter Advance [...] Directives occurred with: Not Discussed Care Teams Discharge Specialist Relationship Specialty Start Date End Date Shazia Bee MD [address] [place] [address] [place] [address] PCP - General Family Medicine 08/22/13 09/11/23 documented as of this encounter
--- OUTSIDE RECORDS SUMMARY | 2024-04-01 20:52 | External Medical Summary ---
Author Name Unknown Address Unknown Organization K01:LABORATORY [facility] - [address] [place] [address] Laboratory Report Ordering Provider Test Date Status STEPHANI ECHEVERRIA 10/08/2023 09:40:28 Final Observation Date Value Abnormality Reference (Units ) Status Triglyceride 10/08/2023 09:40:28 203 Above high normal <=174 (mg/dL) Final Triglyceride Reference Range s (mg/dL):
<150 Acceptable
150-174 Borderline high
175-499 High
>=500 Very high Cholesterol 10/08/2023 09:40:28 192 <200 (mg /dL) Final Total Cholesterol Reference Ranges (mg/dL):
<200 Desirable
200-239 Borderline high
>=240 High HDL 10/08/2023 09:40:28 79 >49 (mg/dL ) Final HDL Cholesterol Reference Ra nges (mg/dL):
>=60 High (Desirable)
<50 Low (Undesirable) For Females
<40 Low (Undesirable) For Males NON-HDL CHOLESTEROL 10/08/2023 09:40:28 113 <=159 (mg/dL) Final Non-HDL Cholesterol Referenc e Range (mg/dL):
<100 Target level for high risk ASCVD patient
<130 Optimal for general population
130-159 Near optimal for general population
160-189 Borderline High
190-219 High
>=220 Very High Performing Location LAB[facility]ORY [facility] - [address] [place] [address]
--- OUTSIDE RECORDS SUMMARY | 2024-04-01 20:53 | External Medical Summary | Summary of Care ---
Author Name Unknown Organization [facility] Address [address] [facility] [place] [address] Phone [phone] Care Team Providers Care Signals Intelligence Superintendent Name Role Phone Unavailable Primary Care Provider Unavailabl e Encounter Details Date Type Department Care Team (Late st Contact Info) Description 10/07/2023 Orders Only PATIENT PORTAL DO NOT DELETE THIS DEPT USED BY [place] [id number] Allergies No known active allergiesdocumented as of [...] on tongue. 30 Tablet 5 05/06/2022 Active Atorvastatin Calcium 40 MG Oral Tablet (Lipitor) TAKE 1 TABLET BY MOUTH EVERY MORNING 90 Tablet 1 07/13/2022 Active Furosemide 40 MG Oral Tablet (Lasix)Indications:B ilateral lower extremity edema TAKE ONE TABLET BY MOUTH DAILY NEEDED for swelling 90 Tablet 1 04/03/2023 Active Hydrocortisone 5 MG Oral Tablet (Cortef)Indications: [...] chew the tablet. 30 Tablet 09/25/2023 Active documented as of this encounter (statuses [...] Dr. Shima [facility]- Keri Austyn ([phone]) [facility]- Cate Trinidad ([phone]) [facility]- Julia Villafana ([phone]) Diagnosis changed due to Research Module. Go to Snapshot for study details. Anxiety 04/26/2015 11/20/2016 Recurrent major depressive disorder 04/14/2014 06/21/2019 Adrenal insufficiency 12/12/20132016 FORCE TJR RESEARCH OTHER*[id number] 11/02/2013 03/19/2016 Overview: Patient has completed participation [...] Next Due Pneumococcal Conjugate Vacci ne, 20-valent ([id number]) 11/15/2021 Pneumococcal Polysaccharide PPV23 (Pneumovax) 06/26/2008 Seasonal [...] 10/08/2023 9:00 AM EDT Office Visit Cardiology [address] [place] [address] Quinn Uriostegui PA-C [address] [place] [address] 10/15/2023 12:30 PM EDT Imaging Radiology [address] [place] [address] 11/13/2023 9:15 AM EDT Office Visit Dermatology [facility] [place] [address] Adebayo Pressley MD 200 [facility] [place] [address] 11/16/2023 10:40 AM EDT Office Visit Nutrition & Weight Management, [facility] [address] [place] [address] Tiara Gautam PA-C [address] [place] [address] 12/31/2023 8:40 AM EDT Office Visit Rheumatology [address] [place] [address] Isidro Phillips MD [address] [place] [address] [place] [address] 02/19/2024 9:30 AM EST Office Visit Gastroenterology [address] [place] [address] Sheryl Low CRNP [address] [place] [address] Scheduled Procedures Name Priority Associated Diagnoses Date/Ti me COLONOSCOPY FLEXIBLE PROXIMAL DIAGNOSTIC Recall History of colon polyps Health Maintenance Due Date Last Done Comments DISCUSS TOBACCO CESSATION (REFER TO SMARTSET #9834) 1965 COVID-19 Vaccine (#1) 1970 Hepatitis B [...] this encounter Medical Devices Implanted Type Area Qa Test Lead Device Identifier Shelf Expiration Date Model / Serial / Lot [place] Arthrodesis Nail, Left Implanted:Qty: 1 on 06/10/2012 [place] [facility] [place] - Non Human Left: Leg Upper ALFONZO 04/01/2016 2926-1255 S / / [id number] Screw Locking 1896-9692s - [id number] Implanted:Qty: 1 on 06/10/2012 at [place] [facility] [place] Left: Leg Upper ALFONZO : TRAUMA 08/29/2013 7122-1344 S / / [id number] Screw Locking 1896-5030s - [id number] Implanted:Qty: 1 on 06/10/2012 at [place] [facility] [place] ALFONZO : TRAUMA 04/29/2013 6486-8754 S / / [id number] Screw Threaded Lckg 5x42.5mm - [id number] Implanted:05/31 (Quantity not on file) Left: Leg Upper ALFONZO : ORTHOPAEDICS 12/31/2015 1915-6513 S / / [id number] Screw Locking 1896-5040s - [id number] Implanted:Qty: 1 on 06/10/2012 at [place] [facility] [place] Left: Leg Upper ALFONZO : TRAUMA 07/30/2014 2768-0530 S / / [id number] Screw Compression 1825-0000s - [id number] Implanted:Qty: 1 on 06/10/2012 at [place] [facility] [place] Left: Leg Upper ALFONZO : TRAUMA 12/30/2012 0600-5670 S / / [id number] Screw Shaft 1891-5045s - [id number] Implanted:Qty: 1 on 06/10/2012 at [place] [facility] [place] Left: Leg Upper ALFONZO : ORTHOPAEDICS 12/31/2015 4722-0239 S / / [id number] Mesh Vicryl 12 X 12 Vkm-L - [id number] Implanted:Qty: 1 on 04/25/2020 by Dejuan Kaufman MD at [place] [facility] [place] N/A: Abdomen JNJ : [employer] 04/29/2024 VKM-L / / [id number] Mesh Soft 34u45qy - [id number] Implanted:Qty: 1 on 04/25/2020 by Dejuan Kaufman MD at [place] [facility] [place] N/A: Abdomen CR BARD : DAVOL [id number] 07/27/2024 [id number] / / [id number] documented as of this encounter Advance Directives [...]
[2024-04-01] MEDS: oxyCODONE HCL IR 5 MG TAB (IMMEDIATE RELEASE) PO PRN (21:49)
[2024-04-01] MEDS: POTASSIUM CHLORIDE 10 MEQ TABCR PO SCH (21:50)
[2024-04-01] MEDS: GABAPENTIN 400 MG CAP PO SCH (21:50)
[2024-04-01] MEDS: HYDROXYCHLOROQUINE SULFATE 200 MG TAB PO SCH (21:51)
[2024-04-01] MEDS: PANTOprazole 40 MG TAB PO SCH (21:51)
[2024-04-01] MEDS: TRIAMCINOLONE ACET 0.5% CR 15 GM TUBE TOP SCH (21:51)
[2024-04-01] MEDS: MIRTAZAPINE TAB 15 MG TAB PO SCH (21:52)
[2024-04-01] MEDS: rOPINIRole HCL 2 MG TABLET PO SCH (21:53)
[2024-04-01] MEDS: HEPARIN SOD 5,000 UNIT/0.5 ML VIAL SQ SCH (21:57)
--- OUTSIDE RECORDS SUMMARY | 2024-04-02 05:53 | External Medical Summary | Summary of Care ---
Author Name Unknown Organization [facility] Address [address] [facility] [place] [address] Phone [phone] Care Team Providers Care Jalousies Installer Name Role Phone Shazia Bee MD Primary Care Provide r Reason for Visit * Reason Comments eRx-Medication Refill Encounter Details Date Type Department Care Team (Late st Contact Info) Description 04/01/2024 Refill Family Medicine [address] [phone] Shazia Bee MD [address] [place] [address] [place] [address] Lumbar degenerative disc disease Allergies No known active allergiesdocumented as of this encounter (statuses as of 04/01/2024) Medications BLOOD PRESSURE CUFF MISCIndications:F all for [...] 6 PM) 270 Tablet 3 024 Active Atorvastatin Calcium 40 [...] NEEDED, AND AT BEDTIME, Reported on 03/07/2024 Betamethasone Dipropionate 0.05 % External Cream (Diprosone) Apply topically to affected area 2 times a day. To affected area. Maximum 2 weeks at a time 45 g 3 025 Active Wegovy 0.5 MG/0.5ML Subcutaneous Solution Auto-injector (Semaglutide-Weig ht Management)Indica tions:Obesity (BMI 30-39.9) Inject 0.5 mg (1 pen) under the skin once a week. 2 mL 1 5 2:38 PM EST 025 Active Trulance 3 MG Oral Tablet (Plecanatide) TAKE ONE TABLET BY MOUTH EVERY DAY 30 Tablet 025 Active Potassium Chloride ER 10 MEQ Oral Capsule Extended ReleaseIndication s:Hypokalemia Take 1 Capsule by mouth in the morning and 1 Capsule before bedtime. 180 Capsule 1 025 Active Hydroxychloroquin e Sulfate 200 MG Oral Tablet (Plaquenil)Indica tions:Cutaneous lupus erythematosus 2 tablets each evening 180 Tablet 1 025 Active Baclofen 20 MG Oral TabletIndications :Lumbar degenerative disc disease TAKE ONE TABLET BY MOUTH IN THE MORNING, at noon, and before bedtime if needed for muscle spasms 90 Tablet 1 025 Active Baclofen 20 MG Oral TabletIndications :Lumbar degenerative disc disease TAKE ONE TABLET BY MOUTH IN THE MORNING, at noon, and before bedtime if needed for muscle spasms 90 Tablet 025 2024 Discontinued documented as of this encounter (statuses as of 04/01/2024) Active Problems Problem Noted Date Diagnosed Date [...] as of this encounter (statuses as of 04/01/2024) Resolved Problems Problem Noted Date Diagnosed Date [...] Dr. Shima De Jesus [facility]- Keri Zaman ([phone]) [facility]- Cate Trinidad ([phone]) [facility]- Julia Villafana ([phone]) Diagnosis changed due to Research Module. Go to Snapshot for study details. Anxiety 04/26/2015 11/20/2016 Recurrent major depressive disorder 04/14/2014 06/21/2019 Adrenal insufficiency 12/12/20132016 [facility] OTHER*[id number] 11/02/2013 03/19/2016 Overview (03/19/2016): Patient has completed [...] as of this encounter (statuses as of 04/01/2024) Immunizations Name Administration Dates Next Due Hepatitis B, 20+ yrs 03/07/2024 Pneumococcal Conjugate Vacci ne, 20-valent ([id number]) 11/15/2021 Pneumococcal Polysaccharide PPV23 (Pneumovax) 06/26/2008 Seasonal [...] Telephone Encounter - Shazia Bee MD - 04/01/2024 2:16 PM EST Signed Prescriptions: Disp Refills Baclofen 20 MG Oral Tablet 90 Tab*1 Sig: TAKE ONE TABLET BY MOUTH IN THE MORNING, at noon, and before bedtime if needed for muscle spasms Authorizing Provider: SHAZIA BEE * Telephone Encounter - Harpal Jo [facility] - 04/01/2024 1:59 PM EST Pending Prescriptions: Disp Refills Baclofen 20 MG Oral Tablet 90 Tab* Sig: TAKE ONE TABLET BY MOUTH IN THE MORNING, at noon, and before bedtime if needed for muscle spasms documented in this encounter Plan of Treatment Upcoming Encounters Date Type Department Care Team (Late st Contact Info) Description 04/27/2024 1:40 PM EST Office Visit Family Medicine [address] [phone] Arlet Groves MD [address] [place] [address] [place] [phone] 05/24/2024 9:00 AM EDT Office Visit Cardiology [address] [place] [phone] Quinn Uriostegui, PAOpalC [address] [place] [address] 06/20/2024 8:40 AM EDT Office Visit Neurology [facility] [address] [facility] [place] [address] Cesar Palma MD [address] [place] [address] 10/18/2024 12:30 PM EDT Imaging Radiology [address] [place] [phone] 01/30/2025 1:20 PM EST Office Visit Rheumatology [facility] [address] [place] [phone] Isidro Phillips MD [address] [place] [address] [place] [address] 03/15/2025 3:40 PM EST Office Visit Dermatology [address] [place] [phone] Zonia Jordan PA-C [address] [place] [address] [place] [phone] Health Maintenance Due Date Last Done Comments COVID-19 Vaccine (#1) 1970 Fecal Occult Blood Test 2010 Sigmoidoscopy 2010 CKD PHOS USE SMARTSET 25416 04/30/2021 03/0 03/2020, 04/29/2020, 04/28/2020, Additional history exists Cologuard 06/02/2021 06/02/2018 Hepatitis B Vaccine (2 of 3 - 19+ 3-dose series) 04/04/2024 03/07/2024 GFR 07/19/2024 01/20/2024, 08/01, 06/22/2023, Additional history exists Mammogram 10/14/2024 10/15/2023, 10/01, 08/30/2021, Additional history exists Albumin/Creatinine Ratio 01/19/2025 01/20/2024 DISCUSS TOBACCO CESSATION (REFER TO SMARTSET #3291) 01/24/2025 01/25/2024 (Discussed) Depression Monitoring 01/24/2025 01/25/2024 CKD HGB USE SMARTSET 43324 03/30/202503/30, 03/30/2024, 12/28/2023, Additional history exists Diabetes [...] this encounter Medical Devices Implanted Type Area Library Historian Device Identifier Shelf Expiration Date Model / Serial / Lot [place] Arthrodesis Nail, Left Implanted:Qty: 1 on 06/10/2012 at [place] [facility] Tissue - Non Human Left: Leg Upper ALFONZO 04/01/2016 [id number] S / / [id number] Screw Locking 1896-5035s - [id number] Implanted:Qty: 1 on 06/10/2012 at [place] [facility] Left: Leg Upper ALFONZO : TRAUMA 08/29/2013 [id number] S / / [id number] Screw Locking 1896-5030s - [id number] Implanted:Qty: 1 on 06/10/2012 at [place] [facility] ALFONZO : TRAUMA 04/29/2013 [id number] S / / [id number] Screw Threaded Lckg 5x42.5mm - [id number] Implanted:05/31 (Quantity not on file) Left: Leg Upper ALFONZO : ORTHOPAEDICS 12/31/2015 [id number] S / / [id number] Screw Locking 1896-5040s - [id number] Implanted:Qty: 1 on 06/10/2012 at [place] [facility] Left: Leg Upper ALFONZO : TRAUMA 07/30/2014 [id number] S / / [id number] Screw Compression 1825-0000s - [id number] Implanted:Qty: 1 on 06/10/2012 at [place] [facility] Left: Leg Upper ALFONZO : TRAUMA 12/30/2012 [id number] S / / [id number] Screw Shaft 1891-5045s - [id number] Implanted:Qty: 1 on 06/10/2012 at [place] [facility] Left: Leg Upper ALFONZO : ORTHOPAEDICS 12/31/2015 [id number] S / / [id number] Mesh Vicryl 12 X 12 Vkm-L - [id number] Implanted:Qty: 1 on 04/25/2020 by Dejuan Kaufman MD at OR [facility] N/A: Abdomen JNJ : [employer] 04/29/2024 VKM-L / / [id number] Mesh Soft [id number] - [id number] Implanted:Qty: 1 on 04/25/2020 by Dejuan Kaufman MD at OR [facility] N/A: Abdomen CR BARD : DAVOL [id number] 07/27/2024 [id number] / / [id number] documented as of this encounter Visit Diagnoses [...] Directives occurred with: Not Discussed Care Teams Jalousies Installer Relationship Specialty Start Date End Date Shazia Bee MD [address] [place] [address] [place] [phone] PCP - General Family Medicine 10/30/23 documented as of this encounter
[2024-04-02 07:25] LABS: Basophils # (auto) 0.02 K/uL (0.00-0.20); Basophils % (auto) 0.3 %; Eosinophils # (auto) 0.01 K/uL (0.00-0.50); Eosinophils % (auto) 0.1 %; Hematocrit (blood only) 46.1 % (37.0-47.0); Hemoglobin 15.9 g/dl (12.0-16.0); Immature Granulocytes # (auto) 0.02 K/uL (0.01-0.20); Immature Granulocytes % (auto) 0.3 %; Lymphocytes # (auto) 1.43 K/uL (1.20-3.40); Lymphocytes % (auto) 20.3 %; Mean Corpuscular Hemoglobin 28.7 pg (25.0-34.0); Mean Corpuscular Hgb Conc 34.5 g/dL (32.0-36.0); Mean Corpuscular Volume 83.2 fL (80.0-100.0); Mean Platelet Volume 10.3 fL (9.4-12.4); Monocytes # (auto) 0.51 K/uL (0.11-0.59); Monocytes % (auto) 7.2 %; Neutrophils # (auto) 5.05 K/uL (1.40-6.50); Neutrophils % (auto) 71.8 %; Platelet Count 313 K/uL (130-400); RDW Coefficient of Variation 14.4 % (11.5-14.5); RDW Standard Deviation 43.5 fL (36.4-46.3); Red Blood Count 5.54 M/uL (4.20-5.40); White Blood Count 7.04 K/ul (4.8-10.8)
[2024-04-02 07:46] LABS: Albumin Globulin Ratio 1.5 (0.9-2); Albumin Level 4.3 gm/dl (3.4-5.0); BUN Creatinine Ratio 24.7 (10-20); Bilirubin,Total 0.4 mg/dl (0.2-1.0); Calcium 9.9 mg/dl (8.6-10.3); Creatinine Clr Calc Pharmacy 87.8 ml/min; Globulin 2.8 gm/dl (2.5-4.0); Potassium 4.3 mmol/L (3.5-5.1); Total Protein 7.1 gm/dl (6.0-8.3)
[2024-04-02] MEDS: MIDODRINE HCL 10 MG TAB PO SCH (07:50)
[2024-04-02] MEDS: DULoxetine HCL 60 MG CAP PO SCH (07:51)
[2024-04-02] MEDS: ATORVASTATIN 40 MG TAB PO SCH (07:52)
--- NOTE | 2024-04-02 08:46 | Orthopedic Consultation ---
Date of Consultation April 02, 2024 Assessment & Plan (1) Decreased sensation: MRIs of the thoracic and lumbar spine available for review. They demonstrate normal age-related findings as well as evidence of the previous fusion L4-S1. However I do not appreciate any cord compression or peripheral nerve compression that would account for her presentation. I have ordered an MRI of the cervical spine to rule out any cord issues at this level. Would welcome neurology's input. History of Present Illness Reason for Consultation: Bilateral leg numbness and weakness Attending Physician: Adrian Holly MD History of Present Illness This is a 58-year-old female known to me from having undergone a previous lumbar decompression and fusion several years ago. She presents yesterday with the onset of dense right leg numbness. She states that the numbness begins in lower abdominal region and bilateral lower extremities. She has a history of left leg numbness. She has history of the left knee fusion. She notes some strength deficits concordant with this. She has some back pain. Denies any precipitating trauma fall or event of any changes in diet or medications. She denies any cervicalgia or upper extremity symptoms. Allergies Allergy/AdvReac Type Severity Reaction Status Date / Time No Known Allergies Allergy Verified 12/11/20 08:46 Home Medications Medication Instructions Recorded Confirmed Type aspirin 81 mg tablet,delayed 81 mg PO DAILY 04/01/24 04/01/24 History release atorvastatin 40 mg tablet (Lipitor) 40 mg PO DAILY 04/01/24 04/01/24 History baclofen 20 mg tablet 20 mg PO TID 04/01/24 04/01/24 History betamethasone dipropionate 0.05 % 1 applic topical BID 04/01/24 04/01/24 History topical cream duloxetine 60 mg capsule,delayed 60 mg PO DAILY 04/01/24 04/01/24 History release furosemide 40 mg tablet (Lasix) 40 mg PO DAILY PRN swelling 04/01/24 04/01/24 History gabapentin 400 mg capsule 400 mg PO TID 04/01/24 04/01/24 History hydrocortisone 5 mg tablet See Rx Instructions .Route .COMPLEX 04/01/24 04/01/24 History hydroxychloroquine 200 mg tablet 400 mg PO HS 04/01/24 04/01/24 History hydroxyzine HCl 25 mg tablet 25 mg PO TID PRN Anxiety 04/01/24 04/01/24 History midodrine 10 mg tablet 10 mg PO TID 04/01/24 04/01/24 History mirtazapine 7.5 mg tablet 7.5 mg PO HS 04/01/24 04/01/24 History pantoprazole 40 mg tablet,delayed 40 mg PO BID 04/01/24 04/01/24 History release plecanatide 3 mg tablet (Trulance) 3 mg PO DAILY 04/01/24 04/01/24 History potassium chloride 10 mEq 10 meq PO BID 04/01/24 04/01/24 History capsule,extended release ropinirole 2 mg tablet 2 mg PO HS 04/01/24 04/01/24 History semaglutide (weight loss) 0.25 0.5 mg subcut WK 04/01/24 04/01/24 History mg/0.5 mL subcutaneous pen injector (Wegovy) trazodone 100 mg tablet 100 mg PO HS 04/01/24 04/01/24 History Patient History Medical History (Updated 04/01/24 @ 19:54 by Hong Bobo MD) Poor historian Necrotizing fasciitis Rectal bleeding complaints after lap babita (11/2019) > [place] CTS with evidence of right buttocks necrotizing fasciitis > life flighted [place] [facility], debridement/colostomy, I&D > subsequent colostomy reversal, no recent issues Rheumatoid arthritis Osteoarthritis Chronic back pain Cervical/lumbar region [place] disease Monitored by PCP (per 05/2020 note, "stable. Continue midodrine for hypotension. Not currently on steroids.") Chronic headaches Follows with Dr. Orellana Reflex sympathetic dystrophy Hx (reason for LLE ana cristina) Depression Anxiety Orthostatic hypotension Surgical History History of appendectomy Per [facility] records History of colon surgery Takedown loop sigmoid colostomy, sigmoid colectomy with colocolonic anastomosis per [facility] records History of laparotomy History of cholecystectomy Lap cholecystectomy (10/24/19): Grade view 1, Woodson#2, ETT 7.0 at [facility] History of colonoscopy History of knee surgery x4 (including LLE ana cristina) History of hysterectomy + USO H/O section x3 Family History Father Arthritis Cardiac disorder Hypertension Thyroid disease Cancer Mother Thyroid disease Hypertension Kidney disease Cancer Social History (Updated 11/23/20 @ 16:03 by Nicki Peterson RN) Smoking Status: Current every day smoker Tobacco Type: Cigarettes Cigarettes Per Day: 1 pack/day; Second Hand Exposure: Yes (PARENTS SMOKED); Do You Dip or Chew Tobacco: No; Hx Alcohol Use: No Hx Substance Use: No Preferred Language: Guinean Communication Ability: Effective Client Specialist Required: No Beliefs That Will Affect Care: None Current Living Situation: Family Current Living Situation Comment: granddaughter lives with her current occupational status: disabled Feels Safe at Home: Yes Safety Concerns: Feels Safe At This Time Assistive Devices: Cane Physical Exam Physical Exam: On exam she has significant lack of sensation to cold and light touch bilateral extremities. She has reasonable plus 5 out of 5 right dorsiflexion plantarflexion quadriceps. On the left she has a fused knee. Dorsiflexion plantarflexion intact albeit weak. She was able to sit up for me. There is no abnormal skin markings to the thoracolumbar spine. There are some tenderness palpation lumbar musculature. She exhibits excellent strength testing upper extremities. There is no evidence of Lhermitte's phenomenon or Spurling sign. Results & Data Vital Signs (Past 12 Hours) Vital Signs Temp Pulse Pulse Resp BP Pulse Ox O2 Del Method 04/02/24 07:26 36.7 C 80 20 120/80 92 Room Air 04/02/24 03:38 36.5 C 96 H 18 120/81 92 Room Air 04/01/24 21:58 70
[2024-04-02] MEDS: HYDROCORTISONE 10 MG TAB PO SCH (12:30)
--- NOTE | 2024-04-02 12:52 | Magnetic Resonance Report ---
EXAM: MR cervical spine wo con CLINICAL HISTORY: leg weakness TECHNIQUE: MRI of the cervical spine was performed. Sequences obtained include sagittal T1-weighted, T2-weighted, STIR (Short Tau Inversion Recovery), and axial T2-weighted sequences. COMPARISON: Comparison is made with prior imaging studies dated X-ray 11/30/2020. FINDINGS: Vertebral Alignment: Straightening of cervical curvature due to severe muscular spasm. Mild retrolisthesis C5 over C6 and C6 over C7 noted. No evidence of fracture or subluxation. Vertebral Bodies and Intervertebral Discs: Normal vertebral body height and alignment. Intervertebral discs demonstrate significant disc dessicatory changes with reduced disc height at C4-C5, C5-C6, and C6-C7 levels. Rgahu-gy-czwaw analysis: C2-C3: There is no significant disc pathology. Normal morphology of the ligamentum flava. No arthropathy of the uncovertebral and zygapophyseal joints. No significant spinal canal stenosis C3-C4: There is a 3.5 mm bi-posterolateral disc bulge/osteophyte complex compressing the exiting nerve roots and causing bilateral mild to moderate neural foraminal stenosis. Moderate arthropathy of the uncovertebral and zygapophyseal joints. No significant spinal canal stenosis. C4-C5: There is a 2 mm diffuse disc bulge/osteophyte complex indenting the anterior thecal sac and causing bilateral mild neural foraminal stenosis. Normal morphology of the ligamentum flava. No arthropathy of the uncovertebral and zygapophyseal joints. No significant spinal canal stenosis. C5-C6: There is a 6 mm broad-based asymmetric disc bulge/osteophyte complex obliterating the ventral thecal sac more so in the right half, causing moderate spinal canal stenosis and bilateral marked neural foraminal stenosis. There is also obliteration of the right neural foramen, compressing the right exiting nerve root moderately. Ligamentum flava hypertrophy noted. Moderate arthropathy of the uncovertebral and zygapophyseal joints. C6-C7: There is a 4 mm broad-based central asymmetric disc bulge obliterating ventral thecal sac causing mild spinal canal stenosis and moderate to marked neural foraminal stenosis. Ligamentum flava hypertrophy noted. Moderate arthropathy of the uncovertebral and zygapophyseal joints. C7-T1: There is no significant disc pathology. Normal morphology of the ligamentum flava. No arthropathy of the uncovertebral and zygapophyseal joints. No significant spinal canal stenosis A small right foraminal perineural cyst was noted. Spinal Cord and Nerve Roots: The spinal cord demonstrates altered signal intensity at the C5-C6 level. Soft Tissues: Paraspinal soft tissues appear normal without evidence of abnormal signal intensity or mass lesions. IMPRESSION: 1. Straightening of cervical curvature due to muscular spasm. Stable 2. Multilevel disc bulges with spinal canal and neural foraminal stenosis. 3. 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 New 4. A small right foraminal perineural cyst was noted at the C7-T1 level. New interval. 5. Mild retrolisthesis C5 over C6 and C6 over C7 noted. Stable. Electronically signed by Mel Cornejo 04-02-2024 12:52 PM
--- NOTE | 2024-04-02 14:29 | Neurology Consultation ---
Date of Consultation April 02, 2024 Assessment & Plan (1) Decreased sensation: Tracy Benavides is an 58 yo F presenting with cervical cord compression with signal change resulting in LLE weakness and numbness below mid chest. Agree with ortho spine involvement for further management. No further neurologic workup recommended at this time. We will sign off. Telehealth Consultation Telehealth Information Telehealth Information: I performed this visit using a real-time telehealth connection between my location and the patients location ([facility]). After connecting through interactive tele-video, patient was identified by name and date of and/or wristband check.Patient (or authorized healthcare food products sales representative) was informed that this was a telemedicine visit and it was being conducted confidentially over secure lines. My office door was closed and no one else was present in the room with me.Patient (or authorized healthcare food products sales representative) provided consent to proceed with the visit, expressed an understanding of privacy and security of the telemedicine visit, and gave permission to have a hospital food products sales representative in the room in order to assist with the visit and to conduct portions of the visit, as needed. I informed the patient (or authorized healthcare food products sales representative) that I reviewed their record and presented the opportunity for them to ask any questions regarding the visit today. The patient agreed to participate. History of Present Illness Reason for Consultation: LE numbness and weakness Requesting Physician: Dr. Holly Attending Physician: Adrian Holly MD History of Present Illness Tracy Benavides is a 58 yo F presenting with lower body and leg numbness and weakness. She reports no preceding trauma but woke up with these symptoms. She describes complete numbness from the mid chest down through both legs and is unable to lift the L leg. No arm symptoms, no neck pain, no bowel or bladder concerns. She denies any respiratory or swallowing difficulties. Allergies Allergy/AdvReac Type Severity Reaction Status Date / Time No Known Allergies Allergy Verified 12/11/20 08:46 Home Medications Medication Instructions Recorded Confirmed Type aspirin 81 mg tablet,delayed 81 mg PO DAILY 04/01/24 04/01/24 History release atorvastatin 40 mg tablet (Lipitor) 40 mg PO DAILY 04/01/24 04/01/24 History baclofen 20 mg tablet 20 mg PO TID 04/01/24 04/01/24 History betamethasone dipropionate 0.05 % 1 applic topical BID 04/01/24 04/01/24 History topical cream duloxetine 60 mg capsule,delayed 60 mg PO DAILY 04/01/24 04/01/24 History release furosemide 40 mg tablet (Lasix) 40 mg PO DAILY PRN swelling 04/01/24 04/01/24 History gabapentin 400 mg capsule 400 mg PO TID 04/01/24 04/01/24 History hydrocortisone 5 mg tablet See Rx Instructions .Route .COMPLEX 04/01/24 04/01/24 History hydroxychloroquine 200 mg tablet 400 mg PO HS 04/01/24 04/01/24 History hydroxyzine HCl 25 mg tablet 25 mg PO TID PRN Anxiety 04/01/24 04/01/24 History midodrine 10 mg tablet 10 mg PO TID 04/01/24 04/01/24 History mirtazapine 7.5 mg tablet 7.5 mg PO HS 04/01/24 04/01/24 History pantoprazole 40 mg tablet,delayed 40 mg PO BID 04/01/24 04/01/24 History release plecanatide 3 mg tablet (Trulance) 3 mg PO DAILY 04/01/24 04/01/24 History potassium chloride 10 mEq 10 meq PO BID 04/01/24 04/01/24 History capsule,extended release ropinirole 2 mg tablet 2 mg PO HS 04/01/24 04/01/24 History semaglutide (weight loss) 0.25 0.5 mg subcut WK 04/01/24 04/01/24 History mg/0.5 mL subcutaneous pen injector (Wegovy) trazodone 100 mg tablet 100 mg PO HS 04/01/24 04/01/24 History Patient History Medical History (Updated 04/01/24 @ 19:54 by Hong Bobo MD) Poor historian Necrotizing fasciitis Rectal bleeding complaints after lap babita (11/2019) > [place] CTS with evidence of right buttocks necrotizing fasciitis > life flighted to [facility], debridement/colostomy, I&D > subsequent colostomy reversal, no recent issues Rheumatoid arthritis Osteoarthritis Chronic back pain Cervical/lumbar region [place] disease Monitored by PCP (per 05/2020 note, "stable. Continue midodrine for hypotension. Not currently on steroids.") Chronic headaches Follows with Dr. Orellana Reflex sympathetic dystrophy Hx (reason for LLE ana cristina) Depression Anxiety Orthostatic hypotension Surgical History History of appendectomy Per [facility] records History of colon surgery Takedown loop sigmoid colostomy, sigmoid colectomy with colocolonic anastomosis per [facility] records History of laparotomy History of cholecystectomy Lap cholecystectomy (10/24/19): Grade view 1, Woodson#2, ETT 7.0 at [facility] History of colonoscopy History of knee surgery x4 (including LLE ana cristina) History of hysterectomy + USO H/O section x3 Family History Father Arthritis Cardiac disorder Hypertension Thyroid disease Cancer Mother Thyroid disease Hypertension Kidney disease Cancer Social History (Updated 11/23/20 @ 16:03 by Nicki Peterson RN) Smoking Status: Current every day smoker Tobacco Type: Cigarettes Cigarettes Per Day: 1 pack/day; Second Hand Exposure: Yes (PARENTS SMOKED); Do You Dip or Chew Tobacco: No; Hx Alcohol Use: No Hx Substance Use: No Preferred Language: [place] Communication Ability: Effective Mushroom Laborer Required: No Beliefs That Will Affect Care: None Current Living Situation: Family Current Living Situation Comment: granddaughter lives with her current occupational status: disabled Feels Safe at Home: Yes Safety Concerns: Feels Safe At This Time Assistive Devices: Cane Review of Systems +lower extremity numbness Physical Exam Neurological Examination: Mental Status: Awake and alert. Oriented to person, place, and time. Fluent. Comprehension intact. Affect appropriate. Cranial Nerves: II: pupils 3/3 to 2/2, zhang grossly intact. III/IV/: Versions intact without nystagmus, no gaze preference. V: Facial sensation symmetric to light touch VII: Facial expression symmetric VIII: Hearing intact to voice IX/X: Palate elevates symmetrically XI: Shoulder shrug symmetric XII: Tongue midline Motor: Strength was symmetric and antigravity throughout. Pronator drift was absent. There were no abnormal movements. Sensory: Sensation reduced from mid chest down through legs Results & Data Vital Signs (Past 12 Hours) Vital Signs Temp Pulse Pulse Resp BP Pulse Ox O2 Del Method 04/02/24 09:46 78 04/02/24 07:26 36.7 C 80 20 120/80 92 Room Air 04/02/24 03:38 36.5 C 96 H 18 120/81 92 Room Air Laboratory Results Abnormal lab results 04/02/24 Range/Units 06:43 RBC 5.54 H (4.20-5.40) M/uL Chloride 109 H (98-107) mmol/L BUN/Creatinine Ratio 24.7 H (10-20) Glucose 100 H (70-99(Fasting)) mg/dl Alkaline Phosphatase 118 H (34-104) U/L Diagnostic Findings MRI C-spine - cord compression with signal change noted
--- NOTE | 2024-04-02 15:27 | Hospitalist Progress Note ---
Date of Service April 02, 2024 Assessment & Plan (1) Decreased sensation: Plan Past medical history of Brown's disease, hyperlipidemia, orthostatic hypotension, GERD, irritable bowel syndrome, CKD, lumbar degenerative disease, osteoarthritis, lupus, generalized anxiety disorder presented to the hospital for evaluation of decreased sensation gradually progressing from her feet up to mid abdomen since the morning of arrival 04/01. She is being managed for the following: Altered sensorium of Lower extremities Patient presents with pins and needlelike sensation extending from feet up to subxiphoid area gradually over few hours on 04/01 AM. No motor weakness (left leg weakness at baseline). No history of trauma/fall recently. No incontinence s/s. No back /spine pain on exam, no fever. Electrolytes within normal limits. B12 and TSH wnl. CK within normal limits CTA aorta with runoffno acute finding MR L spine and T spine - age related finding as well as evidence of previous fusion of L4-S1. MR C spine w/ c5-6 compressive myelopathy and Multilevel disc bulges with spinal canal and neural foraminal stenosis. d/w orthospine, c/w current mx, possible plan for sx on thursday. Neurochecks PT OT eval Chronic conditions; Lupuscontinue on Plaquenil Brown's diseasecontinue on hydrocortisone GERD continue on Protonix Mood disordercontinue on duloxetine, mirtazapine Orthostatic hypotensioncontinue midodrine Full code DVT prophylaxis heparin Admission and Anticipated Discharge Date Admission Date: April 01, 2024 Subjective Patient was seen and examined at bedside. Patient was sitting up in bed, on room air, NAD, resting comfortably. Patient reports numbness and tingling from mid trunk to down. Patient reports decreased sensation. Patient denies pain. Patient otherwise denies any fever or back pain or incontinence symptoms. Physical Exam Physical Exam: Constitutional: Alert oriented x 3; not in distress. Respiratory: Bilateral vesicular breath sound. Cardiovascular: RRR, no murmur, no edema Vessels: no JVD or carotid bruit Chest: normal inspection of chest Abdomen: normal bowel sounds, soft, nontender, no hepatosplenomegaly Musculoskeletal: no cyanosis or clubbing, extremities motor strength 5/5 No spinal tenderness on exam. Skin: no rashes, warm and dry normal turgor Neurologic: PERRL, EOMI, accommodation nl, no face palsy, no dysarthria Motor strength 5 x 5 in all extremities except left lower extremity. Reports that her left leg is weak at baseline due to " titanium" implant. Decreased sensation to light touch after subxiphoid area. She withdraws to painful stimuli at some areas. Psychiatric: A+Ox3, euthymic affect Results & Data Results & Data Vital Signs (Past 12 Hours) Vital Signs Temp Pulse Pulse Resp BP Pulse Ox O2 Del Method 04/02/24 14:31 83 04/02/24 09:46 78 04/02/24 07:26 36.7 C 80 20 120/80 92 Room Air 04/02/24 03:38 36.5 C 96 H 18 120/81 92 Room Air
[2024-04-02] MEDS: BACLOFEN 10 MG TAB PO PRN (20:33)
[2024-04-03 07:28] LABS: BUN Creatinine Ratio 20.9 (10-20); Calcium 9.7 mg/dl (8.6-10.3); Creatinine Clr Calc Pharmacy 82.8 ml/min; Phosphorus 3.7 mg/dl (2.5-4.9); Potassium 3.9 mmol/L (3.5-5.1)
[2024-04-03 07:35] LABS: Hematocrit (blood only) 45.6 % (37.0-47.0); Hemoglobin 15.5 g/dl (12.0-16.0); Mean Corpuscular Hemoglobin 28.9 pg (25.0-34.0); Mean Corpuscular Volume 85.1 fL (80.0-100.0); Mean Platelet Volume 10.3 fL (9.4-12.4); Platelet Count 274 K/uL (130-400); RDW Coefficient of Variation 14.7 % (11.5-14.5); RDW Standard Deviation 45.5 fL (36.4-46.3); Red Blood Count 5.36 M/uL (4.20-5.40); White Blood Count 8.86 K/ul (4.8-10.8)
--- NOTE | 2024-04-03 11:19 | Orthopedic Progress Note ---
Date of Service April 03, 2024 Assessment & Plan (1) Myelopathy concurrent with and due to spinal stenosis of cervical region: Plan: MRI of the cervical spine obtained yesterday available for review does demonstrate evidence of significant spinal stenosis with evidence of myelomalacia C5-C6. At length discussion today with the patient reviewing her MRI findings and clinical presentation and treatment options. It appears the cord compression in the cervical region is manifested in lower extremity numbness decline in balance and weakness. I am recommending urgent anterior cervical corpectomy of C6. This would allow us to adequately and safely remove disc material and bony spurs from the canal at these levels. Risk benefits pros cons of terms in detail. Risk include but not limited to anesthesia blindness stroke paralysis nerve damage blood loss requiring transfusion infection requiring reoperation dysphonia dysphagia. Best will be stabilization of the cervical spine in the time of improvement of her function. Patient or stands agrees. She was made n.p.o. after midnight. We have held her heparin. Admission and Anticipated Discharge Date Admission Date: April 01, 2024 Subjective Patient continues to note numbness from roughly the xiphoid distally involving both lower extremities. She is able to get to the bathroom with assistance but notes difficulty with balance. She is denying any pain. Physical Exam Physical Exam: On exam I am unable to elicit any upper motor neuron signs to testing the arms however she does exhibit sustained clonus bilateral ankles. Again numbness appreciated to light touch from roughly the xiphoid distally involving both lower extremities. Strength is intact testing lower extremities but are 4-4+ or 5. Results & Data Vital Signs (Past 12 Hours) Vital Signs Temp Pulse Pulse Resp BP Pulse Ox O2 Del Method 04/03/24 11:16 36.6 C 66 20 131/85 95 Room Air 04/03/24 08:19 69 04/03/24 07:40 36.5 C 70 19 125/84 93 Room Air 04/03/24 03:00 36.5 C 71 16 129/77 95 Room Air
--- NOTE | 2024-04-03 13:11 | Hospitalist Progress Note ---
Date of Service April 03, 2024 Assessment & Plan (1) Decreased sensation: Plan Past medical history of Jasper's disease, hyperlipidemia, orthostatic hypotension, GERD, irritable bowel syndrome, CKD, lumbar degenerative disease, osteoarthritis, lupus, generalized anxiety disorder presented to the hospital for evaluation of decreased sensation gradually progressing from her feet up to mid abdomen since the morning of arrival 04/01. She is being managed for the following: C5-C6 compressive myelopathy Patient presents with pins and needlelike sensation extending from feet up to subxiphoid area gradually over few hours on 04/01 AM. No motor weakness (left leg weakness at baseline). No history of trauma/fall recently. No incontinence s/s. No back /spine pain on exam, no fever. Electrolytes within normal limits. B12 and TSH wnl. CK within normal limits CTA aorta with runoffno acute finding MR L spine and T spine - age related finding as well as evidence of previous fusion of L4-S1. MR C spine w/ c5-6 compressive myelopathy and Multilevel disc bulges with spinal canal and neural foraminal stenosis. Plan for surgery tomorrow. Hold heparin. N.p.o. 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 It may contain grammatical, syntax or spelling errors. Any formal questions or concerns about the content, text or information contained within the body of this dictation should be directly addressed to the provider for clarification Admission and Anticipated Discharge Date Admission Date: April 01, 2024 Subjective Patient seen and examined at bedside. She has been able to get out of the bed and walk to the bathroom with assistance. However, sensory symptoms persist but have not progressed. No significant events were Review of Systems Review of Systems: All systems reviewed & are unremarkable except as noted in Subjective Physical Exam Physical Exam: Constitutional: Alert oriented x 3; not in distress. Respiratory: Bilateral vesicular breath sound. Cardiovascular: RRR, no murmur, no edema Vessels: no JVD or carotid bruit Chest: normal inspection of chest Abdomen: normal bowel sounds, soft, nontender, no hepatosplenomegaly Musculoskeletal: no cyanosis or clubbing, extremities motor strength 5/5 Skin: no rashes, warm and dry normal turgor Neurologic: PERRL, EOMI, accommodation nl, no face palsy, no dysarthria Motor strength 5 x 5 in all extremities except left lower extremity. Reports that her left leg is weak at baseline due to fusion Decree sensation to light touch after subxiphoid area. She withdraws to painful stimuli at some areas. Psychiatric: A+Ox3, euthymic affect Results & Data Results & Data Vital Signs (Past 12 Hours) Vital Signs Temp Pulse Pulse Resp BP Pulse Ox O2 Del Method 04/03/24 11:16 36.6 C 66 20 131/85 95 Room Air 04/03/24 08:19 69 04/03/24 07:40 36.5 C 70 19 125/84 93 Room Air 04/03/24 03:00 36.5 C 71 16 129/77 95 Room Air
[2024-04-04] MEDS: hydrOXYzine HCl 25 MG TAB PO PRN ×2 (03:47→20:27)
[2024-04-04 06:09] LABS: Basophils % (auto) 1.2 %; Eosinophils # (auto) 0.41 K/uL (0.00-0.50); Hematocrit (blood only) 48.1 % (37.0-47.0); Hemoglobin 15.8 g/dl (12.0-16.0); Immature Granulocytes # (auto) 0.02 K/uL (0.01-0.20); Immature Granulocytes % (auto) 0.2 %; Lymphocytes # (auto) 3.07 K/uL (1.20-3.40); Lymphocytes % (auto) 37.2 %; Mean Corpuscular Hemoglobin 28.2 pg (25.0-34.0); Mean Corpuscular Hgb Conc 32.8 g/dL (32.0-36.0); Mean Corpuscular Volume 85.9 fL (80.0-100.0); Mean Platelet Volume 10.2 fL (9.4-12.4); Monocytes # (auto) 0.64 K/uL (0.11-0.59); Monocytes % (auto) 7.7 %; Neutrophils # (auto) 4.02 K/uL (1.40-6.50); Neutrophils % (auto) 48.7 %; Platelet Count 258 K/uL (130-400); RDW Coefficient of Variation 14.6 % (11.5-14.5); RDW Standard Deviation 46.3 fL (36.4-46.3); White Blood Count 8.26 K/ul (4.8-10.8)
[2024-04-04 06:22] LABS: BUN Creatinine Ratio 16.7 (10-20); Calcium 9.9 mg/dl (8.6-10.3); Creatinine Clr Calc Pharmacy 74.4 ml/min; Potassium 3.7 mmol/L (3.5-5.1)
[2024-04-04] MEDS ORDERED: ROCURONIUM BROMIDE 10 MG/ML 5 ML VIAL IV ONE ×2 (06:45→08:12)
[2024-04-04] MEDS ORDERED: PROPOFOL IV EMULSION 10 MG/ML 20 ML VIAL IV ONE (06:45)
[2024-04-04] MEDS ORDERED: ONDANSETRON INJ 2 MG/ML 2 ML VIAL ONE (06:45)
[2024-04-04] MEDS ORDERED: DEXAMETHASONE SOD INJ 4 MG/ML VIAL ONE ×2 (06:45→06:48)
[2024-04-04] MEDS ORDERED: fentaNYL citrate PF 100 MCG/2 ML VIAL ONE (06:46)
[2024-04-04] MEDS ORDERED: MIDAZOLAM HCL 1 MG/ML 2ML VIAL ONE (06:46)
[2024-04-04] MEDS ORDERED: SUGAMMADEX SODIUM 200 MG/2 ML VIAL IV ONE ×2 (06:46→08:26)
[2024-04-04] MEDS ORDERED: ACETAMINOPHEN 1000 MG/100 ML IV IV ONE (06:59)
[2024-04-04] MEDS ORDERED: KETAMINE HCL 10MG/ML SYR ONE (06:59)
[2024-04-04] MEDS: LR 15ML/HR IV SCH (07:12)
[2024-04-04] MEDS ORDERED: Nursing to Pharmacy Communication SCH (07:15)
[2024-04-04] MEDS ORDERED: ePHEDrine sulfate 50 MG/ML AMP IV PRN (07:26)
[2024-04-04] MEDS ORDERED: ATROPINE SULFATE 0.1 MG/ML 10ML SYR IV PRN (07:26)
[2024-04-04] MEDS ORDERED: DROPERIDOL 5 MG/2 ML VIAL IV PRN (07:26)
--- NOTE | 2024-04-04 07:26 | Anesthesiology Consultation ---
Date of Service April 04, 2024 Assessment & Plan Chart Review Chart Review: Acceptable Risk for Surgery and Patient NOT seen in Pre Admission Testing Consults Requested none History Surgery Operation Date: 04/04/24 09:10 Proposed Procedures p C6 Anterior Cervial Corpectomy - Lucio Tena DO Height/Weight Height: 5 ft 6 in Weight: 95.5 kg Allergies Allergy/AdvReac Type Severity Reaction Status Date / Time No Known Allergies Allergy Verified 12/11/20 08:46 Medications Home Medications Medication Instructions Recorded Confirmed Last Taken aspirin 81 mg tablet,delayed 81 mg PO DAILY 04/01/24 04/01/24 Unknown release atorvastatin 40 mg tablet (Lipitor) 40 mg PO DAILY 04/01/24 04/01/24 Unknown baclofen 20 mg tablet 20 mg PO TID 04/01/24 04/01/24 Unknown betamethasone dipropionate 0.05 % 1 applic topical BID 04/01/24 04/01/24 Unknown topical cream duloxetine 60 mg capsule,delayed 60 mg PO DAILY 04/01/24 04/01/24 Unknown release furosemide 40 mg tablet (Lasix) 40 mg PO DAILY PRN swelling 04/01/24 04/01/24 Unknown gabapentin 400 mg capsule 400 mg PO TID 04/01/24 04/01/24 Unknown hydrocortisone 5 mg tablet See Rx Instructions .Route .COMPLEX 04/01/24 04/01/24 Unknown hydroxychloroquine 200 mg tablet 400 mg PO HS 04/01/24 04/01/24 Unknown hydroxyzine HCl 25 mg tablet 25 mg PO TID PRN Anxiety 04/01/24 04/01/24 Unknown midodrine 10 mg tablet 10 mg PO TID 04/01/24 04/01/24 Unknown mirtazapine 7.5 mg tablet 7.5 mg PO HS 04/01/24 04/01/24 Unknown pantoprazole 40 mg tablet,delayed 40 mg PO BID 04/01/24 04/01/24 Unknown release plecanatide 3 mg tablet (Trulance) 3 mg PO DAILY 04/01/24 04/01/24 Unknown potassium chloride 10 mEq 10 meq PO BID 04/01/24 04/01/24 Unknown capsule,extended release ropinirole 2 mg tablet 2 mg PO HS 04/01/24 04/01/24 Unknown semaglutide (weight loss) 0.25 0.5 mg subcut WK 04/01/24 04/01/24 Unknown mg/0.5 mL subcutaneous pen injector (Yassine) trazodone 100 mg tablet 100 mg PO HS 04/01/24 04/01/24 Unknown Active Medications Generic Name Dose Route Start Last Admin Trade Name Freq PRN Reason Stop Dose Admin Atorvastatin Calcium 40 mg 04/02/24 09:00 04/03/24 07:59 Atorvastatin 40 Mg Tab PO 05/02/24 08:59 40 mg DAILY KAREEN Administration Baclofen 10 mg 04/01/24 20:46 04/04/24 03:02 Baclofen 10 Mg Tab PO 05/01/24 20:45 10 mg TID PRN Administration spasm Duloxetine HCl 60 mg 04/02/24 09:00 04/03/24 07:58 Duloxetine Hcl 60 Mg Cap PO 05/02/24 08:59 Not Given DAILY KAREEN Gabapentin 400 mg 04/01/24 21:00 04/03/24 20:57 Gabapentin 400 Mg Cap PO 05/01/24 20:59 400 mg TID KAREEN Administration Heparin Sodium (Porcine) 5,000 units 04/01/24 22:00 04/03/24 06:15 Heparin Sod 5,000 Unit/0.5 Ml Vial SQ 05/01/24 21:59 5,000 units Q8 KAREEN Administration Hydrocortisone 5 mg 04/02/24 14:00 04/03/24 12:33 Hydrocortisone 10 Mg Tab PO 05/02/24 13:59 5 mg DAILY@1400 KAREEN Administration Hydroxychloroquine Sulfate 400 mg 04/01/24 21:00 04/03/24 20:56 Hydroxychloroquine Sulfate 200 Mg Tab PO 05/01/24 20:59 400 mg HS KAREEN Administration Hydroxyzine HCl 25 mg 04/01/24 20:46 04/04/24 03:47 Hydroxyzine Hcl 25 Mg Tab PO 05/01/24 20:45 25 mg TID PRN Administration Anxiety Lactated Ringer's 1,000 mls @ 15 mls/hr 04/04/24 06:00 04/04/24 07:12 Lr IV 04/05/24 05:59 15 mls/hr .Q24H KAREEN Administration Midodrine 10 mg 04/02/24 07:00 04/03/24 14:55 Midodrine Hcl 10 Mg Tab PO 05/02/24 06:59 10 mg 0700,1200,1500 KAREEN Administration Mirtazapine 7.5 mg 04/01/24 21:00 04/03/24 20:57 Mirtazapine Tab 15 Mg Tab PO 05/01/24 20:59 7.5 mg HS KAREEN Administration Miscellaneous 1 each 04/02/24 00:00 04/04/24 07:02 Order Awaiting Action N/A 05/02/24 00:00 Not Given QS KAREEN Oxycodone HCl 5 mg 04/01/24 21:35 04/04/24 03:02 Oxycodone Hcl Ir 5 Mg Tab (Immediate Release) PO 04/15/24 21:34 5 mg Q6H PRN Administration Mod-Sev Pain (Scale 4-10) Pantoprazole Sodium 40 mg 04/01/24 21:00 04/03/24 20:56 Pantoprazole 40 Mg Tab PO 05/01/24 20:59 40 mg BID KAREEN Administration Potassium Chloride 10 meq 04/01/24 21:00 04/03/24 21:00 Potassium Chloride 10 Meq Tabcr PO 05/01/24 20:59 10 meq BID KAREEN Administration Ropinirole HCl 2 mg 04/01/24 21:00 04/03/24 20:55 Ropinirole Hcl 2 Mg Tablet PO 05/01/24 20:59 2 mg HS KAREEN Administration Triamcinolone Acetonide 1 appln 04/01/24 21:00 04/03/24 20:59 Triamcinolone Acet 0.5% Cr 15 Gm Tube TOP 05/01/24 20:59 1 appln BID KAREEN Administration NPO Date Last Intake of Fluids: 04/03/24 Time Last Intake of Fluids: 23:00 Date Last Intake of Solids: 04/03/24 Time Last Intake of Solids: 23:00 Past Medical History Medical History (Updated 04/03/24 @ 11:18 by Lucio Tena DO) Poor historian Necrotizing fasciitis Rectal bleeding complaints after lap babita (11/2019) > [place] CTS with evidence of right buttocks necrotizing fasciitis > life flighted to [facility], debridement/colostomy, I&D > subsequent colostomy reversal, no recent issues Rheumatoid arthritis Osteoarthritis Chronic back pain Cervical/lumbar region Carver disease Monitored by PCP (per 05/2020 note, "stable. Continue midodrine for hypotension. Not currently on steroids.") Chronic headaches Follows with Dr. Orellana Reflex sympathetic dystrophy Hx (reason for LLE ana cristina) Depression Anxiety Orthostatic hypotension Past Family History Family History Father Arthritis Cardiac disorder Hypertension Thyroid disease Cancer Mother Thyroid disease Hypertension Kidney disease Cancer Past Surgical History Surgical History History of appendectomy Per [facility] records History of colon surgery Takedown loop sigmoid colostomy, sigmoid colectomy with colocolonic anastomosis per [facility] records History of laparotomy History of cholecystectomy Lap cholecystectomy (10/24/19): Grade view 1, [place]#2, ETT 7.0 at [facility] History of colonoscopy History of knee surgery x4 (including LLE ana cristina) History of hysterectomy + USO H/O section x3 Social History Smoking Status: Current every day smoker Smoking cigarettes per day: 1 pack/day Do You Dip or Chew Tobacco: No Hx Alcohol Use: No Alcohol type: hard liquor alcohol intake frequency: holidays/special occasions only (once/six months) Hx Substance Use: No substance use type: does not use Physical Exam Vital Signs Last Vital Signs Temp 37.1 C 04/04/24 06:54 Pulse 67 04/04/24 07:13 Resp 20 04/04/24 06:54 BP 113/80 04/04/24 06:54 Pulse Ox 94 04/04/24 06:54 O2 Del Method Room Air 04/04/24 06:54 Testing Laboratory Results 04/04/24 05:39 04/04/24 05:39 PT 10.9 Seconds (9.0-12.0) 04/01/24 13:00 INR 1.0 (0.9-1.1) 04/01/24 13:00 APTT 28 Seconds (21-31) 04/01/24 13:00 Urine Color Yellow 04/01/24 12:45 Urine Appearance Clear (Clear) 04/01/24 12:45 Urine pH 6.5 (4.5-7.5) 04/01/24 12:45 Ur Specific [place] 1.008 (1.000-1.030) 04/01/24 12:45 Urine Protein Negative (Negative) 04/01/24 12:45 Urine Glucose (UA) Negative (Negative) 04/01/24 12:45 Urine Ketones Trace (Negative) H 04/01/24 12:45 Urine Nitrite Negative (Negative) 04/01/24 12:45 Ur Leukocyte Esterase Negative (Negative) 04/01/24 12:45
--- NOTE | 2024-04-04 07:47 | History & Physical Bridge Note ---
Date of Service April 04, 2024 History & Physical Bridge Note I have examined the patient, reviewed the History & Physical and in the interval since the performance of the History & Physical I have noted the following changes of clinical significance: no changes noted C6 corpectomy
[2024-04-04] MEDS ORDERED: ceFAZolin 330 MG/ML 1 GM VIAL ONE (08:11)
[2024-04-04] MEDS: ceFAZolin 2000MG 2,000 MG/15 ML SYR IV ONE (08:11)
[2024-04-04] MEDS ORDERED: HYDROCORTISONE SOD SUCCINATE 100 MG/2 ML VIAL ONE (08:16)
[2024-04-04] MEDS ORDERED: PHENYLEPHRINE HCL 10 MG/ML VIAL ONE (08:39)
[2024-04-04] MEDS: ceFAZolin 330 MG/ML 1 GM VIAL ONE (09:05)
[2024-04-04] MEDS: FLOSEAL HEMOSTATIC MATRIX 10ML TOP ONE (09:05)
--- NOTE | 2024-04-04 09:13 | Operative Report ---
Post Operative Report Pre & Post Diagnosis Operation Date: 04/04/24 09:10 Pre-Op Diagnosis: Myelopathy concurrent with and due to spinal stenosis of cervical region Post-Op Diagnosis: Myelopathy concurrent with and due to spinal stenosis of cervical region I identified the patient and participated in the time-out.: Yes Procedure Operation Date: 04/04/24 09:10 Actual Procedures #1 anterior cervical corpectomy with bilateral foraminotomies C6. #2 anterior cervical arthrodesis C5-C7. #3 placement of Spira 23 mm cage filled with os designed and locally harvested morselized autograft C5-C7. #4 application of K2 M plate and screws from C5-C7. Surgeon Lucio Tena, Photo Tube Assembler Keily Mccoy Estimated Blood Loss 20 Findings Consistent with Post-Op Diagnosis Specimens None Indications This is a 50-year-old female who presents the hospital with marked decline in neurologic status. Imaging demonstrates evidence of severe spinal stenosis in the cervical spine with myelomalacia. Subsequent she is here for urgent decompression fusion. Description of Procedure Patient was met with identified informed consent obtained. Patient was then taken to the operative suite underwent intubation placed in a supine position the Anderson table with head Stevenson head concierge. All bony prominences well- padded eyes inspected to ensure no external precipice upon them. This point the anterior cervical spine was prepped and draped in normal sterile fashion. The assistance of fluoroscopy identified the C6 vertebral body and a transverse incision was placed along the right anterior aspect of the cervical spine overlying this region. Blunt dissection with the assistance of bipolar e lectrocautery is from down to and exposing the anterior cervical spine from C5- C7. A self-retaining retractor was placed. Then formed a complete discectomy C5-C6 out to the uncle for 2 joints bilaterally followed by C6-C7. Jackson distraction pins were used to distract across the C6 vertebral body. Then performed a complete corpectomy of C6 including removal of all posterior annular fibers longitudinal ligament bilateral foraminotomies performed for complete decompression. The endplates were then burred to subcortical bleeding bone and a 23 mm spiral cage filled with os design bone graft and locally harvested morselized autograft tapped in position. K2 and plate and screws were then applied with the assistance of fluoroscopy. The incision was then copiously irrigated explored to ensure no damage to surrounding structures remaining bleeding. 10 round GIL drain inserted. The incision was then closed with 2 Vicryl in the fascia and 4 Monocryl for final skin closure. Steri-Strips s terile dressing placed. Patient waken taken to PACU in stable condition. Please note spinal cord monitoring was utilized at the procedure no changes noted. Keily Mccoy was present at the entire surgery and while the patient positioning complex portion of the surgery and final skin closure. I attest to the content of the Intraoperative Record and any orders documented therein. Any exceptions are noted below.
[2024-04-04] MEDS: fentaNYL citrate PF 100 MCG/2 ML VIAL IV PRN (09:34)
--- NOTE | 2024-04-04 09:37 | Hospitalist Progress Note ---
Date of Service April 04, 2024 Assessment & Plan (1) Decreased sensation: Plan Past medical history of Columbia's disease, hyperlipidemia, orthostatic hypotension, GERD, irritable bowel syndrome, CKD, lumbar degenerative disease, osteoarthritis, lupus, generalized anxiety disorder presented to the hospital for evaluation of decreased sensation gradually progressing from her feet up to mid abdomen since the morning of arrival 04/01. She is being managed for the following: C5-C6 compressive myelopathy s/p #1 anterior cervical corpectomy with bilateral foraminotomies C6. #2 anterior cervical arthrodesis C5-C7. #3 placement of Spira 23 mm cage filled with os designed and locally harvested morselized autograft C5-C7. #4 application of K2 M plate and screws from C5-C7 On April 04, 2024 Patient presents with pins and needlelike sensation extending from feet up to subxiphoid area gradually over few hours on 04/01 AM. No motor weakness (left leg weakness at baseline). No history of trauma/fall recently. No incontinence s/s. No back /spine pain on exam, no fever. Electrolytes within normal limits. B12 and TSH wnl. CK within normal limits CTA aorta with runoffno acute finding MR L spine and T spine - age related finding as well as evidence of previous fusion of L4-S1. MR C spine w/ c5-6 compressive myelopathy and Multilevel disc bulges with spinal canal and neural foraminal stenosis. Patient underwent surgery in April for compression myelopathy. 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 It may contain grammatical, syntax or spelling errors. Any formal questions or concerns about the content, text or information contained within the body of this dictation should be directly addressed to the provider for clarification Admission and Anticipated Discharge Date Admission Date: April 01, 2024 Subjective Patient seen and examined at bedside. Patient underwent surgery by Dr. Tena today She is comfortable; not in distress Vital signs are stable Review of Systems Review of Systems: All systems reviewed & are unremarkable except as noted in Subjective Physical Exam Physical Exam: Constitutional: Alert oriented x 3; not in distress. Respiratory: Bilateral vesicular breath sound. Cardiovascular: RRR, no murmur, no edema Vessels: no JVD or carotid bruit Chest: normal inspection of chest Abdomen: normal bowel sounds, soft, nontender, no hepatosplenomegaly Musculoskeletal: no cyanosis or clubbing, extremities motor strength 5/5 Skin: no rashes, warm and dry normal turgor Neurologic: PERRL, EOMI, accommodation nl, no face palsy, no dysarthria Motor strength 5 x 5 in all extremities except left lower extremity. Reports that her left leg is weak at baseline due to fusion Decree sensation to light touch after subxiphoid area. She withdraws to painful stimuli at some areas. Results & Data Results & Data Vital Signs (Past 12 Hours) Vital Signs Temp Pulse Pulse Pulse Resp BP Pulse Ox 04/04/24 07:49 19 04/04/24 07:13 67 04/04/24 06:54 37.1 C 72 20 113/80 94 04/04/24 03:32 36.6 C 72 19 120/74 04/04/24 00:00 65 04/03/24 23:00 36.5 C 66 16 120/78 94 O2 Del Method 04/04/24 07:49 04/04/24 07:13 04/04/24 06:54 Room Air 04/04/24 03:32 Room Air 04/04/24 00:00 04/03/24 23:00 Room Air
--- NOTE | 2024-04-04 10:27 | Anesthesiology Progress Note ---
Date of Service April 04, 2024 Anesthesia Post Procedure Vital Signs Vital Signs: Temp Pulse Pulse Pulse Pulse Resp BP 04/04/24 10:15 71 13 147/98 H 04/04/24 10:05 71 14 151/88 H 04/04/24 10:00 68 13 138/99 04/04/24 09:55 74 17 164/105 H 04/04/24 09:45 71 15 159/87 H 04/04/24 09:35 71 21 166/102 H 04/04/24 09:25 77 13 154/113 H 04/04/24 09:19 36.1 C L 83 19 161/100 H 04/04/24 07:49 19 04/04/24 07:13 67 04/04/24 06:54 37.1 C 72 20 113/80 04/04/24 03:32 36.6 C 72 19 120/74 04/04/24 00:00 65 04/03/24 23:00 36.5 C 66 16 120/78 04/03/24 20:26 36.5 C 74 16 123/76 04/03/24 15:32 36.6 C 66 19 137/79 04/03/24 14:26 79 04/03/24 11:16 36.6 C 66 20 131/85 Pulse Ox O2 Del Method O2 Flow Rate 04/04/24 10:15 95 Nasal Cannula 2 04/04/24 10:05 95 Nasal Cannula 2 04/04/24 10:00 95 Oxymask 4 04/04/24 09:55 98 Oxymask 10 04/04/24 09:45 98 Oxymask 10 04/04/24 09:35 98 Oxymask 10 04/04/24 09:25 97 Oxymask 10 04/04/24 09:19 94 Oxymask 10 04/04/24 07:49 04/04/24 07:13 04/04/24 06:54 94 Room Air 04/04/24 03:32 Room Air 04/04/24 00:00 04/03/24 23:00 94 Room Air 04/03/24 20:26 95 Room Air 04/03/24 15:32 95 Room Air 04/03/24 14:26 04/03/24 11:16 95 Room Air Pain Intensity Medial Back: Pain Intensity: 7 Neck: Pain Intensity: 7 Transfer of Care Handoff Completed per policy Notes Mental Status: alert / awake / arousable Patient Amnestic to Procedure: Yes Nausea / Vomiting: adequately controlled Pain: adequately controlled Airway Patency, RR, SpO2: stable & adequate BP & HR: stable & adequate Hydration State: stable & adequate Anesthetic Complications: no major complications apparent and Pt Satisfied with anesthetic care
[2024-04-04] MEDS: HYDROCORTISONE SOD 50 MG in SYRINGE 0 ML IV SCH (11:11)
[2024-04-04] MEDS ORDERED: DO NOT ADMINISTER FLU VACCINE PRN (11:27)
[2024-04-04] MEDS ORDERED: ONDANSETRON INJ 2 MG/ML 2 ML VIAL IV PRN (11:27)
[2024-04-04] MEDS ORDERED: METOCLOPRAMIDE HCL INJ 5 MG/ML 2 ML VIAL IV PRN (11:27)
[2024-04-04] MEDS ORDERED: NALOXONE HCL 0.4 MG/1 ML VIAL/CARP IV PRN (11:27)
[2024-04-04] MEDS ORDERED: LORazepam 0.5 MG TAB PO PRN (11:27)
[2024-04-04] MEDS ORDERED: SOD PHOSPHATE/SOD BIPHOSPHATE ENEMA 132 ML BTL PR PRN (11:27)
[2024-04-04] MEDS ORDERED: DO NOT ADMINISTER PNEUMOCOCCAL VACCINE PRN (11:27)
[2024-04-04] MEDS ORDERED: ACETAMINOPHEN 1,000 MG/100 ML VIAL IV PRN (11:27)
[2024-04-04] MEDS ORDERED: PROMETHAZINE 12.5 MG/50.5 ML BAG IV PRN (11:27)
[2024-04-04] MEDS ORDERED: HYDROmorphone INJ 0.5 MG/0.5 ML SYR IV PRN (11:27)
[2024-04-04] MEDS ORDERED: RACEPINEPHRINE 2.25% NEBU SOLN 0.5 ML VIAL INH PRN (11:27)
[2024-04-04] MEDS ORDERED: diphenhydrAMINE Capsule 25 MG CAP PO PRN (11:27)
[2024-04-04] MEDS ORDERED: bisacodyL 10 MG SUPP PR PRN (11:27)
[2024-04-04] MEDS ORDERED: ACETAMINOPHEN 500 MG TAB PO PRN (11:27)
[2024-04-04] MEDS ORDERED: FAMOTIDINE 20 MG TAB PO PRN (11:27)
[2024-04-04] MEDS ORDERED: traMADol HCL 50 MG TABLET PO PRN (11:27)
[2024-04-04] MEDS ORDERED: ONDANSETRON 4 MG OD TAB PO PRN (11:27)
--- NOTE | 2024-04-04 11:29 | Fluoroscopy Report ---
FL cervical 2-3V CLINICAL HISTORY: C6 CORPECTOMY COMPARISON STUDY: Cervical spine MRI April 02, 2024. FLUOROSCOPY TIME: 8 seconds. Ka,r: 0.71 mGy FLUOROSCOPIC IMAGES: 2 FINDINGS: Fluoroscopy was provided during C6 corpectomy and C5-C7 anterior discectomy and fusion. Song gical drain is in place. Linear radiodensity within the operative bed on the initial image is not pre sent on the subsequent image. Endotracheal tube is partially imaged. IMPRESSION: Fluoroscopy provided for C6 corpectomy and C5-C7 anterior discectomy and fusion. ACT 112: Negative or not required by law. Electronically signed by: Bridger Lazo M.D. 04/04/2024 11:28 AM
[2024-04-04] MEDS ORDERED: dexAMETHasone 8 MG in SYRINGE 0 ML IV PRN (12:00)
[2024-04-04] MEDS: HYDROmorphone INJ 1 MG/ML SYRINGE IV PRN (12:00)
[2024-04-04] MEDS: dexAMETHasone 8 MG in SYRINGE 0 ML IV SCH (13:22)
[2024-04-04] MEDS: MAGNESIUM HYDROXIDE SUSP 30 ML UDC PO PRN (15:09)
[2024-04-04] MEDS: ceFAZolin 2000MG 2,000 MG/15 ML SYR IV SCH (15:25)
[2024-04-04] MEDS: DOCUSATE SODIUM/SENNA 50/8.6MG TAB PO SCH (20:27)
[2024-04-04] MEDS: oxyCODONE HCL IR 5 MG TAB (IMMEDIATE RELEASE) PO PRN (20:27)
[2024-04-04] MEDS: BACLOFEN 10 MG TAB PO PRN (23:13)
[2024-04-04] MEDS: traZODone HCL 100 MG TAB PO SCH (23:46)
[2024-04-05] MEDS: POLYETHYLENE (MIRALAX) 17 GM PACK PO SCH (05:15)
[2024-04-05 07:02] LABS: Basophils # (auto) 0.01 K/uL (0.00-0.20); Basophils % (auto) 0.1 %; Hematocrit (blood only) 47.4 % (37.0-47.0); Hemoglobin 15.8 g/dl (12.0-16.0); Immature Granulocytes # (auto) 0.06 K/uL (0.01-0.20); Immature Granulocytes % (auto) 0.5 %; Lymphocytes # (auto) 1.08 K/uL (1.20-3.40); Lymphocytes % (auto) 8.2 %; Mean Corpuscular Hemoglobin 28.2 pg (25.0-34.0); Mean Corpuscular Hgb Conc 33.3 g/dL (32.0-36.0); Mean Corpuscular Volume 84.6 fL (80.0-100.0); Mean Platelet Volume 10.3 fL (9.4-12.4); Monocytes # (auto) 0.28 K/uL (0.11-0.59); Monocytes % (auto) 2.1 %; Neutrophils # (auto) 11.75 K/uL (1.40-6.50); Neutrophils % (auto) 89.1 %; Platelet Count 263 K/uL (130-400); RDW Coefficient of Variation 14.3 % (11.5-14.5); RDW Standard Deviation 43.8 fL (36.4-46.3); White Blood Count 13.18 K/ul (4.8-10.8)
[2024-04-05 07:23] LABS: Calcium 10.5 mg/dl (8.6-10.3); Potassium 4.3 mmol/L (3.5-5.1)
[2024-04-05 07:29] LABS: BUN Creatinine Ratio 15.7 (10-20); Creatinine Clr Calc Pharmacy 80.3 ml/min
--- NOTE | 2024-04-05 10:16 | Orthopedic Progress Note ---
Date of Service April 05, 2024 Assessment & Plan (1) Myelopathy concurrent with and due to spinal stenosis of cervical region: Plan: At this time we will continue physical therapy monitor her GIL output. Will assess her progress at the next several days she may be a candidate for rehab. Admission and Anticipated Discharge Date Admission Date: April 01, 2024 Subjective Neck pain controlled. Swallowing well. No hoarseness. Patient feels that she is retaining regaining some sensation along the right lower extremity. Physical Exam Physical Exam: On exam drain is functioning. She is good strength testing upper extremities. Strength right lower extremities intact. Sensory has somewhat improved. Left lower extremity is unchanged. Results & Data Vital Signs (Past 12 Hours) Vital Signs Temp Pulse Resp BP Pulse Ox O2 Del Method O2 Flow Rate 04/05/24 09:15 36.9 C 103 H 20 137/87 93 Nasal Cannula 3 04/05/24 07:44 85 16 94 Nasal Cannula 4 04/05/24 07:38 36.3 C L 86 16 144/88 H 94 Nasal Cannula 04/05/24 07:15 Nasal Cannula 04/05/24 05:04 36.3 C L 82 16 139/91 Nasal Cannula 4 04/05/24 03:40 36.4 C L 79 17 128/84 94 Nasal Cannula 04/05/24 02:49 85 18 93 Nasal Cannula 04/05/24 01:33 36.3 C L 80 16 136/88 94 Nasal Cannula 04/04/24 23:14 36.4 C L 81 16 148/90 H 95 Nasal Cannula 04/04/24 23:00 76 17 95 Room Air
--- NOTE | 2024-04-05 14:52 | Hospitalist Progress Note ---
Date of Service April 05, 2024 Assessment & Plan (1) Decreased sensation: Plan Past medical history of Rowan's disease, hyperlipidemia, orthostatic hypotension, GERD, irritable bowel syndrome, CKD, lumbar degenerative disease, osteoarthritis, lupus, generalized anxiety disorder presented to the hospital for evaluation of decreased sensation gradually progressing from her feet up to mid abdomen since the morning of arrival 04/01. She is being managed for the following: C5-C6 compressive myelopathy s/p #1 anterior cervical corpectomy with bilateral foraminotomies C6. #2 anterior cervical arthrodesis C5-C7. #3 placement of Spira 23 mm cage filled with os designed and locally harvested morselized autograft C5-C7. #4 application of K2 M plate and screws from C5-C7 On April 04, 2024 Patient presents with pins and needlelike sensation extending from feet up to subxiphoid area gradually over few hours on 04/01 AM. No motor weakness (left leg weakness at baseline). No history of trauma/fall recently. No incontinence s/s. No back /spine pain on exam, no fever. Electrolytes within normal limits. B12 and TSH wnl. CK within normal limits CTA aorta with runoffno acute finding MR L spine and T spine - age related finding as well as evidence of previous fusion of L4-S1. MR C spine w/ c5-6 compressive myelopathy and Multilevel disc bulges with spinal canal and neural foraminal stenosis. Patient underwent surgery in April for compression myelopathy. Continue PT OT Pain control Continue on regular steroid dose from tomorrow a.m. 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 It may contain grammatical, syntax or spelling errors. Any formal questions or concerns about the content, text or information contained within the body of this dictation should be directly addressed to the provider for clarification Admission and Anticipated Discharge Date Admission Date: April 01, 2024 Subjective Patient seen and examined at bedside She is comfortable; not in distress. She reports that sensation is slightly better compared to prior to surgery Vital signs are stable Review of Systems Review of Systems: All systems reviewed & are unremarkable except as noted in Subjective Physical Exam Physical Exam: Constitutional: Alert oriented x 3; not in distress. Respiratory: Bilateral vesicular breath sound. Cardiovascular: RRR, no murmur, no edema Vessels: no JVD or carotid bruit Chest: normal inspection of chest Abdomen: normal bowel sounds, soft, nontender, no hepatosplenomegaly Musculoskeletal: no cyanosis or clubbing, extremities motor strength 5/5 Skin: no rashes, warm and dry normal turgor Neurologic: PERRL, EOMI, accommodation nl, no face palsy, no dysarthria Motor strength 5 x 5 in all extremities except left lower extremity. Reports that her left leg is weak at baseline due to fusion slightly improved sensation to light touch compared to previous day Results & Data Results & Data Vital Signs (Past 12 Hours) Vital Signs Temp Pulse Resp BP Pulse Ox Pulse Ox O2 Del Method 04/05/24 14:22 83 16 91 Room Air 04/05/24 11:39 96 04/05/24 11:32 36.9 C 82 18 132/84 96 Room Air 04/05/24 10:37 84 16 93 Room Air 04/05/24 09:15 36.9 C 103 H 20 137/87 93 Nasal Cannula 04/05/24 07:44 85 16 94 Nasal Cannula 04/05/24 07:38 36.3 C L 86 16 144/88 H 94 Nasal Cannula 04/05/24 07:15 Nasal Cannula 04/05/24 05:04 36.3 C L 82 16 139/91 Nasal Cannula 04/05/24 03:40 36.4 C L 79 17 128/84 94 Nasal Cannula O2 Flow Rate O2 Flow Rate 04/05/24 14:22 04/05/24 11:39 0 04/05/24 11:32 04/05/24 10:37 04/05/24 09:15 3 04/05/24 07:44 4 04/05/24 07:38 4 04/05/24 07:15 3 04/05/24 05:04 4 04/05/24 03:40 4
[2024-04-06 07:35] LABS: Hematocrit (blood only) 45.6 % (37.0-47.0); Hemoglobin 15.2 g/dl (12.0-16.0); Mean Corpuscular Hemoglobin 28.2 pg (25.0-34.0); Mean Corpuscular Hgb Conc 33.3 g/dL (32.0-36.0); Mean Corpuscular Volume 84.6 fL (80.0-100.0); Mean Platelet Volume 10.7 fL (9.4-12.4); Platelet Count 296 K/uL (130-400); RDW Coefficient of Variation 14.6 % (11.5-14.5); RDW Standard Deviation 44.1 fL (36.4-46.3); Red Blood Count 5.39 M/uL (4.20-5.40); White Blood Count 18.88 K/ul (4.8-10.8)
[2024-04-06 07:51] LABS: Calcium 10.3 mg/dl (8.6-10.3); Creatinine Clr Calc Pharmacy 88.2 ml/min; Potassium 4.3 mmol/L (3.5-5.1)
[2024-04-06 07:54] LABS: Basophils # (auto) 0.02 K/uL (0.00-0.20); Basophils % (auto) 0.1 %; Immature Granulocytes # (auto) 0.14 K/uL (0.01-0.20); Immature Granulocytes % (auto) 0.7 %; Lymphocytes # (auto) 0.89 K/uL (1.20-3.40); Lymphocytes % (auto) 4.7 %; Monocytes # (auto) 0.64 K/uL (0.11-0.59); Monocytes % (auto) 3.4 %; Neutrophils # (auto) 17.19 K/uL (1.40-6.50); Neutrophils % (auto) 91.1 %
[2024-04-06] MEDS: HYDROCORTISONE 10 MG TAB PO SCH ×2 (08:44→15:18)
--- NOTE | 2024-04-06 10:12 | XRay Report ---
XR chest 1V portable CLINICAL HISTORY: Hypoxia COMPARISON STUDY: 11/30/2020 FINDINGS: Heart size and pulmonary vasculature are normal. There is interval mild stranding opacity i n the lung bases. No other consolidation or pleural effusion. No pneumothorax. IMPRESSION: Atelectasis versus early pneumonia in the lung bases. ACT 112: Negative or not required by law. Electronically signed by: Earl Alfonso M.D. 04/06/2024 10:10 AM
--- NOTE | 2024-04-06 12:14 | Orthopedic Progress Note ---
Date of Service April 06, 2024 Assessment & Plan (1) Myelopathy concurrent with and due to spinal stenosis of cervical region: Plan: Assessment status post cervical decompression fusion. Plan at this time I again discussed with the patient that her issues could be multifactorial nature. While I have addressed the cervical spinal stenosis there could be other factors contributing to her clinical presentation. I would like to obtain a second MRI of the thoracic spine to rule out developing of any cord changes such as transverse myelitis. Will also consult neurology for their input. Will have her dressing and drain changed today. Admission and Anticipated Discharge Date Admission Date: April 01, 2024 Subjective Patient is swallowing well. Denies any upper extremity symptoms. She is disappointed that her numbness and weakness has not changed since surgery. She is working with physical therapy. She is not interested in rehab. Physical Exam Physical Exam: On exam upper extremity strength and sensory is intact. The drain is functional in place. Lower extremity exam is unchanged. She continues to demonstrate numbness from roughly the xiphoid distally. Results & Data Vital Signs (Past 12 Hours) Vital Signs Temp Pulse Resp BP Pulse Ox O2 Del Method O2 Flow Rate 04/06/24 10:54 70 16 93 Nasal Cannula 4 04/06/24 08:00 Nasal Cannula 04/06/24 08:00 68 20 95 Nasal Cannula 4 04/06/24 07:27 36.4 C L 69 16 135/83 91 Nasal Cannula 4 04/06/24 04:19 84 16 90 Nasal Cannula 2
[2024-04-06] MEDS: ALUMINUM/MAGNESIUM SUSP 30 ML UDC PO PRN (12:43)
[2024-04-06] MEDS: FAMOTIDINE 20 MG TAB PO SCH (12:56)
--- NOTE | 2024-04-06 14:53 | Neurology Consultation ---
Date of Consultation April 06, 2024 Assessment & Plan (1) Myelopathy concurrent with and due to spinal stenosis of cervical region: Patient is status post orthopedic cervical spine surgery/decompression POD#2 Recommend repeat MRI cervical thoracic and lumbar spine- with and without contrast Recommend MRI brain with and without contrast Recommend discontinue gabapentin Recommend pregabalin BID Continue to monitor/control pain Continue frequent neurological assessments Obtain stat CT brain without contrast for any acute neurological decline Continue to monitor/control blood pressure & blood glucose Continue to monitor orthostatic vitals as tolerated Will benefit from continued aggressive rehab/therapy Ok from neurology perspective for VTE prophylaxis Recommend EMG/NCS testing outpatient Plan for continued follow up with adult neurology Telehealth Consultation Telehealth Information Telehealth Information: I performed this visit using a real-time telehealth connection between my location and the patients location ([facility]). After connecting through interactive tele-video, patient was identified by name and date of and/or wristband check.Patient (or authorized healthcare mill representative) was informed that this was a telemedicine visit and it was being conducted confidentially over secure lines. My office door was closed and no one else was present in the room with me.Patient (or authorized healthcare mill representative) provided consent to proceed with the visit, expressed an understanding of privacy and security of the telemedicine visit, and gave permission to have a hospital mill representative in the room in order to assist with the visit and to conduct portions of the visit, as needed. I informed the patient (or authorized healthcare mill representative) that I reviewed their record and presented the opportunity for them to ask any questions regarding the visit today. The patient agreed to participate. History of Present Illness Reason for Consultation: Continued LLE weakness and paresthesia Requesting Physician: Dr. Leger Attending Physician: Jose De Jesus Leger MD History of Present Illness 58yo female with significant past medical history of Maxx's disease, hyperlipidemia reports lengthy history of cervical radiculopathy. States she was told 1-2 years ago that she would need spine surgery. She reports awakening daily with LLE numbness which she reports typically lasts about an hour. She reports having multiple knee surgeries and implanted titanium ana cristina in her LLE so daily numbness is not new for her. She reports last Thursday awakening with normal LLE symptoms but then the symptoms began in her RLE and felt paresthesia all the way up to her chest. She reports LLE weakness that did not improve. She underwen t imaging revealing evidence of cervical myopathy and underwent orthopedic spine surgery for decompression. Unfortunately she reports no improvement in sensory symptoms or motor strength of LLE. Neurology was asked to reevaluate her based on no improvement of symptoms following surgery. I have performed televideo consultation. She is alert & oriented; able to answer all questions appropriately, repeat phrases and perform complex/embedded commands without deficit. Neurological exam reveals LLE monoplegia Allergies Allergy/AdvReac Type Severity Reaction Status Date / Time No Known Allergies Allergy Verified 12/11/20 08:46 Home Medications Medication Instructions Recorded Confirmed Type aspirin 81 mg tablet,delayed 81 mg PO DAILY 04/01/24 04/01/24 History release atorvastatin 40 mg tablet (Lipitor) 40 mg PO DAILY 04/01/24 04/01/24 History baclofen 20 mg tablet 20 mg PO TID 04/01/24 04/01/24 History betamethasone dipropionate 0.05 % 1 applic topical BID 04/01/24 04/01/24 History topical cream duloxetine 60 mg capsule,delayed 60 mg PO DAILY 04/01/24 04/01/24 History release furosemide 40 mg tablet (Lasix) 40 mg PO DAILY PRN swelling 04/01/24 04/01/24 History gabapentin 400 mg capsule 400 mg PO TID 04/01/24 04/01/24 History hydrocortisone 5 mg tablet See Rx Instructions .Route .COMPLEX 04/01/24 04/01/24 History hydroxychloroquine 200 mg tablet 400 mg PO HS 04/01/24 04/01/24 History hydroxyzine HCl 25 mg tablet 25 mg PO TID PRN Anxiety 04/01/24 04/01/24 History midodrine 10 mg tablet 10 mg PO TID 04/01/24 04/01/24 History mirtazapine 7.5 mg tablet 7.5 mg PO HS 04/01/24 04/01/24 History pantoprazole 40 mg tablet,delayed 40 mg PO BID 04/01/24 04/01/24 History release plecanatide 3 mg tablet (Trulance) 3 mg PO DAILY 04/01/24 04/01/24 History potassium chloride 10 mEq 10 meq PO BID 04/01/24 04/01/24 History capsule,extended release ropinirole 2 mg tablet 2 mg PO HS 04/01/24 04/01/24 History semaglutide (weight loss) 0.25 0.5 mg subcut WK 04/01/24 04/01/24 History mg/0.5 mL subcutaneous pen injector (Wegovy) trazodone 100 mg tablet 100 mg PO HS 04/01/24 04/01/24 History Patient History Medical History (Updated 04/03/24 @ 11:18 by Lucio Tena DO) Poor historian Necrotizing fasciitis Rectal bleeding complaints after lap babita (11/2019) > [place] [facility] CTS with evidence of right buttocks necrotizing fasciitis > life flighted to [facility], debridement/colostomy, I&D > subsequent colostomy reversal, no recent issues Rheumatoid arthritis Osteoarthritis Chronic back pain Cervical/lumbar region Otoe disease Monitored by PCP (per 05/2020 note, "stable. Continue midodrine for hypotension. Not currently on steroids.") Chronic headaches Follows with Dr. Orellana Reflex sympathetic dystrophy Hx (reason for LLE ana cristina) Depression Anxiety Orthostatic hypotension Surgical History History of appendectomy Per [facility] [place] records History of colon surgery Takedown loop sigmoid colostomy, sigmoid colectomy with colocolonic anastomosis per [facility] records History of laparotomy History of cholecystectomy Lap cholecystectomy (10/24/19): Grade view 1, [place]#2, ETT 7.0 at [facility] History of colonoscopy History of knee surgery x4 (including LLE ana cristina) History of hysterectomy + USO H/O section x3 Family History Father Arthritis Cardiac disorder Hypertension Thyroid disease Cancer Mother Thyroid disease Hypertension Kidney disease Cancer Social History (Updated 11/23/20 @ 16:03 by Nicki Peterson RN) Smoking Status: Current every day smoker Tobacco Type: Cigarettes Cigarettes Per Day: 1 pack/day; Second Hand Exposure: Yes (PARENTS SMOKED); Do You Dip or Chew Tobacco: No; Hx Alcohol Use: No Hx Substance Use: No Preferred Language: Macedonian Communication Ability: Effective Academic Support Center Director Required: No Beliefs That Will Affect Care: None Current Living Situation: Family Current Living Situation Comment: granddaughter lives with her current occupational status: disabled Feels Safe at Home: Yes Safety Concerns: Feels Safe At This Time Assistive Devices: Cane Physical Exam Neurological Examination: Mental Status: Awake and alert. Oriented to person, place, and time. Fluency naming repetition and comprehension appear grossly intact. Affect remains appropriate. CN testing: I: Denies changes in ability to smell II:Reports no changes in visual acuity III/IV/: No evidence of gaze preference, hippus, nystagmus or roving eye movements V: Facial sensation reportedly grossly intact to light touch bilaterally VII: Facial movements appear without evidence of asymmetry VIII: Hearing appears grossly intact to loud voice bilaterally IX/X: Palate appears to elevate symmetrically XI: Shoulder shrug appears symmetric/ grossly intact bilaterally XII: Tongue protrudes midline without evidence of biting Motor exam: Strength: LLE monoplegia Sensory: Sensation is reportedly grossly intact throughout Coordination: Finger to nose and heel to woo were intact. No apparent evidence of dysmetria or dysdiadochokinesia Reflexes: Deferred Gait: Deferred Results & Data Vital Signs (Past 12 Hours) Vital Signs Temp Pulse Resp BP Pulse Ox O2 Del Method O2 Flow Rate 04/06/24 10:54 70 16 93 Nasal Cannula 4 04/06/24 08:00 Nasal Cannula 04/06/24 08:00 68 20 95 Nasal Cannula 4 04/06/24 07:27 36.4 C L 69 16 135/83 91 Nasal Cannula 4 04/06/24 04:19 84 16 90 Nasal Cannula 2 Laboratory Results Abnormal lab results 04/06/24 Range/Units 06:51 WBC 18.88 H (4.8-10.8) K/ul RDW Coeff of Marcy 14.6 H (11.5-14.5) % Neut # (Auto) 17.19 H (1.40-6.50) K/uL Lymph # (Auto) 0.89 L (1.20-3.40) K/uL Glynn # (Auto) 0.64 H (0.11-0.59) K/uL BUN/Creatinine Ratio 21.0 H (10-20) Glucose 132 H (70-99(Fasting)) mg/dl Diagnostic Findings Chest X-Ray 04/06/24 09:17 XR chest 1V portable CLINICAL HISTORY: Hypoxia COMPARISON STUDY: 11/30/2020 FINDINGS: Heart size and pulmonary vasculature are normal. There is interval mild stranding opacity in the lung bases. No other consolidation or pleural effusion. No pneumothorax. IMPRESSION: Atelectasis versus early pneumonia in the lung bases. ACT 112: Negative or not required by law. Electronically signed by: Earl Alfonso M.D. 04/06/2024 10:10 AM Medications Administered Home Medications Medication Instructions Recorded Confirmed Last Taken aspirin 81 mg tablet,delayed 81 mg PO DAILY 04/01/24 04/01/24 Unknown release atorvastatin 40 mg tablet (Lipitor) 40 mg PO DAILY 04/01/24 04/01/24 Unknown baclofen 20 mg tablet 20 mg PO TID 04/01/24 04/01/24 Unknown betamethasone dipropionate 0.05 % 1 applic topical BID 04/01/24 04/01/24 Unknown topical cream duloxetine 60 mg capsule,delayed 60 mg PO DAILY 04/01/24 04/01/24 Unknown release furosemide 40 mg tablet (Lasix) 40 mg PO DAILY PRN swelling 04/01/24 04/01/24 Unknown gabapentin 400 mg capsule 400 mg PO TID 04/01/24 04/01/24 Unknown hydrocortisone 5 mg tablet See Rx Instructions .Route .COMPLEX 04/01/24 04/01/24 Unknown hydroxychloroquine 200 mg tablet 400 mg PO HS 04/01/24 04/01/24 Unknown hydroxyzine HCl 25 mg tablet 25 mg PO TID PRN Anxiety 04/01/24 04/01/24 Unknown midodrine 10 mg tablet 10 mg PO TID 04/01/24 04/01/24 Unknown mirtazapine 7.5 mg tablet 7.5 mg PO HS 04/01/24 04/01/24 Unknown pantoprazole 40 mg tablet,delayed 40 mg PO BID 04/01/24 04/01/24 Unknown release plecanatide 3 mg tablet (Trulance) 3 mg PO DAILY 04/01/24 04/01/24 Unknown potassium chloride 10 mEq 10 meq PO BID 04/01/24 04/01/24 Unknown capsule,extended release ropinirole 2 mg tablet 2 mg PO HS 04/01/24 04/01/24 Unknown semaglutide (weight loss) 0.25 0.5 mg subcut WK 04/01/24 04/01/24 Unknown mg/0.5 mL subcutaneous pen injector (Weangelita) trazodone 100 mg tablet 100 mg PO HS 04/01/24 04/01/24 Unknown Active Medications Generic Name Dose Route Start Last Admin Trade Name Freq PRN Reason Stop Dose Admin Al Hydrox/Mg Hydrox/Simethicone 30 ml 04/04/24 11:27 04/06/24 12:43 Aluminum/Magnesium Susp 30 Ml Udc PO 05/04/24 11:26 30 ml Q6H PRN Administration Dyspepsia Atorvastatin Calcium 40 mg 04/02/24 09:00 04/06/24 08:44 Atorvastatin 40 Mg Tab PO 05/02/24 08:59 40 mg DAILY KAREEN Administration Baclofen 10 mg 04/04/24 22:48 04/05/24 20:36 Baclofen 10 Mg Tab PO 05/05/24 08:59 10 mg TID PRN Administration muscle spasms Duloxetine HCl 60 mg 04/02/24 09:00 04/06/24 08:44 Duloxetine Hcl 60 Mg Cap PO 05/02/24 08:59 60 mg DAILY KAREEN Administration Famotidine 20 mg 04/06/24 12:15 04/06/24 12:56 Famotidine 20 Mg Tab PO 05/06/24 12:14 20 mg BID KAREEN Administration Gabapentin 400 mg 04/01/24 21:00 04/06/24 12:58 Gabapentin 400 Mg Cap PO 05/01/24 20:59 400 mg TID KAREEN Administration Hydrocortisone 10 mg 04/06/24 09:00 04/06/24 08:44 Hydrocortisone 10 Mg Tab PO 05/06/24 08:59 10 mg QAM KAREEN Administration Hydromorphone HCl 1 mg 04/04/24 11:27 04/04/24 15:09 Hydromorphone Inj 1 Mg/Ml Syringe IV 04/18/24 11:26 1 mg Q3H PRN Administration SEVERE Pain (Scale 7,8,9,10) Hydroxychloroquine Sulfate 400 mg 04/01/24 21:00 04/05/24 20:14 Hydroxychloroquine Sulfate 200 Mg Tab PO 05/01/24 20:59 400 mg HS KAREEN Administration Hydroxyzine HCl 25 mg 04/04/24 11:27 04/04/24 20:27 Hydroxyzine Hcl 25 Mg Tab PO 05/04/24 11:26 25 mg Q8H PRN Administration Anxiety Magnesium Hydroxide 30 ml 04/04/24 11:27 04/06/24 12:52 Magnesium Hydroxide Susp 30 Ml Udc PO 05/04/24 11:26 30 ml Q24H PRN Administration Constipation Midodrine 10 mg 04/02/24 07:00 04/06/24 12:43 Midodrine Hcl 10 Mg Tab PO 05/02/24 06:59 10 mg 0700,1200,1500 KAREEN Administration Mirtazapine 7.5 mg 04/01/24 21:00 04/05/24 20:14 Mirtazapine Tab 15 Mg Tab PO 05/01/24 20:59 7.5 mg HS KAREEN Administration Oxycodone HCl 5 - 10 mg 04/04/24 11:27 04/05/24 20:36 Oxycodone Hcl Ir 5 Mg Tab (Immediate Release) PO 04/18/24 11:26 10 mg Q4H PRN Administration Pain & Pre PT Pantoprazole Sodium 40 mg 04/01/24 21:00 04/06/24 08:44 Pantoprazole 40 Mg Tab PO 05/01/24 20:59 40 mg BID KAREEN Administration Polyethylene Glycol 17 gm 04/05/24 06:00 04/06/24 12:43 Polyethylene (Miralax) 17 Gm Pack PO 05/05/24 05:59 Not Given Q6 KAREEN Potassium Chloride 10 meq 04/01/24 21:00 04/06/24 08:49 Potassium Chloride 10 Meq Tabcr PO 05/01/24 20:59 10 meq BID KAREEN Administration Ropinirole HCl 2 mg 04/01/24 21:00 04/05/24 20:14 Ropinirole Hcl 2 Mg Tablet PO 05/01/24 20:59 2 mg HS KAREEN Administration Senna/Docusate Sodium 2 tab 04/04/24 21:00 04/05/24 20:14 Docusate Sodium/Senna 50/8.6mg Tab PO 05/04/24 20:59 2 tab HS KAREEN Administration Trazodone HCl 200 mg 04/04/24 22:50 04/05/24 20:14 Trazodone Hcl 100 Mg Tab PO 05/04/24 22:49 200 mg HS KAREEN Administration Triamcinolone Acetonide 1 appln 04/01/24 21:00 04/06/24 08:43 Triamcinolone Acet 0.5% Cr 15 Gm Tube TOP 05/01/24 20:59 1 appln BID KAREEN Administration
--- NOTE | 2024-04-06 15:48 | Hospitalist Progress Note ---
Date of Service April 06, 2024 Assessment & Plan (1) Decreased sensation: Plan Past medical history of [place]'s disease, hyperlipidemia, orthostatic hypotension, GERD, irritable bowel syndrome, CKD, lumbar degenerative disease, osteoarthritis, lupus, generalized anxiety disorder presented to the hospital for evaluation of decreased sensation gradually progressing from her feet up to mid abdomen since the morning of arrival 04/01. C5-C6 compressive myelopathy --S/P #1 anterior cervical corpectomy with bilateral foraminotomies C6. #2 anterior cervical arthrodesis C5-C7. #3 placement of Spira 23 mm cage filled with os designed and locally harvested morselized autograft C5-C7. #4 application of K2 M plate and screws from C5-C7 On April 04, 2024 --Patient presents with pins and needlelike sensation extending from feet up to subxiphoid area gradually over few hours on 04/01 AM. No motor weakness (left leg weakness at baseline). No history of trauma/fall recently. No incontinence s/s. No back /spine pain on exam, no fever. --Electrolytes within normal limits. B12 and TSH wnl. --CK within normal limits --CTA aorta with runoffno acute finding --MR L spine and T spine - age related finding as well as evidence of previous fusion of L4-S1. --MR C spine w/ c5-6 compressive myelopathy and Multilevel disc bulges with spinal canal and neural foraminal stenosis. -- Patient reports persistent symptoms despite surgery --Will repeat MRI brain, spine as recommended by neurology --Appreciate neurology input: Will discontinue gabapentin and start on Lyrica --Patient will need EMG/Nerve conduction studies as outpatient --Continue PT OT --Pain control Continue home hydrocortisone Appreciate orthopedics help Constipation Continue bowel regimen GERD continue PPI, Pepcid Chronic conditions; Lupuscontinue on Plaquenil Maxx's diseasecontinue on hydrocortisone Mood disordercontinue on duloxetine, mirtazapine Orthostatic hypotensioncontinue midodrine Code Status Full code DVT Px: Resume Heparin if ok with Surgery Disposition To be determined Admission and Anticipated Discharge Date Admission Date: April 01, 2024 Subjective Patient is seen and examined at bedside Reports numbness, lower extremity weakness Also reports heartburn and constipation Denies any chest pain, dyspnea, nausea, vomiting, abdominal pain Review of Systems Review of Systems: All systems reviewed & are unremarkable except as noted in Subjective Physical Exam Physical Exam: Physical Exam: Vitals signs as noted above General Appearance:Obese, no apparent distress Head: normocephalic, Atraumatic Eyes: normal inspection, EOMI Neck: supple, Trachea midline Respiratory/Chest: Normal breath sounds, CTA, No accessory muscle use Cardiovascular: S1, S2, No murmur Abdomen/GI:Soft, Non tender, Bowel sounds present Extremities/Musculoskeletal:normal inspection, no edema Neurologic/Psych:AAOX3, left lower extremity decreased strength, +numbness Skin: normal color, warm Results & Data Results & Data Vital Signs (Past 12 Hours) Vital Signs Temp Pulse Resp BP Pulse Ox O2 Del Method O2 Flow Rate 04/06/24 10:54 70 16 93 Nasal Cannula 4 04/06/24 08:00 Nasal Cannula 04/06/24 08:00 68 20 95 Nasal Cannula 4 04/06/24 07:27 36.4 C L 69 16 135/83 91 Nasal Cannula 4 04/06/24 04:19 84 16 90 Nasal Cannula 2 Laboratory Results Short CBC 04/06/24 Range/Units 06:51 WBC 18.88 H (4.8-10.8) K/ul Hgb 15.2 (12.0-16.0) g/dl Hct 45.6 (37.0-47.0) % Plt Count 296 (130-400) K/uL BMP 04/06/24 06:51 Sodium 139 Potassium 4.3 Chloride 102 Carbon Dioxide 30 BUN 17 Creatinine 0.81 Glucose 132 H Calcium 10.3
[2024-04-06] MEDS: PREGABALIN 50 MG CAP PO SCH (20:09)
[2024-04-07 06:38] LABS: Hematocrit (blood only) 45.2 % (37.0-47.0); Hemoglobin 15.1 g/dl (12.0-16.0); Mean Corpuscular Hemoglobin 28.5 pg (25.0-34.0); Mean Corpuscular Hgb Conc 33.4 g/dL (32.0-36.0); Mean Corpuscular Volume 85.3 fL (80.0-100.0); Mean Platelet Volume 10.6 fL (9.4-12.4); Platelet Count 226 K/uL (130-400); RDW Coefficient of Variation 14.6 % (11.5-14.5); RDW Standard Deviation 45.4 fL (36.4-46.3); White Blood Count 13.21 K/ul (4.8-10.8)
[2024-04-07 06:56] LABS: BUN Creatinine Ratio 23.8 (10-20); Calcium 9.9 mg/dl (8.6-10.3); Potassium 3.9 mmol/L (3.5-5.1)
--- NOTE | 2024-04-07 09:52 | XRay Report ---
KUB HISTORY: contipation COMPARISON STUDY: 04/01/2024 CT FINDINGS: Stable right upper quadrant surgical clips and lower lumbar metallic fusion. There is moder ate retained stool. No bowel obstruction seen. No gross free air. IMPRESSION: Moderate retained stool. ACT 112: Negative or not required by law. The above report was generated using voice recognition software. It may contain grammatical, syntax o r spelling errors. Electronically signed by: Earl Alfonso M.D. 04/07/2024 9:51 AM
--- NOTE | 2024-04-07 10:22 | Orthopedic Progress Note ---
Date of Service April 07, 2024 Assessment & Plan (1) Myelopathy concurrent with and due to spinal stenosis of cervical region: Plan: Neurology has requested total spine imaging including the brain. We will await these results. MRI of the cervical spine will be compromised as she is only a few days postop. Admission and Anticipated Discharge Date Admission Date: April 01, 2024 Subjective Patient continues to have numbness in the lower extremities. She is able to move about the room and has been attempting ambulation regularly. Physical Exam Physical Exam: Patient continues to demonstrate dense numbness in the lower extremities. Upper extremities intact. Results & Data Vital Signs (Past 12 Hours) Vital Signs Temp Pulse Resp BP Pulse Ox O2 Del Method 04/07/24 07:46 70 16 90 Room Air 04/07/24 05:42 36.3 C L 73 16 137/80 90 Room Air 04/07/24 03:00 67 17 90 Room Air 04/06/24 23:28 76 16 93 Room Air
[2024-04-07] MEDS: SOD PHOSPHATE/SOD BIPHOSPHATE ENEMA 132 ML BTL PR ONE (13:04)
--- NOTE | 2024-04-07 17:43 | Hospitalist Progress Note ---
Date of Service April 07, 2024 Assessment & Plan (1) Decreased sensation: Plan Past medical history of [place]'s disease, hyperlipidemia, orthostatic hypotension, GERD, irritable bowel syndrome, CKD, lumbar degenerative disease, osteoarthritis, lupus, generalized anxiety disorder presented to the hospital for evaluation of decreased sensation gradually progressing from her feet up to mid abdomen since the morning of arrival 04/01. C5-C6 compressive myelopathy --S/P #1 anterior cervical corpectomy with bilateral foraminotomies C6. #2 anterior cervical arthrodesis C5-C7. #3 placement of Spira 23 mm cage filled with os designed and locally harvested morselized autograft C5-C7. #4 application of K2 M plate and screws from C5-C7 On April 04, 2024 --Patient presents with pins and needlelike sensation extending from feet up to subxiphoid area gradually over few hours on 04/01 AM. No motor weakness (left leg weakness at baseline). No history of trauma/fall recently. No incontinence s/s. No back /spine pain on exam, no fever. --Electrolytes within normal limits. B12 and TSH wnl. --CK within normal limits --CTA aorta with runoffno acute finding --MR L spine and T spine - age related finding as well as evidence of previous fusion of L4-S1. --MR C spine w/ c5-6 compressive myelopathy and Multilevel disc bulges with spinal canal and neural foraminal stenosis. -- Patient reports persistent symptoms despite surgery --Will repeat MRI brain, spine as recommended by neurology --Appreciate neurology input: Will discontinue gabapentin and start on Lyrica --Patient will need EMG/Nerve conduction studies as outpatient --Continue PT OT --Pain control Continue home hydrocortisone Appreciate orthopedics help Persistent neurological symptoms Further management based on MRIs Constipation KUB:Moderate retained stool. Continue bowel regimen Enema as needed GERD continue PPI, Pepcid Chronic conditions; Lupuscontinue on Plaquenil [place]'s diseasecontinue on hydrocortisone Mood disordercontinue on duloxetine, mirtazapine Orthostatic hypotensioncontinue midodrine Code Status Full code DVT Px: Resume Heparin if ok with Surgery Disposition To be determined Admission and Anticipated Discharge Date Admission Date: April 01, 2024 Subjective Patient is seen and examined at bedside Reports persistent numbness, lower extremity weakness Also has constipation KUB showed no signs of obstruction Denies any chest pain, dyspnea, nausea, vomiting, abdominal pain Review of Systems Review of Systems: All systems reviewed & are unremarkable except as noted in Subjective Physical Exam Physical Exam: Physical Exam: Vitals signs as noted above General Appearance:Obese, no apparent distress Head: normocephalic, Atraumatic Eyes: normal inspection, EOMI Neck: supple, Trachea midline Respiratory/Chest: Normal breath sounds, CTA, No accessory muscle use Cardiovascular: S1, S2, No murmur Abdomen/GI:Soft, Non tender, Bowel sounds present Extremities/Musculoskeletal:normal inspection, no edema Neurologic/Psych:AAOX3, left lower extremity decreased strength, +numbness Skin: normal color, warm Results & Data Results & Data Vital Signs (Past 12 Hours) Vital Signs Temp Pulse Resp BP Pulse Ox O2 Del Method 04/07/24 15:00 77 18 89 L Room Air 04/07/24 14:55 36.5 C 70 16 133/79 96 Room Air 04/07/24 11:36 126/81 04/07/24 11:25 73 16 92 Room Air 04/07/24 07:46 70 16 90 Room Air 04/07/24 05:42 36.3 C L 73 16 137/80 90 Room Air Laboratory Results Short CBC 04/07/24 Range/Units 06:05 WBC 13.21 H (4.8-10.8) K/ul Hgb 15.1 (12.0-16.0) g/dl Hct 45.2 (37.0-47.0) % Plt Count 226 (130-400) K/uL BMP 04/07/24 06:05 Sodium 138 Potassium 3.9 Chloride 101 Carbon Dioxide 32 BUN 20 Creatinine 0.84 Glucose 102 H Calcium 9.9
[2024-04-08 06:39] LABS: Hematocrit (blood only) 45.7 % (37.0-47.0); Hemoglobin 15.4 g/dl (12.0-16.0); Mean Corpuscular Hemoglobin 28.8 pg (25.0-34.0); Mean Corpuscular Hgb Conc 33.7 g/dL (32.0-36.0); Mean Corpuscular Volume 85.4 fL (80.0-100.0); Mean Platelet Volume 10.1 fL (9.4-12.4); Platelet Count 214 K/uL (130-400); RDW Coefficient of Variation 14.4 % (11.5-14.5); Red Blood Count 5.35 M/uL (4.20-5.40); White Blood Count 13.48 K/ul (4.8-10.8)
[2024-04-08 06:55] LABS: Calcium 9.6 mg/dl (8.6-10.3); Creatinine Clr Calc Pharmacy 79.7 ml/min; Potassium 4.2 mmol/L (3.5-5.1)
[2024-04-08] MEDS: LORazepam 2 MG/1 ML VIAL IV PRN (17:09)
--- NOTE | 2024-04-08 17:38 | Hospitalist Progress Note ---
Date of Service April 08, 2024 Assessment & Plan (1) Decreased sensation: Plan Past medical history of [place]'s disease, hyperlipidemia, orthostatic hypotension, GERD, irritable bowel syndrome, CKD, lumbar degenerative disease, osteoarthritis, lupus, generalized anxiety disorder presented to the hospital for evaluation of decreased sensation gradually progressing from her feet up to mid abdomen since the morning of arrival 04/01. C5-C6 compressive myelopathy --S/P #1 anterior cervical corpectomy with bilateral foraminotomies C6. #2 anterior cervical arthrodesis C5-C7. #3 placement of Spira 23 mm cage filled with os designed and locally harvested morselized autograft C5-C7. #4 application of K2 M plate and screws from C5-C7 On April 04, 2024 --Patient presents with pins and needlelike sensation extending from feet up to subxiphoid area gradually over few hours on 04/01 AM. No motor weakness (left leg weakness at baseline). No history of trauma/fall recently. No incontinence s/s. No back /spine pain on exam, no fever. --Electrolytes within normal limits. B12 and TSH wnl. --CK within normal limits --CTA aorta with runoffno acute finding --MR L spine and T spine - age related finding as well as evidence of previous fusion of L4-S1. --MR C spine w/ c5-6 compressive myelopathy and Multilevel disc bulges with spinal canal and neural foraminal stenosis. -- Patient reports persistent symptoms despite surgery -- Unable to obtain extensive workup: MRI brain, spine as recommended by neurology as patient intolerant to lying flat. Discussed with orthopedic spine on 04/08/2024. Recommends to get thoracic MRI along for now --Appreciate neurology input: Will discontinue gabapentin and start on Lyrica --Patient will need EMG/Nerve conduction studies as outpatient --Continue PT OT --Pain control Continue home hydrocortisone Appreciate orthopedics help Subjectively no improvement of neurological symptoms Further management to be based on MRI determined based on MRI thoracic spine Constipation KUB:Moderate retained stool. 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 Mood disordercontinue on duloxetine, mirtazapine Orthostatic hypotensioncontinue midodrine Code Status Full code DVT Px: Resume Heparin if ok with Surgery Disposition To be determined Admission and Anticipated Discharge Date Admission Date: April 01, 2024 Subjective Patient is seen and examined at bedside No new complaints Had bowel movement after enema today Persistent numbness below xiphoid process Denies any chest pain, dyspnea, nausea, vomiting, abdominal pain Review of Systems Review of Systems: All systems reviewed & are unremarkable except as noted in Subjective Physical Exam Physical Exam: Physical Exam: Vitals signs as noted above General Appearance:Obese, no apparent distress Head: normocephalic, Atraumatic Eyes: normal inspection, EOMI Neck: supple, Trachea midline Respiratory/Chest: Normal breath sounds, CTA, No accessory muscle use Cardiovascular: S1, S2, No murmur Abdomen/GI:Soft, Non tender, Bowel sounds present Extremities/Musculoskeletal:normal inspection, no edema Neurologic/Psych:AAOX3, left lower extremity decreased strength, +numbness Skin: normal color, warm Results & Data Results & Data Vital Signs (Past 12 Hours) Vital Signs Temp Pulse Pulse Pulse Resp BP Pulse Ox 04/08/24 12:29 36.9 C 91 H 16 136/100 94 04/08/24 08:05 98 H 18 90 04/08/24 07:54 36.9 C 87 17 136/100 91 04/08/24 07:02 37.0 C 88 18 129/82 91 O2 Del Method 04/08/24 12:29 Room Air 04/08/24 08:05 Room Air 04/08/24 07:54 Room Air 04/08/24 07:02 Room Air Laboratory Results Short CBC 04/08/24 Range/Units 06:15 WBC 13.48 H (4.8-10.8) K/ul Hgb 15.4 (12.0-16.0) g/dl Hct 45.7 (37.0-47.0) % Plt Count 214 (130-400) K/uL BMP 04/08/24 06:15 Sodium 138 Potassium 4.2 Chloride 99 Carbon Dioxide 32 BUN 18 Creatinine 0.90 Glucose 99 Calcium 9.6
[2024-04-08] MEDS: GADOBUTROL 65ML VIAL IV ONE (18:22)
--- NOTE | 2024-04-08 19:58 | Magnetic Resonance Report ---
EXAM: MR thoracic spine wo/w con CLINICAL HISTORY: lower ext numbness. TECHNIQUE: Multiplanar, multi-sequential MRI of the thoracic spine was performed before and after the administration of intravenous contrast. Imaging includes T1-weighted, T2-weighted, and STIR sequences in sagittal and axial planes. Post-contrast sequences were obtained to assess for any abnormal enhancement. COMPARISON: MRI dated 04/01/2024. FINDINGS: Interval C5-6 and C6-7 discectomy, spinal fusion and internal fixation. The lesion was not fully covered in today's study. Redemonstration of L4, L5 and S1 vertebral fusion and internal fixation. Mild lumbar spondylotic changes with mild multilevel disc herniations. Today's examination is degraded by patient's involuntary motion. Vertebrae: Normal alignment of the thoracic vertebrae. No fractures, lytic or sclerotic lesions. Mild spondylotic change noted. Schmor's node at the upper endplate of T7 vertebra. Fatty marrow changes of T6-7 opposing vertebral endplates. A small round T1W/T2W hyperintense focus at T11 vertebral body, could be a hemangioma. Intervertebral Discs: Mild decreased height and signal intensity of the intervertebral discs. Pfirmann grade 2. Level by level analysis: C7-T1: No significant disc pathology. No significant spinal canal stenosis. T1-T2: No significant disc pathology. No significant spinal canal stenosis. T2-T3: No significant disc pathology. No significant spinal canal stenosis. T3-T4: No significant disc pathology. No significant spinal canal stenosis. T4-T5: No significant disc pathology. No significant spinal canal stenosis. T5-T6: No significant disc pathology. No significant spinal canal stenosis. T6-T7: Minimal posterior central disc protrusion, indenting ventral thecal aspect and no foraminal compromise. No significant spinal canal stenosis. T7-T8: No significant disc pathology. No significant spinal canal stenosis. T8-T9: No significant disc pathology. No significant spinal canal stenosis. T9-T10: No significant disc pathology. No significant spinal canal stenosis. T10-T11: No significant disc pathology. No significant spinal canal stenosis. T11-T12: No significant disc pathology. No significant spinal canal stenosis. Spinal Cord: Normal signal intensity and morphology of the spinal cord. No evidence of intrinsic cord lesions, syrinx, or abnormal signal changes. Spinal Canal and Neural Foramina: Spinal canal is of normal caliber with no evidence of spinal stenosis. Neural foramina are patent bilaterally at all levels. No evidence of nerve root compression. Normal ligamentum flava morphology. Facet Joints: Normal appearance of the facet joints. No evidence of facet arthropathy or significant degenerative changes. Soft Tissues: Normal appearance of the paraspinal soft tissues. No abnormal masses, fluid collections, or signs of inflammation. Thoracic Kyphosis: Normal thoracic kyphosis without abnormal curvature IMPRESSION: 1. Interval cervical spine fusion and internal fixation, the lesion is not fully covered into the study. 2. Redemonstration of the previously noted thoracic spine degenerative changes with minimal T6-7 disc protrusion. 3. Redemonstration of the previously noted L4, L5 and S1 vertebral fixation, mild lumbar degenerative changes and mild multilevel disc herniations. Electronically signed by Mel Cornejo 04-08-2024 7:58 PM
--- NOTE | 2024-04-09 13:09 | Hospitalist Progress Note ---
Date of Service April 09, 2024 Assessment & Plan (1) Decreased sensation: Plan Past medical history of [place]'s disease, hyperlipidemia, orthostatic hypotension, GERD, irritable bowel syndrome, CKD, lumbar degenerative disease, osteoarthritis, lupus, generalized anxiety disorder presented to the hospital for evaluation of decreased sensation gradually progressing from her feet up to mid abdomen since the morning of arrival 04/01. C5-C6 compressive myelopathy --S/P #1 anterior cervical corpectomy with bilateral foraminotomies C6. #2 anterior cervical arthrodesis C5-C7. #3 placement of Spira 23 mm cage filled with os designed and locally harvested morselized autograft C5-C7. #4 application of K2 M plate and screws from C5-C7 On April 04, 2024 --Patient presents with pins and needlelike sensation extending from feet up to subxiphoid area gradually over few hours on 04/01 AM. No motor weakness (left leg weakness at baseline). No history of trauma/fall recently. No incontinence s/s. No back /spine pain on exam, no fever. --Electrolytes within normal limits. B12 and TSH wnl. --CK within normal limits --CTA aorta with runoffno acute finding --MR L spine and T spine - age related finding as well as evidence of previous fusion of L4-S1. --MR C spine w/ c5-6 compressive myelopathy and Multilevel disc bulges with spinal canal and neural foraminal stenosis. -- Patient reports persistent symptoms despite surgery -- Unable to obtain extensive workup: MRI brain, spine as recommended by neurology as patient intolerant to lying flat. Discussed with orthopedic spine on 04/08/2024. Recommends to get thoracic MRI along for now --Thoracic Spine MRI:Interval cervical spine fusion and internal fixation, the lesion is not fully covered into the study. Redemonstration of the previously noted thoracic spine degenerative changes with minimal T6-7 disc protrusion. Redemonstration of the previously noted L4, L5 and S1 vertebral fixation, mild lumbar degenerative changes and mild multilevel disc herniations. --Appreciate neurology input: Will discontinue gabapentin and start on Lyrica --Patient will need EMG/Nerve conduction studies as outpatient --Continue PT OT, fall precautions --Pain control Continue home hydrocortisone Appreciate orthopedics help Patient reports persistent numbness below the xiphoid process down to lower extremity Constipation KUB:Moderate retained stool. Continue bowel regimen Enema as needed GERD continue PPI, Pepcid Chronic conditions; Lupuscontinue on Plaquenil [place]'s diseasecontinue on hydrocortisone Mood disordercontinue on duloxetine, mirtazapine Orthostatic hypotensioncontinue midodrine Code Status Full code DVT Px: Resume Heparin if ok with Surgery Disposition To be determined Admission and Anticipated Discharge Date Admission Date: April 01, 2024 Subjective Patient is seen and examined at bedside Subjectively feels the same as yesterday Offers no new complaints Persistent numbness below xiphoid process Denies any chest pain, dyspnea, nausea, vomiting, abdominal pain Review of Systems Review of Systems: All systems reviewed & are unremarkable except as noted in Subjective Physical Exam Physical Exam: Physical Exam: Vitals signs as noted above General Appearance:Obese, no apparent distress Head: normocephalic, Atraumatic Eyes: normal inspection, EOMI Neck: supple, Trachea midline Respiratory/Chest: Normal breath sounds, CTA, No accessory muscle use Cardiovascular: S1, S2, No murmur Abdomen/GI:Soft, Non tender, Bowel sounds present Extremities/Musculoskeletal:normal inspection, no edema Neurologic/Psych:AAOX3, left lower extremity decreased strength/mobility chronic +numbness below the xiphoid process down to lower extremities Skin: normal color, warm Results & Data Results & Data Vital Signs (Past 12 Hours) Vital Signs Temp Pulse Resp BP Pulse Ox O2 Del Method 04/09/24 07:12 36.3 C L 84 16 114/75 92 Room Air
[2024-04-10 06:24] LABS: Hematocrit (blood only) 44.5 % (37.0-47.0); Mean Corpuscular Hemoglobin 28.6 pg (25.0-34.0); Mean Corpuscular Hgb Conc 33.7 g/dL (32.0-36.0); Mean Corpuscular Volume 84.8 fL (80.0-100.0); Mean Platelet Volume 10.6 fL (9.4-12.4); Platelet Count 234 K/uL (130-400); RDW Standard Deviation 43.1 fL (36.4-46.3); Red Blood Count 5.25 M/uL (4.20-5.40); White Blood Count 10.61 K/ul (4.8-10.8)
[2024-04-10 06:35] LABS: BUN Creatinine Ratio 14.4 (10-20); Calcium 9.4 mg/dl (8.6-10.3); Creatinine Clr Calc Pharmacy 73.7 ml/min; Potassium 3.8 mmol/L (3.5-5.1)
--- NOTE | 2024-04-10 07:39 | Orthopedic Progress Note ---
Date of Service April 10, 2024 Assessment & Plan (1) Myelopathy concurrent with and due to spinal stenosis of cervical region: Plan: Zay is status post C6 corpectomy. No change or improvement of her preoperative symptoms. Second thoracic MRI is unable to explain her symptoms. No acute findings found. Neurology has been brought back into the case. They recommend outpatient EMGs. Also recommend a brain MRI. We will continue to follow. Admission and Anticipated Discharge Date Admission Date: April 01, 2024 Subjective Zay is status post C6 corpectomy. No change in her symptoms. She will has numbness from the xiphoid distally. No upper extremity symptoms. No dysphagia or dysphonia. She is ambulating a little bit around the room. Second thoracic MRI during her hospital stay has been completed. No acute findings. Review of Systems Review of Systems: All systems reviewed & are unremarkable except as noted in HPI & below Physical Exam Physical Exam: She sitting up in bed in no acute distress Cervical incision is clean dry and intact Minimal edema strength unchanged upper and lower extremities Results & Data Vital Signs (Past 12 Hours) Vital Signs Temp Pulse Resp BP BP Pulse Ox O2 Del Method 04/10/24 07:11 36.3 C L 82 16 104/69 90 Room Air 04/09/24 19:42 93 Room Air 04/09/24 19:41 36.9 C 98 H 18 105/72 91 Room Air Diagnostic Findings [place], [place] [phone] Magnetic Resonance Report Patient: ZAY CREWS Admit Date: 04/01/24 MR#: [id number] Address1: [address] [place] [address] Acct ID:[id number] Address2: [facility] [address] Date: 1965 [facility] Zip: [place] [address] Age: 58 Location: 3E Sex: F Room/Bed: [facility] Att Phy: Jose De Jesus Leger MD Diagnosis: NUMBNESS LOWER EXTREMITIES Daniela Phy: Shazia Bee MD Service Date: 04/08/24 Fam Phy: Interpreting Phy: Mel Cornejo MDAdmit Phy: Hong Bobo MD Ordering Phy: Lucio Tena D.O. cc: ~ EXAM: MR thoracic spine wo/w con CLINICAL HISTORY: lower ext numbness. TECHNIQUE: Multiplanar, multi-sequential MRI of the thoracic spine was performed before and after the administration of intravenous contrast. Imaging includes T1-weighted, T2-weighted, and STIR sequences in sagittal and axial planes. Post-contrast sequences were obtained to assess for any abnormal enhancement. COMPARISON: MRI dated 04/01/2024. FINDINGS: Interval C5-6 and C6-7 discectomy, spinal fusion and internal fixation. The lesion was not fully covered in today's study. Redemonstration of L4, L5 and S1 vertebral fusion and internal fixation. Mild lumbar spondylotic changes with mild multilevel disc herniations. Today's examination is degraded by patient's involuntary motion. Vertebrae: Normal alignment of the thoracic vertebrae. No fractures, lytic or sclerotic lesions. Mild spondylotic change noted. Schmor's node at the upper endplate of T7 vertebra. Fatty marrow changes of T6-7 opposing vertebral endplates. A small round T1W/T2W hyperintense focus at T11 vertebral body, could be a hemangioma. Intervertebral Discs: Mild decreased height and signal intensity of the intervertebral discs. Pfirmann grade 2. Level by level analysis: C7-T1: No significant disc pathology. No significant spinal canal stenosis. T1-T2: No significant disc pathology. No significant spinal canal stenosis. T2-T3: No significant disc pathology. No significant spinal canal stenosis. T3-T4: No significant disc pathology. No significant spinal canal stenosis. T4-T5: No significant disc pathology. No significant spinal canal stenosis. T5-T6: No significant disc pathology. No significant spinal canal stenosis. T6-T7: Minimal posterior central disc protrusion, indenting ventral thecal aspect and no foraminal compromise. No significant spinal canal stenosis. T7-T8: No significant disc pathology. No significant spinal canal stenosis. T8-T9: No significant disc pathology. No significant spinal canal stenosis. T9-T10: No significant disc pathology. No significant spinal canal stenosis. T10-T11: No significant disc pathology. No significant spinal canal stenosis. T11-T12: No significant disc pathology. No significant spinal canal stenosis. Spinal Cord: Normal signal intensity and morphology of the spinal cord. No evidence of intrinsic cord lesions, syrinx, or abnormal signal changes. Spinal Canal and Neural Foramina: Spinal canal is of normal caliber with no evidence of spinal stenosis. Neural foramina are patent bilaterally at all levels. No evidence of nerve root compression. Normal ligamentum flava morphology. Facet Joints: Normal appearance of the facet joints. No evidence of facet arthropathy or significant degenerative changes. Soft Tissues: Normal appearance of the paraspinal soft tissues. No abnormal masses, fluid collections, or signs of inflammation. Thoracic Kyphosis: Normal thoracic kyphosis without abnormal curvature IMPRESSION: 1. Interval cervical spine fusion and internal fixation, the lesion is not fully covered into the study. 2. Redemonstration of the previously noted thoracic spine degenerative changes with minimal T6-7 disc protrusion. 3. Redemonstration of the previously noted L4, L5 and S1 vertebral fixation, mild lumbar degenerative changes and mild multilevel disc herniations. Electronically signed by Mel Cornejo 04-08-2024 7:58 PM Dictated: 04/08/24 2501 Transcribed:
[2024-04-10] MEDS: SODIUM CHLORIDE 0.9% 500 ML IV ONE (12:21)
--- NOTE | 2024-04-10 14:42 | Hospitalist Progress Note ---
Date of Service April 10, 2024 Assessment & Plan (1) Decreased sensation: Plan Past medical history of [place]'s disease, hyperlipidemia, orthostatic hypotension, GERD, irritable bowel syndrome, CKD, lumbar degenerative disease, osteoarthritis, lupus, generalized anxiety disorder presented to the hospital for evaluation of decreased sensation gradually progressing from her feet up to mid abdomen since the morning of arrival 04/01. C5-C6 compressive myelopathy --S/P #1 anterior cervical corpectomy with bilateral foraminotomies C6. #2 anterior cervical arthrodesis C5-C7. #3 placement of Spira 23 mm cage filled with os designed and locally harvested morselized autograft C5-C7. #4 application of K2 M plate and screws from C5-C7 On April 04, 2024 --Patient presents with pins and needlelike sensation extending from feet up to subxiphoid area gradually over few hours on 04/01 AM. No motor weakness (left leg weakness at baseline). No history of trauma/fall recently. No incontinence s/s. No back /spine pain on exam, no fever. --Electrolytes within normal limits. B12 and TSH wnl. --CK within normal limits --CTA aorta with runoffno acute finding --MR L spine and T spine - age related finding as well as evidence of previous fusion of L4-S1. --MR C spine w/ c5-6 compressive myelopathy and Multilevel disc bulges with spinal canal and neural foraminal stenosis. -- Patient reports persistent symptoms despite surgery --Thoracic Spine MRI:Interval cervical spine fusion and internal fixation, the lesion is not fully covered into the study. Redemonstration of the previously noted thoracic spine degenerative changes with minimal T6-7 disc protrusion. Redemonstration of the previously noted L4, L5 and S1 vertebral fixation, mild lumbar degenerative changes and mild multilevel disc herniations. --Appreciate neurology input: Will discontinue gabapentin and start on Lyrica --Patient will need EMG/Nerve conduction studies as outpatient --Continue PT OT, fall precautions --Pain control Continue home hydrocortisone Appreciate orthopedics help Patient reports persistent numbness below the xiphoid process down to lower extremity MRI thoracic spine findings do not correlate with her symptoms Will obtain MRI brain today Per discussion with patient's family on 04/10/2024: Patient had chronic numbness. Given history of lupus in setting of acute surgery, likely neurological symptoms worsened. Encourage patient to go to rehab once cleared by surgery Constipation KUB:Moderate retained stool. Continue bowel regimen Enema as needed GERD continue PPI, Pepcid Chronic conditions; Lupuscontinue on Plaquenil [place]'s diseasecontinue on hydrocortisone Mood disordercontinue on duloxetine, mirtazapine Orthostatic hypotensioncontinue midodrine Code Status Full code DVT Px: Resume Heparin if ok with Surgery Disposition To be determined Admission and Anticipated Discharge Date Admission Date: April 01, 2024 Subjective Patient is seen and examined at bedside no new complaints Persistent numbness below xiphoid process Denies any chest pain, dyspnea, nausea, vomiting, abdominal pain Updated patient's family over the phone Patient agrees to get MRI brain today Review of Systems Review of Systems: All systems reviewed & are unremarkable except as noted in Subjective Physical Exam Physical Exam: Physical Exam: Vitals signs as noted above General Appearance:Obese, no apparent distress Head: normocephalic, Atraumatic Eyes: normal inspection, EOMI Neck: supple, Trachea midline Respiratory/Chest: Normal breath sounds, CTA, No accessory muscle use Cardiovascular: S1, S2, No murmur Abdomen/GI:Soft, Non tender, Bowel sounds present Extremities/Musculoskeletal:normal inspection, no edema Neurologic/Psych:AAOX3, left lower extremity decreased strength/mobility chronic +numbness below the xiphoid process down to lower extremities Skin: normal color, warm Results & Data Results & Data Vital Signs (Past 12 Hours) Vital Signs Temp Pulse Resp BP Pulse Ox O2 Del Method 04/10/24 07:11 36.3 C L 82 16 104/69 90 Room Air Laboratory Results Short CBC 04/10/24 Range/Units 05:56 WBC 10.61 (4.8-10.8) K/ul Hgb 15.0 (12.0-16.0) g/dl Hct 44.5 (37.0-47.0) % Plt Count 234 (130-400) K/uL BMP 04/10/24 05:56 Sodium 136 Potassium 3.8 Chloride 99 Carbon Dioxide 30 BUN 14 Creatinine 0.97 Glucose 109 H Calcium 9.4
[2024-04-10] MEDS: GADOBUTROL 65ML VIAL IV ONE (16:54)
--- NOTE | 2024-04-10 19:51 | Magnetic Resonance Report ---
EXAM: MR brain wo/w con CLINICAL HISTORY: Stroke-like symptoms TECHNIQUE: MRI of the brain was performed with and without intravenous contrast administration of 9 ml Gadavist. Sequences obtained include pre-contrast and post-contrast T1-weighted, T2-weighted, FLAIR (Fluid-Attenuated Inversion Recovery), DWI (Diffusion-Weighted Imaging), and ADC (Apparent Diffusion Coefficient) sequences. COMPARISON: None. FINDINGS: Brain Parenchyma: Subcortical deep white matter hyperintense foci are seen in the periventricular area in the centrum semioval mostly indicating deep white matter microvascular ischemia. No evidence of acute infarction or hemorrhage. Pedroza-white matter differentiation is preserved. No abnormal signal-intensity lesions were identified. Post-Contrast Findings: No abnormal enhancement of the brain parenchyma or meninges. Ventricles and Sulci: The ventricular system is within normal limits without evidence of hydrocephalus. Sulci and cisternal spaces are age-appropriate. Brainstem and Cerebellum: Normal appearance of the brainstem and cerebellum without focal lesions or abnormal enhancement. Vessels: Intracranial vessels appear normal without evidence of vascular malformations or aneurysms. Skull and Calvarium: No evidence of skull vault lesions or abnormal marrow signals within the calvarium. IMPRESSION: 1. No evidence of acute infarction, hemorrhage, or abnormal contrast enhancement. 2. Subcortical deep white matter hyperintense foci are seen in the periventricular area in the centrum semioval mostly indicating deep white matter microvascular ischemia. Electronically signed by Mel Cornejo 04-10-2024 7:51 PM
[2024-04-11 01:32] VITALS: O2SAT 94
[2024-04-11 07:43] VITALS: BP 107/71; PULSE 85; RESP 18; TEMP 97.5
[2024-04-11] MEDS: ALUMINUM/MAGNESIUM/SIMETH (MAALOX MAX) 30 ML UDC PO PRN (14:36)
--- NOTE | 2024-04-11 15:22 | Hospitalist Progress Note ---
Date of Service April 11, 2024 Assessment & Plan (1) Decreased sensation: Plan Past medical history of [place]ocona's disease, hyperlipidemia, orthostatic hypotension, GERD, irritable bowel syndrome, CKD, lumbar degenerative disease, osteoarthritis, lupus, generalized anxiety disorder presented to the hospital for evaluation of decreased sensation gradually progressing from her feet up to mid abdomen since the morning of arrival 04/01. C5-C6 compressive myelopathy --S/P #1 anterior cervical corpectomy with bilateral foraminotomies C6. #2 anterior cervical arthrodesis C5-C7. #3 placement of Spira 23 mm cage filled with os designed and locally harvested morselized autograft C5-C7. #4 application of K2 M plate and screws from C5-C7 On April 04, 2024 --Patient presents with pins and needlelike sensation extending from feet up to subxiphoid area gradually over few hours on 04/01 AM. No motor weakness (left leg weakness at baseline). No history of trauma/fall recently. No incontinence s/s. No back /spine pain on exam, no fever. --Electrolytes within normal limits. B12 and TSH wnl. --CK within normal limits --CTA aorta with runoffno acute finding --MR L spine and T spine - age related finding as well as evidence of previous fusion of L4-S1. --MR C spine w/ c5-6 compressive myelopathy and Multilevel disc bulges with spinal canal and neural foraminal stenosis. -- Patient reports persistent symptoms despite surgery --Thoracic Spine MRI:Interval cervical spine fusion and internal fixation, the lesion is not fully covered into the study. Redemonstration of the previously noted thoracic spine degenerative changes with minimal T6-7 disc protrusion. Redemonstration of the previously noted L4, L5 and S1 vertebral fixation, mild lumbar degenerative changes and mild multilevel disc herniations. --Appreciate neurology input: Will discontinue gabapentin and start on Lyrica --Patient will need EMG/Nerve conduction studies as outpatient --Continue PT OT, fall precautions --Pain control Continue home hydrocortisone Appreciate orthopedics help: Advised to follow-up on discharge Patient reports persistent numbness below the xiphoid process down to lower extremity MRI thoracic spine, MRI brain findings do not correlate with her symptoms Per discussion with patient's family on 04/10/2024 and 04/11/24:: Patient had chronic numbness. Advised neurology follow-up for further management Encourage patient to go to rehab but patient refused. Prefers to go home with home health Plan to discharge home today Constipation KUB:Moderate retained stool. 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 Tena and Dr. Alarcon today Unchanged numbness below xiphoid process Patient refuses rehab placement Denies any chest pain, dyspnea, nausea, vomiting, abdominal pain Updated patient's family over the phone Plan to discharge home with home health Review of Systems Review of Systems: All systems reviewed & are unremarkable except as noted in Subjective Physical Exam Physical Exam: Physical Exam: Vitals signs as noted above General Appearance:Obese, no apparent distress Head: normocephalic, Atraumatic Eyes: normal inspection, EOMI Neck: supple, Trachea midline Respiratory/Chest: Normal breath sounds, CTA, No accessory muscle use Cardiovascular: S1, S2, No murmur Abdomen/GI:Soft, Non tender, Bowel sounds present Extremities/Musculoskeletal:normal inspection, no edema Neurologic/Psych:AAOX3, left lower extremity decreased strength/mobility chronic +numbness below the xiphoid process down to lower extremities Skin: normal color, warm Results & Data Results & Data Vital Signs (Past 12 Hours) Vital Signs Temp Pulse Resp BP Pulse Ox O2 Del Method O2 Flow Rate 04/11/24 08:47 94 Room Air 04/11/24 07:40 36.4 C L 85 18 107/71 94 Nasal Cannula 2
--- NOTE | 2024-04-11 15:30 | Discharge Summary ---
Date of Service April 11, 2024 Admission HPI Per Admitting Provider History obtained from interview with the patient and chart review. Past medical history of [place]'s disease, hyperlipidemia, orthostatic hypotension, GERD, irritable bowel syndrome, CKD, lumbar degenerative disease, osteoarthritis, lupus, generalized anxiety disorder Patient presented to the hospital for evaluation of decreased sensation gradually progressing from her feet since this morning up to mid abdomen. She reports that she started to feel "pins and needle" sensation starting in her bilateral foot that gradually ascending upward to just below subxiphoid area. She denies any recent fall, trauma or injuries. She has no motor issues. Patient denies any recent viral illness, diarrhea, fever, chills, sore throat, chest pain, shortness of breath or abdominal pain. Admission Exam Per Admitting Provider Constitutional: Alert oriented x 3; not in distress. Respiratory: Bilateral vesicular breath sound. Cardiovascular: RRR, no murmur, no edema Vessels: no JVD or carotid bruit Chest: normal inspection of chest Abdomen: normal bowel sounds, soft, nontender, no hepatosplenomegaly Musculoskeletal: no cyanosis or clubbing, extremities motor strength 5/5 Skin: no rashes, warm and dry normal turgor Neurologic: PERRL, EOMI, accommodation nl, no face palsy, no dysarthria Motor strength 5 x 5 in all extremities except left lower extremity. Reports that her left leg is weak at baseline due to " titanium" brought. Decree sensation to light touch after subxiphoid area. She withdraws to painful stimuli at some areas. Psychiatric: A+Ox3, euthymic affect Principal Diagnosis C5-C6 compressive myelopathy Acute on chronic numbness--unclear etiology Discharge Data Allergies Allergy/AdvReac Type Severity Reaction Status Date / Time No Known Allergies Allergy Verified 12/11/20 08:46 Consultations 04/01/24 16:30 ED Decision to Admit Stat 04/01/24 18:37 Consult Neurology Routine 04/01/24 20:46 Consult Orthopedic Spine Surgery Routine Procedures Performed Operation Date: 04/04/24 09:10 Actual Procedures p C6 Anterior Cervial Corpectomy(Not Applicable) - Lucio Tena, DO Laboratory Results WBC 10.61 K/ul (4.8-10.8) 04/10/24 05:56 RBC 5.25 M/uL (4.20-5.40) 04/10/24 05:56 Hgb 15.0 g/dl (12.0-16.0) 04/10/24 05:56 Hct 44.5 % (37.0-47.0) 04/10/24 05:56 MCV 84.8 fL (80.0-100.0) 04/10/24 05:56 MCH 28.6 pg (25.0-34.0) 04/10/24 05:56 MCHC 33.7 g/dL (32.0-36.0) 04/10/24 05:56 RDW Std Deviation 43.1 fL (36.4-46.3) 04/10/24 05:56 RDW Coeff of Marcy 14.0 % (11.5-14.5) 04/10/24 05:56 Plt Count 234 K/uL (130-400) 04/10/24 05:56 MPV 10.6 fL (9.4-12.4) 04/10/24 05:56 Immature Gran % (Auto) 0.7 % 04/06/24 06:51 Neut % (Auto) 91.1 % 04/06/24 06:51 Lymph % (Auto) 4.7 % 04/06/24 06:51 [place] % (Auto) 3.4 % 04/06/24 06:51 Eos % (Auto) 0.0 % 04/06/24 06:51 Baso % (Auto) 0.1 % 04/06/24 06:51 Neut # (Auto) 17.19 K/uL (1.40-6.50) H 04/06/24 06:51 Lymph # (Auto) 0.89 K/uL (1.20-3.40) L 04/06/24 06:51 [place] # (Auto) 0.64 K/uL (0.11-0.59) H 04/06/24 06:51 Eos # (Auto) 0.00 K/uL (0.00-0.50) 04/06/24 06:51 Baso # (Auto) 0.02 K/uL (0.00-0.20) 04/06/24 06:51 Immature Gran # (Auto) 0.14 K/uL (0.01-0.20) 04/06/24 06:51 PT 10.9 Seconds (9.0-12.0) 04/01/24 13:00 INR 1.0 (0.9-1.1) 04/01/24 13:00 APTT 28 Seconds (21-31) 04/01/24 13:00 PTT Ratio 1.0 04/01/24 13:00 Sodium 136 mmol/L (136-145) 04/10/24 05:56 Potassium 3.8 mmol/L (3.5-5.1) 04/10/24 05:56 Chloride 99 mmol/L (98-107) 04/10/24 05:56 Carbon Dioxide 30 mmol/L (21-32) 04/10/24 05:56 Anion Gap 7 (3-11) 04/10/24 05:56 BUN 14 mg/dl (6-23) 04/10/24 05:56 Creatinine 0.97 mg/dl (0.6-1.2) 04/10/24 05:56 Est Cr Clr Drug Dosing 73.7 ml/min 04/10/24 05:56 eGFR 67.73 04/10/24 05:56 BUN/Creatinine Ratio 14.4 (10-20) 04/10/24 05:56 Glucose 109 mg/dl (70-99(Fasting)) H 04/10/24 05:56 Calcium 9.4 mg/dl (8.6-10.3) 04/10/24 05:56 Phosphorus 3.7 mg/dl (2.5-4.9) 04/03/24 06:51 Magnesium 2.0 mg/dl (1.7-2.4) 04/03/24 06:51 Total Bilirubin 0.4 mg/dl (0.2-1.0) 04/02/24 06:43 AST 17 U/L (13-39) 04/02/24 06:43 ALT 12 U/L (7-52) 04/02/24 06:43 Alkaline Phosphatase 118 U/L (34-104) H 04/02/24 06:43 Total Creatine Kinase 65 U/L (26-192) 04/01/24 13:00 Total Protein 7.1 gm/dl (6.0-8.3) 04/02/24 06:43 Albumin 4.3 gm/dl (3.4-5.0) 04/02/24 06:43 Globulin 2.8 gm/dl (2.5-4.0) 04/02/24 06:43 Albumin/Globulin Ratio 1.5 (0.9-2) 04/02/24 06:43 Vitamin B12 437 pg/ml (180-914) 04/01/24 13:00 TSH 0.895 uIu/ml (0.300-4.500) 04/01/24 13:00 Urine Color Yellow 04/01/24 12:45 Urine Appearance Clear (Clear) 04/01/24 12:45 Urine pH 6.5 (4.5-7.5) 04/01/24 12:45 Ur Specific [place] 1.008 (1.000-1.030) 04/01/24 12:45 Urine Protein Negative (Negative) 04/01/24 12:45 Urine Glucose (UA) Negative (Negative) 04/01/24 12:45 Urine Ketones Trace (Negative) H 04/01/24 12:45 Urine Blood Negative (Negative) 04/01/24 12:45 Urine Nitrite Negative (Negative) 04/01/24 12:45 Urine Bilirubin Negative (Negative) 04/01/24 12:45 Urine Urobilinogen Negative (Negative) 04/01/24 12:45 Ur Leukocyte Esterase Negative (Negative) 04/01/24 12:45 Impressions Aorta w/Runoff CTA 04/01/24 14:32 CT ang AA runof w jason cheng CLINICAL HISTORY: aortic occlusion concern TECHNIQUE: CT angiography of the abdomen and pelvis with bilateral lower extremity runoff after 120 cc Optiray IV. Sagittal and coronal reformats and MIPS were created. DLP is [id number]. COMPARISON STUDY: 11/03/[address] FINDINGS: Vascular findings: There are mild scattered atherosclerotic calcifications most prominent at the distal aorta. No abdominal aortic aneurysm or significant aortic luminal narrowing seen. Mesenteric and renal arteries are patent. Bilateral common, internal, and external iliac and bilateral common femoral arteries show no significant narrowing or occlusion. Right lower extremity: Deep femoral artery is patent. Right SFA/pop shows no significant narrowing or occlusion. There is three-vessel runoff to the right foot. Left lower extremity: Deep femoral artery is patent. Left SFA/pop shows no significant narrowing. There is three-vessel runoff to the left foot. ABDOMEN: Gallbladder is surgically absent. Liver, spleen, pancreas, and adrenal glands are unremarkable. Kidneys show no hydronephrosis. ABDOMEN: Wood catheter is present in the urinary bladder is decompressed. Uterus is absent. No adnexal mass. There is an interval [id number] sigmoid surgical anastomosis. No bowel inflammation or obstruction seen. No free fluid or free air. No enlarged adenopathy. Osseous structures: There is lower lumbar metallic fusion. José Miguel is present from the proximal left femur to the distal left tibia. No acute osseous findings. IMPRESSION: 1. No acute findings. 2. No significant arterial narrowing or occlusion seen. 3. Otherwise as described. ACT 112: Negative or not required by law. Electronically signed by: Earl Alfonso M.D. 04/01/2024 3:40 PM Lumbar Spine MRI 04/01/24 16:19 EXAM: MR lumbar spine wo con CLINICAL HISTORY: bilateral leg weakness/numbness. TECHNIQUE: Different MRI pulse sequences were performed in different planes for the lumbar spine without contrast. Images were sent through PACs for diagnostic interpretation. COMPARISON: MRI lumbar spine 03/08/2021. FINDINGS: Preserved physiological lumbar lordosis. Status post metallic hardware fixation by transpedicular screws/josé miguel device at L4, L5 and S1 vertebrae. Metallic interbody fusion devices. The metallic hardware induces inevitable blooming (ferromagnetic) artifacts that degrade the image quality. Spinolaminectomies of L4 and L5 neural arches opposite the corresponding L4-L5 and L5-S1 intervertebral discs. Postoperative changes are seen in the paraspinal muscles and posterior subcutaneous fat. Posteriorly oriented orthostatic subcutaneous edema is seen opposite the lumbar vertebrae, exhibiting low signals on T1 WI and bright signals on T2 on STIRWI. Schmorl's node and buckling of the upper vertebral endplate of the L5 vertebra. Schmorl's node is seen at the L4 lower vertebral endplate. Modic II marrow change is seen, with no other remarkable marrow changes. The scanned intervertebral discs show variable degrees of degeneration, denoted by low signal intensity on T2 WI and a relative reduction in height. Marginal osteophytes are also seen. Level by Level analysis: T12-L1: There is no focal disc pathology, spinal canal stenosis, or neural foraminal stenosis. L1-L2: There is a 2.3 mm annular bulge and 3.8 mm right central and subarticular extrusion with cranial migration indenting the thecal sac and compromising subarticular recesses more on the right side with impingement of the emerging nerve roots. There is mild spinal canal stenosis. No neural foraminal stenosis.Buckled ligamenta flava and arthropathic facet joints augment effects. L2-L3: There are 3 mm subarticular protrusions compromising subarticular recesses and neural foramina with impingement of the emerging nerve roots. Buckled ligamenta flava and arthropathic facet joints augment effects. L3-L4: There is a 3.3 mm annular bulge indenting the thecal sac, compromising the subarticular recesses. There is mild central canal stenosis and mild bilateral neural foraminal stenosis with impingement of the emerging nerve roots. Buckled ligamenta flava and arthropathic facet joints augment effects. L4-L5: There is postoperative bone hypertrophy and Condensed right perineural scarring, compromising. The subarticular recesses more on the right side with entrapment of the L5 nerve roots. A contrast-enhanced MRI study is recommended. L5-S1: There is A 2.4 mm annular bulge and 3.4 mm recurrent central herniation indenting the anterior epidural fat attenuating the subarticular recesses with mild bilateral neural foraminal stenosis with impingement of the emerging nerve roots. Arthropathic facet joints augment effects. The lower dorsal spinal cord, conus medullaris, and cauda equina nerve roots are unremarkable. Paravertebral soft tissue is unremarkable. No developmental canal stenosis. IMPRESSION: 1. Multilevel lumbar disc pathologies and postoperative status at the L1-L2 through the L5-S1 levels with effects exerted upon the spinal canal, subarticular recesses, and neural foramina with impingement of the emerging nerve roots. Postoperative scarring, buckled ligamenta flava and arthropathic facet joints augment effects. 2. Posteriorly oriented orthostatic subcutaneous edema is seen opposite the lumbar vertebrae, exhibiting low signals on T1 WI and bright signals on T2 on STIRWI. 3. Modic II marrow change. 4. L1-L2: There is a 2.3 mm annular bulge and 3.8 mm right central and subarticular extrusion with cranial migration. 5. L2-L3: There are 3 mm subarticular protrusions. 6. L3-L4: There is a 3.3 mm annular bulge. 7. L4-L5: There is postoperative bone hypertrophy and Condensed right perineural scarring. 8. L5-S1: There is A 2.4 mm annular bulge and 3.4 mm recurrent central herniation. 9. The comparison is consistent with a stationary course. 10. The reported findings explain the current clinical status. Electronically signed by Mel Cornejo 04-01-2024 7:12 PM Cervical Spine MRI 04/02/24 08:42 EXAM: MR cervical spine wo con CLINICAL HISTORY: leg weakness TECHNIQUE: MRI of the cervical spine was performed. Sequences obtained include sagittal T1-weighted, T2-weighted, STIR (Short Tau Inversion Recovery), and axial T2-weighted sequences. COMPARISON: Comparison is made with prior imaging studies dated X-ray 11/30/2020. FINDINGS: Vertebral Alignment: Straightening of cervical curvature due to severe muscular spasm. Mild retrolisthesis C5 over C6 and C6 over C7 noted. No evidence of fracture or subluxation. Vertebral Bodies and Intervertebral Discs: Normal vertebral body height and alignment. Intervertebral discs demonstrate significant disc dessicatory changes with reduced disc height at C4-C5, C5-C6, and C6-C7 levels. [id number]-[id number] analysis: C2-C3: There is no significant disc pathology. Normal morphology of the ligamentum flava. No arthropathy of the uncovertebral and zygapophyseal joints. No significant spinal canal stenosis C3-C4: There is a 3.5 mm bi-posterolateral disc bulge/osteophyte complex compressing the exiting nerve roots and causing bilateral mild to moderate neural foraminal stenosis. Moderate arthropathy of the uncovertebral and zygapophyseal joints. No significant spinal canal stenosis. C4-C5: There is a 2 mm diffuse disc bulge/osteophyte complex indenting the anterior thecal sac and causing bilateral mild neural foraminal stenosis. Normal morphology of the ligamentum flava. No arthropathy of the uncovertebral and zygapophyseal joints. No significant spinal canal stenosis. C5-C6: There is a 6 mm broad-based asymmetric disc bulge/osteophyte complex obliterating the ventral thecal sac more so in the right half, causing moderate spinal canal stenosis and bilateral marked neural foraminal stenosis. There is also obliteration of the right neural foramen, compressing the right exiting nerve root moderately. Ligamentum flava hypertrophy noted. Moderate arthropathy of the uncovertebral and zygapophyseal joints. C6-C7: There is a 4 mm broad-based central asymmetric disc bulge obliterating ventral thecal sac causing mild spinal canal stenosis and moderate to marked neural foraminal stenosis. Ligamentum flava hypertrophy noted. Moderate arthropathy of the uncovertebral and zygapophyseal joints. C7-T1: There is no significant disc pathology. Normal morphology of the ligamentum flava. No arthropathy of the uncovertebral and zygapophyseal joints. No significant spinal canal stenosis A small right foraminal perineural cyst was noted. Spinal Cord and Nerve Roots: The spinal cord demonstrates altered signal intensity at the C5-C6 level. Soft Tissues: Paraspinal soft tissues appear normal without evidence of abnormal signal intensity or mass lesions. IMPRESSION: 1. Straightening of cervical curvature due to muscular spasm. Stable 2. Multilevel disc bulges with spinal canal and neural foraminal stenosis. 3. 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 New 4. A small right foraminal perineural cyst was noted at the C7-T1 level. New interval. 5. Mild retrolisthesis C5 over C6 and C6 over C7 noted. Stable. Electronically signed by Mel Cornejo 04-02-2024 12:52 PM Cervical Spine X-Ray 04/04/24 00:00 FL cervical 2-3V CLINICAL HISTORY: C6 CORPECTOMY COMPARISON STUDY: Cervical spine MRI April 02, 2024. FLUOROSCOPY TIME: 8 seconds. Ka,r: 0.71 mGy FLUOROSCOPIC IMAGES: 2 FINDINGS: Fluoroscopy was provided during C6 corpectomy and C5-C7 anterior discectomy and fusion. Surgical drain is in place. Linear radiodensity within th e operative bed on the initial image is not present on the subsequent image. Endotracheal tube is partially imaged. IMPRESSION: Fluoroscopy provided for C6 corpectomy and C5-C7 anterior discectomy and fusion. ACT 112: Negative or not required by law. Electronically signed by: Bridger Lazo M.D. 04/04/2024 11:28 AM Chest X-Ray 04/06/24 09:17 XR chest 1V portable CLINICAL HISTORY: Hypoxia COMPARISON STUDY: 11/30/2020 FINDINGS: Heart size and pulmonary vasculature are normal. There is interval mild stranding opacity in the lung bases. No other consolidation or pleural effusion. No pneumothorax. IMPRESSION: Atelectasis versus early pneumonia in the lung bases. ACT 112: Negative or not required by law. Electronically signed by: Earl Alfonso M.D. 04/06/2024 10:10 AM KUB X-Ray 04/07/24 09:14 KUB HISTORY: contipation COMPARISON STUDY: 04/01/2024 CT FINDINGS: Stable right upper quadrant surgical clips and lower lumbar metallic fusion. There is moderate retained stool. No bowel obstruction seen. No gross free air. IMPRESSION: Moderate retained stool. ACT 112: Negative or not required by law. The above report was generated using voice recognition software. It may contain grammatical, syntax or spelling errors. Electronically signed by: Earl Alfonso M.D. 04/07/2024 9:51 AM Thoracic Spine MRI 04/08/24 03:14 EXAM: MR thoracic spine wo/w con CLINICAL HISTORY: lower ext numbness. TECHNIQUE: Multiplanar, multi-sequential MRI of the thoracic spine was performed before and after the administration of intravenous contrast. Imaging includes T1-weighted, T2-weighted, and STIR sequences in sagittal and axial planes. Post-contrast sequences were obtained to assess for any abnormal enhancement. COMPARISON: MRI dated 04/01/2024. FINDINGS: Interval C5-6 and C6-7 discectomy, spinal fusion and internal fixation. The lesion was not fully covered in today's study. Redemonstration of L4, L5 and S1 vertebral fusion and internal fixation. Mild lumbar spondylotic changes with mild multilevel disc herniations. Today's examination is degraded by patient's involuntary motion. Vertebrae: Normal alignment of the thoracic vertebrae. No fractures, lytic or sclerotic lesions. Mild spondylotic change noted. Schmor's node at the upper endplate of T7 vertebra. Fatty marrow changes of T6-7 opposing vertebral endplates. A small round T1W/T2W hyperintense focus at T11 vertebral body, could be a hemangioma. Intervertebral Discs: Mild decreased height and signal intensity of the intervertebral discs. Pfirmann grade 2. Level by level analysis: C7-T1: No significant disc pathology. No significant spinal canal stenosis. T1-T2: No significant disc pathology. No significant spinal canal stenosis. T2-T3: No significant disc pathology. No significant spinal canal stenosis. T3-T4: No significant disc pathology. No significant spinal canal stenosis. T4-T5: No significant disc pathology. No significant spinal canal stenosis. T5-T6: No significant disc pathology. No significant spinal canal stenosis. T6-T7: Minimal posterior central disc protrusion, indenting ventral thecal aspect and no foraminal compromise. No significant spinal canal stenosis. T7-T8: No significant disc pathology. No significant spinal canal stenosis. T8-T9: No significant disc pathology. No significant spinal canal stenosis. T9-T10: No significant disc pathology. No significant spinal canal stenosis. T10-T11: No significant disc pathology. No significant spinal canal stenosis. T11-T12: No significant disc pathology. No significant spinal canal stenosis. Spinal Cord: Normal signal intensity and morphology of the spinal cord. No evidence of intrinsic cord lesions, syrinx, or abnormal signal changes. Spinal Canal and Neural Foramina: Spinal canal is of normal caliber with no evidence of spinal stenosis. Neural foramina are patent bilaterally at all levels. No evidence of nerve root compression. Normal ligamentum flava morphology. Facet Joints: Normal appearance of the facet joints. No evidence of facet arthropathy or significant degenerative changes. Soft Tissues: Normal appearance of the paraspinal soft tissues. No abnormal masses, fluid collections, or signs of inflammation. Thoracic Kyphosis: Normal thoracic kyphosis without abnormal curvature IMPRESSION: 1. Interval cervical spine fusion and internal fixation, the lesion is not fully covered into the study. 2. Redemonstration of the previously noted thoracic spine degenerative changes with minimal T6-7 disc protrusion. 3. Redemonstration of the previously noted L4, L5 and S1 vertebral fixation, mild lumbar degenerative changes and mild multilevel disc herniations. Electronically signed by Mel Cornejo 04-08-2024 7:58 PM Brain MRI 04/10/24 10:36 EXAM: MR brain wo/w con CLINICAL HISTORY: Stroke-like symptoms TECHNIQUE: MRI of the brain was performed with and without intravenous contrast administration of 9 ml Gadavist. Sequences obtained include pre-contrast and post-contrast T1-weighted, T2-weighted, FLAIR (Fluid-Attenuated Inversion Recovery), DWI (Diffusion-Weighted Imaging), and ADC (Apparent Diffusion Coefficient) sequences. COMPARISON: None. FINDINGS: Brain Parenchyma: Subcortical deep white matter hyperintense foci are seen in the periventricular area in the centrum semioval mostly indicating deep white matter microvascular ischemia. No evidence of acute infarction or hemorrhage. [place]-white matter differentiation is preserved. No abnormal signal-intensity lesions were identified. Post-Contrast Findings: No abnormal enhancement of the brain parenchyma or meninges. Ventricles and Sulci: The ventricular system is within normal limits without evidence of hydrocephalus. Sulci and cisternal spaces are age-appropriate. Brainstem and Cerebellum: Normal appearance of the brainstem and cerebellum without focal lesions or abnormal enhancement. Vessels: Intracranial vessels appear normal without evidence of vascular malformations or aneurysms. Skull and Calvarium: No evidence of skull vault lesions or abnormal marrow signals within the calvarium. IMPRESSION: 1. No evidence of acute infarction, hemorrhage, or abnormal contrast enhancement. 2. Subcortical deep white matter hyperintense foci are seen in the periventricular area in the centrum semioval mostly indicating deep white matter microvascular ischemia. Electronically signed by Mel Cornejo 04-10-2024 7:51 PM Ordered Studies 04/01/24 14:32 CT ang AA runof w inc wo ifdon Stat 04/01/24 16:19 MRI Lumbar Spine [MR lumbar spine wo con] Stat MRI Thoracic [MR thoracic spine wo con] Stat 04/02/24 08:42 MR cervical spine wo con Urgent 04/04/24 FL cervical 2-3V Routine 04/08/24 03:14 MR thoracic spine wo/w con Routine 04/10/24 10:36 MRI Brain [MR brain wo/w con] Urgent Hospital Course (1) Decreased sensation: Plan Past medical history of [place]'s disease, hyperlipidemia, orthostatic hypotension, GERD, irritable bowel syndrome, CKD, lumbar degenerative disease, osteoarthritis, lupus, generalized anxiety disorder presented to the hospital for evaluation of decreased sensation gradually progressing from her feet up to mid abdomen since the morning of arrival 04/01. C5-C6 compressive myelopathy --S/P #1 anterior cervical corpectomy with bilateral foraminotomies C6. #2 anterior cervical arthrodesis C5-C7. #3 placement of Spira 23 mm cage filled with os designed and locally harvested morselized autograft C5-C7. #4 application of K2 M plate and screws from C5-C7 On April 04, 2024 --Patient presents with pins and needlelike sensation extending from feet up to subxiphoid area gradually over few hours on 04/01 AM. No motor weakness (left leg weakness at baseline). No history of trauma/fall recently. No incontinence s/s. No back /spine pain on exam, no fever. --Electrolytes within normal limits. B12 and TSH wnl. --CK within normal limits --CTA aorta with runoffno acute finding --MR L spine and T spine - age related finding as well as evidence of previous fusion of L4-S1. --MR C spine w/ c5-6 compressive myelopathy and Multilevel disc bulges with spinal canal and neural foraminal stenosis. -- Patient reports persistent symptoms despite surgery --Thoracic Spine MRI:Interval cervical spine fusion and internal fixation, the lesion is not fully covered into the study. Redemonstration of the previously noted thoracic spine degenerative changes with minimal T6-7 disc protrusion. Redemonstration of the previously noted L4, L5 and S1 vertebral fixation, mild lumbar degenerative changes and mild multilevel disc herniations. --Appreciate neurology input: Will discontinue gabapentin and start on Lyrica --Patient will need EMG/Nerve conduction studies as outpatient --Continue PT OT, fall precautions --Pain control Continue home hydrocortisone Appreciate orthopedics help: Advised to follow-up on discharge Patient reports persistent numbness below the xiphoid process down to lower extremity MRI thoracic spine, MRI brain findings do not correlate with her symptoms Per discussion with patient's family on 04/10/2024 and 04/11/24:: Patient had chronic numbness. Advised neurology follow-up for further management Encourage patient to go to rehab but patient refused. Prefers to go home with home health Plan to discharge home today Constipation KUB:Moderate retained stool. 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 as outpatient [place]'s diseasecontinue on hydrocortisone Mood disordercontinue on duloxetine, mirtazapine Orthostatic hypotensioncontinue midodrine Code Status Full code Disposition Refuses rehab despite explaining the risks and complications Home with home health Total Time Total Time Spent Total Time Spent (In Minutes): 56 minutes Discharge Plan Discharge Items Patient Disposition: Home - Home Health Services Reason For Visit: NUMBNESS LOWER EXTREMITIES Discharge Diagnosis: C5-C6 compressive myelopathy Acute on chronic numbness--unclear etiology Activity: Per Instructions section Exercise/Sports: Gradually increase as tolerated Non-emergency contact: Primary Care Provider, Surgeon and Neurologist Call non-emergency contact if: you have any medication questions, your symptoms worsen, your pain is concerning for you and you have a fever Follow-up/Referrals: Shazia Bee MD [Primary Care Provider] - 04/19/24 3:00 pm (Date & Time 04/19/2024 3:00 PM Provider: Shazia Bee MD Family Medicine [facility] ) Cesar Palma MD [Outside Practitioners] - 04/18/24 4:20 pm (Date & Time 04/18/2024 4:20 PM Provider: Bridget Vargas MD Neurology [facility], [place] ) Diet: Heart Healthy Addtl Attending Provider Instructions: ACTIVITY RECOMMENDATIONS: SELF CARE INSTRUCTIONS AFTER CERVICAL FUSIONS 1. No smoking. Smoking drastically decreases the chance of a solid fusion. 2. No bending, lifting more than 5 pounds, or twisting (roll like a log when turning in bed). 3. You may shower 3 days after surgery. Thoroughly dry wound. Do not soak in the tub. 4. Cervical collar: Must be worn at all times including sleeping. You may remove the brace only to bath, eat and if you are sitting in a recliner. 5. Please walk as much as you can for exercise. Gradually increase the distance that you walk as your endurance increases. 6. You may return to previous diet. SPECIAL CARE INSTRUCTIONS: VERY IMPORTANT TO READ AND REVIEW A. Do not take any anti-inflammatory medications (i.e. Indocin, Advil, Aspirin, Naprosyn, Aleve, Motrin, etc.) as these may inhibit the chance of a solid fusion. Tylenol is okay to take. B. Your surgical incision has been closed with a cosmetic suture under the skin that will dissolve in about 6 weeks. In 14 days, you can use a pair of clean scissors and cut the suture that is left outside of the skin at the ends of your incision. C. Complications are uncommon, but please contact us if you have any signs or symptoms of: 1. wound infection (fever higher than 102.5 degrees F, redness, separation of wound, drainage, or increasing pain from the incision) 2. blood clots in legs (pain, swelling, redness and warmth in legs) 3. urinary tract infection (fever higher than 102.5 degrees, burning upon urination or increased frequency of urination) 4. nerve problems (inability to walk on your toes or heels, numbness, loss of bowel or bladder control) 5. any other symptoms that concern you. D. Please call the office at if you have any concerns or questions about your operation or recovery. MANAGING PAIN AFTER SPINAL SURGERY 1. Narcotic medication is intended for short-term use and will be provided for surgical pain. Surgical pain usually lasts for a period of 4-6 weeks. Narcotic medication includes Percocet, Vicodin, Darvocet, Tylenol #3 or Lortab. 2. Longer-term pain is more appropriately treated with non-narcotic medication such as Tylenol ES. 3. Muscle spasm is not appropriately treated with narcotics. Muscle relaxers such as Soma, Flexeril or Skelaxin can be used along with Tylenol ES. 4. Remember that we all live with some "aches and pains". This is not unusual or uncommon after an injury or as we get older. 5. We will provide appropriate medication within the normal guidelines of their prescribed use. We will also be very cautious and aware of potential abuse and extended duration of patients' medication needs. 6. Please allow 2-3 days to process refills. Prescriptions will not be mailed but must be picked up at the office. FOLLOW UP VISIT: Keep your scheduled follow-up appointment. Any questions, please call the office at . Addtl Cuprous Chloride Helper Provider Instructions: Follow-up with your primary care physician in 1 week Follow-up with your neurologist for outpatient electromyography and nerve conduction studies in 2 to 3 weeks as advised Follow-up with your orthopedic surgeon Dr. Tena as advised Seek immediate medical attention if your symptoms reoccur or worsen Please take all medications as instructed on discharge list below. Please call if you have any questions or problems. You can reach a [facility] hospitalist on duty at [facility] 24 hours a day by calling [phone] Pending Studies at Discharge: No Stand-Alone Forms: [facility] [employer]Senasation, Smoking Cessation Medications and DC Order Prescriptions: New oxycodone 5 mg Tablet 5 mg PO Q4H PRN (Reason: pain) Qty: 14 0RF pregabalin [Lyrica] 50 mg Capsule 50 mg PO BID Qty: 60 0RF sennosides-docusate sodium [Senokot-S] 8.6-50 mg Tablet 2 tab PO HS PRN (Reason: Constipation) Qty: 30 0RF polyethylene glycol 3350 [Miralax] 17 gram/dose powder 8.5 g PO DAILY PRN (Reason: constipation) Qty: 119 0RF Continued hydrocortisone 5 mg tablet See Rx Instructions .ROUTE .COMPLEX Rx Instructions: Patient is a 2 tab in the morning and 1 tab at 2 PM, triple the dose during illness furosemide [Lasix] 40 mg Tablet 40 mg PO DAILY PRN (Reason: swelling) atorvastatin [Lipitor] 40 mg Tablet 40 mg PO DAILY potassium chloride 10 mEq capsule, extended release 10 meq PO BID aspirin 81 mg Tablet,Delayed Release (Dr/Ec) 81 mg PO DAILY trazodone 100 mg tablet 100 mg PO HS ropinirole 2 mg Tablet 2 mg PO HS Rx Instructions: administer 1-3 hours before bedtime pantoprazole 40 mg tablet,delayed release (DR/EC) 40 mg PO BID betamethasone dipropionate 0.05 % cream 1 applic TOPICAL BID hydroxyzine HCl 25 mg tablet 25 mg PO TID PRN (Reason: Anxiety) hydroxychloroquine 200 mg tablet 400 mg PO HS midodrine 10 mg Tablet 10 mg PO TID Rx Instructions: do not give last dose of day after 6PM or within 4 hrs of bedtime mirtazapine 7.5 mg tablet 7.5 mg PO HS duloxetine 60 mg capsule,delayed release(DR/EC) 60 mg PO DAILY Trulance 3 mg tablet 3 mg PO DAILY Wegovy 0.25 mg/0.5 mL pen injector 0.5 mg SUBCUT WK Changed baclofen 20 mg tablet 20 mg PO TID PRN (Reason: Muscle Spasm) Qty: 0 0RF Discontinued gabapentin 400 mg Capsule 400 mg PO TID Discharge Orders: Discharge Order (Routine); Ordered 04/11/24 Ordered By: Jose De Jesus Leger Admission Data Admit Date/Time: 04/01/24 18:37 Attending Provider: Jose De Jesus Leger Admit Provider: Hong Bobo Primary Care Provider: Shazia Bee Other Providers: Hong Bobo; Antione Yun; Lucio Tena
== END 2024-04-11 18:04 | disposition home health service (06) | DRG 29 ==
LOC: ED 12:08 → SUATTDRO 18:37 → 4W 18:37 → 3E 04-04 09:17